=== PATIENT | male | born 1945 | race Caucasian/White ===

== ENCOUNTER 2019-08-10 14:10 | Outpatient (RCR) | payer MEDICARE, SELFPAY ==
[2019-06-09 12:40] LABS: INR 2.4; Prothrombin Time 25.9 Seconds (11.1-14.7)
[2019-07-08 13:50] LABS: INR 2.5; Prothrombin Time 26.4 Seconds (11.1-14.7)
[2019-08-10 15:02] LABS: INR 2.4; Prothrombin Time 25.7 Seconds (11.1-14.7)
== END 2019-09-07 23:59 | disposition home or self-care (01) ==
LOC: ANHLAB 14:10
PROVIDERS: PCP Internal Medicine; Visit Provider Internal Medicine Cardiovascular Disease
DX: Z51.81 Encounter for therapeutic drug level monitoring (principal); Z79.01 Long term (current) use of anticoagulants; Z95.2 Presence of prosthetic heart valve
CPT/HCPCS: 36415; 85610

== ENCOUNTER 2019-12-09 11:26 | Outpatient (RCR) | payer MEDICARE, SELFPAY ==
[2019-09-12 14:25] LABS: INR 2.1; Prothrombin Time 23.5 Seconds (11.1-14.7)
[2019-09-29 15:08] LABS: INR 2.5; Prothrombin Time 26.9 Seconds (11.1-14.7)
[2019-12-09 12:08] LABS: INR 2.3; Prothrombin Time 24.6 Seconds (11.1-14.7)
== END 2019-12-11 23:59 | disposition home or self-care (01) ==
LOC: ANHLAB 11:26
PROVIDERS: PCP Internal Medicine; Visit Provider Internal Medicine Cardiovascular Disease
DX: Z95.2 Presence of prosthetic heart valve (principal); Z79.01 Long term (current) use of anticoagulants
CPT/HCPCS: 36415; 85610

== ENCOUNTER 2020-01-16 14:31 | Outpatient (CLI) | payer MEDICARE, SELFPAY ==
[2020-01-16 15:00] LABS: Add Urine Microscopic? YES; Appearance Urine Clear (Clear); Bilirubin Urine Negative (Negative); Blood Urine 1+ (Negative); Color Urine Yellow (Yellow); Glucose Urine UA 3+ mg/dL (Negative); Ketones Urine Negative (Negative); Leukocyte Esterase Ur Negative LEU/UL (NEGATIVE); Mucus Urine Rare /lpf; Nitrate Urine Negative (Negative); Protein Urine Negative (Negative); RBC Urine 0-2 /hpf (0-2); Specific Grav Ur 1.021 (1.001-1.035); Squamous Epithelial Cell Urine Rare /hpf (Few); Urobilinogen Urine Negative mg/dL (<2.0); WBC Urine 0-3 /hpf (0-3)
[2020-01-16 15:14] LABS: Alanine Aminotransferase 17 U/L (4-50); Albumin Level 4.4 g/dL (3.5-5.1); Alkaline Phosphatase 63 U/L (38-126); Aspartate Amino Transferase 23 U/L (17-59); Bilirubin,Total 0.8 mg/dL (0.2-1.3); Blood Urea Nitrogen 18 mg/dL (9-20); Calcium 9.5 mg/dL (8.4-10.2); Carbon Dioxide 30 mmol/L (22-30); Chloride 104 mmol/L (98-107); Estimated Glomerular Filt Rate > 60; Glucose 150 mg/dL (75-110); Potassium 4.2 mmol/L (3.4-5.0); Sodium 140 mmol/L (137-145)
[2020-01-16 15:25] LABS: Hemoglobin A1C 7.6 % (<5.7)
[2020-01-16 16:16] LABS: Free T4 Free Thyroxine 1.16 ng/mL (0.78-2.19)
[2020-01-19 06:10] LABS: Homocysteine 15.5 umol/L (<11.4)
[2020-01-19 11:41] LABS: Vitamin D 1,25 (OH)2 Total 24 pg/mL (18-72); Vitamin D2 1,25 (OH)2 <8 pg/mL; Vitamin D3 1,25 (OH)2 24 pg/mL
== END 2020-01-16 14:32 | disposition home or self-care (01) ==
PROVIDERS: PCP Internal Medicine; Visit Provider Internal Medicine
DX: R79.89 Other specified abnormal findings of blood chemistry (principal); E11.9 Type 2 diabetes mellitus without complications; Z79.4 Long term (current) use of insulin; I10 Essential (primary) hypertension; Z79.899 Other long term (current) drug therapy; E55.9 Vitamin D deficiency, unspecified
CPT/HCPCS: 36415; 80053; 81001; 82652; 83036; 83090; 84439; 84443

== ENCOUNTER 2020-02-08 00:59 | Outpatient (CLI) | payer MEDICARE, SELFPAY ==
[2020-02-08 19:00] LABS: SARS-CoV-2 RNA PCR Negative
== END 2020-02-08 01:00 | disposition home or self-care (01) ==
LOC: ANHCOVIDDT 00:59
PROVIDERS: PCP Internal Medicine; Visit Provider Internal Medicine Gastroenterology
DX: Z01.812 Encounter for preprocedural laboratory examination (principal); Z11.59 Encounter for screening for other viral diseases
CPT/HCPCS: 87635; C9803; U0003

== ENCOUNTER 2020-02-10 01:16 | Day surgery (SDC) | payer MEDICARE, SELFPAY ==
[2020-01-26 11:55] VITALS: BMI 22.4
[2020-02-10 08:05] VITALS: BP 148/45; PULSE 54; RESP 16; TEMP 36.8; O2SAT 95
[2020-02-10 08:21] VITALS: BMI 22.3
--- NOTE | 2020-02-10 08:35 | WPDANESEPPF ---
Anes - Initial Pre Proc Eval Procedure: Operation Date: 02/10/20 10:00 Proposed Procedures p Colonoscopy - James Diane MD Date/Time: 02/10/20 08:35 Surgeon: James Diane MD Pre Op Diagnosis: Poss Cologuard Patient Data Age: 74 Gender: M Height: 5 ft 10 in Weight: 71 kg Allergies Allergy/AdvReac Type Severity Reaction Status Date / Time No Known Allergies Allergy Verified 02/10/20 08:20 Home Medications Medication Instructions Recorded Confirmed Type lisinopril 10 mg tablet 10 mg PO DAILY #90 tablet 08/31/19 02/02/20 Rx potassium chloride 10 mEq 10 meq PO DAILY #90 cap 08/31/19 02/02/20 Rx capsule,extended release aspirin 81 mg tablet,delayed 81 mg PO DAILY 09/07/19 02/02/20 History release cinnamon bark 500 mg capsule 500 mg PO DAILY 09/07/19 02/02/20 History empagliflozin 10 mg-metformin ER 1 tablet PO QAM 09/07/19 02/02/20 History 1,000 mg tablet,extended release 24hr folic acid 1 mg tablet 1 mg PO DAILY 09/07/19 02/02/20 History mecobalamin (vitamin B12) 1,000 1,000 mcg PO DAILY 09/07/19 02/02/20 History mcg chewable tablet niacin 500 mg tablet 500 mg PO DAILY 09/07/19 02/02/20 History warfarin 1 mg tablet 1 mg PO DAILY #90 tablet 09/07/19 02/02/20 Rx warfarin 2.5 mg tablet 2.5 mg PO DAILY 09/07/19 02/02/20 History metoprolol tartrate 25 mg tablet 25 mg PO BID #180 tablet 09/13/19 02/02/20 Rx digoxin 250 mcg (0.25 mg) tablet 250 mcg PO DAILY #90 tablet 11/07/19 02/02/20 Rx pen needle, diabetic 31 gauge x #100 each 11/15/19 02/02/20 Rx /16 blood sugar diagnostic #100 each 12/15/19 02/02/20 Rx nystatin 100,000 unit/gram topical 1 applic TOPICAL TID #15 gm 12/16/19 02/02/20 Rx cream cholecalciferol (vitamin D3) 50 50 mcg PO DAILY 01/16/20 02/02/20 History mcg (2,000 unit) capsule omega-3 fatty acids 1,000 mg 2,000 mg PO BID cap 01/16/20 02/02/20 History capsule atorvastatin 20 mg PO HS 01/26/20 02/02/20 History furosemide 10 mg PO QAM 01/26/20 02/02/20 History insulin detemir U-100 [Levemir 15 unit SUB-Q BID 01/26/20 02/02/20 History FlexTouch U-100 Insuln] triamcinolone acetonide 1 applic TOPICAL BID 01/26/20 02/02/20 History Laboratory Tests 02/10/20 08:17 PT Pending INR Pending Patient hx anesthesia problems: none Family hx anesthesia problems: none PMFSH Past Medical History Medical History A-fib ASHD (arteriosclerotic heart disease) Benign essential hypertension Bladder wall thickening Blood in stool BMI 23.0-23.9, adult Bruit Colon cancer screening COPD (chronic obstructive pulmonary disease) Decreased pedal pulses Diabetes mellitus type 2, insulin dependent Elevated homocysteine Encounter for Medicare annual wellness exam Encounter for routine adult health examination without abnormal findings Foreskin inflammation Hearing loss Heart valve disorder Hematuria Hyperlipidemia On senior living drug therapy Personal history of nicotine dependence Vitamin D deficiency Surgical History Surgical History (Updated 02/10/20 @ 08:39 by Dionisio Mcguire MD) H/O aortic valve replacement Family History Family History Father Family history of malignant neoplasm Other Family history of cardiovascular disease Family history of pancreatic cancer Social History Social History Smoking status: Heavy tobacco smoker Second hand tobacco smoke exposure: Yes Alcohol intake: never Anes - Eval Final PreProcedure Day of Procedure 02/10/20 08:35 Patient weight: normal Heart: irregular rhythm Lungs: clear to auscultation Airway: Mallampati scale class II Neurological: alert and oriented Last oral intake: >/= 8 hours ASA classification: IV Emergent: no Anesthetic plan: proceed Anesthesia type and monitoring: general GIVS and standard monitoring Informed Cons
[2020-02-10 08:37] LABS: INR 1.2; Prothrombin Time 15.2 Seconds (11.1-14.7)
--- NOTE | 2020-02-10 08:41 | WPDGICN ---
Assessment and Plan Assessment and plan (1) Positive colorectal cancer screening using Cologuard test: Code(s): R19.5 - Other fecal abnormalities Status: Acute Assessment and Plan: Plan is for screening colonoscopy. Warfarin anticoagulation will be held briefly prior to exam period with approval of cardiology service. Further recommendations will be given after endoscopy. 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 Patient in usual state of health. Had a colon guard test that was found to be positive. Patient denies any abdominal pain. His weight appetite bowel movements are normal. He denies any blood in his stools. Family history is noncontributory. Past medical history is significant for aortic valve replacement for which she is on Coumadin anticoagulation. This will be held for several days in anticipation of screening colonoscopy. Review of Systems Review of Systems: All systems reviewed & are unremarkable except as noted in HPI and below PMFSH Past Medical History Medical History A-fib ASHD (arteriosclerotic heart disease) Benign essential hypertension Bladder wall thickening Blood in stool BMI 23.0-23.9, adult Bruit Colon cancer screening COPD (chronic obstructive pulmonary disease) Decreased pedal pulses Diabetes mellitus type 2, insulin dependent Elevated homocysteine Encounter for Medicare annual wellness exam Encounter for routine adult health examination without abnormal findings Foreskin inflammation Hearing loss Heart valve disorder Hematuria Hyperlipidemia 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 drug therapy Personal history of nicotine dependence Vitamin D deficiency Surgical History Surgical History H/O aortic valve replacement Family History Family History Father Family history of malignant neoplasm Other Family history of cardiovascular disease Family history of pancreatic cancer Social History Social History Smoking status: Heavy tobacco smoker Second hand tobacco smoke exposure: Yes Alcohol intake: never Meds Home Medications and Allergies Home Medications Medication Instructions Recorded Confirmed Type lisinopril 10 mg tablet 10 mg PO DAILY #90 tablet 08/31/19 02/02/20 Rx potassium chloride 10 mEq 10 meq PO DAILY #90 cap 08/31/19 02/02/20 Rx capsule,extended release aspirin 81 mg tablet,delayed 81 mg PO DAILY 09/07/19 02/02/20 History release cinnamon bark 500 mg capsule 500 mg PO DAILY 09/07/19 02/02/20 History empagliflozin 10 mg-metformin ER 1 tablet PO QAM 09/07/19 02/02/20 History 1,000 mg tablet,extended release 24hr folic acid 1 mg tablet 1 mg PO DAILY 09/07/19 02/02/20 History mecobalamin (vitamin B12) 1,000 1,000 mcg PO DAILY 09/07/19 02/02/20 History mcg chewable tablet niacin 500 mg tablet 500 mg PO DAILY 09/07/19 02/02/20 History warfarin 1 mg tablet 1 mg PO DAILY #90 tablet 09/07/19 02/02/20 Rx warfa
[2020-02-10 08:45] LABS: Glucose Point of Care 66 (65-105)
[2020-02-10] MEDS: GENTAMICIN 80MG/SOD CHL 50 ML 80 MG/50 ML BAG 100 MG IVPB (08:45)
[2020-02-10] MEDS: LACTATED RINGERS 1,000 ML 150 ML IV CONT (08:53)
[2020-02-10] MEDS: DEXTROSE 50% 25 GM/50 ML SYRINGE IV PUSH (08:55)
[2020-02-10 09:02] LABS: Glucose Point of Care 148 (65-105)
[2020-02-10] MEDS: AMPICILLIN 2 GM/NS 100 ML 2 GM/100 ML BAG IVPB (09:06)
[2020-02-10 09:30] VITALS: BP 96/46; PULSE 52; RESP 16; O2SAT 96
[2020-02-10 09:40] VITALS: BP 92/44; PULSE 45; RESP 16; O2SAT 100
[2020-02-10 09:40] LABS: Glucose Point of Care 117 (65-105)
[2020-02-10 09:50] VITALS: BP 120/51; PULSE 41; RESP 16; O2SAT 99
--- NOTE | 2020-02-10 10:03 | SUR.PHASEII ---
[facility] IS EN ROUTE; 20 MINUTES AWAY. PT DRESSED, AWAITING RIDE.
== END 2020-02-10 10:21 | disposition home or self-care (01) ==
PROVIDERS: PCP Internal Medicine; Visit Provider Internal Medicine Gastroenterology
PROC: 0DJD8ZZ Inspection of Lower Intestinal Tract, Via Natural or Artificial Opening Endoscopic (ICD-10-PCS; CPT 45378; principal; 2020-02-10 10:00)
DX: K63.5 Polyp of colon (principal); K57.30 Diverticulosis of large intestine without perforation or abscess without bleeding; I48.91 Unspecified atrial fibrillation; E11.9 Type 2 diabetes mellitus without complications; Z79.4 Long term (current) use of insulin; J44.9 Chronic obstructive pulmonary disease, unspecified; E78.5 Hyperlipidemia, unspecified; I50.9 Heart failure, unspecified; I25.10 Atherosclerotic heart disease of native coronary artery without angina pectoris; E55.9 Vitamin D deficiency, unspecified; Z95.2 Presence of prosthetic heart valve; Z79.01 Long term (current) use of anticoagulants; Z79.82 Long term (current) use of aspirin; Z79.899 Other long term (current) drug therapy; F17.200 Nicotine dependence, unspecified, uncomplicated
CPT/HCPCS: 45385; 36415; 85610; 87635; 88305; C9803; J0290; J1580; J2001; J2704; J7120; U0003

== ENCOUNTER 2020-04-18 13:51 | Outpatient (CLI) | payer MEDICARE, SELFPAY ==
[2020-04-18 14:38] LABS: Basophils Absolute Auto 0.1 K/mm3 (0.0-0.1); Basophils Percent Auto 0.5 % (0.2-1.2); Eosinophils Absolute Auto 0.3 K/mm3 (0-0.3); Hematocrit 50.8 % (42.0-52.0); Immature Granulocyte Absolute 0.04 K/mm3 (0.00-0.031); Immature Granulocyte Percent A 0.4 % (0-0.5); Lymphocytes Absolute Auto 3.07 K/mm3 (0.9-3.2); Lymphocytes Percent Auto 30.6 % (18.3-44.2); Mean Corpuscular HGB Conc 33.5 g/dl (32-36); Mean Corpuscular Hemoglobin 33.5 pg (26-34); Mean Platelet Volume 11.1 fl (7.4-10.4); Monocytes Absolute Auto 0.8 K/mm3 (0.1-0.6); Monocytes Percent Auto 7.6 % (2.6-8.5); Neutrophils Absolute Auto 5.8 K/mm3 (1.3-6.7); Neutrophils Percent Auto 57.9 % (45.5-73.1); Platelet Count Result 144 k/mm3 (150-375); Red Blood Count 5.08 M/mm3 (4.6-6.20); Red Cell Distribution Width 12.5 % (11.5-14.5)
[2020-04-18 14:47] LABS: Hemoglobin A1C 6.8 % (<5.7)
[2020-04-18 14:51] LABS: Alanine Aminotransferase 16 U/L (4-50); Albumin Level 4.5 g/dL (3.5-5.1); Alkaline Phosphatase 57 U/L (38-126); Anion Gap 3 mmol/L (8-16); Aspartate Amino Transferase 22 U/L (17-59); Bilirubin,Total 0.9 mg/dL (0.2-1.3); Blood Urea Nitrogen 20 mg/dL (9-20); Calcium 10.3 mg/dL (8.4-10.2); Carbon Dioxide 35 mmol/L (22-30); Chloride 101 mmol/L (98-107); Estimated Glomerular Filt Rate > 60; Glucose 169 mg/dL (75-110); Potassium 4.6 mmol/L (3.4-5.0); Sodium 139 mmol/L (137-145)
[2020-04-18 15:16] LABS: Add Urine Microscopic? YES; Appearance Urine Clear (Clear); Bilirubin Urine Negative (Negative); Blood Urine 1+ (Negative); Color Urine Yellow (Yellow); Glucose Urine UA 3+ mg/dL (Negative); Ketones Urine Negative (Negative); Leukocyte Esterase Ur Trace LEU/UL (NEGATIVE); Mucus Urine Rare /lpf; Nitrate Urine Negative (Negative); Protein Urine Negative (Negative); Specific Grav Ur 1.023 (1.001-1.035); Squamous Epithelial Cell Urine Occasional /hpf (Few); Urobilinogen Urine Negative mg/dL (<2.0)
[2020-04-18 15:21] LABS: Prostate Specific Antigen 3.1 ng/mL (< OR = 4.0)
[2020-04-18 15:55] LABS: Creatinine Urine 58.6 mg/dL
[2020-04-18 15:59] LABS: Microalbumin Urine Random 21.7 mg/L (0-16.7)
[2020-04-21 15:44] LABS: Homocysteine 16.9 umol/L (<11.4)
[2020-04-21 23:21] LABS: Vitamin D 1,25 (OH)2 Total 25 pg/mL (18-72); Vitamin D2 1,25 (OH)2 <8 pg/mL; Vitamin D3 1,25 (OH)2 25 pg/mL
== END 2020-04-18 13:52 | disposition home or self-care (01) ==
PROVIDERS: PCP Internal Medicine; Visit Provider Internal Medicine
DX: E55.9 Vitamin D deficiency, unspecified (principal); Z79.899 Other long term (current) drug therapy; R79.89 Other specified abnormal findings of blood chemistry; I10 Essential (primary) hypertension; E11.9 Type 2 diabetes mellitus without complications; Z79.4 Long term (current) use of insulin; Z12.5 Encounter for screening for malignant neoplasm of prostate
CPT/HCPCS: 36415; 80053; 81001; 82043; 82652; 83036; 83090; 84153; 84439; 84443; 85025; 85610; G0103

== ENCOUNTER 2020-06-13 10:14 | Outpatient (RCR) | payer MEDICARE, SELFPAY ==
[2020-03-27 14:44] LABS: INR 3.2; Prothrombin Time 32.1 Seconds (11.1-14.7)
[2020-04-18 14:49] LABS: Prothrombin Time 30.6 Seconds (11.1-14.7)
[2020-06-13 11:08] LABS: INR 1.7; Prothrombin Time 20.1 Seconds (11.1-14.7)
== END 2020-06-25 23:59 | disposition home or self-care (01) ==
LOC: ANHLAB 10:14
PROVIDERS: PCP Internal Medicine; Visit Provider Internal Medicine Cardiovascular Disease
DX: I48.21 Permanent atrial fibrillation (principal); Z95.4 Presence of other heart-valve replacement
CPT/HCPCS: 36415; 85610

== ENCOUNTER 2020-06-13 10:17 | Outpatient (CLI) | payer MEDICARE, SELFPAY ==
[2020-06-13 11:35] LABS: Digoxin 1.2 ng/mL (0.8-2.0)
== END 2020-06-13 10:18 | disposition home or self-care (01) ==
PROVIDERS: PCP Internal Medicine; Visit Provider Internal Medicine
DX: I48.91 Unspecified atrial fibrillation (principal); Z51.81 Encounter for therapeutic drug level monitoring; Z79.899 Other long term (current) drug therapy
CPT/HCPCS: 36415; 80162; 85610

== ENCOUNTER 2020-08-16 14:26 | Outpatient (CLI) | payer MEDICARE, SELFPAY ==
[2020-08-16 15:09] LABS: Alanine Aminotransferase 16 U/L (4-50); Albumin Level 4.2 g/dL (3.5-5.1); Alkaline Phosphatase 60 U/L (38-126); Anion Gap 5 mmol/L (8-16); Aspartate Amino Transferase 24 U/L (17-59); Bilirubin,Total 0.6 mg/dL (0.2-1.3); Blood Urea Nitrogen 19 mg/dL (9-20); Calcium 9.1 mg/dL (8.4-10.2); Carbon Dioxide 33 mmol/L (22-30); Chloride 101 mmol/L (98-107); Cholesterol 124 mg/dL (0-200); Estimated Glomerular Filt Rate > 60; Glucose 135 mg/dL (75-110); HDL Direct 41 mg/dL; Hemoglobin A1C 7.1 % (<5.7); Potassium 4.4 mmol/L (3.4-5.0); Sodium 139 mmol/L (137-145); Triglycerides 204 mg/dL (<150)
[2020-08-16 15:20] LABS: LDL Cholesterol Direct 59 mg/dL
[2020-08-16 16:04] LABS: Vitamin D 25 Hydroxy 90.1 ng/mL
== END 2020-08-16 14:27 | disposition home or self-care (01) ==
PROVIDERS: Family Provider Internal Medicine; PCP Internal Medicine; Visit Provider Internal Medicine
DX: E55.9 Vitamin D deficiency, unspecified (principal); E11.9 Type 2 diabetes mellitus without complications; Z79.4 Long term (current) use of insulin; I10 Essential (primary) hypertension; E78.2 Mixed hyperlipidemia
CPT/HCPCS: 36415; 80053; 80061; 82306; 83036; 85610

== ENCOUNTER 2020-10-01 12:34 | Outpatient (CLI) | payer MEDICARE, SELFPAY ==
--- NOTE | ~2020-10-01 | CT_ITS ---
EXAMINATION: CT lung screening DATE: 10/01/2020 13:39 INDICATION: Personal history of tobacco dependence TECHNIQUE: Computed tomography (CT) of the chest was performed without intravenous contrast. The dose -length product (DLP) was 93.94 mGy-cm. Automated exposure control and iterative reconstruction techn ique were employed. COMPARISON: 03/04/2019 FINDINGS: Calcified right lung nodules and calcified right hilar and mediastinal lymph nodes are cons istent with old granulomatous disease. No new or suspicious pulmonary nodule is identified. The lungs are free of acute opacities. There is no pleural effusion or pneumothorax. No pathologically enlarge d thoracic lymph nodes are identified. The heart size is normal. There are changes of aortic valve rodriguez rgery. There is moderate thoracic spondylosis. IMPRESSION: 1. Lung-RADS category 1: Negative. Continue annual screening with noncontrast low-dose chest CT in 12 months. Reviewed, dictated and finalized at location A. CE SUPPORT CLERK IMPRESSION: 1. Lung-RADS category 1: Negative. Continue annual screening with noncontrast l ow-dose chest CT in 12 months.
--- NOTE | ~2020-10-01 | US_ITS ---
EXAMINATION: US carotid duplex BI DATE: 10/01/2020 13:41 INDICATION: Peripheral vascular disease TECHNIQUE: Grayscale, color Doppler, and pulsed Doppler images of the cervical carotid arteries were obtained. The degree of vessel stenosis is placed in one of the following categories: normal, <50%, 5 0-69%, >=70% but less than near-occlusion, near-occlusion, or total occlusion. Note that percent sten osis relative to normal distal artery lumen diameter is indirectly measured from velocity measurement s as described by J Carlos, et al. Radiology 2003; [id number]:[id number]. Notes: Normal: Peak systolic velocity <125 centimeters/sec and no plaque <50%. Peak systolic velocity <125 ( EDV <40; ICA/CCA PSV ratio <2.0; used these factors only a tandem lesions or low cardiac output or co ntralateral disease) 50-69 %: PSV 125-230 (EDV 40-100; ratio 2-4) >= 70% but less than near occlusion: PSV greater than 230 (EDV > 100; ratio> 4.0) Near Occlusion: PSV that is variable; markedly narrowed lumen Occlusion: Absent flow on color/spectral Doppler and no lumen on beal scale. COMPARISON: None. FINDINGS: RIGHT: The right common carotid artery (CCA) peak systolic velocity (PSV) is 83 cm/s. The right internal car otid artery (ICA) PSV is 94 cm/s. The right ICA end-diastolic velocity (EDV) is 19 cm/s. The right IC A/CCA PSV ratio is 1.1. The external carotid artery (ECA) PSV is 110 cm/s. There is antegrade flow in the right vertebral artery. LEFT: The left CCA PSV is 144 cm/s. The left ICA PSV is 81 cm/s. The left ICA EDV is 12 cm/s. The left ICA/ CCA PSV ratio is 0.6. The ECA PSV is 90 cm/s. There is antegrade flow in the left vertebral artery. IMPRESSION: 1. Less than 50% stenosis in the right internal carotid artery by sonographic criteria. 2. Less than 50% stenosis in the left internal carotid artery by sonographic criteria. Reviewed, dictated and finalized at location A. ENT AMBASSADOR IMPRESSION: 1. Less than 50% stenosis in the right internal carotid artery by sonographic issac gomez. 2. Less than 50% stenosis in the left internal carotid artery by sonographic kenton acosta.
== END 2020-10-01 12:35 | disposition home or self-care (01) ==
PROVIDERS: PCP Internal Medicine; Visit Provider Internal Medicine
DX: Z12.2 Encounter for screening for malignant neoplasm of respiratory organs (principal); Z87.891 Personal history of nicotine dependence; I65.23 Occlusion and stenosis of bilateral carotid arteries
CPT/HCPCS: 71271; 93880

== ENCOUNTER 2020-10-23 13:47 | Outpatient (RCR) | payer MEDICARE, SELFPAY ==
[2020-08-16 15:06] LABS: INR 1.9; Prothrombin Time 22.2 Seconds (11.1-14.7)
== END 2020-11-14 23:59 | disposition home or self-care (01) ==
LOC: ANHLAB 13:47
PROVIDERS: Family Provider Internal Medicine; PCP Internal Medicine; Visit Provider Internal Medicine Cardiovascular Disease
DX: Z51.81 Encounter for therapeutic drug level monitoring (principal); I48.21 Permanent atrial fibrillation; I48.0 Paroxysmal atrial fibrillation; Z95.4 Presence of other heart-valve replacement; Z79.01 Long term (current) use of anticoagulants
CPT/HCPCS: 36415; 85610

== ENCOUNTER 2021-02-26 12:37 | Outpatient (RCR) | payer MEDICARE, SELFPAY ==
[2020-11-29 13:38] LABS: INR 1.5; Prothrombin Time 18.8 Seconds (11.1-14.7)
[2020-12-14 12:00] LABS: INR 2.3; Prothrombin Time 25.9 Seconds (11.1-14.7)
[2021-01-10 13:13] LABS: INR 2.2; Prothrombin Time 24.7 Seconds (11.1-14.7)
[2021-02-11 13:07] LABS: INR 2.3; Prothrombin Time 24.3 Seconds (11.1-14.7)
[2021-02-26 13:05] LABS: INR 2.5; Prothrombin Time 26.2 Seconds (11.1-14.7)
== END 2021-02-27 23:59 | disposition home or self-care (01) ==
LOC: ANHLAB 12:37
PROVIDERS: PCP Internal Medicine; Visit Provider Internal Medicine Cardiovascular Disease
DX: Z51.81 Encounter for therapeutic drug level monitoring (principal); I48.0 Paroxysmal atrial fibrillation; Z79.01 Long term (current) use of anticoagulants
CPT/HCPCS: 36415; 85610

== ENCOUNTER 2021-03-13 14:38 | Outpatient (CLI) | payer MEDICARE, SELFPAY ==
[2021-03-13 15:12] LABS: Basophils Absolute Auto 0.1 K/mm3 (0.0-0.1); Basophils Percent Auto 0.6 % (0.2-1.2); Eosinophils Absolute Auto 0.4 K/mm3 (0-0.3); Eosinophils Percent Auto 3.8 % (0-4.4); Hematocrit 47.8 % (42.0-52.0); Hemoglobin 15.7 g/dL (14.0-18.0); Immature Granulocyte Absolute 0.02 K/mm3 (0.00-0.031); Immature Granulocyte Percent A 0.2 % (0-0.5); Lymphocytes Absolute Auto 2.67 K/mm3 (0.9-3.2); Lymphocytes Percent Auto 28.9 % (18.3-44.2); Mean Corpuscular HGB Conc 32.8 g/dl (32-36); Mean Corpuscular Hemoglobin 33.5 pg (26-34); Mean Corpuscular Volume 102.1 fl (80-100); Mean Platelet Volume 11.1 fl (7.4-10.4); Monocytes Absolute Auto 0.8 K/mm3 (0.1-0.6); Monocytes Percent Auto 8.5 % (2.6-8.5); Neutrophils Absolute Auto 5.4 K/mm3 (1.3-6.7); Platelet Count Result 141 k/mm3 (150-375); Red Blood Count 4.68 M/mm3 (4.6-6.20); Red Cell Distribution Width 13.2 % (11.5-14.5); White Blood Count 9.2 K/mm3 (4.5-10.0)
[2021-03-13 15:23] LABS: Alanine Aminotransferase 17 U/L (4-50); Albumin Level 4.3 g/dL (3.5-5.1); Alkaline Phosphatase 57 U/L (38-126); Anion Gap 3 mmol/L (8-16); Aspartate Amino Transferase 25 U/L (17-59); Bilirubin,Total 0.9 mg/dL (0.2-1.3); Blood Urea Nitrogen 20 mg/dL (9-20); Calcium 9.4 mg/dL (8.4-10.2); Carbon Dioxide 33 mmol/L (22-30); Chloride 104 mmol/L (98-107); Estimated Glomerular Filt Rate > 60; Glucose 85 mg/dL (65-110); Potassium 4.2 mmol/L (3.4-5.0); Sodium 140 mmol/L (137-145)
[2021-03-13 15:39] LABS: Digoxin 1.2 ng/mL (0.8-2.0)
[2021-03-13 15:47] LABS: Add Urine Microscopic? YES; Appearance Urine Clear (Clear); Bacteria Urine Trace /hpf; Bilirubin Urine Negative (Negative); Blood Urine Negative (Negative); Color Urine Yellow (Yellow); Creatinine Urine 69.6 mg/dL; Glucose Urine UA 3+ mg/dL (Negative); Ketones Urine Negative (Negative); Leukocyte Esterase Ur Negative LEU/UL (Negative); MALB Creatinine Ratio 12.9 mg/g (0-30); Mucus Urine Rare /lpf; Nitrate Urine Negative (Negative); Protein Urine Negative (Negative); RBC Urine 0-2 /hpf (0-2); Specific Grav Ur 1.017 (1.001-1.035); Squamous Epithelial Cell Urine Rare /hpf (Few); Urobilinogen Urine Negative mg/dL (<2.0); WBC Urine 0-3 /hpf
[2021-03-13 15:57] LABS: Free T4 Free Thyroxine 0.93 ng/mL (0.78-2.19)
[2021-03-13 16:35] LABS: Folic Acid > 20.0 ng/mL (2.76->20)
[2021-03-13 20:12] LABS: Hemoglobin A1C 7.4 % (<5.7)
== END 2021-03-13 14:39 | disposition home or self-care (01) ==
PROVIDERS: PCP Internal Medicine; Visit Provider Internal Medicine
DX: I10 Essential (primary) hypertension (principal); Z79.899 Other long term (current) drug therapy; R63.4 Abnormal weight loss; E11.9 Type 2 diabetes mellitus without complications; Z79.4 Long term (current) use of insulin; E53.8 Deficiency of other specified B group vitamins
CPT/HCPCS: 36415; 80053; 80162; 81001; 82043; 82607; 82746; 83036; 84134; 84439; 84443; 85025

== ENCOUNTER 2021-04-04 11:04 | Outpatient (CLI) | payer MEDICARE, SELFPAY ==
[2021-04-04 12:21] LABS: Cholesterol 99 mg/dL (0-200); HDL Direct 39 mg/dL; Triglycerides 122 mg/dL (<150)
[2021-04-04 12:31] LABS: LDL Cholesterol Direct 45 mg/dL
== END 2021-04-04 11:05 | disposition home or self-care (01) ==
LOC: ANHLAB 11:08
PROVIDERS: PCP Internal Medicine; Visit Provider Internal Medicine
DX: E78.2 Mixed hyperlipidemia (principal); Z79.899 Other long term (current) drug therapy
CPT/HCPCS: 36415; 80061; 85610

== ENCOUNTER 2021-07-01 11:21 | Outpatient (RCR) | payer MEDICARE, SELFPAY ==
[2021-04-04 12:20] LABS: INR 2.7; Prothrombin Time 27.9 Seconds (11.1-14.7)
[2021-05-02 14:30] LABS: INR 2.3; Prothrombin Time 24.4 Seconds (11.1-14.7)
[2021-05-29 14:33] LABS: INR 2.8; Prothrombin Time 28.4 Seconds (11.1-14.7)
[2021-07-01 11:54] LABS: INR 2.4; Prothrombin Time 25.6 Seconds (11.1-14.7)
== END 2021-07-03 23:59 | disposition home or self-care (01) ==
LOC: ANHLAB 11:21
PROVIDERS: PCP Internal Medicine; Visit Provider Internal Medicine Cardiovascular Disease
DX: Z51.81 Encounter for therapeutic drug level monitoring (principal); I48.0 Paroxysmal atrial fibrillation; Z79.01 Long term (current) use of anticoagulants
CPT/HCPCS: 36415; 85610

== ENCOUNTER 2021-08-02 10:49 | Outpatient (CLI) | payer MEDICARE, SELFPAY ==
[2021-08-02 11:41] LABS: Anion Gap 3 mmol/L (8-16); Blood Urea Nitrogen 16 mg/dL (9-20); Calcium 9.4 mg/dL (8.4-10.2); Carbon Dioxide 34 mmol/L (22-30); Chloride 103 mmol/L (98-107); Cholesterol 156 mg/dL (0-200); Estimated Glomerular Filt Rate > 60; Glucose 138 mg/dL (65-110); HDL Direct 41 mg/dL; Potassium 4.4 mmol/L (3.4-5.0); Sodium 140 mmol/L (137-145); Triglycerides 97 mg/dL (<150)
[2021-08-02 11:44] LABS: Hemoglobin A1C 7.1 % (<5.7)
[2021-08-02 11:52] LABS: LDL Cholesterol Direct 92 mg/dL
[2021-08-02 12:12] LABS: Prostate Specific Antigen 2.9 ng/mL (< OR = 4.0)
== END 2021-08-02 10:50 | disposition home or self-care (01) ==
PROVIDERS: PCP Internal Medicine; Visit Provider Internal Medicine
DX: E78.2 Mixed hyperlipidemia (principal); I10 Essential (primary) hypertension; E11.9 Type 2 diabetes mellitus without complications; Z12.5 Encounter for screening for malignant neoplasm of prostate; Z79.4 Long term (current) use of insulin; Z79.899 Other long term (current) drug therapy
CPT/HCPCS: 36415; 80048; 80061; 83036; 84153; G0103

== ENCOUNTER 2021-10-04 08:25 | Outpatient (CLI) | payer MEDICARE, SELFPAY ==
--- NOTE | ~2021-10-04 | CT_ITS ---
EXAMINATION: CT lung screening DATE: 10/04/2021 09:02 INDICATION: Personal history of nicotine dependence, current smoker with 60 pack year history TECHNIQUE: Computed tomography (CT) of the chest was performed without intravenous contrast. The dose -length product (DLP) was 85.45 mGy-cm. Automated exposure control and iterative reconstruction techn [employer] were employed. COMPARISON: 10/01/2020 FINDINGS: There is mild emphysema. Calcified pulmonary nodules and calcified right hilar and mediasti nal lymph nodes are consistent with old granulomatous disease. The lungs are free of acute opacities. No new or suspicious pulmonary nodule is identified. There is no pleural effusion or pneumothorax. C hanges of aortic valve surgery are noted. There are no pathologically enlarged thoracic lymph nodes. The heart size is normal. Punctate calcifications in otherwise normal appearing liver and spleen like ly represent healed granulomatous disease. There is moderate thoracic spondylosis. IMPRESSION: 1. Lung-RADS category 1: Negative. Continue annual screening with noncontrast low-dose chest CT in 12 months. Reviewed, dictated and finalized at location B. BUILDER IMPRESSION: 1. Lung-RADS category 1: Negative. Continue annual screening with noncontrast l ow-dose chest CT in 12 months.
== END 2021-10-04 08:26 | disposition home or self-care (01) ==
PROVIDERS: PCP Internal Medicine; Visit Provider Internal Medicine
DX: Z12.2 Encounter for screening for malignant neoplasm of respiratory organs (principal); Z87.891 Personal history of nicotine dependence
CPT/HCPCS: 71271

== ENCOUNTER 2021-10-22 14:27 | Outpatient (RCR) | payer MEDICARE, SELFPAY ==
[2021-09-10 15:03] LABS: INR 2.4
[2021-10-22 18:46] LABS: INR 2.3; Prothrombin Time 24.9 Seconds (11.1-14.7)
== END 2021-12-09 23:59 | disposition home or self-care (01) ==
LOC: ANHLAB 14:27
PROVIDERS: Internal Medicine Cardiovascular Disease; PCP Internal Medicine
DX: Z95.4 Presence of other heart-valve replacement (principal)
CPT/HCPCS: 36415; 85610

== ENCOUNTER 2022-04-02 13:25 | Outpatient (CLI) | payer MEDICARE, SELFPAY ==
[2022-04-02 14:30] LABS: Alanine Aminotransferase 16 U/L (6-50); Albumin Level 4.3 g/dL (3.5-5.1); Alkaline Phosphatase 57 U/L (38-126); Anion Gap 11 mmol/L (8-16); Aspartate Amino Transferase 26 U/L (17-59); Bilirubin,Total 0.8 mg/dL (0.2-1.3); Blood Urea Nitrogen 18 mg/dL (9-20); Carbon Dioxide 31 mmol/L (22-30); Chloride 99 mmol/L (98-107); Cholesterol 102 mg/dL (0-200); Estimated Glomerular Filt Rate > 60; Glucose 165 mg/dL (65-110); HDL Direct 44 mg/dL; Potassium 4.4 mmol/L (3.4-5.0); Sodium 141 mmol/L (137-145); Triglycerides 84 mg/dL (<150)
[2022-04-02 14:36] LABS: LDL Cholesterol Direct 35 mg/dL
[2022-04-02 14:38] LABS: Hemoglobin A1C 6.4 % (<5.7)
[2022-04-02 14:44] LABS: Free T4 Free Thyroxine 1.24 ng/mL (0.78-2.19); Vitamin D 25 Hydroxy 83.6 ng/mL
== END 2022-04-02 13:26 | disposition home or self-care (01) ==
LOC: ANHLAB 13:28
PROVIDERS: PCP Internal Medicine; Visit Provider Internal Medicine
DX: E78.2 Mixed hyperlipidemia (principal); Z13.29 Encounter for screening for other suspected endocrine disorder; Z79.899 Other long term (current) drug therapy; I10 Essential (primary) hypertension; E11.9 Type 2 diabetes mellitus without complications; Z79.4 Long term (current) use of insulin; E55.9 Vitamin D deficiency, unspecified
CPT/HCPCS: 36415; 80053; 80061; 82306; 83036; 84439; 84443; 85610

== ENCOUNTER 2022-06-10 13:53 | Outpatient (RCR) | payer MEDICARE, SELFPAY ==
[2022-04-02 14:19] LABS: INR 3.2; Prothrombin Time 31.7 Seconds (11.1-14.7)
[2022-04-10 14:59] LABS: INR 2.7; Prothrombin Time 27.9 Seconds (11.1-14.7)
[2022-05-12 14:28] LABS: INR 2.5; Prothrombin Time 25.9 Seconds (11.1-14.7)
[2022-06-10 14:33] LABS: INR 2.7; Prothrombin Time 28.1 Seconds (11.1-14.7)
== END 2022-07-01 23:59 | disposition home or self-care (01) ==
LOC: ANHLAB 13:53
PROVIDERS: PCP Internal Medicine; Visit Provider Specialist
DX: Z51.81 Encounter for therapeutic drug level monitoring (principal); I48.21 Permanent atrial fibrillation; Z95.4 Presence of other heart-valve replacement; Z79.01 Long term (current) use of anticoagulants
CPT/HCPCS: 36415; 85610

== ENCOUNTER 2022-10-07 14:07 | Outpatient (RCR) | payer MEDICARE, SELFPAY ==
[2022-07-09 12:01] LABS: INR 2.9; Prothrombin Time 29.3 Seconds (11.1-14.7)
[2022-08-06 15:24] LABS: INR 2.5; Prothrombin Time 26.1 Seconds (11.1-14.7)
[2022-09-09 11:36] LABS: INR 2.5; Prothrombin Time 25.7 Seconds (11.1-14.7)
[2022-10-07 15:04] LABS: INR 2.5; Prothrombin Time 26.5 Seconds (11.1-14.7)
== END 2022-10-07 23:59 | disposition home or self-care (01) ==
LOC: ANHLAB 14:07
PROVIDERS: PCP Internal Medicine; Visit Provider Specialist
DX: Z51.81 Encounter for therapeutic drug level monitoring (principal); I48.21 Permanent atrial fibrillation; Z95.4 Presence of other heart-valve replacement; Z79.01 Long term (current) use of anticoagulants
CPT/HCPCS: 36415; 85610

== ENCOUNTER 2022-11-10 12:27 | Outpatient (CLI) | payer MEDICARE, SELFPAY ==
[2022-11-10 13:04] LABS: Basophils Absolute Auto 0.1 K/mm3 (0.0-0.1); Basophils Percent Auto 0.7 % (0.2-1.2); Eosinophils Absolute Auto 0.3 K/mm3 (0-0.3); Eosinophils Percent Auto 2.7 % (0-4.4); Hematocrit 49.3 % (42.0-52.0); Hemoglobin 16.2 g/dL (14.0-18.0); Immature Granulocyte Absolute 0.04 K/mm3 (0.00-0.031); Immature Granulocyte Percent A 0.4 % (0-0.5); Lymphocytes Absolute Auto 3.59 K/mm3 (0.9-3.2); Lymphocytes Percent Auto 32.7 % (18.3-44.2); Mean Corpuscular HGB Conc 32.9 g/dl (32-36); Mean Corpuscular Hemoglobin 33.1 pg (26-34); Mean Corpuscular Volume 100.8 fl (80-100); Mean Platelet Volume 10.7 fl (7.4-10.4); Monocytes Absolute Auto 0.9 K/mm3 (0.1-0.6); Monocytes Percent Auto 7.7 % (2.6-8.5); Neutrophils Absolute Auto 6.1 K/mm3 (1.3-6.7); Neutrophils Percent Auto 55.8 % (45.5-73.1); Platelet Count Result 159 k/mm3 (150-375); Red Blood Count 4.89 M/mm3 (4.6-6.20); Red Cell Distribution Width 13.4 % (11.5-14.5)
[2022-11-10 13:16] LABS: Alanine Aminotransferase 18 U/L (6-50); Albumin Level 4.7 g/dL (3.5-5.1); Alkaline Phosphatase 80 U/L (38-126); Anion Gap 4 mmol/L (8-16); Aspartate Amino Transferase 23 U/L (17-59); Bilirubin,Total 0.9 mg/dL (0.2-1.3); Blood Urea Nitrogen 16 mg/dL (9-20); Calcium 9.4 mg/dL (8.4-10.2); Carbon Dioxide 38 mmol/L (22-30); Chloride 101 mmol/L (98-107); Cholesterol 142 mg/dL (0-200); Estimated Glomerular Filt Rate > 60; Glucose 132 mg/dL (65-110); HDL Direct 46 mg/dL; Potassium 4.2 mmol/L (3.4-5.0); Sodium 143 mmol/L (137-145); Triglycerides 170 mg/dL (<150)
[2022-11-10 13:27] LABS: LDL Cholesterol Direct 67 mg/dL
[2022-11-10 13:36] LABS: Creatinine Urine 31.5 mg/dL
[2022-11-10 13:42] LABS: MALB Creatinine Ratio 83.8 mg/g (0-30); Microalbumin Urine Random 26.4 mg/L (0-16.7)
[2022-11-10 13:47] LABS: Prostate Specific Antigen 2.8 ng/mL (< OR = 4.0)
[2022-11-10 14:00] LABS: Free T4 Free Thyroxine 1.11 ng/mL (0.78-2.19); Vitamin D 25 Hydroxy 95.6 ng/mL
== END 2022-11-10 12:28 | disposition home or self-care (01) ==
PROVIDERS: PCP Internal Medicine; Visit Provider Internal Medicine
DX: E11.9 Type 2 diabetes mellitus without complications (principal); E55.9 Vitamin D deficiency, unspecified; E78.2 Mixed hyperlipidemia; I10 Essential (primary) hypertension; Z12.5 Encounter for screening for malignant neoplasm of prostate; Z79.4 Long term (current) use of insulin; Z79.899 Other long term (current) drug therapy; Z13.29 Encounter for screening for other suspected endocrine disorder
CPT/HCPCS: 36415; 80053; 80061; 82043; 82306; 83036; 84153; 84439; 84443; 85025; G0103

== ENCOUNTER 2023-01-07 15:11 | Outpatient (RCR) | payer MEDICARE, SELFPAY ==
[2022-11-12 15:32] LABS: INR 2.6; Prothrombin Time 27.3 Seconds (11.1-14.7)
[2022-12-08 15:09] LABS: Prothrombin Time 23.9 Seconds (11.1-14.7)
[2023-01-08 11:03] LABS: INR 2.5; Prothrombin Time 28.8 Seconds (11.1-14.7)
== END 2023-02-10 23:59 | disposition home or self-care (01) ==
LOC: ANHLAB 15:11
PROVIDERS: PCP Internal Medicine; Visit Provider Specialist
DX: Z51.81 Encounter for therapeutic drug level monitoring (principal); I48.21 Permanent atrial fibrillation; Z95.4 Presence of other heart-valve replacement; Z79.01 Long term (current) use of anticoagulants
CPT/HCPCS: 36415; 85610

== ENCOUNTER 2023-04-09 13:58 | Outpatient (RCR) | payer MEDICARE, SELFPAY ==
[2023-02-11 13:31] LABS: INR 2.1; Prothrombin Time 24.5 Seconds (11.1-14.7)
[2023-03-10 14:29] LABS: INR 2.2; Prothrombin Time 25.9 Seconds (11.1-14.7)
[2023-04-09 15:57] LABS: INR 2.2; Prothrombin Time 25.5 Seconds (11.1-14.7)
== END 2023-04-21 11:06 | disposition home or self-care (01) ==
LOC: ANHLAB 13:58
PROVIDERS: PCP Internal Medicine; Visit Provider Specialist
DX: Z51.81 Encounter for therapeutic drug level monitoring (principal); I48.21 Permanent atrial fibrillation; Z95.4 Presence of other heart-valve replacement; Z79.01 Long term (current) use of anticoagulants
CPT/HCPCS: 36415; 85610

== ENCOUNTER 2023-05-18 10:52 | Outpatient (CLI) | payer MEDICARE, SELFPAY ==
[2023-05-18 11:13] LABS: Basophils Percent Auto 0.5 % (0.2-1.2); Eosinophils Absolute Auto 0.1 K/mm3 (0-0.3); Eosinophils Percent Auto 0.9 % (0-4.4); Hematocrit 44.5 % (42.0-52.0); Hemoglobin 14.5 g/dL (14.0-18.0); Immature Granulocyte Absolute 0.01 K/mm3 (0.00-0.031); Immature Granulocyte Percent A 0.1 % (0-0.5); Lymphocytes Absolute Auto 1.95 K/mm3 (0.9-3.2); Lymphocytes Percent Auto 25.6 % (18.3-44.2); Mean Corpuscular HGB Conc 32.6 g/dl (32-36); Mean Corpuscular Hemoglobin 33.4 pg (26-34); Mean Corpuscular Volume 102.5 fl (80-100); Mean Platelet Volume 10.6 fl (7.4-10.4); Monocytes Absolute Auto 0.6 K/mm3 (0.1-0.6); Monocytes Percent Auto 8.1 % (2.6-8.5); Neutrophils Absolute Auto 4.9 K/mm3 (1.3-6.7); Neutrophils Percent Auto 64.8 % (45.5-73.1); Platelet Count Result 128 k/mm3 (150-375); Red Blood Count 4.34 M/mm3 (4.6-6.20); Red Cell Distribution Width 13.1 % (11.5-14.5); White Blood Count 7.6 K/mm3 (4.5-10.0)
[2023-05-18 11:20] LABS: Hemoglobin A1C 5.9 % (<5.7)
[2023-05-18 11:25] LABS: Alanine Aminotransferase 17 U/L (6-50); Albumin Level 4.2 g/dL (3.5-5.1); Alkaline Phosphatase 63 U/L (38-126); Anion Gap 4 mmol/L (8-16); Aspartate Amino Transferase 26 U/L (17-59); Bilirubin,Total 1.2 mg/dL (0.2-1.3); Blood Urea Nitrogen 15 mg/dL (9-20); Calcium 9.4 mg/dL (8.4-10.2); Carbon Dioxide 32 mmol/L (22-30); Chloride 103 mmol/L (98-107); Cholesterol 124 mg/dL (0-200); Estimated Glomerular Filt Rate > 60; Glucose 70 mg/dL (65-110); HDL Direct 48 mg/dL; Sodium 139 mmol/L (137-145); Triglycerides 99 mg/dL (<150)
[2023-05-18 11:36] LABS: LDL Cholesterol Direct 63 mg/dL
[2023-05-18 11:52] LABS: Thyroid Stimulating Hormone 0.623 uIU/mL (0.465-4.680)
[2023-05-18 11:53] LABS: Free T4 Free Thyroxine 1.15 ng/mL (0.78-2.19)
[2023-05-18 12:31] LABS: Folic Acid > 20.0 ng/mL (2.76->20)
[2023-05-19 10:06] LABS: Prostate Specific Antigen 2.8 ng/mL (< OR = 4.0)
== END 2023-05-18 10:53 | disposition home or self-care (01) ==
PROVIDERS: PCP Internal Medicine; Visit Provider Internal Medicine
DX: Z13.1 Encounter for screening for diabetes mellitus (principal); Z79.899 Other long term (current) drug therapy; I10 Essential (primary) hypertension; Z13.29 Encounter for screening for other suspected endocrine disorder; E11.9 Type 2 diabetes mellitus without complications; Z79.4 Long term (current) use of insulin; E78.5 Hyperlipidemia, unspecified; E53.8 Deficiency of other specified B group vitamins; Z12.5 Encounter for screening for malignant neoplasm of prostate
CPT/HCPCS: 36415; 80053; 80061; 82607; 82746; 83036; 84153; 84439; 84443; 85025; G0103

== ENCOUNTER 2023-05-20 13:58 | Outpatient (CLI) | payer MEDICARE, SELFPAY ==
--- NOTE | ~2023-05-20 | CT_ITS ---
EXAMINATION:CT lung screening DATE: 05/20/2023 14:30 INDICATION: Tobacco use. Current smoker with 59 pack year history. TECHNIQUE: Computed tomography (CT) of the chest was performed without intravenous contrast. Automate d exposure control and iterative reconstruction technique were employed. The dose-length product (DLP ) was 79.62 mGy-cm. COMPARISON: Chest CT 10/04/2021 FINDINGS: There is mild emphysema. There is mild scarring at the lung apices. There is mild atelectas is bilaterally. There is a 2 mm nodule in left lower lobe. There is a 3 mm nodule in left upper lobe. Calcified right lung nodules and calcified right hilar and mediastinal lymph nodes are consistent wi th old granulomatous disease. No pleural effusion. The heart size is normal. There are coronary arter y calcifications. No pericardial effusion. There are changes of replacement of aortic valve and graft repair of the ascending aorta. Calcifications in the liver and spleen are consistent with old granul omatous disease. There is severe cervical spondylosis and moderate thoracic spondylosis. IMPRESSION: 1. Lung-RADS category 2: Benign appearance or behavior. Continue annual screening with noncontrast lo w-dose chest CT in 12 months. Reviewed, dictated and finalized at location E. IMPRESSION: 1. Lung-RADS category 2: Benign appearance or behavior. Continue annual screeni ng with noncontrast low-dose chest CT in 12 months.
[2023-05-20 15:14] LABS: Appearance Urine Clear (Clear); Bilirubin Urine Negative (Negative); Blood Urine Negative (Negative); Color Urine Yellow (Yellow); Glucose Urine UA 3+ mg/dL (Negative); Ketones Urine Negative (Negative); Leukocyte Esterase Ur Negative LEU/UL (Negative); Nitrate Urine Negative (Negative); Protein Urine Negative (Negative); Specific Grav Ur 1.021 (1.001-1.035)
[2023-05-20 15:29] LABS: Add Urine Microscopic? NO
== END 2023-05-20 13:59 | disposition home or self-care (01) ==
PROVIDERS: PCP Internal Medicine; Visit Provider Internal Medicine
DX: Z12.2 Encounter for screening for malignant neoplasm of respiratory organs (principal); Z87.891 Personal history of nicotine dependence; Z79.899 Other long term (current) drug therapy; E78.2 Mixed hyperlipidemia; E11.9 Type 2 diabetes mellitus without complications; Z79.4 Long term (current) use of insulin; I10 Essential (primary) hypertension
CPT/HCPCS: 71271; 81003

== ENCOUNTER 2023-07-14 13:30 | Outpatient (RCR) | payer MEDICARE, SELFPAY ==
[2023-04-21 12:06] LABS: INR 1.7; Prothrombin Time 20.7 Seconds (11.1-14.7)
[2023-05-07 15:08] LABS: INR 2.4; Prothrombin Time 28.2 Seconds (11.1-14.7)
[2023-06-09 15:38] LABS: INR 2.4; Prothrombin Time 27.9 Seconds (11.1-14.7)
[2023-06-25 14:27] LABS: INR 2.3; Prothrombin Time 26.7 Seconds (11.1-14.7)
[2023-07-14 14:34] LABS: INR 2.8; Prothrombin Time 31.8 Seconds (11.1-14.7)
== END 2023-07-20 23:59 | disposition home or self-care (01) ==
LOC: ANHLAB 13:30
PROVIDERS: PCP Internal Medicine; Visit Provider Specialist
DX: I48.21 Permanent atrial fibrillation (principal)
CPT/HCPCS: 36415; 85610

== ENCOUNTER 2023-10-06 13:42 | Outpatient (CLI) | payer MEDICARE, SELFPAY ==
[2023-10-06 14:21] LABS: Basophils Absolute Auto 0.1 K/mm3 (0.0-0.1); Basophils Percent Auto 0.7 % (0.2-1.2); Eosinophils Absolute Auto 0.4 K/mm3 (0-0.3); Eosinophils Percent Auto 3.5 % (0-4.4); Hematocrit 45.9 % (42.0-52.0); Hemoglobin 14.9 g/dL (14.0-18.0); Immature Granulocyte Absolute 0.03 K/mm3 (0.00-0.031); Immature Granulocyte Percent A 0.3 % (0-0.5); Lymphocytes Absolute Auto 3.43 K/mm3 (0.9-3.2); Lymphocytes Percent Auto 34.3 % (18.3-44.2); Mean Corpuscular HGB Conc 32.5 g/dl (32-36); Mean Corpuscular Hemoglobin 33.3 pg (26-34); Mean Corpuscular Volume 102.7 fl (80-100); Mean Platelet Volume 10.8 fl (7.4-10.4); Monocytes Absolute Auto 0.8 K/mm3 (0.1-0.6); Monocytes Percent Auto 7.8 % (2.6-8.5); Neutrophils Absolute Auto 5.3 K/mm3 (1.3-6.7); Neutrophils Percent Auto 53.4 % (45.5-73.1); Platelet Count Result 155 k/mm3 (150-375); Red Blood Count 4.47 M/mm3 (4.6-6.20); Red Cell Distribution Width 13.2 % (11.5-14.5)
[2023-10-06 14:23] LABS: Appearance Urine Clear (Clear); Bilirubin Urine Negative (Negative); Blood Urine Negative (Negative); Color Urine Yellow (Yellow); Glucose Urine UA 3+ mg/dL (Negative); Ketones Urine Negative (Negative); Leukocyte Esterase Ur Negative LEU/UL (Negative); Nitrate Urine Negative (Negative); Protein Urine Negative (Negative); Specific Grav Ur 1.018 (1.001-1.035)
[2023-10-06 14:27] LABS: Alanine Aminotransferase 13 U/L (6-50); Albumin Level 4.2 g/dL (3.5-5.1); Alkaline Phosphatase 69 U/L (38-126); Anion Gap 2 mmol/L (8-16); Aspartate Amino Transferase 24 U/L (17-59); Bilirubin,Total 0.9 mg/dL (0.2-1.3); Blood Urea Nitrogen 20 mg/dL (9-20); Calcium 9.5 mg/dL (8.4-10.2); Carbon Dioxide 34 mmol/L (22-30); Chloride 102 mmol/L (98-107); Cholesterol 117 mg/dL (0-200); Estimated Glomerular Filt Rate > 60; Glucose 104 mg/dL (65-110); HDL Direct 44 mg/dL; Potassium 4.4 mmol/L (3.4-5.0); Sodium 138 mmol/L (137-145); Triglycerides 70 mg/dL (<150)
[2023-10-06 14:34] LABS: Add Urine Microscopic? NO
[2023-10-06 14:38] LABS: LDL Cholesterol Direct 67 mg/dL
[2023-10-06 15:08] LABS: Hemoglobin A1C 7.1 % (<5.7)
== END 2023-10-06 13:43 | disposition home or self-care (01) ==
LOC: ANHLAB 13:44
PROVIDERS: PCP Internal Medicine; Visit Provider Internal Medicine
DX: E11.9 Type 2 diabetes mellitus without complications (principal); Z79.4 Long term (current) use of insulin; I10 Essential (primary) hypertension; E78.2 Mixed hyperlipidemia
CPT/HCPCS: 36415; 80053; 80061; 81003; 83036; 85025; 85610

== ENCOUNTER 2023-10-23 13:05 | Outpatient (RCR) | payer MEDICARE, SELFPAY ==
[2023-08-07 12:19] LABS: INR 1.8; Prothrombin Time 22.2 Seconds (11.1-14.7)
[2023-09-01 14:15] LABS: INR 2.5; Prothrombin Time 28.9 Seconds (11.1-14.7)
[2023-09-16 14:37] LABS: INR 2.1; Prothrombin Time 25.5 Seconds (11.1-14.7)
[2023-10-06 15:38] LABS: INR 2.5; Prothrombin Time 28.5 Seconds (11.1-14.7)
[2023-10-23 13:45] LABS: INR 2.2
== END 2023-11-05 23:59 | disposition home or self-care (01) ==
LOC: ANHLAB 13:05
PROVIDERS: PCP Internal Medicine; Visit Provider Specialist
DX: I48.21 Permanent atrial fibrillation (principal)
CPT/HCPCS: 36415; 85610

== ENCOUNTER 2023-10-29 13:27 | Outpatient (CLI) | payer MEDICARE, SELFPAY ==
--- NOTE | ~2023-10-29 | US_ITS ---
EXAMINATION: US carotid duplex BI DATE: 10/29/2023 15:11 INDICATION: subjective visual disturbance TECHNIQUE: Grayscale, color Doppler, and pulsed Doppler images of the cervical carotid arteries were obtained. The degree of vessel stenosis is placed in one of the following categories: normal, <50%, 5 0-69%, >=70% but less than near-occlusion, near-occlusion, or total occlusion. Note that percent sten osis relative to normal distal artery lumen diameter is indirectly measured from velocity measurement s as described by J Carlos, et al. Radiology 2003; [id number]. COMPARISON: None. FINDINGS: RIGHT: The right common carotid artery (CCA) peak systolic velocity (PSV) is 116 cm/s. The right internal ca rotid artery (ICA) PSV is 127 cm/s. The right ICA end-diastolic velocity (EDV) is 11 cm/s. The right ICA/CCA PSV ratio is 1.1. Grayscale and color Doppler images including secondary Doppler criteria yie ld an estimate of <50% diameter reduction from plaque in the ICA. The external carotid artery (ECA) P SV is 102 cm/s. There is antegrade flow in the right vertebral artery. LEFT: The left CCA PSV is 137 cm/s. The left ICA PSV is 109 cm/s. The left ICA EDV is 6 cm/s. The left ICA/ CCA PSV ratio is 0.8. Grayscale and color Doppler images yield an estimate of <50% diameter reduction from plaque in the ICA. The ECA PSV is 146 cm/s. There is antegrade flow in the left vertebral arter y. IMPRESSION: 1. <50% stenosis in the right internal carotid artery. 2. <50% stenosis in the left internal carotid artery. 3. Cardiac arrhythmia is present. Correlate with EKG. Reviewed, dictated and finalized at location A.
== END 2023-10-29 13:28 | disposition home or self-care (01) ==
PROVIDERS: PCP Internal Medicine; Visit Provider Internal Medicine
DX: R09.89 Other specified symptoms and signs involving the circulatory and respiratory systems (principal); I65.23 Occlusion and stenosis of bilateral carotid arteries
CPT/HCPCS: 93880

== ENCOUNTER 2024-01-26 11:21 | Outpatient (RCR) | payer MEDICARE, SELFPAY ==
[2023-11-09 11:42] LABS: INR 2.4; Prothrombin Time 28.2 Seconds (11.1-14.7)
[2023-11-27 13:37] LABS: INR 1.9; Prothrombin Time 22.7 Seconds (11.1-14.7)
[2023-12-22 14:53] LABS: INR 2.5
[2023-12-30 15:33] LABS: INR 2.4
[2024-01-26 12:41] LABS: INR 2.3; Prothrombin Time 25.7 Seconds (11.1-14.7)
== END 2024-02-07 23:59 | disposition home or self-care (01) ==
LOC: ANHLAB 11:21
PROVIDERS: PCP Internal Medicine; Visit Provider Specialist
DX: I48.21 Permanent atrial fibrillation (principal)
CPT/HCPCS: 36415; 85610

== ENCOUNTER 2024-03-22 11:26 | Outpatient (RCR) | payer MEDICARE, SELFPAY ==
[2024-02-24 16:36] LABS: INR 1.6; Prothrombin Time 19.2 Seconds (11.1-14.7)
[2024-03-22 12:29] LABS: INR 1.5; Prothrombin Time 18.8 Seconds (11.1-14.7)
== END 2024-05-24 23:59 | disposition home or self-care (01) ==
LOC: ANHLAB 11:26
PROVIDERS: PCP Internal Medicine; Visit Provider Specialist
DX: I48.21 Permanent atrial fibrillation (principal)
CPT/HCPCS: 36415; 85610

== ENCOUNTER 2024-04-26 12:29 | Outpatient (CLI) | payer MEDICARE, SELFPAY | END 2024-04-26 12:30 | disposition home or self-care (01) | PROVIDERS: Visit Provider Internal Medicine | DX: H90.3 Sensorineural hearing loss, bilateral (principal); H61.21 Impacted cerumen, right ear; Z86.73 Personal history of transient ischemic attack (TIA), and cerebral infarction without residual deficits | CPT/HCPCS: 92557; 92567 ==

== ENCOUNTER 2024-05-31 12:26 | Outpatient (CLI) | payer MEDICARE, SELFPAY ==
--- NOTE | ~2024-05-31 | MR_ITS ---
EXAMINATION: MR brain/brain stem wo/w con DATE: 05/31/2024 13:29 INDICATION: Cerebral infarction, unspecified. TECHNIQUE: Magnetic resonance imaging (MRI) of the brain and brainstem was performed without and with 14 mL MultiHance intravenous contrast. COMPARISON: None. FINDINGS: There are scattered areas of nonspecific increased T2-weighted signal intensity in the cere bral white matter. There are small old infarcts in the right cerebellum and left thalamus. There is a n old infarct involving the left basal ganglia and anterior limb left internal capsule. There are old blood products in left temporal lobe. There is no abnormal mass lesion. The ventricles are normal in size. The orbits are normal. There is mild mucosal thickening in the ethmoid sinuses. The mastoid ai r cells are normal. IMPRESSION: 1. 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 2. Moderate nonspecific cerebral white matter disease, which likely represents chronic small vessel i schemic disease. Reviewed, dictated and finalized at location A. ATTENDANT IMPRESSION: 1. 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 2. Moderate nonspecific cerebral white matter disease, which likely represents chronic small vessel ischemic disease.
--- NOTE | ~2024-05-31 | CT_ITS ---
CT Scan of the Chest without Contrast: Clinical Indication: Lung cancer screening, pulmonary nodule Technique: Contiguous sections were acquired throughout the chest without intravenous contrast. Dose reduction technique was used on this scan by utilizing automated exposure control and iterative recon struction technique. The dose-length product (DLP) was 82.78 mGy-cm. COMPARISON: 05/20/2023 Findings: There is no evidence of any significant mediastinal, hilar or axillary lymphadenopathy. Probable prio r ascending aortic repair/graft with coronary artery calcifications present. There is no evidence of pleural or pericardial effusion. Calcified right lower lobe granuloma present.. Mild emphysema. Images through the upper abdomen reveal no abnormalities. Impression: Lung RADS 2: Benign appearance. 12 month follow-up screening CT advised. Reviewed, dictated and finalized at [facility]. KLAYER SUPERVISOR Impression: Lung RADS 2: Benign appearance. 12 month follow-up screening CT advised.
== END 2024-05-31 12:27 | disposition home or self-care (01) ==
PROVIDERS: Visit Provider Internal Medicine
DX: Z12.2 Encounter for screening for malignant neoplasm of respiratory organs (principal); I63.9 Cerebral infarction, unspecified; R41.89 Other symptoms and signs involving cognitive functions and awareness; R91.1 Solitary pulmonary nodule; F17.210 Nicotine dependence, cigarettes, uncomplicated
CPT/HCPCS: 70553; 71271; A9577

== ENCOUNTER 2024-06-01 11:23 | Outpatient (CLI) | payer MEDICARE, SELFPAY ==
[2024-06-01 11:56] LABS: Basophils Absolute Auto 0.1 K/mm3 (0.0-0.1); Basophils Percent Auto 0.7 % (0.2-1.2); Eosinophils Absolute Auto 0.3 K/mm3 (0-0.3); Eosinophils Percent Auto 2.8 % (0-4.4); Hematocrit 45.2 % (42.0-52.0); Hemoglobin 14.5 g/dL (14.0-18.0); Immature Granulocyte Absolute 0.02 K/mm3 (0.00-0.031); Immature Granulocyte Percent A 0.2 % (0-0.5); Lymphocytes Absolute Auto 3.08 K/mm3 (0.9-3.2); Lymphocytes Percent Auto 30.7 % (18.3-44.2); Mean Corpuscular HGB Conc 32.1 g/dl (32-36); Mean Corpuscular Hemoglobin 33.3 pg (26-34); Mean Corpuscular Volume 103.9 fl (80-100); Mean Platelet Volume 10.6 fl (7.4-10.4); Monocytes Absolute Auto 0.7 K/mm3 (0.1-0.6); Monocytes Percent Auto 6.9 % (2.6-8.5); Neutrophils Absolute Auto 5.9 K/mm3 (1.3-6.7); Neutrophils Percent Auto 58.7 % (45.5-73.1); Platelet Count Result 141 k/mm3 (150-375); Red Blood Count 4.35 M/mm3 (4.6-6.20); Red Cell Distribution Width 12.6 % (11.5-14.5)
[2024-06-01 12:16] LABS: Alanine Aminotransferase 17 U/L (6-50); Albumin Level 4.1 g/dL (3.5-5.1); Alkaline Phosphatase 62 U/L (38-126); Anion Gap 5 mmol/L (4-12); Aspartate Amino Transferase 26 U/L (17-59); Bilirubin,Total 0.8 mg/dL (0.2-1.3); Blood Urea Nitrogen 20 mg/dL (9-20); Calcium 9.4 mg/dL (8.4-10.2); Carbon Dioxide 33 mmol/L (22-30); Chloride 103 mmol/L (98-107); Cholesterol 135 mg/dL (0-200); Estimated Glomerular Filt Rate > 60; Glucose 95 mg/dL (65-110); HDL Direct 78 mg/dL; Potassium 4.1 mmol/L (3.4-5.0); Sodium 141 mmol/L (137-145); Triglycerides 109 mg/dL (<150)
[2024-06-01 12:28] LABS: LDL Cholesterol Direct 35 mg/dL
[2024-06-01 12:33] LABS: Hemoglobin A1C 6.6 % (<5.7)
[2024-06-01 12:45] LABS: Prostate Specific Antigen 2.1 ng/mL (< OR = 4.0)
[2024-06-01 12:47] LABS: Free T4 Free Thyroxine 1.02 ng/mL (0.78-2.19); Vitamin D 25 Hydroxy 46.6 ng/mL
[2024-06-01 13:22] LABS: Folic Acid > 20.0 ng/mL (2.76->20)
== END 2024-06-01 11:24 | disposition home or self-care (01) ==
PROVIDERS: Visit Provider Internal Medicine
DX: E11.9 Type 2 diabetes mellitus without complications (principal); E55.9 Vitamin D deficiency, unspecified; E78.2 Mixed hyperlipidemia; I10 Essential (primary) hypertension; I25.10 Atherosclerotic heart disease of native coronary artery without angina pectoris; I48.91 Unspecified atrial fibrillation; Z00.00 Encounter for general adult medical examination without abnormal findings; Z79.4 Long term (current) use of insulin; Z79.899 Other long term (current) drug therapy; Z12.5 Encounter for screening for malignant neoplasm of prostate
CPT/HCPCS: 36415; 80053; 80061; 82306; 82607; 82746; 83036; 84153; 84439; 84443; 85025; G0103

== ENCOUNTER 2024-09-29 11:01 | Outpatient (CLI) | payer MEDICARE, SELFPAY ==
[2024-09-29 11:35] LABS: Basophils Absolute Auto 0.1 K/mm3 (0.0-0.1); Basophils Percent Auto 0.7 % (0.2-1.2); Eosinophils Absolute Auto 0.4 K/mm3 (0-0.3); Eosinophils Percent Auto 4.1 % (0-4.4); Hematocrit 44.6 % (42.0-52.0); Hemoglobin 14.5 g/dL (14.0-18.0); Immature Granulocyte Absolute 0.02 K/mm3 (0.00-0.031); Immature Granulocyte Percent A 0.2 % (0-0.5); Lymphocytes Absolute Auto 3.34 K/mm3 (0.9-3.2); Lymphocytes Percent Auto 35.8 % (18.3-44.2); Mean Corpuscular HGB Conc 32.5 g/dl (32-36); Mean Corpuscular Hemoglobin 33.4 pg (26-34); Mean Corpuscular Volume 102.8 fl (80-100); Mean Platelet Volume 10.4 fl (7.4-10.4); Monocytes Absolute Auto 0.6 K/mm3 (0.1-0.6); Monocytes Percent Auto 6.9 % (2.6-8.5); Neutrophils Absolute Auto 4.9 K/mm3 (1.3-6.7); Neutrophils Percent Auto 52.3 % (45.5-73.1); Platelet Count Result 135 k/mm3 (150-375); Red Blood Count 4.34 M/mm3 (4.6-6.20); Red Cell Distribution Width 13.1 % (11.5-14.5); White Blood Count 9.3 K/mm3 (4.5-10.0)
[2024-09-29 11:48] LABS: Alanine Aminotransferase 18 U/L (6-50); Alkaline Phosphatase 75 U/L (38-126); Anion Gap 6 mmol/L (4-12); Aspartate Amino Transferase 22 U/L (17-59); Bilirubin,Total 0.9 mg/dL (0.2-1.3); Blood Urea Nitrogen 9 mg/dL (9-20); Calcium 9.3 mg/dL (8.4-10.2); Carbon Dioxide 33 mmol/L (22-30); Chloride 101 mmol/L (98-107); Cholesterol 124 mg/dL (0-200); Estimated Glomerular Filt Rate > 60; Glucose 184 mg/dL (65-110); HDL Direct 75 mg/dL; Sodium 140 mmol/L (137-145); Triglycerides 81 mg/dL (<150)
[2024-09-29 12:19] LABS: LDL Cholesterol Direct < 30 mg/dL
--- OUTSIDE RECORDS SUMMARY | 2024-09-29 12:39 | XMS_ITS | Referral Summary ---
Author Organization [facility] Address [address] [place] [address] Care Team Providers Care Professor Of Biological Sciences Name Role Phone Dimitry Kamara MD Primary Care Provider [phone] Jesusita Han MD Unavailable [phone] Encounters Date Type Department Care Team Description 09/01/2024 1:45 PM PROFESSOR OF BIOLOGICAL SCIENCES Office Visit [facility] Medical [facility] Cardiology [address] [place] [phone] Chase iRvas MD H/O aortic valve replacement with tissue graft (Primary Dx); Permanent atrial fibrillation (HCC) 08/04/2024 Telephone [facility] Cardiology [address] [place] [phone] Chase Rivas MD 08/03/2024 Anticoagulation Telephone Call [facility] Cardiology [address] [facility] [address] [phone] Chase Rivas MD from Last 3 Months Allergies No known active allergies Medications insulin detemir (LEVEMIR) 100 unit/mL injection inject by subcutaneous route per prescriber's instructions. Insulin dosing requires individualizati on. 0 vial 0 10/31/19 15 Active Additional Information Patient taking differently: 15 Units subcutaneous 2 times daily, Reported on 09/01/2024 omega-3 fatty acids (FISH OIL CONCENTRATE) 1,000 mg capsule take 1 Capsule by Oral route 2 times every day 0 04/29/20 12 Active Additional Information Patient taking differently: 2,000 mg oral 2 times daily, Reported on 09/01/2024 dapagliflozin-m etformin 10-1,000 mg tablet, IR & ER, biphasic 24hr Take 1 tablet by mouth daily Active POTASSIUM CHLORIDE ER 10 mEq CR capsule Take 1 capsule by mouth daily. 01/17/20 18 Active metoprolol (LOPRESSOR) 25 mg tablet Take 1 tablet (25 mg total) by mouth daily Active aspirin 81 mg tablet Take 1 tablet (81 mg total) by mouth daily Active atorvastatin (LIPITOR) 20 mg tablet Take 1 tablet (20 mg total) by mouth daily Active cinnamon bark 500 mg capsule Take 1 capsule (500 mg total) by mouth daily Active folic acid (FOLVITE) 1 mg tablet Take 1 tablet (1 mg total) by mouth daily Active cyanocobalamin (Vitamin B-12) 100 mcg tabletIndicatio ns:Prevention of Vitamin B12 Deficiency Take 1 tablet (100 mcg total) by mouth daily Active cholecalciferol (VITAMIN D-3) 06063 unit capsule Take 1 capsule (10,000 Units total) by mouth daily Active OneTouch Ultra Blue Test Strip strip 12/06/19 21 Active nystatin cream 11/03/19 21 Active triamcinolone (KENALOG) 0.1 % cream 11/07/19 21 Active metFORMIN (GLUCOPHAGE) 1,000 mg tablet Take 1 tablet (1,000 mg total) by mouth daily 11/11/19 23 Active Farxiga 5 mg tablet 04/10/20 24 Active niacin ER (NIASPAN) 500 mg CR tabletIndicatio ns:Dyslipidemia Take 1 tablet (500 mg total) by mouth nightly 90 tablet 3 04/14/20 24 Active lisinopriL (PRINIVIL,ZESTR IL) 20 mg tabletIndicatio ns:Essential hypertension Take 1 tablet (20 mg total) by mouth daily 90 tablet 3 04/14/20 24 Active furosemide (LASIX) 20 mg tabletIndicatio ns:Essential hypertension Take 0.5 tablets (10 mg total) by mouth daily 90 tablet 3 04/14/20 24 Active apixaban (ELIQUIS) 5 mg tabletIndicatio ns:Permanent atrial fibrillation (HCC) Take 1 tablet (5 mg total) by mouth 2 (two) times a day 180 tablet 3 04/14/20 24 Active donepeziL (ARICEPT) 10 mg tablet Take 1 tablet (10 mg total) by mouth nightly Active digoxin (LANOXIN) 125 mcg (0.125 mg) tablet Take 1 tablet (125 mcg total) by mouth daily 04/10/20 24 2024 Discontinued Active Problems Problem Noted Date Diagnosed Date Non-rheumatic mitral regurgitation 02/10/2020 Assessment & Plan (02/07/2021 2:15 PM CDT): Moderate when last assessed. Not heard on exam today. Will reassess with echo in one year. Assessment & Plan (02/10/2020 5:49 PM CDT): Mitral insufficiency is moderate. Left ventricular contractility is normal. He does have mild pulmonary hypertension, but also has COPD. Mitral insufficiency does not appear to be causing a problem at this time. He would be a high-risk candidate for mitral valve surgery if mitral insufficiency worsens. H/O aortic valve replacement with tissue graft 0 02/19/2018 Assessment & Plan (02/07/2021 2:15 PM CDT): Mild /AI by echo last year. Exam has not changed and he has no symptoms referable to this. Will obtain echo Doppler in one year. Assessment & Plan (02/10/2020 5:46 PM CDT): Aortic valve continues to hold up well, with today's echo showing mild /AI. Assessment & Plan (02/03/2019 12:29 PM CDT): By exam, valve is functioning well. Will obtain an echo with his office visit next year. Assessment & Plan (02/19/2018 5:43 PM CDT): Aortic valve continues to function well for echocardiogram done One year ago and by exam. Permanent atrial fibrillation 02/19/2018 Assessment & Plan (02/07/2021 2:15 PM CDT): Rate controlled and anticoagulated. Assessment & Plan (02/10/2020 5:46 PM CDT): Rate controlled and anticoagulated. Assessment & Plan (02/03/2019 12:28 PM CDT): Rate controlled and anticoagulated. No change in management. Assessment & Plan (02/19/2018 5:44 PM CDT): Rate controlled and anticoagulated Essential hypertension 02/19/2018 Assessment & Plan (02/07/2021 2:15 PM CDT): Blood pressure is adequately controlled on current regimen. No change was made. Assessment & Plan (02/10/2020 5:46 PM CDT): Blood pressure is adequately controlled on current regimen. No change was made. Assessment & Plan (02/03/2019 12:29 PM CDT): Blood pressure is adequately controlled on current regimen. No change was made. Assessment & Plan (02/19/2018 5:44 PM CDT): Blood pressure is adequately controlled on current regimen. No change was made. Hyperlipidemia 02/19/2018 Assessment & Plan (02/07/2021 2:16 PM CDT): On chronic lipid lowering therapy with good control. No changes made. Assessment & Plan (02/10/2020 5:47 PM CDT): On lipid-lowering therapy. This is monitored through his PCP. Assessment & Plan (02/03/2019 12:29 PM CDT): On chronic lipid lowering therapy with good control. No changes made. Assessment & Plan (02/19/2018 5:44 PM CDT): On chronic lipid-lowering therapy with good control Social History Tobacco Use Types Packs/Day Years Used Date Smoking Tobacco: Every Day Smokeless Tobacco: Never Tobacco Cessation:Ready to Q uit: Not Asked; Counseling Given: Not Answered Comments:Smoking History Packs/day: 1 Packs Alcohol Use Standard Drinks/Week Comments No 0 (1 standard drink = 0.6 oz pur e alcohol) Sex and Gender Information Value Date Recorded Sex Assigned at Not on file Legal Sex Male 7:14 PM PROFESSOR OF BIOLOGICAL SCIENCES Gender Identity Not on file Sexual Orientation Not on file Last Filed Vital Signs Vital Sign Reading Time Taken Comments Blood Pressure 102/58 09/01/2024 2:37 PM PROFESSOR OF BIOLOGICAL SCIENCES Pulse 55 09/01/2024 2:37 PM PROFESSOR OF BIOLOGICAL SCIENCES Temperature - - Respiratory Rate - - Oxygen Saturation 91% 09/01/2024 2:37 PM PROFESSOR OF BIOLOGICAL SCIENCES Inhaled Oxygen Concentration - - Weight 67.1 kg (148 lb) 09/01/2024 2:37 PM PROFESSOR OF BIOLOGICAL SCIENCES Height 172.7 cm (5' 8 ) 09/01/2024 2:37 PM PROFESSOR OF BIOLOGICAL SCIENCES Body Mass Index 22.5 09/01/2024 2:37 PM PROFESSOR OF BIOLOGICAL SCIENCES Plan of Treatment Not on file Insurance [employer] Member Subscriber Plan / Payer (Ef fective 2022-Present) Name:Moisés Yip Relation to Subscriber:Self Name:Moisés Yip Payer ID:[id number] (NAIC) Type:[facility] MEDIC[facility] Address: [place] [phone] MED[employer] Care Teams Professor Of Biological Sciences Relationship Specialty Start Date End Date Dimitry Kamara MD [address] [facility] [address] [place] [address] PCP - General 10/24/16 Jesusita Hna MD [address] [facility] [address] [place] [address] Ash Handler Cardiology 10/16/20
--- OUTSIDE RECORDS SUMMARY | 2024-09-29 12:39 | XMS_ITS | Encounter Summary ---
Author Organization [facility] Healthcare Address [address] [place] [address] Care Team Providers Care Technical Consultant Name Role Phone Dimitry Kamara MD Primary Care Provider [phone] Jesusita Han MD Unavailable [phone] Encounter Details Date Type Department Care Team (Late st Contact Info) Description 10/23/2023 Orders Only [facility] Information Management [address] [place] [phone] Scanning, Provider Social History Tobacco Use Types Packs/Day Years Used Date Smoking Tobacco: Every Day Smokeless Tobacco: Never Comments:Smoking History Pac ks/day: 1 Packs Alcohol Use Standard Drinks/Week Comments No 0 (1 standard drink = 0.6 oz pur e alcohol) Sex and Gender Information Value Date Recorded Sex Assigned at Not on file Legal Sex Male 7:14 PM CHECKER IN Gender Identity Not on file Sexual Orientation Not on file documented as of this encounter Plan of Treatment Not on file documented as of this encounter Procedures Procedure Name Priority Date/Time Associated Diagnosis Comments SCAN - LABS 10/23/2023 documented in this encounter Results * SCAN - LABS (10/23/2023) us Provider Scanning Final Result documented in this encounter Visit Diagnoses Not on filedocumented in this encounter Care Teams Technical Consultant Relationship Specialty Start Date End Date Dimitry Kamara MD [address] [place] [address] PCP - General 10/24/16 Jesusita Han MD [address] [facility] [address] [place] [address] Blanchard Grinder Operator 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
--- OUTSIDE RECORDS SUMMARY | 2024-09-29 12:39 | XMS_ITS | Clinical Summary ---
Author Organization [facility] Address [address] [place] [address] Care Team Providers Care Powersaw Supervisor Name Role Phone Dimitry Kamara MD Primary Care Provider [phone] Jesusita Han MD Unavailable [phone] Allergies No known active allergies Medications insulin [...] by mouth daily Active cholecalciferol (VITAMIN D-3) 44891 unit capsule Take 1 capsule (10,000 Units total) by mouth daily Active OneTouch Ultra Blue Test Strip strip 12/06/19 Active nystatin cream 11/03/19 21 Active triamcinolone [...] On chronic lipid-lowering therapy with good control Encounters Date Type Department Care Team Description 09/01/2024 1:45 PM COOKER PROCESS CHEESE Office Visit [facility] Medical [facility] Cardiology [address] [facility] [address] [place] [phone] Chase Rivas MD H/O aortic valve replacement with tissue graft (Primary Dx); Permanent atrial fibrillation (HCC) 08/04/2024 Telephone [facility] Cardiology [address] [place] [address] Chase Rivas MD 08/03/2024 Anticoagulation Telephone Call [facility] Cardiology [address] [facility] [address] [place] [address] Chase Rivas MD from Last 3 Months Surgical History Surgery Date Site/Laterality Comments 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 x 2 Medical History Medical History Date Comments Hypertension Hypertension Diabetes mellitus (HCC) Diabetes mellitus Family History Medical History Relation Name Comments Other Brother 2 heart disease ; Coronary artery disease Mother William nary Artery Disease; Relation Name Status Comments Brother 1 Alive Brother 2 Mother Alive Social History Tobacco Use Types Packs/Day Years [...] on file Legal Sex Male 7:14 PM COOKER PROCESS CHEESE Gender Identity Not on file Sexual Orientation Not on file Obstetrics History Last Filed Vital Signs Vital Sign Reading Time Taken Comments Blood Pressure 102/58 09/01/2024 2:37 PM COOKER PROCESS CHEESE Pulse 55 09/01/2024 2:37 PM COOKER PROCESS CHEESE Temperature - - Respiratory Rate - - Oxygen Saturation 91% 09/01/2024 2:37 PM COOKER PROCESS CHEESE Inhaled Oxygen Concentration - - Weight 67.1 kg (148 lb) 09/01/2024 2:37 PM COOKER PROCESS CHEESE Height 172.7 cm (5' 8 ) 09/01/2024 2:37 PM COOKER PROCESS CHEESE Body Mass Index 22.5 09/01/2024 2:37 PM COOKER PROCESS CHEESE Plan of Treatment Health Maintenance Due Date Last Done Comments Depression Screening 1945 Fall Risk Assessment 1945 Hepatitis C Screening 1945 DTaP/Tdap/Td Vaccine (1 - Tdap) 1956 Hepatitis B Screening 10/12/1963 Zoster Vaccine (1 of 2) 10/12/1995 Abdominal Aortic Aneurysm (A AA) Screen 2010 Well Visit 65+ 2010 Pneumococcal vaccine 65+ (2 of 2 - PPSV23) 06/26/2017 05/01/2017 Influenza Vaccine (#1) 2024 9, 05/01/2017, 06/27/2015, Additional history exists Insurance [facility] Address: [facility] [address] [place] [address] [facility] [facility] Address: [place] [id number] [place] [address] Care Teams Powersaw Supervisor Relationship Specialty Start Date End Date Dimitry Kamara MD [address] [place] [address] PCP - General 10/24/16 Jesusita Han MD [address] [place] [address] Director Of Acquisition Marketing Cardiology 10/16/20
--- OUTSIDE RECORDS SUMMARY | 2024-09-29 12:39 | XMS_ITS | Referral Summary ---
Author Organization [facility] Address [address] [place] [address] Care Team Providers Care Cylinder Worker Name Role Phone Dimitry Kamara MD Primary Care Provider [phone] Source Comments [facility],non-owned Affiliates and Associated Physician Practices is amultiple site organization consisting of ambulatory clinics and hospital sitesin [place], [place], [place] and [place]. This disclosure is being madepursuant to the Care Everywhere program and may not contain all information available regarding this patient. Last updated 18.[facility] Allergies No known active allergies Medications * Be aware that medications may not be up to date on this document. Alwaysverify current medications with the patient. Medication Sig Dispensed Refills Start Date End Date Status warfarin (Coumadin) 1 MG tablet Take 3.5 (three and one-half) tablets by mouth SEE ADMIN INSTRUCTIONS Take warfarin 3.5 mg on Thursday, Thursday, Thursday, Thursday, and Thursday Active warfarin (Coumadin) 1 MG tablet Take 4.5 (four and one-half) tablets by mouth every Thursday & Take warfarin 4.5 mg on Thursday and Activ e digoxin (Lanoxin) 0.25 MG tablet Take 1 (one) tablet by mouth once daily Active furosemide (Lasix) 20 MG tablet Take 0.5 (one-half) tablet by mouth once daily Active lisinopril (Prinivil; Zestril) 10 MG tablet Take 1 (one) tablet by mouth once daily Active potassium chloride ER (Klor-Con M) 10 MEQ tablet Take 1 (one) tablet by mouth once daily Active atorvastatin (Lipitor) 20 MG tablet Take 1 (one) tablet by mouth at bedtime Active aspirin EC (Ecotrin) 81 MG tablet Take 1 (one) tablet by mouth once daily Active metoprolol tartrate IR (Lopressor) 25 MG tablet Take 1 (one) tablet by mouth 2 times daily Active niacin CR (Niaspan) 500 MG tablet Take 1 (one) tablet by mouth at bedtime Active Cinnamon 500 MG Take 1 (one) tablet by mouth at bedtime Active Clark-3 Fatty Acids (fish oil) 500 MG capsule Take 2,000 (two thousand) mg by mouth 2 times daily Active insulin detemir (Levemir) pen Inject 15 (fifteen) Units subcutaneously 2 times daily Active empaglifozin-metFO RMIN ER 24hr (Synjardy XR) 10-1000 MG tablet Take 1 (one) tablet by mouth at bedtime Active folic acid (Folvite) 1 MG tablet Take 1 (one) tablet by mouth at bedtime Active Active Problems Problem Noted Date Diagnosed Date Hypoglycemia 03/28/2024 Type 2 diabetes mellitus 03/28/2024 Cerebrovascular accident (CVA), unspecified mech anism 03/25/2024 Tobacco abuse 03/25/2024 Primary hypertension 03/25/2024 HLD (hyperlipidemia) 03/25/2024 Anorexia 03/25/2024 Valvular heart disease 03/25/2024 Social History Tobacco Use Types Packs/Day Years Used Date Smoking Tobacco: Every Day Cigarettes Smokeless Tobacco: Never Tobacco Cessation:Ready to Q uit: No; Counseling Given: Yes Alcohol Use Standard Drinks/Week Comments Never 0 (1 standard drink = 0.6 oz pur e alcohol) AUDIT-C Answer Date Recorded Q1: How often do you have a drink containing alcohol? Never 03/25/2024 Q2: How many drinks containi ng alcohol do you have on a typical day when you are drinking? Patient does not drink Q3: How often do you have si x or more drinks on one occasion? Never 03/25/2024 Overall Financial Resource Strain (CARDIA) Answe r Date Recorded How hard is it for you to pa y for the very basics like food, housing, medical care, and heating? Not hard at all 03/25/2024 PHQ-2 Answer Date Recorded Patient Health Questionnaire-2 Score 0 03/31/2024 [place] [facility] [employer] - Occupational Stress Questionnaire Answer Date Recorded Do you feel stress - tense, restless, nervous, or anxious, or unable to sleep at night because your mind is troubled all the time - these days? Not at all 03/25/2024 Hunger Vital Sign Answer Date Recorded Within the past 12 months, y ou worried that your food would run out before you got the money to buy more. Never true 03/25/20 24 Within the past 12 months, t he food you bought just didn't last and you didn't have money to get more. Never true 03/25/2024 PRAPARE - Transportation Answer Date Re corded In the past 12 months, has l ack of transportation kept you from medical appointments or from getting medications? No 02/26 In the past 12 months, has l ack of transportation kept you from meetings, work, or from getting things needed for daily living? No 03/25/2024 Housing Stability Vital Sign Answer Miles e Recorded In the last 12 months, was t here a time when you were not able to pay the mortgage or rent on time? No 03/25/2024 In the last 12 months, how many places have you lived? 1 03/25/2024 In the last 12 months, was t here a time when you did not have a steady place to sleep or slept in a long-term (including now)? No 03/25/2024 Sex and Gender Information Value Date Recorded Sex Assigned at Not on file Gender Identity Not on file Sexual Orientation Not on file Last Filed Vital Signs Vital Sign Reading Time Taken Comments Blood Pressure 141/42 04/01/2024 8:08 AM CDT Pulse 64 04/01/2024 8:08 AM CDT Temperature 36.5 C (97.7 F) 03/31/2024 8:23 PM CDT Respiratory Rate 18 03/31/2024 4:42 PM CDT Oxygen Saturation 98% 03/31/2024 8:23 PM CDT Inhaled Oxygen Concentration - - Weight 69.3 kg (152 lb 11.2 oz) 04/01/2024 4:00 AM CDT Height 182.9 cm (6') 03/30/2024 8:28 AM CDT Body Mass Index 20.71 03/30/2024 8:28 AM CDT Functional Status Functional Status Response Date of Assess ment Is person deaf or have serious hearing difficult y? No 03/29/2024 Is person blind or have serious difficulty seein g? No 03/29/2024 Does person have serious dif ficulty walking/climbing stairs? No 03/29/2024 Does person have difficulty dressing/bathing? No 03/29/2024 Does person have difficulty doing errands alone? Yes 03/29/2024 Cognitive Status Response Date of Assessm ent Does person have difficulty concentrating/remembering/making decisions? Yes 03/29/2024 Plan of Treatment Not on file Procedures Procedure Name Priority Date/Time Associated Diagnosis Comments COMPREHENSIVE METABOLIC PANEL Routine 04/01/2024 3:04 AM CDT HEMOGLOBIN A1C Routine 03/30/2024 7:56 AM CDT from Last 3 Months or Most Recently Relevant to Health Maintenance Results * (ABNORMAL) COMPREHENSIVE METABOLIC PANEL (04/01/2024 3:04 AM CDT) BUN 14 7 - 26 mg/dL 04/01/2024 4:07 AM [facility] Creatinine 0.69(L) 0.71 - 1.16 mg/dL 04/01/2024 4:07 AM [facility] Sodium 139 136 - 145 mmol/L 04/01/2024 4:07 AM [facility] Potassium 3.7 3.5 - 4.5 mmol/L 04/01/2024 4:07 AM [facility] Chloride 110(H) 98 - 107 mmol/L 04/01/2024 4:07 AM [facility] CO2 25 22 - 29 mmol/L 04/01/2024 4:07 AM [facility] Glucose 137(H) 70 - 115 mg/dL 04/01/2024 4:07 AM [facility] Calcium 8.6 8.4 - 10.2 mg/dL 04/01/2024 4:07 AM [facility] Protein Total 5.6(L) 6.0 - 8.3 g/dL 04/01/2024 4:07 AM [facility] Albumin 2.8(L) 3.4 - 5.0 g/dL 04/01/2024 4:07 AM [facility] Bilirubin Total 1.3(H) 0.2 - 1.2 mg/dL 04/01/2024 4:07 AM [facility] Alkaline Phosphatase 66 40 - 150 U/L 04/01/2024 4:07 AM [facility] ALT 28 5 - 55 U/L 04/01/2024 4:07 AM [facility] AST 23 5 - 34 U/L 04/01/2024 4:07 AM [facility] Anion Gap 4(L) 6 - 16 04/01/2024 4:07 AM [facility] BUN/Creatinine Ratio 20 7 - 23 04/01/2024 4:07 AM [facility] Osmolality Calculated 291 275 - 295 mOsm/kg 04/01/2024 4:07 AM [facility] Albumin/Globulin Ratio 1.0(L) 1.1 - 2.3 04/01/2024 4:07 AM [facility] eGFR by CKD-EPI >90 >=90 mL/min/1.7 3 m2 04/01/2024 4:07 AM [facility] Blood BLOOD SPECIMEN / Unknown Lab Venipuncture / Unknown 04/01/2024 3:04 AM CDT 04/01/2024 3:37 AM [facility] Malachi Wayne MD LAB - CHEMISTRY GOLDY GIBSON [facility] Organization Address [facility] Co de Phone Number [address] [phone] [phone] * HEMOGLOBIN A1C (03/30/2024 7:56 AM [facility]) Hemoglobin A1c 5.6 <=5.6 % 03/30/2024 9:41 AM [facility] Estimated Average Glucose 114 mg/dL 03/30/2024 9:41 AM [facility] Comment: HbA1c Interpretation: Normal : < 5.7% Pre-diabetes: 5.7-6.4% Diabetes: Equal to or greater than 6.5% Test results diagnostic of diabetes should be repeated for confirmation. Treatment target values recommended by ADA and other clinical organizations should be used to evaluate metabolic control in patients. Reference: [place] [employer], Standards of Care in Diabetes -2020 In patients 70 years and older consider HbA1c target range of 7.0-7.5% (Reference: Jamal Mo et al. JAMDA. 2012) The Sebia assay for the measurement of HbA1c is a National Glycohemoglobin Standardization Program (NGSP) certified method. Blood BLOOD SPECIMEN / Unknown Lab Venipuncture / Unknown 03/30/2024 7:56 AM CDT 03/30/2024 8:27 AM CDT Malachi Wayne MD LAB - CHEMISTRY GOLDY GISBON [facility] Organization Address City/State/[facility] Co de Phone Number [facility] [address] [place] [address], [facility] [phone] from Last 3 Months or Most Recently Relevant to Health Maintenance Advance Directives * Full Code (Latest Code Status on File) Date Activated Date Inactivated Comments 03/25/2024 8:09 PM 04/01/2024 1:28 PM Care Teams Cylinder Worker Relationship Specialty Start Date End Date Dimitry Kamara MD [address] [place] [phone] PCP - General Internal Medicine 04/13/24
--- OUTSIDE RECORDS SUMMARY | 2024-09-29 12:39 | XMS_ITS | Patient Health Summary ---
Author Organization [facility] Address [address] [place] [address] Care Team Providers Care Ophthalmic Surgical Assistant Name Role Phone Dimitry Kamara MD Primary Care Provider [phone] [facility] from [facility],non-owned Affiliates and Associated Physician Practices is amultiple site organization consisting of ambulatory clinics and hospital sitesin [place], [place], [place] and [place]. This disclosure is being madepursuant to the Care Everywhere program and may not contain all information available regarding this patient. Last updated 18.[facility] Allergies No known active allergies Medications * Be aware that medications may not be up to date on this document. Alwaysverify current medications with the patient. * warfarin (Coumadin) 1 MG tablet Take 3.5 (three and one-half) tablets by mouth SEE ADMIN INSTRUCTIONS Take warfarin 3.5 mg on Thursday, Thursday, Thursday, Thursday, and Thursday * warfarin (Coumadin) 1 MG tablet Take 4.5 (four and one-half) tablets by mouth every Thursday & Take warfarin 4.5 mg on Thursday and * digoxin (Lanoxin) 0.25 MG tablet Take 1 (one) tablet by mouth once daily * furosemide (Lasix) 20 MG tablet Take 0.5 (one-half) tablet by mouth once daily * lisinopril (Prinivil; Zestril) 10 MG tablet Take 1 (one) tablet by mouth once daily * potassium chloride ER (Klor-Con M) 10 MEQ tablet Take 1 (one) tablet by mouth once daily * atorvastatin (Lipitor) 20 MG tablet Take 1 (one) tablet by mouth at bedtime * aspirin EC (Ecotrin) 81 MG tablet Take 1 (one) tablet by mouth once daily * metoprolol tartrate IR (Lopressor) 25 MG tablet Take 1 (one) tablet by mouth 2 times daily * niacin CR (Niaspan) 500 MG tablet Take 1 (one) tablet by mouth at bedtime * Cinnamon 500 MG Take 1 (one) tablet by mouth at bedtime * [place]-3 Fatty Acids (fish oil) 500 MG capsule Take 2,000 (two thousand) mg by mouth 2 times daily * insulin detemir (Levemir) pen Inject 15 (fifteen) Units subcutaneously 2 times daily * empaglifozin-metFORMIN ER 24hr (Synjardy XR) 10-1000 MG tablet Take 1 (one) tablet by mouth at bedtime * folic acid (Folvite) 1 MG tablet Take 1 (one) tablet by mouth at bedtime Active Problems Problem Noted Date Diagnosed Date [...] Recorded Patient Health Questionnaire-2 Score 0 03/31/2024 [facility] - Occupational Stress [...] place to sleep or slept in a residential (including now)? No 03/25/2024 Sex and Gender [...] Mass Index 20.71 03/30/2024 8:28 AM CDT Procedures * CARDIAC EKG ORDER(Performed 04/04/2024) * GLUCOSE - POINT OF CARE(Performed 04/01/2024) * GLUCOSE - POINT OF CARE(Performed 04/01/2024) * GLUCOSE - POINT OF CARE(Performed 04/01/2024) * PT-INR [facility](Performed 04/01/2024) * CBC W AUTO DIFFERENTIAL(Performed 04/01/2024) * COMPREHENSIVE METABOLIC PANEL(Performed 04/01/2024) * MAGNESIUM BLOOD(Performed 04/01/2024) * PHOSPHORUS BLOOD(Performed 04/01/2024) * GLUCOSE - POINT OF CARE(Performed 03/31/2024) * GLUCOSE - POINT OF CARE(Performed 03/31/2024) * GLUCOSE - POINT OF CARE(Performed 03/31/2024) * GLUCOSE - POINT OF CARE(Performed 03/31/2024) * GLUCOSE - POINT OF CARE(Performed 03/31/2024) * PT-INR [facility](Performed 03/31/2024) * COMPREHENSIVE METABOLIC PANEL(Performed 03/31/2024) * MAGNESIUM BLOOD(Performed 03/31/2024) * PHOSPHORUS BLOOD(Performed 03/31/2024) * CBC W AUTO DIFFERENTIAL(Performed 03/31/2024) * GLUCOSE - POINT OF CARE(Performed 03/30/2024) * GLUCOSE - POINT OF CARE(Performed 03/30/2024) * GLUCOSE - POINT OF CARE(Performed 03/30/2024) * ECHO COMPLETE W CONTRAST W BUBBLE STUDY(Performed 03/30/2024) Performed for Cerebrovascular accident (CVA), unspecified mechanism (HCC) * GLUCOSE - POINT OF CARE(Performed 03/30/2024) * HEMOGLOBIN A1C(Performed 03/30/2024) * PT-INR [facility](Performed 03/30/2024) * CBC W AUTO DIFFERENTIAL(Performed 03/30/2024) * COMPREHENSIVE METABOLIC PANEL(Performed 03/30/2024) * MAGNESIUM BLOOD(Performed 03/30/2024) * PHOSPHORUS BLOOD(Performed 03/30/2024) * GLUCOSE - POINT OF CARE(Performed 03/30/2024) * GLUCOSE - POINT OF CARE(Performed 03/30/2024) * GLUCOSE - POINT OF CARE(Performed 03/29/2024) * GLUCOSE - POINT OF CARE(Performed 03/29/2024) * GLUCOSE - POINT OF CARE(Performed 03/29/2024) * GLUCOSE - POINT OF CARE(Performed 03/29/2024) * GLUCOSE - POINT OF CARE(Performed 03/29/2024) * PT-INR [facility](Performed 03/29/2024) * CBC W AUTO DIFFERENTIAL(Performed 03/29/2024) * COMPREHENSIVE METABOLIC PANEL(Performed 03/29/2024) * MAGNESIUM BLOOD(Performed 03/29/2024) * PHOSPHORUS BLOOD(Performed 03/29/2024) * GLUCOSE - POINT OF CARE(Performed 03/29/2024) * GLUCOSE - POINT OF CARE(Performed 03/29/2024) * GLUCOSE - POINT OF CARE(Performed 03/28/2024) * GLUCOSE - POINT OF CARE(Performed 03/28/2024) * GLUCOSE - POINT OF CARE(Performed 03/28/2024) * GLUCOSE(Performed 03/28/2024) * GLUCOSE - POINT OF CARE(Performed 03/28/2024) * GLUCOSE - POINT OF CARE(Performed 03/28/2024) * GLUCOSE - POINT OF CARE(Performed 03/28/2024) * PT-INR SL[facility](Performed 03/28/2024) * CBC W AUTO DIFFERENTIAL(Performed 03/28/2024) * COMPREHENSIVE METABOLIC PANEL(Performed 03/28/2024) * MAGNESIUM BLOOD(Performed 03/28/2024) * PHOSPHORUS BLOOD(Performed 03/28/2024) * GLUCOSE - POINT OF CARE(Performed 03/27/2024) * GLUCOSE - POINT OF CARE(Performed 03/27/2024) * DIGOXIN LEVEL(Performed 03/27/2024) * PT-INR [facility](Performed 03/27/2024) * GLUCOSE - POINT OF CARE(Performed 03/27/2024) * GLUCOSE - POINT OF CARE(Performed 03/27/2024) * CBC W AUTO DIFFERENTIAL(Performed 03/27/2024) * COMPREHENSIVE METABOLIC PANEL(Performed 03/27/2024) * MAGNESIUM BLOOD(Performed 03/27/2024) * PHOSPHORUS BLOOD(Performed 03/27/2024) * GLUCOSE - POINT OF CARE(Performed 03/27/2024) * CT HEAD WO CONTRAST(Performed 03/26/2024) Performed for Cerebrovascular accident (CVA), unspecified mechanism (HCC) * GLUCOSE - POINT OF CARE(Performed 03/26/2024) * MRI BRAIN WO CONTRAST(Performed 03/26/2024) Performed for Cerebrovascular accident (CVA), unspecified mechanism (HCC) * GLUCOSE - POINT OF CARE(Performed 03/26/2024) * XR CHEST 1VW PORTABLE(Performed 03/26/2024) Performed for Cerebrovascular accident (CVA), unspecified mechanism (HCC) * PT-INR [facility](Performed 03/26/2024) * TROPONIN-I HIGH SENSITIVE REFLEX 1HOUR(Performed 03/26/2024) * GLUCOSE - POINT OF CARE(Performed 03/26/2024) * GLUCOSE - POINT OF CARE(Performed 03/26/2024) * GLUCOSE - POINT OF CARE(Performed 03/26/2024) * GLUCOSE - POINT OF CARE(Performed 03/26/2024) * PHOSPHORUS BLOOD(Performed 03/26/2024) * MAGNESIUM BLOOD(Performed 03/26/2024) * LIPID PROFILE(Performed 03/26/2024) * TROPONIN-I HIGH SENSITIVE BASELINE + 1HR(Performed 03/26/2024) * GLUCOSE - POINT OF CARE(Performed 03/26/2024) * GLUCOSE - POINT OF CARE(Performed 03/26/2024) * GLUCOSE - POINT OF CARE(Performed 03/25/2024) * CBC W AUTO DIFFERENTIAL(Performed 03/25/2024) * COMPREHENSIVE METABOLIC PANEL(Performed 03/25/2024) * BLOOD TYPE VERIFICATION(Performed 03/25/2024) * COMPREHENSIVE METABOLIC PANEL(Performed 03/25/2024) * TROPONIN-I HIGH SENSITIVE REFLEX 1HOUR(Performed 03/25/2024) * EKG 12-LEAD(Performed 03/25/2024) Performed for Cerebrovascular accident (CVA), unspecified mechanism (HCC) * CT ANGIO BRAIN NECK STROKE(Performed 03/25/2024) Performed for Cerebrovascular accident (CVA), unspecified mechanism (HCC) * TYPE + SCREEN PANEL(Performed 03/25/2024) * TROPONIN-I HIGH SENSITIVE BASELINE + 1HR(Performed 03/25/2024) * PT-INR [facility](Performed 03/25/2024) * COMPREHENSIVE METABOLIC PANEL(Performed 03/25/2024) * CBC W AUTO DIFFERENTIAL(Performed 03/25/2024) * CT BRAIN STROKE(Performed 03/25/2024) Performed for Cerebrovascular accident (CVA), unspecified mechanism (HCC) * CREATININE - POCT INTERFACED(Performed 03/25/2024) * INR WHOLE BLOOD - POINT OF CARE (IP) STROKE(Performed 03/25/2024) Results * CARDIAC EKG ORDER (04/04/2024 1:56 PM CDT) Narrative 04/04/2024 1:56 PM CDT Ordered by an unspecified provider. Scanned Document CARDIAC SERVICES ORD ERABLES * (ABNORMAL) GLUCOSE - POINT OF CARE (04/01/2024 11:03 AM CDT) Only the most recent of41 resultswithin the time period is included. Glucose WB/POC 164(H) 70 - 115 mg/dL 04/01/2024 11:04 AM T [facility] Specimen Type Cap Fingerstick 2023 11:04 AM CDT [facility] Blood BLOOD SPECIMEN / Unknown 04/01/2024 11:03 AM CDT 04/01/2024 11:04 AM CDT Malachi Wayne MD LAB - POINT OF CARE ORDERABLES [address] [address], [facility] [phone] * (ABNORMAL) PT-INR [facility] (04/01/2024 3:04 AM CDT) Only the most recent of8 resultswithin the time period is included. PT 25.4(H) 12.1 - 14.8 Seconds 04/01/2024 4:04 AM T [facility] INR 2.4 See Comment 04/01/2024 4:04 AM T [facility] Comment:The suggested therap eutic range for standard coumadin (warfarin) therapy is an INR of 2.0-3.0. For high-risk patients (Mechanical Mitral Valve Prosthesis, etc.), the suggested prophylactic therapeutic range is an INR of 2.5-3.5. Blood BLOOD SPECIMEN / Unknown Lab Venipuncture / Unknown 04/01/2024 3:04 AM CDT 04/01/2024 3:37 AM CDT Malachi Wayne MD LAB - COAGULATION OR DERABLES [facility] [address] [place] [address], [facility] [phone] * (ABNORMAL) CBC W AUTO DIFFERENTIAL (04/01/2024 3:04 AM CDT) Only the most recent of8 resultswithin the time period is included. WBC 8.5 4.0 - 10.7 x10E9/L 04/01/2024 3:43 AM [facility] RBC Count 3.21(L) 4.30 - 5.80 x10E12/L 04/01/2024 3:43 AM [facility] Hemoglobin 10.8(L) 13.3 - 17.5 g/dL 04/01/2024 3:43 AM [facility] Hematocrit 32.6(L) 38.7 - 51.1 % 04/01/2024 3:43 AM [facility] MCV 101.6(H) 80.0 - 98.0 fL 04/01/2024 3:43 AM [facility] MCH 33.6 26.7 - 33.6 pg 04/01/2024 3:43 AM [facility] MCHC 33.1 31.7 - 36.3 g/dL 04/01/2024 3:43 AM [facility] RDW-CV 13.3 11.3 - 14.8 % 04/01/2024 3:43 AM [facility] Platelet Count 141(L) 150 - 420 x10E9/L 04/01/2024 3:43 AM [facility] MPV 10.8 7.8 - 11.4 fL 04/01/2024 3:43 AM [facility] Neutrophil % 62.8 41.0 - 74.0 % 04/01/2024 3:43 AM [facility] Lymphocyte % 20.9 17.0 - 47.0 % 04/01/2024 3:43 AM [facility] Monocyte % 11.0 3.0 - 11.0 % 04/01/2024 3:43 AM [facility] Eosinophil % 4.6 0.0 - 7.0 % 04/01/2024 3:43 AM [facility] Basophil % 0.5 0.0 - 1.6 % 04/01/2024 3:43 AM [facility] Immature Granulocytes % 0.2 0.0 - 1.0 % 04/01/2024 3:43 AM [facility] Neutrophil Absolute 5.32 1.60 - 7.50 x10E9/L 04/01/2024 3:43 AM [facility] Lymphocyte Absolute 1.77 1.00 - 4.40 x10E9/L 04/01/2024 3:43 AM [facility] Monocyte Absolute 0.93 0.15 - 1.00 x10E9/L 04/01/2024 3:43 AM [facility] Eosinophil Absolute 0.39 0.00 - 0.60 x10E9/L 04/01/2024 3:43 AM [facility] Basophil Absolute 0.04 0.00 - 0.13 x10E9/L 04/01/2024 3:43 AM [facility] Blood BLOOD SPECIMEN / Unknown Lab Venipuncture / Unknown 04/01/2024 3:04 AM CDT 04/01/2024 3:37 AM CDT Malachi Wayne MD LAB - HEMATOLOGY ORD ERABLES Performing Organization Address [facility]/State/[facility] Co de Phone Number [address] [phone] [phone] * (ABNORMAL) COMPREHENSIVE METABOLIC PANEL (04/01/2024 3:04 AM CDT) Only the most recent of9 resultswithin the time period is included. BUN 14 7 - 26 mg/dL 04/01/2024 4:07 AM [facility] Creatinine 0.69(L) 0.71 - 1.16 mg/dL 04/01/2024 4:07 AM [facility] Sodium 139 136 - 145 mmol/L 04/01/2024 4:07 AM [facility] Potassium 3.7 3.5 - 4.5 mmol/L 04/01/2024 4:07 AM [facility] Chloride 110(H) 98 - 107 mmol/L 04/01/2024 4:07 AM [facility] CO2 25 22 - 29 mmol/L 04/01/2024 4:07 AM [facility] Glucose 137(H) 70 - 115 mg/dL 04/01/2024 4:07 AM [facility] Calcium 8.6 8.4 - 10.2 mg/dL 04/01/2024 4:07 AM [facility] Protein Total 5.6(L) 6.0 - 8.3 g/dL 04/01/2024 4:07 AM [facility] Albumin 2.8(L) 3.4 - 5.0 g/dL 04/01/2024 4:07 AM [facility] Bilirubin Total 1.3(H) 0.2 - 1.2 mg/dL 04/01/2024 4:07 AM [facility] Alkaline Phosphatase 66 40 - 150 U/L 04/01/2024 4:07 AM [facility] ALT 28 5 - 55 U/L 04/01/2024 4:07 AM [facility] AST 23 5 - 34 U/L 04/01/2024 4:07 AM [facility] Anion Gap 4(L) 6 - 16 04/01/2024 4:07 AM [facility] BUN/Creatinine Ratio 20 7 - 23 04/01/2024 4:07 AM [facility] Osmolality Calculated 291 275 - 295 mOsm/kg 04/01/2024 4:07 AM [facility] Albumin/Globulin Ratio 1.0(L) 1.1 - 2.3 04/01/2024 4:07 AM [facility] eGFR by CKD-EPI >90 >=90 mL/min/1.7 3 m2 04/01/2024 4:07 AM [facility] Blood BLOOD SPECIMEN / Unknown Lab Venipuncture / Unknown 04/01/2024 3:04 AM CDT 04/01/2024 3:37 AM CDT Malachi Wayne MD LAB - CHEMISTRY GOLDY GIBSON Performing Organization Address City/[facility]/ZIP Co de Phone Number [address] [address], [facility] [phone] * (ABNORMAL) PHOSPHORUS BLOOD (04/01/2024 3:04 AM CDT) Only the most recent of7 resultswithin the time period is included. Phosphorus 2.7(L) 2.8 - 5.1 mg/dL 04/01/2024 4:07 AM CDT [facility] Blood BLOOD SPECIMEN / Unknown Lab Venipuncture / Unknown 04/01/2024 3:04 AM CDT 04/01/2024 3:37 AM CDT Malachi Wayne MD LAB - CHEMISTRY GOLDY GIBSON Performing Organization Address [facility] Co de Phone Number [address] [address], [facility] [phone] * MAGNESIUM BLOOD (04/01/2024 3:04 AM CDT) Only the most recent of7 resultswithin the time period is included. Magnesium 1.8 1.6 - 2.6 mg/dL 04/01/2024 4:07 AM CDT [facility] Blood BLOOD SPECIMEN / Unknown Lab Venipuncture / Unknown 04/01/2024 3:04 AM CDT 04/01/2024 3:37 AM CDT Malachi Wayne MD LAB - CHEMISTRY GOLDY GIBSON Performing Organization Address City/[facility]/ZIP Co de Phone Number [address] [address], [facility] [phone] * ECHO COMPLETE W CONTRAST W BUBBLE STUDY (03/30/2024 10:11 AM CDT) MV VTI 29.327 cm SSM CV FUJ I PACS Sinus of Valsalva 3.226 cm SSM CV FUJI PACS MV mn grad 1.746 mmHg [facility] CV FU PACS LA vol index 0.067 l/m SSM CV [facility] PACS Myocardial strain charge 2 unitless SSM CV [facility] PACS IVSd 2D 1.24 cm [facility] [address] [facility] I PACS LVIDd 5.46 cm [facility] [address] [facility] I PACS LVIDs 4.006 cm [facility] [address] [facility] I PACS LVOT diam 2.027 cm [facility] [address] [facility] I PACS LVPWd 0.743 cm [facility] [address] [facility] I PACS LV biplane EF 70.872 % SSM CV [facility] PACS LV A2C EF 70.074 % SSM CV [facility] PACS LV A4C EF 72.043 % SSM CV [facility] I PACS LV EDV A2C 119.625 ml SSM CV FU PACS LV EDV A4C 128.891 ml SSM CV FU PACS LV ESV A2C 35.8 ml SSM CV FU PACS LV ESV A4C 36.035 ml SSM CV FU PACS LVOT pk cory 72.547 cm/s SSM CV F [facility] PACS LVOT VTI 18.139 cm SSM CV [facility] PACS RVIDd 2.704 cm SSM CV [facility] PACS RVOT pk cory 67.421 cm/s SSM CV F [facility] PACS RVOT VTI 14.723 cm SSM CV [facility] PACS LA size 5.009 cm SSM CV [facility] PACS LA vol BP 123.745 ml SSM CV [facility] PACS RA area 24.883 cm SSM CV [facility] PACS AV mn grad 16.634 mmHg SSM CV FU PACS AV pk cory 306.718 cm/s SSM CV [facility] PACS AV VTI 78.559 cm SSM CV [facility] PACS MV A pk cory 32.246 cm/s SSM CV F U PACS MV E pk cory 134.778 cm/s SSM CV F U PACS MV E' lateral cory 9.764 cm/s SSM CV [facility] PACS MV pk cory regurg 575.578 cm/s SSM CV [facility] PACS MR VTI 203.663 cm [address] [address] [facility] I PACS PV pk cory 85.811 cm/s SSM CV FUJ I PACS PV VTI 20.784 cm SSM CV FUJ I PACS TAPSE 1.715 cm SSM CV FUJ I PACS TR pk cory 332.452 cm/s SSM CV FUJ I PACS Ascending aorta 2.583 cm SSM CV FUJI PACS IVC Diam Expiration 2.712 cm SSM CV FUJI PACS Anatomical Region Laterality Modality Ultrasound 03/30/2024 8:06 AM CDT Narrative 03/30/2024 12:02 PM CDT Summary * The left ventricle is normal in size, with normal systolic function and an EF of 71 %. Left ventricular wall motion is normal. * The left ventricular mass is mildly increased with eccentric hypertrophy. * Right ventricle is dilated with normal systolic function. * The left atrium is severely dilated with a left atrial volume index of 67 ml/m2 by BP MOD. * The right atrium is moderately dilated. * The pulmonary artery systolic pressure is severely elevated, 59 mmHg. * The aortic valve is severely calcified. Possibly trileaflet, thought there is cusp fusion. * There is moderate aortic valve regurgitation on visual assessment. * There is severe aortic valve stenosis with a peak velocity of 3 m/s, mean gradient of 17 mmHg, and aortic valve area of 0.75 cm2. * There is severe and eccentric tricuspid valve regurgitation. Vena contracta is 0.85 cm. * There is mild to moderate mitral valve regurgitation on visual assessment. Patient Info Name: Moisés Yip Age: 78 years : 1945 Gender: Male Ht: 72 in Wt: 148 lb BSA: 1.84 m2 HR: 59 bpm BP: 152 / 44 mmHg Heart Rhythm: Indeterminate Exam Date: 03/30/2024 8:06 AM Patient Status: I/P Study Site: [facility] Primary Location: [facility] EStudy Info Technical Quality: Adequate Exam Type: ECHO COMPLETE W CONTRAST W BUBBLE STUDY Indications I63.9 - Cerebrovascular accident (CVA), unspecified mechanism (HCC) Procedure(s) * A complete 2D, color Doppler, spectral Doppler, and M-Mode transthoracic echocardiogram was performed. * An Ultrasound Enhancing Agent (UEA) was utilized to enhance endocardial definition, opacity the left ventricle and further assess left ventricular function and wall motion. Contrast/Agitated Saline Contrast / Saline: Definity Amount: 0.50 ml Administered By: Lei Harris Reaction to Contrast: no Contrast / Saline: Agitated Saline Amount: 20.00 ml Administered By: Lei Harris Reaction to Contrast: no Reason for Technically Difficult Study: patient supine, body habitus Staff Referring Physician: Malachi Wayne Ordering Provider: Malachi Wayne Attending Physician: Malachi Wayne [employer] Inspector: Lei Harris Left Ventricle Left ventricular systolic function is normal with an ejection fraction by Biplane Method of Discs of 71 %. The left ventricle is normal in size. The left ventricular mass is mildly increased with eccentric hypertrophy. Left ventricular segmental wall motion is normal. The left ventricular diastolic function is indeterminate. Right Ventricle The right ventricle is dilated. Right ventricular systolic function is normal. Left Atrium The left atrium is severely dilated with a left atrial volume index of 67 ml/m2 by BP MOD. Right Atrium The right atrium is moderately dilated. Atrial Septum Intact interatrial septum visualized by 2D and color Doppler imaging. Agitated saline contrast study at rest and with Valsalva is negative for a shunt. Aortic Valve The aortic valve is severely calcified. Possibly trileaflet, thought there is cusp fusion. There is moderate aortic valve regurgitation on visual assessment. There is severe aortic valve stenosis with a peak velocity of 3 m/s, mean gradient of 17 mmHg, and aortic valve area of 0.75 cm2. Pulmonic Valve The pulmonic valve is normal. There is no pulmonic valve stenosis. There is no pulmonic regurgitation. Mitral Valve Mitral annular calcification is present. The mitral valve is calcified. There is no mitral valve stenosis. There is mild to moderate mitral valve regurgitation on visual assessment. Tricuspid Valve The tricuspid valve is normal. There is severe and eccentric tricuspid valve regurgitation. Vena contracta is 0.85 cm. The pulmonary artery systolic pressure is severely elevated, 59 mmHg. Inferior Vena Cava The inferior vena cava is dilated (> 2.1 cm). There is < 50% collapse of the IVC upon inspiration with an estimated right atrial pressure of 15 mmHg. Pericardium/Pleural There is no pericardial effusion. Aorta The aortic root at the sinus of Valsalva is normal in size measuring 3.2 cm with an index of 1.8 cm/m2. The ascending aorta is normal in size measuring 2.6 cm with an index of 1.4 cm/m2. Measurements Left Ventricular Outflow Tract Name Value Normal LVOT 2D LVOT Diameter 2.0 cm LVOT Area 3.2 cm2 LVOT Doppler LVOT Peak Velocity 0.7 m/s LVOT Peak Gradient 2 mmHg LVOT Mean Velocity 46.27 cm/s LVOT Mean Gradient 1 mmHg LVOT VTI 18.1 cm LVOT VTI/AV VTI Ratio 0.2 LVOT Stroke Volume 59 ml LVOT Stroke Volume Index 32 ml/m2 35-58 LVOT CO 3.4 l/min LVOT CI 1.9 l/min/m2 Pulmonic Valve Name Value Normal RVOT Doppler RVOT Peak Velocity 0.7 m/s RVOT Peak Gradient 2 mmHg RVOT Mean Gradient 1 mmHg PV Doppler PV Peak Velocity 0.9 m/s PV Peak Gradient 3 mmHg PV Mean Gradient 1 mmHg Mitral Valve Name Value Normal MV Doppler MV Peak Gradient 7 mmHg MV Mean Gradient 2 mmHg MV DI (VTI) 1.62 MV Area (Cont Eq VTI) 1.99 cm2 MV Diastolic Function MV E Peak Velocity 1.3 m/sec MV A Peak Velocity 0.3 m/sec MV E/A 4.2 MV Decel Time (PW) 153 ms MV Annular TDI MV Septal e' Velocity 4 cm/s >=8 MV E/e' (Septal) 30 <=8 MV Lateral e' Velocity 10 cm/s >=10 MV E/e' (Lateral) 14 <=8 MV e' Average 7 cm/s MV E/e' (Average) 22 Tricuspid Valve Name Value Normal TV Regurgitation Doppler TR Peak Velocity 3.3 m/s TR Peak Gradient 44 mmHg Estimated PAP/RSVP RA Pressure 15 mmHg <=5 PA Systolic Pressure 59 mmHg <35 RV Systolic Pressure 59 mmHg <36 TV Annular TDI TV Lateral Tresa s' Velocity 9 cm/s 10-19 Aorta Name Value Normal Ascending Aorta Sinus of Valsalva Diameter 3.2 cm 2.8-4.0 Sinus of Valsalva Index 1.8 cm/m2 1.3-2.1 Asc Ao Diameter 2.6 cm 2.2-3.8 Asc Ao Diameter Index 1.4 cm/m2 1.1-1.9 Venous Name Value Normal IVC/SVC IVC Diameter 2.7 cm <=2.1 Aortic Valve Name Value Normal AV Doppler AV Peak Velocity 3.07 m/s AV Peak Gradient 34 mmHg AV Mean Gradient 17 mmHg AV VTI 79 cm AV Area (Cont Eq VTI) 0.75 cm2 >=2.00 AV Area (Cont Eq Cory) 0.76 cm2 AV DI (VTI) 0.23 AV DI (Cory) 0.24 AV Regurgitation 2D LVOT Area 3.23 cm2 Ventricles Name Value Normal LV Dimensions 2D/MM IVS Diastolic Thickness (2D) 1.2 cm 0.6-1.0 LVID Diastole (2D) 5.5 cm 4.2-5.8 LVPW Diastolic Thickness (2D) 0.7 cm 0.6-1.0 IVS Systolic Thickness (2D) 1.7 cm LVID Systole (2D) 4.0 cm 2.5-4.0 LVPW Systolic Thickness (2D) 1.2 cm LV Mass (2D Cubed) 226 g 88-224 LV Mass Index (2D Cubed) 123 g/m2 49-115 Relative Wall Thickness (2D) 0.27 <=0.42 LV Fractional Shortening/Ejection Fraction 2D/MM LV Fractional Shortening (2D) 27 % 25-43 LV EF (2D Teicholz) 52 % 52-72 LV Diastolic Volume (4C MOD) 129 ml LV EF (4C MOD) 72 % LV Diastolic Volume (2C MOD) 120 ml LV EF (2C MOD) 70 % LV Diastolic Volume (BP MOD) 124 ml 62-150 LV Diastolic Volume Index (BP MOD) 67 ml/m2 34-74 LV Systolic Volume (BP MOD) 36 ml 21-61 LV Systolic Volume Index (BP MOD) 20 ml/m2 11-31 LV EF (BP MOD) 71 % 52-72 LV Diastolic Length (4C) 8.5 cm LV Systolic Length (4C) 7.1 cm LV Stroke Volume (4C MOD) 93 ml RV Dimensions 2D/MM RVID Diastole (2D) 2.7 cm 2.5-3.5 RVID Systole (2D) 2.5 cm TAPSE 1.7 cm >=1.7 Atria Name Value Normal LA Dimensions LA Dimension (2D) 5.0 cm 3.0-4.1 LA Dimen Index (2D) 2.7 cm/m2 LA Volume (BP MOD) 124 ml LA Volume Index (BP MOD) 67 ml/m2 16-34 RA Dimensions RA Area (4C) 25 cm2 <=18 RA Area (4C) Index 14 cm2/m2 RA ESV (4C MOD) 78 ml 18-32 RA ESV Index (4C MOD) 42 ml/m2 16-34 Report Signatures Finalized by Cynthia Latham on 03/30/2024 12:02 PM Procedure Note Cynthia Latham MD - 03/30/2024 Summary * The left ventricle is normal in size, with normal systolic functionand an EF of 71 %. Left ventricular wall motion is normal. 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 * Right ventricle is dilated with normal systolic function. * The left atrium is severely dilated with a left atrial volume index of67 ml/m2 by BP MOD. * The right atrium is moderately dilated. * The pulmonary artery systolic pressure is severely elevated, 59mmHg. * The aortic valve is severely calcified. Possibly trileaflet,thought there is cusp fusion. * There is moderate aortic valve regurgitation on visual assessment. * There is severe aortic valve stenosis with a peak velocity of 3 m/s,mean gradient of 17 mmHg, and aortic valve area of 0.75 cm2. * There is severe and eccentric tricuspid valve regurgitation. Vena contracta is 0.85 cm. * There is mild to moderate mitral valve regurgitation on visualassessment. Patient Info Name: Moisés Yip Age: 78 years : 1945 Gender: Male Ht: 72 in Wt: 148 lb BSA: 1.84 m2 HR: 59 bpm BP: 152 / 44 mmHg Heart Rhythm: Indeterminate Exam Date: 03/30/2024 8:06 AM Patient Status: I/P Study Site: [facility] Primary Location: [facility] Technical Quality: Adequate Exam Type: ECHO COMPLETE W CONTRAST W BUBBLE STUDY Indications I63.9 - Cerebrovascular accident (CVA), unspecified mechanism (HCC) Procedure(s) * A complete 2D, color Doppler, spectral Doppler, and M-Modetransthoracic echocardiogram was performed. * An Ultrasound Enhancing Agent (UEA) was utilized to enhanceendocardial definition, opacity the left ventricle and further assess leftventricular function and wall motion. Contrast/Agitated Saline Contrast / Saline: Definity Amount: 0.50 ml Administered By: Lei Harris Reaction to Contrast: no Contrast / Saline: Agitated Saline Amount: 20.00 ml Administered By: Lei Harris Reaction to Contrast: no Reason for Technically Difficult Study: patient supine, bodyhabitus Staff Referring Physician: Malachi Wayne Ordering Provider: Malachi Wayne Attending Physician: Malachi Wayne [employer]argo And Container Inspector: Lei Harris Left Ventricle Left ventricular systolic function is normal with an ejection fractionby Biplane Method of Discs of 71 %. The left ventricle is normal in size.The left ventricular mass is mildly increased with eccentric hypertrophy.Left ventricular segmental wall motion is normal. The left ventriculardiastolic function is indeterminate. Right Ventricle The right ventricle is dilated. Right ventricular systolic function is normal. Left Atrium The left atrium is severely dilated with a left atrial volume index of67 ml/m2 by BP MOD. Right Atrium The right atrium is moderately dilated. Atrial Septum Intact interatrial septum visualized by 2D and color Doppler imaging. Agitated saline contrast study at rest and with Valsalva is negative fora shunt. Aortic Valve The aortic valve is severely calcified. Possibly trileaflet, thoughtthere is cusp fusion. There is moderate aortic valve regurgitation on visual assessment. There is severe aortic valve stenosis with a peak velocity of3 m/s, mean gradient of 17 mmHg, and aortic valve area of 0.75 cm2. Pulmonic Valve The pulmonic valve is normal. There is no pulmonic valve stenosis. Thereis no pulmonic regurgitation. Mitral Valve Mitral annular calcification is present. The mitral valve iscalcified. There is no mitral valve stenosis. There is mild to moderate mitralvalve regurgitation on visual assessment. Tricuspid Valve The tricuspid valve is normal. There is severe and eccentric tricuspidvalve regurgitation. Vena contracta is 0.85 cm. The pulmonary artery systolic pressure is severely elevated, 59 mmHg. Inferior Vena Cava The inferior vena cava is dilated (> 2.1 cm). There is < 50% collapse ofthe IVC upon inspiration with an estimated right atrial pressure of 15 mmHg. Pericardium/Pleural There is no pericardial effusion. Aorta The aortic root at the sinus of Valsalva is normal in size measuring 3.2cm with an index of 1.8 cm/m2. The ascending aorta is normal in sizemeasuring 2.6 cm with an index of 1.4 cm/m2. Measurements Left Ventricular Outflow Tract Name Value Normal LVOT 2D LVOT Diameter 2.0 cm LVOT Area 3.2 cm2 LVOT Doppler LVOT Peak Velocity 0.7 m/s LVOT Peak Gradient 2 mmHg LVOT Mean Velocity 46.27 cm/s LVOT Mean Gradient 1 mmHg LVOT VTI 18.1 cm LVOT VTI/AV VTI Ratio 0.2 LVOT Stroke Volume 59 ml LVOT Stroke Volume Index 32 ml/m2 35-58 LVOT CO 3.4 l/min LVOT CI 1.9 l/min/m2 Pulmonic Valve Name Value Normal RVOT Doppler RVOT Peak Velocity 0.7 m/s RVOT Peak Gradient 2 mmHg RVOT Mean Gradient 1 mmHg PV Doppler PV Peak Velocity 0.9 m/s PV Peak Gradient 3 mmHg PV Mean Gradient 1 mmHg Mitral Valve Name Value Normal MV Doppler MV Peak Gradient 7 mmHg MV Mean Gradient 2 mmHg MV DI (VTI) 1.62 MV Area (Cont Eq VTI) 1.99 cm2 MV Diastolic Function MV E Peak Velocity 1.3 m/sec MV A Peak Velocity 0.3 m/sec MV E/A 4.2 MV Decel Time (PW) 153 ms MV Annular TDI MV Septal e' Velocity 4 cm/s >=8 MV E/e' (Septal) 30 <=8 MV Lateral e' Velocity 10 cm/s >=10 MV E/e' (Lateral) 14 <=8 MV e' Average 7 cm/s MV E/e' (Average) 22 Tricuspid Valve Name Value Normal TV Regurgitation Doppler TR Peak Velocity 3.3 m/s TR Peak Gradient 44 mmHg Estimated PAP/RSVP RA Pressure 15 mmHg <=5 PA Systolic Pressure 59 mmHg <35 RV Systolic Pressure 59 mmHg <36 TV Annular TDI TV Lateral Tresa s' Velocity 9 cm/s 10-19 Aorta Name Value Normal Ascending Aorta Sinus of Valsalva Diameter 3.2 cm 2.8-4.0 Sinus of Valsalva Index 1.8 cm/m2 1.3-2.1 Asc Ao Diameter 2.6 cm 2.2-3.8 Asc Ao Diameter Index 1.4 cm/m2 1.1-1.9 Venous Name Value Normal IVC/SVC IVC Diameter 2.7 cm <=2.1 Aortic Valve Name Value Normal AV Doppler AV Peak Velocity 3.07 m/s AV Peak Gradient 34 mmHg AV Mean Gradient 17 mmHg AV VTI 79 cm AV Area (Cont Eq VTI) 0.75 cm2 >=2.00 AV Area (Cont Eq Cory) 0.76 cm2 AV DI (VTI) 0.23 AV DI (Cory) 0.24 AV Regurgitation 2D LVOT Area 3.23 cm2 Ventricles Name Value Normal LV Dimensions 2D/MM IVS Diastolic Thickness (2D) 1.2 cm 0.6-1.0 LVID Diastole (2D) 5.5 cm 4.2-5.8 LVPW Diastolic Thickness (2D) 0.7 cm 0.6-1.0 IVS Systolic Thickness (2D) 1.7 cm LVID Systole (2D) 4.0 cm 2.5-4.0 LVPW Systolic Thickness (2D) 1.2 cm LV Mass (2D Cubed) 226 g 88-224 LV Mass Index (2D Cubed) 123 g/m2 49-115 Relative Wall Thickness (2D) 0.27 <=0.42 LV Fractional Shortening/Ejection Fraction 2D/MM LV Fractional Shortening (2D) 27 % 25-43 LV EF (2D Teicholz) 52 % 52-72 LV Diastolic Volume (4C MOD) 129 ml LV EF (4C MOD) 72 % LV Diastolic Volume (2C MOD) 120 ml LV EF (2C MOD) 70 % LV Diastolic Volume (BP MOD) 124 ml 62-150 LV Diastolic Volume Index (BP MOD) 67 ml/m2 34-74 LV Systolic Volume (BP MOD) 36 ml 21-61 LV Systolic Volume Index (BP MOD) 20 ml/m2 11-31 LV EF (BP MOD) 71 % 52-72 LV Diastolic Length (4C) 8.5 cm LV Systolic Length (4C) 7.1 cm LV Stroke Volume (4C MOD) 93 ml RV Dimensions 2D/MM RVID Diastole (2D) 2.7 cm 2.5-3.5 RVID Systole (2D) 2.5 cm TAPSE 1.7 cm >=1.7 Atria Name Value Normal LA Dimensions LA Dimension (2D) 5.0 cm 3.0-4.1 LA Dimen Index (2D) 2.7 cm/m2 LA Volume (BP MOD) 124 ml LA Volume Index (BP MOD) 67 ml/m2 16-34 RA Dimensions RA Area (4C) 25 cm2 <=18 RA Area (4C) Index 14 cm2/m2 RA ESV (4C MOD) 78 ml 18-32 RA ESV Index (4C MOD) 42 ml/m2 16-34 Report Signatures Finalized by Cynthia Latham on 03/30/2024 12:02 PM Malachi Wayne MD ECHO CUPID * HEMOGLOBIN A1C (03/30/2024 7:56 AM [facility]) Hemoglobin A1c 5.6 <=5.6 % 03/30/2024 9:41 AM [facility] Estimated Average Glucose 114 mg/dL 03/30/2024 9:41 AM [facility] Comment: HbA1c Interpretation: Normal : < 5.7% Pre-diabetes: 5.7-6.4% Diabetes: Equal to or greater than 6.5% Test results diagnostic of diabetes should be repeated for confirmation. Treatment target values recommended by ADA and other clinical organizations should be used to evaluate metabolic control in patients. Reference: [place] [employer], Standards of Care in Diabetes [...] Wayne MD LAB - CHEMISTRY [facility]Y [facility]ON Performing Organization Address City/[facility]/ZIP Co de Phone Number [address] [address], [facility] [phone] * (ABNORMAL) GLUCOSE (03/28/2024 10:04 AM CDT) Glucose 144(H) 70 - 115 mg/dL 03/28/2024 10:29 AM CDT [facility] Blood BLOOD SPECIMEN / Unknown Lab Venipuncture / Unknown 03/28/2024 10:04 AM CDT 03/28/2024 10:10 AM CDT Malachi Wayne MD LAB - CHEMISTRY [facility] Performing Organization Address [facility]/ZIP Co de Phone Number [address] [address], [place] [phone] * DIGOXIN LEVEL (03/27/2024 8:53 AM CDT) Digoxin 0.5 0.5 - 1.2 ng/mL 03/27/2024 10:20 AM CDT [facility] Blood BLOOD SPECIMEN / Unknown Venipuncture / Unknown 03/27/2024 8:53 AM CDT 03/27/2024 9:03 AM CDT Narrative [facility] - 03/27/2024 10:20 AM CDT Therapeutic reference range for heart failure is 0.5-0.9 ng/mL. For atrial fibrillation, it is 0.8-1.2 ng/mL. The bookkeeping machine operator of [employer] has stated that no immunoassay technique is suitable for quantitating digoxin in plasma/serum from patients on antibody fragment therapy. Malachi Wayne MD LAB - CHEMISTRY [facility]Y GIBS[facility] Organization Address City/State/ZIP Co de Phone Number [facility] [address] [place] [address], [facility] [phone] * CT Head Wo Contrast (03/26/2024 8:40 PM CDT) Anatomical Region Laterality Modality Head Computed Tomogra phy 03/26/2024 8:54 PM CDT Impressions 03/26/2024 10:21 PM CDT IMPRESSION: 1.Mild loss of beal-white differentiation in the left MCA territory. 2.No evidence of hemorrhagic transformation. The report is dictated by Talita Cornejo Dr, MD (cardiac cath lab radiology technologist) I, Bhupendra Shipley MD have personally reviewed and interpreted this examination/study. > Interpreting Provider: Bhupendra Shipley MD on 03/26/2024 10:21 PM Narrative 03/26/2024 10:21 PM CDT PROCEDURE: CT HEAD WO CONTRAST, DATE/TIME OF EXAM: 03/26/2024 8:41 PM, LOCATION [facility] INDICATION: I63.9: Cerebrovascular accident (CVA), unspecified mechanism (HCC) ADDITIONAL CLINICAL INFORMATION: Ordering Provider Reason For Exam: post tnk scan Technologist Note: None. Additional: None. EXAMINATION: Computed tomography (CT) of the head without contrast TECHNIQUE: CT of the head was performed without contrast according to standard protocol. CT dose reduction technique was used, including Automated Exposure Control. COMPARISON: CT brain stroke protocol dated 03/25/2024. FINDINGS: No acute intra- or extra-axial fluid collections are identified. There is mild cerebral volume loss with associated ex vacuo ventricular dilatation. The basilar cisterns are patent. No mass effect or midline shift is seen. Chronic lacunar infarcts in the bilateral basal ganglia. Mild loss of beal-white differentiation in the left basal ganglia consistent with MCA territory infarct. No evidence of hemorrhagic transformation. Periventricular white matter hypoattenuation is indicative of chronic small vessel ischemic disease. There is vascular calcification of the carotid siphons. The visualized portions of the orbits, paranasal sinuses, and mastoids appear normal. No acute fracture is identified. Procedure Note Bhupendra Shipley MD - 03/26/2024 PROCEDURE: CT HEAD WO CONTRAST, DATE/TIME OF EXAM: 03/26/2024 8:41 PM, LOCATION [facility] INDICATION: I63.9: Cerebrovascular accident (CVA), unspecified mechanism (HCC) ADDITIONAL CLINICAL INFORMATION: Ordering Provider Reason For Exam: post tnk scan Technologist Note: None. Additional: None. EXAMINATION: Computed tomography (CT) of the head without contrast TECHNIQUE: CT of the head was performed without contrast according to standard protocol. CT dose reduction technique was used, including Automated Exposure Control. COMPARISON: CT brain stroke protocol dated 03/25/2024. FINDINGS: No acute intra- or extra-axial fluid collections are identified. Thereis mild cerebral volume loss with associated ex vacuo ventriculardilatation. The basilar cisterns are patent. No mass effect or midline shift isseen. Chronic lacunar infarcts in the bilateral basal ganglia. Mild loss of beal-white differentiation in the left basal ganglia consistent with MCA territory infarct. No evidence of hemorrhagic transformation. Periventricular white matter hypoattenuation is indicative of chronicsmall vessel ischemic disease. There is vascular calcification of the carotid siphons. The visualized portions of the orbits, paranasal sinuses, and mastoids appear normal. No acute fracture is identified. IMPRESSION: 1.Mild loss of beal-white differentiation in the left MCA territory. 2.No evidence of hemorrhagic transformation. The report is dictated by Talita Cornejo Dr, MD (cardiac cath lab radiology technologist) Bhupendra Villanueva MD have personally reviewed and interpretedthis examination/study. > Interpreting Provider: Bhupendra Shipley MD on 03/26/2024 10:21 PM Malachi Wayne MD CT ORDERABLES * MRI Brain Wo Contrast (03/26/2024 1:17 PM CDT) Anatomical Region Laterality Modality Head Magnetic Resonan ce 03/26/2024 2:16 PM CDT Impressions 03/26/2024 2:23 PM CDT IMPRESSION: 1.Patchy foci of restricted diffusion in the left corpus striatum, involving the left basal ganglia and the adjacent left caudate, extending to the left subinsular region with additional patchy foci of restricted diffusion in the left frontoparietal region. Findings are compatible with evolving acute left MCA territory infarcts. No evidence of hemorrhagic transformation. 2.No evidence of midline shift. Communication: These findings are known to the stroke team and were reported on the prior CT. > Interpreting Provider: Bhupendra Shipley MD on 03/26/2024 2:23 PM Narrative 03/26/2024 2:23 PM CDT PROCEDURE: MRI BRAIN WO CONTRAST, DATE/TIME OF EXAM: 03/26/2024 1:17 PM, LOCATION [facility] INDICATION: I63.9: Cerebrovascular accident (CVA), unspecified mechanism (HCC) ADDITIONAL CLINICAL INFORMATION: Ordering Provider Reason For Exam: Stroke Technologist Note: None. Additional: None. EXAMINATION: Magnetic resonance imaging (MRI) of the brain without contrast TECHNIQUE: MRI of the brain was performed without contrast according to standard protocol. COMPARISON: CT of the head and CT angiogram of the neck from 03/25/2024. FINDINGS: No evidence of acute or chronic hemorrhage is identified. Subtle susceptibility artifacts in the basal ganglia compatible with mineralization.. There are patchy foci of restricted diffusion in the left corpus striatum, involving the left basal ganglia and the adjacent left caudate, extending to the left subinsular region, and additional patchy foci of restricted diffusion in the left frontal parietal region. Findings are compatible with evolving acute left MCA territory infarcts. No evidence of hemorrhagic transformation. There is mild cerebral volume loss with associated ex vacuo ventricular dilatation. No mass effect or midline shift is seen. Periventricular and subcortical white matter FLAIR hyperintensities likely represent sequelae of chronic small vessel ischemic disease. Old lacunar infarcts are present in the bilateral cerebellar hemispheres, the left thalamus, and the periventricular white matter. Thinning of the corpus callosum. The corpus callosum and sella appear otherwise grossly unremarkable. The posterior fossa, brainstem, and craniocervical junction appear grossly abnormal. Other than mild paranasal sinus disease, and possible trace opacification in the posterior mastoid air cells. The visualized portions of the orbits, paranasal sinuses, and mastoids appear normal. Normal flow voids are demonstrated in the carotid arteries and basilar artery. Suspected degenerative changes in the thoracic spine. The calvarium and visualized cervical spine appear otherwise grossly unremarkable. Procedure Note Bhupendra Shipley MD - 03/26/2024 PROCEDURE: MRI BRAIN WO CONTRAST, DATE/TIME OF EXAM: 03/26/2024 1:17PM, LOCATION [facility] INDICATION: I63.9: Cerebrovascular accident (CVA), unspecified mechanism (HCC) ADDITIONAL CLINICAL INFORMATION: Ordering Provider Reason For Exam: Stroke Technologist Note: None. Additional: None. EXAMINATION: Magnetic resonance imaging (MRI) of the brain withoutcontrast TECHNIQUE: MRI of the brain was performed without contrast according to standard protocol. COMPARISON: CT of the head and CT angiogram of the neck from 03/25/2024. FINDINGS: No evidence of acute or chronic hemorrhage is identified. Subtle susceptibility artifacts in the basal ganglia compatible with mineralization.. There are patchy foci of restricted diffusion in the left corpusstriatum, involving the left basal ganglia and the adjacent left caudate,extending to the left subinsular region, and additional patchy foci of restricted diffusion in the left frontal parietal region. Findings are compatiblewith evolving acute left MCA territory infarcts. No evidence of hemorrhagic transformation. There is mild cerebral volume loss with associated ex vacuo ventricular dilatation. No mass effect or midline shift is seen. Periventricular and subcortical white matter FLAIR hyperintensities likely representsequelae of chronic small vessel ischemic disease. Old lacunar infarcts arepresent in the bilateral cerebellar hemispheres, the left thalamus, and the periventricular white matter. Thinning of the corpus callosum. Thecorpus callosum and sella appear otherwise grossly unremarkable. The posterior fossa, brainstem, and craniocervical junction appear grossly abnormal. Other than mild paranasal sinus disease, and possible traceopacification in the posterior mastoid air cells. The visualized portions of theorbits, paranasal sinuses, and mastoids appear normal. Normal flow voids are demonstrated in the carotid arteries and basilar artery. Suspected degenerative changes in the thoracic spine. The calvarium and visualized cervical spine appear otherwise grossly unremarkable. IMPRESSION: 1.Patchy foci of restricted diffusion in the left corpus striatum, involving the left basal ganglia and the adjacent left caudate,extending to the left subinsular region with additional patchy foci of restricted diffusion in the left frontoparietal region. Findings are compatiblewith evolving acute left MCA territory infarcts. No evidence of hemorrhagic transformation. 2.No evidence of midline shift. Communication: These findings are known to the stroke team and were reported on the prior CT. > Interpreting Provider: Bhupendra Shipley MD on 03/26/2024 2:23 PM Malachi Wayne MD MR ORDERABLES * XR Chest 1Vw Portable (03/26/2024 9:51 AM CDT) Anatomical Region Laterality Modality Chest Radiographic Lorena ging 03/26/2024 2:03 PM CDT Narrative 03/26/2024 2:04 PM CDT EXAMINATION: XR CHEST 1VW PORTABLE HISTORY: I63.9: Cerebrovascular accident (CVA), unspecified mechanism (HCC) COMPARISON: No prior study is available for comparison. FINDINGS/IMPRESSION: Lines/Tubes/Devices: *Median sternotomy wires are present. Aortic valve prosthesis is present. No confluent consolidation is noted. No pleural effusion is seen. No pneumothorax is identified. The heart is enlarged for this AP view. Aortic atherosclerosis is noted. The superior mediastinal contours are within normal limits. No acute osseous abnormality is identified. No free air is seen under the diaphragm. > Interpreting Provider: Rai Boss MD on 03/26/2024 2:04 PM Procedure Note Rai Boss MD - 03/26/2024 EXAMINATION: XR CHEST 1VW PORTABLE HISTORY: I63.9: Cerebrovascular accident (CVA), unspecified mechanism(HCC) COMPARISON: No prior study is available for comparison. FINDINGS/IMPRESSION: Lines/Tubes/Devices: *Median sternotomy wires are present. Aortic valve prosthesis ispresent. No confluent consolidation is noted. No pleural effusion is seen. No pneumothorax is identified. The heart is enlarged for this AP view.Aortic atherosclerosis is noted. The superior mediastinal contours are within normal limits. No acute osseous abnormality is identified. No free airis seen under the diaphragm. > Interpreting Provider: Rai Boss MD on 03/26/2024 2:04 PM Malachi Wayne MD DIAGNOSTIC IMAGING O RDERABLES * TROPONIN-I HIGH SENSITIVE REFLEX 1HOUR (03/26/2024 7:37 AM CDT) Only the most recent of2 resultswithin the time period is included. Pathologist [facility] Troponin I High Sensitive 35 <=35 ng/L 03/26/2024 8:29 AM CDT [facility] Delta Troponin I HS 03/26/2024 8:29 AM CDT [facility] Comment:Delta value intentio ricardo not calculated. Baseline to 1 hour specimen collection interval exceeded. Blood BLOOD SPECIMEN / Unknown Venipuncture / Unknown 03/26/2024 7:37 AM CDT 03/26/2024 7:56 AM CDT Malachi Wayne MD LAB - CHEMISTRY GOLDY GIBSON [address] [address], [facility] [phone] * TROPONIN-I HIGH SENSITIVE BASELINE + 1HR (03/26/2024 3:49 AM CDT) Only the most recent of2 resultswithin the time period is included. [facility] Troponin I High Sensitive 23 <=35 ng/L 03/26/2024 4:38 AM CDT [facility] Blood BLOOD SPECIMEN / Unknown Venipuncture / Unknown 03/26/2024 3:49 AM CDT 03/26/2024 4:01 AM CDT Malachi Wayne MD LAB - CHEMISTRY GOLDY GIBSON [address] [address], [facility] [phone] * (ABNORMAL) LIPID PROFILE (03/26/2024 3:49 AM CDT) [facility] Cholesterol Total 97 <200 mg/dL 03/26/2024 4:34 AM CDT [facility] HDL 39(L) >40 mg/dL 03/26/2024 4:34 AM CDT [facility] Comment: ATP III Classification of HDL Cholesterol: <40 mg/dL: Considered a major risk factor. >60 mg/dL: Considered a negative risk factor. LDL Calculated 46 <100 mg/dL 03/26/2024 4:34 AM CDT [facility] Comment: ATP III Classification of LDL Cholesterol: <100 mg/dL: Optimal 100 - 129 mg/dL: Near Optimal/Above Optimal 130 - 159 mg/dL: Borderline High 160 - 189 mg/dL: High >190 mg/dL: Very High Triglycerides 61 <150 mg/dL 03/26/2024 4:34 AM CDT [facility] Comment: ATP III Classification of Triglycerides: <150 mg/dL: Normal 150 - 199 mg/dL: Borderline High 200 - 400 mg/dL: High >500 mg/dL: Very High Blood BLOOD SPECIMEN / Unknown Venipuncture / Unknown 03/26/2024 3:49 AM CDT 03/26/2024 4:01 AM CDT Malachi Wayne MD LAB - CHEMISTRY G[facility]Y GIBSON Performing Organization Address City/[facility]/ZIP Co de Phone Number [address] [address], [facility] [phone] * BLOOD TYPE VERIFICATION (03/25/2024 9:50 PM CDT) ABO Rh O NEG 03/25/2024 10:19 PM CDT [facility] BLOOD BANK LAB Blood Bank BLOOD SPECIMEN / Unknown Venipuncture / Unknown 03/25/2024 9:50 PM CDT 03/25/2024 9:56 PM CDT Gamal Carlos MD LAB - BLOOD BANK ORD JACQUES [facility] BLOOD BANK LAB [address] [place] [address], [place] [phone] * EKG 12-LEAD (03/25/2024 8:22 PM CDT) Ventricular Rate 62 BPM [facility] MUSE QRS Duration ms 108 ms [facility] MUSE Q-T Interval ms 412 ms [facility] MUSE QTC Calculation (Bezet) 418 ms [facility] MUSE Calculated R Ava -66 degrees [facility] MUSE Calculated T Ava 9 degrees [facility] MUSE Interpretation EKG ATRIAL FIBRILLATION INCOMPLETE RIGHT BUNDLE BRANCH BLOCK LEFT ANTERIOR FASCICULAR BLOCK POSSIBLE ANTEROSEPTAL INFARCT , AGE UNDETERMINED ABNORMAL ECG Confirmed by MONIQUE GUTIÉRREZ MD ([id number]) on 04/05/2024 4:58:52 PM [facility] MUSE 03/25/2024 8:22 PM CDT 04/05/2024 4:58 PM CDT Gamal Carlos MD ECG ORDERABLES [facility] MUSE * CT ANGIO BRAIN NECK STROKE (03/25/2024 8:21 PM CDT) Anatomical Region Laterality Modality Head Computed Tomogra phy 03/25/2024 8:02 PM CDT Impressions 03/25/2024 8:13 PM CDT IMPRESSION: 1.No acute intracranial hemorrhage. 2.Atherosclerotic disease of the extracranial and intracranial arterial vessels as outlined. 3.Complete occlusion of the M2 segment of the left MCA. 4.Otherwise, no large arterial occlusions or hemodynamically significant stenoses identified in the head or neck. 5.Cervical spondylosis.. Viz.AI was used for large vessel occlusion detection. > Interpreting Provider: Bhupendra Shipley MD on 03/25/2024 8:13 PM Narrative 03/25/2024 8:13 PM CDT PROCEDURE: CT ANGIO BRAIN NECK STROKE, DATE/TIME OF EXAM: 03/25/2024 7:44 PM, LOCATION [facility] INDICATION: Code Stroke ADDITIONAL CLINICAL INFORMATION: Ordering Provider Reason For Exam: Code stroke. Technologist Note: None. Additional: None. EXAMINATION: 1. Computed tomographic (CT) angiography of the head with contrast 2. CT angiography of the neck with contrast TECHNIQUE: CT angiography of the head and neck was obtained after the uneventful administration of 75 mL Isovue-370 intravenous contrast. Three dimensional postprocessing was performed by the technologist and sent to the workstation for review. Stenosis measurements are based on NASCET criteria. CT dose reduction technique was used, including Automated Exposure Control. COMPARISON: Same day noncontrast CT of the head from 03/25/2024. FINDINGS: Non-angiographic findings: Please refer to the separately dictated noncontrast head CT for the non-angiographic findings. There is periventricular disease. Mild degenerative disc and joint disease are noted. The patient is status post median sternotomy. There is cervical spondylosis. There is developmental cervical spinal canal stenosis and superimposed multilevel degenerative disc and joint disease resulting in at least moderate spinal canal stenosis at multiple levels. Advanced facet arthropathy and uncovertebral hypertrophy resulting in moderate to severe neural foraminal stenosis at multiple levels. Heterogenous bone marrow density is a nonspecific finding. Status post CABG. Background emphysema. Angiographic findings: Limited visualization of the aortic arch. The configuration of the brachiocephalic vessels is difficult to assess due to coverage. There is atherosclerotic calcification of the innominate and subclavian arteries. There is atherosclerotic disease of the right carotid bifurcation and origin of the right internal carotid artery with less than 50 percent focal stenosis by NASCET criteria. The right common and internal carotid arteries otherwise appear normal. There is atherosclerotic disease of the left carotid bifurcation and origin of the left internal carotid artery with less than 50 percent focal stenosis by NASCET criteria. The left common and internal carotid arteries otherwise appear normal. There is atherosclerotic disease involving the cervical vertebral arteries without significant focal stenosis. There is atherosclerotic disease involving the distal internal carotid arteries without significant focal stenosis. Complete occlusion of the distal superior division M2 branch of the left middle cerebral artery, (series 6, images 101-103, and series 8, image 34). There is a thrombus filling a segment measuring approximately 7.7 mm forward by a focus of opacification in 4 by additional segment of near complete occlusion. The anterior and middle cerebral arteries appear otherwise patent. There is atherosclerotic disease involving the distal vertebral arteries without significant focal stenosis. The basilar artery and posterior cerebral arteries appear normal with origin of the right posterior cerebral artery. Otherwise, no aneurysms, vascular occlusions, or hemodynamically significant intracranial stenoses are identified. Procedure Note Bhupendra Shipley MD - 03/25/2024 PROCEDURE: CT ANGIO BRAIN NECK STROKE, DATE/TIME OF EXAM: 47:44 PM, LOCATION [facility] INDICATION: Code Stroke ADDITIONAL CLINICAL INFORMATION: Ordering Provider Reason For Exam: Code stroke. Technologist Note: None. Additional: None. EXAMINATION: 1. Computed tomographic (CT) angiography of the head with contrast 2. CT angiography of the neck with contrast TECHNIQUE: CT angiography of the head and neck was obtained after the uneventful administration of 75 mL Isovue-370 intravenous contrast.Three dimensional postprocessing was performed by the technologist and sent to the workstation for review. Stenosis measurements are based on NASCET criteria. CT dose reduction technique was used, including Automated Exposure Control. COMPARISON: Same day noncontrast CT of the head from 03/25/2024. FINDINGS: Non-angiographic findings: Please refer to the separately dictated noncontrast head CT for the non-angiographic findings. There is periventricular disease. Mild degenerative disc and joint disease are noted. The patient isstatus post median sternotomy. There is cervical spondylosis. There is developmental cervical spinal canal stenosis and superimposed multilevel degenerative disc and joint disease resulting in at least moderatespinal canal stenosis at multiple levels. Advanced facet arthropathy and uncovertebral hypertrophy resulting in moderate to severe neuralforaminal stenosis at multiple levels. Heterogenous bone marrow density is a nonspecific finding. Status post CABG. Background emphysema. Angiographic findings: Limited visualization of the aortic arch. The configuration of the brachiocephalic vessels is difficult to assess due to coverage. There is atherosclerotic calcification of the innominate and subclavian arteries. There is atherosclerotic disease of the right carotid bifurcation and origin of the right internal carotid artery with less than 50 percentfocal stenosis by NASCET criteria. The right common and internal carotidarteries otherwise appear normal. There is atherosclerotic disease of the left carotid bifurcation and origin of the left internal carotid artery with less than 50 percent focal stenosis by NASCET criteria. The left commonand internal carotid arteries otherwise appear normal. There isatherosclerotic disease involving the cervical vertebral arteries without significantfocal stenosis. There is atherosclerotic disease involving the distal internal carotid arteries without significant focal stenosis. Complete occlusion of the distal superior division M2 branch of the left middle cerebral artery, (series 6, images 101-103, and series 8, image 34). There is a thrombus filling a segment measuring approximately 7.7 mm forward by a focus of opacification in 4 by additional segment of near complete occlusion. The anterior and middle cerebral arteries appear otherwise patent. There is atherosclerotic disease involving the distal vertebral arteries without significant focal stenosis. The basilar artery and posterior cerebral arteries appear normal with origin of the right posterior cerebral artery. Otherwise, no aneurysms, vascular occlusions, or hemodynamically significant intracranial stenoses are identified. IMPRESSION: 1.No acute intracranial hemorrhage. 2.Atherosclerotic disease of the extracranial and intracranial arterial vessels as outlined. 3.Complete occlusion of the M2 segment of the left MCA. 4.Otherwise, no large arterial occlusions or hemodynamically significant stenoses identified in the head or neck. 5.Cervical spondylosis.. Viz.AI was used for large vessel occlusion detection. > Interpreting Provider: Bhupendra Shipley MD on 03/25/2024 8:13 PM Gamal Carlos MD CT ORDERABLES * TYPE + SCREEN PANEL (03/25/2024 8:14 PM CDT) Antibody Screen NEG 9:01 PM CDT [facility] ABO Rh O NEG 03/25/2024 9:01 PM CDT [facility] Blood Bank BLOOD SPECIMEN / Unknown Venipuncture / Unknown 03/25/2024 8:14 PM CDT 03/25/2024 8:23 PM CDT Gamal Carlos MD LAB - BLOOD BANK ORD ERABLES [facility] [address] [place] [address], [facility] [phone] * CT BRAIN - Stroke (03/25/2024 8:07 PM CDT) Anatomical Region Laterality Modality Head Computed Tomogra phy 03/25/2024 7:48 PM CDT Impressions 03/25/2024 7:58 PM CDT IMPRESSION: 1.No acute intracranial hemorrhage. 2.Findings concerning for evolving acute left MCA territory infarction. There is subtle loss of beal-white matter differentiation along the left insula, concerning for insular ribbon sign and suspected scattered foci of hypoattenuation in the left frontoparietal region. No evidence of hemorrhagic transformation. 3.Hypodense focus along a branch of the left MCA M2 or M2-M3 segment, concerning for left MCA dense sign. 4.Please note that CT is insensitive to nonhemorrhagic strokes and MRI of the brain should be considered for further evaluation Results of this exam were communicated with closed loop confirmation to Dr. Subramanian by Dr. hSipley on 03/25/2024 at 7:48 PM with read back comprehension and verification. > Interpreting Provider: Bhupendra Shipley MD on 03/25/2024 7:58 PM Narrative 03/25/2024 7:58 PM CDT PROCEDURE: CT BRAIN STROKE, DATE/TIME OF EXAM: 03/25/2024 7:44 PM, LOCATION [facility] INDICATION: Code Stroke EXAMINATION: Computed tomography (CT) of the head without contrast ADDITIONAL CLINICAL INFORMATION: Ordering Provider Reason For Exam: Code stroke. Technologist Note: None. Additional: None. TECHNIQUE: CT of the head was performed without contrast according to standard protocol. CT dose reduction technique was used, including Automated Exposure Control. COMPARISON: No prior study is available for comparison at the time of this dictation. FINDINGS: No acute intra- or extra-axial fluid collections are identified. There is mild cerebral volume loss with associated ex vacuo ventricular dilatation. The basilar cisterns are patent. No mass effect or midline shift is seen. Findings concerning for evolving acute left MCA territory infarction. There is subtle loss of beal-white matter differentiation along the left insula, concerning for insular ribbon sign and suspected scattered foci of hypoattenuation in the left frontoparietal region. No evidence of hemorrhagic transformation. Hypodense focus along a branch of the right MCA M2 or M2-M3 segment, concerning for MCA dense sign, (series 3, image 16 for example). Periventricular white matter hypoattenuation is indicative of chronic small vessel ischemic disease. There is vascular calcification of the carotid siphons and the V4 segments of the vertebral arteries. No acute calvarial fracture is identified. The orbits appear normal. There is mild paranasal sinus disease. There are small petra bullosa of the middle turbinates. The nasal septum is deviated to the right. The mastoid air cells are grossly clear. Small amount of cerumen is present in the right external auditory canal No soft tissue abnormality is identified. Procedure Note Bhupendra Shipley MD - 03/25/2024 PROCEDURE: CT BRAIN STROKE, DATE/TIME OF EXAM: 03/25/2024 7:44 PM, LOCATION [facility] INDICATION: Code Stroke EXAMINATION: Computed tomography (CT) of the head without contrast ADDITIONAL CLINICAL INFORMATION: Ordering Provider Reason For Exam: Code stroke. Technologist Note: None. Additional: None. TECHNIQUE: CT of the head was performed without contrast according to standard protocol. CT dose reduction technique was used, including Automated Exposure Control. COMPARISON: No prior study is available for comparison at the time ofthis dictation. FINDINGS: No acute intra- or extra-axial fluid collections are identified. Thereis mild cerebral volume loss with associated ex vacuo ventriculardilatation. The basilar cisterns are patent. No mass effect or midline shift isseen. Findings concerning for evolving acute left MCA territory infarction.There is subtle loss of beal-white matter differentiation along the leftinsula, concerning for insular ribbon sign and suspected scattered foci of hypoattenuation in the left frontoparietal region. No evidence of hemorrhagic transformation. Hypodense focus along a branch of the rightMCA M2 or M2-M3 segment, concerning for MCA dense sign, (series 3, image 16for example). Periventricular white matter hypoattenuation is indicative of chronic small vessel ischemic disease. There is vascular calcificationof the carotid siphons and the V4 segments of the vertebral arteries. Noacute calvarial fracture is identified. The orbits appear normal. There ismild paranasal sinus disease. There are small petra bullosa of the middle turbinates. The nasal septum is deviated to the right. The mastoid air cells are grossly clear. Small amount of cerumen is present in the right external auditory canal No soft tissue abnormality is identified. IMPRESSION: 1.No acute intracranial hemorrhage. 2.Findings concerning for evolving acute left MCA territory infarction. There is subtle loss of beal-white matter differentiation along the left insula, concerning for insular ribbon sign and suspected scattered fociof hypoattenuation in the left frontoparietal region. No evidence of hemorrhagic transformation. 3.Hypodense focus along a branch of the left MCA M2 or M2-M3 segment, concerning for left MCA dense sign. 4.Please note that CT is insensitive to nonhemorrhagic strokes and MRIof the brain should be considered for further evaluation Results of this exam were communicated with closed loop confirmation toDr. Subramanian by Dr. Shipley on 03/25/2024 at 7:48 PM with read backcomprehension and verification. > Interpreting Provider: Bhupendra Shipley MD on 03/25/2024 7:58 PM Gamal Carlos MD CT ORDERABLES * (ABNORMAL) INR WHOLE BLOOD - POINT OF CARE (IP) STROKE (03/25/2024 7:54 PM CDT) INR 1.7(H) 0.9 - 1.2 03/25/2024 8:18 PM CDT [facility] Device [id number] 03/25/2024 8:18 PM CDT [facility] Top Lift Compresser ID [id number] 03/25/2024 8:18 PM CDT [facility] Blood BLOOD SPECIMEN / Unknown 03/25/2024 7:54 PM CDT 03/25/2024 8:18 PM CDT Gamal Carlos MD LAB - POINT OF CARE ORDERABLES [address] [address], [place] [phone] * CREATININE - POCT INTERFACED (03/25/2024 7:54 PM CDT) Creatinine POCT 0.57 0.30 - 1.30 mg/dL 03/25/2024 8:45 PM CDT [facility] Comment:CT range acceptable eGFR >90 >=90 mL/min/1.7 3 m2 03/25/2024 8:45 PM CDT [facility] Blood BLOOD SPECIMEN / Unknown 03/25/2024 7:54 PM CDT 03/25/2024 8:45 PM CDT Gamal Carlos MD LAB - POINT OF CARE ORDERABLES [address] [address], [place] [phone] Care Teams Ophthalmic Surgical Assistant Relationship Specialty Start Date End Date Dimitry Kamara MD [address] [place] [id number] PCP - General Internal Medicine 04/13/24
--- OUTSIDE RECORDS SUMMARY | 2024-09-29 12:39 | XMS_ITS | Clinical Summary ---
Author Organization [facility] Address [address] [place] [address] Care Team Providers Care Director Heart Name Role Phone Dimitry Kamara MD Primary Care Provider [phone] Source Comments [facility],non-owned Affiliates and Associated Physician Practices is amultiple site organization consisting of ambulatory clinics and hospital sitesin [place], [place], [place] and [place]. This disclosure is being madepursuant to the Care Everywhere program and may not contain all information available regarding this patient. Last updated 18.[facility] Allergies No known active allergies Medications * [...] (one) tablet by mouth at bedtime Active Hoagland-3 Fatty Acids (fish oil) 500 MG capsule [...] Recorded Patient Health Questionnaire-2 Score 0 03/31/2024 [place] [facility] - Occupational Stress [...] place to sleep or slept in a alf (including now)? No 03/25/2024 Sex and Gender [...] Mass Index 20.71 03/30/2024 8:28 AM CDT Plan of Treatment Health Maintenance Due Date Last Done Comments HEPATITIS C SCREENING 10/07/1963 DTAP/TDAP/TD VACCINES (1 - Tdap) 1964 PNEUMOCOCCAL VACCINE 50+ (1 of 2 - PCV) 1964 ZOSTER VACCINE (1 of 2) 10/12/1995 Respiratory Syncytial Virus (RSV) Vaccine Pt: or over 60 yrs (1 - 1-dose 75+ series) 2020 COVID-19 VACCINE (1 - 2023- season) 2024 INFLUENZA VACCINE (#1) 2024 DIABETES RETINOPATHY SCREENING 03/28/2024 DIABETES-FOOT EXAM WITH MONOFILAMENT 03/28/2024 DEPRESSION SCREENING 07/27/2024 03/25/2024 DIABETES - URINE PROTEIN SCREENING 07/27/2024 MEDICARE AWV CALENDAR YEAR 2024 DIABETES-HGB A1C 09/27/2024 03/30/2024 DIABETES-SERUM CREATININE 04/01/20252023, 03/31/2024, 03/30/2024, Additional history exists HEPATITIS B VACCINE Aged Out No longe r eligible based on patient's age to complete this topic HIB VACCINE Aged Out No longer eligi ble based on patient's age to complete this topic HPV VACCINE Aged Out No longer eligi ble based on patient's age to complete this topic MENINGOCOCCAL (Group B) VACCINE Aged Out No longer eligible based on patient's age to complete this topic MENINGOCOCCAL VACCINE Aged Out No jose kenrick eligible based on patient's age to complete this topic Procedures Procedure Name Priority Date/Time Associated Diagnosis Comments COMPREHENSIVE METABOLIC PANEL Routine 04/01/2024 3:04 AM CDT HEMOGLOBIN A1C Routine 03/30/2024 7:56 AM CDT from Last 3 Months or Most Recently Relevant to Health Maintenance Results * (ABNORMAL) COMPREHENSIVE METABOLIC PANEL (04/01/2024 3:04 AM CDT) BUN 14 7 - 26 mg/dL 04/01/2024 4:07 AM CDT [facility] Creatinine 0.69(L) 0.71 - 1.16 mg/dL 04/01/2024 4:07 AM CDT [facility] Sodium 139 136 - 145 mmol/L 04/01/2024 4:07 AM [facility] Potassium 3.7 3.5 - 4.5 mmol/L 04/01/2024 4:07 AM [facility] Chloride 110(H) 98 - 107 mmol/L 04/01/2024 4:07 AM [facility] CO2 25 22 - 29 mmol/L 04/01/2024 4:07 AM [facility] Glucose 137(H) 70 - 115 mg/dL 04/01/2024 4:07 AM [facility] Calcium 8.6 8.4 - 10.2 mg/dL 04/01/2024 4:07 AM [facility] Protein Total 5.6(L) 6.0 - 8.3 g/dL 04/01/2024 4:07 AM [facility] Albumin 2.8(L) 3.4 - 5.0 g/dL 04/01/2024 4:07 AM [facility] Bilirubin Total 1.3(H) 0.2 - 1.2 mg/dL 04/01/2024 4:07 AM [facility] Alkaline Phosphatase 66 40 - 150 U/L 04/01/2024 4:07 AM [facility] ALT 28 5 - 55 U/L 04/01/2024 4:07 AM [facility] AST 23 5 - 34 U/L 04/01/2024 4:07 AM [facility] Anion Gap 4(L) 6 - 16 04/01/2024 4:07 AM [facility] BUN/Creatinine Ratio 20 7 - 23 04/01/2024 4:07 AM [facility] Osmolality Calculated 291 275 - 295 mOsm/kg 04/01/2024 4:07 AM [facility] Albumin/Globulin Ratio 1.0(L) 1.1 - 2.3 04/01/2024 4:07 AM [facility] eGFR by CKD-EPI >90 >=90 mL/min/1.7 3 m2 04/01/2024 4:07 AM [facility] Blood BLOOD SPECIMEN / Unknown Lab Venipuncture / Unknown 04/01/2024 3:04 AM CDT 04/01/2024 3:37 AM CDT Malachi Wayne MD LAB - CHEMISTRY [facility] [address] [place] [address], [place] [phone] * HEMOGLOBIN A1C (03/30/2024 7:56 AM CDT) Hemoglobin A1c 5.6 <=5.6 % 03/30/2024 9:41 AM CDT [facility] Estimated Average Glucose 114 mg/dL 03/30/2024 9:41 AM CDT [facility] Comment: HbA1c Interpretation: Normal : < 5.7% Pre-diabetes: 5.7-6.4% Diabetes: Equal to or greater than 6.5% Test results diagnostic of diabetes should be repeated for confirmation. Treatment target values recommended by ADA and other clinical organizations should be used to evaluate metabolic control in patients. Reference: [place] Diabetes Association, Standards of Care in Diabetes -2020 In patients 70 years and older consider HbA1c target range of 7.0-7.5% (Reference: Jamal Mo, et al. JAMDA. 2012) The Sebia assay for the measurement of HbA1c is a National Glycohemoglobin Standardization Program (NGSP) certified method. Blood BLOOD SPECIMEN / Unknown Lab Venipuncture / Unknown 03/30/2024 7:56 AM CDT 03/30/2024 8:27 AM CDT Malachi Wayne MD LAB - CHEMISTRY [facility] [address] [place] [address], [place] [phone] from Last 3 Months or Most Recently Relevant to Health Maintenance Advance Directives * Full Code (Latest Code Status on File) Date Activated Date Inactivated Comments 03/25/2024 8:09 PM 04/01/2024 1:28 PM Care Teams Director Heart Relationship Specialty Start Date End Date Dimitry Kamara MD [address] [facility] [address] [place] [address] PCP - General Internal Medicine 04/13/24
--- OUTSIDE RECORDS SUMMARY | 2024-09-29 12:40 | XMS_ITS | Encounter Summary ---
Author Organization [facility] Address [address] [place] [address] Care Team Providers Care Nurse Outreach Case Manager Name Role Phone Dimitry Kamara MD Primary Care Provider [phone] Jesusita Han MD Unavailable Encounter Details Date Type Department Care Team (Late st Contact Info) Description 10/06/2023 Orders Only [facility] Health Information Management [address] [place] [id number] Scanning, Provider Social History Tobacco Use Types Packs/Day Years Used Date Smoking Tobacco: Every Day Smokeless Tobacco: Never Comments:Smoking History Pac ks/day: 1 Packs Alcohol Use Standard Drinks/Week Comments No 0 (1 standard drink = 0.6 oz pur e alcohol) Sex and Gender Information Value Date Recorded Sex Assigned at Not on file 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 Gender Identity Not on file Sexual Orientation Not on file documented as of this encounter Plan of Treatment Not on file documented as of this encounter Procedures Procedure Name Priority Date/Time Associated Diagnosis Comments SCAN - LABS 10/06/2023 documented in this encounter Results * SCAN - LABS (10/06/2023) us Provider Scanning Final Result documented in this encounter Visit Diagnoses Not on filedocumented in this encounter Care Teams Nurse Outreach Case Manager Relationship Specialty Start Date End Date Dimitry Kamara MD [address] [place] [address] PCP - General 10/24/16 Jesusita Han MD [address] [facility] [address] [place] [address] Supervisor [place] 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
--- OUTSIDE RECORDS SUMMARY | 2024-09-29 12:40 | XMS_ITS | Encounter Summary ---
Author Organization [facility] Healthcare Address [address] [place] [address] Care Team Providers Care Education Program Coordinator Name Role Phone Dimitry Kamara MD Primary Care Provider [phone] Jesusita Han MD Unavailable [phone] Encounter Details Date Type Department Care Team (Late st Contact Info) Description 11/09/2023 Orders Only [facility] [place] [facility] Information Management [address] [place] [id number] Scanning, Provider Social History Tobacco Use Types Packs/Day Years Used Date Smoking Tobacco: Every Day Smokeless Tobacco: Never Comments:Smoking History Pac ks/day: 1 Packs Alcohol Use Standard Drinks/Week Comments No 0 (1 standard drink = 0.6 oz pur e alcohol) Sex and Gender Information Value Date Recorded Sex Assigned at Not on file 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 Gender Identity Not on file Sexual Orientation Not on file documented as of this encounter Plan of Treatment Not on file documented as of this encounter Procedures Procedure Name Priority Date/Time Associated Diagnosis Comments SCAN - LABS 11/09/2023 documented in this encounter Results * SCAN - LABS (11/09/2023) us Provider Scanning Final Result documented in this encounter Visit Diagnoses Not on filedocumented in this encounter Care Teams Education Program Coordinator Relationship Specialty Start Date End Date Dimitry Kamara MD [address] [place] [address] PCP - General 10/24/16 Jesusita Han MD [address] [address] [place] [address] Organizational Effectiveness Director 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
--- OUTSIDE RECORDS SUMMARY | 2024-09-29 12:40 | XMS_ITS | Encounter Summary ---
Author Organization [facility] Address 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 Name Role Phone Meryl Friedman MD Primary Care Provider + Encounter Details Date Type Department Care Team (Latest Contact Info) Description 11/02/2007 Inpatient Historical HIS PATIENT IN A BED Jesusita Roland MD NO ADDRESS ON FILE Mary Arellano Jr., MD NO ADDRESS ON FILE Congestive Heart Failure, Unspecified (CMS/HCC) Social History Tobacco Use Types Packs/Day Years Used Date Smoking Tobacco: Never Assessed Sex and Gender Information Value Date Recorded Sex Assigned at Not on file Legal Sex Male 2:54 AM BAKER Gender Identity Not on file Sexual Orientation Not on file documented as of this encounter Plan of Treatment Not on file documented as of this encounter Procedures Procedure Name Priority Date/Time Associated Diagnosis Comments CL CORONARY ANGIOGRAM Routine 06/03/2008 4:22 PM BAKER POC GLUCOSE Routine 11/16/2007 7:22 AM CDT PROTIME-INR Routine 11/16/2007 5:00 AM CDT POC GLUCOSE Routine 11/15/2007 8:06 PM CDT POC GLUCOSE Routine 11/15/2007 4:47 PM CDT POC GLUCOSE Routine 11/15/2007 10:57 AM CDT CBC WITH DIFFERENTIAL Timed Study 11/15/2007 4:00 AM CDT PROTIME-INR Routine 11/15/2007 4:00 AM CDT MAGNESIUM LEVEL Timed Study 11/15/2007 4:00 AM CDT BASIC METABOLIC PANEL Timed Study 11/15/2007 4:00 AM CDT POC GLUCOSE Routine 11/14/2007 8:08 PM CDT POC GLUCOSE Routine 11/14/2007 4:11 PM CDT POC GLUCOSE Routine 11/14/2007 11:29 AM CDT POC GLUCOSE Routine 11/14/2007 7:44 AM CDT XR CHEST PA AND LATERAL 2 VW Timed Study 11/14/2007 5:55 AM CDT CBC WITH DIFFERENTIAL Routine 11/14/2007 4:25 AM CDT POC GLUCOSE Routine 11/13/2007 8:54 PM CDT POC GLUCOSE Routine 11/13/2007 4:21 PM CDT POC GLUCOSE Routine 11/13/2007 11:25 AM CDT POC GLUCOSE Routine 11/13/2007 7:23 AM CDT CBC WITH DIFFERENTIAL Routine 11/13/2007 5:00 AM CDT MAGNESIUM LEVEL Timed Study 11/13/2007 5:00 AM CDT BASIC METABOLIC PANEL Routine 11/13/2007 5:00 AM CDT POC GLUCOSE Routine 11/12/2007 8:47 PM CDT POC GLUCOSE Routine 11/12/2007 6:10 PM CDT POC GLUCOSE Routine 11/12/2007 12:15 PM CDT XR CHEST PA OR AP 1 VW Stat 11/12/2007 8:55 AM CDT POC GLUCOSE Routine 11/12/2007 7:40 AM CDT XR CHEST PA OR AP 1 VW Stat 11/12/2007 7:20 AM CDT POC GLUCOSE Routine 11/12/2007 6:18 AM CDT XR CHEST PA OR AP 1 VW Timed Study 11/12/2007 5:20 AM CDT POC GLUCOSE Routine 11/12/2007 5:06 AM CDT POC GLUCOSE Routine 11/12/2007 4:24 AM CDT CVR ONLY, CKMB/CK Timed Study 11/12/2007 4:1 5 AM CDT PT AND APTT Routine 11/12/2007 4:15 AM CDT CBC WITH DIFFERENTIAL Routine 11/12/2007 4:15 AM CDT COMPREHENSIVE METABOLIC PANEL Routine 11/12/2007 4:15 AM CDT POC GLUCOSE Routine 11/12/2007 3:11 AM CDT POC GLUCOSE Routine 11/12/2007 2:08 AM CDT POC GLUCOSE Routine 11/12/2007 1:00 AM CDT POC GLUCOSE Routine 11/12/2007 12:19 AM CDT POTASSIUM LEVEL Stat 11/12/2007 12:12 AM CDT POC GLUCOSE Routine 11/11/2007 11:07 PM CDT POC GLUCOSE Routine 11/11/2007 10:21 PM CDT POC, BLOOD GASES Routine 11/11/2007 10:0 1 PM CDT POC GLUCOSE Routine 11/11/2007 9:11 PM CDT POC GLUCOSE Routine 11/11/2007 8:02 PM CDT POTASSIUM LEVEL Stat 11/11/2007 7:55 PM CDT POC, BLOOD GASES Routine 11/11/2007 5:30 PM CDT POC GLUCOSE Routine 11/11/2007 5:23 PM CDT CVR ONLY, CKMB/CK Stat 11/11/2007 5:1 4 PM CDT PT AND APTT Stat 11/11/2007 5:14 PM CDT CBC WITH DIFFERENTIAL Stat 11/11/2007 5:14 PM CDT XR CHEST PA OR AP 1 VW Stat 11/11/2007 5:14 PM CDT MAGNESIUM LEVEL Stat 11/11/2007 5:14 PM CDT BASIC METABOLIC PANEL Stat 11/11/2007 5:14 PM CDT POC, BLOOD GASES Routine 11/11/2007 4:44 PM CDT POC, BLOOD GASES Routine 11/11/2007 4:17 PM CDT POC, BLOOD GASES Routine 11/11/2007 3:56 PM CDT POC, BLOOD GASES Routine 11/11/2007 3:46 PM CDT POC, BLOOD GASES Routine 11/11/2007 3:11 PM CDT POC, BLOOD GASES Routine 11/11/2007 2:45 PM CDT MISCELLANEOUS CULTURE Routine 11/11/2007 2:45 PM CDT PATHOLOGY Routine 11/11/2007 2:39 PM CDT POC, BLOOD GASES Routine 11/11/2007 2:14 PM CDT POC, BLOOD GASES Routine 11/11/2007 2:07 PM CDT POC, BLOOD GASES Routine 11/11/2007 1:50 PM CDT POC, BLOOD GASES Routine 11/11/2007 12:5 2 PM CDT POC GLUCOSE Routine 11/11/2007 7:03 AM CDT POC GLUCOSE Routine 11/10/2007 8:15 PM CDT POC GLUCOSE Routine 11/10/2007 5:28 PM CDT POC GLUCOSE Routine 11/10/2007 11:41 AM CDT POC GLUCOSE Routine 11/10/2007 7:36 AM CDT POC GLUCOSE Routine 11/09/2007 8:15 PM CDT POC GLUCOSE Routine 11/09/2007 5:51 PM CDT POC GLUCOSE Routine 11/09/2007 11:34 AM CDT POC GLUCOSE Routine 11/09/2007 8:35 AM CDT XR CHEST PA AND LATERAL 2 VW Timed Study 11/09/2007 7:32 AM CDT CBC WITH DIFFERENTIAL Routine 11/09/2007 5:45 AM CDT DIGOXIN LEVEL Routine 11/09/2007 5:45 AM CDT COMPREHENSIVE METABOLIC PANEL Routine 11/09/2007 5:45 AM CDT URINALYSIS WITH REFLEX CULTURE Routine 11/09/2007 4:10 AM CDT URINALYSIS W/REFLEX MICROSCOPIC Routine 11/09/2007 4:10 AM CDT POC GLUCOSE Routine 11/08/2007 8:21 PM CDT POC GLUCOSE Routine 11/08/2007 4:56 PM CDT POC GLUCOSE Routine 11/08/2007 11:39 AM CDT POC GLUCOSE Routine 11/08/2007 7:22 AM CDT POC GLUCOSE Routine 11/07/2007 8:42 PM CDT POC GLUCOSE Routine 11/07/2007 4:44 PM CDT POC GLUCOSE Routine 11/07/2007 11:38 AM CDT PROTIME-INR Timed Study 11/07/2007 9:18 AM CDT DIGOXIN LEVEL Timed Study 11/07/2007 9:18 AM CDT BASIC METABOLIC PANEL Timed Study 11/07/2007 9:18 AM CDT POC GLUCOSE Routine 11/07/2007 7:22 AM CDT POC GLUCOSE Routine 11/06/2007 8:53 PM CDT POC GLUCOSE Routine 11/06/2007 4:42 PM CDT POC GLUCOSE Routine 11/06/2007 11:32 AM CDT POC GLUCOSE Routine 11/06/2007 7:27 AM CDT POC GLUCOSE Routine 11/05/2007 8:02 PM CDT POC GLUCOSE Routine 11/05/2007 4:54 PM CDT HEMOGLOBIN A1C Timed Study 11/05/2007 3:37 PM CDT POC GLUCOSE Routine 11/05/2007 11:30 AM CDT POC GLUCOSE Routine 11/05/2007 7:41 AM CDT BASIC METABOLIC PANEL Routine 11/05/2007 4:30 AM CDT C. DIFFICILE DETECTION Timed Study 11/04/2007 11:20 PM CDT POC GLUCOSE Routine 11/04/2007 8:02 PM CDT POC GLUCOSE Routine 11/04/2007 4:07 PM CDT POC GLUCOSE Routine 11/04/2007 11:35 AM CDT POC GLUCOSE Routine 11/04/2007 7:15 AM CDT CBC WITH DIFFERENTIAL Routine 11/04/2007 4:35 AM CDT PROTIME-INR Routine 11/04/2007 4:35 AM CDT BASIC METABOLIC PANEL Routine 11/04/2007 4:35 AM CDT SPUTUM CULTURE WITH GRAM STAIN Timed Study 11/03/2007 10:27 PM CDT INFLUENZA VIRUS A AND B, ANTIGEN DETECTION Timed Study 11/03/2007 10:05 PM CDT POC GLUCOSE Routine 11/03/2007 8:18 PM CDT ECHO COMPLETE Routine 11/03/2007 4:41 PM CDT POC GLUCOSE Routine 11/03/2007 4:33 PM CDT US DUPLEX ARTERIAL LEGS BILATERAL Routine 11/03/2007 3:33 PM CDT SPUTUM CULTURE WITH GRAM STAIN Stat 11/03/2007 12:13 PM CDT POC GLUCOSE Routine 11/03/2007 11:36 AM CDT TROPONIN (W/REFLEX CKMB/CK) Timed Study 11/03/2007 11:32 AM CDT BLOOD CULTURE Timed Study 11/03/2007 9:52 AM CDT BLOOD CULTURE Timed Study 11/03/2007 9:46 AM CDT POC GLUCOSE Routine 11/03/2007 7:07 AM CDT TROPONIN (W/REFLEX CKMB/CK) Timed Study 11/03/2007 2:55 AM CDT BASIC METABOLIC PANEL Routine 11/03/2007 2:55 AM CDT POC GLUCOSE Routine 11/02/2007 8:25 PM CDT XR CHEST PA AND LATERAL 2 VW Routine 11/02/2007 7:43 PM CDT TROPONIN (W/REFLEX CKMB/CK) Timed Study 11/02/2007 7:05 PM CDT CBC WITH DIFFERENTIAL Timed Study 11/02/2007 7:05 PM CDT PROTIME-INR Timed Study 11/02/2007 7:05 PM CDT TSH Timed Study 11/02/2007 7:05 PM CDT HEPATIC FUNCTION PANEL Timed Study 11/02/2007 7:05 PM CDT LIPID PANEL Timed Study 11/02/2007 7:05 PM CDT BASIC METABOLIC PANEL Timed Study 11/02/2007 7:05 PM CDT documented in this encounter Results * CL CORONARY ANGIOGRAM (06/03/2008 4:22 PM BAKER) Narrative INTERFACE SYSTEM - 06/03/2008 4:22 PM BAKER [address] [place] [address] [email or web address] Comprehensive Report Patient: Patricia Dunham Study ID: [id number] Gender: M : 1945 Age: 62 years Race: 1 Room: Bed: Height: 70 in ( 177.8 cm ) Study Date: November 08, 2007 Patient status: Inpatient Weight: 218 lb ( 99.1 kg ) Access. #: [id number] POC: Attending MD: Lien Performing MD: Lien Indications and History: INDICATIONS: Aortic valve disease, Mitral valve disease, and Tricuspid valve disease. CLINICAL PRESENTATION: NYHA class III congestive heart failure was recently diagnosed. HISTORY: The patient had family history of coronary artery disease, hypertension, recent cigarette use (within one month of this admission), and oral hypoglycemic-treated diabetes. PRIOR DIAGNOSTIC TEST RESULTS: Previous echocardiogram (transthoracic)during same admission: 35 % estimated ejection fraction, severe aortic valve stenosis, and moderate to severe mitral valvular regurgitation. Procedure(s) Performed: DIAGNOSTIC PROCEDURES: Right heart catheterization. Selective coronary angiography. Angiography of the arch and ascending aorta. Study Conclusions: SUMMARY - There was critical aortic stenosis. There was moderate to severe aortic insufficiency (3+/4+). - Coronary angiography demonstrated minor luminal irregularities. Left main: There was a 30 % stenosis in the distal third of the vessel segment : RECOMMENDATIONS Based on the conclusions of this study, a cardiac surgery consult be obtained for aortic valve replacement. COMPLICATIONS: There were no complications. Description of Procedure: BACKGROUND INFORMATION: The procedures, together with their attendant risks and alternatives, and conscious sedation were explained to the patient and informed consent was obtained. Contrast ( Optiray, 130 ml ) was administered during the procedure. The patient was given 25.000 mcg FENTANYL (IVP). The patient was given 50.000 mL (IV) IV Solutions. The patient was given 5.000 mg VERSED (IVP). NARRATIVE: - Right femoral vein access. The procedure was done with local anesthesia the modified Seldinger technique. A 7 Fr short sheath was advanced into the vein. - Right heart catheterization. A 7 Fr [place] catheter was advanced to the pulmonary artery wedge position. Measurements of pressures, arterial and venous oxygen saturation, and cardiac output [thermodilution] were obtained. - Right femoral artery access. A 6 F sheath 11cm sheath was advanced into the artery. - Left heart catheterization. A 5F JR 4.0 (diagnostic) catheter was advanced to the ascending aorta over a straight guidewire after previous attempts to cross the valve with a pigtail catheter were not successful. Attempts to exchange the JR4.0 catheter for a pigtail catheter were unsuccessful as the pigtail catheter would not cross the aortic valve, even over a guidewire. Therefore, no ventriculogram was done. - Left and right coronary angiography. A 6 Fr FL4 , 6 Fr FR4 catheter was advanced to the ascending aorta , and positioned in the vessel ostia, , under fluoroscopic guidance. Digital angiography was performed in multiple projections using hand-injection of contrast. - Ascending aortography.. A 5F Pigtail - 155 (diagnostic) catheter was placed and contrast was injected. 60 degree L[place] projection - Arterial hemostasis was obtained by manual compression. Venous hemostasis was obtained by manual compression. Cardiac structures: VALVES: Aortic valve: There was critical aortic stenosis. There was moderate to severe aortic insufficiency (3+/4+). AORTOGRAPHY: The aortic root was normal in size. Coronary and graft angiography: The coronary circulation is right dominant. LEFT MAIN CORONARY ARTERY: Left main: The vessel was large. Angiography showed mild diffuse atherosclerosis. There was a 30 % stenosis in the distal third of the vessel segment : LEFT ANTERIOR DESCENDING AND BRANCHES: LAD: The vessel was large. Angiography showed mild diffuse atherosclerosis. There were three major diagonal branches. LEFT CIRCUMFLEX AND BRANCHES: Circumflex: The vessel was large. Angiography showed mild diffuse atherosclerosis. There were two major obtuse marginals. RIGHT CORONARY AND BRANCHES: RCA: The vessel was medium-large. Angiography showed mild diffuse atherosclerosis. IMPRESSIONS: Coronary angiography demonstrated minor luminal irregularities. Condition1: --- Pressure mmHg Rate dPdt RA 9-A, 10-V, 8-M 105 BPM RV 48-S/ 4-BD, 7-ED 116 BPM 980 PA 39-S/ 15-D, 27-M 110 BPM PCW 25-A, 25-V, 19-M 110 BPM AO 107-S/ 64-D, 84-M 105 BPM LV 187-S/ 5-BD, 14-ED 88 BPM 2800 AOp 103-S/ 60-D, 79-M 89 BPM UD1 112-S/ 65-D, 84-M 91 BPM UD2 120-S/ 62-D, 84-M 91 BPM Valves Condition1: Calculations done with : Juan Miguel Valve Flow Area Index Peak Mean --- ml/sec cm2 cm2/m2 mmHg mmHg TRICUSPID 533.46 17.03 7.88 1 0.5 MITRAL 288.60 3.88 1.79 5 3.9 AORTIC 239.80 0.71 0.33 80 58.8 PULMONIC 249.03 2.19 1.01 9 6.6 OTHER 5.3 Calculations done with : Thermo Valve Flow Area Index Peak Mean --- ml/sec cm2 cm2/m2 mmHg mmHg TRICUSPID 409.62 13.08 6.05 1 0.5 MITRAL 221.60 2.98 1.38 5 3.9 AORTIC 184.13 0.54 0.25 80 58.8 PULMONIC 191.22 1.68 0.78 9 6.6 OTHER 5.3 Oxygen Values Condition1: Consumption: 275 ml/min Capacity: 204 ml/L Cardiac Output Condition1: --- HR : BPM CO : L/min CI : L/min/M^2 PVR : dyne x sec/cm^5 SVR : TSR : SWI : gm x M/M^2 SV : ml SVI : ml/M^2 Juan Miguel HR : 97 CO : 5.6 CI : 2.59 PVR : 114.29 SVR : 1085.71 TSR : 1200.00 SWI : 23.63 SV : 57.73 SVI : 26.73 Thermo HR : 97 CO : 4.3 CI : 1.99 PVR : 148.84 SVR : 1413.95 TSR : 1562.79 SWI : 18.14 SV : 44.33 SVI : 20.52 Saturations and Hemoglobin Condition1: --- Average Sample 1 Sample 2 Sample 3 Site %Sat HGB Cont %Sat HGB %Sat HGB %Sat HGB HIGH_RA 65 0.0 132.6 65 RPA 67 0.0 136.7 67 MID_AO 91 0.0 185.6 91 Condition2:lv/ao --- Pressure mmHg Rate dPdt AO 116-S/ 58-D, 80-M 84 BPM LV 193-S/ 2-BD, 14-ED 84 BPM 3420 Valves Condition2:lv/ao Calculations done with : Juan Miguel Valve Flow Area Index Peak Mean --- ml/sec cm2 cm2/m2 mmHg mmHg AORTIC 256.41 0.71 0.33 77 66.4 Calculations done with : Thermo Valve Flow Area Index Peak Mean --- ml/sec cm2 cm2/m2 mmHg mmHg AORTIC 196.89 0.55 0.25 77 66.4 Oxygen Values Condition2:lv/ao Consumption: 275 ml/min Capacity: 204 ml/L Cardiac Output Condition2:lv/ao --- HR CO CI PVR SVR TSR SWI SV SVI --- BPM L/min L/min/M^2 dyne x sec/cm^5 ml ml/M^2 Juan Miguel 97 5.6 2.59 1142.86 57.73 26.73 Thermo 97 4.3 1.99 1488.37 44.33 20.52 Saturations and Hemoglobin Condition2:lv/ao --- Average Sample 1 Sample 2 Sample 3 Site %Sat HGB Cont %Sat HGB %Sat HGB %Sat HGB LPA 67 0.0 136.7 67 LOW_AO 91 0.0 185.6 91 Condition3:lv/wedge --- Pressure mmHg Rate dPdt PCW 24-A, 24-V, 18-M 94 BPM LV 187-S/ 5-BD, 12-ED 94 BPM 2960 Prepared and Electronically Authenticated Jesusita Roland MD Confirmed June 03, 2008 16:02:33 Procedure Note Provider, Historical - 06/03/2008 [address] [place] [address] [email or web address] Comprehensive Report Patient: Patricia Dunham Study ID: [id number] Gender: M : 1945 Age: 62 years Race: 1 Room: Bed: Height: 70 in ( 177.8 cm ) Study Date: November 08, 2007 Patient status: Inpatient Weight: 218 lb ( 99.1 kg ) Access. #: [id number] POC: Attending MD: Lien Blair MD: Lien Indications and History: INDICATIONS: Aortic valve disease, Mitral valve disease, and Tricuspid valve disease. CLINICAL PRESENTATION: NYHA class III congestive heart failure was recently diagnosed. HISTORY: The patient had family history of coronary artery disease, hypertension, recent cigarette use (within one month of this admission), and oral hypoglycemic-treated diabetes. PRIOR DIAGNOSTIC TEST RESULTS: Previous echocardiogram (transthoracic)during same admission: 35 % estimated ejection fraction, severe aortic valve stenosis, and moderateto severe mitral valvular regurgitation. Procedure(s) Performed: DIAGNOSTIC PROCEDURES: Right heart catheterization. Selective coronary angiography. Angiographyof the arch and ascending aorta. Study Conclusions: SUMMARY - There was critical aortic stenosis. There was moderate to severeaortic insufficiency (3+/4+). - Coronary angiography demonstrated minor luminal irregularities. Left main: There was a 30 % stenosis in the distal third of the vessel segment : RECOMMENDATIONS Based on the conclusions of this study, a cardiac surgery consult be obtained for aortic valve replacement. COMPLICATIONS: There were no complications. Description of Procedure: BACKGROUND INFORMATION: The procedures, together with their attendant risks and alternatives,and conscious sedation were explained to the patient and informed consentwas obtained. Contrast ( Optiray, 130 ml ) was administered during the procedure. The patient was given 25.000 mcg FENTANYL (IVP). The patientwas given 50.000 mL (IV) IV Solutions. The patient was given 5.000 mg VERSED (IVP). NARRATIVE: - Right femoral vein access. The procedure was done with localanesthesia the modified Seldinger technique. A 7 Fr short sheath was advanced into the vein. - Right heart catheterization. A 7 Fr [place] catheter was advancedto the pulmonary artery wedge position. Measurements of pressures, arterial and venous oxygen saturation, and cardiac output [thermodilution] were obtained. - Right femoral artery access. A 6 F sheath 11cm sheath was advancedinto the artery. - Left heart catheterization. A 5F JR 4.0 (diagnostic) catheter was advanced to the ascending aorta over a straight guidewire after previous attempts to cross the valve with a pigtail catheter were not successful. Attempts to exchange the JR4.0 catheter for a pigtail catheter were unsuccessful as the pigtail catheter would not cross the aortic valve, even over a guidewire. Therefore, no ventriculogram was done. - Left and right coronary angiography. A 6 Fr FL4 , 6 Fr FR4 catheterwas advanced to the ascending aorta , and positioned in the vessel ostia, , under fluoroscopic guidance. Digital angiography was performed in multiple projections using hand-injection of contrast. - Ascending aortography.. A 5F Pigtail - 155 (diagnostic) catheter was placed and contrast was injected. 60 degree [place] projection - Arterial hemostasis was obtained by manual compression. Venous hemostasis was obtained by manual compression. Cardiac structures: VALVES: Aortic valve: There was critical aortic stenosis. There was moderate to severe aortic insufficiency (3+/4+). AORTOGRAPHY: The aortic root was normal in size. Coronary and graft angiography: The coronary circulation is right dominant. LEFT MAIN CORONARY ARTERY: Left main: The vessel was large. Angiography showed mild diffuse atherosclerosis. There was a 30 % stenosis in the distal third of the vessel segment : LEFT ANTERIOR DESCENDING AND BRANCHES: LAD: The vessel was large. Angiography showed mild diffuseatherosclerosis. There were three major diagonal branches. LEFT CIRCUMFLEX AND BRANCHES: Circumflex: The vessel was large. Angiography showed mild diffuse atherosclerosis. There were two major obtuse marginals. RIGHT CORONARY AND BRANCHES: RCA: The vessel was medium-large. Angiography showed mild diffuse atherosclerosis. IMPRESSIONS: Coronary angiography demonstrated minor luminal irregularities. Condition1: --- Pressure mmHg Rate dPdt RA 9-A, 10-V, 8-M 105 BPM RV 48-S/ 4-BD, 7-ED 116 BPM 980 PA 39-S/ 15-D, 27-M 110 BPM PCW 25-A, 25-V, 19-M 110 BPM AO 107-S/ 64-D, 84-M 105 BPM LV 187-S/ 5-BD, 14-ED 88 BPM 2800 AOp 103-S/ 60-D, 79-M 89 BPM UD1 112-S/ 65-D, 84-M 91 BPM UD2 120-S/ 62-D, 84-M 91 BPM Valves Condition1: Calculations done with : Juan Miguel Valve Flow Area Index Peak Mean --- ml/sec cm2 cm2/m2 mmHg mmHg TRICUSPID 533.46 17.03 7.88 1 0.5 MITRAL 288.60 3.88 1.79 5 3.9 AORTIC 239.80 0.71 0.33 80 58.8 PULMONIC 249.03 2.19 1.01 9 6.6 OTHER 5.3 Calculations done with : Thermo Valve Flow Area Index Peak Mean --- ml/sec cm2 cm2/m2 mmHg mmHg TRICUSPID 409.62 13.08 6.05 1 0.5 MITRAL 221.60 2.98 1.38 5 3.9 AORTIC 184.13 0.54 0.25 80 58.8 PULMONIC 191.22 1.68 0.78 9 6.6 OTHER 5.3 Oxygen Values Condition1: Consumption: 275 ml/min Capacity: 204 ml/L Cardiac Output Condition1: --- HR : BPM CO : L/min CI : L/min/M^2 PVR : dyne x sec/cm^5 SVR : TSR : SWI : gm x M/M^2 SV : ml SVI : ml/M^2 Juan Miguel HR : 97 CO : 5.6 CI : 2.59 PVR : 114.29 SVR : 1085.71 TSR : 1200.00 SWI : 23.63 SV : 57.73 SVI : 26.73 Thermo HR : 97 CO : 4.3 CI : 1.99 PVR : 148.84 SVR : 1413.95 TSR : 1562.79 SWI : 18.14 SV : 44.33 SVI : 20.52 Saturations and Hemoglobin Condition1: --- Average Sample 1 Sample 2 Sample 3 Site %Sat HGB Cont %Sat HGB %Sat HGB %Sat HGB HIGH_RA 65 0.0 132.6 65 RPA 67 0.0 136.7 67 MID_AO 91 0.0 185.6 91 Condition2:lv/ao --- Pressure mmHg Rate dPdt AO 116-S/ 58-D, 80-M 84 BPM LV 193-S/ 2-BD, 14-ED 84 BPM 3420 Valves Condition2:lv/ao Calculations done with : Juan Miguel Valve Flow Area Index Peak Mean --- ml/sec cm2 cm2/m2 mmHg mmHg AORTIC 256.41 0.71 0.33 77 66.4 Calculations done with : Thermo Valve Flow Area Index Peak Mean --- ml/sec cm2 cm2/m2 mmHg mmHg AORTIC 196.89 0.55 0.25 77 66.4 Oxygen Values Condition2:lv/ao Consumption: 275 ml/min Capacity: 204 ml/L Cardiac Output Condition2:lv/ao --- HR CO CI PVR SVR TSR SWI SV SVI --- BPM L/min L/min/M^2 dyne x sec/cm^5 ml ml/M^2 Juan Miguel 97 5.6 2.59 1142.86 57.73 26.73 Thermo 97 4.3 1.99 1488.37 44.33 20.52 Saturations and Hemoglobin Condition2:lv/ao --- Average Sample 1 Sample 2 Sample 3 Site %Sat HGB Cont %Sat HGB %Sat HGB %Sat HGB LPA 67 0.0 136.7 67 LOW_AO 91 0.0 185.6 91 Condition3:lv/wedge --- Pressure mmHg Rate dPdt PCW 24-A, 24-V, 18-M 94 BPM LV 187-S/ 5-BD, 12-ED 94 BPM 2960 Prepared and Electronically Authenticated Jesusita Roland MD Confirmed June 03, 2008 16:02:33 Mary Arellano Jr., MD FLUOROSCOPY ORDERABLES Final Result Performing Organization Address City/[facility] Co de Phone Number INTERFACE SYSTEM Refer to clinic/hospital department * POC GLUCOSE (11/16/2007 7:22 AM CDT) GLUCOSE POC 97 65 - 99 mg/dL [facility] Venous blood specimen (specimen) 11/16/2007 7:22 AM CDT 11/16/2007 7:22 AM CDT Jesusita Roland MD POINT OF CARE TESTING Final Result Performing Organization Address [facility] de Phone Number [facility] [address] [place] [address] * (ABNORMAL) PROTIME-INR (11/16/2007 5:00 AM CDT) PROTIME 20.4(H) 12.7 - 15.1 Seconds [facility] INR 1.7(H) 0.9 - 1.1 [facility] Comment: INR Therapeutic Range: Adult: 2.0 - 3.0 for pulmonary embolism or prophylaxis against venous thrombosis or systemic embolization. 2.0 - 3.0 for patients with tissue heart valves. 2.5 - 3.5 for patients with mechanical heart valves or post NH. Pediatric (12 years and under): 1.5 - 3.0 Although the target range in children is not well established, INR values of 1.5 - 3.0 are recommended for most patients. Higher values have been used in children with prosthetic cardiac valves and hereditary clotting disorders. (<3 days) therapeutic ranges have not been established. Blood specimen (specimen) 11/16/2007 5:00 AM CDT 11/16/2007 7:13 AM CDT Charleen HAMM HEMATOLOGY ORDERABLES Edited Performing Organization Address City/[facility]/ZIP Co de Phone Number [facility] [address] [place] [place] [address] * (ABNORMAL) POC GLUCOSE (11/15/2007 8:06 PM CDT) GLUCOSE POC 123(H) 65 - 99 mg/dL [facility] Venous blood specimen (specimen) 11/15/2007 8:06 PM CDT 11/15/2007 8:06 PM CDT Jesusita Roland MD POINT OF CARE TESTING Final Result Performing Organization Address [facility] Co de Phone Number [facility] [address] [place] [address] * (ABNORMAL) POC GLUCOSE (11/15/2007 4:47 PM CDT) GLUCOSE POC 62(L) 65 - 99 mg/dL [facility] Venous blood specimen (specimen) 11/15/2007 4:47 PM CDT 11/15/2007 4:47 PM CDT Jesusita Roland MD POINT OF CARE TESTING Final Result Performing Organization Address City/[facility]/ZIP Co de Phone Number [facility] [address] [place] [address] * (ABNORMAL) POC GLUCOSE (11/15/2007 10:57 AM CDT) GLUCOSE POC 162(H) 65 - 99 mg/dL [facility] Venous blood specimen (specimen) 11/15/2007 10:57 AM CDT 11/15/2007 10:57 AM CDT Jesusita Roland MD POINT OF CARE TESTING Final Result Performing Organization Address [facility] de Phone Number [facility] [address] [place] [address] * (ABNORMAL) PROTIME-INR (11/15/2007 4:00 AM CDT) PROTIME 16.8(H) 12.7 - 15.1 Seconds [facility] INR 1.4(H) 0.9 - 1.1 [facility] Comment: INR Therapeutic Range: Adult: 2.0 - 3.0 for pulmonary embolism or prophylaxis against venous thrombosis or systemic embolization. 2.0 - 3.0 for patients with tissue heart valves. 2.5 - 3.5 for patients with mechanical heart valves or post NH. Pediatric (12 years and under): 1.5 - 3.0 Although the target range in children is not well established, INR values of 1.5 - 3.0 are recommended for most patients. Higher values have been used in children with prosthetic cardiac valves and hereditary clotting disorders. (<3 days) therapeutic ranges have not been established. Blood specimen (specimen) 11/15/2007 4:00 AM CDT 11/15/2007 4:24 AM CDT Mary Arellano Jr., MD HEMATOLOGY ORDERABLES F inal Result Performing Organization Address [facility] Co de Phone Number [facility] [address] [place] [address] * MAGNESIUM LEVEL (11/15/2007 4:00 AM CDT) MAGNESIUM 2.4 1.5 - 2.5 mg/dL [facility] Blood specimen (specimen) 11/15/2007 4:00 AM CDT 11/15/2007 4:24 AM CDT Mary Arellano Jr., MD CHEMISTRY ORDERABLES Fi nal Result Performing Organization Address [facility]/ZIP Co de Phone Number [facility] [address] [place] [address] * (ABNORMAL) BASIC METABOLIC PANEL (11/15/2007 4:00 AM CDT) CHLORIDE 99 96 - 108 mmol/L [facility] GLUCOSE 91 65 - 99 mg/dL [facility] SODIUM 134(L) 135 - 145 mmol/L [facility] CALCIUM 8.4 8.4 - 10.2 mg/dL [facility] CO2 26 22 - 30 mmol/L [facility] CREATININE 0.83 0.67 - 1.17 mg/dL [facility] POTASSIUM 4.3 3.5 - 4.9 mmol/L [facility] BUN 26(H) 6 - 20 mg/dL [facility] GFR, >60 >=60 mL/min/1. 7 sq meter [facility] GFR >60 >=60 mL/min/1. 7 sq meter [facility] Comment: Estimated GFR rate interpretative information for both Americans and non- Americans is available on the [facility] Intranet at: [email or web address] Select: Lab Policies and Procedures Select: Reference Ranges - GFR Blood specimen (specimen) 11/15/2007 4:00 AM CDT 11/15/2007 4:24 AM CDT Mary Arellano Jr., MD CHEMISTRY ORDERABLES Ed ited Performing Organization Address City/[facility]/ZIP Co de Phone Number [facility] [address] [place] [address] * (ABNORMAL) CBC WITH DIFFERENTIAL (11/15/2007 4:00 AM CDT) RBC 4.03(L) 4.50 - 5.40 M/uL [facility] MCHC 33.1 31.5 - 35.5 % [facility] MCV 98.3 82.0 - 99.0 fL [facility] PLATELETS 106(L) 140 - 350 K/uL [facility] HEMOGLOBIN 13.1(L) 13.6 - 16.5 g/dL [facility] RDW 13.3 11.5 - 14.5 % [facility] WBC 13.6(H) 4.0 - 9.8 K/uL [facility] MCH 32.5 27.2 - 32.6 pg [facility] MPV 12.2 9.3 - 12.4 fL [facility] HEMATOCRIT 39.6(L) 40.0 - 48.0 % [facility] RDW-STDEV 47.5 37.1 - 48.7 fL [facility] NEUTROPHILS 77(H) 45 - 70 % [facility] NEUTROPHIL ABSOLUTE 10.45(H) 1.90 - 7.00 K/uL [facility] EOSINOPHILS 1 0 - 7 % [facility] EOSINOPHIL ABSOLUTE 0.08 0.00 - 0.70 K/uL [facility] LYMPHOCYTES 11(L) 16 - 45 % [facility] LYMPHOCYTE ABSOLUTE 1.50 0.70 - 4.50 K/uL [facility] BASOPHILS 0 0 - 2 % [facility] BASOPHILS ABSOLUTE 0.01 0.00 - 0.20 K/uL [facility] MONOCYTES 11 3 - 13 % [facility] MONOCYTE ABSOLUTE 1.51(H) 0.10 - 1.30 K/uL [facility] Blood specimen (specimen) 11/15/2007 4:00 AM CDT 11/15/2007 4:24 AM CDT Mary Arellano Jr., MD HEMATOLOGY ORDERABLES E dited Performing Organization Address City/[facility] Co de Phone Number INTERFACE SYSTEM Refer to clinic/hospital department [facility] [address] [place] [address] * POC GLUCOSE (11/14/2007 8:08 PM CDT) GLUCOSE POC 93 65 - 99 mg/dL [facility] Venous blood specimen (specimen) 11/14/2007 8:08 PM CDT 11/14/2007 8:08 PM CDT Jesusita Roland MD POINT OF CARE TESTING Final Result Performing Organization Address [facility] Co de Phone Number [facility] [address] [address] * (ABNORMAL) POC GLUCOSE (11/14/2007 4:11 PM CDT) GLUCOSE POC 112(H) 65 - 99 mg/dL [facility] Venous blood specimen (specimen) 11/14/2007 4:11 PM CDT 11/14/2007 4:11 PM CDT Jesusita Roland MD POINT OF CARE TESTING Final Result Performing Organization Address City/[facility]/ZIP Co de Phone Number [facility] [address] [place] [address] * (ABNORMAL) POC GLUCOSE (11/14/2007 11:29 AM CDT) GLUCOSE POC 108(H) 65 - 99 mg/dL [facility] Venous blood specimen (specimen) 11/14/2007 11:29 AM CDT 11/14/2007 11:29 AM CDT Jesusita Roland MD POINT OF CARE TESTING Final Result [facility] [address] [place] [address] * POC GLUCOSE (11/14/2007 7:44 AM CDT) GLUCOSE POC 84 65 - 99 mg/dL [facility] Venous blood specimen (specimen) 11/14/2007 7:44 AM CDT 11/14/2007 7:44 AM CDT Jesusita Roladn MD POINT OF CARE TESTING Final Result Performing Organization Address [facility] Co de Phone Number [facility] [address] [place] [address] * XR CHEST PA AND LATERAL (11/14/2007 5:55 AM CDT) Anatomical Region Laterality Modality Chest Other 11/14/2007 5:55 AM CDT Narrative 11/14/2007 8:46 AM CDT [facility] [address] [place], [place] [address] Admit Date: 11/02/2007 PATRICIA DUNHAM Sex: M Admit Prov: JESUSITA ROLAND Date: 1945 Primary Care Prov: MERYL FRIEDMAN CMRN: [id number] Room: [address] [place] [address] SSN: [id number] IMAGING SERVICES Ordering Prov: N/A Accession Number: [id number] Interpretation Chest 2 views, 11/14/07 Comparison: 11/12/2007 History: Congestive failure Two views demonstrate mild cardiomegaly unchanged status post median sternotomy and valve replacement. A small amount of bilateral pleural effusion is seen, with bilateral lower lobe atelectasis, left greater than right. There is no pneumothorax. . Dictated by: ASIA ALARCON 11/14/2007 08:44 Electronically signed by: ASIA ALARCON 11/14/2007 08:46 Procedure Note Asia Alarcon - 11/14/2007 [facility] [address] [place], [place] [address] Admit Date: 11/02/2007 PATRICIA DUNHAM Sex: M Admit Prov: JESUSITA ROLAND Date: 1945 Primary Care Prov: MERYL FRIEDMAN CMRN: [id number] Room: [address] [place] [address] SSN: [id number] IMAGING SERVICES Ordering Prov: N/A Interpretation Chest 2 views, 11/14/07 Comparison: 11/12/2007 History: Congestive failure Two views demonstrate mild cardiomegaly unchanged status postmedian sternotomy and valve replacement. A small amount of bilateralpleural effusion is seen, with bilateral lower lobe atelectasis, left greaterthan right. There is no pneumothorax. . Dictated by: ASIA ALARCON 11/14/2007 08:44 Electronically signed by: ASIA ALARCON 11/14/2007 08:46 Mary Arellano Jr., MD DIAGNOSTIC IMAGING ORDChavo [facility] Final Result * (ABNORMAL) CBC WITH DIFFERENTIAL (11/14/2007 4:25 AM CDT) MCH 32.1 27.2 - 32.6 pg [facility] MPV 12.5(H) 9.3 - 12.4 fL [facility] HEMATOCRIT 40.3 40.0 - 48.0 % [facility] RDW-STDEV 48.3 37.1 - 48.7 fL [facility] RBC 4.05(L) 4.50 - 5.40 M/uL [facility] MCHC 32.3 31.5 - 35.5 % [facility] MCV 99.5(H) 82.0 - 99.0 fL [facility] PLATELETS 81(L) 140 - 350 K/uL [facility] Comment: Persistent abnormal result HEMOGLOBIN 13.0(L) 13.6 - 16.5 g/dL [facility] RDW 13.3 11.5 - 14.5 % [facility] WBC 15.4(H) 4.0 - 9.8 K/uL [facility] MONOCYTE ABSOLUTE 1.92(H) 0.10 - 1.30 K/uL [facility] NEUTROPHILS 79(H) 45 - 70 % [facility] NEUTROPHIL ABSOLUTE 12.20(H) 1.90 - 7.00 K/uL [facility] EOSINOPHILS 0 0 - 7 % [facility] EOSINOPHIL ABSOLUTE 0.03 0.00 - 0.70 K/uL [facility] LYMPHOCYTES 8(L) 16 - 45 % [facility] LYMPHOCYTE ABSOLUTE 1.20 0.70 - 4.50 K/uL [facility] BASOPHILS 0 0 - 2 % [facility] BASOPHILS ABSOLUTE 0.02 0.00 - 0.20 K/uL [facility] MONOCYTES 13 3 - 13 % [facility] Blood specimen (specimen) 11/14/2007 4:25 AM CDT 11/14/2007 5:48 AM CDT us Charleen HAMM HEMATOLOGY ORDERABLES Edited INTERFACE SYSTEM Refer to clinic/hospital department [facility] [address] [place] [address] * (ABNORMAL) POC GLUCOSE (11/13/2007 8:54 PM CDT) GLUCOSE POC 114(H) 65 - 99 mg/dL [facility] Venous blood specimen (specimen) 11/13/2007 8:54 PM CDT 11/13/2007 8:54 PM CDT us Jesusita Roland MD POINT OF CARE TESTING Final Result Performing Organization Address [facility]/ZIP Co de Phone Number [facility] [address] [address] * (ABNORMAL) POC GLUCOSE (11/13/2007 4:21 PM CDT) GLUCOSE POC 64(L) 65 - 99 mg/dL [facility] Venous blood specimen (specimen) 11/13/2007 4:21 PM CDT 11/13/2007 4:21 PM CDT us Jesusita Roland MD POINT OF CARE TESTING Final Result Performing Organization Address [facility] Co de Phone Number [facility] [address] [place] [address] * (ABNORMAL) POC GLUCOSE (11/13/2007 11:25 AM CDT) GLUCOSE POC 161(H) 65 - 99 mg/dL [facility] Venous blood specimen (specimen) 11/13/2007 11:25 AM CDT 11/13/2007 11:25 AM CDT us Jesusita Roland MD POINT OF CARE TESTING Final Result Performing Organization Address City/[facility] Co de Phone Number [facility] [address] [place] [address] * (ABNORMAL) POC GLUCOSE (11/13/2007 7:23 AM CDT) GLUCOSE POC 101(H) 65 - 99 mg/dL [facility] Venous blood specimen (specimen) 11/13/2007 7:23 AM CDT 11/13/2007 7:23 AM CDT Jesusita Roland MD POINT OF CARE TESTING Final Result Performing Organization Address City/[facility]/ZIP Co de Phone Number [facility] [address] [place] [address] * MAGNESIUM LEVEL (11/13/2007 5:00 AM CDT) MAGNESIUM 2.3 1.5 - 2.5 mg/dL [facility] Blood specimen (specimen) 11/13/2007 5:00 AM CDT 11/13/2007 5:46 AM CDT Mary Arellano Jr., MD CHEMISTRY ORDERABLES Fi nal Result Performing Organization Address [facility] Co de Phone Number [facility] [address] [place] [address] * (ABNORMAL) BASIC METABOLIC PANEL (11/13/2007 5:00 AM CDT) BUN 17 6 - 20 mg/dL [facility] CHLORIDE 100 96 - 108 mmol/L [facility] GLUCOSE 106(H) 65 - 99 mg/dL [facility] SODIUM 135 135 - 145 mmol/L [facility] CALCIUM 8.7 8.4 - 10.2 mg/dL [facility] CO2 28 22 - 30 mmol/L [facility] CREATININE 0.93 0.67 - 1.17 mg/dL [facility] POTASSIUM 4.6 3.5 - 4.9 mmol/L [facility] GFR, >60 >=60 mL/min/1. 7 sq meter [facility] GFR >60 >=60 mL/min/1. 7 sq meter [facility] Comment: Estimated GFR rate interpretative information for both Americans and non- Americans is available on the [facility] Intranet at: [email or web address] Select: Lab Policies and Procedures Select: Reference Ranges - GFR Blood specimen (specimen) 11/13/2007 5:00 AM CDT 11/13/2007 5:46 AM CDT Mary Arellano Jr., MD CHEMISTRY ORDERABLES Ed ited [facility] [address] [place] [address] * (ABNORMAL) CBC WITH DIFFERENTIAL (11/13/2007 5:00 AM CDT) HEMATOCRIT 44.2 40.0 - 48.0 % [facility] RDW-STDEV 47.5 37.1 - 48.7 fL [facility] RBC 4.43(L) 4.50 - 5.40 M/uL [facility] MCHC 32.6 31.5 - 35.5 % [facility] MCV 99.8(H) 82.0 - 99.0 fL [facility] PLATELETS 82(L) 140 - 350 K/uL [facility] HEMOGLOBIN 14.4 13.6 - 16.5 g/dL [facility] RDW 13.2 11.5 - 14.5 % [facility] WBC 19.9(H) 4.0 - 9.8 K/uL [facility] MCH 32.5 27.2 - 32.6 pg [facility] MPV 12.7(H) 9.3 - 12.4 fL [facility] EOSINOPHILS 0 0 - 7 % [facility] EOSINOPHIL ABSOLUTE 0.04 0.00 - 0.70 K/uL [facility] LYMPHOCYTES 7(L) 16 - 45 % [facility] LYMPHOCYTE ABSOLUTE 1.37 0.70 - 4.50 K/uL [facility] BASOPHILS 0 0 - 2 % [facility] BASOPHILS ABSOLUTE 0.02 0.00 - 0.20 K/uL [facility] MONOCYTES 12 3 - 13 % [facility] MONOCYTE ABSOLUTE 2.40(H) 0.10 - 1.30 K/uL [facility] NEUTROPHILS 81(H) 45 - 70 % [facility] NEUTROPHIL ABSOLUTE 16.10(H) 1.90 - 7.00 K/uL [facility] Blood specimen (specimen) 11/13/2007 5:00 AM CDT 11/13/2007 5:46 AM CDT us Mary Arellano Jr., MD HEMATOLOGY ORDERABLES E dited INTERFACE SYSTEM Refer to clinic/hospital department [facility] [address] [place] [address] * (ABNORMAL) POC GLUCOSE (11/12/2007 8:47 PM CDT) GLUCOSE POC 174(H) 65 - 99 mg/dL [facility] Venous blood specimen (specimen) 11/12/2007 8:47 PM CDT 11/12/2007 8:47 PM CDT us Jesusita Roland MD POINT OF CARE TESTING Final Result Performing Organization Address City/[facility] Co de Phone Number [facility] [address] [address] * (ABNORMAL) POC GLUCOSE (11/12/2007 6:10 PM CDT) GLUCOSE POC 165(H) 65 - 99 mg/dL [facility] Venous blood specimen (specimen) 11/12/2007 6:10 PM CDT 11/12/2007 6:10 PM CDT Jesusita Roland MD POINT OF CARE TESTING Final Result [facility] [address] [place] [address] * (ABNORMAL) POC GLUCOSE (11/12/2007 12:15 PM CDT) COMMENT, GLU POC Notified RN [facility] GLUCOSE POC 177(H) 65 - 99 mg/dL [facility] Venous blood specimen (specimen) 11/12/2007 12:15 PM CDT 11/12/2007 12:15 PM CDT Jesusita Roland MD POINT OF CARE TESTING Final Result Performing Organization Address [facility] Co de Phone Number [facility] [address] [place] [address] * XR CHEST PA OR AP (11/12/2007 8:55 AM CDT) Anatomical Region Laterality Modality Chest Other 11/12/2007 8:55 AM CDT Narrative 11/12/2007 9:23 AM CDT [facility] [address] [place], [place] [address] Admit Date: 11/02/2007 PATRICIA DUNHAM Sex: M Admit Prov: JESUSITA ROLAND Date: 1945 Primary Care Prov: MERYL FRIEDMAN CMRN: [id number] Room: [address] [place] [address] SSN: [id number] IMAGING SERVICES Ordering Prov: N/A Accession Number: [id number] Interpretation Chest single view 11/12/2007 History: Chest tube removal Findings: Comparison study is from the same day. The left chest tube is unchanged in position. No pneumothorax is seen . There is again small left pleural effusion and mild left lower lobe atelectasis. The cardiac silhouette is prominent. The right intravenous catheter has been removed. . Dictated by: JESSICA PEPE 11/12/2007 09:20 Electronically signed by: JESSICA PEPE 11/12/2007 09:23 Procedure Note Jessica Pepe - 11/12/2007 [facility] [address] [place], [place] [address] Admit Date: 11/02/2007 PATRICIA DUNHAM Sex: M Admit Prov: JESUSITA ROLAND Date: 1945 Primary Care Prov: CARMINEBee MERYL Luh CMRN: [id number] Room: [address] [place] [address] SSN: [id number] IMAGING SERVICES Ordering Prov: N/A Interpretation Chest single view 11/12/2007 History: Chest tube removal Findings: Comparison study is from the same day. The left chest tubeis unchanged in position. No pneumothorax is seen . There is again smallleft pleural effusion and mild left lower lobe atelectasis. The cardiac silhouette is prominent. The right intravenous catheter has beenremoved. . Dictated by: JESSICA PEPE 11/12/2007 09:20 Electronically signed by: JESSICA PEPE 11/12/2007 09:23 us Mary Arellano Jr., MD DIAGNOSTIC IMAGING ORDChavo GIBSON Final Result * (ABNORMAL) POC GLUCOSE (11/12/2007 7:40 AM CDT) GLUCOSE POC 176(H) 65 - 99 mg/dL [facility] Venous blood specimen (specimen) 11/12/2007 7:40 AM CDT 11/12/2007 7:40 AM CDT us Jesusita Roland MD POINT OF CARE TESTING Final Result [facility] [address] [place] [address] * XR CHEST PA OR AP (11/12/2007 7:20 AM CDT) Anatomical Region Laterality Modality Chest Other 11/12/2007 7:20 AM CDT Narrative 11/12/2007 9:12 AM CDT [facility] [address] [place], [place] [address] Admit Date: 11/02/2007 PATRICIA DUNHAM Sex: M Admit Prov: JESUSITA ROLAND Date: 1945 Primary Care Prov: MERYL FRIEDMAN CMRN: [id number] Room: [address] [place] [address] SSN: [id number] IMAGING SERVICES Ordering Prov: N/A Accession Number: [id number] Interpretation Chest single view 11/12/2007 History: Postop Findings: Comparison study is from the same day. The right [place] catheter has been removed. There is right intravenous catheter with its tip in SVC. One of the left chest tubes has been removed. No pneumothorax is seen. Small left pleural effusion and mild left lower lobe atelectasis are noted. . Dictated by: JESSICA PEPE 11/12/2007 09:11 Electronically signed by: JESSICA PEPE 11/12/2007 09:12 Procedure Note Jessica Pepe - 11/12/2007 [place] [id number] [place], [place] [address] Admit Date: 11/02/2007 ANIKETPATRICIA MERRITT Sex: M Admit Prov: JESUSITA ROLAND Date: 1945 Primary Care Prov: MERYL FRIEDMAN CMRN: [id number] Room: [address] [place] [address] SSN: [id number] IMAGING SERVICES Ordering Prov: N/A Interpretation Chest single view 11/12/2007 History: Postop Findings: Comparison study is from the same day. The right[place] catheter has been removed. There is right intravenous catheter withits tip in SVC. One of the left chest tubes has been removed. No pneumothoraxis seen. Small left pleural effusion and mild left lower lobeatelectasis are noted. . Dictated by: JESSICA PEPE 11/12/2007 09:11 Electronically signed by: JESSICA PEPE 11/12/2007 09:12 us Mary Arellano Jr., MD DIAGNOSTIC IMAGING ORDE ARTHUR Final Result * (ABNORMAL) POC GLUCOSE (11/12/2007 6:18 AM CDT) GLUCOSE POC 151(H) 65 - 99 mg/dL [facility] Venous blood specimen (specimen) 11/12/2007 6:18 AM CDT 11/12/2007 6:18 AM CDT us Jesusita Roland MD POINT OF CARE TESTING Final Result Performing Organization Address City/State[facility] Co de Phone Number [facility] [address] [place] [address] * XR CHEST PA OR AP (11/12/2007 5:20 AM CDT) Anatomical Region Laterality Modality Chest Other 11/12/2007 5:20 AM CDT Narrative 11/12/2007 9:04 AM CDT [facility] [address] [place], [place] [address] Admit Date: 11/02/2007 PATRICIA DUNHAM Sex: M Admit Prov: JESUSITA ROLAND Date: 1945 Primary Care Prov: MERYL FRIEDMAN CMRN: [id number] Room: 42[facility] SSN: [id number] IMAGING SERVICES Ordering Prov: N/A Accession Number: [id number] Interpretation Chest, 11/12/2007 Clinical History: Respiratory abnormality and previous cardiac surgery. AP portable semiupright view of the chest on 11/12/2007 at 0515 hours is compared to 11/11/2007. The patient has been extubated. The patient is status post median sternotomy and prosthetic aortic valve. The mediastinal drainage tubes and left basilar chest tube are unchanged. A [place] catheter is noted with the tip projected over the right main pulmonary artery. The heart is enlarged but stable in size. Pulmonary vasculature is not congested. Mild retrocardiac atelectasis is noted. Lungs are otherwise clear. No effusions or pneumothoraces are evident. Impression: Interval extubation with mild left basilar atelectasis. Stable cardiomegaly. . Dictated by: JENNA MALDONADO 11/12/2007 07:52 Electronically signed by: JENNA MALDONADO11/12/2007 09:04 Transcribed: 11/12/2007 08:52 SMM Procedure Note Jenna Maldonado MD - 11/12/2007 [facility] [address] [place], [place] [address] Admit Date: 11/02/2007 PATRICIA DUNHAM Sex: M Admit Prov: JESUSITA ROLAND Date: 1945 Primary Care Prov: AISHALopezMERYL GIORDANO Luh CMRN: [id number] Room: [address] [place] [address] SSN: [id number] IMAGING SERVICES Ordering Prov: N/A Interpretation Chest, 11/12/2007 Clinical History: Respiratory abnormality and previous cardiacsurgery. AP portable semiupright view of the chest on 11/12/2007 at 0515 hoursis compared to 11/11/2007. The patient has been extubated. The patientis status post median sternotomy and prosthetic aortic valve. Themediastinal drainage tubes and left basilar chest tube are unchanged. ASwan-Rica catheter is noted with the tip projected over the right mainpulmonary artery. The heart is enlarged but stable in size. Pulmonaryvasculature is not congested. Mild retrocardiac atelectasis is noted. Lungs areotherwise clear. No effusions or pneumothoraces are evident. Impression: Interval extubation with mild left basilar atelectasis. Stable cardiomegaly. . Dictated by: JENNA MALDONADO 11/12/2007 07:52 Electronically signed by: JENNA MALDONADO11/12/2007 09:04 Transcribed: 11/12/2007 08:52 SMM Mary Arellano Jr., MD DIAGNOSTIC IMAGING GOLDY GIBSON Final Result * (ABNORMAL) POC GLUCOSE (11/12/2007 5:06 AM CDT) GLUCOSE POC 141(H) 65 - 99 mg/dL [facility] Venous blood specimen (specimen) 11/12/2007 5:06 AM CDT 11/12/2007 5:06 AM CDT Jesusita Roland MD POINT OF CARE TESTING Final Result Performing Organization Address City/[facility]/ZIP Co de Phone Number [facility] [address] [place] [place] [address] * (ABNORMAL) POC GLUCOSE (11/12/2007 4:24 AM CDT) GLUCOSE POC 110(H) 65 - 99 mg/dL [facility] Venous blood specimen (specimen) 11/12/2007 4:24 AM CDT 11/12/2007 4:24 AM CDT Jesusita Roland MD POINT OF CARE TESTING Final Result Performing Organization Address City/[facility]/ZIP Co de Phone Number [facility] [address] [place] [address] * (ABNORMAL) PT AND APTT (11/12/2007 4:15 AM CDT) INR 1.3(H) 0.9 - 1.1 [facility] Comment: INR Therapeutic Range: Adult: 2.0 - 3.0 for pulmonary embolism or prophylaxis against venous thrombosis or systemic embolization. 2.0 - 3.0 for patients with tissue heart valves. 2.5 - 3.5 for patients with mechanical heart valves or post NH. Pediatric (12 years and under): 1.5 - 3.0 Although the target range in children is not well established, INR values of 1.5 - 3.0 are recommended for most patients. Higher values have been used in children with prosthetic cardiac valves and hereditary clotting disorders. (<3 days) therapeutic ranges have not been established. PROTIME 16.3(H) 12.7 - 15.1 Seconds [facility] PTT 26.9 24.4 - 36.4 Seconds [facility] Comment: PTT Therapeutic Range: Heparin Level PTT (seconds) <0.10 units/mL <53 0.10 - 0.30 units/mL 53 - 67 0.30 - 0.70 units/mL* 67 - 95* 0.70 - 1.00 units/mL 95 - 116 *corresponds to therapeutic range for unfractionated heparin Blood specimen (specimen) 11/12/2007 4:15 AM CDT 11/12/2007 4:35 AM CDT Mary Arellano Jr., MD HEMATOLOGY ORDERABLES E dited [facility] [address] [facility] [place] [address] * (ABNORMAL) COMPREHENSIVE METABOLIC PANEL (11/12/2007 4:15 AM CDT) ALKALINE PHOSPHATASE 35(L) 40 - 129 U/L [facility] BILIRUBIN TOTAL 0.5 0.2 - 1.0 mg/dL [facility] CO2 22 22 - 30 mmol/L [facility] TOTAL PROTEIN 5.5(L) 6.3 - 8.6 g/dL [facility] POTASSIUM 4.8 3.5 - 4.9 mmol/L [facility] Comment: Slight hemolysis present. Result may be falsely elevated. GLUCOSE 144(H) 65 - 99 mg/dL [facility] AST 44(H) 12 - 38 U/L [facility] Comment: Hemolyzed: Result may be falsely elevated. BUN 14 6 - 20 mg/dL [facility] CALCIUM 7.8(L) 8.4 - 10.2 mg/dL [facility] CHLORIDE 108 96 - 108 mmol/L [facility] ALBUMIN 3.2(L) 3.4 - 4.8 g/dL [facility] CREATININE 0.89 0.67 - 1.17 mg/dL [facility] SODIUM 139 135 - 145 mmol/L [facility] ALT 25 0 - 41 U/L [facility] GFR, >60 >=60 mL/min/1. 7 sq meter [facility] GFR >60 >=60 mL/min/1. 7 sq meter [facility] Comment: Estimated GFR rate interpretative information for both Americans and non- Americans is available on the [facility] Intranet at: [email or web address] Select: Lab Policies and Procedures Select: Reference Ranges - GFR Blood specimen (specimen) 11/12/2007 4:15 AM CDT 11/12/2007 4:35 AM CDT Mary Arellano Jr., MD CHEMISTRY ORDERABLES Ed ited [facility] [address] [facility] [place] [address] * (ABNORMAL) CVR ONLY, CKMB/CK (11/12/2007 4:15 AM CDT) CKMB 18.2(AA) <=6.7 ng/mL [facility] Comment: Persistent abnormal result CKMB INTERP See Below [facility] Comment: Elevated CKMB,Consistent with Myocardial Injury CK 326(H) 10 - 170 U/L [facility] Comment: Hemolyzed: Result may be falsely elevated. CARDIAC RELATIVE INDEX 5.6(H) <=4.0 [facility] Blood specimen (specimen) 11/12/2007 4:15 AM CDT 11/12/2007 4:35 AM CDT Mary Arellano Jr., MD CHEMISTRY ORDERABLES Ed ited [facility] [address] [place] [address] * (ABNORMAL) CBC WITH DIFFERENTIAL (11/12/2007 4:15 AM CDT) MCV 98.6 82.0 - 99.0 fL [facility] HEMOGLOBIN 15.9 13.6 - 16.5 g/dL [facility] RDW 13.1 11.5 - 14.5 % [facility] WBC 18.2(H) 4.0 - 9.8 K/uL [facility] MCH 32.9(H) 27.2 - 32.6 pg [facility] HEMATOCRIT 47.7 40.0 - 48.0 % [facility] RDW-STDEV 47.1 37.1 - 48.7 fL [facility] RBC 4.84 4.50 - 5.40 M/uL [facility] MCHC 33.3 31.5 - 35.5 % [facility] EOSINOPHILS 0 0 - 7 % [facility] EOSINOPHIL ABSOLUTE 0.00 0.00 - 0.70 K/uL [facility] LYMPHOCYTES 3(L) 16 - 45 % [facility] LYMPHOCYTE ABSOLUTE 0.52(L) 0.70 - 4.50 K/uL [facility] BASOPHILS 0 0 - 2 % [facility] BASOPHILS ABSOLUTE 0.02 0.00 - 0.20 K/uL [facility] MONOCYTES 9 3 - 13 % [facility] MONOCYTE ABSOLUTE 1.70(H) 0.10 - 1.30 K/uL [facility] NEUTROPHILS 88(H) 45 - 70 % [facility] NEUTROPHIL ABSOLUTE 15.98(H) 1.90 - 7.00 K/uL [facility] PLATELETS 81(L) 140 - 350 K/uL [facility] Comment: Platelets verified by smear review. MPV 12.7(H) 9.3 - 12.4 fL [facility] Blood specimen (specimen) 11/12/2007 4:15 AM CDT 11/12/2007 4:35 AM CDT Mary Arellano Jr., MD HEMATOLOGY ORDERABLES E dited Performing Organization Address City/[facility]/ZIP Co de Phone Number [facility] [address] [place] [address] * (ABNORMAL) POC GLUCOSE (11/12/2007 3:11 AM CDT) GLUCOSE POC 140(H) 65 - 99 mg/dL [facility] Venous blood specimen (specimen) 11/12/2007 3:11 AM CDT 11/12/2007 3:11 AM CDT Jesusita Roland MD POINT OF CARE TESTING Final Result Performing Organization Address [facility]/ZIP Co de Phone Number [facility] [address] [place] [address] * (ABNORMAL) POC GLUCOSE (11/12/2007 2:08 AM CDT) GLUCOSE POC 137(H) 65 - 99 mg/dL [facility] Venous blood specimen (specimen) 11/12/2007 2:08 AM CDT 11/12/2007 2:08 AM CDT us Jesusita Roland MD POINT OF CARE TESTING Final Result Performing Organization Address [facility] de Phone Number [facility] [address] [place], [place] [address] * (ABNORMAL) POC GLUCOSE (11/12/2007 1:00 AM CDT) GLUCOSE POC 186(H) 65 - 99 mg/dL [facility] Venous blood specimen (specimen) 11/12/2007 1:00 AM CDT 11/12/2007 1:00 AM CDT us Jesusita Roland MD POINT OF CARE TESTING Final Result Performing Organization Address [facility] de Phone Number [facility] [address] [place], [place] [address] * (ABNORMAL) POC GLUCOSE (11/12/2007 12:19 AM CDT) GLUCOSE POC 218(H) 65 - 99 mg/dL [facility] Venous blood specimen (specimen) 11/12/2007 12:19 AM CDT 11/12/2007 12:19 AM CDT us Jesusita Roland MD POINT OF CARE TESTING Final Result Performing Organization Address [facility] de Phone Number [facility] [address] [place] [address] * POTASSIUM LEVEL (11/12/2007 12:12 AM CDT) POTASSIUM 4.8 3.5 - 4.9 mmol/L [facility] Blood specimen (specimen) 11/12/2007 12:12 AM CDT 11/12/2007 12:17 AM CDT Mary Arellano Jr., MD CHEMISTRY ORDERABLES Fi nal Result Performing Organization Address [facility]/ZIP Co de Phone Number [facility] [address] [place] [address] * (ABNORMAL) POC GLUCOSE (11/11/2007 11:07 PM CDT) GLUCOSE POC 169(H) 65 - 99 mg/dL [facility] Venous blood specimen (specimen) 11/11/2007 11:07 PM CDT 11/11/2007 11:07 PM CDT Jesusita Roland MD POINT OF CARE TESTING Final Result Performing Organization Address [facility] Co de Phone Number [facility] [address] [place] [address] * (ABNORMAL) POC GLUCOSE (11/11/2007 10:21 PM CDT) GLUCOSE POC 137(H) 65 - 99 mg/dL [facility] Venous blood specimen (specimen) 11/11/2007 10:21 PM CDT 11/11/2007 10:21 PM CDT Jesusita Roland MD POINT OF CARE TESTING Final Result Performing Organization Address [facility] Co de Phone Number [facility] [address] [place] [address] * (ABNORMAL) POC RT, BLOOD GASES (11/11/2007 10:01 PM CDT) PH ARTERIAL 7.37 7.35 - 7.45 [facility] BASE EXCESS ABG -1.6 -2.0 - 3.0 mmol/L [facility] COMMENT, GASES POC RN NOTIFIED [facility] HEMATOCRIT POC 46.0 40.0 - 48.0 % [facility] O2 SAT EST ABG POC 99 95 - 99 % [facility] POTASSIUM POC 5.3(H) 3.5 - 4.9 mmol/L [facility] PCO2 ARTERIAL 41 35 - 48 mm Hg [facility] FIO2 40 [facility] HCO3 ARTERIAL 24 22 - 26 mmol/L [facility] PATIENT'S TEMPERATURE 37.0 Degree C [facility] CALICUM IONIZED, WHOLE BLOOD 4.33(L) 4.76 - 5.16 mg/dL [facility] PEEP POC 5 [facility] PO2 ARTERIAL 137(H) 83 - 108 mm Hg [facility] SODIUM POC 131(L) 135 - 145 mmol/L [facility] OXYGEN MODE SIMV [facility] Blood specimen (specimen) 11/11/2007 10:01 PM CDT 11/11/2007 10:01 PM CDT Jesusita Roland MD CHEMISTRY ORDERABLES Final R esult Performing Organization Address City/[facility]/ZIP Co de Phone Number [facility] [address] [facility] [place] [address] * (ABNORMAL) POC GLUCOSE (11/11/2007 9:11 PM CDT) GLUCOSE POC 166(H) 65 - 99 mg/dL [facility] Venous blood specimen (specimen) 11/11/2007 9:11 PM CDT 11/11/2007 9:11 PM CDT Jesusita Roland MD POINT OF CARE TESTING Final Result [facility] [address] [place] [place] [address] * (ABNORMAL) POC GLUCOSE (11/11/2007 8:02 PM CDT) GLUCOSE POC 127(H) 65 - 99 mg/dL [facility] Venous blood specimen (specimen) 11/11/2007 8:02 PM CDT 11/11/2007 8:02 PM CDT Jesusita Roland MD POINT OF CARE TESTING Final Result Performing Organization Address [facility] Co de Phone Number [facility] [address] [place] [address] * (ABNORMAL) POTASSIUM LEVEL (11/11/2007 7:55 PM CDT) POTASSIUM 5.2(H) 3.5 - 4.9 mmol/L [facility] Comment: No significant hemolysis Blood specimen (specimen) 11/11/2007 7:55 PM CDT 11/11/2007 8:04 PM CDT Mary Arellano Jr., MD CHEMISTRY ORDERABLES Fi nal Result Performing Organization Address [facility] Co de Phone Number [facility] [address] [place] [address] * (ABNORMAL) POC RT, BLOOD GASES (11/11/2007 5:30 PM CDT) POTASSIUM POC 4.4 3.5 - 4.9 mmol/L [facility] PCO2 ARTERIAL 45 35 - 48 mm Hg [facility] FIO2 60 [facility] HCO3 ARTERIAL 25 22 - 26 mmol/L [facility] PATIENT'S TEMPERATURE 37.0 Degree C [facility] CALICUM IONIZED, WHOLE BLOOD 4.77 4.76 - 5.16 mg/dL [facility] PEEP POC 5 [facility] PO2 ARTERIAL 128(H) 83 - 108 mm Hg [facility] SODIUM POC 133(L) 135 - 145 mmol/L [facility] OXYGEN MODE SIMV/PSV [facility] PH ARTERIAL 7.36 7.35 - 7.45 [facility] BASE EXCESS ABG -0.4 -2.0 - 3.0 mmol/L [facility] COMMENT, GASES POC NOTIFIED [facility] HEMATOCRIT POC 43.0 40.0 - 48.0 % [facility] O2 SAT EST ABG POC 99 95 - 99 % [facility] Blood specimen (specimen) 11/11/2007 5:30 PM CDT 11/11/2007 5:30 PM CDT Result [facility] Jesusita Roland MD CHEMISTRY ORDERABLES Final R esult Performing Organization Address [facility]/ZIP Co de Phone Number [facility] [address] [place] [address] * (ABNORMAL) POC GLUCOSE (11/11/2007 5:23 PM CDT) GLUCOSE POC 140(H) 65 - 99 mg/dL [facility] Venous blood specimen (specimen) 11/11/2007 5:23 PM CDT 11/11/2007 5:23 PM CDT Jesusita Roland MD POINT OF CARE TESTING Final Result Performing Organization Address [facility] Co de Phone Number [facility] [address] [place] [address] * (ABNORMAL) PT AND APTT (11/11/2007 5:14 PM CDT) PROTIME 19.0(H) 12.7 - 15.1 Seconds [facility] INR 1.6(H) 0.9 - 1.1 [facility] Comment: INR Therapeutic Range: Adult: 2.0 - 3.0 for pulmonary embolism or prophylaxis against venous thrombosis or systemic embolization. 2.0 - 3.0 for patients with tissue heart valves. 2.5 - 3.5 for patients with mechanical heart valves or post NH. Pediatric (12 years and under): 1.5 - 3.0 Although the target range in children is not well established, INR values of 1.5 - 3.0 are recommended for most patients. Higher values have been used in children with prosthetic cardiac valves and hereditary clotting disorders. (<3 days) therapeutic ranges have not been established. PTT 31.1 24.4 - 36.4 Seconds [facility] Comment: PTT Therapeutic Range: Heparin Level PTT (seconds) <0.10 units/mL <53 0.10 - 0.30 units/mL 53 - 67 0.30 - 0.70 units/mL* 67 - 95* 0.70 - 1.00 units/mL 95 - 116 *corresponds to therapeutic range for unfractionated heparin PROTIME COMMENT Slightly Hemolyzed [facility] PTT COMMENT Slightly Hemolyzed [facility] Blood specimen (specimen) 11/11/2007 5:14 PM CDT 11/11/2007 5:30 PM CDT Mary Arellano Jr., MD HEMATOLOGY ORDERABLES E dited Performing Organization Address City/[facility]/ZIP Co de Phone Number [facility] [address] [place] [address] * (ABNORMAL) MAGNESIUM LEVEL (11/11/2007 5:14 PM CDT) MAGNESIUM 2.9(H) 1.5 - 2.5 mg/dL [facility] Blood specimen (specimen) 11/11/2007 5:14 PM CDT 11/11/2007 5:30 PM CDT Mary Arellano Jr., MD CHEMISTRY ORDERABLES Fi nal Result Performing Organization Address City/[facility]/ZIP Co de Phone Number [facility] [address] [place] [address] * (ABNORMAL) CVR ONLY, CKMB/CK (11/11/2007 5:14 PM CDT) Pathologist [facility] CKMB 15.8(AA) <=6.7 ng/mL [facility] Comment: Results called to Mona at 11/11/07 5:58 PM and read back verified. CKMB INTERP See Below [facility] Comment: Elevated CKMB,Consistent with Myocardial Injury. CK 156 10 - 170 U/L [facility] CARDIAC RELATIVE INDEX N/A <=4.0 [facility] Blood specimen (specimen) 11/11/2007 5:14 PM CDT 11/11/2007 5:30 PM CDT Mary Arellano Jr., MD CHEMISTRY ORDERABLES Ed ited [facility] [address] [facility] [place] [address] * (ABNORMAL) BASIC METABOLIC PANEL (11/11/2007 5:14 PM CDT) Pathologist [facility] BUN 15 6 - 20 mg/dL [facility] CHLORIDE 106 96 - 108 mmol/L [facility] GLUCOSE 142(H) 65 - 99 mg/dL [facility] SODIUM 135 135 - 145 mmol/L [facility] CALCIUM 8.2(L) 8.4 - 10.2 mg/dL [facility] CO2 22 22 - 30 mmol/L [facility] CREATININE 0.87 0.67 - 1.17 mg/dL [facility] POTASSIUM 4.5 3.5 - 4.9 mmol/L [facility] Comment: Moderate hemolysis present. Can cause significant falsely elevated result. Clinical judgement necessary. Redraw if indicated. GFR, >60 >=60 mL/min/1. 7 sq meter [facility] GFR >60 >=60 mL/min/1. 7 sq meter [facility] Comment: Estimated GFR rate interpretative information for both Americans and non- Americans is available on the [facility] Intranet at: [email or web address] Select: Lab Policies and Procedures Select: Reference Ranges - GFR Blood specimen (specimen) 11/11/2007 5:14 PM CDT 11/11/2007 5:30 PM CDT Mary Arellano Jr., MD CHEMISTRY ORDERABLES Ed ited [facility] [address] [place] [address] * (ABNORMAL) CBC WITH DIFFERENTIAL (11/11/2007 5:14 PM CDT) HEMATOCRIT 45.6 40.0 - 48.0 % [facility] RDW-STDEV 46.7 37.1 - 48.7 fL [facility] RBC 4.64 4.50 - 5.40 M/uL [facility] MCHC 33.8 31.5 - 35.5 % [facility] MCV 98.3 82.0 - 99.0 fL [facility] HEMOGLOBIN 15.4 13.6 - 16.5 g/dL [facility] RDW 13.0 11.5 - 14.5 % [facility] WBC 21.8(H) 4.0 - 9.8 K/uL [facility] MCH 33.2(H) 27.2 - 32.6 pg [facility] MPV 11.7 9.3 - 12.4 fL [facility] PLATELETS 91(L) 140 - 350 K/uL [facility] PLATELET EST. Consistent w/ count Normal [facility] BASOPHILS ABSOLUTE 0.00 0.00 - 0.20 K/uL [facility] EOSINOPHILS 0 0 - 7 % [facility] MONOCYTE ABSOLUTE 1.31(H) 0.10 - 1.30 K/uL [facility] RBC MORPHOLOGY Normal Normal [facility] LYMPHOCYTES 1(L) 16 - 45 % [facility] NEUTROPHIL ABSOLUTE 20.27(H) 1.90 - 7.00 K/uL [facility] NEUTROPHILS, SEG 88(H) 45 - 70 % [facility] BASOPHILS 0 0 - 2 % [facility] EOSINOPHIL ABSOLUTE 0.00 0.00 - 0.70 K/uL [facility] MONOCYTES 6 3 - 13 % [facility] REVIEWED ON SMEAR Plt OK by Smear Rev. [facility] LYMPHOCYTE ABSOLUTE 0.22(L) 0.70 - 4.50 K/uL [facility] BANDS 5 0 - 5 % [facility] Blood specimen (specimen) 11/11/2007 5:14 PM CDT 11/11/2007 5:30 PM CDT us Mary Arellano Jr., MD HEMATOLOGY ORDERABLES E dited [facility] [address] [place] [id number] * XR CHEST PA OR AP (11/11/2007 5:14 PM CDT) Anatomical Region Laterality Modality Chest Other 11/11/2007 5:14 PM CDT Narrative 11/11/2007 11:27 PM CDT [facility] [place] [address] [place], [place] [address] Admit Date: 11/02/2007 PATRICIA DUNHAM Sex: M Admit Prov: JESUSITA ROLAND Date: 1945 Primary Care Prov: MERYL FRIEDMAN CMRN: [id number] Room: [address] [place] [address] SSN: [id number] IMAGING SERVICES Ordering Prov: N/A Accession Number: [id number] Interpretation CHEST, AP PORTABLE, 11/11/2007, 1725 HOURS History: Cardiac surgery. Findings: Sternal wires and mediastinal drains indicate recent cardiac surgery. Prosthetic heart valve is present. Endotracheal tube ends at the clavicles. Right internal jugular [place] catheter ends in the right pulmonary artery. Right lung is clear. Left basilar atelectasis and/or small left effusion are present. There is no pneumothorax. . Dictated by: CONRADO SCHROEDER 11/11/2007 17:39 Electronically signed by: CONRADO SCHROEDER 11/11/2007 23:27 Transcribed: 11/11/2007 17:41 SMM Procedure Note Conrado Schroeder MD - 11/11/2007 [facility] [place] [address] [place], [place] [address] Admit Date: 11/02/2007 PATRICIA DUNHAM Sex: M Admit Prov: JESUSITA ROLAND Date: 1945 Primary Care Prov: MERYL FRIEDMAN CMRN: [id number] Room: [address] [place] [address] SSN: [id number] IMAGING SERVICES Ordering Prov: N/A Interpretation CHEST, AP PORTABLE, 11/11/2007, 1725 HOURS History: Cardiac surgery. Findings: Sternal wires and mediastinal drains indicate recentcardiac surgery. Prosthetic heart valve is present. Endotracheal tube ends atthe clavicles. Right internal jugular [place] catheter ends in theright pulmonary artery. Right lung is clear. Left basilar atelectasisand/or small left effusion are present. There is no pneumothorax. . Dictated by: CONRADO SCHROEDER 11/11/2007 17:39 Electronically signed by: CONRADO SCHROEDER 11/11/2007 23:27 Transcribed: 11/11/2007 17:41 S[facility] Mary Arellano Jr., MD DIAGNOSTIC IMAGING [place] Final Result * (ABNORMAL) POC RT, BLOOD GASES (11/11/2007 4:44 PM CDT) PO2 ARTERIAL 427(H) 83 - 108 mm Hg [facility] SODIUM POC 133(L) 135 - 145 mmol/L [facility] TCO2, ABG POC 26(H) 19 - 24 mmol/L [facility] PH ARTERIAL 7.36 7.35 - 7.45 [facility] BASE EXCESS ABG -1.2 -2.0 - 3.0 mmol/L [facility] HEMATOCRIT POC 35.0(L) 40.0 - 48.0 % [facility] O2 SAT EST ABG POC 100(H) 95 - 99 % [facility] LACTIC ACID 2.1 0.5 - 2.2 mmol/L [facility] POTASSIUM POC 4.3 3.5 - 4.9 mmol/L [facility] PCO2 ARTERIAL 43 35 - 48 mm Hg [facility] HCO3 ARTERIAL 24 22 - 26 mmol/L [facility] PATIENT'S TEMPERATURE 37.0 Degree C [facility] CALICUM IONIZED, WHOLE BLOOD 5.05 4.76 - 5.16 mg/dL [facility] GLUCOSE POC 176(H) 65 - 99 mg/dL [facility] Blood specimen (specimen) 11/11/2007 4:44 PM CDT 11/11/2007 4:44 PM CDT Jesusita Roland MD CHEMISTRY ORDERABLES Final R esult [facility] [address] [place] [address] * (ABNORMAL) POC RT, BLOOD GASES (11/11/2007 4:17 PM CDT) GLUCOSE POC 200(H) 65 - 99 mg/dL [facility] O2 SAT EST ABG POC 100(H) 95 - 99 % [facility] SODIUM POC 132(L) 135 - 145 mmol/L [facility] PH ARTERIAL 7.34(L) 7.35 - 7.45 [facility] TCO2, ABG POC 25(H) 19 - 24 mmol/L [facility] COMMENT, GASES POC POST BYPASS [facility] PATIENT'S TEMPERATURE 37.0 Degree C [facility] POTASSIUM POC 4.6 3.5 - 4.9 mmol/L [facility] PCO2 ARTERIAL 44 35 - 48 mm Hg [facility] LACTIC ACID 2.2 0.5 - 2.2 mmol/L [facility] CALICUM IONIZED, WHOLE BLOOD 5.21(H) 4.76 - 5.16 mg/dL [facility] BASE EXCESS ABG -2.1(L) -2.0 - 3.0 mmol/L [facility] PO2 ARTERIAL 332(H) 83 - 108 mm Hg [facility] HCO3 ARTERIAL 24 22 - 26 mmol/L [facility] HEMATOCRIT POC 34.0(L) 40.0 - 48.0 % [facility] Blood specimen (specimen) 11/11/2007 4:17 PM CDT 11/11/2007 4:17 PM CDT us Jesusita Roland MD CHEMISTRY ORDERABLES Final R esult [facility] [address] [place] [address] * (ABNORMAL) POC RT, BLOOD GASES (11/11/2007 3:56 PM CDT) PATIENT'S TEMPERATURE 37.0 Degree C [facility] LACTIC ACID 2.5(H) 0.5 - 2.2 mmol/L [facility] CALICUM IONIZED, WHOLE BLOOD 4.49(L) 4.76 - 5.16 mg/dL [facility] PO2 ARTERIAL 178(H) 83 - 108 mm Hg [facility] SODIUM POC 132(L) 135 - 145 mmol/L [facility] PH ARTERIAL 7.37 7.35 - 7.45 [facility] BASE EXCESS ABG 0.5 -2.0 - 3.0 mmol/L [facility] HEMATOCRIT POC 29.0(L) 40.0 - 48.0 % [facility] GLUCOSE POC 188(H) 65 - 99 mg/dL [facility] O2 SAT EST ABG POC 100(H) 95 - 99 % [facility] POTASSIUM POC 5.4(H) 3.5 - 4.9 mmol/L [facility] TCO2, ABG POC 27(H) 19 - 24 mmol/L [facility] PCO2 ARTERIAL 45 35 - 48 mm Hg [facility] HCO3 ARTERIAL 26 22 - 26 mmol/L [facility] COMMENT, GASES POC ON BYPASS [facility] Blood specimen (specimen) 11/11/2007 3:56 PM CDT 11/11/2007 3:56 PM CDT us Jesusita Roland MD CHEMISTRY ORDERABLES Final R esult [facility] [address] [place] [address] * (ABNORMAL) POC RT, BLOOD GASES (11/11/2007 3:46 PM CDT) PATIENT'S TEMPERATURE 37.0 Degree C [facility] LACTIC ACID 2.4(H) 0.5 - 2.2 mmol/L [facility] CALICUM IONIZED, WHOLE BLOOD 4.57(L) 4.76 - 5.16 mg/dL [facility] PO2 ARTERIAL 315(H) 83 - 108 mm Hg [facility] SODIUM POC 129(L) 135 - 145 mmol/L [facility] PH ARTERIAL 7.30(L) 7.35 - 7.45 [facility] BASE EXCESS ABG -4.6(L) -2.0 - 3.0 mmol/L [facility] HEMATOCRIT POC 29.0(L) 40.0 - 48.0 % [facility] GLUCOSE POC 196(H) 65 - 99 mg/dL [facility] O2 SAT EST ABG POC 100(H) 95 - 99 % [facility] POTASSIUM POC 5.3(H) 3.5 - 4.9 mmol/L [facility] TCO2, ABG POC 23 19 - 24 mmol/L [facility] PCO2 ARTERIAL 44 35 - 48 mm Hg [facility] HCO3 ARTERIAL 22 22 - 26 mmol/L [facility] COMMENT, GASES POC ON BYPASS [facility] Blood specimen (specimen) 11/11/2007 3:46 PM CDT 11/11/2007 3:46 PM CDT us Jesusita Roland MD CHEMISTRY ORDERABLES Final R esult [facility] [address] [place] [address] * (ABNORMAL) POC RT, BLOOD GASES (11/11/2007 3:11 PM CDT) GLUCOSE POC 204(H) 65 - 99 mg/dL [facility] PCO2 ARTERIAL 39 35 - 48 mm Hg [facility] POTASSIUM POC 5.6(H) 3.5 - 4.9 mmol/L [facility] PCO2 TEMP CORRECT 35 mm Hg [facility] TCO2, ABG POC 24 19 - 24 mmol/L [facility] PATIENT'S TEMPERATURE 34.5 Degree C [facility] HCO3 ARTERIAL 23 22 - 26 mmol/L [facility] COMMENT, GASES POC ON BYPASS [facility] PO2 ARTERIAL 239(H) 83 - 108 mm Hg [facility] PO2 TEMP CORRECT 227 mm Hg [facility] LACTIC ACID 1.5 0.5 - 2.2 mmol/L [facility] CALICUM IONIZED, WHOLE BLOOD 4.45(L) 4.76 - 5.16 mg/dL [facility] PH ARTERIAL 7.38 7.35 - 7.45 [facility] PH TEMP CORRECT 7.42 [facility] SODIUM POC 129(L) 135 - 145 mmol/L [facility] O2 SAT EST ABG POC 100(H) 95 - 99 % [facility] HEMATOCRIT POC 32.0(L) 40.0 - 48.0 % [facility] BASE EXCESS ABG -1.8 -2.0 - 3.0 mmol/L [facility] Blood specimen (specimen) 11/11/2007 3:11 PM CDT 11/11/2007 3:11 PM CDT us Jesusita Roland MD CHEMISTRY ORDERABLES Final R esult [facility] [address] [place] [address] * (ABNORMAL) POC RT, BLOOD GASES (11/11/2007 2:45 PM CDT) O2 SAT EST ABG POC 100(H) 95 - 99 % [facility] BASE EXCESS ABG -0.6 -2.0 - 3.0 mmol/L [facility] GLUCOSE POC 169(H) 65 - 99 mg/dL [facility] HEMATOCRIT POC 30.0(L) 40.0 - 48.0 % [facility] PCO2 ARTERIAL 55(H) 35 - 48 mm Hg [facility] PCO2 TEMP CORRECT 49 mm Hg [facility] TCO2, ABG POC 28(H) 19 - 24 mmol/L [facility] POTASSIUM POC 5.5(H) 3.5 - 4.9 mmol/L [facility] PATIENT'S TEMPERATURE 34.5 Degree C [facility] COMMENT, GASES POC ON BYPASS [facility] HCO3 ARTERIAL 26 22 - 26 mmol/L [facility] PO2 ARTERIAL 261(H) 83 - 108 mm Hg [facility] CALICUM IONIZED, WHOLE BLOOD 4.53(L) 4.76 - 5.16 mg/dL [facility] PO2 TEMP CORRECT 249 mm Hg [facility] LACTIC ACID 1.2 0.5 - 2.2 mmol/L [facility] PH ARTERIAL 7.29(L) 7.35 - 7.45 [facility] PH TEMP CORRECT 7.32 [facility] SODIUM POC 128(L) 135 - 145 mmol/L [facility] Blood specimen (specimen) 11/11/2007 2:45 PM CDT 11/11/2007 2:45 PM CDT Jesusita Roland MD CHEMISTRY ORDERABLES Final R esult Performing Organization Address City/[facility]/ZIP Co de Phone Number [facility] [address] [place] [address] * MISCELLANEOUS CULTURE (11/11/2007 2:45 PM CDT) PRELIMINARY REPORT No growth 48 hours [facility] FINAL REPORT No growth 3 days [facility] 11/11/2007 2:45 PM CDT 11/11/2007 5:51 PM CDT Mary Arellano Jr., MD MICROBIOLOGY - GENERAL ORDERABLES Final Result Performing Organization Address [facility] Co de Phone Number [facility] [address] [facility] [place] [address] * PATHOLOGY (11/11/2007 2:39 PM CDT) FINAL REPORT [facility] [address] [place], [place] [address] Patient: PATRICIA DUNHAM : 1945 Procedure Date: 11/11/2007 Accession Date: 11/12/2007 Case No: [id number] Ordering Dr: MARY ARELLANO Case types AW, BW, FW, NW and SH are performed by [facility], [place], [place] SURGICAL PATHOLOGY & NON-GYNECOLOGIC CYTOPATHOLOGY REPORT DIAGNOSIS AORTIC VALVE, REPLACEMENT: - FIBROSIS AND CALCIFICATIONS. AORTA, ASCENDING, EXCISION: - NONSPECIFIC ALTERATIONS. Specimen Description: (1) Aortic valve tissue; (2) ascending aorta. Operative Procedure: Aortic valve replacement. Patient Information/Histor y/Diagnosis: Aortic valve stenosis. Gross: Two containers are received labeled Patricia Dunham. Received in the first container additionally labeled aortic valve tissue, are three pieces of yellow-tatum fibromembranous tissue, 1.8, 2.7, and 3.5 cm in greatest dimension. The tissue is consistent with valve cusps. The tissue is severely calcified. Inspector Repairer sections are submitted in cassettes A1-2 for decalcification. Received in the second container, additionally labeled ascending aorta, is a 5.5-cm long by 4-cm diameter tubular piece of yellow-tatum fibromembranous tissue consistent with aorta. A dissecting aneurysm is not identified. The intimal surface is remarkable for a fatty streak. There is no evidence of calcification. Inspector Repairer sections are submitted in cassette B1. KLA/DRC 11.12.2007 12:50 pm Microscopic: The slides are labeled Patricia Aniketpineda and [id number]. The aortic valve tissue shows areas of dense fibrosis and nodular areas of coarse calcification including focal ossification. No vegetations are identified. No significant acute inflammation is identified. Sections from the ascending aorta show focal areas of mild thickening of the intima. There is fragmentation of the elastic lamella and focal areas of degenerative changes in the elastic media, but no confluent areas of necrosis, significant chronic inflammation, or significant adventitial fibrosis is identified. These features are nonspecific. JCL/DRC 11.15.2007 02:13 pm Staging Form: No. ELECTRONIC SIGNATURE FOR MARY HOWARD M.D.- 11/16/07 05:25 pm INTERFACE SYSTEM 11/11/2007 2:39 PM CDT Mary Arellano Jr., MD PATHOLOGY/CYTOLOGY GOLDY GIBSON Final Result INTERFACE SYSTEM Refer to clinic/hospital department * (ABNORMAL) POC RT, BLOOD GASES (11/11/2007 2:14 PM CDT) PCO2 TEMP CORRECT 34 mm Hg [facility] PATIENT'S TEMPERATURE 34.5 Degree C [facility] PO2 ARTERIAL 346(H) 83 - 108 mm Hg [facility] SODIUM POC 133(L) 135 - 145 mmol/L [facility] GLUCOSE POC 117(H) 65 - 99 mg/dL [facility] PH ARTERIAL 7.42 7.35 - 7.45 [facility] PO2 TEMP CORRECT 333 mm Hg [facility] TCO2, ABG POC 26(H) 19 - 24 mmol/L [facility] POTASSIUM POC 5.0(H) 3.5 - 4.9 mmol/L [facility] HEMATOCRIT POC 31.0(L) 40.0 - 48.0 % [facility] CALICUM IONIZED, WHOLE BLOOD 4.57(L) 4.76 - 5.16 mg/dL [facility] O2 SAT EST ABG POC 100(H) 95 - 99 % [facility] HCO3 ARTERIAL 25 22 - 26 mmol/L [facility] COMMENT, GASES POC ON BYPASS [facility] PCO2 ARTERIAL 38 35 - 48 mm Hg [facility] BASE EXCESS ABG 0.2 -2.0 - 3.0 mmol/L [facility] LACTIC ACID 1.5 0.5 - 2.2 mmol/L [facility] PH TEMP CORRECT 7.46 [facility] Blood specimen (specimen) 11/11/2007 2:14 PM CDT 11/11/2007 2:14 PM CDT us Jesusita Roland MD CHEMISTRY ORDERABLES Final R esult [facility] [address] [facility] [place] [address] * (ABNORMAL) POC RT, BLOOD GASES (11/11/2007 2:07 PM CDT) PCO2 VENOUS 46 38 - 50 mm Hg [facility] PCO2 TEMP CORRECT 40 mm Hg [facility] TCO2, MVBG POC 27(H) 22 - 26 mmol/L [facility] POTASSIUM POC 5.4(H) 3.5 - 4.9 mmol/L [facility] PATIENT'S TEMPERATURE 34.0 Degree C [facility] COMMENT, GASES POC ON BYPASS [facility] HCO3 MIXED VENOUS 26 22 - 29 mmol/L [facility] PO2 MVBG 58(H) 25 - 40 mm Hg [facility] CALICUM IONIZED, WHOLE BLOOD 4.57(L) 4.76 - 5.16 mg/dL [facility] PO2 TEMP CORRECT 47 mm Hg [facility] LACTIC ACID 1.6 0.5 - 2.2 mmol/L [facility] PH MVBG 7.36 7.32 - 7.43 [facility] PH TEMP CORRECT 7.40 [facility] SODIUM POC 134(L) 135 - 145 mmol/L [facility] O2 SAT EST MVBG POC 89(H) 40 - 70 % [facility] BASE EXCESS VENOUS 0.3 -2.0 - 3.0 mmol/L [facility] GLUCOSE POC 110(H) 65 - 99 mg/dL [facility] HEMATOCRIT POC 30.0(L) 40.0 - 48.0 % [facility] Blood specimen (specimen) 11/11/2007 2:07 PM CDT 11/11/2007 2:07 PM CDT us Jesusita Roland MD CHEMISTRY ORDERABLES Final R esult [facility] [address] [place] [address] * (ABNORMAL) POC RT, BLOOD GASES (11/11/2007 1:50 PM CDT) PATIENT'S TEMPERATURE 37.0 Degree C [facility] GLUCOSE POC 116(H) 65 - 99 mg/dL [facility] CALICUM IONIZED, WHOLE BLOOD 4.53(L) 4.76 - 5.16 mg/dL [facility] PO2 ARTERIAL 476(H) 83 - 108 mm Hg [facility] TCO2, ABG POC 27(H) 19 - 24 mmol/L [facility] SODIUM POC 134(L) 135 - 145 mmol/L [facility] PH ARTERIAL 7.39 7.35 - 7.45 [facility] BASE EXCESS ABG 0.8 -2.0 - 3.0 mmol/L [facility] HEMATOCRIT POC 40.0 40.0 - 48.0 % [facility] O2 SAT EST ABG POC 100(H) 95 - 99 % [facility] POTASSIUM POC 4.2 3.5 - 4.9 mmol/L [facility] LACTIC ACID 1.3 0.5 - 2.2 mmol/L [facility] PCO2 ARTERIAL 43 35 - 48 mm Hg [facility] HCO3 ARTERIAL 26 22 - 26 mmol/L [facility] Blood specimen (specimen) 11/11/2007 1:50 PM CDT 11/11/2007 1:50 PM CDT us Jesusita Roland MD CHEMISTRY ORDERABLES Final R esult [facility] [address] [facility] [place] [address] * (ABNORMAL) POC RT, BLOOD GASES (11/11/2007 12:52 PM CDT) COMMENT, GASES POC POST INDUCTION [facility] HCO3 ARTERIAL 27(H) 22 - 26 mmol/L [facility] PATIENT'S TEMPERATURE 37.0 Degree C [facility] CALICUM IONIZED, WHOLE BLOOD 4.57(L) 4.76 - 5.16 mg/dL [facility] LACTIC ACID 0.9 0.5 - 2.2 mmol/L [facility] PO2 ARTERIAL 487(H) 83 - 108 mm Hg [facility] SODIUM POC 134(L) 135 - 145 mmol/L [facility] PH ARTERIAL 7.40 7.35 - 7.45 [facility] BASE EXCESS ABG 1.4 -2.0 - 3.0 mmol/L [facility] GLUCOSE POC 119(H) 65 - 99 mg/dL [facility] HEMATOCRIT POC 47.0 40.0 - 48.0 % [facility] O2 SAT EST ABG POC 100(H) 95 - 99 % [facility] TCO2, ABG POC 28(H) 19 - 24 mmol/L [facility] POTASSIUM POC 4.0 3.5 - 4.9 mmol/L [facility] PCO2 ARTERIAL 43 35 - 48 mm Hg [facility] Blood specimen (specimen) 11/11/2007 12:52 PM CDT 11/11/2007 12:52 PM CDT Jesusita Roland MD CHEMISTRY ORDERABLES Final R esult Performing Organization Address City/[facility]/ZIP Co de Phone Number [facility] [address] [place] [address] * (ABNORMAL) POC GLUCOSE (11/11/2007 7:03 AM CDT) GLUCOSE POC 116(H) 65 - 99 mg/dL [facility] Venous blood specimen (specimen) 11/11/2007 7:03 AM CDT 11/11/2007 7:03 AM CDT us Jesusita Roland MD POINT OF CARE TESTING Final Result [facility] [address] [place] [address] * (ABNORMAL) POC GLUCOSE (11/10/2007 8:15 PM CDT) GLUCOSE POC 131(H) 65 - 99 mg/dL [facility] Venous blood specimen (specimen) 11/10/2007 8:15 PM CDT 11/10/2007 8:15 PM CDT Jesusita Roland MD POINT OF CARE TESTING Final Result [facility] [address] [place] [address] * (ABNORMAL) POC GLUCOSE (11/10/2007 5:28 PM CDT) GLUCOSE POC 100(H) 65 - 99 mg/dL [facility] Venous blood specimen (specimen) 11/10/2007 5:28 PM CDT 11/10/2007 5:28 PM CDT Jesusita Roland MD POINT OF CARE TESTING Final Result Performing Organization Address City/[facility]/ZIP Co de Phone Number [facility] [address] [address] * (ABNORMAL) POC GLUCOSE (11/10/2007 11:41 AM CDT) GLUCOSE POC 184(H) 65 - 99 mg/dL [facility] Venous blood specimen (specimen) 11/10/2007 11:41 AM CDT 11/10/2007 11:41 AM CDT us Jesusita Roland MD POINT OF CARE TESTING Final Result Performing Organization Address City/[facility]/ZIP Co de Phone Number [facility] [address] [place] [address] * (ABNORMAL) POC GLUCOSE (11/10/2007 7:36 AM CDT) GLUCOSE POC 108(H) 65 - 99 mg/dL [facility] Venous blood specimen (specimen) 11/10/2007 7:36 AM CDT 11/10/2007 7:36 AM CDT us Jesusita Roland MD POINT OF CARE TESTING Final Result Performing Organization Address City/[facility]/ZIP Co de Phone Number [facility] [address] [place] [phone] * (ABNORMAL) POC GLUCOSE (11/09/2007 8:15 PM CDT) GLUCOSE POC 170(H) 65 - 99 mg/dL [facility] Venous blood specimen (specimen) 11/09/2007 8:15 PM CDT 11/09/2007 8:15 PM CDT Jesusita Roland MD POINT OF CARE TESTING Final Result Performing Organization Address [facility] Co de Phone Number [facility] [address] [place] [address] * (ABNORMAL) POC GLUCOSE (11/09/2007 5:51 PM CDT) GLUCOSE POC 151(H) 65 - 99 mg/dL [facility] Venous blood specimen (specimen) 11/09/2007 5:51 PM CDT 11/09/2007 5:51 PM CDT us Jesusita Roland MD POINT OF CARE TESTING Final Result Performing Organization Address City/[facility]/ZIP Co de Phone Number [facility] [address] [place] [id number] * (ABNORMAL) POC GLUCOSE (11/09/2007 11:34 AM CDT) GLUCOSE POC 146(H) 65 - 99 mg/dL [facility] Venous blood specimen (specimen) 11/09/2007 11:34 AM CDT 11/09/2007 11:34 AM CDT Jesusita Roland MD POINT OF CARE TESTING Final Result Performing Organization Address City/[facility]/ZIP Co de Phone Number [facility] [address] [place] [address] * (ABNORMAL) POC GLUCOSE (11/09/2007 8:35 AM CDT) GLUCOSE POC 111(H) 65 - 99 mg/dL [facility] Venous blood specimen (specimen) 11/09/2007 8:35 AM CDT 11/09/2007 8:35 AM CDT Jesusita Roland MD POINT OF CARE TESTING Final Result Performing Organization Address [facility] Co de Phone Number [facility] [address] [place] [address] * XR CHEST PA AND LATERAL (11/09/2007 7:32 AM CDT) Anatomical Region Laterality Modality Chest Other 11/09/2007 7:32 AM CDT Narrative 11/09/2007 10:56 AM CDT Ordered by SOFYA PRINCE [facility] [address] [place], [place] [address] Admit Date: 11/02/2007 PATRICIA DUNHAM Sex: M Admit Prov: JESUSITA ROLAND Date: 1945 Primary Care Prov: MERYL FRIEDMAN CMRN: [id number] Room: [address] [place] [address] SSN: [id number] IM[facility] SERVICES Ordering Prov: N/A Accession Number: [id number] Interpretation Exam: Chest x-ray PA and lateral. 11/09/2007 History: Respiratory symptoms. CHF. Exam is compared to prior exam dated 11/02/07. Heart is decreased in size. Mediastinum is unremarkable and is not different. Bilateral infiltrates particularly on the left are improved. Pleural effusions are also improved. No new infiltrate or other changes are seen. Impression: Heart is decreased in size. Bilateral infiltrates and pleural effusions are improved. . Dictated by: NANCY RIOS 11/09/2007 07:45 Electronically signed by: NANCY RIOS 11/09/2007 10:56 Transcribed: 11/09/2007 09:44 AMK Procedure Note Nancy Rios - 11/09/2007 Ordered by SOFYA PRINCE [facility] [place] [address] [place], [place] [address] Admit Date: 11/02/2007 PATRICIA DUNHAM Sex: M Admit Prov: JESUSITA ROLADN Date: 1945 Primary Care Prov: MERYL FRIEDMAN CMRN: [id number] Room: [address] [place] [address] SSN: [id number] IMAGING SERVICES Ordering Prov: N/A Interpretation Exam: Chest x-ray PA and lateral. 11/09/2007 History: Respiratory symptoms. CHF. Exam is compared to prior exam dated 11/02/07. Heart is decreased in size. Mediastinum is unremarkable and is not different. Bilateral infiltrates particularly on the left areimproved. Pleural effusions are also improved. No new infiltrate or otherchanges are seen. Impression: Heart is decreased in size. Bilateral infiltrates andpleural effusions are improved. . Dictated by: NANCY RIOS 11/09/2007 07:45 Electronically signed by: NANCY RIOS 11/09/2007 10:56 Transcribed: 11/09/2007 09:44 AMK us Historical Provider DIAGNOSTIC IMAGING ORDERABLE S Final Result * (ABNORMAL) DIGOXIN LEVEL (11/09/2007 5:45 AM CDT) DIGOXIN LEVEL 0.7(L) 0.8 - 2.0 ng/mL [facility] Comment:Digoxin Toxic Level = >2.0 ng/mL Blood specimen (specimen) 11/09/2007 5:45 AM CDT 11/09/2007 6:23 AM CDT us Sofya HAMM CHEMISTRY ORDERABLES Final Res ult [facility] [address] [place] [address] * (ABNORMAL) COMPREHENSIVE METABOLIC PANEL (11/09/2007 5:45 AM CDT) CO2 25 22 - 30 mmol/L [facility] TOTAL PROTEIN 6.5 6.3 - 8.6 g/dL [facility] SODIUM 136 135 - 145 mmol/L [facility] POTASSIUM 3.9 3.5 - 4.9 mmol/L [facility] GLUCOSE 115(H) 65 - 99 mg/dL [facility] AST 28 12 - 38 U/L [facility] BUN 18 6 - 20 mg/dL [facility] CALCIUM 8.4 8.4 - 10.2 mg/dL [facility] ALBUMIN 3.6 3.4 - 4.8 g/dL [facility] CHLORIDE 102 96 - 108 mmol/L [facility] CREATININE 0.98 0.67 - 1.17 mg/dL [facility] ALT 35 0 - 41 U/L [facility] ALKALINE PHOSPHATASE 44 40 - 129 U/L [facility] BILIRUBIN TOTAL 0.6 0.2 - 1.0 mg/dL [facility] GFR, >60 >=60 mL/min/1. 7 sq meter [facility] GFR >60 >=60 mL/min/1. 7 sq meter [facility] Comment: Estimated GFR rate interpretative information for both Americans and non- Americans is available on the [facility] Intranet at: [email or web address] Select: Lab Policies and Procedures Select: Reference Ranges - GFR Blood specimen (specimen) 11/09/2007 5:45 AM CDT 11/09/2007 6:23 AM CDT Sofya HAMM CHEMISTRY ORDERABLES Edited [facility] [address] [facility] [address] [place] [address] * (ABNORMAL) CBC WITH DIFFERENTIAL (11/09/2007 5:45 AM CDT) WBC 9.8 4.0 - 9.8 K/uL [facility] MCH 32.9(H) 27.2 - 32.6 pg [facility] MPV 11.3 9.3 - 12.4 fL [facility] HEMATOCRIT 49.5(H) 40.0 - 48.0 % [facility] RDW-STDEV 47.2 37.1 - 48.7 fL [facility] RBC 5.02 4.50 - 5.40 M/uL [facility] MCHC 33.3 31.5 - 35.5 % [facility] MCV 98.6 82.0 - 99.0 fL [facility] PLATELETS 172 140 - 350 K/uL [facility] HEMOGLOBIN 16.5 13.6 - 16.5 g/dL [facility] RDW 13.1 11.5 - 14.5 % [facility] LYMPHOCYTE ABSOLUTE 1.84 0.70 - 4.50 K/uL [facility] BASOPHILS 0 0 - 2 % [facility] BASOPHILS ABSOLUTE 0.03 0.00 - 0.20 K/uL [facility] MONOCYTES 12 3 - 13 % [facility] MONOCYTE ABSOLUTE 1.17 0.10 - 1.30 K/uL [facility] NEUTROPHILS 67 45 - 70 % [facility] NEUTROPHIL ABSOLUTE 6.50 1.90 - 7.00 K/uL [facility] EOSINOPHILS 2 0 - 7 % [facility] EOSINOPHIL ABSOLUTE 0.21 0.00 - 0.70 K/uL [facility] LYMPHOCYTES 19 16 - 45 % [facility] Blood specimen (specimen) 11/09/2007 5:45 AM CDT 11/09/2007 6:23 AM CDT Sofya HAMM HEMATOLOGY ORDERABLES Edited INTERFACE SYSTEM Refer to clinic/hospital department [facility] [address] [place] [address] * (ABNORMAL) URINALYSIS (11/09/2007 4:10 AM CDT) LEUKOCYTE ESTERASE UA Negative Negative [facility] RBC UA 1 0 - 3 /HPF [facility] SPECIFIC GRAVITY UA 1.044(H) 1.001 - 1.035 [facility] Comment: Results confirmed by 2nd methodology. BLOOD UA Negative Negative [facility] GLUCOSE UA 3+(A) Negative [facility] Comment: Verified by repeat analysis. COLOR UA Yellow [facility] NITRITE UA Negative Negative [facility] UROBILINOGEN UA 4(H) <=1 mg/dL [facility] Comment: Verified by repeat analysis. EPITHELIAL CELLS, URINE 0-2 /HPF [facility] PH UA 6.0 5.0 - 8.0 [facility] KETONES UA 1+(A) Negative [facility] WBC UA 1 0 - 3 /HPF [facility] CLARITY UA Clear Clear [facility] PROTEIN UA Trace(A) Negative [facility] BILIRUBIN UA Negative Negative [facility] 11/09/2007 4:10 AM CDT 11/09/2007 4:36 AM CDT us James Hopkins MD URINE ORDERABLES Final Result Performing Organization Address [facility] Co de Phone Number [facility] [address] [place] [address] * URINALYSIS WITH REFLEX CULTURE (11/09/2007 4:10 AM CDT) URINE CULTURE ORDER Not indicated [facility] Comment: Criteria for a reflex culture include one or more of the following: Abnormal nitrite, leukocyte esterase, WBCs or RBCs. Lack of qualifying criteria does not exclude the possiblity of a urinary tract infection. Dilute urine, drug interference, etc. may decrease the sensitivity of the criteria analytes. Urine, clean catch 11/09/2007 4:10 AM CDT 11/09/2007 4:36 AM CDT us James Hopkins MD URINE ORDERABLES Final Result Performing Organization Address [facility] Co de Phone Number [facility] [address] [place] [address] * (ABNORMAL) POC GLUCOSE (11/08/2007 8:21 PM CDT) GLUCOSE POC 142(H) 65 - 99 mg/dL [facility] Venous blood specimen (specimen) 11/08/2007 8:21 PM CDT 11/08/2007 8:21 PM CDT Jesusita Roland MD POINT OF CARE TESTING Final Result Performing Organization Address [facility] Co de Phone Number [facility] [address] [place] [address] * (ABNORMAL) POC GLUCOSE (11/08/2007 4:56 PM CDT) GLUCOSE POC 100(H) 65 - 99 mg/dL [facility] Venous blood specimen (specimen) 11/08/2007 4:56 PM CDT 11/08/2007 4:56 PM CDT us Jesusita Roland MD POINT OF CARE TESTING Final Result Performing Organization Address City/[facility]/ZIP Co de Phone Number [facility] [address] [place] [address] * (ABNORMAL) POC GLUCOSE (11/08/2007 11:39 AM CDT) GLUCOSE POC 112(H) 65 - 99 mg/dL [facility] Venous blood specimen (specimen) 11/08/2007 11:39 AM CDT 11/08/2007 11:39 AM CDT us Jesusita Roland MD POINT OF CARE TESTING Final Result Performing Organization Address [facility]/ZIP Co de Phone Number [facility] [address] [place] [address] * POC GLUCOSE (11/08/2007 7:22 AM CDT) GLUCOSE POC 93 65 - 99 mg/dL [facility] Venous blood specimen (specimen) 11/08/2007 7:22 AM CDT 11/08/2007 7:22 AM CDT us Jesusita Roland MD POINT OF CARE TESTING Final Result Performing Organization Address City/[facility]/ZIP Co de Phone Number [facility] [address] [address] * (ABNORMAL) POC GLUCOSE (11/07/2007 8:42 PM CDT) COMMENT, GLU POC Notified RN [facility] GLUCOSE POC 149(H) 65 - 99 mg/dL [facility] Venous blood specimen (specimen) 11/07/2007 8:42 PM CDT 11/07/2007 8:42 PM CDT us Jesusita Roland MD POINT OF CARE TESTING Final Result Performing Organization Address City/[facility]/ZIP Co de Phone Number [facility] [address] [place] [address] * (ABNORMAL) POC GLUCOSE (11/07/2007 4:44 PM CDT) GLUCOSE POC 137(H) 65 - 99 mg/dL [facility] Venous blood specimen (specimen) 11/07/2007 4:44 PM CDT 11/07/2007 4:44 PM CDT us Jesusita Roland MD POINT OF CARE TESTING Final Result Performing Organization Address [facility] Co de Phone Number [facility] [address] [place] [address] * POC GLUCOSE (11/07/2007 11:38 AM CDT) GLUCOSE POC 84 65 - 99 mg/dL [facility] Venous blood specimen (specimen) 11/07/2007 11:38 AM CDT 11/07/2007 11:38 AM CDT us Jesusita Roland MD POINT OF CARE TESTING Final Result Performing Organization Address City/[facility] Co de Phone Number [facility] [address] [place] [address] * DIGOXIN LEVEL (11/07/2007 9:18 AM CDT) DIGOXIN LEVEL 1.4 0.8 - 2.0 ng/mL [facility] Comment:Digoxin Toxic Level = >2.0 ng/mL Blood specimen (specimen) 11/07/2007 9:18 AM CDT 11/07/2007 9:36 AM CDT Domingo Teran MD CHEMISTRY ORDERABLES Final R esult Performing Organization Address City/[facility] Co de Phone Number [facility] [address] [place] [address] * (ABNORMAL) PROTIME-INR (11/07/2007 9:18 AM CDT) PROTIME 15.4(H) 12.7 - 15.1 Seconds [facility] INR 1.2(H) 0.9 - 1.1 [facility] Comment: INR Therapeutic Range: Adult: 2.0 - 3.0 for pulmonary embolism or prophylaxis against venous thrombosis or systemic embolization. 2.0 - 3.0 for patients with tissue heart valves. 2.5 - 3.5 for patients with mechanical heart valves or post NH. Pediatric (12 years and under): 1.5 - 3.0 Although the target range in children is not well established, INR values of 1.5 - 3.0 are recommended for most patients. Higher values have been used in children with prosthetic cardiac valves and hereditary clotting disorders. (<3 days) therapeutic ranges have not been established. Blood specimen (specimen) 11/07/2007 9:18 AM CDT 11/07/2007 9:36 AM CDT us Domingo Teran MD HEMATOLOGY ORDERABLES Final Result Performing Organization Address City/[facility]/ZIP Co de Phone Number [facility] [address] [place] [address] * (ABNORMAL) BASIC METABOLIC PANEL (11/07/2007 9:18 AM CDT) CREATININE 1.00 0.67 - 1.17 mg/dL [facility] POTASSIUM 4.1 3.5 - 4.9 mmol/L [facility] BUN 15 6 - 20 mg/dL [facility] CHLORIDE 102 96 - 108 mmol/L [facility] GLUCOSE 186(H) 65 - 99 mg/dL [facility] SODIUM 139 135 - 145 mmol/L [facility] CALCIUM 9.1 8.4 - 10.2 mg/dL [facility] CO2 27 22 - 30 mmol/L [facility] GFR, >60 >=60 mL/min/1. 7 sq meter [facility] GFR >60 >=60 mL/min/1. 7 sq meter [facility] Comment: Estimated GFR rate interpretative information for both Americans and non- Americans is available on the [facility] Intranet at: [email or web address] Select: Lab Policies and Procedures Select: Reference Ranges - GFR Blood specimen (specimen) 11/07/2007 9:18 AM CDT 11/07/2007 9:36 AM CDT Domingo Teran MD CHEMISTRY ORDERABLES Edited [facility] [address] [place] [address] * POC GLUCOSE (11/07/2007 7:22 AM CDT) GLUCOSE POC 87 65 - 99 mg/dL [facility] Venous blood specimen (specimen) 11/07/2007 7:22 AM CDT 11/07/2007 7:22 AM CDT Jesusita Roland MD POINT OF CARE TESTING Final Result Performing Organization Address City/[facility]/ZIP Co de Phone Number [facility] [address] [place] [address] * POC GLUCOSE (11/06/2007 8:53 PM CDT) GLUCOSE POC 93 65 - 99 mg/dL [facility] Venous blood specimen (specimen) 11/06/2007 8:53 PM CDT 11/06/2007 8:53 PM CDT Jesusita Roland MD POINT OF CARE TESTING Final Result [facility] [address] [place] [address] * POC GLUCOSE (11/06/2007 4:42 PM CDT) GLUCOSE POC 95 65 - 99 mg/dL [facility] Venous blood specimen (specimen) 11/06/2007 4:42 PM CDT 11/06/2007 4:42 PM CDT Jesusita Roland MD POINT OF CARE TESTING Final Result Performing Organization Address City/[facility]/ZIP Co de Phone Number [facility] [address] [place] [address] * POC GLUCOSE (11/06/2007 11:32 AM CDT) GLUCOSE POC 96 65 - 99 mg/dL [facility] Venous blood specimen (specimen) 11/06/2007 11:32 AM CDT 11/06/2007 11:32 AM CDT us Jesusita Roland MD POINT OF CARE TESTING Final Result Performing Organization Address City/[facility]/ZIP Co de Phone Number [facility] [address] [place] [address] * (ABNORMAL) POC GLUCOSE (11/06/2007 7:27 AM CDT) GLUCOSE POC 108(H) 65 - 99 mg/dL [facility] Venous blood specimen (specimen) 11/06/2007 7:27 AM CDT 11/06/2007 7:27 AM CDT Jesusita Roland MD POINT OF CARE TESTING Final Result Performing Organization Address City/[facility]/ZIP Co de Phone Number [facility] [address] [place] [address] * (ABNORMAL) POC GLUCOSE (11/05/2007 8:02 PM CDT) GLUCOSE POC 160(H) 65 - 99 mg/dL [facility] Venous blood specimen (specimen) 11/05/2007 8:02 PM CDT 11/05/2007 8:02 PM CDT Jesusita Roland MD POINT OF CARE TESTING Final Result Performing Organization Address City/[facility]/ZIP Co de Phone Number [facility] [address] [place] [address] * POC GLUCOSE (11/05/2007 4:54 PM CDT) [facility] Signature GLUCOSE POC 91 65 - 99 mg/dL [facility] Venous blood specimen (specimen) 11/05/2007 4:54 PM CDT 11/05/2007 4:54 PM CDT Jesusita Roland MD POINT OF CARE TESTING Final Result Performing Organization Address City/[facility]/ZIP Co de Phone Number [facility] [address] [place] [address] * (ABNORMAL) HEMOGLOBIN A1C (11/05/2007 3:37 PM CDT) GLUCOSE, MEAN BLOOD 161 mg/dL [facility] HEMOGLOBIN A1C 6.7(H) 4.1 - 6.1 % of Hgb [facility] Blood specimen (specimen) 11/05/2007 3:37 PM CDT 11/05/2007 3:49 PM CDT Kandis Vásquez MD CHEMISTRY ORDERABLES Final Result Performing Organization Address [facility] Co de Phone Number [facility] [address] [place] [address] * (ABNORMAL) POC GLUCOSE (11/05/2007 11:30 AM CDT) GLUCOSE POC 62(L) 65 - 99 mg/dL [facility] Venous blood specimen (specimen) 11/05/2007 11:30 AM CDT 11/05/2007 11:30 AM CDT Jesusita Roland MD POINT OF CARE TESTING Final Result Performing Organization Address [facility] Co de Phone Number [facility] [address] [place] [address] * POC GLUCOSE (11/05/2007 7:41 AM CDT) GLUCOSE POC 88 65 - 99 mg/dL [facility] Venous blood specimen (specimen) 11/05/2007 7:41 AM CDT 11/05/2007 7:41 AM CDT Jesusita Roland MD POINT OF CARE TESTING Final Result Performing Organization Address City/[facility] Co de Phone Number [facility] [address] [place] [address] * (ABNORMAL) BASIC METABOLIC PANEL (11/05/2007 4:30 AM CDT) BUN 19 6 - 20 mg/dL [facility] CHLORIDE 101 96 - 108 mmol/L [facility] GLUCOSE 104(H) 65 - 99 mg/dL [facility] SODIUM 138 135 - 145 mmol/L [facility] CALCIUM 8.4 8.4 - 10.2 mg/dL [facility] CO2 26 22 - 30 mmol/L [facility] CREATININE 1.04 0.67 - 1.17 mg/dL [facility] POTASSIUM 4.0 3.5 - 4.9 mmol/L [facility] GFR, >60 >=60 mL/min/1. 7 sq meter [facility] GFR >60 >=60 mL/min/1. 7 sq meter [facility] Comment: Estimated GFR rate interpretative information for both Americans and non- Americans is available on the [facility] Intranet at: [email or web address] Select: Lab Policies and Procedures Select: Reference Ranges - GFR Blood specimen (specimen) 11/05/2007 4:30 AM CDT 11/05/2007 5:22 AM CDT us Jesusita Roland MD CHEMISTRY ORDERABLES Edited [facility] [address] [place] [address] * CLOSTRIDIUM DIFFICILE TOXIN (11/04/2007 11:20 PM CDT) FINAL REPORT NO Clostridium difficile Toxin A or B detected by EIA. A negative result does not rule out C. difficile associated diarrhea or colitis. INTERFACE SYSTEM Stool specimen (specimen) 11/04/2007 11:20 PM CDT 11/05/2007 7:19 AM CDT us Kandis Vásquez MD MICROBIOLOGY - GENERAL ORD ERABLES Final Result INTERFACE SYSTEM Refer to clinic/hospital department * (ABNORMAL) POC GLUCOSE (11/04/2007 8:02 PM CDT) GLUCOSE POC 111(H) 65 - 99 mg/dL [facility] Venous blood specimen (specimen) 11/04/2007 8:02 PM CDT 11/04/2007 8:02 PM CDT Jesusita Roland MD POINT OF CARE TESTING Final Result Performing Organization Address City/[facility]/ZIP Co de Phone Number [facility] [address] [place] [address] * (ABNORMAL) POC GLUCOSE (11/04/2007 4:07 PM CDT) GLUCOSE POC 138(H) 65 - 99 mg/dL [facility] Venous blood specimen (specimen) 11/04/2007 4:07 PM CDT 11/04/2007 4:07 PM CDT Jesusita Roland MD POINT OF CARE TESTING Final Result Performing Organization Address [facility]/ZIP Co de Phone Number [facility] [address] [place] [address] * POC GLUCOSE (11/04/2007 11:35 AM CDT) GLUCOSE POC 92 65 - 99 mg/dL [facility] Venous blood specimen (specimen) 11/04/2007 11:35 AM CDT 11/04/2007 11:35 AM CDT Jesusita Roland MD POINT OF CARE TESTING Final Result Performing Organization Address City/[facility]/ZIP Co de Phone Number [facility] [address] [place] [address] * (ABNORMAL) POC GLUCOSE (11/04/2007 7:15 AM CDT) GLUCOSE POC 146(H) 65 - 99 mg/dL [facility] Venous blood specimen (specimen) 11/04/2007 7:15 AM CDT 11/04/2007 7:15 AM CDT us Jesusita Roland MD POINT OF CARE TESTING Final Result Performing Organization Address City/[facility]/ZIP Co de Phone Number [facility] [address] [place] [address] * (ABNORMAL) BASIC METABOLIC PANEL (11/04/2007 4:35 AM CDT) CO2 25 22 - 30 mmol/L [facility] CREATININE 1.04 0.67 - 1.17 mg/dL [facility] POTASSIUM 3.9 3.5 - 4.9 mmol/L [facility] BUN 20 6 - 20 mg/dL [facility] CHLORIDE 102 96 - 108 mmol/L [facility] GLUCOSE 90 65 - 99 mg/dL [facility] SODIUM 136 135 - 145 mmol/L [facility] CALCIUM 8.3(L) 8.4 - 10.2 mg/dL [facility] GFR, >60 >=60 mL/min/1. 7 sq meter [facility] GFR >60 >=60 mL/min/1. 7 sq meter [facility] Comment: Estimated GFR rate interpretative information for both Americans and non- Americans is available on the [facility] Intranet at: [email or web address] Select: Lab Policies and Procedures Select: Reference Ranges - GFR Blood specimen (specimen) 11/04/2007 4:35 AM CDT 11/04/2007 5:37 AM CDT us Jesusita Roland MD CHEMISTRY ORDERABLES Edited [facility] [address] [place] [address] * (ABNORMAL) PROTIME-INR (11/04/2007 4:35 AM CDT) Pathologist [facility] INR 1.5(H) 0.9 - 1.1 [facility] Comment: INR Therapeutic Range: Adult: 2.0 - 3.0 for pulmonary embolism or prophylaxis against venous thrombosis or systemic embolization. 2.0 - 3.0 for patients with tissue heart valves. 2.5 - 3.5 for patients with mechanical heart valves or post NH. Pediatric (12 years and under): 1.5 - 3.0 Although the target range in children is not well established, INR values of 1.5 - 3.0 are recommended for most patients. Higher values have been used in children with prosthetic cardiac valves and hereditary clotting disorders. (<3 days) therapeutic ranges have not been established. PROTIME 18.1(H) 12.7 - 15.1 Seconds [facility] Blood specimen (specimen) 11/04/2007 4:35 AM CDT 11/04/2007 5:37 AM CDT us Jesusita Roland MD HEMATOLOGY ORDERABLES Final Result Performing Organization Address [facility]/State[facility] Co de Phone Number [facility] [address] [place] [address] * (ABNORMAL) CBC WITH DIFFERENTIAL (11/04/2007 4:35 AM CDT) [facility] HEMATOCRIT 45.9 40.0 - 48.0 % [facility] RDW-STDEV 51.2(H) 37.1 - 48.7 fL [facility] RBC 4.57 4.50 - 5.40 M/uL [facility] MCHC 32.7 31.5 - 35.5 % [facility] MCV 100.4(H) 82.0 - 99.0 fL [facility] PLATELETS 162 140 - 350 K/uL [facility] HEMOGLOBIN 15.0 13.6 - 16.5 g/dL [facility] RDW 14.1 11.5 - 14.5 % [facility] WBC 7.2 4.0 - 9.8 K/uL [facility] MCH 32.8(H) 27.2 - 32.6 pg [facility] MPV 11.4 9.3 - 12.4 fL [facility] BASOPHILS ABSOLUTE 0.07 0.00 - 0.20 K/uL [facility] MONOCYTES 16(H) 3 - 13 % [facility] MONOCYTE ABSOLUTE 1.15 0.10 - 1.30 K/uL [facility] NEUTROPHILS 64 45 - 70 % [facility] NEUTROPHIL ABSOLUTE 4.55 1.90 - 7.00 K/uL [facility] EOSINOPHILS 1 0 - 7 % [facility] EOSINOPHIL ABSOLUTE 0.07 0.00 - 0.70 K/uL [facility] LYMPHOCYTES 18 16 - 45 % [facility] LYMPHOCYTE ABSOLUTE 1.31 0.70 - 4.50 K/uL [facility] BASOPHILS 1 0 - 2 % [facility] Blood specimen (specimen) 11/04/2007 4:35 AM CDT 11/04/2007 5:37 AM CDT us Jesusita Roland MD HEMATOLOGY ORDERABLES Edited INTERFACE SYSTEM Refer to clinic/hospital department [facility] Georgina5 Mendy [address] [place] [address] * SPUTUM CULTURE WITH GRAM STAIN (11/03/2007 10:27 PM CDT) GRAM STAIN Non diagnostic pattern Many WBC's seen INTERFACE SYSTEM FINAL REPORT Heavy growth normal upper respiratory leticia INTERFACE SYSTEM 11/03/2007 10:2 7 PM CDT 11/03/2007 11:00 PM CDT Kandis Vásquez MD MICROBIOLOGY - GENERAL ORD ERABLES Final Result Performing Organization Address City/[facility] Co de Phone Number INTERFACE SYSTEM Refer to clinic/hospital department * INFLUENZA VIRUS A AND B ANTIGEN (11/03/2007 10:05 PM CDT) FINAL REPORT Influenza A Antigen: Negative by ICT assay. Influenza B Antigen: Negative by ICT assay. -- Note: A negative does not rule out infection. INTERFACE SYSTEM 11/03/2007 10:0 5 PM CDT 11/03/2007 10:38 PM CDT Narrative INTERFACE SYSTEM - 11/03/2007 10:38 PM CDT Nasal wash specimens are optimal for test performance. Specimen collection of a nasopharyngeal swab is less sensitive for viral detection. Result [facility] Kandis Vásquez MD MICROBIOLOGY - GENERAL ORD ERABLES Final Result Performing Organization Address [facility] Co de Phone Number INTERFACE SYSTEM Refer to clinic/hospital department * POC GLUCOSE (11/03/2007 8:18 PM CDT) Pathologist [facility] GLUCOSE POC 98 65 - 99 mg/dL [facility] Venous blood specimen (specimen) 11/03/2007 8:18 PM CDT 11/03/2007 8:18 PM CDT Jesusita Roland MD POINT OF CARE TESTING Final Result Performing Organization Address City/[facility] Co de Phone Number [facility] [address] [place] [address] * ECHOCARDIOGRAM COMPLETE (11/03/2007 4:41 PM CDT) Narrative INTERFACE SYSTEM - 11/03/2007 4:41 PM CDT [place] [address] [place] [address] [email or web address] Echocardiogram Patient: Patricia Dunham Study ID: Adult Echo Gender: M : 1945 Age: 62 years Race: 1 Room: Bed: Height: 70 in ( 178 cm ) Study Date: November 03, 2007 Patient status: Inpatient Weight: 217.58 lb ( 98.9 kg ) Access. #: [id number] POC: Ordering: Milton Consulting: Grant Attending MD: Milton Admitting MD: Milton Indications and History: HISTORY: Atrial fibrillation. Procedure data: PROCEDURE INFORMATION: A transthoracic complete 2D study was performed. Additional evaluation included M-mode, complete spectral Doppler, and color Doppler. Study Conclusions: SUMMARY: - The left ventricle was dilated. Overall left ventricular systolic function was moderate to severely decreased. Left ventricular ejection fraction was estimated in the range of 30 % to 35 %. There was severe hypokinesis of the entire inferoseptal wall. - The aortic valve was severely calcified. There was severely reduced aortic valve leaflet excursion. Findings were consistent with severe aortic valve stenosis. There was moderate aortic valvular regurgitation. - There was mild mitral annular calcification. There was mildly reduced mitral valve leaflet excursion. There was moderate to severe mitral valvular regurgitation. - The left atrium was severely dilated. - Right ventricular size was normal. Right ventricular systolic function was normal. - The estimated peak pulmonary artery systolic pressure was moderate to severely increased. Estimated peak pulmonary artery systolic pressure 55 mmHg. - There was severe tricuspid valvular regurgitation. - The right atrium was severely dilated. Cardiac anatomy: LEFT VENTRICLE: The left ventricle was dilated. Overall left ventricular systolic function was moderate to severely decreased. Left ventricular ejection fraction was estimated in the range of 30 % to 35 %. There was severe hypokinesis of the entire inferoseptal wall. AORTIC VALVE: The aortic valve was severely calcified. There was severely reduced aortic valve leaflet excursion. Doppler interpretation(s): Transaortic velocity was increased due to valvular stenosis. Findings were consistent with severe aortic valve stenosis. There was moderate aortic valvular regurgitation. MITRAL VALVE: There was mild mitral annular calcification. There was mildly reduced mitral valve leaflet excursion. Doppler interpretation(s): There was moderate to severe mitral valvular regurgitation. LEFT ATRIUM: The left atrium was severely dilated. RIGHT VENTRICLE: Right ventricular size was normal. Right ventricular systolic function was normal. Right ventricular wall thickness was normal. TRICUSPID VALVE: Doppler interpretation(s): There was severe tricuspid valvular regurgitation. PULMONARY ARTERY: Doppler interpretation(s): The estimated peak pulmonary artery systolic pressure was moderate to severely increased. Estimated peak pulmonary artery systolic pressure 55 mmHg. RIGHT ATRIUM: The right atrium was severely dilated. PERICARDIUM: There was no pericardial effusion. Measurement tables: 2D measurements LEFT VENTRICLE NORMAL LVOT area 4.12 cm^2 -- Apical 4-Chamber LVID long axis ed 92.2 mm -- LVID long axis es 80.8 mm -- M-mode measurements LEFT VENTRICLE NORMAL LVID ed 65 mm -- LVID es 52 mm -- IVS ed 9 mm -- LVPWT ed 12 mm -- AORTA NORMAL AoD (root) 38 mm -- LEFT ATRIUM NORMAL LAD 38 mm -- Doppler measurements LVOT, AV, AORTA NORMAL LVOT diameter 2.29 cm -- LVOT max velocity 72 cm/sec -- LVOT VTI 14 cm -- Stroke volume (LVOT) 58 ml -- Mean AV velocity 50.2 cm/sec -- Peak AV velocity 360 cm/sec -- AV VTI 80.3 cm -- Mean AV gradient 31.4 mmHg -- Peak AV gradient 52 mmHg -- AV area (VTI) 0.71 cm^2 -- AV area index (VTI) 0.33 cm^2/m^2 -- AV area (Vmax) 0.82 cm^2 -- MITRAL VALVE NORMAL Mitral regurgitation by PISA technique MR PISA aliasing velocity 70 cm/sec -- MR PISA radius 0.72 cm -- Max MR velocity 574 cm/sec -- MR VTI 151 cm -- Max MR flow rate (PISA) 228 cc/sec -- Regurgitant orifice (PISA) 0.4 cm^2 -- Regurgitant volume (PISA) 60 cc -- RIGHT VENTRICLE NORMAL Tricuspid regurgitant velocity 333 cm/sec -- Estimated RV systolic pressure 54 mmHg -- RVOT, PV, PA NORMAL PV peak velocity 53 cm/sec -- PV peak gradient 1 mmHg -- PV mean gradient 1 mmHg -- Prepared and Electronically Authenticated Mary Gutierrez MD Confirmed November 03, 2007 16:24:28 Procedure Note Provider, Historical - 11/03/2007 [place] [address] [place] [id number]: [email or web address] [email or web address] Echocardiogram Patient: Patricia Dunham Study ID: Adult Echo Gender: M : 1945 Age: 62 years Race: 1 Room: Bed: Height: 70 in ( 178 cm ) Study Date: November 03, 2007 Patient status: Inpatient Weight: 217.58 lb ( 98.9 kg ) Access. #: [id number] POC: Ordering: Milton Consulting: Grant Attending MD: Milton Admitting MD: Milton Indications and History: HISTORY: Atrial fibrillation. Procedure data: PROCEDURE INFORMATION: A transthoracic complete 2D study was performed. Additional evaluation included M-mode, complete spectral Doppler, and color Doppler. Study Conclusions: SUMMARY: - The left ventricle was dilated. Overall left ventricular systolic function was moderate to severely decreased. Left ventricular ejection fraction was estimated in the range of 30 % to 35 %. There was severe hypokinesis of the entire inferoseptal wall. - The aortic valve was severely calcified. There was severely reduced aortic valve leaflet excursion. Findings were consistent with severe aortic valve stenosis. There was moderate aortic valvular regurgitation. - There was mild mitral annular calcification. There was mildly reduced mitral valve leaflet excursion. There was moderate to severe mitral valvular regurgitation. - The left atrium was severely dilated. - Right ventricular size was normal. Right ventricular systolicfunction was normal. - The estimated peak pulmonary artery systolic pressure was moderate to severely increased. Estimated peak pulmonary artery systolic pressure 55 mmHg. - There was severe tricuspid valvular regurgitation. - The right atrium was severely dilated. Cardiac anatomy: LEFT VENTRICLE: The left ventricle was dilated. Overall left ventricular systolicfunction was moderate to severely decreased. Left ventricular ejection fractionwas estimated in the range of 30 % to 35 %. There was severe hypokinesis ofthe entire inferoseptal wall. AORTIC VALVE: The aortic valve was severely calcified. There was severely reducedaortic valve leaflet excursion. Doppler interpretation(s): Transaortic velocity was increased due to valvular stenosis. Findings were consistent with severe aortic valve stenosis. There was moderate aortic valvular regurgitation. MITRAL VALVE: There was mild mitral annular calcification. There was mildly reduced mitral valve leaflet excursion. Doppler interpretation(s): There was moderate to severe mitral valvular regurgitation. LEFT ATRIUM: The left atrium was severely dilated. RIGHT VENTRICLE: Right ventricular size was normal. Right ventricular systolic functionwas normal. Right ventricular wall thickness was normal. TRICUSPID VALVE: Doppler interpretation(s): There was severe tricuspid valvular regurgitation. PULMONARY ARTERY: Doppler interpretation(s): The estimated peak pulmonary artery systolic pressure was moderate to severely increased. Estimated peak pulmonary artery systolic pressure 55 mmHg. RIGHT ATRIUM: The right atrium was severely dilated. PERICARDIUM: There was no pericardial effusion. Measurement tables: 2D measurements LEFT VENTRICLE NORMAL LVOT area 4.12 cm^2 -- Apical 4-Chamber LVID long axis ed 92.2 mm -- LVID long axis es 80.8 mm -- M-mode measurements LEFT VENTRICLE NORMAL LVID ed 65 mm -- LVID es 52 mm -- IVS ed 9 mm -- LVPWT ed 12 mm -- AORTA NORMAL AoD (root) 38 mm -- LEFT ATRIUM NORMAL LAD 38 mm -- Doppler measurements LVOT, AV, AORTA NORMAL LVOT diameter 2.29 cm -- LVOT max velocity 72 cm/sec -- LVOT VTI 14 cm -- Stroke volume (LVOT) 58 ml -- Mean AV velocity 50.2 cm/sec -- Peak AV velocity 360 cm/sec -- AV VTI 80.3 cm -- Mean AV gradient 31.4 mmHg -- Peak AV gradient 52 mmHg -- AV area (VTI) 0.71 cm^2 -- AV area index (VTI) 0.33 cm^2/m^2 -- AV area (Vmax) 0.82 cm^2 -- MITRAL VALVE NORMAL Mitral regurgitation by PISA technique MR PISA aliasing velocity 70 cm/sec -- MR PISA radius 0.72 cm -- Max MR velocity 574 cm/sec -- MR VTI 151 cm -- Max MR flow rate (PISA) 228 cc/sec -- Regurgitant orifice (PISA) 0.4 cm^2 -- Regurgitant volume (PISA) 60 cc -- RIGHT VENTRICLE NORMAL Tricuspid regurgitant velocity 333 cm/sec -- Estimated RV systolic pressure 54 mmHg -- RVOT, PV, PA NORMAL PV peak velocity 53 cm/sec -- PV peak gradient 1 mmHg -- PV mean gradient 1 mmHg -- Prepared and Electronically Authenticated Mary Gutierrez MD Confirmed November 03, 2007 16:24:28 us Jesusita Roland MD US ORDERABLES Final Result Performing Organization Address City/[facility] Co de Phone Number INTERFACE SYSTEM Refer to clinic/hospital department * (ABNORMAL) POC GLUCOSE (11/03/2007 4:33 PM CDT) GLUCOSE POC 149(H) 65 - 99 mg/dL [facility] Venous blood specimen (specimen) 11/03/2007 4:33 PM CDT 11/03/2007 4:33 PM CDT Jesusita Roland MD POINT OF CARE TESTING Final Result Performing Organization Address [facility] de Phone Number [facility] [address] [place] [address] * US DOPPLER ARTERIAL LEGS BILATERAL (11/03/2007 3:33 PM CDT) Anatomical Region Laterality Modality Lower Extremity Other Narrative 11/03/2007 3:33 PM CDT Please type in written order in Special [place] [address] [email or web address] Peripheral Venous Study Patient: Patricia Dunham Study ID: BLOOD FLOW STUDY Gender: M : 1945 Age: 62 years Race: 1 Room: Bed: Height: Study Date: November 03, 2007 Patient status: Inpatient Weight: Access. #: [id number] POC: Drilling Foreman: Sandy Ordering: Milton Consulting: Grant Attending MD: Milton Admitting MD: Milton SUMMARY: There was no evidence of deep vein thrombosis of the bilateral lower extremity veins. COMPARISONS No previous study is available for comparison. HISTORY AND INDICATIONS: INDICATIONS: Bilateral lower extremity swelling. HISTORY: Vascular symptoms/signs: Swelling. PROCEDURE INFORMATION: PROCEDURE PERFORMED: A complete duplex and high resolution Doppler study with imaging and spectral analysis was performed on both lower extremity venous systems. PROCEDURE DETAIL: This was an inpatient procedure. RIGHT DUPLEX DATA Common femoral Patency/occlusion: Patent Flow pattern: Phasic Competence test: Competent B-mode compressibility: Normal Augmentation: Present Comments: no evidence of echogenic material Superficial femoral Patency/occlusion: Patent Flow pattern: Phasic Competence test: Competent B-mode compressibility: Normal Augmentation: Present Comments: no evidence of echogenic material Popliteal Patency/occlusion: Patent Flow pattern: Phasic Competence test: Competent B-mode compressibility: Normal Augmentation: Present Comments: no evidence of echogenic material Peroneal Patency/occlusion: Patent Flow pattern: -- Competence test: -- B-mode compressibility: Normal Augmentation: -- Comments: no evidence of echogenic material Posterior tibial Patency/occlusion: Patent Flow pattern: -- Competence test: -- B-mode compressibility: Normal Augmentation: -- Comments: no evidence of echogenic material LEFT DUPLEX DATA Common femoral Patency/occlusion: Patent Flow pattern: Phasic Competence test: Competent B-mode compressibility: Normal Augmentation: Present Comments: No evidence of echogenic material Superficial femoral Patency/occlusion: Patent Flow pattern: Phasic Competence test: Competent B-mode compressibility: Normal Augmentation: Present Comments: no evidence of echogenic material Popliteal Patency/occlusion: Patent Flow pattern: Phasic Competence test: Competent B-mode compressibility: Normal Augmentation: Present Comments: no evidence of echogenic material Peroneal Patency/occlusion: Patent Flow pattern: -- Competence test: -- B-mode compressibility: Normal Augmentation: -- Comments: no evidence of echogenic material Posterior tibial Patency/occlusion: Patent Flow pattern: -- Competence test: -- B-mode compressibility: Normal Augmentation: -- Comments: no evidence of echogenic material There was no evidence of deep vein thrombosis of the bilateral lower extremity veins. Prepared and Electronically Authenticated Kai Thakkar Confirmed November 03, 2007 15:30:04 Procedure Note Provider, Historical - 11/03/2007 Please type in written order in Special Instructions field. [place] [address] [place] [address] [email or web address] Peripheral Venous Study Patient: Patricia Dunham Study ID: BLOOD FLOW STUDY Gender: M : 1945 Age: 62 years Race: 1 Room: Bed: Height: Study Date: November 03, 2007 Patient status: Inpatient Weight: Access. #: [id number] POC: Drilling Foreman: Sandy Ordering: Milton Consulting: Grant Attending MD: Milton Admitting MD: Milton SUMMARY: There was no evidence of deep vein thrombosis of the bilateral lowerextremity veins. COMPARISONS No previous study is available for comparison. HISTORY AND INDICATIONS: INDICATIONS: Bilateral lower extremity swelling. HISTORY: Vascular symptoms/signs: Swelling. PROCEDURE INFORMATION: PROCEDURE PERFORMED: A complete duplex and high resolution Doppler study with imaging andspectral analysis was performed on both lower extremity venous systems. PROCEDURE DETAIL: This was an inpatient procedure. RIGHT DUPLEX DATA Common femoral Patency/occlusion: Patent Flow pattern: Phasic Competence test: Competent B-mode compressibility: Normal Augmentation: Present Comments: no evidence of echogenic material Superficial femoral Patency/occlusion: Patent Flow pattern: Phasic Competence test: Competent B-mode compressibility: Normal Augmentation: Present Comments: no evidence of echogenic material Popliteal Patency/occlusion: Patent Flow pattern: Phasic Competence test: Competent B-mode compressibility: Normal Augmentation: Present Comments: no evidence of echogenic material Peroneal Patency/occlusion: Patent Flow pattern: -- Competence test: -- B-mode compressibility: Normal Augmentation: -- Comments: no evidence of echogenic material Posterior tibial Patency/occlusion: Patent Flow pattern: -- Competence test: -- B-mode compressibility: Normal Augmentation: -- Comments: no evidence of echogenic material LEFT DUPLEX DATA Common femoral Patency/occlusion: Patent Flow pattern: Phasic Competence test: Competent B-mode compressibility: Normal Augmentation: Present Comments: No evidence of echogenic material Superficial femoral Patency/occlusion: Patent Flow pattern: Phasic Competence test: Competent B-mode compressibility: Normal Augmentation: Present Comments: no evidence of echogenic material Popliteal Patency/occlusion: Patent Flow pattern: Phasic Competence test: Competent B-mode compressibility: Normal Augmentation: Present Comments: no evidence of echogenic material Peroneal Patency/occlusion: Patent Flow pattern: -- Competence test: -- B-mode compressibility: Normal Augmentation: -- Comments: no evidence of echogenic material Posterior tibial Patency/occlusion: Patent Flow pattern: -- Competence test: -- B-mode compressibility: Normal Augmentation: -- Comments: no evidence of echogenic material There was no evidence of deep vein thrombosis of the bilateral lowerextremity veins. Prepared and Electronically Authenticated Kai Thakkar Confirmed November 03, 2007 15:30:04 us Jesusita Roland MD ORDERABLES Final Result * SPUTUM CULTURE WITH GRAM STAIN (11/03/2007 12:13 PM CDT) GRAM STAIN Non diagnostic pattern Rare WBC's seen INTERFACE SYSTEM FINAL REPORT Heavy growth normal upper respiratory leticia INTERFACE SYSTEM 11/03/2007 12:1 3 PM CDT 11/03/2007 1:06 PM CDT us Jesusita Roland MD MICROBIOLOGY - GENERAL ORDER JOSEPH Final Result INTERFACE SYSTEM Refer to clinic/hospital department * (ABNORMAL) POC GLUCOSE (11/03/2007 11:36 AM CDT) [facility] GLUCOSE POC 136(H) 65 - 99 mg/dL [facility] Venous blood specimen (specimen) 11/03/2007 11:36 AM CDT 11/03/2007 11:36 AM CDT us Jesusita Roland MD POINT OF CARE TESTING Final Result Performing Organization Address City/[facility]/ZIP Co de Phone Number [facility] [address] [place] [address] * TROPONIN (W/REFLEX CKMB/CK) (11/03/2007 11:32 AM CDT) [facility] TROPONIN T <0.01 <=0.03 ng/mL [facility] TROPONIN T INTERP Negative [facility] Blood specimen (specimen) 11/03/2007 11:32 AM CDT 11/03/2007 11:35 AM CDT us Jesusita Roland MD CHEMISTRY ORDERABLES Edited Performing Organization Address City/[facility]/ZIP Co de Phone Number [facility] [address] [place] [address] * BLOOD CULTURE (11/03/2007 9:52 AM CDT) [facility] PRELIMINARY REPORT No growth to date. Culture in progress INTERFACE SYSTEM FINAL REPORT No growth 5 days INTERFACE SYSTEM Blood specimen (specimen) 11/03/2007 9:52 AM CDT 11/03/2007 12:07 PM CDT us Jesusita Roland MD MICROBIOLOGY - GENERAL ORDER JOSEPH Final Result Performing Organization Address City/[facility] de Phone Number INTERFACE SYSTEM Refer to clinic/hospital department * BLOOD CULTURE (11/03/2007 9:46 AM CDT) REPORT/SPECIMEN COMMENT Specimen processed with suboptimal blood volume collected. Recommended adult blood volume is 8-10mL per bottle. INTERFACE SYSTEM PRELIMINARY REPORT No growth to date. Culture in progress INTERFACE SYSTEM FINAL REPORT No growth 5 days INTERFACE SYSTEM Blood specimen (specimen) 11/03/2007 9:46 AM CDT 11/03/2007 12:07 PM CDT us Jesusita Roland MD MICROBIOLOGY - GENERAL ORDER JOSEPH Final Result Performing Organization Address [facility] de Phone Number INTERFACE SYSTEM Refer to clinic/hospital department * (ABNORMAL) POC GLUCOSE (11/03/2007 7:07 AM CDT) GLUCOSE POC 129(H) 65 - 99 mg/dL [facility] Venous blood specimen (specimen) 11/03/2007 7:07 AM CDT 11/03/2007 7:07 AM CDT us Jesusita Roland MD POINT OF CARE TESTING Final Result Performing Organization Address [facility] de Phone Number [facility] [address] [place] [address] * (ABNORMAL) BASIC METABOLIC PANEL (11/03/2007 2:55 AM CDT) GLUCOSE 116(H) 65 - 99 mg/dL [facility] SODIUM 137 135 - 145 mmol/L [facility] CALCIUM 8.8 8.4 - 10.2 mg/dL [facility] CO2 27 22 - 30 mmol/L [facility] CREATININE 1.23(H) 0.67 - 1.17 mg/dL [facility] POTASSIUM 4.3 3.5 - 4.9 mmol/L [facility] BUN 17 6 - 20 mg/dL [facility] CHLORIDE 100 96 - 108 mmol/L [facility] GFR, >60 >=60 mL/min/1. 7 sq meter [facility] GFR 60 >=60 mL/min/1. 7 sq meter [facility] Comment: Estimated GFR rate interpretative information for both Americans and non- Americans is available on the [facility] Intranet at: [email or web address] Select: Lab Policies and Procedures Select: Reference Ranges - GFR Blood specimen (specimen) 11/03/2007 2:55 AM CDT 11/03/2007 2:56 AM CDT Jesusita Roland MD CHEMISTRY ORDERABLES Edited [facility] [address] [place] [address] * TROPONIN (W/REFLEX CKMB/CK) (11/03/2007 2:55 AM CDT) TROPONIN T <0.01 <=0.03 ng/mL [facility] TROPONIN T INTERP Negative [facility] Blood specimen (specimen) 11/03/2007 2:55 AM CDT 11/03/2007 2:56 AM CDT Jesusita Roland MD CHEMISTRY ORDERABLES Edited [facility] [address] [place] [place] [address] * (ABNORMAL) POC GLUCOSE (11/02/2007 8:25 PM CDT) GLUCOSE POC 103(H) 65 - 99 mg/dL [facility] Venous blood specimen (specimen) 11/02/2007 8:25 PM CDT 11/02/2007 8:25 PM CDT us Jesusita Roland MD POINT OF CARE TESTING Final Result [facility] [facility] [address] [place] [address] * XR CHEST PA AND LATERAL (11/02/2007 7:43 PM CDT) Anatomical Region Laterality Modality Chest Other 11/02/2007 7:43 PM CDT Narrative 11/03/2007 9:04 AM CDT [facility] [place] [address] [place], [place] [address] Admit Date: 11/02/2007 PATRICIA DUNHAM Sex: M Admit Prov: BERTHAJESUSITA LOPEZ Date: 1945 Primary Care Prov: CARMINEBeeMERYL CMRN: [id number] Room: [address] [place] [address] SSN: [id number] IMAGING SERVICES Ordering Prov: N/A Accession Number: [id number] Interpretation CHEST 2 VIEWS 11/02/2007 History: Congestive failure Examination of the chest reveals small bilateral effusions. There is some left lower lobe infiltrate. There is no congestion or pneumothorax. The heart and mediastinal silhouette are normal. Bony structures appear intact. Impression: Left lower lobe infiltrate and small bilateral effusions . Dictated by: DARRYL REYES 11/03/2007 07:40 Electronically signed by: DARRYL REYES 11/03/2007 09:04 Transcribed: 11/03/2007 08:06 AMK Procedure Note Provider, Historical - 11/03/2007 [facility] [place] [address] [place], [place] [address] Admit Date: 11/02/2007 PATRICIA DUNHAM Sex: M Admit Prov: JESUSITA ROLAND Date: 1945 Primary Care Prov: MERYL FRIEDMAN CMRN: [id number] Room: [address] [place] [address] SSN: [id number] IMAGING SERVICES Ordering Prov: N/A Interpretation CHEST 2 VIEWS 11/02/2007 History: Congestive failure Examination of the chest reveals small bilateral effusions. There issome left lower lobe infiltrate. There is no congestion or pneumothorax.The heart and mediastinal silhouette are normal. Bony structures appearintact. Impression: Left lower lobe infiltrate and small bilateraleffusions . Dictated by: DARRYL REYES 11/03/2007 07:40 Electronically signed by: DARRYL REYES 11/03/2007 09:04 Transcribed: 11/03/2007 08:06 AMK us Jesusita Roland MD DIAGNOSTIC IMAGING ORDERABLE S Final Result * TROPONIN (W/REFLEX CKMB/CK) (11/02/2007 7:05 PM CDT) TROPONIN T <0.01 <=0.03 ng/mL [facility] TROPONIN T INTERP Negative [facility] Blood specimen (specimen) 11/02/2007 7:05 PM CDT 11/02/2007 7:13 PM CDT us Jesusita Roland MD CHEMISTRY ORDERABLES Edited [facility] [address] [facility] [place] [address] * TSH (11/02/2007 7:05 PM CDT) TSH 1.59 0.27 - 4.20 uU/mL [facility] Blood specimen (specimen) 11/02/2007 7:05 PM CDT 11/02/2007 7:13 PM CDT Jesusita Roland MD CHEMISTRY ORDERABLES Final R esult Performing Organization Address [facility] Co de Phone Number [facility] [address] [place] [address] * (ABNORMAL) HEPATIC FUNCTION PANEL (11/02/2007 7:05 PM CDT) BILIRUBIN TOTAL 1.0 0.2 - 1.0 mg/dL [facility] ALT 72(H) 0 - 41 U/L [facility] ALKALINE PHOSPHATASE 58 40 - 129 U/L [facility] TOTAL PROTEIN 7.0 6.3 - 8.6 g/dL [facility] BILIRUBIN DIRECT 0.4(H) 0.0 - 0.3 mg/dL [facility] AST 38 12 - 38 U/L [facility] ALBUMIN 4.2 3.4 - 4.8 g/dL [facility] Blood specimen (specimen) 11/02/2007 7:05 PM CDT 11/02/2007 7:13 PM CDT Jesusita Roland MD CHEMISTRY ORDERABLES Final R esult Performing Organization Address [facility] Co de Phone Number [facility] [address] [place] [address] * (ABNORMAL) PROTIME-INR (11/02/2007 7:05 PM CDT) INR 1.3(H) 0.9 - 1.1 [facility] Comment: INR Therapeutic Range: Adult: 2.0 - 3.0 for pulmonary embolism or prophylaxis against venous thrombosis or systemic embolization. 2.0 - 3.0 for patients with tissue heart valves. 2.5 - 3.5 for patients with mechanical heart valves or post [place]. Pediatric (12 years and under): 1.5 - 3.0 Although the target range in children is not well established, INR values of 1.5 - 3.0 are recommended for most patients. Higher values have been used in children with prosthetic cardiac valves and hereditary clotting disorders. (<3 days) therapeutic ranges have not been established. PROTIME 16.2(H) 12.7 - 15.1 Seconds [facility] Blood specimen (specimen) 11/02/2007 7:05 PM CDT 11/02/2007 7:13 PM CDT us Jesusita Roland MD HEMATOLOGY ORDERABLES Final Result [facility] [address] [place] [address] * (ABNORMAL) CBC WITH DIFFERENTIAL (11/02/2007 7:05 PM CDT) MCV 101.4(H) 82.0 - 99.0 fL [facility] PLATELETS 169 140 - 350 K/uL [facility] HEMOGLOBIN 16.6(H) 13.6 - 16.5 g/dL [facility] RDW 14.1 11.5 - 14.5 % [facility] WBC 9.3 4.0 - 9.8 K/uL [facility] MCH 33.3(H) 27.2 - 32.6 pg [facility] MPV 11.7 9.3 - 12.4 fL [facility] HEMATOCRIT 50.6(H) 40.0 - 48.0 % [facility] RDW-STDEV 52.0(H) 37.1 - 48.7 fL [facility] RBC 4.99 4.50 - 5.40 M/uL [facility] MCHC 32.8 31.5 - 35.5 % [facility] EOSINOPHILS 0 0 - 7 % [facility] EOSINOPHIL ABSOLUTE 0.02 0.00 - 0.70 K/uL [facility] LYMPHOCYTES 13(L) 16 - 45 % [facility] LYMPHOCYTE ABSOLUTE 1.18 0.70 - 4.50 K/uL [facility] BASOPHILS 1 0 - 2 % [facility] BASOPHILS ABSOLUTE 0.05 0.00 - 0.20 K/uL [facility] MONOCYTES 15(H) 3 - 13 % [facility] MONOCYTE ABSOLUTE 1.43(H) 0.10 - 1.30 K/uL [facility] NEUTROPHILS 71(H) 45 - 70 % [facility] NEUTROPHIL ABSOLUTE 6.66 1.90 - 7.00 K/uL [facility] Blood specimen (specimen) 11/02/2007 7:05 PM CDT 11/02/2007 7:13 PM CDT us Jesusita Roland MD HEMATOLOGY ORDERABLES Edited INTERFACE SYSTEM Refer to clinic/hospital department [facility] [address] [place] [address] * BASIC METABOLIC PANEL (11/02/2007 7:05 PM CDT) BUN 15 6 - 20 mg/dL [facility] CHLORIDE 102 96 - 108 mmol/L [facility] GLUCOSE 92 65 - 99 mg/dL [facility] SODIUM 138 135 - 145 mmol/L [facility] CALCIUM 9.2 8.4 - 10.2 mg/dL [facility] CO2 25 22 - 30 mmol/L [facility] CREATININE 1.10 0.67 - 1.17 mg/dL [facility] POTASSIUM 4.5 3.5 - 4.9 mmol/L [facility] GFR, >60 >=60 mL/min/1.7 sq meter [facility] GFR >60 >=60 mL/min/1.7 sq meter [facility] Comment: Estimated GFR rate interpretative information for both Americans and non- Americans is available on the [facility] Intranet at: [email or web address] Select: Lab Policies and Procedures Select: Reference Ranges - GFR Blood specimen (specimen) 11/02/2007 7:05 PM CDT 11/02/2007 7:13 PM CDT Jesusita Roland MD CHEMISTRY ORDERABLES Edited Performing Organization Address City/[facility]/ZIP Co de Phone Number [facility] [address] [place] [address] * LIPID PANEL (11/02/2007 7:05 PM CDT) CHOL/HDL RATIO 2.8 2.0 - 5.0 [facility] TRIGLYCERIDE 59 10 - 149 mg/dL [facility] HDL 40 40 - 59 mg/dL [facility] CHOLESTEROL 110 100 - 199 mg/dL [facility] LDL CALCULATED 58 <=99 mg/dL [facility] LIPID PANEL COMMENT See Below [facility] Comment: The adult ATP and pediatric NCEP classifications for lipids are available on the [facility] Intranet at: [email or web address] Select: Lab Policies and Procedures,Current Select: Lipid Panel Interpretation Blood specimen (specimen) 11/02/2007 7:05 PM CDT 11/02/2007 7:13 PM CDT us Jesusita Roland MD CHEMISTRY ORDERABLES Edited [facility] [address] [place] [address] documented in this encounter Visit Diagnoses Diagnosis Congestive heart failure, unspecified (CMS/HCC) Congestive heart failure, unspecified documented in this encounter Care Teams Grails Web Application Developer Relationship Specialty Start Date End Date Meryl Friedman MD PCP - General 12/10/07 documented as of this encounter
--- OUTSIDE RECORDS SUMMARY | 2024-09-29 12:40 | XMS_ITS | Clinical Summary ---
Author Organization [facility] Address [address] 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 BLUE ACCESS/TRUE BLUE PPO Care Teams Seal Mixing Operator Relationship Specialty Start Date End Date Dimitry Kamara MD PCP - General 12/10/07
--- OUTSIDE RECORDS SUMMARY | 2024-09-29 12:40 | XMS_ITS | Encounter Summary ---
Author Organization [facility] Address 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 Gender Identity Not on file Sexual Orientation Not on file documented as of this encounter Plan of Treatment Not on file documented as of this encounter Procedures Procedure Name Priority Date/Time Associated Diagnosis Comments PROTIME-INR Routine 12/15/2007 10:33 AM CDT documented in this encounter Results * (ABNORMAL) PROTIME-INR (12/15/2007 10:33 AM CDT) PROTIME 23.3(H) 12.7 - 15.1 Seconds [facility] INR 2.1(H) 0.9 - 1.1 [facility] Comment: INR Therapeutic Range: Adult: 2.0 - 3.0 for pulmonary embolism or prophylaxis against venous thrombosis or systemic embolization. 2.0 - 3.0 for patients with tissue heart valves. 2.5 - 3.5 for patients with mechanical heart valves or post [place]. Pediatric (12 years and under): 1.5 - 3.0 Although the target range in children is not well established, INR values of 1.5 - 3.0 are recommended for most patients. Higher values have been used in children with prosthetic cardiac valves and hereditary clotting disorders. (<3 days) therapeutic ranges have not been established. Blood specimen (specimen) 12/15/2007 10:33 AM CDT 12/15/2007 10:36 AM CDT us Steven Pimentel Jr., MD HEMATOLOGY ORDERABLES F inal Result [facility] CLIA# [id number] [address] [place] [address] documented in this encounter Visit Diagnoses Diagnosis Atrial fibrillation (CMS/HCC) Atrial fibrillation documented in this encounter Care Teams Reed Repairer Relationship Specialty Start Date End Date Dimitry Kamara MD PCP - General 12/10/07 documented as of this encounter
[2024-09-29 14:43] LABS: Hemoglobin A1C 7.3 % (<5.7)
== END 2024-09-29 11:02 | disposition home or self-care (01) ==
LOC: ANHLAB 11:04
PROVIDERS: PCP Internal Medicine; Visit Provider Internal Medicine
DX: E78.2 Mixed hyperlipidemia (principal); E11.9 Type 2 diabetes mellitus without complications; I10 Essential (primary) hypertension; Z79.4 Long term (current) use of insulin
CPT/HCPCS: 36415; 80053; 80061; 83036; 85025

== ENCOUNTER 2025-01-17 16:13 | Inpatient (IN) | payer MEDICARE, SELFPAY ==
[2025-01-17] VITALS (8 sets, daily range): BP systolic 75–125; BP diastolic 34–64; PULSE 85–105; RESP 14–22; TEMP 36.7; O2SAT 94–98; BMI 20.1
--- NOTE | ~2025-01-17 | XR_ITS ---
Left Hand Technique: PA, oblique, and lateral views were obtained. Clinical History: Cat bite Findings: No acute fracture or dislocation is seen. 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 There is mild degenerative change of the second and third MCP joints, as well as the first MCP joint.. Soft tissues are unremarkable. Impression: No acute abnormality. 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 Mild degenerative changes of the first through third MCP joints. Reviewed, dictated and finalized at location M. Impression: No acute abnormality. 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 Mild degenerative changes of the first through third MCP joints.
--- NOTE | ~2025-01-17 | XR_ITS ---
CHEST RADIOGRAPH CLINICAL HISTORY: hypoxia . COMPARISON: 01/19/2025 TECHNIQUE: Single portable view of the chest. FINDINGS Sternal wires and mediastinal clips are identified, the wires are midline and intact. 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 The remainder of the cardiomediastinal silhouette is otherwise unremarkable. Increased interstitial markings are identified bilaterally, findings suggesting mild pulmonary vascul ar congestion. The lungs are otherwise clear. IMPRESSION: Mild pulmonary vascular congestion, without focal infiltrate or effusion. Reviewed, dictated and finalized at location A.
--- NOTE | ~2025-01-17 | XR_ITS ---
CHEST RADIOGRAPH CLINICAL HISTORY: chf . COMPARISON: 05/31/2024 TECHNIQUE: Single portable view of the chest. FINDINGS Sternal wires and mediastinal clips are identified, the wires are midline and intact. 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 Calcified lymph nodes within the mediastinum. The remainder of the cardiomediastinal silhouette is otherwise unremarkable. Calcified nodules within the right mid to lower lung field. The lungs are otherwise clear. IMPRESSION: No focal infiltrate or effusion. Reviewed, dictated and finalized at location A.
--- NOTE | ~2025-01-17 | CT_ITS ---
History: Cerebral infarction PROCEDURE: CT head without contrast. COMPARISON: None reference is made to MRI examination of the brain dated 05/31/2024 TECHNIQUE: Axial imaging of the head performed from the skull base to the vertex without IV contrast. Sagittal a nd coronal reformations obtained. DLP: 681 mGy-cm FINDINGS: The ventricles are enlarged. The dilatation of the ventricles is proportional to the degree of sulcal prominence, not uncommon in the senescent brain. Decreased attenuation is identified within the periventricular white matter, likely secondary to micr ovascular ischemic disease, in a patient of this age. Decreased attenuation is also identified within the right cerebellum, the left thalamus, bilateral [place] ganglia and the anterior limb of the left internal capsule, consistent with patient's prior cereb ral infarction. There is no mass, mass effect or midline shift. There is no abnormal extra-axial fluid collection or intracranial hemorrhage. Visualized paranasal sinuses are clear. The mastoid air cells are well aerated. No acute displaced fractures within the overlying cranium. Impression: No acute intracranial hemorrhage or suspicious mass effect. Reviewed, dictated and finalized at location A. Impression: No acute intracranial hemorrhage or suspicious mass effect.
--- NOTE | ~2025-01-17 | US_ITS ---
EXAMINATION: US venous doppler [facility] DATE: 01/22/2025 18:32 INDICATION: edema . TECHNIQUE: Grayscale images without and with compression and Doppler images of the bilateral lower ex tremity veins were obtained. COMPARISON: None FINDINGS: The right common femoral vein, profunda (deep) femoral vein, femoral vein, popliteal vein, peroneal v ein, posterior tibial veins, gastrocnemius vein, and greater saphenous vein are patent. The left common femoral vein, profunda (deep) femoral vein, femoral vein, popliteal vein, peroneal v ein, posterior tibial veins, gastrocnemius vein, and greater saphenous vein are patent. IMPRESSION: Patent bilateral lower extremity veins. No evidence of deep venous thrombosis. Reviewed, dictated and finalized at location K.
--- NOTE | ~2025-01-17 | XR_ITS ---
XR chest 1V portable Ordering provider: Karine Cruz APRN History: 79 years Male with . coarse lungs, leukocytosis . Comparison: January 17, 2025 FINDINGS: MEDIASTINUM: The cardiac silhouette is not enlarged. Postoperative changes in the mediastinum. LUNGS: No effusions or pneumothorax. Prominent bronchovascular markings in the lower lobes more on the left side. Early pneumonia cannot b e excluded. OTHER: No free air under the diaphragm. IMPRESSION: Prominent markings in the lower lobes. Early pneumonia in the left lung base is not excluded. Reviewed, dictated and finalized at location A.
--- NOTE | ~2025-01-17 | CT_ITS ---
CLINICAL INDICATION: Fall. COMPARISON: 05/31/2024 (CT examination of the chest) and 06/26/2015 (CT of the abdomen and pelvis). TECHNIQUE: Multiple contiguous axial images of the chest, abdomen and pelvis were performed without t he administration of intravenous contrast The dose-length product (DLP) was 357.00 mGy-cm. Automated exposure control and iterative reconstruction technique were employed. FINDINGS/OBSERVATIONS: LUNG: The lungs are clear. No evidence of contusion, pneumothorax or hemothorax. MEDIASTINUM: Limited evaluation without intravenous contrast. Calcified lymph nodes suggesting prior granulomatous disease. HEART: The heart is of normal size, without pericardial effusion. Prosthetic valve in the aortic posi tion. SOFT TISSUES OF THE CHEST: Unremarkable. BONES OF THE CHEST: Acute nondisplaced fractures of the left lateral fourth, fifth and sixth ribs. No additional rib fractures are appreciated. The sternum is intact. The thoracic spine is without acute compression fracture. Redemonstration of a hemangioma (rather cris n a lytic lesion) within the T7 vertebral body, unchanged from prior CT examinations of the chest. Liver: Punctate calcifications identified within the hepatic parenchyma, suggesting prior granulomato us disease. The remainder of the liver otherwise demonstrates homogeneous attenuation and is not enlarged. No perihepatic fluid to suggest acute traumatic injury. Gallbladder and biliary system: The gallbladder is only minimally distended, and otherwise unremarkable. Pancreas: Limited evaluation of the pancreas secondary to the lack of intravenous contrast. No peripancreatic fluid is identified to suggest acute traumatic injury. Spleen: Punctate calcifications identified within the splenic parenchyma, suggesting prior granulomat ous disease. The remainder of the spleen demonstrates otherwise homogeneous attenuation and is not enlarged. No pe risplenic fluid is identified to suggest acute traumatic injury. Kidneys: The bilateral kidneys are unremarkable, without hydronephrosis or renal calculi. No perirenal fluid is identified to suggest acute traumatic injury. Adrenal glands: Unremarkable. Gastrointestinal tract: Fecal stasis within the colon. No free fluid within the abdomen or pelvis. Vasculature: Densely calcified atherosclerotic disease. Lymph nodes: Limited evaluation without intravenous contrast. Pelvic structures: The bladder is only minimally distended, limiting its evaluation The prostate gland is prominent without mary jo enlargement. Body wall and musculoskeletal: Small bowel containing right and large bowel containing left inguinal hernias without obstruction. Severe degenerative disease within both the thoracic and lumbosacral spines with osteophyte formation , disc space narrowing, endplate and vacuum phenomena. Ankylosis of L5/S1 is present. IMPRESSION: No hollow or solid visceral organ injury. Acute nondisplaced fractures of the lateral margin of the left fourth fifth and sixth ribs. 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 Reviewed, dictated and finalized at location A. IMPRESSION: No hollow or solid visceral organ injury. Acute nondisplaced fractures of the lateral margin of the left fourth fifth and sixth ribs. 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
--- NOTE | 2025-01-17 17:23 | ECG_ITS ---
Test Date: 2025-01-17 17:17:48 Measurements Intervals Call Rate: 79 P: 0 DE: 0 QRS: -40 QRSD: 109 T: 86 QT: 371 QTc: 427 Interpretive Statements ATRIAL FIBRILLATION LEFT AXIS DEVIATION INCOMPLETE RIGHT BUNDLE BRANCH BLOCK BORDERLINE T WAVE ABNORMALITY- HIGH LATERAL LEADS BASELINE ARTIFACT- I, II, AVR, AVL, AVF, V3 ABNORMAL ECG No previous ECG available for comparison Electronically Signed On 01-18-2025 08:05:45 CDT by John Tracey D.O.
[2025-01-17 17:45] LABS: Hematocrit 41.8 % (42.0-52.0); Hemoglobin 13.9 g/dL (14.0-18.0); Immature Granulocyte Percent A 1.5 % (0-0.5); Lymphocytes Absolute Auto 0.61 K/mm3 (0.9-3.2); Mean Corpuscular HGB Conc 33.3 g/dl (32-36); Mean Corpuscular Hemoglobin 32.4 pg (26-34); Mean Corpuscular Volume 97.4 fl (80-100); Nucleated Red Blood Cells Absolute Auto 0.000 K/mm3 (0.0-0.012); Nucleated Red Blood Cells Perc 0.0 % (0.0-0.2); Platelet Count Result 154 k/mm3 (150-375); Red Blood Count 4.29 M/mm3 (4.6-6.20); White Blood Count 26.8 K/mm3 (4.5-10.0)
[2025-01-17 17:57] LABS: Alanine Aminotransferase 26 U/L (6-50); Albumin Level 3.3 g/dL (3.5-5.1); Alkaline Phosphatase 138 U/L (38-126); Anion Gap 7 mmol/L (4-12); Aspartate Amino Transferase 29 U/L (17-59); Bilirubin,Total 0.6 mg/dL (0.2-1.3); Blood Urea Nitrogen 51 mg/dL (9-20); Calcium 9.0 mg/dL (8.4-10.2); Carbon Dioxide 27 mmol/L (22-30); Chloride 97 mmol/L (98-107); Estimated CRCL calculation 30 ml/min; Estimated Glomerular Filt Rate 44; Glucose 200 mg/dL (65-110); Potassium 4.8 mmol/L (3.4-5.0); Sodium 131 mmol/L (137-145); Total Protein 7.0 g/dL (6.3-8.2)
[2025-01-17 18:27] LABS: Thyroid Stimulating Hormone 0.936 uIU/mL (0.465-4.680)
--- NOTE | 2025-01-17 18:41 | PC.NURSE ---
patient is attempting to provide a urine sample at this time.
--- NOTE | 2025-01-17 18:57 | ED.AMS ---
HPI - Altered Mental Status General Chief Complaint: Altered Mental Status <Tank Anthony MD - Last Filed: 02/09/25 11:40> Stated Complaint: physical and cognitive problems <Tank Anthony MD - Last Filed: 02/09/25 11:40> Time Seen by Provider: 01/17/25 17:19 <Tank Anthony MD - Last Filed: 02/09/25 11:40> Source: patient and family <Tank Anthony MD - Last Filed: 02/09/25 11:40> Mode of arrival: ambulatory <Tank Anthony MD - Last Filed: 02/09/25 11:40> Limitations: no limitations <Tank Anthony MD - Last Filed: 02/09/25 11:40> History of Present Illness HPI narrative: 79-year-old with a history of hypertension, diabetes, AFib on apixaban was brought in by family with the complaints of confusion, not feeling well, forgetful for past few days. Son who is at bedside states that he has not been taking his medication as prescribed he usually misses will 1 a 2 days a week of his regular medication. He has not been taking it for the last 4 days. No history of fever chills. Has a recent fall at home. <Tank Anthony MD - Last Filed: 02/09/25 11:40> MD complaint: altered mental status <Tank Anthony MD - Last Filed: 02/09/25 11:40> Onset (ago): day(s) (5) <Tank Anthony MD - Last Filed: 02/09/25 11:40> Timing confirmed by: spouse and family member <Tank Anthony MD - Last Filed: 02/09/25 11:40> Severity: moderate <Tank Anthony MD - Last Filed: 02/09/25 11:40> Associated symptoms: denies other symptoms <Tank Anthony MD - Last Filed: 02/09/25 11:40> Related Data Home Medications: Home Medications ?Medication ?Instructions ?Recorded ?Confirmed ?Last Taken ?Type cinnamon bark 500 mg capsule 500 mg PO HS 09/07/19 01/18/25 02/09/20 History (Cinnamon) mecobalamin (vitamin B12) 1,000 1,000 mcg PO DAILY 04/22/24 01/18/25 Unknown History mcg chewable tablet <Tank Anthony MD - Last Filed: 02/09/25 11:40> Allergies/Adverse Reactions: Allergies Allergy/AdvReac Type Severity Reaction Status Date / Time No Known Allergies Allergy Verified 10/13/24 14:03 <Tank Anthony MD - Last Filed: 02/09/25 11:40> Review of Systems Review of Systems: All systems reviewed & are unremarkable except as noted in HPI and below <Tank Anthoyn MD - Last Filed: 02/09/25 11:40> Constitutional: Constitutional: Reports no additional constitutional complaints <Tank Anthony MD - Last Filed: 02/09/25 11:40> Eyes: Eyes: Reports no additional eye complaints <Tank Anthony MD - Last Filed: 02/09/25 11:40> ENT: Reports system reviewed and no additional complaints, except as documented <Tank Anthony MD - Last Filed: 02/09/25 11:40> Cardiovascular: Cardiovascular: Reports no additional cardiovascular complaints <Tank Anthony MD - Last Filed: 02/09/25 11:40> Respiratory: Respiratory: Reports no additional respiratory complaints <Tank Anthony MD - Last Filed: 02/09/25 11:40> Gastrointestinal: Gastrointestinal: Reports no additional gastrointestinal complaints <Tank Anthony MD - Last Filed: 02/09/25 11:40> Musculoskeletal: Musculoskeletal: Reports no additional musculoskeletal complaints <Tank Anthony MD - Last Filed: 02/09/25 11:40> Neurologic: Reports system reviewed and no additional complaints, except as documented <Tank Anthony MD - Last Filed: 02/09/25 11:40> FOR[facility]LY [facility], [facility] Past Medical History Medical History: Medical History (Updated 01/25/25 @ 18:37 by Dewayne Garcia MD) CVA (cerebral vascular accident) (~03/2024) 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 Right kidney stone Hx of colonic polyps Tobacco abuse Elevated homocysteine COPD (chronic obstructive pulmonary disease) Vitamin D deficiency Hearing loss ASHD (arteriosclerotic heart disease) A-fib Hyperlipidemia Benign essential hypertension Diabetes mellitus type 2, insulin dependent <Tank Anthony MD - Last Filed: 02/09/25 11:40> Surgical History Surgical History: Surgical History H/O aortic valve replacement <Tank Anthony MD - Last Filed: 02/09/25 11:40> Family History Family History: Family History Father Family history of malignant neoplasm Other Family history of cardiovascular disease Family history of pancreatic cancer <Tank Anthony MD - Last Filed: 02/09/25 11:40> Social History Social History: Social History (Updated 01/18/25 @ 05:19 by Zoe Gregg DO) Social History: Code status: Full code (per EMR) Surrogate decision maker: Russell (son) Smoking packs per day: 1 Smoking cigarettes per day: 20.0 Years smoked: 60 Smoking pack-years: 60.00 Smoking status: Current every day smoker Tobacco type: cigarettes Second hand tobacco smoke exposure: Yes Alcohol intake: never Substance use: never Substance use type: does not use Do You Feel Safe in your Home?: Yes Lack of Transportation: No Lack of Food: Never True Current Housing: I Have Housing Concerned About Future Housing: No Difficulty Paying Gas/Electric Bills: No Difficulty Paying for Meds: No Currently Unemployed: No Education: High School Diploma/GED Difficulty w/ Childcare or Family Care: No Living arrangements: with family Additional living arrangements comments: The patient's grandson lives with him. Patient raised 2 sons. 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 HEAD: Normocephalic, atraumatic. EYES: PERRLA and EOMI. ENT: Nares clear, no rhinorrhea or epistaxis. Mucous membranes moist. NECK: Supple. CHEST: Clear to auscultation. No respiratory distress. HEART: Regular rate and rhythm. No murmur heard. Normal peripheral pulses. ABDOMEN: Soft, nontender, nondistended, normal active bowel sounds. EXTREMITIES: Normal range of motion. No edema. SKIN: Warm, dry, no rash. NEURO: No focal deficits. Alert and oriented x3. PSYCH: Normal mood and affect. <Tank Anthony MD - Last Filed: 02/09/25 11:40> Course Course Emergency Course: Patient presently has no complaints his white count is elevated she will be admitted waiting on a UA. <Tank Anthony MD - Last Filed: 02/09/25 11:40> Vital Signs Vital signs: Vital Signs Temperature 36.7 C 01/17/25 16:20 Pulse Rate 97 01/17/25 16:20 Respiratory Rate 18 01/17/25 16:20 Blood Pressure 75/45 L 01/17/25 16:20 Pulse Oximetry 97 01/17/25 16:20 Oxygen Delivery Room Air 01/17/25 16:20 Temperature 36.6 C 01/26/25 08:00 Pulse Rate 73 01/26/25 09:25 Respiratory Rate 20 01/26/25 08:00 Blood Pressure 122/52 L 01/26/25 08:00 Pulse Oximetry 99 01/26/25 08:00 Oxygen Delivery Room Air 01/26/25 08:00 Oxygen Flow Rate 1 01/21/25 21:48 Fraction of Inspired Oxygen 01/22/25 21:00 <Tank Anthony MD - Last Filed: 02/09/25 11:40> Vital Signs Temperature 36.7 C 01/17/25 16:20 Pulse Rate 97 01/17/25 16:20 Respiratory Rate 18 01/17/25 16:20 Blood Pressure 75/45 L 01/17/25 16:20 Pulse Oximetry 97 01/17/25 16:20 Oxygen Delivery Room Air 01/17/25 16:20 Temperature 36.6 C 01/26/25 08:00 Pulse Rate 73 01/26/25 09:25 Respiratory Rate 20 01/26/25 08:00 Blood Pressure 122/52 L 01/26/25 08:00 Pulse Oximetry 99 01/26/25 08:00 Oxygen Delivery Room Air 01/26/25 08:00 Oxygen Flow Rate 1 01/21/25 21:48 Fraction of Inspired Oxygen 01/22/25 21:00 <Srinivas Chan MD - Last Filed: 01/18/25 00:48> MDM - Altered Mental Status MDM Narrative Medical decision making narrative: Patient care was signed out to me by the daytime physician. Anticipated disposition at time of sign-out was admission for altered mental status, hypotension and leukocytosis. UA was pending at time of sign-out. Patient is currently afebrile but does have a white blood cell count of 26.8 and hemoglobin of 13.9. Patient does have acute kidney injury with a creatinine of 1.53 with a typical baseline of 0.8. UA was negative for infection. Chest x-ray shows no evidence of acute cardiopulmonary abnormality and head CT was negative. Patient was treated with a L of IV fluids and his blood pressure did significantly improve. <Srinivas Chan MD - Last Filed: 01/18/25 00:48> Differential Diagnosis Differential diagnosis: Likely altered mental status, delirium, hypoglycemia, hyponatremia, subarachnoid hemorrhage and sepsis <Srinivas Chan MD - Last Filed: 01/18/25 00:48> Lab Data Attestation: I reviewed the patient's lab results. <Srinivas Chan MD - Last Filed: 01/18/25 00:48> Result diagrams: 01/26/25 06:24 01/26/25 06:24 <Tank Anthony MD - Last Filed: 02/09/25 11:40> Labs: Lab Results 01/17/25 01/17/25 01/18/25 Range/Units 17:36 18:50 05:02 WBC 26.8 H 21.3 H (4.5-10.0) K/mm3 RBC 4.29 L 3.81 L (4.6-6.20) M/mm3 Hgb 13.9 L 12.4 L (14.0-18.0) g/dL Hct 41.8 L 37.6 L (42.0-52.0) % MCV 97.4 98.7 (80-100) fl MCH 32.4 32.5 (26-34) pg MCHC 33.3 33.0 (32-36) g/dl RDW 12.6 12.7 (11.5-14.5) % Plt Count 154 122 L (150-375) k/mm3 MPV 10.4 10.9 H (7.4-10.4) fl Immature Gran % (Auto) 1.5 H 2.5 H (0-0.5) % Neut % (Auto) 94.2 H 89.5 H (45.5-73.1) % Lymph % (Auto) 2.3 L 4.6 L (18.3-44.2) % Mayes % (Auto) 1.6 L 3.0 (2.6-8.5) % Eos % (Auto) 0.1 0.2 (0-4.4) % Baso % (Auto) 0.3 0.2 (0.2-1.2) % Lymph # (Auto) 0.61 L 0.99 (0.9-3.2) K/mm3 [place] # (Auto) 0.4 0.6 (0.1-0.6) K/mm3 Eos # (Auto) 0.0 0.1 (0-0.3) K/mm3 Baso # (Auto) 0.1 0.1 (0.0-0.1) K/mm3 Abs Immat Gran (auto) 0.41 H 0.54 H (0.00-0.031) K/mm3 Absolute Neuts (auto) 25.2 H 19.0 H (1.3-6.7) K/mm3 Absolute Nucleated RBC 0.000 0.000 (0.0-0.012) K/mm3 Band Neutrophils % Not Reportable Nucleated RBC % 0.0 0.0 (0.0-0.2) % Platelet Estimate Decreased (Adequate) % Immature Plt Fraction 4.4 (0.9-11.2) % Anisocytosis 1+ Ovalocytes 1+ [place] Cells 1+ Schistocytes Rare Sodium 131 L 132 L (137-145) mmol/L Potassium 4.8 4.3 (3.4-5.0) mmol/L Chloride 97 L 100 (98-107) mmol/L Carbon Dioxide 27 27 (22-30) mmol/L Anion Gap 7 5 (4-12) mmol/L BUN 51 H D 35 H D (9-20) mg/dL Creatinine 1.53 H 0.92 (0.7-1.3) mg/dL Estim Creat Clear Calc 30 49 ml/min Estimated GFR 44 L > 60 (59 - ) Glucose 200 H 197 H (65-110) mg/dL POC Capillary Glucose (65-105) mg/dl Hemoglobin A1c 7.4 H (<5.7) % Lactic Acid 2.0 (0.7-2.0) mmol/L Calcium 9.0 8.6 (8.4-10.2) mg/dL Phosphorus 2.9 (2.5-4.5) mg/dL Magnesium 2.5 H (1.6-2.3) mg/dL Total Bilirubin 0.6 (0.2-1.3) mg/dL AST 29 (17-59) U/L ALT 26 (6-50) U/L Alkaline Phosphatase 138 H (38-126) U/L Total Protein 7.0 (6.3-8.2) g/dL Albumin 3.3 L (3.5-5.1) g/dL TSH 0.936 (0.465-4.680) uIU/mL Urine Color Yellow (Yellow) Urine Appearance Clear (Clear) Urine pH 5.0 (5.0-9.0) Ur Specific [place] 1.022 (1.001-1.035) Urine Protein Negative (Negative) mg/dL Urine Glucose (UA) 3+ H (Negative) mg/dL Urine Ketones Negative (Negative) mg/dL Ur Blood (Man) Negative (Negative) Urine Nitrate Negative (Negative) Urine Bilirubin Negative (Negative) Urine Urobilinogen 1.0 (<2.0) mg/dL Leukocyte Esterase Rfl Negative (Negative) VIDA/UL Influenza A (RT-PCR) (Negative) Influenza B (RT-PCR) (Negative) RSV (RT-PCR) (Negative) SARS-CoV-2 RNA (RT-PCR) (Negative) 01/18/25 01/18/25 01/18/25 Range/Units 08:13 12:16 17:05 WBC (4.5-10.0) K/mm3 RBC (4.6-6.20) M/mm3 Hgb (14.0-18.0) g/dL Hct (42.0-52.0) % MCV (80-100) fl MCH (26-34) pg MCHC (32-36) g/dl RDW (11.5-14.5) % Plt Count (150-375) k/mm3 MPV (7.4-10.4) fl Immature Gran % (Auto) (0-0.5) % Neut % (Auto) (45.5-73.1) % Lymph % (Auto) (18.3-44.2) % Mayes % (Auto) (2.6-8.5) % Eos % (Auto) (0-4.4) % Baso % (Auto) (0.2-1.2) % Lymph # (Auto) (0.9-3.2) K/mm3 Mayes # (Auto) (0.1-0.6) K/mm3 Eos # (Auto) (0-0.3) K/mm3 Baso # (Auto) (0.0-0.1) K/mm3 Abs Immat Gran (auto) (0.00-0.031) K/mm3 Absolute Neuts (auto) (1.3-6.7) K/mm3 Absolute Nucleated RBC (0.0-0.012) K/mm3 Band Neutrophils % Nucleated RBC % (0.0-0.2) % Platelet Estimate (Adequate) % Immature Plt Fraction (0.9-11.2) % Anisocytosis Ovalocytes Price Cells Schistocytes Sodium (137-145) mmol/L Potassium (3.4-5.0) mmol/L Chloride (98-107) mmol/L Carbon Dioxide (22-30) mmol/L Anion Gap (4-12) mmol/L BUN (9-20) mg/dL Creatinine (0.7-1.3) mg/dL Estim Creat Clear Calc ml/min Estimated GFR (59 - ) Glucose (65-110) mg/dL POC Capillary Glucose 183 H 183 H 280 H (65-105) mg/dl Hemoglobin A1c (<5.7) % Lactic Acid (0.7-2.0) mmol/L Calcium (8.4-10.2) mg/dL Phosphorus (2.5-4.5) mg/dL Magnesium (1.6-2.3) mg/dL Total Bilirubin (0.2-1.3) mg/dL AST (17-59) U/L ALT (6-50) U/L Alkaline Phosphatase (38-126) U/L Total Protein (6.3-8.2) g/dL Albumin (3.5-5.1) g/dL TSH (0.465-4.680) uIU/mL Urine Color (Yellow) Urine Appearance (Clear) Urine pH (5.0-9.0) Ur Specific [place] (1.001-1.035) Urine Protein (Negative) mg/dL Urine Glucose (UA) (Negative) mg/dL Urine Ketones (Negative) mg/dL Ur Blood (Man) (Negative) Urine Nitrate (Negative) Urine Bilirubin (Negative) Urine Urobilinogen (<2.0) mg/dL Leukocyte Esterase Rfl (Negative) VIDA/UL Influenza A (RT-PCR) (Negative) Influenza B (RT-PCR) (Negative) RSV (RT-PCR) (Negative) SARS-CoV-2 RNA (RT-PCR) (Negative) 01/18/25 01/19/25 01/19/25 Range/Units 21:32 05:39 07:46 WBC 18.2 H (4.5-10.0) K/mm3 RBC 4.07 L (4.6-6.20) M/mm3 Hgb 13.3 L (14.0-18.0) g/dL Hct 40.9 L (42.0-52.0) % MCV 100.5 H (80-100) fl MCH 32.7 (26-34) pg MCHC 32.5 (32-36) g/dl RDW 12.7 (11.5-14.5) % Plt Count 107 L (150-375) k/mm3 MPV 10.4 (7.4-10.4) fl Immature Gran % (Auto) 0.5 (0-0.5) % Neut % (Auto) 89.0 H (45.5-73.1) % Lymph % (Auto) 5.8 L (18.3-44.2) % Mayes % (Auto) 4.2 (2.6-8.5) % Eos % (Auto) 0.2 (0-4.4) % Baso % (Auto) 0.3 (0.2-1.2) % Lymph # (Auto) 1.05 (0.9-3.2) K/mm3 [place]es # (Auto) 0.8 H (0.1-0.6) K/mm3 Eos # (Auto) 0.0 (0-0.3) K/mm3 Baso # (Auto) 0.1 (0.0-0.1) K/mm3 Abs Immat Gran (auto) 0.09 H (0.00-0.031) K/mm3 Absolute Neuts (auto) 16.2 H (1.3-6.7) K/mm3 Absolute Nucleated RBC 0.000 (0.0-0.012) K/mm3 Band Neutrophils % Nucleated RBC % 0.0 (0.0-0.2) % Platelet Estimate (Adequate) % Immature Plt Fraction (0.9-11.2) % Anisocytosis Ovalocytes Price Cells Schistocytes Sodium 135 L (137-145) mmol/L Potassium 4.2 (3.4-5.0) mmol/L Chloride 101 (98-107) mmol/L Carbon Dioxide 26 (22-30) mmol/L Anion Gap 8 (4-12) mmol/L BUN 24 H D (9-20) mg/dL Creatinine 0.86 (0.7-1.3) mg/dL Estim Creat Clear Calc 52 ml/min Estimated GFR > 60 (59 - ) Glucose 161 H (65-110) mg/dL POC Capillary Glucose 159 H 149 H (65-105) mg/dl Hemoglobin A1c (<5.7) % Lactic Acid (0.7-2.0) mmol/L Calcium 8.8 (8.4-10.2) mg/dL Phosphorus (2.5-4.5) mg/dL Magnesium (1.6-2.3) mg/dL Total Bilirubin (0.2-1.3) mg/dL AST (17-59) U/L ALT (6-50) U/L Alkaline Phosphatase (38-126) U/L Total Protein (6.3-8.2) g/dL Albumin (3.5-5.1) g/dL TSH (0.465-4.680) uIU/mL Urine Color (Yellow) Urine Appearance (Clear) Urine pH (5.0-9.0) Ur Specific [place] (1.001-1.035) Urine Protein (Negative) mg/dL Urine Glucose (UA) (Negative) mg/dL Urine Ketones (Negative) mg/dL Ur Blood (Man) (Negative) Urine Nitrate (Negative) Urine Bilirubin (Negative) Urine Urobilinogen (<2.0) mg/dL Leukocyte Esterase Rfl (Negative) VIDA/UL Influenza A (RT-PCR) (Negative) Influenza B (RT-PCR) (Negative) RSV (RT-PCR) (Negative) SARS-CoV-2 RNA (RT-PCR) (Negative) 01/19/25 01/19/25 Range/Units 11:44 12:41 WBC (4.5-10.0) K/mm3 RBC (4.6-6.20) M/mm3 Hgb (14.0-18.0) g/dL Hct (42.0-52.0) % MCV (80-100) fl MCH (26-34) pg MCHC (32-36) g/dl RDW (11.5-14.5) % Plt Count (150-375) k/mm3 MPV (7.4-10.4) fl Immature Gran % (Auto) (0-0.5) % Neut % (Auto) (45.5-73.1) % Lymph % (Auto) (18.3-44.2) % Mayes % (Auto) (2.6-8.5) % Eos % (Auto) (0-4.4) % Baso % (Auto) (0.2-1.2) % Lymph # (Auto) (0.9-3.2) K/mm3 [place]es # (Auto) (0.1-0.6) K/mm3 Eos # (Auto) (0-0.3) K/mm3 Baso # (Auto) (0.0-0.1) K/mm3 Abs Immat Gran (auto) (0.00-0.031) K/mm3 Absolute Neuts (auto) (1.3-6.7) K/mm3 Absolute Nucleated RBC (0.0-0.012) K/mm3 Band Neutrophils % Nucleated RBC % (0.0-0.2) % Platelet Estimate (Adequate) % Immature Plt Fraction (0.9-11.2) % Anisocytosis Ovalocytes [place] Cells Schistocytes Sodium (137-145) mmol/L Potassium (3.4-5.0) mmol/L Chloride (98-107) mmol/L Carbon Dioxide (22-30) mmol/L Anion Gap (4-12) mmol/L BUN (9-20) mg/dL Creatinine (0.7-1.3) mg/dL Estim Creat Clear Calc ml/min Estimated GFR (59 - ) Glucose (65-110) mg/dL POC Capillary Glucose 211 H (65-105) mg/dl Hemoglobin A1c (<5.7) % Lactic Acid (0.7-2.0) mmol/L Calcium (8.4-10.2) mg/dL Phosphorus (2.5-4.5) mg/dL Magnesium (1.6-2.3) mg/dL Total Bilirubin (0.2-1.3) mg/dL AST (17-59) U/L ALT (6-50) U/L Alkaline Phosphatase (38-126) U/L Total Protein (6.3-8.2) g/dL Albumin (3.5-5.1) g/dL TSH (0.465-4.680) uIU/mL Urine Color (Yellow) Urine Appearance (Clear) Urine pH (5.0-9.0) Ur Specific [place] (1.001-1.035) Urine Protein (Negative) mg/dL Urine Glucose (UA) (Negative) mg/dL Urine Ketones (Negative) mg/dL Ur Blood (Man) (Negative) Urine Nitrate (Negative) Urine Bilirubin (Negative) Urine Urobilinogen (<2.0) mg/dL Leukocyte Esterase Rfl (Negative) VIDA/UL Influenza A (RT-PCR) Negative (Negative) Influenza B (RT-PCR) Negative (Negative) RSV (RT-PCR) Negative (Negative) SARS-CoV-2 RNA (RT-PCR) Negative (Negative) <Tank Anthony MD - Last Filed: 02/09/25 11:40> Lab Results 01/17/25 01/17/25 01/18/25 Range/Units 17:36 18:50 05:02 WBC 26.8 H 21.3 H (4.5-10.0) K/mm3 RBC 4.29 L 3.81 L (4.6-6.20) M/mm3 Hgb 13.9 L 12.4 L (14.0-18.0) g/dL Hct 41.8 L 37.6 L (42.0-52.0) % MCV 97.4 98.7 (80-100) fl MCH 32.4 32.5 (26-34) pg MCHC 33.3 33.0 (32-36) g/dl RDW 12.6 12.7 (11.5-14.5) % Plt Count 154 122 L (150-375) k/mm3 MPV 10.4 10.9 H (7.4-10.4) fl Immature Gran % (Auto) 1.5 H 2.5 H (0-0.5) % Neut % (Auto) 94.2 H 89.5 H (45.5-73.1) % Lymph % (Auto) 2.3 L 4.6 L (18.3-44.2) % Mayes % (Auto) 1.6 L 3.0 (2.6-8.5) % Eos % (Auto) 0.1 0.2 (0-4.4) % Baso % (Auto) 0.3 0.2 (0.2-1.2) % Lymph # (Auto) 0.61 L 0.99 (0.9-3.2) K/mm3 [place] # (Auto) 0.4 0.6 (0.1-0.6) K/mm3 Eos # (Auto) 0.0 0.1 (0-0.3) K/mm3 Baso # (Auto) 0.1 0.1 (0.0-0.1) K/mm3 Abs Immat Gran (auto) 0.41 H 0.54 H (0.00-0.031) K/mm3 Absolute Neuts (auto) 25.2 H 19.0 H (1.3-6.7) K/mm3 Absolute Nucleated RBC 0.000 0.000 (0.0-0.012) K/mm3 Band Neutrophils % Not Reportable Nucleated RBC % 0.0 0.0 (0.0-0.2) % Platelet Estimate Decreased (Adequate) % Immature Plt Fraction 4.4 (0.9-11.2) % Anisocytosis 1+ Ovalocytes 1+ [place] Cells 1+ Schistocytes Rare Sodium 131 L 132 L (137-145) mmol/L Potassium 4.8 4.3 (3.4-5.0) mmol/L Chloride 97 L 100 (98-107) mmol/L Carbon Dioxide 27 27 (22-30) mmol/L Anion Gap 7 5 (4-12) mmol/L BUN 51 H D 35 H D (9-20) mg/dL Creatinine 1.53 H 0.92 (0.7-1.3) mg/dL Estim Creat Clear Calc 30 49 ml/min Estimated GFR 44 L > 60 (59 - ) Glucose 200 H 197 H (65-110) mg/dL POC Capillary Glucose (65-105) mg/dl Hemoglobin A1c 7.4 H (<5.7) % Lactic Acid 2.0 (0.7-2.0) mmol/L Calcium 9.0 8.6 (8.4-10.2) mg/dL Phosphorus 2.9 (2.5-4.5) mg/dL Magnesium 2.5 H (1.6-2.3) mg/dL Total Bilirubin 0.6 (0.2-1.3) mg/dL AST 29 (17-59) U/L ALT 26 (6-50) U/L Alkaline Phosphatase 138 H (38-126) U/L Total Protein 7.0 (6.3-8.2) g/dL Albumin 3.3 L (3.5-5.1) g/dL TSH 0.936 (0.465-4.680) uIU/mL Urine Color Yellow (Yellow) Urine Appearance Clear (Clear) Urine pH 5.0 (5.0-9.0) Ur Specific [place] 1.022 (1.001-1.035) Urine Protein Negative (Negative) mg/dL Urine Glucose (UA) 3+ H (Negative) mg/dL Urine Ketones Negative (Negative) mg/dL Ur Blood (Man) Negative (Negative) Urine Nitrate Negative (Negative) Urine Bilirubin Negative (Negative) Urine Urobilinogen 1.0 (<2.0) mg/dL Leukocyte Esterase Rfl Negative (Negative) VIDA/UL Influenza A (RT-PCR) (Negative) Influenza B (RT-PCR) (Negative) RSV (RT-PCR) (Negative) SARS-CoV-2 RNA (RT-PCR) (Negative) 01/18/25 01/18/25 01/18/25 Range/Units 08:13 12:16 17:05 WBC (4.5-10.0) K/mm3 RBC (4.6-6.20) M/mm3 Hgb (14.0-18.0) g/dL Hct (42.0-52.0) % MCV (80-100) fl MCH (26-34) pg MCHC (32-36) g/dl RDW (11.5-14.5) % Plt Count (150-375) k/mm3 MPV (7.4-10.4) fl Immature Gran % (Auto) (0-0.5) % Neut % (Auto) (45.5-73.1) % Lymph % (Auto) (18.3-44.2) % [place] % (Auto) (2.6-8.5) % Eos % (Auto) (0-4.4) % Baso % (Auto) (0.2-1.2) % Lymph # (Auto) (0.9-3.2) K/mm3 [place] # (Auto) (0.1-0.6) K/mm3 Eos # (Auto) (0-0.3) K/mm3 Baso # (Auto) (0.0-0.1) K/mm3 Abs Immat Gran (auto) (0.00-0.031) K/mm3 Absolute Neuts (auto) (1.3-6.7) K/mm3 Absolute Nucleated RBC (0.0-0.012) K/mm3 Band Neutrophils % Nucleated RBC % (0.0-0.2) % Platelet Estimate (Adequate) % Immature Plt Fraction (0.9-11.2) % Anisocytosis Ovalocytes Price Cells Schistocytes Sodium (137-145) mmol/L Potassium (3.4-5.0) mmol/L Chloride (98-107) mmol/L Carbon Dioxide (22-30) mmol/L Anion Gap (4-12) mmol/L BUN (9-20) mg/dL Creatinine (0.7-1.3) mg/dL Estim Creat Clear Calc ml/min Estimated GFR (59 - ) Glucose (65-110) mg/dL POC Capillary Glucose 183 H 183 H 280 H (65-105) mg/dl Hemoglobin A1c (<5.7) % Lactic Acid (0.7-2.0) mmol/L Calcium (8.4-10.2) mg/dL Phosphorus (2.5-4.5) mg/dL Magnesium (1.6-2.3) mg/dL Total Bilirubin (0.2-1.3) mg/dL AST (17-59) U/L ALT (6-50) U/L Alkaline Phosphatase (38-126) U/L Total Protein (6.3-8.2) g/dL Albumin (3.5-5.1) g/dL TSH (0.465-4.680) uIU/mL Urine Color (Yellow) Urine Appearance (Clear) Urine pH (5.0-9.0) Ur Specific [employer] (1.001-1.035) Urine Protein (Negative) mg/dL Urine Glucose (UA) (Negative) mg/dL Urine Ketones (Negative) mg/dL Ur Blood (Man) (Negative) Urine Nitrate (Negative) Urine Bilirubin (Negative) Urine Urobilinogen (<2.0) mg/dL Leukocyte Esterase Rfl (Negative) VIDA/UL Influenza A (RT-PCR) (Negative) Influenza B (RT-PCR) (Negative) RSV (RT-PCR) (Negative) SARS-CoV-2 RNA (RT-PCR) (Negative) 01/18/25 01/19/25 01/19/25 Range/Units 21:32 05:39 07:46 WBC 18.2 H (4.5-10.0) K/mm3 RBC 4.07 L (4.6-6.20) M/mm3 Hgb 13.3 L (14.0-18.0) g/dL Hct 40.9 L (42.0-52.0) % MCV 100.5 H (80-100) fl MCH 32.7 (26-34) pg MCHC 32.5 (32-36) g/dl RDW 12.7 (11.5-14.5) % Plt Count 107 L (150-375) k/mm3 MPV 10.4 (7.4-10.4) fl Immature Gran % (Auto) 0.5 (0-0.5) % Neut % (Auto) 89.0 H (45.5-73.1) % Lymph % (Auto) 5.8 L (18.3-44.2) % [place] % (Auto) 4.2 (2.6-8.5) % Eos % (Auto) 0.2 (0-4.4) % Baso % (Auto) 0.3 (0.2-1.2) % Lymph # (Auto) 1.05 (0.9-3.2) K/mm3 [place] # (Auto) 0.8 H (0.1-0.6) K/mm3 Eos # (Auto) 0.0 (0-0.3) K/mm3 Baso # (Auto) 0.1 (0.0-0.1) K/mm3 Abs Immat Gran (auto) 0.09 H (0.00-0.031) K/mm3 Absolute Neuts (auto) 16.2 H (1.3-6.7) K/mm3 Absolute Nucleated RBC 0.000 (0.0-0.012) K/mm3 Band Neutrophils % Nucleated RBC % 0.0 (0.0-0.2) % Platelet Estimate (Adequate) % Immature Plt Fraction (0.9-11.2) % Anisocytosis Ovalocytes [place] Cells Schistocytes Sodium 135 L (137-145) mmol/L Potassium 4.2 (3.4-5.0) mmol/L Chloride 101 (98-107) mmol/L Carbon Dioxide 26 (22-30) mmol/L Anion Gap 8 (4-12) mmol/L BUN 24 H D (9-20) mg/dL Creatinine 0.86 (0.7-1.3) mg/dL Estim Creat Clear Calc 52 ml/min Estimated GFR > 60 (59 - ) Glucose 161 H (65-110) mg/dL POC Capillary Glucose 159 H 149 H (65-105) mg/dl Hemoglobin A1c (<5.7) % Lactic Acid (0.7-2.0) mmol/L Calcium 8.8 (8.4-10.2) mg/dL Phosphorus (2.5-4.5) mg/dL Magnesium (1.6-2.3) mg/dL Total Bilirubin (0.2-1.3) mg/dL AST (17-59) U/L ALT (6-50) U/L Alkaline Phosphatase (38-126) U/L Total Protein (6.3-8.2) g/dL Albumin (3.5-5.1) g/dL TSH (0.465-4.680) uIU/mL Urine Color (Yellow) Urine Appearance (Clear) Urine pH (5.0-9.0) Ur Specific [employer] (1.001-1.035) Urine Protein (Negative) mg/dL Urine Glucose (UA) (Negative) mg/dL Urine Ketones (Negative) mg/dL Ur Blood (Man) (Negative) Urine Nitrate (Negative) Urine Bilirubin (Negative) Urine Urobilinogen (<2.0) mg/dL Leukocyte Esterase Rfl (Negative) VIDA/UL Influenza A (RT-PCR) (Negative) Influenza B (RT-PCR) (Negative) RSV (RT-PCR) (Negative) SARS-CoV-2 RNA (RT-PCR) (Negative) 01/19/25 01/19/25 Range/Units 11:44 12:41 WBC (4.5-10.0) K/mm3 RBC (4.6-6.20) M/mm3 Hgb (14.0-18.0) g/dL Hct (42.0-52.0) % MCV (80-100) fl MCH (26-34) pg MCHC (32-36) g/dl RDW (11.5-14.5) % Plt Count (150-375) k/mm3 MPV (7.4-10.4) fl Immature Gran % (Auto) (0-0.5) % Neut % (Auto) (45.5-73.1) % Lymph % (Auto) (18.3-44.2) % [place] % (Auto) (2.6-8.5) % Eos % (Auto) (0-4.4) % Baso % (Auto) (0.2-1.2) % Lymph # (Auto) (0.9-3.2) K/mm3 [place] # (Auto) (0.1-0.6) K/mm3 Eos # (Auto) (0-0.3) K/mm3 Baso # (Auto) (0.0-0.1) K/mm3 Abs Immat Gran (auto) (0.00-0.031) K/mm3 Absolute Neuts (auto) (1.3-6.7) K/mm3 Absolute Nucleated RBC (0.0-0.012) K/mm3 Band Neutrophils % Nucleated RBC % (0.0-0.2) % Platelet Estimate (Adequate) % Immature Plt Fraction (0.9-11.2) % Anisocytosis Ovalocytes [place] Cells [place] Sodium (137-145) mmol/L Potassium (3.4-5.0) mmol/L Chloride (98-107) mmol/L Carbon Dioxide (22-30) mmol/L Anion Gap (4-12) mmol/L BUN (9-20) mg/dL Creatinine (0.7-1.3) mg/dL Estim Creat Clear Calc ml/min Estimated GFR (59 - ) Glucose (65-110) mg/dL POC Capillary Glucose 211 H (65-105) mg/dl Hemoglobin A1c (<5.7) % Lactic Acid (0.7-2.0) mmol/L Calcium (8.4-10.2) mg/dL Phosphorus (2.5-4.5) mg/dL Magnesium (1.6-2.3) mg/dL Total Bilirubin (0.2-1.3) mg/dL AST (17-59) U/L ALT (6-50) U/L Alkaline Phosphatase (38-126) U/L Total Protein (6.3-8.2) g/dL Albumin (3.5-5.1) g/dL TSH (0.465-4.680) uIU/mL Urine Color (Yellow) Urine Appearance (Clear) Urine pH (5.0-9.0) Ur Specific [place] (1.001-1.035) Urine Protein (Negative) mg/dL Urine Glucose (UA) (Negative) mg/dL Urine Ketones (Negative) mg/dL Ur Blood (Man) (Negative) Urine Nitrate (Negative) Urine Bilirubin (Negative) Urine Urobilinogen (<2.0) mg/dL Leukocyte Esterase Rfl (Negative) VIDA/UL Influenza A (RT-PCR) Negative (Negative) Influenza B (RT-PCR) Negative (Negative) RSV (RT-PCR) Negative (Negative) SARS-CoV-2 RNA (RT-PCR) Negative (Negative) <Srinivas Chan MD - Last Filed: 01/18/25 00:48> Imaging Data Radiologist's impression: Impressions Chest X-Ray 01/17/25 17:58 IMPRESSION: No focal infiltrate or effusion. Head CT 01/17/25 18:05 Impression: No acute intracranial hemorrhage or suspicious mass effect. Chest/Abdomen/Pelvis CT 01/17/25 21:12 IMPRESSION: No hollow or solid visceral organ injury. Acute nondisplaced fractures of the lateral margin of the left fourth fifth and sixth ribs. 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 <Srinivas Chan MD - Last Filed: 01/18/25 00:48> Discharge Plan Discharge Clinical Impression: AIDE (acute kidney injury) AMS (altered mental status) Qualifiers: Altered mental status type: unspecified Qualified Code(s): R41.82 - Altered mental status, unspecified Leukocytosis Qualifiers: Leukocytosis type: unspecified Qualified Code(s): D72.829 - Elevated white blood cell count, unspecified <Tank Anthony MD - Last Filed: 02/09/25 11:40> Patient Disposition: Still a Patient <Tank Anthony MD - Last Filed: 02/09/25 11:40> Condition: Stable <Tank Anthony MD - Last Filed: 02/09/25 11:40>
[2025-01-17 19:24] LABS: Add Urine Microscopic? NO; Appearance Urine Clear (Clear); Glucose Urine UA 3+ mg/dL (Negative); Leukocyte Esterase Ur Negative LEU/UL (Negative); Nitrate Urine Negative (Negative); Specific Grav Ur 1.022 (1.001-1.035)
[2025-01-17] MEDS: LACTATED RINGERS 1,000 ML 100 ML IV CONT (20:14)
--- NOTE | 2025-01-17 23:53 | ADMGEN ---
This patient, Moisés Yip, was admitted to Medical Room 254-01. Patient/family oriented to hospital policies and general routines including ID bracelet, bed and alarms, visiting hours, pain management, procedures, bathroom and other care routines, personal items, smoking policy, room service/diet, and visiting hours. Information on how to activate the Rapid Response Team has been discussed. Patient/Family are encouraged to report perceived risks to care and to ask questions if they do not understand what they are told or what they should do.
[2025-01-18] VITALS (12 sets, daily range): BP systolic 115–127; BP diastolic 48–56; PULSE 71–97; RESP 14–18; TEMP 36.5–37.2; O2SAT 90–97; BMI 20.1
--- NOTE | 2025-01-18 04:37 | PM.IMHP ---
H&P: HPI History of Present Illness Date/Time: 01/18/25 04:37 Chief Complaint: Not eating, refusing to take meds Narrative: 79-year-old male with a past medical history of dementia, insulin-dependent diabetes mellitus, essential hypertension, hyperlipidemia, CVA, paroxysmal atrial fibrillation on Eliquis, aortic valve replacement and chronic hearing loss who presented to the ER in the presence of family due to not taking his meds. Patient's family had left prior to the patient admission to the hospital and patient is poor historian due to his dementia. Subsequently patient has HPI and past medical history were obtained from review of past medical records. The patient reports that he got brought in because his memory was worse. Patient himself states that he does has no appetite. He has been losing weight but he does not know how much. He denies difficulty swallowing. He denies any nausea or vomiting. He denies any complaints of pain at the time my evaluation except for his left shoulder which he says is painful all the time. Family also reported the patient was having incontinence of urine. The His family reported to the ER staff that the patient has not been taking his medications as directed. He misses at least 1 or 2 doses a week of his routine meds and has refused to take his meds for the last 4 days. He had a recent fall at home. The patient denies any pain from the fall. He had a CT of his head that was negative for acute process. Chest x-ray demonstrated no acute cardiopulmonary process. But the patient has significant leukocytosis. CT and abdomen pelvis demonstrated acute appearing left 4th 5th and 6th rib fractures. Patient denies any pain on palpation of his chest. The patient is currently alert oriented person, month, year and name of the current president is he also was aware that was in the hospital but did not know which hospital. Nursing staff reports that the patient was not oriented to month when they evaluated him. The patient admits that his memory has been getting worse. Review of Systems Review of Systems: 12 systems were reviewed with pertinent positives and negatives per HPI. Except as documented in the HPI, all other systems were reviewed and are negative. Review of systems provided by the patient is not all that reliable given patient's history of dementia. [facility] Past Medical History Medical History (Updated 01/18/25 @ 05:27 by Zoe Gregg DO) CVA (cerebral vascular accident) (~03/2024) 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 Right kidney stone Hx of colonic polyps Tobacco abuse Elevated homocysteine COPD (chronic obstructive pulmonary disease) Vitamin D deficiency Hearing loss ASHD (arteriosclerotic heart disease) A-fib Hyperlipidemia Benign essential hypertension Diabetes mellitus type 2, insulin dependent Surgical History Surgical History H/O aortic valve replacement Family History Family History Father Family history of malignant neoplasm Other Family history of cardiovascular disease Family history of pancreatic cancer Social History Social History (Updated 01/18/25 @ 05:19 by Zoe Gregg DO) Social History: Code status: Full code (per EMR) Surrogate decision maker: Russell (son) Smoking packs per day: 1 Smoking cigarettes per day: 20.0 Years smoked: 60 Smoking pack-years: 60.00 Smoking status: Current every day smoker Tobacco type: cigarettes Second hand tobacco smoke exposure: Yes Alcohol intake: never Substance use: never Substance use type: does not use Do You Feel Safe in your Home?: Yes Lack of Transportation: No Lack of Food: Never True Current Housing: I Have Housing Concerned About Future Housing: No Difficulty Paying Gas/Electric Bills: No Difficulty Paying for Meds: No Currently Unemployed: No Education: High School Diploma/GED Difficulty w/ Childcare or Family Care: No Living arrangements: with family Additional living arrangements comments: The patient's grandson lives with him. Patient raised 2 sons. 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 Gender identity (if verbalized by the patient): Male Spiritual care concerns: No Meds Home Medications and Allergies Home Medications ?Medication ?Instructions ?Recorded ?Confirmed ?Type cinnamon bark 500 mg capsule 500 mg PO HS 09/07/19 01/18/25 History (Cinnamon) furosemide 20 mg tablet 10 mg (1/2 x 20 mg) PO DAILY #30 04/10/24 01/18/25 Rx tabs omega 1-oob-wha-fish oil 300 1 cap PO BID #60 caps 04/10/24 01/18/25 Rx mg-1,000 mg capsule Adult Incontinence Pads #60 ea 04/18/24 01/17/25 Rx blood-glucose meter (Blood Glucose #1 ea 04/18/24 01/17/25 Rx Monitoring kit) mecobalamin (vitamin B12) 1,000 1,000 mcg PO DAILY 04/22/24 01/18/25 History mcg chewable tablet metformin 1,000 mg tablet See Rx Instructions .Route 08/04/24 01/18/25 Rx .COMPLEX #100 tabs lisinopril 20 mg tablet See Rx Instructions .Route 08/08/24 01/18/25 Rx .COMPLEX #100 tabs potassium chloride 10 mEq See Rx Instructions .Route 08/08/24 01/18/25 Rx capsule,extended release .COMPLEX #100 caps apixaban 5 mg tablet (Eliquis) See Rx Instructions .Route 10/17/24 01/18/25 Rx .COMPLEX #120 tabs pen needle, diabetic 31 gauge x #200 ea 11/07/24 01/17/25 Rx 12/09 blood sugar diagnostic (OneTouch #200 strips 11/21/24 01/17/25 Rx Ultra Test strips) folic acid 1 mg tablet 1 mg PO HS #90 tabs 11/24/24 01/18/25 Rx donepezil 10 mg tablet 10 mg PO QHS #90 tabs 11/28/24 01/18/25 Rx insulin glargine 100 unit/mL (3 15 unit (0.15 mL) subcut BID #100 11/28/24 01/18/25 Rx mL) subcutaneous pen (Lantus mL Solostar U-100 Insulin) memantine 14 mg capsule 14 mg PO DAILY #90 ea 11/28/24 01/18/25 Rx sprinkle,extended release 24hr dapagliflozin propanediol 5 mg See Rx Instructions .Route 12/16/24 01/18/25 Rx tablet (Farxiga) .COMPLEX #100 tabs niacin 500 mg tablet,extended See Rx Instructions .Route 12/18/24 01/18/25 Rx release 24 hr .COMPLEX #100 tabs metoprolol tartrate 25 mg tablet See Rx Instructions .Route 12/31/24 01/18/25 Rx .COMPLEX #200 tabs atorvastatin 20 mg tablet 20 mg PO HS #90 tabs 01/10/25 01/18/25 Rx Allergies Allergy/AdvReac Type Severity Reaction Status Date / Time No Known Allergies Allergy Verified 10/13/24 14:03 Vital Signs Vital Signs - 24 hr 01/17/25 16:20 01/17/25 16:26 01/17/25 17:21 Temperature 98.0 F Pulse Rate 97 Respiratory Rate 18 Blood Pressure 75/45 L 89/34 L Pulse Oximetry 97 94 Oxygen Delivery Room Air Room Air 01/17/25 17:21 01/17/25 17:28 01/17/25 20:41 Temperature Pulse Rate 85 85 105 H Respiratory Rate 19 18 17 Blood Pressure 103/50 L 103/62 105/64 Pulse Oximetry 94 98 95 Oxygen Delivery Room Air 01/17/25 23:00 01/17/25 23:20 01/17/25 23:50 Temperature 98.0 F Pulse Rate 88 89 98 Respiratory Rate 22 H 14 16 Blood Pressure 108/62 125/61 121/60 Pulse Oximetry 95 96 98 Oxygen Delivery Exam Narrative: Weight 60.5 kg BMI 20.3 Const: Other: No acute distress, elderly, thin body habitus HENMT: Other: Mucous membranes are dry, no oral pharyngeal erythema, head is normocephalic atraumatic Eyes: Other: No conjunctival pallor, no scleral icterus, pupils are equal and reactive Neck: Other: No JVD, no lymphadenopathy Resp: Other: Clear to auscultation bilaterally, no increased work of breathing Cardio: Other: Regular rate, regular rhythm, no murmurs GI: Other: Soft, nontender, nondistended, positive bowel sounds Skin: Other: No jaundice, no pallor Neuro: Other: Alert oriented to person, month, year, and the fact that he is in the hospital. He does not know what hospital he is in. He has no localizing neurologic deficits noted during the course of conversation, he is mildly hard of hearing. Extrem: Other: No clubbing, cyanosis or edema, 5/5 requirements manager strength bilaterally Psych: Other: Pleasantly confused, cooperative, poor judgment and insight H&P: Results Labs Labs: Laboratory Tests 01/17/25 17:36 01/17/25 17:36 01/17/25 01/17/25 17:36 18:50 WBC 26.8 H RBC 4.29 L Hgb 13.9 L Hct 41.8 L MCV 97.4 MCH 32.4 MCHC 33.3 RDW 12.6 Plt Count 154 MPV 10.4 Immature Gran % (Auto) 1.5 H Neut % (Auto) 94.2 H Lymph % (Auto) 2.3 L [place] % (Auto) 1.6 L Eos % (Auto) 0.1 Baso % (Auto) 0.3 Lymph # (Auto) 0.61 L [place] # (Auto) 0.4 Eos # (Auto) 0.0 Baso # (Auto) 0.1 Abs Immat Gran (auto) 0.41 H Absolute Neuts (auto) 25.2 H Absolute Nucleated RBC 0.000 Nucleated RBC % 0.0 Sodium 131 L Potassium 4.8 Chloride 97 L Carbon Dioxide 27 Anion Gap 7 BUN 51 H D Creatinine 1.53 H Estim Creat Clear Calc 30 Estimated GFR 44 L Glucose 200 H Lactic Acid 2.0 Calcium 9.0 Total Bilirubin 0.6 AST 29 ALT 26 Alkaline Phosphatase 138 H Total Protein 7.0 Albumin 3.3 L TSH 0.936 Urine Color Yellow Urine Appearance Clear Urine pH 5.0 Ur Specific [place] 1.022 Urine Protein Negative Urine Glucose (UA) 3+ H Urine Ketones Negative Ur Blood (Man) Negative Urine Nitrate Negative Urine Bilirubin Negative Urine Urobilinogen 1.0 Leukocyte Esterase Rfl Negative Impressions Chest X-Ray 01/17/25 17:58 IMPRESSION: No focal infiltrate or effusion. Head CT 01/17/25 18:05 Impression: No acute intracranial hemorrhage or suspicious mass effect. Chest/Abdomen/Pelvis CT 01/17/25 21:12 IMPRESSION: No hollow or solid visceral organ injury. Acute nondisplaced fractures of the lateral margin of the left fourth fifth and sixth ribs. 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 Assessment and Plan Assessment and plan (1) AIDE (acute kidney injury): Code(s): N17.9 - Acute kidney failure, unspecified Status: Acute (2) Leukocytosis: Qualifiers: Leukocytosis type: unspecified Qualified Code(s): D72.829 - Elevated white blood cell count, unspecified Code(s): D72.829 - Elevated white blood cell count, unspecified Status: Acute (3) Urinary incontinence: Qualifiers: Urinary Incontinence type: unspecified incontinence Qualified Code(s): R32 - Unspecified urinary incontinence Code(s): R32 - Unspecified urinary incontinence Status: Acute (4) Delirium: Code(s): R41.0 - Disorientation, unspecified Status: Acute (5) Type 2 diabetes mellitus with hyperglycemia, with long-term current use of insulin: Code(s): E11.65 - Type 2 diabetes mellitus with hyperglycemia; Z79.4 - termite helper (current) use of insulin Status: Acute (6) Left rib fracture: Qualifiers: Encounter type: initial encounter Rib fracture type: multiple ribs Fracture type: closed Qualified Code(s): S22.42XA - Multiple fractures of ribs, left side, initial encounter for closed fracture Code(s): S22.32XA - Fracture of one rib, left side, initial encounter for closed fracture Status: Acute Plan Patient presented with generalized weakness, falls and worsening confusion. Patient is refusing medications and has decreased appetite. He reports that he has lost a lot a weight but on review of patient's chart the patient's weight is down about 8 kg compared to last year at this time. Criteria it fits with severe protein calorie malnutrition. Patient appears to be failure to thrive. I suspect patient's dementia is worsening but there may be some component of delirium due to acute kidney injury. Will hold the patient's home lisinopril, forming and Farxiga. Will provide IV fluid hydration and repeat CBC and BMP in a.m.. Will continue monitor strict I&O's. The patient's family does report urinary incontinence but of review of the patient's outpatient problem list it appears the patient may have some component of chronic intermittent urinary incontinence. There is no evidence of UTI. However patient is hyperglycemic and a component of his urinary incontinence could be due to hyperglycemia he with subsequent polyuria. Will place patient on long-acting insulin Lantus 10 units q.12 hours. Eyes will decrease the dose from his home Lantus because the only reason think the patient's glucoses are so elevated is because he has been noncompliant with his insulin therapy at home. Will place patient on moderate sliding scale insulin with Accu-Cheks a.c. HS. Will place on a consistent carbohydrate diet. The patient has evidence of rib fractures but denies pain on palpation of his ribcage. Even though radiology suggested rib fractures are acute patient's exam makes this seem less likely. The patient is on Eliquis at home due to his history of AFib band history of stroke. But given the patient's generalized weakness and multiple falls the risks versus benefits of continuing chronic anticoagulation need to be discussed with the patient's family when they are available. Patient has been admitted as observation status. MEDICAL DECISION MAKING NARRATIVE -Spoke with the ED provider in detail regarding patient's evaluation, workup and management -Patient seen and examined at bedside -Collaborated with patient's nurse at the bedside in detail and addressed all concerns -Labs, electrolytes, radiology, investigations and test results reviewed -ED/Consult/Nursing/Ancilliary notes on the chart reviewed and appreciated Quality VTE Prophylaxis VTE prophylaxis: pharmacologic ordered (Continue home Eliquis)
[2025-01-18 05:19] LABS: Hemoglobin A1C 7.4 % (<5.7)
[2025-01-18 05:21] LABS: Hematocrit 37.6 % (42.0-52.0); Hemoglobin 12.4 g/dL (14.0-18.0); Immature Granulocyte Percent A 2.5 % (0-0.5); Immature Platelet Fraction Pct 4.4 % (0.9-11.2); Lymphocytes Absolute Auto 0.99 K/mm3 (0.9-3.2); Mean Corpuscular HGB Conc 33.0 g/dl (32-36); Mean Corpuscular Hemoglobin 32.5 pg (26-34); Mean Corpuscular Volume 98.7 fl (80-100); Nucleated Red Blood Cells Absolute Auto 0.000 K/mm3 (0.0-0.012); Nucleated Red Blood Cells Perc 0.0 % (0.0-0.2); Platelet Count Result 122 k/mm3 (150-375); Red Blood Count 3.81 M/mm3 (4.6-6.20); White Blood Count 21.3 K/mm3 (4.5-10.0)
[2025-01-18 05:29] LABS: Anion Gap 5 mmol/L (4-12); Blood Urea Nitrogen 35 mg/dL (9-20); Calcium 8.6 mg/dL (8.4-10.2); Carbon Dioxide 27 mmol/L (22-30); Chloride 100 mmol/L (98-107); Estimated CRCL calculation 49 ml/min; Estimated Glomerular Filt Rate > 60; Glucose 197 mg/dL (65-110); Magnesium 2.5 mg/dL (1.6-2.3); Potassium 4.3 mmol/L (3.4-5.0); Sodium 132 mmol/L (137-145)
[2025-01-18 06:04] LABS: Anisocytosis 1+; Burr Cells 1+; Ovalocytes 1+; Schistocytes Rare
--- NOTE | 2025-01-18 09:09 | P.PNIM_ITS ---
Progress Note: A&P Assessment and Plan (1) AIDE (acute kidney injury): Code(s): N17.9 - Acute kidney failure, unspecified Status: Acute (2) Leukocytosis: Qualifiers: Leukocytosis type: unspecified Qualified Code(s): D72.829 - Elevated white blood cell count, unspecified Code(s): D72.829 - Elevated white blood cell count, unspecified Status: Acute (3) Urinary incontinence: Qualifiers: Urinary Incontinence type: unspecified incontinence Qualified Code(s): R32 - Unspecified urinary incontinence Code(s): R32 - Unspecified urinary incontinence Status: Acute (4) Delirium: Code(s): R41.0 - Disorientation, unspecified Status: Acute (5) Type 2 diabetes mellitus with hyperglycemia, with long-term current use of insulin: Code(s): E11.65 - Type 2 diabetes mellitus with hyperglycemia; Z79.4 - medical surgery nurse (current) use of insulin Status: Acute (6) Left rib fracture: Qualifiers: Encounter type: initial encounter Fracture type: closed Rib fracture type: multiple ribs Qualified Code(s): S22.42XA - Multiple fractures of ribs, left side, initial encounter for closed fracture Code(s): S22.32XA - Fracture of one rib, left side, initial encounter for closed fracture Status: Acute Plan Left rib fractures Not having pain to the left. Reports pain to right ribs but overall mild. Questionable fractures since unable to correlate clinically. 01/17/25 CT Chest/Abd/Pelvis No hollow or solid visceral organ injury. Acute nondisplaced fractures of the lateral margin of the left fourth fifth and sixth ribs. 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 Altered mental status Likely acute change and progression of dementia --Family interested in research assoc care placement. Grandson has been staying with him but moving out soon --A&Ox2 Elevated white count Unclear etiology. May be reactive after fall. Lungs coarse but no pneumonia on x-ray. No report of dysphagia or coughing during meals --CBC in AM --IS --UA negative Diabetes Not taking insulin at home regularly recently Blood sugars above goal Failure to thrive Follow weight, intake Time Spent With Patient Time: 57 minutes Subjective Date/time seen: 01/18/25 09:09 Interval history: Acute nondisplaced fractures of the left 4th, 5th, and 6th ribs. Patient denied pain on the left. Reported pain on the right today. Spoke with son and patient has had gradual memory loss. Not taking insulin recently. When I asked him about how much insulin he takes with his meals he answered with numbers that didnt' make sense in context and sounded like a phone number. Patient does not have capacity to make decisions. Son is decision maker Would like research assoc care Review of Systems Review of Systems: 12 systems were reviewed with pertinent positives and negatives per HPI. Except as documented in the HPI, all other systems were reviewed and are negative. Review of systems provided by the patient is not all that reliable given patient's history of dementia. Exam Narrative: General - Awake and alert. No acute distress Eyes - PERRLA, EOM intact ENT - No thrush, No erythema Neck - No noticeable or palpable swelling Lymph Nodes - No lymphadenopathy Cardiovascular - RRR no m/r/g, no JVD Lungs: Clear to auscultation, No wheezing, use of accessory muscles, no crackles Skin - Skin warm and dry, no wounds or rashes Abdomen - Normal bowel sounds, abdomen soft and nontender Extremities - No edema, cyanosis or clubbing Musculoskeletal - 5/5 strength, normal range of motion, no swollen or erythematous joints. Neurological ? Alert and oriented x 3, CN 2-12 grossly intact. Psych: Normal mood and affect Objective Data Vital Signs Vital Signs: Vital Signs - 24 hr 01/17/25 16:20 01/17/25 16:26 01/17/25 17:21 Temperature 98.0 F Pulse Rate 97 Respiratory Rate 18 Blood Pressure 75/45 L 89/34 L Pulse Oximetry 97 94 Oxygen Delivery Room Air Room Air 01/17/25 17:21 01/17/25 17:28 01/17/25 20:41 Temperature Pulse Rate 85 85 105 H Respiratory Rate 19 18 17 Blood Pressure 103/50 L 103/62 105/64 Pulse Oximetry 94 98 95 Oxygen Delivery Room Air 01/17/25 23:00 01/17/25 23:20 01/17/25 23:50 Temperature 98.0 F Pulse Rate 88 89 98 Respiratory Rate 22 H 14 16 Blood Pressure 108/62 125/61 121/60 Pulse Oximetry 95 96 98 Oxygen Delivery 01/18/25 00:00 01/18/25 04:00 01/18/25 07:11 Temperature 98.0 F Pulse Rate 76 79 80 Respiratory Rate 16 Blood Pressure 118/56 L Pulse Oximetry 95 Oxygen Delivery 01/18/25 07:40 Temperature Pulse Rate Respiratory Rate Blood Pressure Pulse Oximetry 95 Oxygen Delivery Room Air Intake/Output Intake/Output: Intake & Output 01/15/25 01/16/25 01/17/25 01/18/25 23:59 23:59 23:59 23:59 Intake Total 150 Output Total 700 Balance -550 Meds/Results Medications: Active Medications Generic Name Dose Route Start Last Admin Trade Name Freq PRN Reason Stop Dose Admin Apixaban 5 mg 01/18/25 09:00 Apixaban 5 Mg Tablet PO Q12HR [facility] Cyanocobalamin 1,000 mcg 01/18/25 09:00 Cyanocobalamin 1,000 Mcg Tablet PO QAM [facility] Dextrose 12.5 gm 01/18/25 04:46 Dextrose 50% 25 Gm/50 Ml Syringe IV PUSH PRN PRN Hypoglycemia Protocol Donepezil HCl 10 mg 01/18/25 21:00 Donepezil Hcl 10 Mg Tablet PO QHS JADYN Folic Acid 1 mg 01/18/25 21:00 Folic Acid 1 Mg Tablet PO HS [facility] Glucagon 1 mg 01/18/25 04:46 Glucagon For Inj 1 Mg Vial IM PRN PRN Hypoglycemia Protocol Glucose 15 gm 01/18/25 04:46 Glucose Oral Gel 15 Gm Of Glucse In 37.5 Gm Tube PO PRN PRN Hypoglycemia Protocol Dextrose 1,000 mls @ 100 mls/hr 01/18/25 04:46 Dextrose 5% 1,000 Ml IVPB PRN PRN Hypoglycemia Protocol Insulin Aspart 3 - 6 units 01/18/25 08:00 01/18/25 08:46 Insulin Aspart (*Bkc) 100 Units/Ml SUB-Q Not Given TIDWM [facility] Protocol Insulin Glargine 10 units 01/18/25 09:00 Insulin Glargine (*Bkc) 100 Units/Ml SUB-Q BID [facility] Metoprolol Tartrate 25 mg 01/18/25 09:00 Metoprolol Tartrate 25 Mg Tablet PO Q12HR [facility] Radiology Results: ITS Impressions Chest X-Ray 01/17/25 17:58 IMPRESSION: No focal infiltrate or effusion. Head CT 01/17/25 18:05 Impression: No acute intracranial hemorrhage or suspicious mass effect. Chest/Abdomen/Pelvis CT 01/17/25 21:12 IMPRESSION: No hollow or solid visceral organ injury. Acute nondisplaced fractures of the lateral margin of the left fourth fifth and sixth ribs. 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 Labs Labs: Laboratory Results - last 24 hr 01/17/25 01/17/25 01/18/25 17:36 18:50 05:02 WBC 26.8 H 21.3 H RBC 4.29 L 3.81 L Hgb 13.9 L 12.4 L Hct 41.8 L 37.6 L MCV 97.4 98.7 MCH 32.4 32.5 MCHC 33.3 33.0 RDW 12.6 12.7 Plt Count 154 122 L MPV 10.4 10.9 H Immature Gran % (Auto) 1.5 H 2.5 H Neut % (Auto) 94.2 H 89.5 H Lymph % (Auto) 2.3 L 4.6 L [place] % (Auto) 1.6 L 3.0 Eos % (Auto) 0.1 0.2 Baso % (Auto) 0.3 0.2 Lymph # (Auto) 0.61 L 0.99 [place] # (Auto) 0.4 0.6 Eos # (Auto) 0.0 0.1 Baso # (Auto) 0.1 0.1 Abs Immat Gran (auto) 0.41 H 0.54 H Absolute Neuts (auto) 25.2 H 19.0 H Absolute Nucleated RBC 0.000 0.000 Band Neutrophils % Not Reportable Nucleated RBC % 0.0 0.0 Platelet Estimate Decreased % Immature Plt Fraction 4.4 Anisocytosis 1+ Ovalocytes 1+ [place] Cells 1+ Schistocytes Rare Sodium 131 L 132 L Potassium 4.8 4.3 Chloride 97 L 100 Carbon Dioxide 27 27 Anion Gap 7 5 BUN 51 H D 35 H D Creatinine 1.53 H 0.92 Estim Creat Clear Calc 30 49 Estimated GFR 44 L > 60 Glucose 200 H 197 H POC Capillary Glucose Hemoglobin A1c 7.4 H Lactic Acid 2.0 Calcium 9.0 8.6 Phosphorus 2.9 Magnesium 2.5 H Total Bilirubin 0.6 AST 29 ALT 26 Alkaline Phosphatase 138 H Total Protein 7.0 Albumin 3.3 L TSH 0.936 Urine Color Yellow Urine Appearance Clear Urine pH 5.0 Ur Specific [place] 1.022 Urine Protein Negative Urine Glucose (UA) 3+ H Urine Ketones Negative Ur Blood (Man) Negative Urine Nitrate Negative Urine Bilirubin Negative Urine Urobilinogen 1.0 Leukocyte Esterase Rfl Negative 01/18/25 08:13 WBC RBC Hgb Hct MCV MCH MCHC RDW Plt Count MPV Immature Gran % (Auto) Neut % (Auto) Lymph % (Auto) [place] % (Auto) Eos % (Auto) Baso % (Auto) Lymph # (Auto) [place] # (Auto) Eos # (Auto) Baso # (Auto) Abs Immat Gran (auto) Absolute Neuts (auto) Absolute Nucleated RBC Band Neutrophils % Nucleated RBC % Platelet Estimate % Immature Plt Fraction Anisocytosis Ovalocytes [place] Cells Schistocytes Sodium Potassium Chloride Carbon Dioxide Anion Gap BUN Creatinine Estim Creat Clear Calc Estimated GFR Glucose POC Capillary Glucose 183 H Hemoglobin A1c Lactic Acid Calcium Phosphorus Magnesium Total Bilirubin AST ALT Alkaline Phosphatase Total Protein Albumin TSH Urine Color Urine Appearance Urine pH Ur Specific [place] Urine Protein Urine Glucose (UA) Urine Ketones Ur Blood (Man) Urine Nitrate Urine Bilirubin Urine Urobilinogen Leukocyte Esterase Rfl Quality VTE Prophylaxis VTE prophylaxis: pharmacologic ordered (Continue home Eliquis) Hospitalist MIPS Advance Care Plan I have confirmed that the patient's Advanced Care Plan is present, code status is documented, or surrogate decision maker is listed in patient medical record.: Yes Medication Reconciliation I have utilized all available resources to obtain, update and review the patients current medications (includes all prescriptions, OTC, herbals, cannabis, and nutritional supplements).: Yes
[2025-01-18] MEDS: APIXABAN 5 MG TABLET PO ×2 (09:35→20:59)
[2025-01-18] MEDS: CYANOCOBALAMIN 1,000 MCG TABLET 1000 MCG PO (09:35)
[2025-01-18] MEDS: INSULIN GLARGINE (*BKC) 100 UNITS/ML 10 UNITS SUB-Q ×2 (09:36→17:10)
[2025-01-18] MEDS: METOPROLOL TARTRATE 25 MG TABLET PO ×2 (09:36→20:59)
[2025-01-18] MEDS: INSULIN ASPART (*BKC) 100 UNITS/ML SUB-Q (17:10)
[2025-01-18] MEDS: DONEPEZIL HCL 10 MG TABLET PO (21:00)
[2025-01-18] MEDS: FOLIC ACID 1 MG TABLET PO (21:00)
[2025-01-19] VITALS (11 sets, daily range): BP systolic 103–127; BP diastolic 43–59; PULSE 66–111; RESP 14–24; TEMP 36.6; O2SAT 93–96
[2025-01-19 05:53] LABS: Hematocrit 40.9 % (42.0-52.0); Hemoglobin 13.3 g/dL (14.0-18.0); Immature Granulocyte Percent A 0.5 % (0-0.5); Lymphocytes Absolute Auto 1.05 K/mm3 (0.9-3.2); Mean Corpuscular HGB Conc 32.5 g/dl (32-36); Mean Corpuscular Hemoglobin 32.7 pg (26-34); Mean Corpuscular Volume 100.5 fl (80-100); Nucleated Red Blood Cells Absolute Auto 0.000 K/mm3 (0.0-0.012); Nucleated Red Blood Cells Perc 0.0 % (0.0-0.2); Platelet Count Result 107 k/mm3 (150-375); Red Blood Count 4.07 M/mm3 (4.6-6.20); White Blood Count 18.2 K/mm3 (4.5-10.0)
[2025-01-19 06:25] LABS: Anion Gap 8 mmol/L (4-12); Blood Urea Nitrogen 24 mg/dL (9-20); Calcium 8.8 mg/dL (8.4-10.2); Carbon Dioxide 26 mmol/L (22-30); Chloride 101 mmol/L (98-107); Estimated CRCL calculation 52 ml/min; Estimated Glomerular Filt Rate > 60; Glucose 161 mg/dL (65-110); Potassium 4.2 mmol/L (3.4-5.0); Sodium 135 mmol/L (137-145)
--- NOTE | 2025-01-19 08:08 | P.CDI_ITS ---
CDI Query Clarification Request BMI: 20.1 Nutritional Diagnostic Statement: Please refer to the comprehensive nutrition assessment for further information. If you agree with diagnosis of Severe protein calorie malnutrition related to chronic loss of appetite, dementia as evidenced by intakes <75% needs >1 month; weight loss 8%/3 months; severe muscle wasting and fat loss. Please specify severity if known: * Mild * Moderate * Severe * Other/Unknown <Una Medina RN - Last Filed: 01/19/25 08:09> Clarified Diagnosis Clarified Diagnosis: Severe protein Calorie Malnutrition Following weight <Karine Cruz APRN - Last Filed: 01/22/25 12:24>
[2025-01-19] MEDS: CYANOCOBALAMIN 1,000 MCG TABLET 1000 MCG PO (08:20)
[2025-01-19] MEDS: METOPROLOL TARTRATE 25 MG TABLET PO ×2 (08:20→20:25)
[2025-01-19] MEDS: APIXABAN 5 MG TABLET PO ×2 (08:20→20:25)
[2025-01-19] MEDS: INSULIN GLARGINE (*BKC) 100 UNITS/ML 10 UNITS SUB-Q ×2 (08:21→16:51)
--- NOTE | 2025-01-19 10:56 | PM.IMPN ---
Progress Note: A&P Assessment and Plan (1) AIDE (acute kidney injury): Code(s): N17.9 - Acute kidney failure, unspecified Status: Acute (2) Leukocytosis: Qualifiers: Leukocytosis type: unspecified Qualified Code(s): D72.829 - Elevated white blood cell count, unspecified Code(s): D72.829 - Elevated white blood cell count, unspecified Status: Acute (3) Urinary incontinence: Qualifiers: Urinary Incontinence type: unspecified incontinence Qualified Code(s): R32 - Unspecified urinary incontinence Code(s): R32 - Unspecified urinary incontinence Status: Acute (4) Delirium: Code(s): R41.0 - Disorientation, unspecified Status: Acute (5) Type 2 diabetes mellitus with hyperglycemia, with long-term current use of insulin: Code(s): E11.65 - Type 2 diabetes mellitus with hyperglycemia; Z79.4 - intermediate frame tender (current) use of insulin Status: Acute (6) Left rib fracture: Qualifiers: Encounter type: initial encounter Rib fracture type: multiple ribs Fracture type: closed Qualified Code(s): S22.42XA - Multiple fractures of ribs, left side, initial encounter for closed fracture Code(s): S22.32XA - Fracture of one rib, left side, initial encounter for closed fracture Status: Acute (7) Sepsis: Code(s): A41.9 - Sepsis, unspecified organism Status: Acute (8) Pneumonia: Code(s): J18.9 - Pneumonia, unspecified organism Status: Acute Plan Sepsis Pneumonia Possible Community-acquired pneumonia, atypical, viral, or less likely aspiration given altered mental status/dementia. Blood cultures x2 sent today prior to antibiotics. UA was negative Tachycardic with WBC 18. Soft blood pressure, 103/43 Coarse lungs Chest x-ray possible early pneumonia. Personally reviewed image and no large consolidation --Start empiric Unasyn, azithro --follow CBC, lactate, procalcitonin Left rib fractures Not having pain to the left. Reports pain to right ribs but overall mild. Questionable fractures since unable to correlate clinically. 01/17/25 CT Chest/Abd/Pelvis No hollow or solid visceral organ injury. Acute nondisplaced fractures of the lateral margin of the left fourth fifth and sixth ribs. 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 Altered mental status Likely acute change and progression of dementia --Family interested in [facility] care placement. Grandson has been staying with him but moving out soon --A&Ox2 Elevated white count Unclear etiology. May be reactive after fall. Lungs coarse but no pneumonia on x-ray. No report of dysphagia or coughing during meals --CBC in AM --IS --UA negative Diabetes Not taking insulin at home regularly recently Blood sugars above goal Failure to thrive Follow weight, intake Eval of dementia/weight loss. Outpatient GI Time Spent With Patient Time: 48 minutes Subjective Date/time seen: 01/19/25 10:56 Interval history: WBC improving without treatment but unclear etiology Lungs coarse. No obvious aspiration. Checking COVID/Flu/RSV, blood cultures x2, repeat chest x-ray possible early pneumonia but no evidence of aspiration on bedside swallow Review of Systems Review of Systems: 12 systems were reviewed with pertinent positives and negatives per HPI. Except as documented in the HPI, all other systems were reviewed and are negative. Review of systems provided by the patient is not all that reliable given patient's history of dementia. Exam Narrative: General - Awake and alert. No acute distress Eyes - PERRLA, EOM intact ENT - No thrush, No erythema Neck - No noticeable or palpable swelling Lymph Nodes - No lymphadenopathy Cardiovascular - RRR no m/r/g, no JVD Lungs: Coarse upper airway, No wheezing, use of accessory muscles, no crackles Skin - Skin warm and dry, no wounds or rashes Abdomen - Normal bowel sounds, abdomen soft and nontender Extremities - No edema, cyanosis or clubbing Musculoskeletal - 5/5 strength, normal range of motion, no swollen or erythematous joints. Neurological ? Alert and oriented x 2, CN 2-12 grossly intact. Psych: Normal mood and affect Objective Data Vital Signs Vital Signs: Vital Signs - 24 hr 01/18/25 12:00 01/18/25 13:59 01/18/25 16:00 Temperature 97.7 F Pulse Rate 71 94 87 Respiratory Rate 18 Blood Pressure 115/48 L Pulse Oximetry 97 Oxygen Delivery Fraction of Inspired Oxygen 01/18/25 20:00 01/18/25 20:00 01/18/25 21:26 Temperature Pulse Rate 88 97 Respiratory Rate Blood Pressure Pulse Oximetry 90 Oxygen Delivery Room Air Room Air Fraction of Inspired Oxygen 01/18/25 21:28 01/19/25 00:00 01/19/25 04:00 Temperature 98.9 F Pulse Rate 86 107 H 98 Respiratory Rate 14 Blood Pressure 127/55 L Pulse Oximetry 95 Oxygen Delivery Fraction of Inspired Oxygen 01/19/25 06:48 01/19/25 08:00 01/19/25 08:00 Temperature 97.9 F Pulse Rate 100 89 Respiratory Rate 14 Blood Pressure 125/59 L Pulse Oximetry 93 Oxygen Delivery Room Air Fraction of Inspired Oxygen 01/19/25 08:20 Temperature Pulse Rate 111 H Respiratory Rate Blood Pressure Pulse Oximetry Oxygen Delivery Fraction of Inspired Oxygen Intake/Output Intake/Output: Intake & Output 01/16/25 01/17/25 01/18/25 01/19/25 23:59 23:59 23:59 23:59 Intake Total 690 680 Output Total 1675 400 Balance -985 280 Meds/Results Medications: Active Medications Generic Name Dose Route Start Last Admin Trade Name Freq PRN Reason Stop Dose Admin Apixaban 5 mg 01/18/25 09:00 01/19/25 08:20 Apixaban 5 Mg Tablet PO 5 mg Q12HR JADYN Administration Cyanocobalamin 1,000 mcg 01/18/25 09:00 01/19/25 08:20 Cyanocobalamin 1,000 Mcg Tablet PO 1,000 mcg QAM JADYN Administration Dextrose 12.5 gm 01/18/25 04:46 Dextrose 50% 25 Gm/50 Ml Syringe IV PUSH PRN PRN Hypoglycemia Protocol Donepezil HCl 10 mg 01/18/25 21:00 01/18/25 21:00 Donepezil Hcl 10 Mg Tablet PO 10 mg QHS JADYN Administration Folic Acid 1 mg 01/18/25 21:00 01/18/25 21:00 Folic Acid 1 Mg Tablet PO 1 mg HS JADYN Administration Glucagon 1 mg 01/18/25 04:46 Glucagon For Inj 1 Mg Vial IM PRN PRN Hypoglycemia Protocol Glucose 15 gm 01/18/25 04:46 Glucose Oral Gel 15 Gm Of Glucse In 37.5 Gm Tube PO PRN PRN Hypoglycemia Protocol Dextrose 1,000 mls @ 100 mls/hr 01/18/25 04:46 Dextrose 5% 1,000 Ml IVPB PRN PRN Hypoglycemia Protocol Insulin Aspart 3 - 6 units 01/18/25 08:00 01/19/25 07:51 Insulin Aspart (*Bkc) 100 Units/Ml SUB-Q Not Given TIDWM [facility] Protocol Insulin Glargine 10 units 01/18/25 09:00 01/19/25 08:21 Insulin Glargine (*Bkc) 100 Units/Ml SUB-Q 10 units BID JADYN Administration Metoprolol Tartrate 25 mg 01/18/25 09:00 01/19/25 08:20 Metoprolol Tartrate 25 Mg Tablet PO 25 mg Q12HR JADYN Administration Radiology Results: ITS Impressions Chest X-Ray 01/17/25 17:58 IMPRESSION: No focal infiltrate or effusion. Head CT 01/17/25 18:05 Impression: No acute intracranial hemorrhage or suspicious mass effect. Chest/Abdomen/Pelvis CT 01/17/25 21:12 IMPRESSION: No hollow or solid visceral organ injury. Acute nondisplaced fractures of the lateral margin of the left fourth fifth and sixth ribs. 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 Labs Labs: Laboratory Results - last 24 hr 01/18/25 01/18/25 01/18/25 12:16 17:05 21:32 WBC RBC Hgb Hct MCV MCH MCHC RDW Plt Count MPV Immature Gran % (Auto) Neut % (Auto) Lymph % (Auto) [place] % (Auto) Eos % (Auto) Baso % (Auto) Lymph # (Auto) [place] # (Auto) Eos # (Auto) Baso # (Auto) Abs Immat Gran (auto) Absolute Neuts (auto) Absolute Nucleated RBC Nucleated RBC % Sodium Potassium Chloride Carbon Dioxide Anion Gap BUN Creatinine Estim Creat Clear Calc Estimated GFR Glucose POC Capillary Glucose 183 H 280 H 159 H Calcium 01/19/25 01/19/25 05:39 07:46 WBC 18.2 H RBC 4.07 L Hgb 13.3 L Hct 40.9 L MCV 100.5 H MCH 32.7 MCHC 32.5 RDW 12.7 Plt Count 107 L MPV 10.4 Immature Gran % (Auto) 0.5 Neut % (Auto) 89.0 H Lymph % (Auto) 5.8 L [place] % (Auto) 4.2 Eos % (Auto) 0.2 Baso % (Auto) 0.3 Lymph # (Auto) 1.05 [place] # (Auto) 0.8 H Eos # (Auto) 0.0 Baso # (Auto) 0.1 Abs Immat Gran (auto) 0.09 H Absolute Neuts (auto) 16.2 H Absolute Nucleated RBC 0.000 Nucleated RBC % 0.0 Sodium 135 L Potassium 4.2 Chloride 101 Carbon Dioxide 26 Anion Gap 8 BUN 24 H D Creatinine 0.86 Estim Creat Clear Calc 52 Estimated GFR > 60 Glucose 161 H POC Capillary Glucose 149 H Calcium 8.8 Quality VTE Prophylaxis VTE prophylaxis: pharmacologic ordered (Continue home Eliquis) Hospitalist MIPS Advance Care Plan I have confirmed that the patient's Advanced Care Plan is present, code status is documented, or surrogate decision maker is listed in patient medical record.: Yes Medication Reconciliation I have utilized all available resources to obtain, update and review the patients current medications (includes all prescriptions, OTC, herbals, cannabis, and nutritional supplements).: Yes
[2025-01-19] MEDS: INSULIN ASPART (*BKC) 100 UNITS/ML SUB-Q ×2 (12:34→16:50)
--- NOTE | 2025-01-19 12:47 | PCSTNOTE ---
Please refer to the Bedside Swallow Evaluation in the EMR. Please note, silent aspiration cannot be ruled out at bedside.
[2025-01-19 13:25] LABS: Influenza A QL RT-PCR Negative (Negative); Influenza B QL RT-PCR Negative (Negative); RSV RNA, RT-PCR Negative (Negative); SARS-CoV-2 RNA PCR Negative (Negative)
[2025-01-19] MEDS: AMPICILLIN SULB 3 GM/NS 100 ML 3 GM/100 ML VIAL IVPB ×2 (18:49→23:57)
[2025-01-19] MEDS: DONEPEZIL HCL 10 MG TABLET PO (20:25)
[2025-01-19] MEDS: FOLIC ACID 1 MG TABLET PO (20:25)
[2025-01-20] VITALS (12 sets, daily range): BP systolic 90–137; BP diastolic 43–60; PULSE 69–121; RESP 18–20; TEMP 36.4–36.8; O2SAT 89–99
[2025-01-20] MEDS: AMPICILLIN SULB 3 GM/NS 100 ML 3 GM/100 ML VIAL IVPB ×3 (05:25→17:33)
[2025-01-20 06:24] LABS: Hematocrit 39.3 % (42.0-52.0); Hemoglobin 12.9 g/dL (14.0-18.0); Immature Granulocyte Percent A 0.8 % (0-0.5); Immature Platelet Fraction Pct 5.7 % (0.9-11.2); Lymphocytes Absolute Auto 0.84 K/mm3 (0.9-3.2); Mean Corpuscular HGB Conc 32.8 g/dl (32-36); Mean Corpuscular Hemoglobin 32.1 pg (26-34); Mean Corpuscular Volume 97.8 fl (80-100); Nucleated Red Blood Cells Absolute Auto 0.000 K/mm3 (0.0-0.012); Nucleated Red Blood Cells Perc 0.0 % (0.0-0.2); Platelet Count Result 92 k/mm3 (150-375); Red Blood Count 4.02 M/mm3 (4.6-6.20); White Blood Count 14.2 K/mm3 (4.5-10.0)
[2025-01-20 06:49] LABS: Procalcitonin 3.4 ng/mL
[2025-01-20 07:39] LABS: HIV 1/2 Ab P24 Ag Result Reactive (Negative); Syphilis IgG/IgM Antibody Non-Reactive (Nonreactive)
--- NOTE | 2025-01-20 07:44 | PM.IMPN ---
Progress Note: A&P Assessment and Plan (1) AIDE (acute kidney injury): Code(s): N17.9 - Acute kidney failure, unspecified Status: Acute (2) Leukocytosis: Qualifiers: Leukocytosis type: unspecified Qualified Code(s): D72.829 - Elevated white blood cell count, unspecified Code(s): D72.829 - Elevated white blood cell count, unspecified Status: Acute (3) Urinary incontinence: Qualifiers: Urinary Incontinence type: unspecified incontinence Qualified Code(s): R32 - Unspecified urinary incontinence Code(s): R32 - Unspecified urinary incontinence Status: Acute (4) Delirium: Code(s): R41.0 - Disorientation, unspecified Status: Acute (5) Type 2 diabetes mellitus with hyperglycemia, with long-term current use of insulin: Code(s): E11.65 - Type 2 diabetes mellitus with hyperglycemia; Z79.4 - continuous churn buttermaker (current) use of insulin Status: Acute (6) Left rib fracture: Qualifiers: Encounter type: initial encounter Rib fracture type: multiple ribs Fracture type: closed Qualified Code(s): S22.42XA - Multiple fractures of ribs, left side, initial encounter for closed fracture Code(s): S22.32XA - Fracture of one rib, left side, initial encounter for closed fracture Status: Acute (7) Sepsis: Code(s): A41.9 - Sepsis, unspecified organism Status: Acute (8) Pneumonia: Code(s): J18.9 - Pneumonia, unspecified organism Status: Acute (9) HIV antibody detected: Code(s): Z21 - Asymptomatic human immunodeficiency virus [HIV] infection status Status: Acute Plan Sepsis Pneumonia Possible Community-acquired pneumonia, atypical, viral, or less likely aspiration given altered mental status/dementia. Blood cultures x2 sent 01/19 prior to antibiotics, Growing GNB. UA was negative. Unclear source of bacteremia since growing GNB's. Differential includes klebsiella pneumonia vs GI source. Differential will change if CD4 count is low Tachycardic with WBC 18. Soft blood pressure, 103/43 Coarse lungs Chest x-ray possible early pneumonia. Personally reviewed image and no large consolidation --Started empiric Unasyn, azithro, change to empiric Cefepime and Flagyl pending cultures --follow CBC, lactate, procalcitonin, improving. --Consider repeat CT CAP with IV contrast after identification of organism in blood cultures --LFT's were normal on admission with exception of slightly elevated alk phos, 138. --Check urine culture, negative UA but CD4 count pending --Repeat labs in AM Left rib fractures Not having pain to the left. Reports pain to right ribs but overall mild. Questionable fractures since unable to correlate clinically. 01/17/25 CT Chest/Abd/Pelvis No hollow or solid visceral organ injury. Acute nondisplaced fractures of the lateral margin of the left fourth fifth and sixth ribs. 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 Altered mental status Likely acute change and progression of dementia --Family interested in manager long term care care placement. Grandson has been staying with him but moving out soon --A&Ox2 --HIV ab positive, RPR negative. Elevated white count Unclear etiology. May be reactive after fall. Lungs coarse but no pneumonia on x-ray. No report of dysphagia or coughing during meals --CBC in AM --IS --UA negative Diabetes Not taking insulin at home regularly recently Blood sugars above goal Constipation Schedule miralax and senna Failure to thrive Follow weight, intake Eval of dementia/weight loss. Outpatient GI HIV antibody positive lab confirmed with a second test. Viral load pending so possiblity of a false positive Patient and family not yet aware. Waiting for viral load. Will have to talk to patient and son since patient does not have capacity Screen for G/C/trich CD4 count, G6PD, HIV genotype pending, quantiferon gold TB test Time Spent With Patient Time: 63 minutes Subjective Date/time seen: 01/20/25 07:44 Interval history: Blood cultures + GNB x2. White count improving. He denies diarrhea. HIV ab positive, viral load pending. Patient not yet aware. Will wait for viral load to discuss since not yet confirmed positive and will need to speak to patient and son about it. Patient does not have a full understanding Review of Systems Review of Systems: 12 systems were reviewed with pertinent positives and negatives per HPI. Except as documented in the HPI, all other systems were reviewed and are negative. Review of systems provided by the patient is not all that reliable given patient's history of dementia. Exam Narrative: General - Awake and alert. No acute distress Eyes - PERRLA, EOM intact ENT - No thrush, No erythema Neck - No noticeable or palpable swelling Lymph Nodes - No lymphadenopathy Cardiovascular - RRR no m/r/g, no JVD Lungs: Coarse upper airway, No wheezing, use of accessory muscles, no crackles Skin - Skin warm and dry, no wounds or rashes Abdomen - Normal bowel sounds, abdomen soft and nontender Extremities - No edema, cyanosis or clubbing Musculoskeletal - 5/5 strength, normal range of motion, no swollen or erythematous joints. Neurological ? Alert and oriented x 2, CN 2-12 grossly intact. Psych: Normal mood and affect Objective Data Vital Signs Vital Signs: Vital Signs - 24 hr 01/19/25 08:00 01/19/25 08:00 01/19/25 08:20 Temperature Pulse Rate 89 111 H Respiratory Rate Blood Pressure Pulse Oximetry Oxygen Delivery Room Air 01/19/25 11:08 01/19/25 12:00 01/19/25 12:10 Temperature Pulse Rate 87 Respiratory Rate Blood Pressure Pulse Oximetry Oxygen Delivery Room Air Room Air 01/19/25 14:00 01/19/25 16:00 01/19/25 19:59 Temperature 97.9 F 97.8 F Pulse Rate 66 104 H 105 H Respiratory Rate 14 24 H Blood Pressure 103/43 L 127/59 L Pulse Oximetry 93 96 Oxygen Delivery 01/19/25 20:00 01/19/25 20:25 01/20/25 00:00 Temperature Pulse Rate 103 H 70 77 Respiratory Rate Blood Pressure Pulse Oximetry Oxygen Delivery 01/20/25 04:00 01/20/25 06:00 Temperature 97.9 F Pulse Rate 87 80 Respiratory Rate 20 Blood Pressure 137/46 L Pulse Oximetry 97 Oxygen Delivery Intake/Output Intake/Output: Intake & Output 01/17/25 01/18/25 01/19/25 01/20/25 23:59 23:59 23:59 23:59 Intake Total 690 1140 300 Output Total 4433 176 5915 Balance -985 440 -700 Meds/Results Medications: Active Medications Generic Name Dose Route Start Last Admin Trade Name Freq PRN Reason Stop Dose Admin Apixaban 5 mg 01/18/25 09:00 01/19/25 20:25 Apixaban 5 Mg Tablet PO 5 mg Q12HR JADYN Administration Azithromycin 500 mg 01/20/25 09:00 Azithromycin 250 Mg Tablet PO 06/29/25 09:01 DAILY JADYN Cyanocobalamin 1,000 mcg 01/18/25 09:00 01/19/25 08:20 Cyanocobalamin 1,000 Mcg Tablet PO 1,000 mcg QAM JADYN Administration Dextrose 12.5 gm 01/18/25 04:46 Dextrose 50% 25 Gm/50 Ml Syringe IV PUSH PRN PRN Hypoglycemia Protocol Donepezil HCl 10 mg 01/18/25 21:00 01/19/25 20:25 Donepezil Hcl 10 Mg Tablet PO 10 mg QHS JADYN Administration Folic Acid 1 mg 01/18/25 21:00 01/19/25 20:25 Folic Acid 1 Mg Tablet PO 1 mg HS JADYN Administration Glucagon 1 mg 01/18/25 04:46 Glucagon For Inj 1 Mg Vial IM PRN PRN Hypoglycemia Protocol Glucose 15 gm 01/18/25 04:46 Glucose Oral Gel 15 Gm Of Glucse In 37.5 Gm Tube PO PRN PRN Hypoglycemia Protocol Dextrose 1,000 mls @ 100 mls/hr 01/18/25 04:46 Dextrose 5% 1,000 Ml IVPB PRN PRN Hypoglycemia Protocol Ampicillin Sodium/Sulbactam Sodium 3 gm in 100 mls @ 200 mls/hr 01/19/25 18:00 01/20/25 05:25 Unasyn 3 Gm/Ns 100 Ml IVPB 200 mls/hr Q6HR JADYN Administration Insulin Aspart 3 - 6 units 01/18/25 08:00 01/19/25 16:50 Insulin Aspart (*Bkc) 100 Units/Ml SUB-Q 3 units TIDWM JADYN Administration Protocol Insulin Glargine 10 units 01/18/25 09:00 01/19/25 16:51 Insulin Glargine (*Bkc) 100 Units/Ml SUB-Q 10 units BID JADYN Administration Metoprolol Tartrate 25 mg 01/18/25 09:00 01/19/25 20:25 Metoprolol Tartrate 25 Mg Tablet PO 25 mg Q12HR JADYN Administration Radiology Results: ITS Impressions Head CT 01/17/25 18:05 Impression: No acute intracranial hemorrhage or suspicious mass effect. Chest/Abdomen/Pelvis CT 01/17/25 21:12 IMPRESSION: No hollow or solid visceral organ injury. Acute nondisplaced fractures of the lateral margin of the left fourth fifth and sixth ribs. 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 Chest X-Ray 01/19/25 13:13 IMPRESSION: Prominent markings in the lower lobes. Early pneumonia in the left lung base is not excluded. Labs Labs: Laboratory Results - last 24 hr 01/19/25 01/19/25 01/19/25 07:46 11:44 12:41 POC Capillary Glucose 149 H 211 H Procalcitonin Syphilis IgG/IgM Ab HIV 1&2 Ab/P24 Ag 4thGn Influenza A (RT-PCR) Negative Influenza B (RT-PCR) Negative RSV (RT-PCR) Negative SARS-CoV-2 RNA (RT-PCR) Negative 01/19/25 01/19/25 01/20/25 16:43 19:57 06:00 POC Capillary Glucose 208 H 294 H Procalcitonin 3.4 Syphilis IgG/IgM Ab Non-reactive HIV 1&2 Ab/P24 Ag 4thGn Reactive Influenza A (RT-PCR) Influenza B (RT-PCR) RSV (RT-PCR) SARS-CoV-2 RNA (RT-PCR) Quality VTE Prophylaxis VTE prophylaxis: pharmacologic ordered (Continue home Eliquis) Hospitalist MIPS Advance Care Plan I have confirmed that the patient's Advanced Care Plan is present, code status is documented, or surrogate decision maker is listed in patient medical record.: Yes Medication Reconciliation I have utilized all available resources to obtain, update and review the patients current medications (includes all prescriptions, OTC, herbals, cannabis, and nutritional supplements).: Yes
[2025-01-20] MEDS: METOPROLOL TARTRATE 25 MG TABLET PO (08:57)
[2025-01-20] MEDS: APIXABAN 5 MG TABLET PO ×2 (08:57→20:16)
[2025-01-20] MEDS: AZITHROMYCIN 250 MG TABLET 500 MG PO (08:57)
[2025-01-20] MEDS: CYANOCOBALAMIN 1,000 MCG TABLET 1000 MCG PO (08:57)
[2025-01-20] MEDS: INSULIN GLARGINE (*BKC) 100 UNITS/ML 10 UNITS SUB-Q ×2 (08:58→17:33)
[2025-01-20 12:24] LABS: Vitamin B12 > 1000.0 pg/mL (239-931)
[2025-01-20] MEDS: ACETAMINOPHEN 500 MG TABLET 1000 MG PO ×2 (12:35→21:26)
[2025-01-20] MEDS: INSULIN ASPART (*BKC) 100 UNITS/ML SUB-Q (17:33)
--- NOTE | 2025-01-20 19:59 | PCRCNOTE ---
1940: Patient seen for initial instruction on IS. Patient presents with shaking and a little slow but appropriate cognitively. Spot check SpO2: 89%, placed on nasal cannula 2 L/min; IS instruct completed; shaking ceased
[2025-01-20] MEDS: CEFEPIME 2 GM/NS 50 ML 2 GM/50 ML BAG IVPB (20:13)
[2025-01-20] MEDS: SODIUM CHLORIDE 0.9% IV 500 ML IV CONT (20:14)
[2025-01-20] MEDS: DONEPEZIL HCL 10 MG TABLET PO (20:16)
[2025-01-20] MEDS: FOLIC ACID 1 MG TABLET PO (20:16)
[2025-01-20 22:13] LABS: Hematocrit 36.5 % (42.0-52.0); Hemoglobin 12.2 g/dL (14.0-18.0); Immature Granulocyte Percent A 1.5 % (0-0.5); Immature Platelet Fraction Pct 7.2 % (0.9-11.2); Lymphocytes Absolute Auto 0.40 K/mm3 (0.9-3.2); Mean Corpuscular HGB Conc 33.4 g/dl (32-36); Mean Corpuscular Hemoglobin 32.6 pg (26-34); Mean Corpuscular Volume 97.6 fl (80-100); Nucleated Red Blood Cells Absolute Auto 0.000 K/mm3 (0.0-0.012); Nucleated Red Blood Cells Perc 0.0 % (0.0-0.2); Platelet Count Result 74 k/mm3 (150-375); Red Blood Count 3.74 M/mm3 (4.6-6.20); White Blood Count 16.3 K/mm3 (4.5-10.0)
[2025-01-20 22:23] LABS: Alanine Aminotransferase 23 U/L (6-50); Albumin Level 2.6 g/dL (3.5-5.1); Alkaline Phosphatase 140 U/L (38-126); Anion Gap 8 mmol/L (4-12); Aspartate Amino Transferase 25 U/L (17-59); Bilirubin,Total 0.8 mg/dL (0.2-1.3); Blood Urea Nitrogen 40 mg/dL (9-20); Calcium 8.1 mg/dL (8.4-10.2); Carbon Dioxide 25 mmol/L (22-30); Chloride 98 mmol/L (98-107); Estimated CRCL calculation 51 ml/min; Estimated Glomerular Filt Rate > 60; Glucose 161 mg/dL (65-110); Magnesium 2.2 mg/dL (1.6-2.3); Potassium 3.9 mmol/L (3.4-5.0); Sodium 131 mmol/L (137-145); Total Protein 5.9 g/dL (6.3-8.2)
[2025-01-21] VITALS (13 sets, daily range): BP systolic 108–129; BP diastolic 40–56; PULSE 68–89; RESP 12–18; TEMP 36.4–36.8; O2SAT 99–100
--- NOTE | 2025-01-21 01:00 | PC.NURSE ---
RN noticed 11 beat run of VTACH on monitor worker, Pt converted back to Afib rhythm. Provider Notified. Will continue to monitor
[2025-01-21] MEDS: CEFEPIME 2 GM/NS 50 ML 2 GM/50 ML BAG IVPB ×2 (06:14→18:26)
--- NOTE | 2025-01-21 07:14 | P.PNIM_ITS ---
Progress Note: A&P Assessment and Plan (1) AIDE (acute kidney injury): Code(s): N17.9 - Acute kidney failure, unspecified Status: Acute (2) Leukocytosis: Qualifiers: Leukocytosis type: unspecified Qualified Code(s): D72.829 - Elevated white blood cell count, unspecified Code(s): D72.829 - Elevated white blood cell count, unspecified Status: Acute (3) Urinary incontinence: Qualifiers: Urinary Incontinence type: unspecified incontinence Qualified Code(s): R32 - Unspecified urinary incontinence Code(s): R32 - Unspecified urinary incontinence Status: Acute (4) Delirium: Code(s): R41.0 - Disorientation, unspecified Status: Acute (5) Type 2 diabetes mellitus with hyperglycemia, with long-term current use of insulin: Code(s): E11.65 - Type 2 diabetes mellitus with hyperglycemia; Z79.4 - salvage determiner (current) use of insulin Status: Acute (6) Left rib fracture: Qualifiers: Encounter type: initial encounter Fracture type: closed Rib fracture type: multiple ribs Qualified Code(s): S22.42XA - Multiple fractures of ribs, left side, initial encounter for closed fracture Code(s): S22.32XA - Fracture of one rib, left side, initial encounter for closed fracture Status: Acute (7) Sepsis: Code(s): A41.9 - Sepsis, unspecified organism Status: Acute (8) Pneumonia: Code(s): J18.9 - Pneumonia, unspecified organism Status: Acute (9) HIV antibody detected: Code(s): Z21 - Asymptomatic human immunodeficiency virus [HIV] infection status Status: Acute Plan Sepsis Pneumonia Possible Community-acquired pneumonia, atypical, viral, or less likely aspiration given altered mental status/dementia. Blood cultures x2 sent 01/19 prior to antibiotics, Blood cultures growing Pasturella multocida which is more likely from a scratch or bite but could be 2/2 pneumonia. Did report a fall. UA was negative. Lactate & procalcitonin normal. Tachycardic with WBC 26, has been improving. Blood pressure as low as 75/45 on 01/17. Vital signs have been stable. Has had coarse lungs. COVID/Flu/RSV negative 01/19 Chest x-ray possible early pneumonia. Personally reviewed image and no large consolidation --Started empiric Unasyn, azithro, changed to empiric Cefepime and Flagyl pending cultures since blood cultures growing GNB's and to cover possible aspiriation with altered mental status. --No evidence of aspiration on swallow evaluation by speech. --Repeat CBC today --Repeat blood cultures sent today --Considering CT CAP with IV contrast --LFT's were normal on admission with exception of slightly elevated alk phos, 138. --Check urine culture. UA was negative but unclear level of immune suppression CD4 count pending Acute Respiratory failure New oxygen requirement, 2L Also with trace LE edema, R>L 01/17 CT Chest Abdomen Pelvis No hollow or solid visceral organ injury. Acute nondisplaced fractures of the lateral margin of the left fourth fifth and sixth ribs. 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 01/19 Chest x-ray Prominent markings in the lower lobes. Early pneumonia in the left lung base is not excluded. 01/20 Chest x-ray Mild pulmonary vascular congestion, without focal infiltrate or effusion. --D-dimer, BNP, Repeat CBC --CT chest with contrast if d-dimer elevated, though overall seems less likely PE --Wean O2 for sats >92% Left rib fractures Not having pain to the left. Reports pain to right ribs but overall mild. Questionable fractures since unable to correlate clinically. 01/17/25 CT Chest/Abd/Pelvis No hollow or solid visceral organ injury. Acute nondisplaced fractures of the lateral margin of the left fourth fifth and sixth ribs. 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 Altered mental status Likely acute change and progression of dementia --Family interested in nursing home care placement. Grandson has been staying with him but moving out soon --A&Ox2 --HIV ab positive, RPR negative. Elevated white count Unclear etiology. May be reactive after fall. Lungs coarse but no pneumonia on x-ray. No report of dysphagia or coughing during meals --CBC in AM --IS --UA negative Diabetes Not taking insulin at home regularly recently Blood sugars above goal Constipation Schedule miralax and senna Failure to thrive Follow weight, intake Eval of dementia/weight loss. Outpatient GI HIV antibody positive lab confirmed with a second test. Viral load pending so possiblity of a false positive Patient and family not yet aware. Waiting for viral load. Will have to talk to patient and son since patient does not have capacity Screen for G/C/trich CD4 count, G6PD, HIV genotype pending, quantiferon gold TB test Time Spent With Patient Time: 62 minutes Personally reviewed imaging, chart Subjective Date/time seen: 01/21/25 10:15 Interval history: VSS but on 2L o2 for sats 89-99 overnight. Blood cultures + GNB x2, growing pasturella multocida. Sensitivities pending. HIV ab positive, viral load pending. Patient not yet aware. Waiting for viral load Review of Systems Review of Systems: 12 systems were reviewed with pertinent positives and negatives per HPI. Except as documented in the HPI, all other systems were reviewed and are negative. Review of systems provided by the patient is not all that reliable given goyo salamanca's history of dementia. Exam Narrative: General - Awake and alert. No acute distress Eyes - PERRLA, EOM intact ENT - No thrush, No erythema Neck - No noticeable or palpable swelling Lymph Nodes - No lymphadenopathy Cardiovascular - RRR no m/r/g, no JVD Lungs: Coarse upper airway, No wheezing, use of accessory muscles, no crackles Skin - Skin warm and dry, no wounds or rashes Abdomen - Normal bowel sounds, abdomen soft and nontender Extremities - No edema, cyanosis or clubbing Musculoskeletal - 5/5 strength, normal range of motion, no swollen or erythematous joints. Neurological ? Alert and oriented x 2, CN 2-12 grossly intact. Psych: Normal mood and affect Objective Data Vital Signs Vital Signs: Vital Signs - 24 hr 01/20/25 08:00 01/20/25 08:55 01/20/25 08:57 Temperature Pulse Rate 97 121 H Respiratory Rate Blood Pressure Pulse Oximetry Oxygen Delivery Room Air Oxygen Flow Rate 01/20/25 12:00 01/20/25 14:00 01/20/25 16:00 Temperature 97.6 F Pulse Rate 91 69 81 Respiratory Rate 18 Blood Pressure 98/43 L Pulse Oximetry 93 Oxygen Delivery Oxygen Flow Rate 01/20/25 19:40 01/20/25 19:45 01/20/25 20:00 Temperature Pulse Rate 96 Respiratory Rate 18 Blood Pressure 90/60 L Pulse Oximetry 89 L 93 Oxygen Delivery Room Air Nasal Cannula Oxygen Flow Rate 2 06/27/25 20:00 01/20/25 22:38 01/21/25 00:00 Temperature 98.2 F Pulse Rate 91 83 80 Respiratory Rate 18 Blood Pressure 123/47 L Pulse Oximetry 99 Oxygen Delivery Oxygen Flow Rate 01/21/25 00:00 01/21/25 04:00 01/21/25 04:00 Temperature 97.6 F 97.6 F Pulse Rate 76 72 68 Respiratory Rate 18 18 Blood Pressure 117/52 L 125/55 L Pulse Oximetry 99 100 Oxygen Delivery Oxygen Flow Rate Intake/Output Intake/Output: Intake & Output 01/18/25 01/19/25 01/20/25 01/21/25 23:59 23:59 23:59 23:59 Intake Total 690 1140 1200 Output Total 3015 412 1083 Balance -985 440 -300 Meds/Results Medications: Active Medications Generic Name Dose Route Start Last Admin Trade Name Freq PRN Reason Stop Dose Admin Acetaminophen 1,000 mg 01/20/25 11:45 01/20/25 21:26 Acetaminophen 500 Mg Tablet PO 1,000 mg Q6H PRN Administration Mild Pain (1-3) or Fever Apixaban 5 mg 01/18/25 09:00 01/20/25 20:16 Apixaban 5 Mg Tablet PO 5 mg Q12HR JADYN Administration Azithromycin 500 mg 01/20/25 09:00 01/20/25 08:57 Azithromycin 250 Mg Tablet PO 01/22/25 09:01 500 mg DAILY JADYN Administration Cyanocobalamin 1,000 mcg 01/18/25 09:00 01/20/25 08:57 Cyanocobalamin 1,000 Mcg Tablet PO 1,000 mcg QAM JADYN Administration Dextrose 12.5 gm 01/18/25 04:46 Dextrose 50% 25 Gm/50 Ml Syringe IV PUSH PRN PRN Hypoglycemia Protocol Donepezil HCl 10 mg 01/18/25 21:00 01/20/25 20:16 Donepezil Hcl 10 Mg Tablet PO 10 mg QHS JADYN Administration Folic Acid 1 mg 01/18/25 21:00 01/20/25 20:16 Folic Acid 1 Mg Tablet PO 1 mg HS JADYN Administration Glucagon 1 mg 01/18/25 04:46 Glucagon For Inj 1 Mg Vial IM PRN PRN Hypoglycemia Protocol Glucose 15 gm 01/18/25 04:46 Glucose Oral Gel 15 Gm Of Glucse In 37.5 Gm Tube PO PRN PRN Hypoglycemia Protocol Dextrose 1,000 mls @ 100 mls/hr 01/18/25 04:46 Dextrose 5% 1,000 Ml IVPB PRN PRN Hypoglycemia Protocol Cefepime HCl 2 gm in 50 mls @ 100 mls/hr 01/20/25 19:00 01/21/25 06:14 Maxipime 2 Gm/Ns 50 Ml IVPB 100 mls/hr Q12H JADYN Administration Insulin Aspart 3 - 6 units 01/18/25 08:00 01/20/25 17:33 Insulin Aspart (*Bkc) 100 Units/Ml SUB-Q 3 units TIDWM JADYN Administration Protocol Insulin Glargine 10 units 01/18/25 09:00 01/20/25 17:33 Insulin Glargine (*Bkc) 100 Units/Ml SUB-Q 10 units BID JADYN Administration Metoprolol Tartrate 25 mg 01/18/25 09:00 01/20/25 20:17 Metoprolol Tartrate 25 Mg Tablet PO Not Given Q12HR JADYN Metronidazole 500 mg 01/20/25 22:00 01/21/25 06:14 Metronidazole 500 Mg Tablet PO 500 mg Q8HR JADYN Administration Polyethylene Glycol 17 gm 01/21/25 09:00 Polyethylene Glycol 3350 17 Gm Powd.Pack PO BID [facility] Senna 8.6 mg 01/21/25 09:00 Sennosides 8.6 Mg Tablet PO BID [facility] Radiology Results: ITS Impressions Head CT 01/17/25 18:05 Impression: No acute intracranial hemorrhage or suspicious mass effect. Chest/Abdomen/Pelvis CT 01/17/25 21:12 IMPRESSION: No hollow or solid visceral organ injury. Acute nondisplaced fractures of the lateral margin of the left fourth fifth and sixth ribs. 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 Chest X-Ray 01/20/25 20:46 IMPRESSION: Mild pulmonary vascular congestion, without focal infiltrate or effusion. Labs Labs: Laboratory Results - last 24 hr 01/20/25 01/20/25 01/20/25 06:00 07:51 11:36 WBC 14.2 H RBC 4.02 L Hgb 12.9 L Hct 39.3 L MCV 97.8 MCH 32.1 MCHC 32.8 RDW 12.5 Plt Count 92 L MPV 11.3 H Immature Gran % (Auto) 0.8 H Neut % (Auto) 88.4 H Lymph % (Auto) 5.9 L [place] % (Auto) 4.4 Eos % (Auto) 0.4 Baso % (Auto) 0.1 L Lymph # (Auto) 0.84 L [place] # (Auto) 0.6 Eos # (Auto) 0.1 Baso # (Auto) 0.0 Abs Immat Gran (auto) 0.12 H Absolute Neuts (auto) 12.5 H Absolute Nucleated RBC 0.000 Nucleated RBC % 0.0 % Immature Plt Fraction 5.7 Sodium Potassium Chloride Carbon Dioxide Anion Gap BUN Creatinine Estim Creat Clear Calc Estimated GFR Glucose POC Capillary Glucose 131 H 181 H Lactic Acid Calcium Magnesium Total Bilirubin AST ALT Alkaline Phosphatase Total Protein Albumin Vitamin B12 > 1000.0 H Vitamin D 25-Hydroxy Folate > 20.0 H Syphilis IgG/IgM Ab Non-reactive HIV 1&2 Ab/P24 Ag 4thGn Reactive 01/20/25 01/20/25 01/20/25 17:05 19:37 21:49 WBC 16.3 H RBC 3.74 L Hgb 12.2 L Hct 36.5 L MCV 97.6 MCH 32.6 MCHC 33.4 RDW 12.7 Plt Count 74 L MPV 11.7 H Immature Gran % (Auto) 1.5 H Neut % (Auto) 92.4 H Lymph % (Auto) 2.5 L [place] % (Auto) 3.1 Eos % (Auto) 0.1 Baso % (Auto) 0.4 Lymph # (Auto) 0.40 L [place] # (Auto) 0.5 Eos # (Auto) 0.0 Baso # (Auto) 0.1 Abs Immat Gran (auto) 0.24 H Absolute Neuts (auto) 15.1 H Absolute Nucleated RBC 0.000 Nucleated RBC % 0.0 % Immature Plt Fraction 7.2 Sodium 131 L Potassium 3.9 Chloride 98 Carbon Dioxide 25 Anion Gap 8 BUN 40 H D Creatinine 0.87 Estim Creat Clear Calc 51 Estimated GFR > 60 Glucose 161 H POC Capillary Glucose 202 H 224 H Lactic Acid 1.8 Calcium 8.1 L Magnesium 2.2 Total Bilirubin 0.8 AST 25 ALT 23 Alkaline Phosphatase 140 H Total Protein 5.9 L Albumin 2.6 L Vitamin B12 Vitamin D 25-Hydroxy Folate Syphilis IgG/IgM Ab HIV 1&2 Ab/P24 Ag 4thGn 01/21/25 01/21/25 05:32 06:16 WBC RBC Hgb Hct MCV MCH MCHC RDW Plt Count MPV Immature Gran % (Auto) Neut % (Auto) Lymph % (Auto) [place] % (Auto) Eos % (Auto) Baso % (Auto) Lymph # (Auto) [place] # (Auto) Eos # (Auto) Baso # (Auto) Abs Immat Gran (auto) Absolute Neuts (auto) Absolute Nucleated RBC Nucleated RBC % % Immature Plt Fraction Sodium Potassium Chloride Carbon Dioxide Anion Gap BUN Creatinine Estim Creat Clear Calc Estimated GFR Glucose POC Capillary Glucose 153 H Lactic Acid Calcium Magnesium Total Bilirubin AST ALT Alkaline Phosphatase Total Protein Albumin Vitamin B12 Vitamin D 25-Hydroxy 42.4 Folate Syphilis IgG/IgM Ab HIV 1&2 Ab/P24 Ag 4thGn Quality VTE Prophylaxis VTE prophylaxis: pharmacologic ordered (Continue home Eliquis) Hospitalist MIPS Advance Care Plan I have confirmed that the patient's Advanced Care Plan is present, code status is documented, or surrogate decision maker is listed in patient medical record.: Yes Medication Reconciliation I have utilized all available resources to obtain, update and review the patients current medications (includes all prescriptions, OTC, herbals, cannabis, and nutritional supplements).: Yes
[2025-01-21 07:49] LABS: Trichomonas Vag PCR NOT DETECTED (NOT DETECTE)
[2025-01-21] MEDS: METOPROLOL TARTRATE 25 MG TABLET PO ×2 (08:34→20:40)
[2025-01-21] MEDS: CYANOCOBALAMIN 1,000 MCG TABLET 1000 MCG PO (08:34)
[2025-01-21] MEDS: SENNOSIDES 8.6 MG TABLET PO ×2 (08:34→17:40)
[2025-01-21] MEDS: APIXABAN 5 MG TABLET PO ×2 (08:34→20:41)
[2025-01-21] MEDS: AZITHROMYCIN 250 MG TABLET 500 MG PO (08:34)
[2025-01-21] MEDS: INSULIN GLARGINE (*BKC) 100 UNITS/ML 10 UNITS SUB-Q ×2 (08:35→17:40)
[2025-01-21] MEDS: INSULIN ASPART (*BKC) 100 UNITS/ML SUB-Q (12:54)
[2025-01-21 13:37] LABS: Hematocrit 38.8 % (42.0-52.0); Hemoglobin 12.6 g/dL (14.0-18.0); Immature Granulocyte Percent A 0.6 % (0-0.5); Immature Platelet Fraction Pct 8.0 % (0.9-11.2); Lymphocytes Absolute Auto 0.68 K/mm3 (0.9-3.2); Mean Corpuscular HGB Conc 32.5 g/dl (32-36); Mean Corpuscular Hemoglobin 32.5 pg (26-34); Mean Corpuscular Volume 100.0 fl (80-100); Nucleated Red Blood Cells Absolute Auto 0.000 K/mm3 (0.0-0.012); Nucleated Red Blood Cells Perc 0.0 % (0.0-0.2); Platelet Count Result 62 k/mm3 (150-375); Red Blood Count 3.88 M/mm3 (4.6-6.20); White Blood Count 12.3 K/mm3 (4.5-10.0)
[2025-01-21 13:52] LABS: Alanine Aminotransferase 24 U/L (6-50); Albumin Level 2.5 g/dL (3.5-5.1); Alkaline Phosphatase 118 U/L (38-126); Anion Gap 5 mmol/L (4-12); Aspartate Amino Transferase 28 U/L (17-59); Bilirubin,Total 0.7 mg/dL (0.2-1.3); Blood Urea Nitrogen 38 mg/dL (9-20); Calcium 8.3 mg/dL (8.4-10.2); Carbon Dioxide 29 mmol/L (22-30); Chloride 101 mmol/L (98-107); Estimated CRCL calculation 47 ml/min; Estimated Glomerular Filt Rate > 60; Glucose 225 mg/dL (65-110); Potassium 4.2 mmol/L (3.4-5.0); Sodium 135 mmol/L (137-145); Total Protein 5.9 g/dL (6.3-8.2)
[2025-01-21 13:54] LABS: INR 2.1; Prothrombin Time 22.9 Seconds (11.1-14.7)
[2025-01-21 14:00] LABS: NT Pro B Type Natriuretic Pept 2050 pg/mL (19.9-100)
[2025-01-21 16:18] LABS: HIV 1 RNA PCR NOT DETECTED (NOT DETECTED); HIV 1 RNA PCR NOT DETECTED copies/mL (NOT DETECTED)
[2025-01-21] MEDS: DONEPEZIL HCL 10 MG TABLET PO (20:40)
[2025-01-21] MEDS: FOLIC ACID 1 MG TABLET PO (20:40)
[2025-01-22] VITALS (16 sets, daily range): BP systolic 88–125; BP diastolic 40–56; PULSE 61–130; RESP 12–24; TEMP 36.5–36.9; O2SAT 95–100
[2025-01-22] MEDS: ACETAMINOPHEN 500 MG TABLET 1000 MG PO (05:25)
[2025-01-22] MEDS: CEFEPIME 2 GM/NS 50 ML 2 GM/50 ML BAG IVPB (05:25)
[2025-01-22 05:44] LABS: Hematocrit 45.0 % (42.0-52.0); Hemoglobin 14.3 g/dL (14.0-18.0); Immature Granulocyte Percent A 0.3 % (0-0.5); Immature Platelet Fraction Pct 8.1 % (0.9-11.2); Lymphocytes Absolute Auto 1.84 K/mm3 (0.9-3.2); Mean Corpuscular HGB Conc 31.8 g/dl (32-36); Mean Corpuscular Hemoglobin 32.4 pg (26-34); Mean Corpuscular Volume 102.0 fl (80-100); Nucleated Red Blood Cells Absolute Auto 0.000 K/mm3 (0.0-0.012); Nucleated Red Blood Cells Perc 0.0 % (0.0-0.2); Platelet Count Result 72 k/mm3 (150-375); Red Blood Count 4.41 M/mm3 (4.6-6.20); White Blood Count 6.0 K/mm3 (4.5-10.0)
[2025-01-22 05:59] LABS: Alanine Aminotransferase 29 U/L (6-50); Albumin Level 3.0 g/dL (3.5-5.1); Alkaline Phosphatase 134 U/L (38-126); Anion Gap 9 mmol/L (4-12); Aspartate Amino Transferase 29 U/L (17-59); Bilirubin,Total 1.0 mg/dL (0.2-1.3); Blood Urea Nitrogen 28 mg/dL (9-20); Calcium 8.9 mg/dL (8.4-10.2); Carbon Dioxide 29 mmol/L (22-30); Chloride 101 mmol/L (98-107); Estimated CRCL calculation 52 ml/min; Estimated Glomerular Filt Rate > 60; Glucose 85 mg/dL (65-110); Potassium 4.8 mmol/L (3.4-5.0); Sodium 139 mmol/L (137-145); Total Protein 7.0 g/dL (6.3-8.2)
[2025-01-22 06:04] LABS: NT Pro B Type Natriuretic Pept 1720 pg/mL (19.9-100)
[2025-01-22 07:02] LABS: Anisocytosis 1+; Schistocytes None Seen
--- NOTE | 2025-01-22 07:13 | P.PNIM_ITS ---
Progress Note: A&P Assessment and Plan (1) AIDE (acute kidney injury): Code(s): N17.9 - Acute kidney failure, unspecified Status: Acute (2) Urinary incontinence: Qualifiers: Urinary Incontinence type: unspecified incontinence Qualified Code(s): R32 - Unspecified urinary incontinence Code(s): R32 - Unspecified urinary incontinence Status: Acute (3) Delirium: Code(s): R41.0 - Disorientation, unspecified Status: Acute (4) Type 2 diabetes mellitus with hyperglycemia, with long-term current use of insulin: Code(s): E11.65 - Type 2 diabetes mellitus with hyperglycemia; Z79.4 - correction (current) use of insulin Status: Acute (5) Left rib fracture: Qualifiers: Encounter type: initial encounter Fracture type: closed Rib fracture type: multiple ribs Qualified Code(s): S22.42XA - Multiple fractures of ribs, left side, initial encounter for closed fracture Code(s): S22.32XA - Fracture of one rib, left side, initial encounter for closed fracture Status: Acute (6) Sepsis: Code(s): A41.9 - Sepsis, unspecified organism Status: Acute (7) Pneumonia: Code(s): J18.9 - Pneumonia, unspecified organism Status: Acute (8) HIV antibody detected: Code(s): Z21 - Asymptomatic human immunodeficiency virus [HIV] infection status Status: Acute (9) CHF exacerbation: Code(s): I50.9 - Heart failure, unspecified Status: Acute (10) Hypotension: Code(s): I95.9 - Hypotension, unspecified Status: Acute (11) Atrial fibrillation with RVR: Code(s): I48.91 - Unspecified atrial fibrillation Status: Acute Plan Hypotensive ACUTE, ACTIVE BP low this morning, 80's, dizzy and lightheaded --NS 500ml x1 --Likely related to afib with RVR but med options may be limited by hypotension --Changed metoprolol ER 25mg BID to 12.5mg q6 --Transfer to IMU for monitoring Afib with RVR CHF exacerbation ACUTE, ACTIVE Home dose Metoprolol 25 BID continued but rates up to 150-160's today. Gave additional 2.5mg IV metoprolol and rate controlled this morning but now tachy and BP 80's, lightheaded and nauseated --D-dimer elevated, BNP elevated --On apixaban 5mg BID, continuing --Cardiology consult --12 lead EKG Sepsis Bacteremia Cat Bite Blood cultures growing Pasturella multocida ACTIVE, IMPROVING Blood cultures x2 sent 01/19 prior to antibiotics, . Patient confused and did not initially report a cat bite. Has a small scab to his left hand. UA was negative. Lactate & procalcitonin normal. Initially tachycardic with WBC 26, has been improving. Blood pressure as low as 75/45 on 01/17. Vital signs have been stable for days. Has had coarse lungs. COVID/Flu/RSV negative 01/19 Chest x-ray possible early pneumonia. Personally reviewed image and no large consolidation. Also treating for pneumonia as below CT CAP was without contrast. Antibiotics: Started empiric Unasyn, azithro for possible pneumonia with coarse lungs and AMS. Changed to empiric Cefepime and Flagyl pending cultures since blood cultures growing GNB's and to cover possible aspiration. No evidence of aspiration per evaluation by speech. Cultures growing pasturella multocida and patient reported his cat bit his left hand. Unasyn 01/19-01/20, Restart 01/22-present Azithro 500 x3 doses 01/19-01/22 Cefepime 01/20-01/22 Flagyl 01/20-01/22 --Following CBC, white count improving --Blood cultures positive 01/19. Repeat blood cultures 01/21 NGTD. Follow final blood cultures. Also requested susceptibilities since read on blood cultures reported that the isolate was beta lactamase negative but A Negative result does not rule out resistance to beta-lactam antibiotics due to other mechanisms White count has been improving with Unasyn and Cefepime. Called quest to add on susceptibilities --Change Cefepime to Unasyn --Checking TTE, overall low probability of endocarditis with this organism --No evidence of abscess to left hand, x-ray left hand given report of cat bite and positive blood cultures --LFT's were normal on admission with exception of slightly elevated alk phos, 138. Acute Respiratory failure Pneumonia ACTIVE Possible Community-acquired pneumonia, atypical, viral, or less likely aspiration given altered mental status/dementia. New oxygen requirement, 2L. --No evidence of aspiration on swallow evaluation by speech. Also with trace LE edema, R>L 01/17 CT Chest Abdomen Pelvis No hollow or solid visceral organ injury. Acute nondisplaced fractures of the lateral margin of the left fourth fifth and sixth ribs. 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 01/19 Chest x-ray Prominent markings in the lower lobes. Early pneumonia in the left lung base is not excluded. 01/20 Chest x-ray Mild pulmonary vascular congestion, without focal infiltrate or effusion. --Check dopplers --Was taking apixaban inconsistently prior to admission due to confusion, but has been on since admission --No shortness of breath or chest pain. BNP 1720 TTE pending --Currently off O2. Weaning O2 for sats >92% --CT was without contrast. Consider further imaging if new symptoms CHF exacerbation ACTIVE --No shortness of breath or chest pain. 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 Grandson has been staying with him but moving out soon --A&Ox2 --HIV negative (ab positive but no viremia) RPR negative. TSH normal. B12 normal Elevated white count RESOLVED 2/2 bacteremia Diabetes Hypoglycemia MONITORING & Adjusting meds Not taking insulin at home regularly recently Blood sugars above goal, now low blood sugars Blood sugar 48 this morning --Decreased Lantus 10units BID to 10 units daily tomorrow Constipation MONITORING Scheduled miralax and senna BM documented 01/21 Failure to thrive MONITORING Weight 60kg Follow weight, intake Eval of dementia/weight loss. Outpatient GI HIV Negative HIV antibody positive RESOLVED lab confirmed ab positive with a second test. Viral load undetected Discussed with patient and son that he does not have HIV and an antibody test could be positive again in the future Screen for G/C/trich negative CD4 count, G6PD, quantiferon gold TB test were sent in case needed to start treatment Left rib fractures STABLE Not having pain to the left. Reports pain to right ribs but overall mild. Questionable fractures since unable to correlate clinically. 01/17/25 CT Chest/Abd/Pelvis No hollow or solid visceral organ injury. Acute nondisplaced fractures of the lateral margin of the left fourth fifth and sixth ribs. 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 Time Spent With Patient Time: 68 minutes Subjective Date/time seen: 01/22/25 07:13 Interval history: Afib with RVR, gave 2.5mg IV metoprolol. On RA today but hypotensive Blood sugars low. Dropped from 289 to 40 this morning. changed BID lantus to daily starting tomorrow Venous Dopplers, echo pending Blood cultures + GNB x2, growing pasturella multocida. Beta lactamase negative. Called to add on susceptibilities HIV ab positive, viral load pending. Patient not yet aware. Waiting for viral load Follow up constipation Review of Systems Review of Systems: 12 systems were reviewed with pertinent positives and negatives per HPI. Except as documented in the HPI, all other systems were reviewed and are negative. Review of systems provided by the patient is not all that reliable given patient's history of dementia. Exam Narrative: General - Awake and alert. No acute distress Eyes - PERRLA, EOM intact ENT - No thrush, No erythema Neck - No noticeable or palpable swelling Lymph Nodes - No lymphadenopathy Cardiovascular - RRR no m/r/g, no JVD Lungs: Coarse upper airway, No wheezing, use of accessory muscles, no crackles Skin - Skin warm and dry, no wounds or rashes Abdomen - Normal bowel sounds, abdomen soft and nontender Extremities - No edema, cyanosis or clubbing Musculoskeletal - 5/5 strength, normal range of motion, no swollen or erythematous joints. Neurological ? Alert and oriented x 2, CN 2-12 grossly intact. Psych: Normal mood and affect Objective Data Vital Signs Vital Signs: Vital Signs - 24 hr 01/21/25 08:00 01/21/25 08:00 01/21/25 08:34 Temperature Pulse Rate 71 73 Respiratory Rate Blood Pressure Pulse Oximetry 100 Oxygen Delivery Nasal Cannula Oxygen Flow Rate 2 01/21/25 12:00 01/21/25 12:05 01/21/25 15:03 Temperature 97.8 F 97.8 F Pulse Rate 79 71 76 Respiratory Rate 18 18 Blood Pressure 108/53 L 129/56 L Pulse Oximetry 99 100 Oxygen Delivery Oxygen Flow Rate 01/21/25 16:00 01/21/25 18:55 01/21/25 19:32 Temperature 97.7 F 98.3 F Pulse Rate 72 87 89 Respiratory Rate 18 12 Blood Pressure 110/55 L 111/40 L Pulse Oximetry 100 100 Oxygen Delivery Oxygen Flow Rate 01/21/25 20:00 01/21/25 20:00 01/21/25 20:40 Temperature Pulse Rate 72 87 Respiratory Rate Blood Pressure Pulse Oximetry 100 Oxygen Delivery Nasal Cannula Oxygen Flow Rate 1 01/21/25 21:48 01/22/25 00:00 01/22/25 00:00 Temperature 97.9 F Pulse Rate 74 67 Respiratory Rate 12 Blood Pressure 122/40 L Pulse Oximetry 99 100 Oxygen Delivery Nasal Cannula Oxygen Flow Rate 1 01/22/25 04:00 01/22/25 04:00 Temperature 98.2 F Pulse Rate 75 76 Respiratory Rate 12 Blood Pressure 125/53 L Pulse Oximetry 98 Oxygen Delivery Oxygen Flow Rate Intake/Output Intake/Output: Intake & Output 01/19/25 01/20/25 01/21/25 01/22/25 23:59 23:59 23:59 23:59 Intake Total 1140 1200 920 300 Output Total 700 1500 300 650 Balance 440 -300 620 -350 Meds/Results Medications: Active Medications Generic Name Dose Route Start Last Admin Trade Name Freq PRN Reason Stop Dose Admin Acetaminophen 1,000 mg 01/20/25 11:45 01/22/25 05:25 Acetaminophen 500 Mg Tablet PO 1,000 mg Q6H PRN Administration Mild Pain (1-3) or Fever Apixaban 5 mg 01/18/25 09:00 01/21/25 20:41 Apixaban 5 Mg Tablet PO 5 mg Q12HR JADYN Administration Azithromycin 500 mg 01/20/25 09:00 01/21/25 08:34 Azithromycin 250 Mg Tablet PO 01/22/25 09:01 500 mg DAILY JADYN Administration Cyanocobalamin 1,000 mcg 01/18/25 09:00 01/21/25 08:34 Cyanocobalamin 1,000 Mcg Tablet PO 1,000 mcg QAM JADYN Administration Dextrose 12.5 gm 01/18/25 04:46 Dextrose 50% 25 Gm/50 Ml Syringe IV PUSH PRN PRN Hypoglycemia Protocol Donepezil HCl 10 mg 01/18/25 21:00 01/21/25 20:40 Donepezil Hcl 10 Mg Tablet PO 10 mg QHS JADYN Administration Folic Acid 1 mg 01/18/25 21:00 01/21/25 20:40 Folic Acid 1 Mg Tablet PO 1 mg HS JADYN Administration Glucagon 1 mg 01/18/25 04:46 Glucagon For Inj 1 Mg Vial IM PRN PRN Hypoglycemia Protocol Glucose 15 gm 01/18/25 04:46 Glucose Oral Gel 15 Gm Of Glucse In 37.5 Gm Tube PO PRN PRN Hypoglycemia Protocol Dextrose 1,000 mls @ 100 mls/hr 01/18/25 04:46 Dextrose 5% 1,000 Ml IVPB PRN PRN Hypoglycemia Protocol Cefepime HCl 2 gm in 50 mls @ 100 mls/hr 01/20/25 19:00 01/22/25 05:25 Maxipime 2 Gm/Ns 50 Ml IVPB 100 mls/hr Q12H JADYN Administration Insulin Aspart 3 - 6 units 01/18/25 08:00 01/21/25 17:05 Insulin Aspart (*Bkc) 100 Units/Ml SUB-Q Not Given TIDWM JADYN Protocol Insulin Glargine 10 units 01/18/25 09:00 01/21/25 17:40 Insulin Glargine (*Bkc) 100 Units/Ml SUB-Q 10 units BID JADYN Administration Metoprolol Tartrate 25 mg 01/18/25 09:00 01/21/25 20:40 Metoprolol Tartrate 25 Mg Tablet PO 25 mg Q12HR JADYN Administration Metronidazole 500 mg 01/20/25 22:00 01/22/25 05:25 Metronidazole 500 Mg Tablet PO 500 mg Q8HR JADYN Administration Polyethylene Glycol 17 gm 01/21/25 09:00 01/21/25 17:40 Polyethylene Glycol 3350 17 Gm Powd.Pack PO 17 gm BID JADYN Administration Senna 8.6 mg 01/21/25 09:00 01/21/25 17:40 Sennosides 8.6 Mg Tablet PO 8.6 mg BID JADYN Administration Radiology Results: ITS Impressions Head CT 01/17/25 18:05 Impression: No acute intracranial hemorrhage or suspicious mass effect. Chest/Abdomen/Pelvis CT 01/17/25 21:12 IMPRESSION: No hollow or solid visceral organ injury. Acute nondisplaced fractures of the lateral margin of the left fourth fifth and sixth ribs. 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 Chest X-Ray 01/20/25 20:46 IMPRESSION: Mild pulmonary vascular congestion, without focal infiltrate or effusion. Labs Labs: Laboratory Results - last 24 hr 01/20/25 01/21/25 01/21/25 09:19 00:29 08:05 WBC RBC Hgb Hct MCV MCH MCHC RDW Plt Count MPV Immature Gran % (Auto) Neut % (Auto) Lymph % (Auto) [place] % (Auto) Eos % (Auto) Baso % (Auto) Lymph # (Auto) [place] # (Auto) Eos # (Auto) Baso # (Auto) Abs Immat Gran (auto) Absolute Neuts (auto) Absolute Nucleated RBC Band Neutrophils % Nucleated RBC % Atypical Lymphocytes Platelet Estimate % Immature Plt Fraction Anisocytosis Schistocytes PT INR D-Dimer Sodium Potassium Chloride Carbon Dioxide Anion Gap BUN Creatinine Estim Creat Clear Calc Estimated GFR Glucose POC Capillary Glucose 124 H Calcium Total Bilirubin Direct Bilirubin AST ALT Alkaline Phosphatase NT-Pro-B Natriuret Pep Total Protein Albumin HIV-1 RNA logcopies/mL Not detected HIV-1 RNA PCR copies/ml Not detected T. vaginalis (PCR) Not detected 01/21/25 01/21/25 01/21/25 12:27 13:19 16:49 WBC 12.3 H RBC 3.88 L Hgb 12.6 L Hct 38.8 L MCV 100.0 MCH 32.5 MCHC 32.5 RDW 12.8 Plt Count 62 L MPV 12.1 H Immature Gran % (Auto) 0.6 H Neut % (Auto) 90.4 H Lymph % (Auto) 5.5 L [place] % (Auto) 2.8 Eos % (Auto) 0.5 Baso % (Auto) 0.2 Lymph # (Auto) 0.68 L [place] # (Auto) 0.3 Eos # (Auto) 0.1 Baso # (Auto) 0.0 Abs Immat Gran (auto) 0.07 H Absolute Neuts (auto) 11.2 H Absolute Nucleated RBC 0.000 Band Neutrophils % Nucleated RBC % 0.0 Atypical Lymphocytes Platelet Estimate % Immature Plt Fraction 8.0 Anisocytosis Schistocytes PT 22.9 H INR 2.1 D-Dimer 1.72 H Sodium 135 L Potassium 4.2 Chloride 101 Carbon Dioxide 29 Anion Gap 5 BUN 38 H Creatinine 0.95 Estim Creat Clear Calc 47 Estimated GFR > 60 Glucose 225 H POC Capillary Glucose 248 H 168 H Calcium 8.3 L Total Bilirubin 0.7 Direct Bilirubin AST 28 ALT 24 Alkaline Phosphatase 118 NT-Pro-B Natriuret Pep 2050 H Total Protein 5.9 L Albumin 2.5 L HIV-1 RNA logcopies/mL HIV-1 RNA PCR copies/ml T. vaginalis (PCR) 01/21/25 01/22/25 19:44 05:08 WBC 6.0 RBC 4.41 L Hgb 14.3 Hct 45.0 MCV 102.0 H MCH 32.4 MCHC 31.8 L RDW 12.8 Plt Count 72 L MPV 12.6 H Immature Gran % (Auto) 0.3 Neut % (Auto) 64.1 Lymph % (Auto) 30.6 [place] % (Auto) 2.8 Eos % (Auto) 2.0 Baso % (Auto) 0.2 Lymph # (Auto) 1.84 [place] # (Auto) 0.2 Eos # (Auto) 0.1 Baso # (Auto) 0.0 Abs Immat Gran (auto) 0.02 Absolute Neuts (auto) 3.9 Absolute Nucleated RBC 0.000 Band Neutrophils % Not Reportable Nucleated RBC % 0.0 Atypical Lymphocytes Present Platelet Estimate Decreased % Immature Plt Fraction 8.1 Anisocytosis 1+ Schistocytes None seen PT INR D-Dimer Sodium 139 Potassium 4.8 Chloride 101 Carbon Dioxide 29 Anion Gap 9 BUN 28 H D Creatinine 0.85 Estim Creat Clear Calc 52 Estimated GFR > 60 Glucose 85 POC Capillary Glucose 289 H Calcium 8.9 Total Bilirubin 1.0 Direct Bilirubin 0.0 AST 29 ALT 29 Alkaline Phosphatase 134 H NT-Pro-B Natriuret Pep 1720 H Total Protein 7.0 Albumin 3.0 L HIV-1 RNA logcopies/mL HIV-1 RNA PCR copies/ml T. vaginalis (PCR) Quality VTE Prophylaxis VTE prophylaxis: pharmacologic ordered (Continue home Eliquis) Hospitalist MIPS Advance Care Plan I have confirmed that the patient's Advanced Care Plan is present, code status is documented, or surrogate decision maker is listed in patient medical record.: Yes Medication Reconciliation I have utilized all available resources to obtain, update and review the patients current medications (includes all prescriptions, OTC, herbals, cannabis, and nutritional supplements).: Yes
[2025-01-22] MEDS: METOPROLOL TARTRATE 25 MG TABLET PO (08:56)
[2025-01-22] MEDS: APIXABAN 5 MG TABLET PO ×2 (08:57→20:28)
[2025-01-22] MEDS: CYANOCOBALAMIN 1,000 MCG TABLET 1000 MCG PO (08:57)
[2025-01-22] MEDS: AZITHROMYCIN 250 MG TABLET 500 MG PO (08:57)
[2025-01-22] MEDS: SENNOSIDES 8.6 MG TABLET PO (08:57)
[2025-01-22] MEDS: AMPICILLIN SULB 3 GM/NS 100 ML 3 GM/100 ML VIAL IVPB ×3 (08:57→20:29)
--- NOTE | 2025-01-22 09:03 | ECG_ITS ---
Test Date: 2025-01-22 09:46:30 Measurements Intervals [place] Rate: 85 P: 0 OK: 0 QRS: -10 QRSD: 109 T: 31 QT: 361 QTc: 430 Interpretive Statements ATRIAL FIBRILLATION LOW QRS VOLTAGE IN LIMB LEADS INCOMPLETE RIGHT BUNDLE BRANCH BLOCK DELAYED PRECORDIAL R/S TRANSITION CONSIDER INFERIOR INFARCT, AGE INDETERMINATE BASELINE ARTIFACT- II, III, AVF ABNORMAL ECG Compared to ECG 01/17/2025 17:17:48 NO SIGNIFICANT CHANGE Electronically Signed On 01-22-2025 13:51:13 CDT by John Tracey D.O.
[2025-01-22] MEDS: METOPROLOL TARTRATE INJ 5 MG/5 ML VIAL 2.5 MG IV PUSH (09:14)
[2025-01-22] MEDS: SODIUM CHLORIDE 0.9% IV 500 ML IV CONT (11:58)
--- NOTE | 2025-01-22 13:37 | PC.NURSE ---
This patient, Moisés Yip, was transferred to IMU on 01/22/25 at 1337. Personal belongings sent with patient. Report given to TRINI Rogel. Appropriate documentation sent with patient.
[2025-01-22] MEDS: METOPROLOL TARTRATE 12.5 MG TABLET PO (18:00)
[2025-01-22] MEDS: DONEPEZIL HCL 10 MG TABLET PO (20:28)
[2025-01-22] MEDS: FOLIC ACID 1 MG TABLET PO (20:28)
[2025-01-23] VITALS (12 sets, daily range): BP systolic 101–141; BP diastolic 51–67; PULSE 64–99; RESP 18–20; TEMP 36.4–36.8; O2SAT 96–100
--- NOTE | 2025-01-23 | ECHO_ITS ---
Patient Info Name: Moisés Yip Age: 79 years : 1945 Gender: Male Ht: 68 in Wt: 132 lbs BSA: 1.69 m2 HR: 79 bpm BP: 101 / 51 mmHg Technical Quality: Good Exam Date: 01/23/2025 12:04 PM Patient Status: I Admit Date: 01/19/2025 Exam Type: CA echo doppler color flow Complete two-dimensional, color flow and Doppler transthoracic echocardiogram is performed. Staff Referring Physician: Karine Cruz Sand Technician: Charleen Villatoro Attending Provider: Karine Cruz Summary 1. Complete two-dimensional, color flow and Doppler transthoracic echocardiogram is performed. 2. Left ventricular systolic function is normal, estimated at 55-60. 3. There is mildly increased left ventricular wall thickness. 4. The left ventricular diastolic function is abnormal. 5. Left atrial chamber dimension is mildly enlarged. 6. There is severe aortic valve calcification. 7. There is mild aortic valve regurgitation. 8. There is moderate to severe aortic valve stenosis. SYLVIE 0.9cm2. mean gradient 26 mmhg. 9. There is moderate to severe mitral valve regurgitation. 10. There is mild mitral valve calcification. 11. There is moderate tricuspid valve regurgitation. 12. Severe pulmonary hypertension, estimated pulmonary arterial systolic pressure is 66 mmHg. Left Ventricle Left ventricular chamber dimension is normal. Left ventricular systolic function is normal, estimated at 55-60. There is mildly increased left ventricular wall thickness. The left ventricular diastolic function is abnormal. Right Ventricle Right ventricular chamber dimension is normal. Right ventricular systolic function is normal. Left Atria Left atrial chamber dimension is mildly enlarged. Right Atria Right atrial chamber dimension is normal. Aortic Valve The aortic valve is probable trileaflet. There is no aortic valve sclerosis. There is moderate to severe aortic valve stenosis. SYLVIE 0.9cm2. mean gradient 26 mmhg. There is mild aortic valve regurgitation. There is severe aortic valve calcification. Pulmonic Valve The pulmonic valve is normal. There is no pulmonic valve stenosis. There is no pulmonic regurgitation. Mitral Valve The mitral valve has normal leaflets. There is no mitral valve stenosis. There is moderate to severe mitral valve regurgitation. There is mild mitral valve calcification. Tricuspid Valve The tricuspid valve leaflets are normal. There is no significant tricuspid valve stenosis. There is moderate tricuspid valve regurgitation. Severe pulmonary hypertension, estimated pulmonary arterial systolic pressure is 66 mmHg. Pericardium/Pleural The pericardium appears normal. There is no pericardial effusion. Inferior Vena Cava Normal inferior vena cava with <50% collapse upon inspiration consistent with elevated right atrial pressure, 10 mmHg. Aorta The aortic root size at the sinus of Valsalva is normal. The prox ascending aorta size is normal. Left Ventricular Outflow Tract Name Value Normal LVOT 2D LVOT Diameter 2.1 cm LVOT Doppler LVOT Peak Velocity 76 cm/s LVOT Peak Gradient 2 mmHg LVOT Mean Gradient 1 mmHg LVOT VTI 17 cm LVOT VTI/AV VTI Ratio 0.2 LVOT Stroke Volume 60 ml LVOT CO 5.0 l/min LVOT CI 3.0 l/min/m2 Pulmonic Valve Name Value Normal PV Doppler PV Peak Velocity 113 cm/s PV Peak Gradient 5 mmHg Mitral Valve Name Value Normal MV Doppler MV Peak Gradient 7 mmHg MV Mean Gradient 2 mmHg MV Area (Cont Eq VTI) 2.3 cm2 MV Regurgitation Doppler MR Peak Gradient 161 mmHg MV Diastolic Function MV E Peak Velocity 118 cm/s MV A Peak Velocity 25 cm/s MV E/A 4.7 MV Decel Time (PW) 183 ms MV Annular TDI MV E/e' (Septal) 15.2 MV E/e' (Lateral) 11.0 MV E/e' (Average) 13.1 Tricuspid Valve Name Value Normal TV Regurgitation Doppler TR Peak Velocity 373 cm/s TR Peak Gradient 49 mmHg Estimated PAP/RSVP RA Pressure 10 mmHg <=5 PA Systolic Pressure 66 mmHg <36 RV Systolic Pressure 66 mmHg <36 TV Annular TDI TV Lateral Tresa s' Velocity 8.3 cm/s >=9.5 Aortic Valve Name Value Normal AV Doppler AV Peak Velocity 330 cm/s AV Peak Gradient 44 mmHg AV Mean Gradient 26 mmHg AV VTI 67 cm AV Area (Cont Eq VTI) 0.9 cm2 >=3.0 AV Area (Cont Eq Cory) 0.8 cm2 AV DI (Cory) 0.23 AV Regurgitation 2D LVOT Area 3.6 cm2 Ventricles Name Value Normal LV Dimensions 2D/MM IVS Diastolic Thickness (2D) 1.1 cm 0.6-1.0 LVID Diastole (2D) 4.3 cm 4.2-5.8 LVIW Diastolic Thickness (2D) 1.3 cm 0.6-1.0 LVID Systole (2D) 3.6 cm 2.5-4.0 LVOT Diameter 2.1 cm LV Mass (2D Cubed) 181.54 g 88.00-224.00 LV Mass Index (2D Cubed) 107 g/m2 49-115 Relative Wall Thickness (2D) 0.60 <=0.42 LV Fractional Shortening/Ejection Fraction 2D/MM LV Fractional Shortening (2D) 17 % 25-43 LV EF (2D Teichholz) 35 % LV Diastolic Volume (4C MOD) 93 ml LV EF (4C MOD) 60 % LV Diastolic Volume (2C MOD) 94 ml LV EF (2C MOD) 51 % LV Diastolic Volume (BP MOD) 95 ml 62-150 LV Diastolic Volume Index (BP MOD) 57 ml/m2 34-74 LV Systolic Volume (BP MOD) 43 ml 21-61 LV Systolic Volume Index (BP MOD) 25 ml/m2 11-31 LV EF (BP MOD) 55 % 52-72 LV Diastolic Length (4C) 7.4 cm LV Systolic Length (4C) 6.7 cm LV Stroke Volume (4C MOD) 56 ml Atria Name Value Normal LA Dimensions LA Volume (4C A-L) 108 ml LA Volume (BP A-L) 121 ml RA Dimensions RA Systolic [place] Length (4C) 6.2 cm 2.1-2.7 RA Area (4C) 20.0 cm2 <=18.0 Report Signatures
[2025-01-23] MEDS: AMPICILLIN SULB 3 GM/NS 100 ML 3 GM/100 ML VIAL IVPB ×2 (01:00→08:39)
[2025-01-23] MEDS: METOPROLOL TARTRATE 12.5 MG TABLET PO ×2 (01:01→06:14)
[2025-01-23 04:14] LABS: Hematocrit 38.4 % (42.0-52.0); Hemoglobin 12.2 g/dL (14.0-18.0); Immature Granulocyte Percent A 0.5 % (0-0.5); Immature Platelet Fraction Pct 9.0 % (0.9-11.2); Lymphocytes Absolute Auto 1.58 K/mm3 (0.9-3.2); Mean Corpuscular HGB Conc 31.8 g/dl (32-36); Mean Corpuscular Hemoglobin 31.9 pg (26-34); Mean Corpuscular Volume 100.3 fl (80-100); Nucleated Red Blood Cells Absolute Auto 0.000 K/mm3 (0.0-0.012); Nucleated Red Blood Cells Perc 0.0 % (0.0-0.2); Platelet Count Result 65 k/mm3 (150-375); Red Blood Count 3.83 M/mm3 (4.6-6.20); White Blood Count 17.6 K/mm3 (4.5-10.0)
[2025-01-23 04:32] LABS: Anion Gap 3 mmol/L (4-12); Blood Urea Nitrogen 27 mg/dL (9-20); Calcium 8.1 mg/dL (8.4-10.2); Carbon Dioxide 31 mmol/L (22-30); Chloride 101 mmol/L (98-107); Estimated CRCL calculation 57 ml/min; Estimated Glomerular Filt Rate > 60; Glucose 191 mg/dL (65-110); Potassium 4.2 mmol/L (3.4-5.0); Sodium 135 mmol/L (137-145)
[2025-01-23 04:36] LABS: Anisocytosis 1+
[2025-01-23 04:39] LABS: Burr Cells 1+; Schistocytes None Seen
--- NOTE | 2025-01-23 08:08 | P.CDI_ITS ---
CDI Query Clarification Request Please specify type of heart failure if known. * Systolic * Diastolic * Combined Systolic and Diastolic * Unknown The medical chart reflects the following: Acute Respiratory failure Pneumonia ACTIVE Possible Community-acquired pneumonia, atypical, viral, or less likely aspiration given altered mental status/dementia. New oxygen requirement, 2L. --No evidence of aspiration on swallow evaluation by speech. Also with trace LE edema, R>L 01/17 CT Chest Abdomen Pelvis No hollow or solid visceral organ injury. Acute nondisplaced fractures of the lateral margin of the left fourth fifth and sixth ribs. 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 01/19 Chest x-ray Prominent markings in the lower lobes. Early pneumonia in the left lung base is not excluded. 01/20 Chest x-ray Mild pulmonary vascular congestion, without focal infiltrate or effusion. --Check dopplers --Was taking apixaban inconsistently prior to admission due to confusion, but has been on since admission --No shortness of breath or chest pain. BNP 1720 TTE pending --Currently off O2. Weaning O2 for sats >92% --CT was without contrast. Consider further imaging if new symptoms CHF exacerbation ACTIVE --No shortness of breath or chest pain. --TTE pending since BNP 1720 and new oxygen requirement, currently on RA Altered mental status Likely acute change and progression of dementia MONITORING, stable --Family interested in snf care placement. Grandson has been staying with him but moving out soon --A&Ox2 --HIV negative (ab positive but no viremia) RPR negative. TSH normal. B12 jann <Una Medina RN - Last Filed: 01/23/25 08:24> Clarified Diagnosis Clarified Diagnosis: Unknown so far waiting for echo <Lisa Ly MD - Last Filed: 01/23/25 09:00>
[2025-01-23] MEDS: INSULIN GLARGINE (*BKC) 100 UNITS/ML 10 UNITS SUB-Q (08:38)
[2025-01-23] MEDS: APIXABAN 5 MG TABLET PO ×2 (08:40→21:05)
[2025-01-23] MEDS: CYANOCOBALAMIN 1,000 MCG TABLET 1000 MCG PO (08:40)
--- NOTE | 2025-01-23 08:41 | PM.IMPN ---
Progress Note: A&P Assessment and Plan (1) AIDE (acute kidney injury): Code(s): N17.9 - Acute kidney failure, unspecified Status: Acute (2) Urinary incontinence: Qualifiers: Urinary Incontinence type: unspecified incontinence Qualified Code(s): R32 - Unspecified urinary incontinence Code(s): R32 - Unspecified urinary incontinence Status: Acute (3) Delirium: Code(s): R41.0 - Disorientation, unspecified Status: Acute (4) Type 2 diabetes mellitus with hyperglycemia, with long-term current use of insulin: Code(s): E11.65 - Type 2 diabetes mellitus with hyperglycemia; Z79.4 - senior care (current) use of insulin Status: Acute (5) Left rib fracture: Qualifiers: Encounter type: initial encounter Fracture type: closed Rib fracture type: multiple ribs Qualified Code(s): S22.42XA - Multiple fractures of ribs, left side, initial encounter for closed fracture Code(s): S22.32XA - Fracture of one rib, left side, initial encounter for closed fracture Status: Acute (6) Sepsis: Code(s): A41.9 - Sepsis, unspecified organism Status: Acute (7) Pneumonia: Code(s): J18.9 - Pneumonia, unspecified organism Status: Acute (8) HIV antibody detected: Code(s): Z21 - Asymptomatic human immunodeficiency virus [HIV] infection status Status: Acute (9) CHF exacerbation: Code(s): I50.9 - Heart failure, unspecified Status: Acute (10) Hypotension: Code(s): I95.9 - Hypotension, unspecified Status: Acute (11) Atrial fibrillation with RVR: Code(s): I48.91 - Unspecified atrial fibrillation Status: Acute Plan Hypotensive ACUTE, ACTIVE BP low this morning, 80's, dizzy and lightheaded --NS 500ml x1 --Likely related to afib with RVR but med options may be limited by hypotension --Changed metoprolol ER 25mg BID to 12.5mg q6 --Transfer to IMU for monitoring Afib with RVR CHF exacerbation ACUTE, ACTIVE Home dose Metoprolol 25 BID continued but rates up to 150-160's today. Gave additional 2.5mg IV metoprolol and rate controlled this morning but now tachy and BP 80's, lightheaded and nauseated --D-dimer elevated, BNP elevated --On apixaban 5mg BID, continuing --Cardiology consult --12 lead EKG Sepsis Bacteremia Cat Bite Blood cultures growing Pasturella multocida ACTIVE, IMPROVING Blood cultures x2 sent 01/19 prior to antibiotics, . Patient confused and did not initially report a cat bite. Has a small scab to his left hand. UA was negative. Lactate & procalcitonin normal. Initially tachycardic with WBC 26, has been improving. Blood pressure as low as 75/45 on 01/17. Vital signs have been stable for days. Has had coarse lungs. COVID/Flu/RSV negative 01/19 Chest x-ray possible early pneumonia. Personally reviewed image and no large consolidation. Also treating for pneumonia as below CT CAP was without contrast. Antibiotics: Started empiric Unasyn, azithro for possible pneumonia with coarse lungs and AMS. Changed to empiric Cefepime and Flagyl pending cultures since blood cultures growing GNB's and to cover possible aspiration. No evidence of aspiration per evaluation by speech. Cultures growing pasturella multocida and patient reported his cat bit his left hand. Unasyn 01/19-01/20, Restart 01/22-present Azithro 500 x3 doses 01/19-01/22 Cefepime 01/20-01/22 Flagyl 01/20-01/22 --Following CBC, white count improving --Blood cultures positive 01/19. Repeat blood cultures 01/21 NGTD. Follow final blood cultures. Also requested susceptibilities since read on blood cultures reported that the isolate was beta lactamase negative but A Negative result does not rule out resistance to beta-lactam antibiotics due to other mechanisms White count has been improving with Unasyn and Cefepime. Called quest to add on susceptibilities --Change Cefepime to Unasyn --Checking TTE, overall low probability of endocarditis with this organism --No evidence of abscess to left hand, x-ray left hand given report of cat bite and positive blood cultures --LFT's were normal on admission with exception of slightly elevated alk phos, 138. Acute Respiratory failure Pneumonia ACTIVE Possible Community-acquired pneumonia, atypical, viral, or less likely aspiration given altered mental status/dementia. New oxygen requirement, 2L. --No evidence of aspiration on swallow evaluation by speech. Also with trace LE edema, R>L 01/17 CT Chest Abdomen Pelvis No hollow or solid visceral organ injury. Acute nondisplaced fractures of the lateral margin of the left fourth fifth and sixth ribs. 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 01/19 Chest x-ray Prominent markings in the lower lobes. Early pneumonia in the left lung base is not excluded. 01/20 Chest x-ray Mild pulmonary vascular congestion, without focal infiltrate or effusion. --Check dopplers --Was taking apixaban inconsistently prior to admission due to confusion, but has been on since admission --No shortness of breath or chest pain. BNP 1720 TTE pending --Currently off O2. Weaning O2 for sats >92% --CT was without contrast. Consider further imaging if new symptoms Chronic patient is on room air CHF exacerbation ACTIVE --No shortness of breath or chest pain. --TTE pending since BNP 1720 and new oxygen requirement, currently on RA Altered mental status Likely acute change and progression of dementia MONITORING, stable --Family interested in senior living care placement. Grandson has been staying with him but moving out soon --A&Ox2 --HIV negative (ab positive but no viremia) RPR negative. TSH normal. B12 normal Elevated white count 2/2 bacteremia changed to ceftriaxone and clindamycin today discontinue Unasyn today. Discussed with ID pharmacist Diabetes Hypoglycemia MONITORING & Adjusting meds Not taking insulin at home regularly recently Blood sugars above goal, now low blood sugars Blood sugar 48 this morning --Decreased Lantus 10units BID to 10 units daily tomorrow Constipation MONITORING Scheduled miralax and senna BM documented 01/21 Failure to thrive MONITORING Weight 60kg Follow weight, intake Eval of dementia/weight loss. Outpatient GI HIV Negative HIV antibody positive RESOLVED lab confirmed ab positive with a second test. Viral load undetected Discussed with patient and son that he does not have HIV and an antibody test could be positive again in the future Screen for G/C/trich negative CD4 count, G6PD, quantiferon gold TB test were sent in case needed to start treatment Left rib fractures STABLE Not having pain to the left. Reports pain to right ribs but overall mild. Questionable fractures since unable to correlate clinically. 01/17/25 CT Chest/Abd/Pelvis No hollow or solid visceral organ injury. Acute nondisplaced fractures of the lateral margin of the left fourth fifth and sixth ribs. 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 01/23 Patient was afebrile overnight, blood pressure stable on the lower side Heart rate is controlled Pulse ox 100% room White count is trending up, 17,600 Elevated BUN creatinine ratio 27/0.8 Blood culture grows Pasteurella multocida on January 19, repeat blood culture drawn no growth so far White blood cell is trending up, indicating infection not well control, discussed with ID pharmacist, postop Unasyn, start clindamycin and ceftriaxone IV to cover the bacteremia, animal bite, pneumonia De-escalated based on susceptibility of the blood culture. The 2nd blood culture on January 21 are negative Acute respiratory failure resolved Patient on room air Subjective Date/time seen: 01/23/25 08:41 Interval history: Patient was afebrile overnight, blood pressure stable on the lower side Heart rate is controlled Pulse ox 100% room White count is trending up, 17,600 Elevated BUN creatinine ratio 27/0.8 Blood culture grows Pasteurella multocida on January 19, repeat blood culture drawn no growth so far Exam Narrative: General - Awake and alert. No acute distress Eyes - PERRLA, EOM intact ENT - No thrush, No erythema Neck - No noticeable or palpable swelling Lymph Nodes - No lymphadenopathy Cardiovascular - RRR no m/r/g, no JVD Lungs: Coarse upper airway, No wheezing, use of accessory muscles, no crackles Skin - Skin warm and dry, no wounds or rashes Abdomen - Normal bowel sounds, abdomen soft and nontender Extremities - No edema, cyanosis or clubbing Musculoskeletal - 5/5 strength, normal range of motion, no swollen or erythematous joints. Neurological ? Alert and oriented x 2, CN 2-12 grossly intact. Psych: Normal mood and affect Objective Data Vital Signs Vital Signs: Vital Signs - 24 hr 01/22/25 08:56 01/22/25 09:05 01/22/25 09:14 Temperature Pulse Rate 130 H 130 H Respiratory Rate Blood Pressure 108/48 L Pulse Oximetry Oxygen Delivery Fraction of Inspired Oxygen 01/22/25 11:42 01/22/25 12:00 01/22/25 13:07 Temperature 97.9 F Pulse Rate 83 80 Respiratory Rate 16 Blood Pressure 88/40 L 101/47 L Pulse Oximetry 95 Oxygen Delivery Fraction of Inspired Oxygen 01/22/25 13:41 01/22/25 16:00 01/22/25 16:00 Temperature 98.4 F Pulse Rate 69 79 66 Respiratory Rate 18 24 H Blood Pressure 99/56 L 111/53 L Pulse Oximetry 98 100 Oxygen Delivery Fraction of Inspired Oxygen 01/22/25 18:00 01/22/25 18:00 01/22/25 20:00 Temperature 97.7 F Pulse Rate 82 82 64 Respiratory Rate 18 Blood Pressure 119/50 L Pulse Oximetry 98 Oxygen Delivery Fraction of Inspired Oxygen 01/22/25 20:00 01/22/25 20:00 01/22/25 21:00 Temperature Pulse Rate 64 Respiratory Rate Blood Pressure Pulse Oximetry 95 Oxygen Delivery Room Air Room Air Fraction of Inspired Oxygen 21 01/22/25 22:00 01/22/25 23:22 01/22/25 23:53 Temperature 98.3 F Pulse Rate 64 61 Respiratory Rate 18 Blood Pressure 103/46 L Pulse Oximetry 95 Oxygen Delivery Room Air Fraction of Inspired Oxygen 01/23/25 00:00 01/23/25 01:01 01/23/25 02:00 Temperature Pulse Rate 64 70 68 Respiratory Rate Blood Pressure Pulse Oximetry Oxygen Delivery Fraction of Inspired Oxygen 01/23/25 04:00 01/23/25 04:00 01/23/25 04:00 Temperature 97.9 F Pulse Rate 68 66 Respiratory Rate 18 Blood Pressure 101/51 L Pulse Oximetry 100 Oxygen Delivery Room Air Fraction of Inspired Oxygen 01/23/25 05:59 01/23/25 06:14 Temperature Pulse Rate 71 79 Respiratory Rate Blood Pressure Pulse Oximetry Oxygen Delivery Fraction of Inspired Oxygen Intake/Output Intake/Output: Intake & Output 01/20/25 01/21/25 01/22/25 01/23/25 23:59 23:59 23:59 23:59 Intake Total 3457 171 5414 350 Output Total 6244 014 7424 700 Balance -300 620 130 -350 Meds/Results Medications: Active Medications Generic Name Dose Route Start Last Admin Trade Name Freq PRN Reason Stop Dose Admin Acetaminophen 1,000 mg 01/20/25 11:45 01/22/25 05:25 Acetaminophen 500 Mg Tablet PO 1,000 mg Q6H PRN Administration Mild Pain (1-3) or Fever Apixaban 5 mg 01/18/25 09:00 01/22/25 20:28 Apixaban 5 Mg Tablet PO 5 mg Q12HR JADYN Administration Cyanocobalamin 1,000 mcg 01/18/25 09:00 01/22/25 08:57 Cyanocobalamin 1,000 Mcg Tablet PO 1,000 mcg QAM JADYN Administration Dextrose 12.5 gm 01/18/25 04:46 Dextrose 50% 25 Gm/50 Ml Syringe IV PUSH PRN PRN Hypoglycemia Protocol Donepezil HCl 10 mg 01/18/25 21:00 01/22/25 20:28 Donepezil Hcl 10 Mg Tablet PO 10 mg QHS JADYN Administration Folic Acid 1 mg 01/18/25 21:00 01/22/25 20:28 Folic Acid 1 Mg Tablet PO 1 mg HS JADYN Administration Glucagon 1 mg 01/18/25 04:46 Glucagon For Inj 1 Mg Vial IM PRN PRN Hypoglycemia Protocol Glucose 15 gm 01/18/25 04:46 Glucose Oral Gel 15 Gm Of Glucse In 37.5 Gm Tube PO PRN PRN Hypoglycemia Protocol Dextrose 1,000 mls @ 100 mls/hr 01/18/25 04:46 Dextrose 5% 1,000 Ml IVPB PRN PRN Hypoglycemia Protocol Ampicillin Sodium/Sulbactam Sodium 3 gm in 100 mls @ 200 mls/hr 01/22/25 08:00 01/23/25 01:30 Unasyn 3 Gm/Ns 100 Ml IVPB Infused Q6H JADYN Infusion Insulin Aspart 3 - 6 units 01/18/25 08:00 01/22/25 16:50 Insulin Aspart (*Bkc) 100 Units/Ml SUB-Q Not Given TIDWM [facility] Protocol Insulin Glargine 10 units 01/23/25 09:00 Insulin Glargine (*Bkc) 100 Units/Ml SUB-Q DAILY JADYN Metoprolol Tartrate 12.5 mg 01/22/25 13:00 01/23/25 06:14 Metoprolol Tartrate 12.5 Mg Tablet PO 12.5 mg Q6H JADYN Administration Perflutren Lipid Microsphere 0 ml 01/22/25 07:21 Perflutren Lipid Microspheres 1.5 Ml Vial Diluted To 10 Ml Total Volume IV PUSH 01/25/25 07:21 ONCE PRN adequate visualization Protocol Polyethylene Glycol 17 gm 01/21/25 09:00 01/22/25 15:00 Polyethylene Glycol 3350 17 Gm Powd.Pack PO Not Given BID [facility] Senna 8.6 mg 01/21/25 09:00 01/22/25 16:52 Sennosides 8.6 Mg Tablet PO Not Given BID [facility] Radiology Results: ITS Impressions Head CT 01/17/25 18:05 Impression: No acute intracranial hemorrhage or suspicious mass effect. Chest/Abdomen/Pelvis CT 01/17/25 21:12 IMPRESSION: No hollow or solid visceral organ injury. Acute nondisplaced fractures of the lateral margin of the left fourth fifth and sixth ribs. 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 Chest X-Ray 01/20/25 20:46 IMPRESSION: Mild pulmonary vascular congestion, without focal infiltrate or effusion. Hand X-Ray 01/22/25 12:47 Impression: No acute abnormality. 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 Mild degenerative changes of the first through third MCP joints. Venous Doppler Study 01/22/25 18:40 IMPRESSION: Patent bilateral lower extremity veins. No evidence of deep venous thrombosis. Labs Labs: Laboratory Results - last 24 hr 01/22/25 01/22/25 01/22/25 09:33 12:27 15:22 WBC RBC Hgb Hct MCV MCH MCHC RDW Plt Count MPV Immature Gran % (Auto) Neut % (Auto) Lymph % (Auto) Potter % (Auto) Eos % (Auto) Baso % (Auto) Lymph # (Auto) Potter # (Auto) Eos # (Auto) Baso # (Auto) Abs Immat Gran (auto) Absolute Neuts (auto) Absolute Nucleated RBC Band Neutrophils % Nucleated RBC % Platelet Estimate % Immature Plt Fraction Anisocytosis Frederick Cells Schistocytes Sodium Potassium Chloride Carbon Dioxide Anion Gap BUN Creatinine Estim Creat Clear Calc Estimated GFR Glucose POC Capillary Glucose 134 H 184 H 188 H Calcium 01/22/25 01/23/25 20:17 03:37 WBC 17.6 H RBC 3.83 L Hgb 12.2 L Hct 38.4 L MCV 100.3 H MCH 31.9 MCHC 31.8 L RDW 13.0 Plt Count 65 L MPV 12.8 H Immature Gran % (Auto) 0.5 Neut % (Auto) 84.8 H Lymph % (Auto) 9.0 L Potter % (Auto) 5.0 Eos % (Auto) 0.5 Baso % (Auto) 0.2 Lymph # (Auto) 1.58 Potter # (Auto) 0.9 H Eos # (Auto) 0.1 Baso # (Auto) 0.0 Abs Immat Gran (auto) 0.09 H Absolute Neuts (auto) 15.0 H Absolute Nucleated RBC 0.000 Band Neutrophils % Not Reportable Nucleated RBC % 0.0 Platelet Estimate Decreased % Immature Plt Fraction 9.0 Anisocytosis 1+ Price Cells 1+ Schistocytes None seen Sodium 135 L Potassium 4.2 Chloride 101 Carbon Dioxide 31 H Anion Gap 3 L BUN 27 H Creatinine 0.78 Estim Creat Clear Calc 57 Estimated GFR > 60 Glucose 191 H POC Capillary Glucose 298 H Calcium 8.1 L
--- NOTE | 2025-01-23 08:48 | PCNFU ---
Nutrition Follow-Up Complete: Severe protein calorie malnutrition related to chronic loss of appetite, dementia as evidenced by intakes <75% needs >1 month; weight loss 8%/3 months; severe muscle wasting and fat loss Intakes >75% meals and supplements - Slow progress to goal with sporadic intakes. Continue with same goal Goal: Pt current nutrition is Diabetic consistent carb diet. Glucerna BID (220 kcal, 10 g protein) Nutrition recommendation: No new recommendations. Continue same nutrition care plan and orders. Agree with orders Last recorded weight is 61.9 kg. Bowel Motility:+2 BM 01/22/25 Labs Reviewed: Hgb 12.2, Hct 38.4, Alb 3.0, Na 135, BUN 27, Glu 191 Meds Noted: Miralax, senna, folic acid, Novolog, Lantus Skin:WNL Additional Notes: Intakes 10-75%. Some supplement intakes recorded. Continue to monitor. AGree with orders Monitor intakes, weights, labs, supplement tolerance, plan of care Follow up in 5 days
[2025-01-23] MEDS: CLINDAMYCIN HCL 150 MG CAP 450 MG PO ×3 (09:56→21:05)
[2025-01-23] MEDS: cefTRIAXone 2 GM/NS 100 ML 2 GM/100 ML BAG IVPB (09:56)
--- NOTE | 2025-01-23 12:06 | P.CONCA_ITS ---
Assessment and Plan Assessment and plan (1) CHF exacerbation: Code(s): I50.9 - Heart failure, unspecified Status: Acute (2) Valvular heart disease: Code(s): I38 - Endocarditis, valve unspecified Status: Acute (3) H/O aortic valve replacement: Code(s): Z95.2 - Presence of prosthetic heart valve Status: Acute (4) A-fib: Qualifiers: Atrial fibrillation type: unspecified Qualified Code(s): I48.91 - Unspecified atrial fibrillation Code(s): I48.91 - Unspecified atrial fibrillation Status: Acute Plan 1, Permanent Afib 2. S/p bioprosthetic aortic valve 3. HTN 4. Dementia - Continue metoprolol w ill transition to 50 mg PO BID - Continue apixaban - Echo to assess LV function, aortic and mitral valves - Low dose Lasix from tomorrow History of Present Illness History of Present Illness Consult date/time: 01/23/25 12:06 Reason For Visit: Altered mental status, leukocytosis, rib frac Narrative: 79-year-old male with a past medical history of dementia, insulin-dependent diabetes mellitus, essential hypertension, hyperlipidemia, CVA, paroxysmal atrial fibrillation on Eliquis, aortic valve replacement and chronic hearing loss who is admitted with UTi, sepsis, metabolic delirium. Cardiology consulted for atrial fibrillation he had an episode of RVR at presentation, currently rate controlled Currently on Metoprolol and Apixaban Received one dose of diuretic TTE (2019) EF 65%, mod MR, mild /AI in bioprosthetic aortic valve Review of Systems 2 Review of Systems: 12 systems were reviewed with pertinent positives and negatives per HPI. Except as documented in the HPI, all other systems were reviewed and are negative. Review of systems provided by the patient is not all that reliable given patient's history of dementia. All systems reviewed & are unremarkable except as noted in HPI and below Constitutional: Constitutional: Reports no additional constitutional complaints Eyes: Eyes: Reports no additional eye complaints ENT: Reports system reviewed and no additional complaints, except as documented Cardiovascular: Cardiovascular: Reports no additional cardiovascular complaints Respiratory: Respiratory: Reports no additional respiratory complaints Gastrointestinal: Gastrointestinal: Reports no additional gastrointestinal complaints Musculoskeletal: Musculoskeletal: Reports no additional musculoskeletal complaints Neurologic: Reports system reviewed and no additional complaints, except as documented [facility] Past Medical History Medical History (Updated 01/22/25 @ 12:16 by Karine Cruz APRN) CVA (cerebral vascular accident) (~03/2024) 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 Right kidney stone Hx of colonic polyps Tobacco abuse Elevated homocysteine COPD (chronic obstructive pulmonary disease) Vitamin D deficiency Hearing loss ASHD (arteriosclerotic heart disease) A-fib Hyperlipidemia Benign essential hypertension Diabetes mellitus type 2, insulin dependent Surgical History Surgical History H/O aortic valve replacement Family History Family History Father Family history of malignant neoplasm Other Family history of cardiovascular disease Family history of pancreatic cancer Social History Social History (Updated 01/18/25 @ 05:19 by Zoe Gregg DO) Social History: Code status: Full code (per EMR) Surrogate decision maker: Russell (son) Smoking packs per day: 1 Smoking cigarettes per day: 20.0 Years smoked: 60 Smoking pack-years: 60.00 Smoking status: Current every day smoker Tobacco type: cigarettes Second hand tobacco smoke exposure: Yes Alcohol intake: never Substance use: never Substance use type: does not use Do You Feel Safe in your Home?: Yes Lack of Transportation: No Lack of Food: Never True Current Housing: I Have Housing Concerned About Future Housing: No Difficulty Paying Gas/Electric Bills: No Difficulty Paying for Meds: No Currently Unemployed: No Education: High School Diploma/GED Difficulty w/ Childcare or Family Care: No Living arrangements: with family Additional living arrangements comments: The patient's grandson lives with him. Patient raised 2 sons. 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 Gender identity (if verbalized by the patient): Male Spiritual care concerns: No Meds Home Medications and Allergies Home Medications ?Medication ?Instructions ?Recorded ?Confirmed ?Type cinnamon bark 500 mg capsule 500 mg PO HS 09/07/19 01/18/25 History (Cinnamon) furosemide 20 mg tablet 10 mg (1/2 x 20 mg) PO DAILY #30 04/10/24 01/18/25 Rx tabs omega 8-lyr-bpi-fish oil 300 1 cap PO BID #60 caps 04/10/24 01/18/25 Rx mg-1,000 mg capsule Adult Incontinence Pads #60 ea 04/18/24 01/22/25 Rx blood-glucose meter (Blood Glucose #1 ea 04/18/24 01/22/25 Rx Monitoring kit) mecobalamin (vitamin B12) 1,000 1,000 mcg PO DAILY 04/22/24 01/18/25 History mcg chewable tablet metformin 1,000 mg tablet See Rx Instructions .Route 08/04/24 01/18/25 Rx .COMPLEX #100 tabs lisinopril 20 mg tablet See Rx Instructions .Route 08/08/24 01/18/25 Rx .COMPLEX #100 tabs potassium chloride 10 mEq See Rx Instructions .Route 08/08/24 01/18/25 Rx capsule,extended release .COMPLEX #100 caps apixaban 5 mg tablet (Eliquis) See Rx Instructions .Route 10/17/24 01/18/25 Rx .COMPLEX #120 tabs pen needle, diabetic 31 gauge x #200 ea 11/07/24 01/22/25 Rx 5/16 blood sugar diagnostic (OneTouch #200 strips 11/21/24 01/22/25 Rx Ultra Test strips) folic acid 1 mg tablet 1 mg PO HS #90 tabs 11/24/24 01/18/25 Rx donepezil 10 mg tablet 10 mg PO QHS #90 tabs 11/28/24 01/18/25 Rx insulin glargine 100 unit/mL (3 15 unit (0.15 mL) subcut BID #100 11/28/24 01/18/25 Rx mL) subcutaneous pen (Lantus mL Solostar U-100 Insulin) memantine 14 mg capsule 14 mg PO DAILY #90 ea 11/28/24 01/18/25 Rx sprinkle,extended release 24hr dapagliflozin propanediol 5 mg See Rx Instructions .Route 12/16/24 01/18/25 Rx tablet (Farxiga) .COMPLEX #100 tabs niacin 500 mg tablet,extended See Rx Instructions .Route 12/18/24 01/18/25 Rx release 24 hr .COMPLEX #100 tabs metoprolol tartrate 25 mg tablet See Rx Instructions .Route 12/31/24 01/18/25 Rx .COMPLEX #200 tabs atorvastatin 20 mg tablet 20 mg PO HS #90 tabs 01/10/25 01/18/25 Rx Allergies Allergy/AdvReac Type Severity Reaction Status Date / Time No Known Allergies Allergy Verified 10/13/24 14:03 Vital Signs Vital Signs - 24 hr 01/22/25 13:07 01/22/25 13:41 01/22/25 16:00 Temperature Pulse Rate 69 79 Respiratory Rate 18 Blood Pressure 101/47 L 99/56 L Pulse Oximetry 98 Oxygen Delivery Fraction of Inspired Oxygen 01/22/25 16:00 01/22/25 18:00 01/22/25 18:00 Temperature 36.9 C Pulse Rate 66 82 82 Respiratory Rate 24 H Blood Pressure 111/53 L Pulse Oximetry 100 Oxygen Delivery Fraction of Inspired Oxygen 01/22/25 20:00 01/22/25 20:00 01/22/25 20:00 Temperature 36.5 C Pulse Rate 64 64 Respiratory Rate 18 Blood Pressure 119/50 L Pulse Oximetry 98 Oxygen Delivery Room Air Fraction of Inspired Oxygen 01/22/25 21:00 01/22/25 22:00 01/22/25 23:22 Temperature Pulse Rate 64 Respiratory Rate Blood Pressure Pulse Oximetry 95 Oxygen Delivery Room Air Room Air Fraction of Inspired Oxygen 21 01/22/25 23:53 01/23/25 00:00 01/23/25 01:01 Temperature 36.8 C Pulse Rate 61 64 70 Respiratory Rate 18 Blood Pressure 103/46 L Pulse Oximetry 95 Oxygen Delivery Fraction of Inspired Oxygen 01/23/25 02:00 01/23/25 04:00 01/23/25 04:00 Temperature Pulse Rate 68 68 Respiratory Rate Blood Pressure Pulse Oximetry Oxygen Delivery Room Air Fraction of Inspired Oxygen 01/23/25 04:00 01/23/25 05:59 01/23/25 06:14 Temperature 36.6 C Pulse Rate 66 71 79 Respiratory Rate 18 Blood Pressure 101/51 L Pulse Oximetry 100 Oxygen Delivery Fraction of Inspired Oxygen 01/23/25 08:00 01/23/25 08:00 01/23/25 08:00 Temperature 36.4 C Pulse Rate 67 82 Respiratory Rate 18 Blood Pressure 112/52 L Pulse Oximetry 98 98 Oxygen Delivery Room Air Fraction of Inspired Oxygen 01/23/25 10:00 Temperature Pulse Rate 76 Respiratory Rate Blood Pressure Pulse Oximetry Oxygen Delivery Fraction of Inspired Oxygen Exam 2 Narrative: General - Awake and alert. No acute distress Eyes - PERRLA, EOM intact ENT - No thrush, No erythema Neck - No noticeable or palpable swelling Lymph Nodes - No lymphadenopathy Cardiovascular - RRR no m/r/g, no JVD Lungs: Coarse upper airway, No wheezing, use of accessory muscles, no crackles Skin - Skin warm and dry, no wounds or rashes Abdomen - Normal bowel sounds, abdomen soft and nontender Extremities - No edema, cyanosis or clubbing Musculoskeletal - 5/5 strength, normal range of motion, no swollen or erythematous joints. Neurological ? Alert and oriented x 2, CN 2-12 grossly intact. Psych: Normal mood and affect Const: Other: No acute distress, elderly, thin body habitus HENMT: Other: Mucous membranes are dry, no oral pharyngeal erythema, head is normocephalic atraumatic Eyes: Other: No conjunctival pallor, no scleral icterus, pupils are equal and reactive Neck: Other: No JVD, no lymphadenopathy Resp: Other: Clear to auscultation bilaterally, no increased work of breathing Cardio: Other: Regular rate, regular rhythm, no murmurs GI: Other: Soft, nontender, nondistended, positive bowel sounds Skin: Other: No jaundice, no pallor Neuro: Other: Alert oriented to person, month, year, and the fact that he is in the hospital. He does not know what hospital he is in. He has no localizing neurologic deficits noted during the course of conversation, he is mildly hard of hearing. 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 Psych: Other: Pleasantly confused, cooperative, poor judgment and insight Results Labs and Meds 01/24/25 03:44 01/24/25 03:44 Lab results: CBC 01/23/25 Range/Units 03:37 WBC 17.6 H (4.5-10.0) K/mm3 RBC 3.83 L (4.6-6.20) M/mm3 Hgb 12.2 L (14.0-18.0) g/dL Hct 38.4 L (42.0-52.0) % Plt Count 65 L (150-375) k/mm3 Lymph # (Auto) 1.58 (0.9-3.2) K/mm3 [place] # (Auto) 0.9 H (0.1-0.6) K/mm3 Eos # (Auto) 0.1 (0-0.3) K/mm3 Baso # (Auto) 0.0 (0.0-0.1) K/mm3 Comprehensive Metabolic Panel 01/23/25 Range/Units 03:37 Sodium 135 L (137-145) mmol/L Potassium 4.2 (3.4-5.0) mmol/L Chloride 101 (98-107) mmol/L Carbon Dioxide 31 H (22-30) mmol/L BUN 27 H (9-20) mg/dL Creatinine 0.78 (0.7-1.3) mg/dL Glucose 191 H (65-110) mg/dL Calcium 8.1 L (8.4-10.2) mg/dL Intake and Output 01/22/25 01/23/25 01/23/25 23:59 07:59 15:59 Intake Total 640 350 320 Output Total 450 700 Balance 190 -350 320 Intake: IV 100 100 Ampicillin Sulb 3 gm/Ns 100 ml 100 100 3 gm In 100 ml @ 200 mls/hr IVPB Q6H [facility] Rx#:[id number] Oral 540 250 320 Output: Urine 450 700 Patient Weight 01/23/25 23:59 Weight 61.9 kg
[2025-01-23] MEDS: INSULIN ASPART (*BKC) 100 UNITS/ML SUB-Q ×2 (12:11→16:21)
[2025-01-23 16:39] LABS: Lymphocytes, Absolute 308 cells/uL (850-3900)
[2025-01-23] MEDS: DONEPEZIL HCL 10 MG TABLET PO (21:04)
[2025-01-23] MEDS: METOPROLOL TARTRATE 25 MG TABLET PO (21:05)
[2025-01-23] MEDS: FOLIC ACID 1 MG TABLET PO (21:05)
[2025-01-23 22:14] LABS: G-6-PD, RBC. 20.3 U/g Hgb (7.0-20.5)
[2025-01-24] VITALS (7 sets, daily range): BP systolic 120–159; BP diastolic 54–88; PULSE 63–92; RESP 16–24; TEMP 36–37; O2SAT 97–100
[2025-01-24 04:57] LABS: Hematocrit 39.1 % (42.0-52.0); Hemoglobin 12.4 g/dL (14.0-18.0); Immature Granulocyte Percent A 0.7 % (0-0.5); Immature Platelet Fraction Pct 9.2 % (0.9-11.2); Lymphocytes Absolute Auto 1.62 K/mm3 (0.9-3.2); Mean Corpuscular HGB Conc 31.7 g/dl (32-36); Mean Corpuscular Hemoglobin 32.0 pg (26-34); Mean Corpuscular Volume 100.8 fl (80-100); Nucleated Red Blood Cells Absolute Auto 0.000 K/mm3 (0.0-0.012); Nucleated Red Blood Cells Perc 0.0 % (0.0-0.2); Platelet Count Result 80 k/mm3 (150-375); Red Blood Count 3.88 M/mm3 (4.6-6.20); White Blood Count 15.2 K/mm3 (4.5-10.0)
[2025-01-24 05:15] LABS: Anion Gap 3 mmol/L (4-12); Blood Urea Nitrogen 24 mg/dL (9-20); Calcium 8.1 mg/dL (8.4-10.2); Carbon Dioxide 31 mmol/L (22-30); Chloride 102 mmol/L (98-107); Estimated CRCL calculation 61 ml/min; Estimated Glomerular Filt Rate > 60; Glucose 117 mg/dL (65-110); Potassium 4.2 mmol/L (3.4-5.0); Sodium 136 mmol/L (137-145)
[2025-01-24] MEDS: CLINDAMYCIN HCL 150 MG CAP 450 MG PO ×3 (05:34→21:30)
[2025-01-24] MEDS: cefTRIAXone 2 GM/NS 100 ML 2 GM/100 ML BAG IVPB (09:42)
[2025-01-24] MEDS: CYANOCOBALAMIN 1,000 MCG TABLET 1000 MCG PO (09:45)
[2025-01-24] MEDS: APIXABAN 5 MG TABLET PO ×2 (09:45→21:29)
[2025-01-24] MEDS: METOPROLOL TARTRATE 25 MG TABLET PO ×2 (09:45→21:29)
[2025-01-24] MEDS: INSULIN GLARGINE (*BKC) 100 UNITS/ML 10 UNITS SUB-Q (09:46)
--- NOTE | 2025-01-24 10:10 | PM.PNCARD ---
Progress Note: A&P Assessment and Plan (1) CHF exacerbation: Code(s): I50.9 - Heart failure, unspecified Status: Acute (2) Valvular heart disease: Code(s): I38 - Endocarditis, valve unspecified Status: Acute (3) H/O aortic valve replacement: Code(s): Z95.2 - Presence of prosthetic heart valve Status: Acute (4) A-fib: Qualifiers: Atrial fibrillation type: unspecified Qualified Code(s): I48.91 - Unspecified atrial fibrillation Code(s): I48.91 - Unspecified atrial fibrillation Status: Acute Plan 1, Permanent Afib 2. S/p bioprosthetic aortic valve 3. HTN 4. Dementia - Continue metoprolol 50mg p.o. b.i.d. - Continue apixaban - Echo showed normal LVEF, severe with SYLVIE 0.9cm2, moderate -severe MR, moderate TR, and severe pHTN - Lasix p.r.n. -Outpatient referral to valve clinic for his valvular heart disease Subjective Date/time seen: 01/24/25 10:10 Interval history: Cardiology follow up for atrial fibrillation. Date of service 01/24/2025: Feeling better today. Denies palpitations, chest pain. Has shortness of breath with exertion. Exam Const: General: comfortable Other: No acute distress, elderly, thin body habitus HENMT: Head: normal to inspection and normocephalic Eyes: General: appearance normal, both eyes and all related structures Pupils: Equal, round and reactive pupils present Neck: Other: No JVD, no lymphadenopathy Resp: Effort & Inspection: normal respiratory effort Auscultation: clear to auscultation bilaterally Cardio: Other: Regular rate, regular rhythm, no murmurs GI: Inspection: normal to inspection GI Palp: Yes Soft to palpation Skin: Other: No jaundice, no pallor Neuro: General: oriented to person and oriented to time Extrem: Other: No clubbing, cyanosis or edema, 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 Psych: Other: Pleasantly confused, cooperative, poor judgment and insight Objective Data Vital Signs Vital Signs: Vital Signs - 24 hr 01/23/25 16:00 01/23/25 19:56 01/23/25 21:05 Temperature 36.8 C Pulse Rate 90 99 Respiratory Rate 18 Blood Pressure 121/63 Pulse Oximetry 98 98 Oxygen Delivery Room Air 06/30/25 23:53 01/24/25 08:00 01/24/25 09:45 Temperature 36.7 C 36.6 C Pulse Rate 65 66 92 Respiratory Rate 20 20 Blood Pressure 141/67 H 123/64 Pulse Oximetry 96 97 Oxygen Delivery Intake/Output Intake/Output: Intake & Output 01/21/25 01/22/25 01/23/25 01/24/25 23:59 23:59 23:59 23:59 Intake Total 920 1380 1530 340 Output Total 300 1250 1300 650 Balance 620 130 230 -310 Meds/Results Medications: Active Medications Generic Name Dose Route Start Last Admin Trade Name Freq PRN Reason Stop Dose Admin Acetaminophen 1,000 mg 01/20/25 11:45 01/22/25 05:25 Acetaminophen 500 Mg Tablet PO 1,000 mg Q6H PRN Administration Mild Pain (1-3) or Fever Apixaban 5 mg 01/18/25 09:00 01/24/25 09:45 Apixaban 5 Mg Tablet PO 5 mg Q12HR JADYN Administration Clindamycin HCl 450 mg 01/23/25 09:00 01/24/25 05:34 Clindamycin Hcl 150 Mg Cap PO 450 mg Q8HR JADYN Administration Cyanocobalamin 1,000 mcg 01/18/25 09:00 01/24/25 09:45 Cyanocobalamin 1,000 Mcg Tablet PO 1,000 mcg QAM JADYN Administration Dextrose 12.5 gm 01/18/25 04:46 Dextrose 50% 25 Gm/50 Ml Syringe IV PUSH PRN PRN Hypoglycemia Protocol Donepezil HCl 10 mg 01/18/25 21:00 01/23/25 21:04 Donepezil Hcl 10 Mg Tablet PO 10 mg QHS JADYN Administration Folic Acid 1 mg 01/18/25 21:00 01/23/25 21:05 Folic Acid 1 Mg Tablet PO 1 mg HS JADYN Administration Glucagon 1 mg 01/18/25 04:46 Glucagon For Inj 1 Mg Vial IM PRN PRN Hypoglycemia Protocol Glucose 15 gm 01/18/25 04:46 Glucose Oral Gel 15 Gm Of Glucse In 37.5 Gm Tube PO PRN PRN Hypoglycemia Protocol Dextrose 1,000 mls @ 100 mls/hr 01/18/25 04:46 Dextrose 5% 1,000 Ml IVPB PRN PRN Hypoglycemia Protocol Ceftriaxone Sodium 2 gm in 100 mls @ 200 mls/hr 01/23/25 09:00 01/24/25 09:42 Rocephin 2 Gm/Ns 100 Ml IVPB 100 mls/hr Q24H JADYN Administration Insulin Aspart 3 - 6 units 01/18/25 08:00 01/24/25 09:42 Insulin Aspart (*Bkc) 100 Units/Ml SUB-Q Not Given TIDWM JADYN Protocol Insulin Glargine 10 units 01/23/25 09:00 01/24/25 09:46 Insulin Glargine (*Bkc) 100 Units/Ml SUB-Q 10 units DAILY JADYN Administration Metoprolol Tartrate 25 mg 01/23/25 21:00 01/24/25 09:45 Metoprolol Tartrate 25 Mg Tablet PO 25 mg Q12HR JADYN Administration Perflutren Lipid Microsphere 0 ml 01/22/25 07:21 Perflutren Lipid Microspheres 1.5 Ml Vial Diluted To 10 Ml Total Volume IV PUSH 01/25/25 07:21 ONCE PRN adequate visualization Protocol Polyethylene Glycol 17 gm 01/21/25 09:00 01/24/25 09:47 Polyethylene Glycol 3350 17 Gm Powd.Pack PO Not Given BID JADYN Senna 8.6 mg 01/21/25 09:00 01/24/25 09:46 Sennosides 8.6 Mg Tablet PO Not Given BID JADYN Radiology Results: ITS Impressions Head CT 01/17/25 18:05 Impression: No acute intracranial hemorrhage or suspicious mass effect. Chest/Abdomen/Pelvis CT 01/17/25 21:12 IMPRESSION: No hollow or solid visceral organ injury. Acute nondisplaced fractures of the lateral margin of the left fourth fifth and sixth ribs. 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 Chest X-Ray 01/20/25 20:46 IMPRESSION: Mild pulmonary vascular congestion, without focal infiltrate or effusion. Hand X-Ray 01/22/25 12:47 Impression: No acute abnormality. 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 Mild degenerative changes of the first through third MCP joints. Venous Doppler Study 01/22/25 18:40 IMPRESSION: Patent bilateral lower extremity veins. No evidence of deep venous thrombosis. Labs Labs: Laboratory Results - last 24 hr 01/20/25 01/21/25 01/23/25 09:19 05:30 11:16 WBC RBC Hgb Hct MCV MCH MCHC RDW Plt Count MPV Immature Gran % (Auto) Neut % (Auto) Lymph % (Auto) [place] % (Auto) Eos % (Auto) Baso % (Auto) Lymph # (Auto) [place] # (Auto) Eos # (Auto) Baso # (Auto) Abs Immat Gran (auto) Absolute Neuts (auto) Absolute Nucleated RBC Nucleated RBC % % Immature Plt Fraction G6PD RBC Count 20.3 Sodium Potassium Chloride Carbon Dioxide Anion Gap BUN Creatinine Estim Creat Clear Calc Estimated GFR Glucose POC Capillary Glucose 270 H Calcium Absolute Lymphocytes 308 L % CD4 Cells 43 Absolute CD4 Count 132 L 01/23/25 01/23/25 01/24/25 16:10 19:50 03:44 WBC 15.2 H RBC 3.88 L Hgb 12.4 L Hct 39.1 L MCV 100.8 H MCH 32.0 MCHC 31.7 L RDW 13.0 Plt Count 80 L MPV 12.1 H Immature Gran % (Auto) 0.7 H Neut % (Auto) 81.8 H Lymph % (Auto) 10.7 L [place] % (Auto) 5.3 Eos % (Auto) 1.2 Baso % (Auto) 0.3 Lymph # (Auto) 1.62 [place] # (Auto) 0.8 H Eos # (Auto) 0.2 Baso # (Auto) 0.0 Abs Immat Gran (auto) 0.11 H Absolute Neuts (auto) 12.4 H Absolute Nucleated RBC 0.000 Nucleated RBC % 0.0 % Immature Plt Fraction 9.2 G6PD RBC Count Sodium 136 L Potassium 4.2 Chloride 102 Carbon Dioxide 31 H Anion Gap 3 L BUN 24 H Creatinine 0.74 Estim Creat Clear Calc 61 Estimated GFR > 60 Glucose 117 H POC Capillary Glucose 319 H 175 H Calcium 8.1 L Absolute Lymphocytes % CD4 Cells Absolute CD4 Count 01/24/25 07:50 WBC RBC Hgb Hct MCV MCH MCHC RDW Plt Count MPV Immature Gran % (Auto) Neut % (Auto) Lymph % (Auto) [place] % (Auto) Eos % (Auto) Baso % (Auto) Lymph # (Auto) [place] # (Auto) Eos # (Auto) Baso # (Auto) Abs Immat Gran (auto) Absolute Neuts (auto) Absolute Nucleated RBC Nucleated RBC % % Immature Plt Fraction G6PD RBC Count Sodium Potassium Chloride Carbon Dioxide Anion Gap BUN Creatinine Estim Creat Clear Calc Estimated GFR Glucose POC Capillary Glucose 116 H Calcium Absolute Lymphocytes % CD4 Cells Absolute CD4 Count Quality VTE Prophylaxis VTE prophylaxis: pharmacologic ordered (Continue home Eliquis)
[2025-01-24] MEDS: INSULIN ASPART (*BKC) 100 UNITS/ML SUB-Q ×2 (12:00→17:25)
[2025-01-24 15:59] LABS: NIL 0.01 IU/mL; Quantiferon TB Plus, 1T NEGATIVE (NEGATIVE); TB1-NIL 0.00 IU/mL; TB2-NIL 0.00 IU/mL
--- NOTE | 2025-01-24 16:26 | P.PNIM_ITS ---
Progress Note: A&P Assessment and Plan (1) AIDE (acute kidney injury): Code(s): N17.9 - Acute kidney failure, unspecified Status: Acute (2) Urinary incontinence: Qualifiers: Urinary Incontinence type: unspecified incontinence Qualified Code(s): R32 - Unspecified urinary incontinence Code(s): R32 - Unspecified urinary incontinence Status: Acute (3) Delirium: Code(s): R41.0 - Disorientation, unspecified Status: Acute (4) Type 2 diabetes mellitus with hyperglycemia, with long-term current use of insulin: Code(s): E11.65 - Type 2 diabetes mellitus with hyperglycemia; Z79.4 - shelter (current) use of insulin Status: Acute (5) Left rib fracture: Qualifiers: Encounter type: initial encounter Rib fracture type: multiple ribs Fracture type: closed Qualified Code(s): S22.42XA - Multiple fractures of ribs, left side, initial encounter for closed fracture Code(s): S22.32XA - Fracture of one rib, left side, initial encounter for closed fracture Status: Acute (6) Sepsis: Code(s): A41.9 - Sepsis, unspecified organism Status: Acute (7) Pneumonia: Code(s): J18.9 - Pneumonia, unspecified organism Status: Acute (8) HIV antibody detected: Code(s): Z21 - Asymptomatic human immunodeficiency virus [HIV] infection status Status: Acute (9) CHF exacerbation: Code(s): I50.9 - Heart failure, unspecified Status: Acute (10) Hypotension: Code(s): I95.9 - Hypotension, unspecified Status: Acute (11) Atrial fibrillation with RVR: Code(s): I48.91 - Unspecified atrial fibrillation Status: Acute Plan # Hypotension 01/22/2025: --Likely related to afib with RVR but med options may be limited by hypotension --Changed metoprolol ER 25mg BID to 12.5mg q6 bp better now # Afib with RVR # CHF exacerbation Home dose Metoprolol 25 BID continued but rates up to 150-160's on admission. --D-dimer elevated, BNP elevated --On apixaban 5mg BID, continuing --Cardiology consulted --12 lead EKG # Sepsis # Bacteremia # Cat Bite # Blood cultures growing Pasturella multocida Blood cultures x2 sent 01/19 prior to antibiotics, . Patient confused and did not initially report a cat bite. Has a small scab to his left hand. UA was negative. Lactate & procalcitonin normal. Initially tachycardic with WBC 26, has been improving. Blood pressure as low as 75/45 on 01/17. Vital signs have been stable for days. Has had coarse lungs. COVID/Flu/RSV negative 01/19 Chest x-ray possible early pneumonia. Personally reviewed image and no large consolidation. Also treating for pneumonia as below CT CAP was without contrast. Antibiotics: Started empiric Unasyn, azithro for possible pneumonia with coarse lungs and AMS. Changed to empiric Cefepime and Flagyl pending cultures since blood cultures growing GNB's and to cover possible aspiration. No evidence of aspiration per evaluation by speech. Cultures growing pasturella multocida and patient reported his cat bit his left hand. Unasyn 01/19-01/20, Restart 01/22-present Azithro 500 x3 doses 01/19-01/22 Cefepime 01/20-01/22 Flagyl 01/20-01/22 --Following CBC, white count improving however worsened again 01/23 antibiotics switched to clindamycin and ceftriaxone 01/23/2025 --Blood cultures positive 01/19. Repeat blood cultures 01/21 NGTD. Follow final blood cultures. Also requested susceptibilities since read on blood cultures reported that the isolate was beta lactamase negative but A Negative result does not rule out resistance to beta-lactam antibiotics due to other mechanisms White count has been improving with Unasyn and Cefepime. Called quest to add on susceptibilities --Change Cefepime to Unasyn --Checking TTE, overall low probability of endocarditis with this organism Echo 01/23/2025: EF 55-60% abnormal diastolic function moderate to severe aortic valve stenosis moderate to severe mitral valve regurgitation moderate tricuspid regurgitation severe pulmonary hypertension --No evidence of abscess to left hand, x-ray left hand given report of cat bite and positive blood cultures --LFT's were normal on admission with exception of slightly elevated alk phos, 138. # Acute Respiratory failure # Pneumonia Possible Community-acquired pneumonia, atypical, viral, or less likely aspiration given altered mental status/dementia. New oxygen requirement, 2L. --No evidence of aspiration on swallow evaluation by speech. Also with trace LE edema, R>L 01/17 CT Chest Abdomen Pelvis No hollow or solid visceral organ injury. Acute nondisplaced fractures of the lateral margin of the left fourth fifth and sixth ribs. 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 01/19 Chest x-ray Prominent markings in the lower lobes. Early pneumonia in the left lung base is not excluded. 01/20 Chest x-ray Mild pulmonary vascular congestion, without focal infiltrate or effusion. --venous duplex negative for DVT --Was taking apixaban inconsistently prior to admission due to confusion, but h as been on since admission --No shortness of breath or chest pain. BNP 1720 TTE reviewed see above --Currently off O2. Weaning O2 for sats >92% --CT was without contrast. Consider further imaging if new symptoms Chronic patient is on room air # CHF exacerbation Delete --No shortness of breath or chest pain. --TTE with EF 55-60% abnormal diastolic function moderate to severe aortic valve stenosis moderate to severe mitral valve regurgitation moderate tricuspid regurgitation severe pulmonary hypertension. BNP 1720 # Altered mental status Likely acute change and progression of dementia MONITORING, stable --Family interested in [facility] care placement. Grandson has been staying with him but moving out soon --A&Ox2 --HIV negative (ab positive but no viremia) RPR negative. TSH normal. B12 normal On donepezil # Elevated white count 2/2 bacteremia See above # Diabetes Not taking insulin at home regularly recently Adjust insulin as needed # Constipation MONITORING Scheduled miralax and senna BM documented 01/21 # Failure to thrive Follow weight, intake Eval of dementia/weight loss. Outpatient GI # HIV Negative HIV antibody positive RESOLVED lab confirmed ab positive with a second test. Viral load undetected Discussed with patient and son that he does not have HIV and an antibody test could be positive again in the future Screen for G/C/trich negative CD4 count, G6PD, quantiferon gold TB test were sent in case needed to start treatment # Left rib fractures Not having pain to the left. Reports pain to right ribs but overall mild. Questionable fractures since unable to correlate clinically. 01/17/25 CT Chest/Abd/Pelvis No hollow or solid visceral organ injury. Acute nondisplaced fractures of the lateral margin of the left fourth fifth and sixth ribs. 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 # DVT prophylaxis on apixaban Subjective Date/time seen: 01/24/25 16:26 Interval history: No overnight events. no abdominal pain. some confusion. Review of Systems Review of Systems: All systems reviewed & are unremarkable except as noted in HPI and below Exam Narrative: General - Awake and alert. No acute distress Eyes - PERRLA, EOM intact ENT - No thrush, No erythema Neck - No noticeable or palpable swelling Lymph Nodes - No lymphadenopathy Cardiovascular - RRR no m/r/g, no JVD Lungs: Coarse upper airway, No wheezing, use of accessory muscles, no crackles Skin - Skin warm and dry, no wounds or rashes Abdomen - Normal bowel sounds, abdomen soft and nontender Extremities - No edema, cyanosis or clubbing Musculoskeletal - 5/5 strength, normal range of motion, no swollen or erythematous joints. Neurological ? Alert and oriented x 2, CN 2-12 grossly intact. Psych: Normal mood and affect Objective Data Vital Signs Vital Signs: Vital Signs - 24 hr 01/23/25 19:56 01/23/25 21:05 01/23/25 23:53 Temperature 98.1 F Pulse Rate 99 65 Respiratory Rate 20 Blood Pressure 141/67 H Pulse Oximetry 98 96 Oxygen Delivery Room Air 01/24/25 08:00 01/24/25 08:00 01/24/25 09:45 Temperature 97.9 F Pulse Rate 66 92 Respiratory Rate 20 Blood Pressure 123/64 Pulse Oximetry 97 97 Oxygen Delivery Room Air 01/24/25 12:13 01/24/25 15:58 Temperature 98.5 F 98.0 F Pulse Rate 63 66 Respiratory Rate 20 24 H Blood Pressure 128/54 L 120/57 L Pulse Oximetry 99 99 Oxygen Delivery Intake/Output Intake/Output: Intake & Output 01/21/25 01/22/25 01/23/25 01/24/25 23:59 23:59 23:59 23:59 Intake Total 920 1380 1530 340 Output Total 300 1250 1300 650 Balance 620 130 230 -310 Meds/Results Medications: Active Medications Generic Name Dose Route Start Last Admin Trade Name Freq PRN Reason Stop Dose Admin Acetaminophen 1,000 mg 01/20/25 11:45 01/22/25 05:25 Acetaminophen 500 Mg Tablet PO 1,000 mg Q6H PRN Administration Mild Pain (1-3) or Fever Apixaban 5 mg 01/18/25 09:00 01/24/25 09:45 Apixaban 5 Mg Tablet PO 5 mg Q12HR JADYN Administration Clindamycin HCl 450 mg 01/23/25 09:00 01/24/25 14:36 Clindamycin Hcl 150 Mg Cap PO 450 mg Q8HR JADYN Administration Cyanocobalamin 1,000 mcg 01/18/25 09:00 01/24/25 09:45 Cyanocobalamin 1,000 Mcg Tablet PO 1,000 mcg QAM JADYN Administration Dextrose 12.5 gm 01/18/25 04:46 Dextrose 50% 25 Gm/50 Ml Syringe IV PUSH PRN PRN Hypoglycemia Protocol Donepezil HCl 10 mg 01/18/25 21:00 01/23/25 21:04 Donepezil Hcl 10 Mg Tablet PO 10 mg QHS JADYN Administration Folic Acid 1 mg 01/18/25 21:00 01/23/25 21:05 Folic Acid 1 Mg Tablet PO 1 mg HS JADYN Administration Glucagon 1 mg 01/18/25 04:46 Glucagon For Inj 1 Mg Vial IM PRN PRN Hypoglycemia Protocol Glucose 15 gm 01/18/25 04:46 Glucose Oral Gel 15 Gm Of Glucse In 37.5 Gm Tube PO PRN PRN Hypoglycemia Protocol Dextrose 1,000 mls @ 100 mls/hr 01/18/25 04:46 Dextrose 5% 1,000 Ml IVPB PRN PRN Hypoglycemia Protocol Ceftriaxone Sodium 2 gm in 100 mls @ 200 mls/hr 01/23/25 09:00 01/24/25 09:42 Rocephin 2 Gm/Ns 100 Ml IVPB 100 mls/hr Q24H JADYN Administration Insulin Aspart 3 - 6 units 01/18/25 08:00 01/24/25 12:00 Insulin Aspart (*Bkc) 100 Units/Ml SUB-Q 4 units TIDWM JADYN Administration Protocol Insulin Glargine 10 units 01/23/25 09:00 01/24/25 09:46 Insulin Glargine (*Bkc) 100 Units/Ml SUB-Q 10 units DAILY JADYN Administration Metoprolol Tartrate 25 mg 01/23/25 21:00 01/24/25 09:45 Metoprolol Tartrate 25 Mg Tablet PO 25 mg Q12HR JADYN Administration Perflutren Lipid Microsphere 0 ml 01/22/25 07:21 Perflutren Lipid Microspheres 1.5 Ml Vial Diluted To 10 Ml Total Volume IV PUSH 01/25/25 07:21 ONCE PRN adequate visualization Protocol Polyethylene Glycol 17 gm 01/21/25 09:00 01/24/25 09:47 Polyethylene Glycol 3350 17 Gm Powd.Pack PO Not Given BID JADYN Senna 8.6 mg 01/21/25 09:00 01/24/25 09:46 Sennosides 8.6 Mg Tablet PO Not Given BID JADYN Radiology Results: ITS Impressions Head CT 01/17/25 18:05 Impression: No acute intracranial hemorrhage or suspicious mass effect. Chest/Abdomen/Pelvis CT 01/17/25 21:12 IMPRESSION: No hollow or solid visceral organ injury. Acute nondisplaced fractures of the lateral margin of the left fourth fifth and sixth ribs. 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 Chest X-Ray 01/20/25 20:46 IMPRESSION: Mild pulmonary vascular congestion, without focal infiltrate or effusion. Hand X-Ray 01/22/25 12:47 Impression: No acute abnormality. 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 Mild degenerative changes of the first through third MCP joints. Venous Doppler Study 01/22/25 18:40 IMPRESSION: Patent bilateral lower extremity veins. No evidence of deep venous thrombosis. Labs Labs: Laboratory Results - last 24 hr 01/20/25 01/21/25 01/21/25 09:19 05:30 05:31 WBC RBC Hgb Hct MCV MCH MCHC RDW Plt Count MPV Immature Gran % (Auto) Neut % (Auto) Lymph % (Auto) [place] % (Auto) Eos % (Auto) Baso % (Auto) Lymph # (Auto) [place] # (Auto) Eos # (Auto) Baso # (Auto) Abs Immat Gran (auto) Absolute Neuts (auto) Absolute Nucleated RBC Nucleated RBC % % Immature Plt Fraction G6PD RBC Count 20.3 Sodium Potassium Chloride Carbon Dioxide Anion Gap BUN Creatinine Estim Creat Clear Calc Estimated GFR Glucose POC Capillary Glucose Calcium Absolute Lymphocytes 308 L % CD4 Cells 43 Absolute CD4 Count 132 L TB Test (QFT) Gold Plus Negative TB Test (QFT) Nil 0.01 TB Test Mitogen - Nil 9.27 TB Test Ag - Nil 1 0.00 TB Test Ag - Nil 2 0.00 01/23/25 01/23/25 01/24/25 16:10 19:50 03:44 WBC 15.2 H RBC 3.88 L Hgb 12.4 L Hct 39.1 L MCV 100.8 H MCH 32.0 MCHC 31.7 L RDW 13.0 Plt Count 80 L MPV 12.1 H Immature Gran % (Auto) 0.7 H Neut % (Auto) 81.8 H Lymph % (Auto) 10.7 L [place] % (Auto) 5.3 Eos % (Auto) 1.2 Baso % (Auto) 0.3 Lymph # (Auto) 1.62 [place] # (Auto) 0.8 H Eos # (Auto) 0.2 Baso # (Auto) 0.0 Abs Immat Gran (auto) 0.11 H Absolute Neuts (auto) 12.4 H Absolute Nucleated RBC 0.000 Nucleated RBC % 0.0 % Immature Plt Fraction 9.2 G6PD RBC Count Sodium 136 L Potassium 4.2 Chloride 102 Carbon Dioxide 31 H Anion Gap 3 L BUN 24 H Creatinine 0.74 Estim Creat Clear Calc 61 Estimated GFR > 60 Glucose 117 H POC Capillary Glucose 319 H 175 H Calcium 8.1 L Absolute Lymphocytes % CD4 Cells Absolute CD4 Count TB Test (QFT) Gold Plus TB Test (QFT) Nil TB Test Mitogen - Nil TB Test Ag - Nil 1 TB Test Ag - Nil 2 01/24/25 01/24/25 01/24/25 07:50 11:42 15:34 WBC RBC Hgb Hct MCV MCH MCHC RDW Plt Count MPV Immature Gran % (Auto) Neut % (Auto) Lymph % (Auto) [place] % (Auto) Eos % (Auto) Baso % (Auto) Lymph # (Auto) [place] # (Auto) Eos # (Auto) Baso # (Auto) Abs Immat Gran (auto) Absolute Neuts (auto) Absolute Nucleated RBC Nucleated RBC % % Immature Plt Fraction G6PD RBC Count Sodium Potassium Chloride Carbon Dioxide Anion Gap BUN Creatinine Estim Creat Clear Calc Estimated GFR Glucose POC Capillary Glucose 116 H 262 H 256 H Calcium Absolute Lymphocytes % CD4 Cells Absolute CD4 Count TB Test (QFT) Gold Plus TB Test (QFT) Nil TB Test Mitogen - Nil TB Test Ag - Nil 1 TB Test Ag - Nil 2
--- NOTE | 2025-01-24 18:34 | PC.NURSE ---
Patient received from IMU room 200 at 18:30 via wheelchair. Patient oriented to unit's policies and procedures.
--- NOTE | 2025-01-24 18:34 | PC.NURSE ---
This patient, Moisés Yip, was transferred to [facility] () on 01/24/25 at 1824. Personal belongings sent with patient. Report given to TRINI Montes. Appropriate documentation sent with patient. Son, Russell, at bedside.
[2025-01-24] MEDS: ACETAMINOPHEN 500 MG TABLET 1000 MG PO (18:41)
[2025-01-24] MEDS: DONEPEZIL HCL 10 MG TABLET PO (21:29)
[2025-01-24] MEDS: FOLIC ACID 1 MG TABLET PO (21:30)
[2025-01-25] MEDS: CLINDAMYCIN HCL 150 MG CAP 450 MG PO (05:56)
[2025-01-25 06:43] LABS: Hematocrit 40.8 % (42.0-52.0); Hemoglobin 13.0 g/dL (14.0-18.0); Immature Granulocyte Percent A 0.8 % (0-0.5); Immature Platelet Fraction Pct 6.9 % (0.9-11.2); Lymphocytes Absolute Auto 2.20 K/mm3 (0.9-3.2); Mean Corpuscular HGB Conc 31.9 g/dl (32-36); Mean Corpuscular Hemoglobin 31.9 pg (26-34); Mean Corpuscular Volume 100.2 fl (80-100); Nucleated Red Blood Cells Absolute Auto 0.000 K/mm3 (0.0-0.012); Nucleated Red Blood Cells Perc 0.0 % (0.0-0.2); Platelet Count Result 101 k/mm3 (150-375); Red Blood Count 4.07 M/mm3 (4.6-6.20); White Blood Count 15.3 K/mm3 (4.5-10.0)
[2025-01-25 07:03] LABS: Anion Gap 4 mmol/L (4-12); Blood Urea Nitrogen 20 mg/dL (9-20); Calcium 8.4 mg/dL (8.4-10.2); Carbon Dioxide 31 mmol/L (22-30); Chloride 99 mmol/L (98-107); Estimated CRCL calculation 57 ml/min; Estimated Glomerular Filt Rate > 60; Glucose 93 mg/dL (65-110); Potassium 4.3 mmol/L (3.4-5.0); Sodium 134 mmol/L (137-145)
[2025-01-25 08:34] VITALS: PULSE 90
[2025-01-25] MEDS: METOPROLOL TARTRATE 25 MG TABLET PO ×2 (08:34→21:01)
[2025-01-25] MEDS: cefTRIAXone 2 GM/NS 100 ML 2 GM/100 ML BAG IVPB (08:37)
[2025-01-25] MEDS: SENNOSIDES 8.6 MG TABLET PO (08:37)
[2025-01-25] MEDS: CYANOCOBALAMIN 1,000 MCG TABLET 1000 MCG PO (08:37)
[2025-01-25] MEDS: APIXABAN 5 MG TABLET PO ×2 (08:37→21:01)
[2025-01-25] MEDS: INSULIN GLARGINE (*BKC) 100 UNITS/ML 10 UNITS SUB-Q (08:39)
[2025-01-25 11:12] VITALS: BP 111/55; PULSE 66; RESP 16; TEMP 36.6; O2SAT 100
[2025-01-25 14:40] VITALS: BP 122/83; PULSE 80; RESP 16; TEMP 36.6; O2SAT 96
--- NOTE | 2025-01-25 18:28 | PM.IMPN ---
Progress Note: A&P Assessment and Plan (1) Hypotension: Code(s): I95.9 - Hypotension, unspecified Status: Acute (2) Atrial fibrillation with RVR: Code(s): I48.91 - Unspecified atrial fibrillation Status: Acute (3) CHF exacerbation: Code(s): I50.9 - Heart failure, unspecified Status: Acute (4) Sepsis: Code(s): A41.9 - Sepsis, unspecified organism Status: Acute (5) Bacteremia: Code(s): R78.81 - Bacteremia Status: Acute (6) Cat bite: Code(s): W55.01XA - Bitten by cat, initial encounter Status: Acute (7) Acute respiratory failure: Code(s): J96.00 - Acute respiratory failure, unspecified whether with hypoxia or hypercapnia Status: Acute (8) Pneumonia: Code(s): J18.9 - Pneumonia, unspecified organism Status: Acute (9) Delirium: Code(s): R41.0 - Disorientation, unspecified Status: Acute (10) AIDE (acute kidney injury): Code(s): N17.9 - Acute kidney failure, unspecified Status: Acute (11) Type 2 diabetes mellitus with hyperglycemia, with long-term current use of insulin: Code(s): E11.65 - Type 2 diabetes mellitus with hyperglycemia; 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 Status: Acute (12) Left rib fracture: Qualifiers: Encounter type: initial encounter Rib fracture type: multiple ribs Fracture type: closed Qualified Code(s): S22.42XA - Multiple fractures of ribs, left side, initial encounter for closed fracture Code(s): S22.32XA - Fracture of one rib, left side, initial encounter for closed fracture Status: Acute (13) HIV antibody detected: Code(s): Z21 - Asymptomatic human immunodeficiency virus [HIV] infection status Status: Acute Plan # Hypotension 01/22/2025: Likely related to afib with RVR but med options may be limited by hypotension Changed metoprolol ER 25mg BID to 12.5mg q6 bp better now # Afib with RVR Patient with pAFib although exam more regular. Rate controlled with metoprolol Continue Eliquis # CHF exacerbation Home dose Metoprolol 25 BID continued but rates up to 150-160's on admission. D-dimer elevated at 1.7. No CTA performed but doppler LE negative for DVT. He is on Eliquis BNP elevated to 2050. On apixaban 5mg BID which is continued Echo showing EF 55-60%. mod-severe at 0.9, mod-severe MR and mod TR with severe pulm HTN. Cardiology consulted and appreciate their input # Sepsis - Related to bacteremia - Blood cultures growing Pasturella multocida Blood cultures x2 sent 01/19 prior to antibiotics. Patient confused and did not initially report a cat bite with small scab to left hand. UA was negative. Lactate & procalcitonin normal. Initially tachycardic and WBC 26. Blood pressure was low as 75/45 on 01/17. COVID/Flu/RSV negative 01/19 CXR possible early pneumonia but CT chest showing clear lungs. Started empiric Unasyn, azithro for possible pneumonia with coarse lungs and AMS. Changed to empiric Cefepime and Flagyl. No evidence of aspiration per evaluation by speech. BCx growing pasturella multocida and patient reported his cat bit his left hand. Unasyn 01/19-01/20, Restart 01/22-01/23 Azithro 500 x3 doses 01/19-01/22 Cefepime 01/20-01/22; Flagyl 01/20-01/22 WBC normalized 01/22 but up to 17.6K on 01/23; Abx changed to Rocephin and Clinda started 01/23 WBC better but stable at 15K No fevers and clinically better. Change to Augmentin and monitor. # Cat Bite As above # Acute Respiratory failure Patient with brief O2 requirement for mild CHF CXR at that time did show mild pulm vascular congestion. Weaned to room air. # Pneumonia Possible Community-acquired pneumonia, atypical, viral, or less likely aspiration given altered mental status/dementia. New oxygen requirement, 2L but easily weaned to room air No evidence of aspiration on swallow evaluation by speech. 01/17 CT Chest Abdomen Pelvis No hollow or solid visceral organ injury. Acute nondisplaced fractures of the lateral margin of the left fourth fifth and sixth ribs. 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 01/19 Chest x-ray Prominent markings in the lower lobes. Early pneumonia in the left lung base is not excluded. 01/20 Chest x-ray Mild pulmonary vascular congestion, without focal infiltrate or effusion. Venous duplex negative for DVT Was taking apixaban inconsistently prior to admission due to confusion, but has been on since admission He remains off O2. Follow # Altered mental status/Delirium Likely acute change from sepsis and progression of dementia Family interested in nursing home care placement. Grandson has been staying with him but moving out soon HIV negative (Ab positive but no viremia) RPR negative. TSH normal. B12 normal On donepezil #AIDE Cr elevated on admission felt related to the sepsis Cr better and back to normal. Follow # Diabetes The patient's blood glucose was reviewed on 01/25 Glucose remains well controlled. Continue AccuCheks covering with sliding scale. Hypoglycemia protocol available as needed. Continue to monitor # Left rib fractures 01/17 CT showing acute nondisplaced fractures of the lateral margin of the left fourth fifth and sixth ribs. Not having pain to the left. Reports pain to right ribs but overall mild. Questionable fractures since unable to correlate clinically. Treat symptomatically # HIV antibody positive/Negative viral load RESOLVED lab confirmed HIV Ab positive with a second test. Viral load undetected CD4 count low but related to lymphopenia. Discussed with patient and son that he does not have HIV and an antibody test could be positive again in the future Screen for G/C/trich negative. TB negative. # Constipation MONITORING Scheduled miralax and senna BM documented 01/23 # Failure to thrive Follow weight, intake Eval of dementia/weight loss DVT prophylaxis on apixaban Code status - full Disp - If WBC stable or better, okay for discharge to SNF. Subjective Date/time seen: 01/25/25 18:28 Interval history: 79yo male with dementia, insulin-dependent DM, HTN, HLD, CVA, pAFib on Eliquis, aortic valve replacement and chronic hearing loss who presented to the ER in the presence of family due to not taking his meds. Assuming care. Chart reviewed. Patient is alert but confused. He denies CP or SOB. Voiding well. No urine incontinence. No n/v/d. No complaints. No problems overnight. Review of Systems Review of Systems: ROS unobtainable: Yes unobtainable due to mental status Exam Narrative: AF 97.8 122/83 80 16 96% ra Gen - NARD HEENT - dried eschars right upper lip Chest - CTA bilaterally, nml RR CV - RRR S1/S2 Abd - Soft, NT/ND, Positive BS. bilateral hernias noted Ext - 1+ pedal edema Neuro - Alert and oriented x3 but confused when trying to give hx at times Psych - Nml mood and affect Skin - Warm and dry Objective Data Vital Signs Vital Signs: Vital Signs - 24 hr 01/24/25 18:40 01/24/25 21:29 01/24/25 21:57 Temperature 96.8 F L 98.6 F Pulse Rate 76 88 90 Respiratory Rate 16 18 Blood Pressure 159/68 H 132/88 Pulse Oximetry 100 100 Oxygen Delivery 01/25/25 08:00 01/25/25 08:34 01/25/25 11:12 Temperature 97.8 F Pulse Rate 90 66 Respiratory Rate 16 Blood Pressure 111/55 L Pulse Oximetry 100 Oxygen Delivery Room Air 01/25/25 14:40 Temperature 97.8 F Pulse Rate 80 Respiratory Rate 16 Blood Pressure 122/83 Pulse Oximetry 96 Oxygen Delivery Intake/Output Intake/Output: Intake & Output 01/22/25 01/23/25 01/24/25 01/25/25 23:59 23:59 23:59 23:59 Intake Total 1380 1530 1270 1150 Output Total 1250 1300 1150 800 Balance 130 230 120 350 Meds/Results Medications: Active Medications Generic Name Dose Route Start Last Admin Trade Name Freq PRN Reason Stop Dose Admin Acetaminophen 1,000 mg 01/20/25 11:45 01/24/25 18:41 Acetaminophen 500 Mg Tablet PO 1,000 mg Q6H PRN Administration Mild Pain (1-3) or Fever Amoxicillin/Clavulanate Potassium 1 tablet 01/25/25 22:00 Amoxicillin/Clavulanate K 875-125 Mg Tab PO Q8HR JADYN Apixaban 5 mg 01/18/25 09:00 01/25/25 08:37 Apixaban 5 Mg Tablet PO 5 mg Q12HR JADYN Administration Cyanocobalamin 1,000 mcg 01/18/25 09:00 01/25/25 08:37 Cyanocobalamin 1,000 Mcg Tablet PO 1,000 mcg QAM JADYN Administration Dextrose 12.5 gm 01/18/25 04:46 Dextrose 50% 25 Gm/50 Ml Syringe IV PUSH PRN PRN Hypoglycemia Protocol Donepezil HCl 10 mg 01/18/25 21:00 01/24/25 21:29 Donepezil Hcl 10 Mg Tablet PO 10 mg QHS JADYN Administration Folic Acid 1 mg 01/18/25 21:00 01/24/25 21:30 Folic Acid 1 Mg Tablet PO 1 mg HS JADYN Administration Glucagon 1 mg 01/18/25 04:46 Glucagon For Inj 1 Mg Vial IM PRN PRN Hypoglycemia Protocol Glucose 15 gm 01/18/25 04:46 Glucose Oral Gel 15 Gm Of Glucse In 37.5 Gm Tube PO PRN PRN Hypoglycemia Protocol Dextrose 1,000 mls @ 100 mls/hr 01/18/25 04:46 Dextrose 5% 1,000 Ml IVPB PRN PRN Hypoglycemia Protocol Insulin Aspart 3 - 6 units 01/18/25 08:00 01/25/25 17:36 Insulin Aspart (*Bkc) 100 Units/Ml SUB-Q Not Given TIDWM [facility] Protocol Insulin Glargine 10 units 01/23/25 09:00 01/25/25 08:39 Insulin Glargine (*Bkc) 100 Units/Ml SUB-Q 10 units DAILY JADYN Administration Metoprolol Tartrate 25 mg 01/23/25 21:00 01/25/25 08:34 Metoprolol Tartrate 25 Mg Tablet PO 25 mg Q12HR JADYN Administration Polyethylene Glycol 17 gm 01/21/25 09:00 01/25/25 17:36 Polyethylene Glycol 3350 17 Gm Powd.Pack PO Not Given BID JADYN Senna 8.6 mg 01/21/25 09:00 01/25/25 17:36 Sennosides 8.6 Mg Tablet PO Not Given BID [facility] Radiology Results: ITS Impressions Head CT 01/17/25 18:05 Impression: No acute intracranial hemorrhage or suspicious mass effect. Chest/Abdomen/Pelvis CT 01/17/25 21:12 IMPRESSION: No hollow or solid visceral organ injury. Acute nondisplaced fractures of the lateral margin of the left fourth fifth and sixth ribs. 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 Chest X-Ray 01/20/25 20:46 IMPRESSION: Mild pulmonary vascular congestion, without focal infiltrate or effusion. Hand X-Ray 01/22/25 12:47 Impression: No acute abnormality. 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 Mild degenerative changes of the first through third MCP joints. Venous Doppler Study 01/22/25 18:40 IMPRESSION: Patent bilateral lower extremity veins. No evidence of deep venous thrombosis. Labs Labs: Laboratory Results - last 24 hr 01/21/25 01/24/25 01/25/25 00:29 20:34 00:22 WBC RBC Hgb Hct MCV MCH MCHC RDW Plt Count MPV Immature Gran % (Auto) Neut % (Auto) Lymph % (Auto) [place] % (Auto) Eos % (Auto) Baso % (Auto) Lymph # (Auto) [place] # (Auto) Eos # (Auto) Baso # (Auto) Abs Immat Gran (auto) Absolute Neuts (auto) Absolute Nucleated RBC Nucleated RBC % % Immature Plt Fraction Sodium Potassium Chloride Carbon Dioxide Anion Gap BUN Creatinine Estim Creat Clear Calc Estimated GFR Glucose POC Capillary Glucose 79 80 Calcium Chlamydia Culture TNP 01/25/25 01/25/25 01/25/25 02:46 06:33 07:55 WBC 15.3 H RBC 4.07 L Hgb 13.0 L Hct 40.8 L MCV 100.2 H MCH 31.9 MCHC 31.9 L RDW 13.0 Plt Count 101 L MPV 11.9 H Immature Gran % (Auto) 0.8 H Neut % (Auto) 77.7 H Lymph % (Auto) 14.3 L [place] % (Auto) 5.3 Eos % (Auto) 1.6 Baso % (Auto) 0.3 Lymph # (Auto) 2.20 [place] # (Auto) 0.8 H Eos # (Auto) 0.2 Baso # (Auto) 0.0 Abs Immat Gran (auto) 0.13 H Absolute Neuts (auto) 11.9 H Absolute Nucleated RBC 0.000 Nucleated RBC % 0.0 % Immature Plt Fraction 6.9 Sodium 134 L Potassium 4.3 Chloride 99 Carbon Dioxide 31 H Anion Gap 4 BUN 20 Creatinine 0.80 Estim Creat Clear Calc 57 Estimated GFR > 60 Glucose 93 POC Capillary Glucose 101 135 H Calcium 8.4 Chlamydia Culture 01/25/25 01/25/25 12:06 17:01 WBC RBC Hgb Hct MCV MCH MCHC RDW Plt Count MPV Immature Gran % (Auto) Neut % (Auto) Lymph % (Auto) [place] % (Auto) Eos % (Auto) Baso % (Auto) Lymph # (Auto) [place] # (Auto) Eos # (Auto) Baso # (Auto) Abs Immat Gran (auto) Absolute Neuts (auto) Absolute Nucleated RBC Nucleated RBC % % Immature Plt Fraction Sodium Potassium Chloride Carbon Dioxide Anion Gap BUN Creatinine Estim Creat Clear Calc Estimated GFR Glucose POC Capillary Glucose 123 H 168 H Calcium Chlamydia Culture
[2025-01-25 21:01] VITALS: PULSE 70
[2025-01-25] MEDS: FOLIC ACID 1 MG TABLET PO (21:01)
[2025-01-25] MEDS: DONEPEZIL HCL 10 MG TABLET PO (21:01)
[2025-01-25 21:25] VITALS: O2SAT 98
[2025-01-25 21:50] VITALS: BP 154/70; PULSE 73; RESP 20; TEMP 36.8; O2SAT 98
[2025-01-26 06:53] LABS: Hematocrit 38.9 % (42.0-52.0); Hemoglobin 12.7 g/dL (14.0-18.0); Immature Granulocyte Percent A 0.7 % (0-0.5); Lymphocytes Absolute Auto 1.02 K/mm3 (0.9-3.2); Mean Corpuscular HGB Conc 32.6 g/dl (32-36); Mean Corpuscular Hemoglobin 32.3 pg (26-34); Mean Corpuscular Volume 99.0 fl (80-100); Nucleated Red Blood Cells Absolute Auto 0.000 K/mm3 (0.0-0.012); Nucleated Red Blood Cells Perc 0.0 % (0.0-0.2); Platelet Count Result 144 k/mm3 (150-375); Red Blood Count 3.93 M/mm3 (4.6-6.20); White Blood Count 12.6 K/mm3 (4.5-10.0)
[2025-01-26 07:09] LABS: Anion Gap 3 mmol/L (4-12); Blood Urea Nitrogen 16 mg/dL (9-20); Calcium 8.5 mg/dL (8.4-10.2); Carbon Dioxide 30 mmol/L (22-30); Chloride 101 mmol/L (98-107); Estimated CRCL calculation 68 ml/min; Estimated Glomerular Filt Rate > 60; Glucose 101 mg/dL (65-110); Potassium 4.5 mmol/L (3.4-5.0); Sodium 134 mmol/L (137-145)
[2025-01-26 08:00] VITALS: BP 122/52; PULSE 87; RESP 20; TEMP 36.6; O2SAT 99
[2025-01-26 09:25] VITALS: PULSE 73
[2025-01-26] MEDS: INSULIN GLARGINE (*BKC) 100 UNITS/ML 10 UNITS SUB-Q (09:25)
[2025-01-26] MEDS: CYANOCOBALAMIN 1,000 MCG TABLET 1000 MCG PO (09:25)
[2025-01-26] MEDS: APIXABAN 5 MG TABLET PO (09:25)
[2025-01-26] MEDS: SENNOSIDES 8.6 MG TABLET PO (09:25)
[2025-01-26] MEDS: METOPROLOL TARTRATE 25 MG TABLET PO (09:25)
--- NOTE | 2025-01-26 10:16 | PCNFU ---
Nutrition Follow-Up Complete: Severe protein calorie malnutrition related to chronic loss of appetite, dementia as evidenced by intakes <75% needs >1 month; weight loss 8%/3 months; severe muscle wasting and fat loss Goal:Intakes >75% meals and supplements Pt meeting goal. Pt current nutrition is Diabetic consistent carb, Glucerna shakes BID. Nutrition recommendation: continue with plan of care Last recorded weight is 63.1 kg. Bowel Motility: +BM 01/23 Labs Reviewed: Hgb:12.7, HCt:38.9, NA:134, Cr:0.67 Meds Noted:miralox, senna Skin: WNL Additional Notes: Pt continues on a diabetic diet, intake 50-100% all meals, pt reports good appetite and intake, drinking Glucerna shakes. Agree with orders, Encouraged good intake to continue. Monitor intakes, weights, labs, supplement tolerance, plan of care Follow up in 7 days
[2025-01-26] MEDS: INSULIN ASPART (*BKC) 100 UNITS/ML SUB-Q (11:58)
--- NOTE | 2025-01-26 14:58 | PM.DS ---
DS: Admitting Diagnosis Discharge Date 01/26/25 Admitting Diagnosis Not eating, refusing to take meds DS: Discharge Diagnosis Discharge Diagnosis (1) Hypotension: Code(s): I95.9 - Hypotension, unspecified Status: Acute (2) Atrial fibrillation with RVR: Code(s): I48.91 - Unspecified atrial fibrillation Status: Acute (3) CHF exacerbation: Code(s): I50.9 - Heart failure, unspecified Status: Acute (4) Sepsis: Code(s): A41.9 - Sepsis, unspecified organism Status: Acute (5) Bacteremia: Code(s): R78.81 - Bacteremia Status: Acute (6) Cat bite: Code(s): W55.01XA - Bitten by cat, initial encounter Status: Acute (7) Acute respiratory failure: Code(s): J96.00 - Acute respiratory failure, unspecified whether with hypoxia or hypercapnia Status: Acute (8) Pneumonia: Code(s): J18.9 - Pneumonia, unspecified organism Status: Acute (9) Delirium: Code(s): R41.0 - Disorientation, unspecified Status: Acute (10) AIDE (acute kidney injury): Code(s): N17.9 - Acute kidney failure, unspecified Status: Acute (11) Type 2 diabetes mellitus with hyperglycemia, with long-term current use of insulin: Code(s): E11.65 - Type 2 diabetes mellitus with hyperglycemia; Z79.4 - nursing home (current) use of insulin Status: Acute (12) Left rib fracture: Qualifiers: Encounter type: initial encounter Fracture type: closed Rib fracture type: multiple ribs Qualified Code(s): S22.42XA - Multiple fractures of ribs, left side, initial encounter for closed fracture Code(s): S22.32XA - Fracture of one rib, left side, initial encounter for closed fracture Status: Acute (13) HIV antibody detected: Code(s): Z21 - Asymptomatic human immunodeficiency virus [HIV] infection status Status: Acute DS: Summary Hospital Course Reason for hospitalization: 79yo male with dementia, insulin-dependent DM, HTN, HLD, CVA, pAFib on Eliquis, aortic valve replacement and chronic hearing loss who presented to the ER in the presence of family due to not taking his meds. Please see H&P for details. Hospital Course: # Hypotension 01/22/2025: Likely related to afib with RVR but med options may be limited by hypotension Changed metoprolol ER 25mg BID to 12.5mg q6 bp better now and stable. # Afib with RVR Patient with pAFib. Rate controlled with metoprolol. Continue Eliquis # CHF exacerbation Home dose Metoprolol 25 BID continued but rates up to 150-160's on admission. D-dimer elevated at 1.7. No CTA performed but doppler LE negative for DVT. He is on Eliquis but takes intermittently BNP elevated to 2049. CXR 01/17 was clear. Echo showing EF 55-60%. mod-severe at 0.9, mod-severe MR and mod TR with severe pulm HTN. Cardiology consulted and appreciate their input Pedal edema noted but felt related to his pulmonary HTN. Compression hose ordered. # Valve Disease Plan for patient to follow up with valve clinic as outpatient # Sepsis - Related to bacteremia - Blood cultures growing Pasturella multocida Blood cultures x2 sent 01/19 prior to antibiotics. Patient confused and did not initially report a cat bite with small scab to left hand. UA was negative. Lactate & procalcitonin normal. Initially tachycardic and WBC 26. Blood pressure was low as 75/45 on 01/17. COVID/Flu/RSV negative 01/19 CXR 01/[address] early pneumonia but CT chest showing clear lungs. Started empiric Unasyn, azithro for possible pneumonia with coarse lungs and AMS. Changed to empiric Cefepime and Flagyl. No evidence of aspiration per evaluation by speech. BCx growing pasturella multocida and patient reported his cat bit his left hand. WBC normalized 01/22 but up to 17.6K on 01/23; Abx changed to Rocephin and Clinda started 01/23 WBC better. No fevers and clinically better. Changed to Augmentin to complete a course # Cat Bite As above # Acute Respiratory failure Patient with brief O2 requirement for mild CHF CXR at that time did show mild pulm vascular congestion. Weaned to room air. # Pneumonia Possible Community-acquired pneumonia, atypical, viral, or less likely aspiration given altered mental status/dementia. New oxygen requirement, 2L but easily weaned to room air No evidence of aspiration on swallow evaluation by speech therapy. 01/17 CT Chest Abdomen Pelvis: No hollow or solid visceral organ injury. Acute nondisplaced fractures of the lateral margin of the left fourth fifth and sixth ribs. 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 01/19 Chest x-ray Prominent markings in the lower lobes. Early pneumonia in the left lung base is not excluded. 01/20 Chest x-ray Mild pulmonary vascular congestion, without focal infiltrate or effusion. Venous duplex negative for DVT Was taking apixaban inconsistently prior to admission due to confusion, but has been on since admission He remains off O2. Follow # Altered mental status/Delirium Likely acute change from sepsis and progression of dementia Family interested in half-way care placement. Grandson has been staying with him but moving out soon HIV negative (Ab positive but no viremia) RPR negative. TSH normal. B12 normal On donepezil which was continued #AIDE Cr elevated on admission felt related to the sepsis Cr better and back to normal. # Diabetes A1c 7.4%. The patient's blood glucose was monitored with AccuCheks covering with sliding scale. Hypoglycemia protocol available as needed. # Left rib fractures 01/17 CT showing acute nondisplaced fractures of the lateral margin of the left fourth fifth and sixth ribs. Not having pain to the left. Reports pain to right ribs but overall mild. Questionable fractures since unable to correlate clinically. Treat symptomatically # HIV antibody positive/Negative viral load RESOLVED lab confirmed HIV Ab positive with a second test Viral load undetected CD4 count low but related to lymphopenia. Discussed with patient and son that he does not have HIV and an antibody test could be positive again in the future Screen for G/C/trich negative. TB negative. # Constipation Scheduled miralax and senna BM documented 01/23 # Failure to thrive Followed weight, intake Eval of dementia/weight loss He overall did well and was able to be discharged to SNF on 01/26/25. Status at Discharge Cognitive/behavioral status at discharge: stable Time Spent with Patient Time attestation: Total time spent providing and/or coordinating discharge services: 35 minutes Time spent: Greater than 30 minutes Exam Narrative: AF 98.0 122/52 73 20 99% ra Gen - NARD HEENT - dried eschars right upper lip Chest - clear distant BS CV - RRR S1/S2 Abd - Soft, NT/ND, Positive BS Ext - 1+ pedal edema Neuro - Alert and appropriate Psych - Nml mood and affect Skin - Warm and dry DS: Data Data Completed and Pending Labs on day of discharge: Labs from last 24 hours 01/26/25 01/26/25 01/26/25 11:39 07:37 06:24 WBC 12.6 H RBC 3.93 L Hgb 12.7 L Hct 38.9 L MCV 99.0 MCH 32.3 MCHC 32.6 RDW 12.7 Plt Count 144 L MPV 11.6 H Immature Gran % (Auto) 0.7 H Neut % (Auto) 86.3 H Lymph % (Auto) 8.1 L [place] % (Auto) 4.0 Eos % (Auto) 0.7 Baso % (Auto) 0.2 Lymph # (Auto) 1.02 [place] # (Auto) 0.5 Eos # (Auto) 0.1 Baso # (Auto) 0.0 Abs Immat Gran (auto) 0.09 H Absolute Neuts (auto) 10.9 H Absolute Nucleated RBC 0.000 Nucleated RBC % 0.0 Sodium 134 L Potassium 4.5 Chloride 101 Carbon Dioxide 30 Anion Gap 3 L BUN 16 Creatinine 0.67 L Estim Creat Clear Calc 68 Estimated GFR > 60 Glucose 101 POC Capillary Glucose 231 H 101 Calcium 8.5 Chlamydia Culture 01/25/25 01/25/25 01/21/25 20:34 17:01 00:29 WBC RBC Hgb Hct MCV MCH MCHC RDW Plt Count MPV Immature Gran % (Auto) Neut % (Auto) Lymph % (Auto) [place] % (Auto) Eos % (Auto) Baso % (Auto) Lymph # (Auto) [place] # (Auto) Eos # (Auto) Baso # (Auto) Abs Immat Gran (auto) Absolute Neuts (auto) Absolute Nucleated RBC Nucleated RBC % Sodium Potassium Chloride Carbon Dioxide Anion Gap BUN Creatinine Estim Creat Clear Calc Estimated GFR Glucose POC Capillary Glucose 151 H 168 H Calcium Chlamydia Culture TNP Preliminary micro results at discharge 01/21/25 07:51 Blood Culture - Preliminary Blood 01/21/25 07:51 Blood Culture - Preliminary Blood Discharge Plan Discharge Attending physician on discharge: Dewayne Garcia Consulting providers: Frederick Calabrese Discharging Clinician: Dewayne Garcia Anticipated Discharge Date/Time: 07/03/25 15:41 Patient Disposition: SNF Activity: as tolerated Diet: diabetic Discharge Instructions: Please check glucose before meals and before bed. Record for the doctor's review. Check blood pressure 1 to 2 times a day. Record for the doctor's review. Take precautions to avoid falls. Rise slowly from a lying or sitting position. Pause before standing or walking. Check daily morning weights after voiding. Call the doctor if the patient gains more than 3 lb in 2 days or 5 lb in 1 week. Contact the doctor if the patient has any type of trauma, lightheadedness with standing or other worrisome symptoms. Compression hose on in the morning and off at night. Avoid NSAIDs (ibuprofen, naproxen, Aleve). Tylenol is safe to take. Follow-up with the provider at the facility. Follow-up with [employer] in 2-4 weeks to arrange for a follow-up at the valve clinic. Please call for an appointment. Thank you for using [facility] for your health care needs. Patient Instructions: Apixaban (By mouth), Heart Failure (GEN) Patient Language: Malay Stand Alone Forms: General Discharge Information Follow-up/Referrals: Mishel Leal APN-C [Advanced Practice Nurse] - Call for Appointment Dimitry Kamara MD [Primary Care Provider] - Call for Appointment Discharge Medications: New sennosides [Senokot] 8.6 mg Tablet 8.6 mg PO BID Qty: 30 0RF polyethylene glycol 3350 [Miralax] 17 gram Powder In Packet 17 g PO BID Qty: 30 0RF amoxicillin-pot clavulanate 875-125 mg tablet 1 tablet PO Q8H Qty: 19 0RF Continued (DME) blood-glucose meter [Blood Glucose Monitoring] Kit See Rx Instructions .Route Qty: 1 0RF Rx Instructions: As directed (DME) Adult Incontinence Pads Ht 5'9 wt 145 See Rx Instructions .Route .MEDSUPPLY Qty: 60 6RF Rx Instructions: As directed cinnamon bark [Cinnamon] 500 mg capsule 500 mg PO HS mecobalamin (vitamin B12) 1,000 mcg tablet,chewable 1,000 mcg PO DAILY metformin 1,000 mg tablet See Rx Instructions .ROUTE .COMPLEX Qty: 100 2RF Dose Instruction: TAKE 1 TABLET BY MOUTH DAILY Rx Instructions: TAKE 1 TABLET BY MOUTH DAILY Eliquis 5 mg tablet See Rx Instructions .ROUTE .COMPLEX Qty: 120 5RF Dose Instruction: TAKE 1 TABLET BY MOUTH TWICE DAILY Rx Instructions: TAKE 1 TABLET BY MOUTH TWICE DAILY (DME) pen needle, diabetic 31 gauge x 5/16 needle See Rx Instructions .ROUTE .COMPLEX Qty: 200 0RF Dose Instruction: USE 2 PEN NEEDLES DAILY WITH LEVEMIR PEN Rx Instructions: USE 2 PEN NEEDLES DAILY WITH LEVEMIR PEN (DME) OneTouch Ultra Test Strip See Rx Instructions .ROUTE .COMPLEX Qty: 200 2RF Dose Instruction: USE TO TEST BLOOD SUGARS TWICE DAILY Rx Instructions: USE TO TEST BLOOD SUGARS TWICE DAILY folic acid 1 mg tablet 1 mg PO HS Qty: 90 1RF memantine 14 mg capsule,sprinkle,ER 24hr 14 mg PO DAILY Qty: 90 0RF donepezil 10 mg tablet 10 mg PO QHS Qty: 90 0RF niacin 500 mg tablet extended release 24 hr See Rx Instructions .ROUTE .COMPLEX Qty: 100 2RF Dose Instruction: TAKE 1 TABLET BY MOUTH AT BEDTIME Rx Instructions: TAKE 1 TABLET BY MOUTH AT BEDTIME metoprolol tartrate 25 mg tablet See Rx Instructions .ROUTE .COMPLEX Qty: 200 2RF Dose Instruction: TAKE 1 TABLET BY MOUTH TWICE DAILY Rx Instructions: TAKE 1 TABLET BY MOUTH TWICE DAILY atorvastatin 20 mg tablet 20 mg PO HS Qty: 90 1RF omega 3-dqu-hej-fish oil 300-1,000 mg Capsule 1 cap PO BID Qty: 60 0RF Changed insulin glargine [Lantus Solostar U-100 Insulin] 100 unit/mL (3 mL) insulin pen 10 unit subcut DAILY Qty: 100 0RF furosemide 20 mg Tablet 10 mg PO DAILY PRN (Reason: Edema) Qty: 30 0RF Held lisinopril 20 mg tablet See Rx Instructions .ROUTE .COMPLEX Qty: 100 2RF Hold Instructions: Hold and resume when okay with the provider Dose Instruction: TAKE 1 TABLET BY MOUTH DAILY Rx Instructions: TAKE 1 TABLET BY MOUTH DAILY potassium chloride 10 mEq capsule, extended release See Rx Instructions .ROUTE .COMPLEX Qty: 100 2RF Hold Instructions: hold and resume when okay with provider Dose Instruction: TAKE 1 CAPSULE BY MOUTH DAILY Rx Instructions: TAKE 1 CAPSULE BY MOUTH DAILY dapagliflozin propanediol [Farxiga] 5 mg tablet See Rx Instructions .ROUTE .COMPLEX Qty: 100 1RF Hold Instructions: Hold and resume when okay with the provider Dose Instruction: TAKE 1 TABLET BY MOUTH AT BEDTIME Rx Instructions: TAKE 1 TABLET BY MOUTH AT BEDTIME Date of admission: 01/19/25 15:25 Primary Care Provider: Dimitry Kamara Admitting Provider: Zoe Gregg Attending physician on admission: Karine Cruz Condition: Stable Hospitalist MIPS Heart Failure (Exclusion) Patient has history of Heart Transplant or Left Ventricular Assistive Device?: No IF YES, STOP HERE Heart Failure (Qualifier) Patient has current or prior documentation of LVEF less than or equal to 40%, or mod/servere depressed LVSF?: No IF NO, STOP HERE
[2025-01-30 08:35] LABS: HIV 1 2 Ag Ab 4th Gen w Rflxs Repeatedly Reactive; HIV 1 Ab Chg Test Yes; HIV 1 Antibody Negative; HIV 2 Ab Chg Test Yes; HIV 2 Antibody Negative
[2025-01-30 08:36] LABS: HIV-1 RNA, Qual Chg Test Yes; HIV-1 RNA, Qual TMA Not Detected
[2025-01-30 22:54] LABS: HIV Genotype. NOT DETECTED
== END 2025-01-26 18:53 | DRG 871 ==
LOC: ANHED 19:01 → ANH2MED 23:05 → ANHIMU 01-22 13:34 → ANH3MEDSUR 01-24 18:24
PROVIDERS: Nurse Practitioner Acute Care; Physician Assistant; Admitting Provider Internal Medicine; Emergency Provider Family Medicine; PCP Internal Medicine; Visit Provider Internal Medicine
DX: A41.9 Sepsis, unspecified organism (principal); E43 Unspecified severe protein-calorie malnutrition; J18.9 Pneumonia, unspecified organism; J96.00 Acute respiratory failure, unspecified whether with hypoxia or hypercapnia; N17.9 Acute kidney failure, unspecified; S22.42XA Multiple fractures of ribs, left side, initial encounter for closed fracture; K62.6 Ulcer of anus and rectum; J44.0 Chronic obstructive pulmonary disease with (acute) lower respiratory infection; F03.92 Unspecified dementia, unspecified severity, with psychotic disturbance; F05 Delirium due to known physiological condition; I48.21 Permanent atrial fibrillation; I25.10 Atherosclerotic heart disease of native coronary artery without angina pectoris; I48.0 Paroxysmal atrial fibrillation; E78.5 Hyperlipidemia, unspecified; D72.829 Elevated white blood cell count, unspecified; E11.65 Type 2 diabetes mellitus with hyperglycemia; B96.89 Other specified bacterial agents as the cause of diseases classified elsewhere; R62.7 Adult failure to thrive; R23.4 Changes in skin texture; W55.01XA Bitten by cat, initial encounter; X58.XXXA Exposure to other specified factors, initial encounter; K59.00 Constipation, unspecified; M06.9 Rheumatoid arthritis, unspecified; R32 Unspecified urinary incontinence; Z91.148 Patient's other noncompliance with medication regimen for other reason; F17.210 Nicotine dependence, cigarettes, uncomplicated; Z95.2 Presence of prosthetic heart valve; Z68.21 Body mass index [BMI] 21.0-21.9, adult; Z79.4 Long term (current) use of insulin; Z79.01 Long term (current) use of anticoagulants; Z86.73 Personal history of transient ischemic attack (TIA), and cerebral infarction without residual deficits; Z20.822 Contact with and (suspected) exposure to COVID-19
CPT/HCPCS: 36415; 70450; 71045; 71250; 73120; 74176; 80048; 80053; 80076; 81003; 82306; 82607; 82746; 82948; 82955; 83036; 83605; 83735; 83880; 84100; 84145; 84443; 85025; 85055; 85380; 85610; 86361; 86480; 86593; 86701; 86703; 87040; 87086; 87110; 87140; 87186; 87389; 87536; 87637; 87661; 87900; 87901; 92526; 92610; 93005; 93306; 93970; 96360; 96361; 97110; 97116; 97162; 97166; 97530; 97535; 99285; A9270; G0378; G0432; J0295; J0692; J0696; J1815; J7040; J7120

== ENCOUNTER 2025-02-12 16:33 | Inpatient (IN) | payer MEDICARE, SELFPAY ==
[2025-02-12] VITALS (7 sets, daily range): BP systolic 112–137; BP diastolic 46–69; PULSE 80–108; RESP 17–20; TEMP 36.6–37; O2SAT 91–100; BMI 22.5
--- NOTE | ~2025-02-12 | XR_ITS ---
EXAMINATION: XR chest 1V portable Exam Date/Time: 02/12/2025 17:00 CDT HISTORY: chest wall pain Comparison: 01/20/2025. RESULT: Lines, tubes, and devices: Cardiac valve replacement. Intact sternotomy wires.. Lungs and pleura: Clear. Cardiomediastinal silhouette: Stable. Other: No acute osseous or upper abdominal finding. IMPRESSION: No acute cardiopulmonary process. Reviewed, dictated and finalized at location K.
--- NOTE | ~2025-02-12 | CT_ITS ---
EXAMINATION: CT cervical spine wo con DATE: 02/12/2025 17:24 INDICATION: trauma TECHNIQUE: Computed tomography (CT) of the cervical spine was performed without intravenous contrast. Automated exposure control and iterative reconstruction technique were employed. The dose-length pro duct was 172.35 mGy-cm. COMPARISON: None. FINDINGS: Vertebral Body Alignment: Mild listheses, presumably on a degenerative basis. Craniocervical and atlantoaxial alignment: Mild degenerative change. Alignment intact. Osseous structures/fracture: No evidence of a lytic or blastic process in the visualized spine. No e vidence of acute fracture. C2-3 and C3-4 vertebral body. Cervical soft tissues: The paraspinal soft tissues planes are maintained. Biapical pleural scarring. Degenerative changes: Multilevel severe degenerative disc disease. Multilevel severe facet arthropath y. Severe bilateral neural foraminal narrowing secondary to degenerative changes. Severe central marian l narrowing at C3-4 secondary to degenerative changes. IMPRESSION: No acute fracture or traumatic malalignment in the cervical spine. Severe degenerative changes in the cervical spine, with severe multilevel bilateral neural foraminal narrowing and severe central canal narrowing at C3-4. Reviewed, dictated and finalized at location K. IMPRESSION: No acute fracture or traumatic malalignment in the cervical spine. Severe degen erative changes in the cervical spine, with severe multilevel bilateral neural foraminal narrowing and severe central canal narrowing at C3-4.
--- NOTE | ~2025-02-12 | CT_ITS ---
EXAMINATION: CT brain wo con DATE: 02/12/2025 17:24 INDICATION: trauma . TECHNIQUE: Computed tomography (CT) of the head was performed without intravenous contrast. The mA wa s adjusted according to patient size. Iterative reconstruction technique was employed. The dose-lengt h product was 605.33 mGy-cm. COMPARISON: 01/17/2025; MR brain 05/31/2024. FINDINGS: No acute intracranial hemorrhage or extra-axial fluid collection. No hydrocephalus, mass, or herniation. No acute ischemic infarct. Unremarkable dural venous sinus attenuation. No acute osseous abnormality. The aerated spaces are clear. Moderate atrophy and chronic white matter change. Atherosclerotic intracranial calcification. Focal o ld right cerebellar, left thalamus, and left basal ganglia infarcts. IMPRESSION: No acute intracranial process. Reviewed, dictated and finalized at location K.
--- NOTE | ~2025-02-12 | CT_ITS ---
EXAMINATION: CT thoracic lumbar wo con DATE: 02/12/2025 17:24 INDICATION: trauma . TECHNIQUE: Computed tomography (CT) of the thoracic and lumbar spine was performed without intravenou s contrast. Automated exposure control and iterative reconstruction technique were employed. The dose -length product was 936.34 mGy-cm. COMPARISON: CT cap 01/17/2025 FINDINGS: THORACIC SPINE: Vertebral body alignment intact. Vertebral body heights preserved. Stable T7 hemangioma. Moderate mul tilevel degenerative disc disease. No traumatic malalignment or fracture. Mild emphysematous change. Aortic valve repair. Possible proximal aortic repair. Coronary artery consultation. Atherosclerotic o ssification. Low-density blood pool as can be seen with anemia. Calcified right lower lobe granuloma. Dilated central pulmonary arteries as can be seen with hypertension. LUMBAR SPINE: Scoliosis 5 nonrib-bearing lumbar-type vertebral bodies. Pedicles intact. Stable grade 1 anterolisthe sis at L4-5. L5-S1 fusion. Multilevel severe degenerative disc disease and facet arthropathy. Multile [place] severe bilateral neural foraminal narrowing secondary to degenerative changes. Moderate-severe na rrowing of the central canal at L3-4 and L4-5 secondary to degenerative changes. IMPRESSION: No acute fracture or traumatic malalignment detected in the thoracic or lumbar spine Reviewed, dictated and finalized at location K.
--- OUTSIDE RECORDS SUMMARY | 2025-02-12 16:52 | XMS_ITS | Referral Summary ---
Author Organization [facility] Address [address] [place] [address] Care Team Providers Care Oracle Security Consultant Name Role Phone Dimitry Kamara MD Primary Care Provider [phone] Jesusita Han MD Unavailable [phone] Encounters Date Type Department Care Team Description 01/30/2025 Orders Only [facility] Medical Group Cardiology [address] [place] [address] Mishel Leal NP 12/26/2024 Telephone [facility] Medical [facility] Cardiology [address] [place] [address] Chase Rivas MD from Last 3 Months Allergies No known active allergies Medications insulin detemir (LEVEMIR) 100 unit/mL injection inject by subcutaneous route per prescriber's instructions. Insulin dosing requires individualizatio n. 0 vial 0 5 Active Additional Information Patient taking differently: 15 Units subcutaneous 2 times daily, Reported on 09/01/2024 omega-3 fatty acids (FISH OIL CONCENTRATE) 1,000 mg capsule take 1 Capsule by Oral route 2 times every day 0 2 Active Additional Information Patient taking differently: 2,000 mg oral 2 times daily, Reported on 09/01/2024 dapagliflozin-me tformin 10-1,000 mg tablet, IR & ER, biphasic 24hr Take 1 tablet by mouth daily Active POTASSIUM CHLORIDE ER 10 mEq CR capsule Take 1 capsule by mouth daily. 8 Active metoprolol (LOPRESSOR) 25 mg tablet Take [...] daily Active cyanocobalamin (Vitamin B-12) 100 mcg tabletIndication s:Prevention of Vitamin B12 Deficiency Take 1 tablet (100 mcg total) by mouth daily Active cholecalciferol (VITAMIN D-3) 38581 unit capsule Take 1 capsule (10,000 Units total) by mouth daily Active OneTouch Ultra Blue Test Strip strip 1 Active nystatin cream 1 Active triamcinolone (KENALOG) 0.1 % cream 1 Active metFORMIN (GLUCOPHAGE) 1,000 mg tablet Take 1 tablet (1,000 mg total) by mouth daily 3 Active Farxiga 5 mg tablet 4 Active niacin ER (NIASPAN) 500 mg CR tabletIndication s:Dyslipidemia Take 1 tablet (500 mg total) by mouth nightly 90 tablet 3 4 Active lisinopriL (PRINIVIL,ZESTRI L) 20 mg tabletIndication s:Essential hypertension Take 1 tablet (20 mg total) by mouth daily 90 tablet 3 4 Active apixaban (ELIQUIS) 5 mg tabletIndication s:Permanent atrial fibrillation (HCC) Take 1 tablet (5 mg total) by mouth 2 (two) times a day 180 tablet 3 4 Active donepeziL (ARICEPT) 10 mg tablet Take 1 tablet (10 mg total) by mouth nightly Active furosemide (LASIX) 20 mg tabletIndication s:Essential hypertension Take 0.5 tablets (10 mg total) by mouth daily 90 tablet 1 5 Active Active Problems Problem Noted Date Diagnosed [...] on file Legal Sex Male 7:14 PM INVESTIGATIVE AGENT Gender Identity Not on file Sexual Orientation Not on file Last Filed Vital Signs Vital Sign Reading Time Taken Comments Blood Pressure 102/58 09/01/2024 2:37 PM INVESTIGATIVE AGENT Pulse 55 09/01/2024 2:37 PM INVESTIGATIVE AGENT Temperature - - Respiratory Rate - - Oxygen Saturation 91% 09/01/2024 2:37 PM INVESTIGATIVE AGENT Inhaled Oxygen Concentration - - Weight 67.1 kg (148 lb) 09/01/2024 2:37 PM INVESTIGATIVE AGENT Height 172.7 cm (5' 8) 09/01/2024 2:37 PM INVESTIGATIVE AGENT Body Mass Index 22.5 09/01/2024 2:37 PM INVESTIGATIVE AGENT Plan of Treatment Not on file Procedures Procedure Name Priority Date/Time Associated Diagnosis Comments CARDIOLOGY DOCUMENT SCAN Routine 01/24/2025 4:22 PM CDT from Last 3 Months Results * Cardiology Document Scan (01/24/2025 4:22 PM CDT) Anatomical Region Laterality Modality Other Mishel Leal NP CV CARDIAC SERVICES PROCEDUR ES Final Result from Last 3 Months Insurance MEDICARE ADVANTAGE Member Subscriber Plan / Payer (Ef fective 2022-Present) Name:Moisés Yip Relation to Subscriber:Self Name:Moisés Yip Payer ID:[id number] (NAIC) Type:[facility] MEDICARE Address: [place] [id number] UHC MEDICARE ADVANTAGE Care Teams Oracle Security Consultant Relationship Specialty Start Date End Date Dimitry Kamara MD [address] [place] [address] PCP - General 10/24/16 Jesusita Han MD [address] [facility] [address] [place] [address] Distribution Sales Manager Cardiology 10/16/20
--- OUTSIDE RECORDS SUMMARY | 2025-02-12 16:52 | XMS_ITS | Clinical Summary ---
Author Organization [facility] Address [address] [place] [address] Care Team Providers Care Software Validation Technician Name Role Phone Dimitry Kamara MD Primary Care Provider [phone] Jesusita Han MD Unavailable [phone] Allergies No known active allergies Medications insulin [...] by mouth daily Active cholecalciferol (VITAMIN D-3) 64790 unit capsule Take 1 capsule (10,000 Units [...] Department Care Team Description 01/30/2025 Orders Only [facility] Medical [facility] Cardiology [address] [place] [address] Mishel Leal NP 12/26/2024 Telephone [facility] Cardiology [address] [place] [address] Chase Rivas MD from Last 3 Months [...] on file Legal Sex Male 7:14 PM SYNOPTIC METEOROLOGIST Gender Identity Not on file Sexual Orientation Not on file Obstetrics History Last Filed Vital Signs Vital Sign Reading Time Taken Comments Blood Pressure 102/58 09/01/2024 2:37 PM SYNOPTIC METEOROLOGIST Pulse 55 09/01/2024 2:37 PM SYNOPTIC METEOROLOGIST Temperature - - Respiratory Rate - - Oxygen Saturation 91% 09/01/2024 2:37 PM SYNOPTIC METEOROLOGIST Inhaled Oxygen Concentration - - Weight 67.1 kg (148 lb) 09/01/2024 2:37 PM SYNOPTIC METEOROLOGIST Height 172.7 cm (5' 8) 09/01/2024 2:37 PM SYNOPTIC METEOROLOGIST Body Mass Index 22.5 09/01/2024 2:37 PM SYNOPTIC METEOROLOGIST Plan of Treatment Health Maintenance Due Date Last Done Comments Depression Screening 1945 Fall Risk Assessment 1945 Hepatitis C Screening 1945 DTaP/Tdap/Td Vaccine (1 - Tdap) 1956 Hepatitis B Screening 10/12/1963 Zoster Vaccine (1 of 2) 10/12/1995 Abdominal Aortic Aneurysm (A AA) Screen 2010 Well Visit 65+ 2010 Pneumococcal vaccine 65+ (2 of 2 - PPSV23) 06/26/2017 05/01/2017 Influenza Vaccine (#1) 2025 9, 05/01/2017, 06/27/2015, Additional history exists Procedures Procedure Name Priority Date/Time Associated Diagnosis Comments CARDIOLOGY DOCUMENT SCAN Routine 01/24/2025 4:22 PM CDT from Last 3 Months Results * Cardiology Document Scan (01/24/2025 4:22 PM CDT) Anatomical Region Laterality Modality Other Mishel Leal NP CV CARDIAC SERVICES PROCEDUR ES Final Result from Last 3 Months Insurance [facility] MEDICARE ADVANTAGE [facility]ICARE ADVANT[facility] Address[address] [address] [place] [address] Care Teams Software Validation Technician Relationship Specialty Start Date End Date Dimitry Kamara MD [address] [facility] [address] [place] [address] PCP - General 10/24/16 Jesusita Han MD [address] [facility] [address] [place] [address] Director Home Cardiology 10/16/20
--- OUTSIDE RECORDS SUMMARY | 2025-02-12 16:52 | XMS_ITS | Clinical Summary ---
Author Organization [facility] Address [address] [place] [address] Care Team Providers Care Scada Operator Name Role Phone Dimitry Kamara MD Primary Care Provider [phone] Source Comments [facility],non-owned Affiliates and Associated Physician Practices is amultiple site organization consisting of ambulatory clinics and hospital sitesin [place], [place], [place] and [place]. This disclosure is being madepursuant to the Care Everywhere program and may not contain all information available regarding this patient. Last updated 18.[facility] Allergies No known active allergies Medications * Be aware that medications may not be up to date on this document. Alwaysverify current medications with the patient. warfarin (Coumadin) 1 MG tablet Take 3.5 (three and one-half) tablets by mouth SEE ADMIN INSTRUCTIONS Take warfarin 3.5 mg on Thursday, Thursday, Thursday, Thursday, and Thursday Active warfarin (Coumadin) 1 MG tablet Take 4.5 (four and one-half) tablets by mouth every Thursday & Take warfarin 4.5 mg on Thursday and Active digoxin (Lanoxin) 0.25 MG tablet Take 1 [...] (one) tablet by mouth at bedtime Active [place]-3 Fatty Acids (fish oil) 500 MG capsule Take 2,000 (two thousand) mg by mouth 2 times daily Active insulin detemir (Levemir) pen Inject 15 (fifteen) Units subcutaneously 2 times daily Active empaglifozin-m etFORMIN ER 24hr (Synjardy XR) 10-1000 MG tablet [...] Recorded Patient Health Questionnaire-2 Score 0 03/31/2024 [place] [employer] - Occupational Stress [...] place to sleep or slept in a long term (including now)? No 03/25/2024 Sex and Gender Information Value Date Recorded Sex Assigned at Not on file Legal Sex Male 7:39 PM CDT Gender Identity Not on file Sexual Orientation [...] 75+ series) 2020 COVID-19 VACCINE (1 - 2023-25 season) 2024 DIABETES RETINOPATHY SCREENING 03/28/2024 DIABETES-FOOT EXAM WITH MONOFILAMENT 03/28/2024 DEPRESSION SCREENING 07/27/2024 03/25/2024 DIABETES - URINE PROTEIN SCREENING 07/27/2024 MEDICARE AWV CALENDAR YEAR 2024 DIABETES-HGB A1C 09/27/2024 03/30/2024 INFLUENZA VACCINE (#1) 2025 DIABETES-SERUM CREATININE 04/01/20252023, 03/31/2024, 03/30/2024, Additional history exists HEPATITIS B VACCINE Aged Out No longe r eligible based on patient's age to complete this topic HIB VACCINE Aged Out No longer eligi ble based on patient's age to complete this topic HPV VACCINE Aged Out No longer eligi ble based on patient's age to complete this topic MENINGOCOCCAL (Group B) VACCINE SHARED DECISION-MAKING Aged Out No longer eligible based on patient's age to complete this topic MENINGOCOCCAL GROUPS A/C/Y/W VACCINE Aged Out No longer eligible based [...] - 26 mg/dL 04/01/2024 4:07 AM CDT [facility] Creatinine 0.69(L) 0.71 - 1.16 mg/dL 04/01/2024 4:07 AM [facility] Sodium 139 136 - 145 mmol/L [...] 3:04 AM CDT 04/01/2024 3:37 AM CDT Malacih Wayne MD LAB - CHEMISTRY ORDERABLES F inal Result Performing Organization Address [facility] Co de Phone Number [address] [address], [facility] [phone] * HEMOGLOBIN A1C (03/30/2024 7:56 AM CDT) Hemoglobin A1c 5.6 <=5.6 % 03/30/2024 9:41 AM [facility] Estimated Average Glucose 114 mg/dL 03/30/2024 9:41 AM [facility] Comment: HbA1c Interpretation: Normal : < 5.7% Pre-diabetes: 5.7-6.4% Diabetes: Equal to or greater than 6.5% Test results diagnostic of diabetes should be repeated for confirmation. Treatment target values recommended by ADA and other clinical organizations should be used to evaluate metabolic control in patients. Reference: [place] Diabetes Association, Standards of Care in Diabetes [...] CDT Malachi Wayne MD LAB - CHEMISTRY ORDERABLES F inal Result Performing Organization Address City/[facility]/ZIP Co de Phone Number [address] [address], [facility] [phone] from Last 3 Months or Most Recently Relevant to Health Maintenance Insurance [facility] MANAGED MEDICARE ADV Advance Directives * Full Code (Latest Code Status on File) Date Activated Date Inactivated Comments 03/25/2024 8:09 PM 04/01/2024 1:28 PM Care Teams Scada Operator Relationship Specialty Start Date End Date Dimitry Kamara MD [address] [facility] [address] [facility] [address] [place] [address] PCP - General Internal Medicine 04/13/24
--- OUTSIDE RECORDS SUMMARY | 2025-02-12 16:53 | XMS_ITS | Clinical Summary ---
Author Organization [facility] Address [address] 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
--- OUTSIDE RECORDS SUMMARY | 2025-02-12 16:53 | XMS_ITS | Encounter Summary ---
Author Organization [facility] Address 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 Gender Identity Not on file Sexual Orientation Not on file documented as of this encounter Plan of Treatment Not on file documented as of this encounter Procedures Procedure Name Priority Date/Time Associated Diagnosis Comments PROTIME-INR Routine 12/15/2007 10:33 AM CDT documented in this encounter Results * (ABNORMAL) PROTIME-INR (12/15/2007 10:33 AM CDT) PROTIME 23.3(H) 12.7 - 15.1 Seconds [facility] INR 2.1(H) 0.9 - 1.1 [facility] Comment: INR Therapeutic Range: Adult: 2.0 - 3.0 for pulmonary embolism or prophylaxis against venous thrombosis or systemic embolization. 2.0 - 3.0 for patients with tissue heart valves. 2.5 - 3.5 for patients with mechanical heart valves or post [place]. Pediatric (12 years and under): 1.5 - [...] Jr., MD HEMATOLOGY ORDERABLES F inal Result [facility] CLIA# [id number] [address] [place] [address] documented in this encounter Visit Diagnoses Diagnosis Atrial fibrillation (CMS/HCC) Atrial fibrillation documented in this encounter Care Teams Bale Stacker Relationship Specialty Start Date End Date Dimitry Kamara MD PCP - General 12/10/07 documented as of this encounter
--- OUTSIDE RECORDS SUMMARY | 2025-02-12 16:53 | XMS_ITS | Encounter Summary ---
Author Organization [facility] Address 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 [address] [email or web address] Cardiac Catheterization Comprehensive Report Patient: Patricia Dunham Study ID: [id number] Gender: M : 1945 Age: 62 years Race: 1 Room: Bed: Height: 70 in ( 177.8 cm ) Study Date: November 08, 2007 Patient status: Inpatient Weight: 218 lb ( 99.1 kg ) Access. #: [id number] POC: Attending MD: Lien Performing MD: Lien [...] - Right heart catheterization. A 7 Fr [place] catheter was advanced to the pulmonary [...] placed and contrast was injected. 60 degree CHINESE projection - Arterial hemostasis was obtained by [...] 16:02:33 Procedure Note Provider, Historical - 06/03/2008 [address] [place] [address] [email or web address] Cardiac Catheterization Comprehensive Report Patient: Patricia Dunham Study ID: [id number] Gender: M : 1945 Age: 62 years Race: 1 Room: Bed: Height: 70 in ( 177.8 cm ) Study Date: November 08, 2007 Patient status: Inpatient Weight: 218 lb ( 99.1 kg ) Access. #: [id number] POC: Attending MD: Lien Blair MD: Lien [...] - Right heart catheterization. A 7 Fr [place] catheter was advancedto the pulmonary artery [...] placed and contrast was injected. 60 degree CHINESE projection - Arterial hemostasis was obtained by [...] FLUOROSCOPY ORDERABLES Final Result Performing Organization Address City/[facility] Co de Phone Number INTERFACE SYSTEM Refer to clinic/hospital department * POC GLUCOSE (11/16/2007 7:22 AM CDT) GLUCOSE POC 97 65 - 99 mg/dL [facility] Venous blood specimen (specimen) 11/16/2007 7:22 AM CDT 11/16/2007 7:22 AM CDT Jesusita Roland MD POINT OF CARE TESTING Final Result Performing Organization Address [facility] de Phone Number [facility] [address] [place] [address] * (ABNORMAL) PROTIME-INR (11/16/2007 5:00 AM CDT) PROTIME 20.4(H) 12.7 - 15.1 Seconds [facility] INR 1.7(H) 0.9 - 1.1 [facility] Comment: INR Therapeutic Range: Adult: 2.0 - 3.0 for pulmonary embolism or prophylaxis against venous thrombosis or systemic embolization. 2.0 - 3.0 for patients with tissue heart valves. 2.5 - 3.5 for patients with mechanical heart valves or post NE. Pediatric (12 years and under): 1.5 - [...] HAMM HEMATOLOGY ORDERABLES Edited Performing Organization Address City/[facility]/ZIP Co de Phone Number [facility] [address] [address] * (ABNORMAL) POC GLUCOSE (11/15/2007 8:06 PM CDT) GLUCOSE POC 123(H) 65 - 99 mg/dL [facility] Venous blood specimen (specimen) 11/15/2007 8:06 PM CDT 11/15/2007 8:06 PM CDT Jesusita Roland MD POINT OF CARE TESTING Final Result Performing Organization Address [facility] Co de Phone Number [facility] [address] [place] [address] * (ABNORMAL) POC GLUCOSE (11/15/2007 4:47 PM CDT) GLUCOSE POC 62(L) 65 - 99 mg/dL [facility] Venous blood specimen (specimen) 11/15/2007 4:47 PM CDT 11/15/2007 4:47 PM CDT Jesusita Roland MD POINT OF CARE TESTING Final Result Performing Organization Address City/[facility]/ZIP Co de Phone Number [facility] [address] [place] [address] * (ABNORMAL) POC GLUCOSE (11/15/2007 10:57 AM CDT) GLUCOSE POC 162(H) 65 - 99 mg/dL [facility] Venous blood specimen (specimen) 11/15/2007 10:57 AM CDT 11/15/2007 10:57 AM CDT Jesusita Roland MD POINT OF CARE TESTING Final Result Performing Organization Address [facility] de Phone Number [facility] [address] [place] [address] * (ABNORMAL) PROTIME-INR (11/15/2007 4:00 AM CDT) PROTIME 16.8(H) 12.7 - 15.1 Seconds [facility] INR 1.4(H) 0.9 - 1.1 [facility] Comment: INR Therapeutic Range: Adult: 2.0 - 3.0 for pulmonary embolism or prophylaxis against venous thrombosis or systemic embolization. 2.0 - 3.0 for patients with tissue heart valves. 2.5 - 3.5 for patients with mechanical heart valves or post NE. Pediatric (12 years and under): 1.5 - [...] ORDERABLES F inal Result Performing Organization Address [facility] Co de Phone Number [facility] [address] [place] [address] * MAGNESIUM LEVEL (11/15/2007 4:00 AM CDT) MAGNESIUM 2.4 1.5 - 2.5 mg/dL [facility] Blood specimen (specimen) 11/15/2007 4:00 AM CDT 11/15/2007 4:24 AM CDT Mary Arellano Jr., MD CHEMISTRY ORDERABLES Fi nal Result Performing Organization Address [facility]/ZIP Co de Phone Number [facility] [address] [place] [address] * (ABNORMAL) BASIC METABOLIC PANEL (11/15/2007 4:00 AM CDT) CHLORIDE 99 96 - 108 mmol/L [facility] GLUCOSE 91 65 - 99 mg/dL [facility] SODIUM 134(L) 135 - 145 mmol/L [facility] CALCIUM 8.4 8.4 - 10.2 mg/dL [facility] CO2 26 22 - 30 mmol/L [facility] CREATININE 0.83 0.67 - 1.17 mg/dL [facility] POTASSIUM 4.3 3.5 - 4.9 mmol/L [facility] BUN 26(H) 6 - 20 mg/dL [facility] GFR, >60 >=60 mL/min/1. 7 sq meter [facility] GFR >60 >=60 mL/min/1. 7 sq meter [facility] Comment: Estimated GFR rate interpretative information for both Americans and non- Americans is available on the [facility] Intranet at: [email or web address] Select: Lab Policies and Procedures Select: Reference Ranges - GFR Blood specimen (specimen) 11/15/2007 4:00 AM CDT 11/15/2007 4:24 AM CDT Mary Arellano Jr., MD CHEMISTRY ORDERABLES Ed ited Performing Organization Address City/[facility]/ZIP Co de Phone Number [facility] [address] [place] [address] * (ABNORMAL) CBC WITH DIFFERENTIAL (11/15/2007 4:00 AM CDT) RBC 4.03(L) 4.50 - 5.40 M/uL [facility] MCHC 33.1 31.5 - 35.5 % [facility] MCV 98.3 82.0 - 99.0 fL [facility] PLATELETS 106(L) 140 - 350 K/uL [facility] HEMOGLOBIN 13.1(L) 13.6 - 16.5 g/dL [facility] RDW 13.3 11.5 - 14.5 % [facility] WBC 13.6(H) 4.0 - 9.8 K/uL [facility] MCH 32.5 27.2 - 32.6 pg [facility] MPV 12.2 9.3 - 12.4 fL [facility] HEMATOCRIT 39.6(L) 40.0 - 48.0 % [facility] RDW-STDEV 47.5 37.1 - 48.7 fL [facility] NEUTROPHILS 77(H) 45 - 70 % [facility] NEUTROPHIL ABSOLUTE 10.45(H) 1.90 - 7.00 K/uL [facility] EOSINOPHILS 1 0 - 7 % [facility] EOSINOPHIL ABSOLUTE 0.08 0.00 - 0.70 K/uL [facility] LYMPHOCYTES 11(L) 16 - 45 % [facility] LYMPHOCYTE ABSOLUTE 1.50 0.70 - 4.50 K/uL [facility] BASOPHILS 0 0 - 2 % [facility] BASOPHILS ABSOLUTE 0.01 0.00 - 0.20 K/uL [facility] MONOCYTES 11 3 - 13 % [facility] MONOCYTE ABSOLUTE 1.51(H) 0.10 - 1.30 K/uL [facility] Blood specimen (specimen) 11/15/2007 4:00 AM CDT 11/15/2007 4:24 AM CDT Mary Arellano Jr., MD HEMATOLOGY ORDERABLES E dited Performing Organization Address City/[facility] Co de Phone Number INTERFACE SYSTEM Refer to clinic/hospital department [facility] [address] [place] [address] * POC GLUCOSE (11/14/2007 8:08 PM CDT) GLUCOSE POC 93 65 - 99 mg/dL [facility] Venous blood specimen (specimen) 11/14/2007 8:08 PM CDT 11/14/2007 8:08 PM CDT Jesusita Roland MD POINT OF CARE TESTING Final Result Performing Organization Address [facility] Co de Phone Number [facility] [address] [address] * (ABNORMAL) POC GLUCOSE (11/14/2007 4:11 PM CDT) GLUCOSE POC 112(H) 65 - 99 mg/dL [facility] Venous blood specimen (specimen) 11/14/2007 4:11 PM CDT 11/14/2007 4:11 PM CDT Jesusita Roland MD POINT OF CARE TESTING Final Result Performing Organization Address City/[facility]/ZIP Co de Phone Number [facility] [address] [place] [address] * (ABNORMAL) POC GLUCOSE (11/14/2007 11:29 AM CDT) GLUCOSE POC 108(H) 65 - 99 mg/dL [facility] Venous blood specimen (specimen) 11/14/2007 11:29 AM CDT 11/14/2007 11:29 AM CDT Jesusita Roland MD POINT OF CARE TESTING Final Result [facility] [address] [place] [address] * POC GLUCOSE (11/14/2007 7:44 AM CDT) GLUCOSE POC 84 65 - 99 mg/dL [facility] Venous blood specimen (specimen) 11/14/2007 7:44 AM CDT 11/14/2007 7:44 AM CDT Jesusita Roland MD POINT OF CARE TESTING Final Result Performing Organization Address [facility] Co de Phone Number [facility] [address] [place] [address] * XR CHEST PA AND LATERAL (11/14/2007 5:55 AM CDT) Anatomical Region Laterality Modality Chest Other 11/14/2007 5:55 AM CDT Narrative 11/14/2007 8:46 AM CDT [facility] [address] [place], [place] [address] Admit Date: 11/02/2007 PATRICIA DUNHAM Sex: M Admit Prov: JESUSITA ROLAND Date: 1945 Primary Care Prov: MERYL FRIEDMAN CMRN: [id number] Room: [address] [place] [address] SSN: [id number] IMAGING SERVICES Ordering Prov: N/A Accession Number: [id number] Interpretation Chest 2 views, 11/14/07 Comparison: 11/12/2007 History: Congestive failure Two views demonstrate mild cardiomegaly unchanged status post median sternotomy and valve replacement. A small amount of bilateral pleural effusion is seen, with bilateral lower lobe atelectasis, left greater than right. There is no pneumothorax. . Dictated by: ASAI ALARCON 11/14/2007 08:44 Electronically signed by: ASIA ALARCON 11/14/2007 08:46 Procedure Note Asia Alarcon - 11/14/2007 [facility] [address] [place], [place] [address] Admit Date: 11/02/2007 PATRICIA DUNHAM Sex: M Admit Prov: JESUSITA ROLAND Date: 1945 Primary Care Prov: MERYL FRIEDMAN CMRN: [id number] Room: [address] [place] [address] SSN: [id number] IMAGING SERVICES Ordering Prov: N/A Interpretation Chest [...] Mary Arellano Jr., MD DIAGNOSTIC IMAGING ORDChavo [facility] Final Result * (ABNORMAL) CBC WITH DIFFERENTIAL (11/14/2007 4:25 AM CDT) MCH 32.1 27.2 - 32.6 pg [facility] MPV 12.5(H) 9.3 - 12.4 fL [facility] HEMATOCRIT 40.3 40.0 - 48.0 % [facility] RDW-STDEV 48.3 37.1 - 48.7 fL [facility] RBC 4.05(L) 4.50 - 5.40 M/uL [facility] MCHC 32.3 31.5 - 35.5 % [facility] MCV 99.5(H) 82.0 - 99.0 fL [facility] PLATELETS 81(L) 140 - 350 K/uL [facility] Comment: Persistent abnormal result HEMOGLOBIN 13.0(L) 13.6 - 16.5 g/dL [facility] RDW 13.3 11.5 - 14.5 % [facility] WBC 15.4(H) 4.0 - 9.8 K/uL [facility] MONOCYTE ABSOLUTE 1.92(H) 0.10 - 1.30 K/uL [facility] NEUTROPHILS 79(H) 45 - 70 % [facility] NEUTROPHIL ABSOLUTE 12.20(H) 1.90 - 7.00 K/uL [facility] EOSINOPHILS 0 0 - 7 % [facility] EOSINOPHIL ABSOLUTE 0.03 0.00 - 0.70 K/uL [facility] LYMPHOCYTES 8(L) 16 - 45 % [facility] LYMPHOCYTE ABSOLUTE 1.20 0.70 - 4.50 K/uL [facility] BASOPHILS 0 0 - 2 % [facility] BASOPHILS ABSOLUTE 0.02 0.00 - 0.20 K/uL [facility] MONOCYTES 13 3 - 13 % [facility] Blood specimen (specimen) 11/14/2007 4:25 AM CDT 11/14/2007 5:48 AM CDT us Charleen HAMM HEMATOLOGY ORDERABLES Edited INTERFACE SYSTEM Refer to clinic/hospital department [facility] [address] [place] [address] * (ABNORMAL) POC GLUCOSE (11/13/2007 8:54 PM CDT) GLUCOSE POC 114(H) 65 - 99 mg/dL [facility] Venous blood specimen (specimen) 11/13/2007 8:54 PM CDT 11/13/2007 8:54 PM CDT us Jesusita Roland MD POINT OF CARE TESTING Final Result Performing Organization Address [facility]/ZIP Co de Phone Number [facility] [address] [address] * (ABNORMAL) POC GLUCOSE (11/13/2007 4:21 PM CDT) GLUCOSE POC 64(L) 65 - 99 mg/dL [facility] Venous blood specimen (specimen) 11/13/2007 4:21 PM CDT 11/13/2007 4:21 PM CDT us Jesusita Roland MD POINT OF CARE TESTING Final Result Performing Organization Address [facility] Co de Phone Number [facility] [address] [address] * (ABNORMAL) POC GLUCOSE (11/13/2007 11:25 AM CDT) GLUCOSE POC 161(H) 65 - 99 mg/dL [facility] Venous blood specimen (specimen) 11/13/2007 11:25 AM CDT 11/13/2007 11:25 AM CDT us Jesusita Roland MD POINT OF CARE TESTING Final Result Performing Organization Address City/[facility] Co de Phone Number [facility] [address] [place] [address] * (ABNORMAL) POC GLUCOSE (11/13/2007 7:23 AM CDT) GLUCOSE POC 101(H) 65 - 99 mg/dL [facility] Venous blood specimen (specimen) 11/13/2007 7:23 AM CDT 11/13/2007 7:23 AM CDT Jesusita Roland MD POINT OF CARE TESTING Final Result Performing Organization Address City/[facility]/ZIP Co de Phone Number [facility] [address] [place] [address] * MAGNESIUM LEVEL (11/13/2007 5:00 AM CDT) MAGNESIUM 2.3 1.5 - 2.5 mg/dL [facility] Blood specimen (specimen) 11/13/2007 5:00 AM CDT 11/13/2007 5:46 AM CDT Mary Arellano Jr., MD CHEMISTRY ORDERABLES Fi nal Result Performing Organization Address [facility] Co de Phone Number [facility] [address] [place] [address] * (ABNORMAL) BASIC METABOLIC PANEL (11/13/2007 5:00 AM CDT) BUN 17 6 - 20 mg/dL [facility] CHLORIDE 100 96 - 108 mmol/L [facility] GLUCOSE 106(H) 65 - 99 mg/dL [facility] SODIUM 135 135 - 145 mmol/L [facility] CALCIUM 8.7 8.4 - 10.2 mg/dL [facility] CO2 28 22 - 30 mmol/L [facility] CREATININE 0.93 0.67 - 1.17 mg/dL [facility] POTASSIUM 4.6 3.5 - 4.9 mmol/L [facility] GFR, >60 >=60 mL/min/1. 7 sq meter [facility] GFR >60 >=60 mL/min/1. 7 sq meter [facility] Comment: Estimated GFR rate interpretative information for both Americans and non- Americans is available on the [facility] Intranet at: [email or web address] Select: Lab Policies and Procedures Select: Reference Ranges - GFR Blood specimen (specimen) 11/13/2007 5:00 AM CDT 11/13/2007 5:46 AM CDT Mary Arellano Jr., MD CHEMISTRY ORDERABLES Ed ited [facility] [address] [place] [address] * (ABNORMAL) CBC WITH DIFFERENTIAL (11/13/2007 5:00 AM CDT) HEMATOCRIT 44.2 40.0 - 48.0 % [facility] RDW-STDEV 47.5 37.1 - 48.7 fL [facility] RBC 4.43(L) 4.50 - 5.40 M/uL [facility] MCHC 32.6 31.5 - 35.5 % [facility] MCV 99.8(H) 82.0 - 99.0 fL [facility] PLATELETS 82(L) 140 - 350 K/uL [facility] HEMOGLOBIN 14.4 13.6 - 16.5 g/dL [facility] RDW 13.2 11.5 - 14.5 % [facility] WBC 19.9(H) 4.0 - 9.8 K/uL [facility] MCH 32.5 27.2 - 32.6 pg [facility] MPV 12.7(H) 9.3 - 12.4 fL [facility] EOSINOPHILS 0 0 - 7 % [facility] EOSINOPHIL ABSOLUTE 0.04 0.00 - 0.70 K/uL [facility] LYMPHOCYTES 7(L) 16 - 45 % [facility] LYMPHOCYTE ABSOLUTE 1.37 0.70 - 4.50 K/uL [facility] BASOPHILS 0 0 - 2 % [facility] BASOPHILS ABSOLUTE 0.02 0.00 - 0.20 K/uL [facility] MONOCYTES 12 3 - 13 % [facility] MONOCYTE ABSOLUTE 2.40(H) 0.10 - 1.30 K/uL [facility] NEUTROPHILS 81(H) 45 - 70 % [facility] NEUTROPHIL ABSOLUTE 16.10(H) 1.90 - 7.00 K/uL [facility] Blood specimen (specimen) 11/13/2007 5:00 AM CDT 11/13/2007 5:46 AM CDT us Mary Arellano Jr., MD HEMATOLOGY ORDERABLES E dited INTERFACE SYSTEM Refer to clinic/hospital department [facility] [address] [place] [address] * (ABNORMAL) POC GLUCOSE (11/12/2007 8:47 PM CDT) GLUCOSE POC 174(H) 65 - 99 mg/dL [facility] Venous blood specimen (specimen) 11/12/2007 8:47 PM CDT 11/12/2007 8:47 PM CDT us Jesusita Roland MD POINT OF CARE TESTING Final Result Performing Organization Address City/[facility] Co de Phone Number [facility] [address] [address] * (ABNORMAL) POC GLUCOSE (11/12/2007 6:10 PM CDT) GLUCOSE POC 165(H) 65 - 99 mg/dL [facility] Venous blood specimen (specimen) 11/12/2007 6:10 PM CDT 11/12/2007 6:10 PM CDT Jesusita Roland MD POINT OF CARE TESTING Final Result [facility] [address] [place] [address] * (ABNORMAL) POC GLUCOSE (11/12/2007 12:15 PM CDT) COMMENT, GLU POC Notified RN [facility] GLUCOSE POC 177(H) 65 - 99 mg/dL [facility] Venous blood specimen (specimen) 11/12/2007 12:15 PM CDT 11/12/2007 12:15 PM CDT Jesusita Roland MD POINT OF CARE TESTING Final Result Performing Organization Address [facility] Co de Phone Number [facility] [address] [place] [address] * XR CHEST PA OR AP (11/12/2007 8:55 AM CDT) Anatomical Region Laterality Modality Chest Other 11/12/2007 8:55 AM CDT Narrative 11/12/2007 9:23 AM CDT [facility] [address] [place], [place] [address] Admit Date: 11/02/2007 PATRICIA DUNHAM Sex: M Admit Prov: JESUSITA ROLAND Date: 1945 Primary Care Prov: MERYL FRIEDMAN CMRN: [id number] Room: [address] [place] [address] SSN: [id number] IMAGING SERVICES Ordering Prov: N/A Accession Number: [id number] Interpretation Chest single view 11/12/2007 History: Chest [...] 09:23 Procedure Note Jessica Pepe - 11/12/2007 [facility] [address] [place], [place] [address] Admit Date: 11/02/2007 PATRICIA DUNHAM Sex: M Admit Prov: JESUSITA ROLAND Date: 1945 Primary Care Prov: CARMINEBee MERYL Luh CMRN: [id number] Room: [address] [place] [address] SSN: [id number] IMAGING SERVICES Ordering Prov: N/A Interpretation Chest [...] GLUCOSE POC 176(H) 65 - 99 mg/dL [facility] Venous blood specimen (specimen) 11/12/2007 7:40 AM CDT 11/12/2007 7:40 AM CDT us Jesusita Roland MD POINT OF CARE TESTING Final Result [facility] [address] [place] [address] * XR CHEST PA OR AP (11/12/2007 7:20 AM CDT) Anatomical Region Laterality Modality Chest Other 11/12/2007 7:20 AM CDT Narrative 11/12/2007 9:12 AM CDT [facility] [address] [place], [place] [address] Admit Date: 11/02/2007 PATRICIA DUNHAM Sex: M Admit Prov: JESUSITA ROLAND Date: 1945 Primary Care Prov: MERYL FRIEDMAN CMRN: [id number] Room: [address] [place] [address] SSN: [id number] IMAGING SERVICES Ordering Prov: N/A Accession Number: [id number] Interpretation Chest single view 11/12/2007 History: Postop Findings: Comparison study is from the same day. The right [place] catheter has been removed. There is right intravenous catheter with its tip in SVC. One of the left chest tubes has been removed. No pneumothorax is seen. Small left pleural effusion and mild left lower lobe atelectasis are noted. . Dictated by: JESSICA PEPE 11/12/2007 09:11 Electronically signed by: JESSICA PEPE 11/12/2007 09:12 Procedure Note Jessica Pepe - 11/12/2007 [id number] [place], [place] [address] Admit Date: 11/02/2007 ANIKETPATRICIA MERRITT Sex: M Admit Prov: JESUSITA ROLAND Date: 1945 Primary Care Prov: MERYL FRIEDMAN CMRN: [id number] Room: [address] [place] [address] SSN: [id number] IMAGING SERVICES Ordering Prov: N/A Interpretation Chest [...] GLUCOSE POC 151(H) 65 - 99 mg/dL [facility] Venous blood specimen (specimen) 11/12/2007 6:18 AM CDT 11/12/2007 6:18 AM CDT us Jesusita Roland MD POINT OF CARE TESTING Final Result Performing Organization Address City/State/[facility] Co de Phone Number [facility] [address] [place] [address] * XR CHEST PA OR AP (11/12/2007 5:20 AM CDT) Anatomical Region Laterality Modality Chest Other 11/12/2007 5:20 AM CDT Narrative 11/12/2007 9:04 AM CDT [facility] [address] [place], [place] [address] Admit Date: 11/02/2007 PATRICIA DUNHAM Sex: M Admit Prov: JESUSITA ROLAND Date: 1945 Primary Care Prov: MERYL FRIEDMAN CMRN: [id number] Room: [facility] SSN: [id number] IMAGING SERVICES Ordering Prov: N/A Accession Number: [id number] Interpretation Chest, 11/12/2007 Clinical History: Respiratory abnormality and previous cardiac surgery. AP portable semiupright view of the chest on 11/12/2007 at 0515 hours is compared to 11/11/2007. The patient has been extubated. The patient is status post median sternotomy and prosthetic aortic valve. The mediastinal drainage tubes and left basilar chest tube are unchanged. A [place] catheter is noted with the tip projected [...] Procedure Note Jenna Maldonado MD - 11/12/2007 [facility] [address] [place], [place] [address] Admit Date: 11/02/2007 PATRICIA DUNHAM Sex: M Admit Prov: JESUSITA ROLAND Date: 1945 Primary Care Prov: AISHALopezMERYL GIORDANO Luh CMRN: [id number] Room: [address] [place] [address] SSN: [id number] IMAGING SERVICES Ordering Prov: N/A Interpretation Chest, [...] GLUCOSE POC 141(H) 65 - 99 mg/dL [facility] Venous blood specimen (specimen) 11/12/2007 5:06 AM CDT 11/12/2007 5:06 AM CDT Jesusita Roland MD POINT OF CARE TESTING Final Result Performing Organization Address City/[facility]/ZIP Co de Phone Number [facility] [address] [place] [address] * (ABNORMAL) POC GLUCOSE (11/12/2007 4:24 AM CDT) GLUCOSE POC 110(H) 65 - 99 mg/dL [facility] Venous blood specimen (specimen) 11/12/2007 4:24 AM CDT 11/12/2007 4:24 AM CDT Jesusita Roland MD POINT OF CARE TESTING Final Result Performing Organization Address City/[facility]/ZIP Co de Phone Number [facility] [address] [place] [address] * (ABNORMAL) PT AND APTT (11/12/2007 4:15 AM CDT) INR 1.3(H) 0.9 - 1.1 [facility] Comment: INR Therapeutic Range: Adult: 2.0 - 3.0 for pulmonary embolism or prophylaxis against venous thrombosis or systemic embolization. 2.0 - 3.0 for patients with tissue heart valves. 2.5 - 3.5 for patients with mechanical heart valves or post NE. Pediatric (12 years and under): 1.5 - 3.0 Although the target range in children is not well established, INR values of 1.5 - 3.0 are recommended for most patients. Higher values have been used in children with prosthetic cardiac valves and hereditary clotting disorders. (<3 days) therapeutic ranges have not been established. PROTIME 16.3(H) 12.7 - 15.1 Seconds [facility] PTT 26.9 24.4 - 36.4 Seconds [facility] Comment: PTT Therapeutic Range: Heparin Level PTT (seconds) <0.10 units/mL <53 0.10 - 0.30 units/mL 53 - 67 0.30 - 0.70 units/mL* 67 - 95* 0.70 - 1.00 units/mL 95 - 116 *corresponds to therapeutic range for unfractionated heparin Blood specimen (specimen) 11/12/2007 4:15 AM CDT 11/12/2007 4:35 AM CDT Mary Arellano Jr., MD HEMATOLOGY ORDERABLES E dited [facility] [address] [facility] [place] [place] [address] * (ABNORMAL) COMPREHENSIVE METABOLIC PANEL (11/12/2007 4:15 AM CDT) ALKALINE PHOSPHATASE 35(L) 40 - 129 U/L [facility] BILIRUBIN TOTAL 0.5 0.2 - 1.0 mg/dL [facility] CO2 22 22 - 30 mmol/L [facility] TOTAL PROTEIN 5.5(L) 6.3 - 8.6 g/dL [facility] POTASSIUM 4.8 3.5 - 4.9 mmol/L [facility] Comment: Slight hemolysis present. Result may be falsely elevated. GLUCOSE 144(H) 65 - 99 mg/dL [facility] AST 44(H) 12 - 38 U/L [facility] Comment: Hemolyzed: Result may be falsely elevated. BUN 14 6 - 20 mg/dL [facility] CALCIUM 7.8(L) 8.4 - 10.2 mg/dL [facility] CHLORIDE 108 96 - 108 mmol/L [facility] ALBUMIN 3.2(L) 3.4 - 4.8 g/dL [facility] CREATININE 0.89 0.67 - 1.17 mg/dL [facility] SODIUM 139 135 - 145 mmol/L [facility] ALT 25 0 - 41 U/L [facility] GFR, >60 >=60 mL/min/1. 7 sq meter [facility] GFR >60 >=60 mL/min/1. 7 sq meter [facility] Comment: Estimated GFR rate interpretative information for both Americans and non- Americans is available on the [facility] Intranet at: [email or web address] Select: Lab Policies and Procedures Select: Reference Ranges - GFR Blood specimen (specimen) 11/12/2007 4:15 AM CDT 11/12/2007 4:35 AM CDT Mary Arellano Jr., MD CHEMISTRY ORDERABLES Ed ited [facility] [address] [facility] [place] [address] * (ABNORMAL) CVR ONLY, CKMB/CK (11/12/2007 4:15 AM CDT) CKMB 18.2(AA) <=6.7 ng/mL [facility] Comment: Persistent abnormal result CKMB INTERP See Below [facility] Comment: Elevated CKMB,Consistent with Myocardial Injury CK 326(H) 10 - 170 U/L [facility] Comment: Hemolyzed: Result may be falsely elevated. CARDIAC RELATIVE INDEX 5.6(H) <=4.0 [facility] Blood specimen (specimen) 11/12/2007 4:15 AM CDT 11/12/2007 4:35 AM CDT Mary Arellano Jr., MD CHEMISTRY ORDERABLES Ed ited [facility] [address] [place], [place] [address] * (ABNORMAL) CBC WITH DIFFERENTIAL (11/12/2007 4:15 AM CDT) MCV 98.6 82.0 - 99.0 fL [facility] HEMOGLOBIN 15.9 13.6 - 16.5 g/dL [facility] RDW 13.1 11.5 - 14.5 % [facility] WBC 18.2(H) 4.0 - 9.8 K/uL [facility] MCH 32.9(H) 27.2 - 32.6 pg [facility] HEMATOCRIT 47.7 40.0 - 48.0 % [facility] RDW-STDEV 47.1 37.1 - 48.7 fL [facility] RBC 4.84 4.50 - 5.40 M/uL [facility] MCHC 33.3 31.5 - 35.5 % [facility] EOSINOPHILS 0 0 - 7 % [facility] EOSINOPHIL ABSOLUTE 0.00 0.00 - 0.70 K/uL [facility] LYMPHOCYTES 3(L) 16 - 45 % [facility] LYMPHOCYTE ABSOLUTE 0.52(L) 0.70 - 4.50 K/uL [facility] BASOPHILS 0 0 - 2 % [facility] BASOPHILS ABSOLUTE 0.02 0.00 - 0.20 K/uL [facility] MONOCYTES 9 3 - 13 % [facility] MONOCYTE ABSOLUTE 1.70(H) 0.10 - 1.30 K/uL [facility] NEUTROPHILS 88(H) 45 - 70 % [facility] NEUTROPHIL ABSOLUTE 15.98(H) 1.90 - 7.00 K/uL [facility] PLATELETS 81(L) 140 - 350 K/uL [facility] Comment: Platelets verified by smear review. MPV 12.7(H) 9.3 - 12.4 fL [facility] Blood specimen (specimen) 11/12/2007 4:15 AM CDT 11/12/2007 4:35 AM CDT Mary Arellano Jr., MD HEMATOLOGY ORDERABLES E dited Performing Organization Address City/[facility]/ZIP Co de Phone Number [facility] [address] [place] [address] * (ABNORMAL) POC GLUCOSE (11/12/2007 3:11 AM CDT) GLUCOSE POC 140(H) 65 - 99 mg/dL [facility] Venous blood specimen (specimen) 11/12/2007 3:11 AM CDT 11/12/2007 3:11 AM CDT Jesusita Roland MD POINT OF CARE TESTING Final Result Performing Organization Address [facility]/ZIP Co de Phone Number [facility] [address] [place] [address] * (ABNORMAL) POC GLUCOSE (11/12/2007 2:08 AM CDT) GLUCOSE POC 137(H) 65 - 99 mg/dL [facility] Venous blood specimen (specimen) 11/12/2007 2:08 AM CDT 11/12/2007 2:08 AM CDT us Jesusita Roland MD POINT OF CARE TESTING Final Result Performing Organization Address [facility] de Phone Number [facility] [address] [place], [place] [address] * (ABNORMAL) POC GLUCOSE (11/12/2007 1:00 AM CDT) GLUCOSE POC 186(H) 65 - 99 mg/dL [facility] Venous blood specimen (specimen) 11/12/2007 1:00 AM CDT 11/12/2007 1:00 AM CDT us Jesusita Roland MD POINT OF CARE TESTING Final Result Performing Organization Address [facility] de Phone Number [facility] [address] [place], [place] [address] * (ABNORMAL) POC GLUCOSE (11/12/2007 12:19 AM CDT) GLUCOSE POC 218(H) 65 - 99 mg/dL [facility] Venous blood specimen (specimen) 11/12/2007 12:19 AM CDT 11/12/2007 12:19 AM CDT us Jesusita Roland MD POINT OF CARE TESTING Final Result Performing Organization Address [facility] de Phone Number [facility] [address] [place] [address] * POTASSIUM LEVEL (11/12/2007 12:12 AM CDT) POTASSIUM 4.8 3.5 - 4.9 mmol/L [facility] Blood specimen (specimen) 11/12/2007 12:12 AM CDT 11/12/2007 12:17 AM CDT Mary Arellano Jr., MD CHEMISTRY ORDERABLES Fi nal Result Performing Organization Address [facility]/ZIP Co de Phone Number [facility] [address] [place] [address] * (ABNORMAL) POC GLUCOSE (11/11/2007 11:07 PM CDT) GLUCOSE POC 169(H) 65 - 99 mg/dL [facility] Venous blood specimen (specimen) 11/11/2007 11:07 PM CDT 11/11/2007 11:07 PM CDT Jesusita Roland MD POINT OF CARE TESTING Final Result Performing Organization Address [facility] Co de Phone Number [facility] [address] [place] [address] * (ABNORMAL) POC GLUCOSE (11/11/2007 10:21 PM CDT) GLUCOSE POC 137(H) 65 - 99 mg/dL [facility] Venous blood specimen (specimen) 11/11/2007 10:21 PM CDT 11/11/2007 10:21 PM CDT Jesusita Roland MD POINT OF CARE TESTING Final Result Performing Organization Address [facility] Co de Phone Number [facility] [address] [place] [address] * (ABNORMAL) POC RT, BLOOD GASES (11/11/2007 10:01 PM CDT) PH ARTERIAL 7.37 7.35 - 7.45 [facility] BASE EXCESS ABG -1.6 -2.0 - 3.0 mmol/L [facility] COMMENT, GASES POC RN NOTIFIED [facility] HEMATOCRIT POC 46.0 40.0 - 48.0 % [facility] O2 SAT EST ABG POC 99 95 - 99 % [facility] POTASSIUM POC 5.3(H) 3.5 - 4.9 mmol/L [facility] PCO2 ARTERIAL 41 35 - 48 mm Hg [facility] FIO2 40 [facility] HCO3 ARTERIAL 24 22 - 26 mmol/L [facility] PATIENT'S TEMPERATURE 37.0 Degree C [facility] CALICUM IONIZED, WHOLE BLOOD 4.33(L) 4.76 - 5.16 mg/dL [facility] PEEP POC 5 [facility] PO2 ARTERIAL 137(H) 83 - 108 mm Hg [facility] SODIUM POC 131(L) 135 - 145 mmol/L [facility] OXYGEN MODE SIMV [facility] Blood specimen (specimen) 11/11/2007 10:01 PM CDT 11/11/2007 10:01 PM CDT Jesusita Roland MD CHEMISTRY ORDERABLES Final R esult Performing Organization Address City/[facility]/ZIP Co de Phone Number [facility] [address] [facility] [place] [address] * (ABNORMAL) POC GLUCOSE (11/11/2007 9:11 PM CDT) GLUCOSE POC 166(H) 65 - 99 mg/dL [facility] Venous blood specimen (specimen) 11/11/2007 9:11 PM CDT 11/11/2007 9:11 PM CDT Jesusita Roland MD POINT OF CARE TESTING Final Result [facility] [address] [place] [address] * (ABNORMAL) POC GLUCOSE (11/11/2007 8:02 PM CDT) GLUCOSE POC 127(H) 65 - 99 mg/dL [facility] Venous blood specimen (specimen) 11/11/2007 8:02 PM CDT 11/11/2007 8:02 PM CDT Jesusita Roland MD POINT OF CARE TESTING Final Result Performing Organization Address [facility] Co de Phone Number [facility] [address] [place] [address] * (ABNORMAL) POTASSIUM LEVEL (11/11/2007 7:55 PM CDT) POTASSIUM 5.2(H) 3.5 - 4.9 mmol/L [facility] Comment: No significant hemolysis Blood specimen (specimen) 11/11/2007 7:55 PM CDT 11/11/2007 8:04 PM CDT Mary Arellano Jr., MD CHEMISTRY ORDERABLES Fi nal Result Performing Organization Address [facility] Co de Phone Number [facility] [address] [place] [address] * (ABNORMAL) POC RT, BLOOD GASES (11/11/2007 5:30 PM CDT) POTASSIUM POC 4.4 3.5 - 4.9 mmol/L [facility] PCO2 ARTERIAL 45 35 - 48 mm Hg [facility] FIO2 60 [facility] HCO3 ARTERIAL 25 22 - 26 mmol/L [facility] PATIENT'S TEMPERATURE 37.0 Degree C [facility] CALICUM IONIZED, WHOLE BLOOD 4.77 4.76 - 5.16 mg/dL [facility] PEEP POC 5 [facility] PO2 ARTERIAL 128(H) 83 - 108 mm Hg [facility] SODIUM POC 133(L) 135 - 145 mmol/L [facility] OXYGEN MODE SIMV/PSV [facility] PH ARTERIAL 7.36 7.35 - 7.45 [facility] BASE EXCESS ABG -0.4 -2.0 - 3.0 mmol/L [facility] COMMENT, GASES POC NOTIFIED [facility] HEMATOCRIT POC 43.0 40.0 - 48.0 % [facility] O2 SAT EST ABG POC 99 95 - 99 % [facility] Blood specimen (specimen) 11/11/2007 5:30 PM CDT 11/11/2007 5:30 PM CDT Result [facility] Jesusita Roland MD CHEMISTRY ORDERABLES Final R esult Performing Organization Address [facility]/ZIP Co de Phone Number [facility] [address] [place] [address] * (ABNORMAL) POC GLUCOSE (11/11/2007 5:23 PM CDT) GLUCOSE POC 140(H) 65 - 99 mg/dL [facility] Venous blood specimen (specimen) 11/11/2007 5:23 PM CDT 11/11/2007 5:23 PM CDT Jesusita Roland MD POINT OF CARE TESTING Final Result Performing Organization Address [facility] Co de Phone Number [facility] [address] [place] [address] * (ABNORMAL) PT AND APTT (11/11/2007 5:14 PM CDT) PROTIME 19.0(H) 12.7 - 15.1 Seconds [facility] INR 1.6(H) 0.9 - 1.1 [facility] Comment: INR Therapeutic Range: Adult: 2.0 - 3.0 for pulmonary embolism or prophylaxis against venous thrombosis or systemic embolization. 2.0 - 3.0 for patients with tissue heart valves. 2.5 - 3.5 for patients with mechanical heart valves or post NE. Pediatric (12 years and under): 1.5 - 3.0 Although the target range in children is not well established, INR values of 1.5 - 3.0 are recommended for most patients. Higher values have been used in children with prosthetic cardiac valves and hereditary clotting disorders. (<3 days) therapeutic ranges have not been established. PTT 31.1 24.4 - 36.4 Seconds [facility] Comment: PTT Therapeutic Range: Heparin Level PTT (seconds) <0.10 units/mL <53 0.10 - 0.30 units/mL 53 - 67 0.30 - 0.70 units/mL* 67 - 95* 0.70 - 1.00 units/mL 95 - 116 *corresponds to therapeutic range for unfractionated heparin PROTIME COMMENT Slightly Hemolyzed [facility] PTT COMMENT Slightly Hemolyzed [facility] Blood specimen (specimen) 11/11/2007 5:14 PM CDT 11/11/2007 5:30 PM CDT Mary Arellano Jr., MD HEMATOLOGY ORDERABLES E dited Performing Organization Address City/[facility]/ZIP Co de Phone Number [facility] [address] [place] [address] * (ABNORMAL) MAGNESIUM LEVEL (11/11/2007 5:14 PM CDT) MAGNESIUM 2.9(H) 1.5 - 2.5 mg/dL [facility] Blood specimen (specimen) 11/11/2007 5:14 PM CDT 11/11/2007 5:30 PM CDT Mary Arellano Jr., MD CHEMISTRY ORDERABLES Fi nal Result Performing Organization Address City/[facility]/ZIP Co de Phone Number [facility] [address] [place] [address] * (ABNORMAL) CVR ONLY, CKMB/CK (11/11/2007 5:14 PM CDT) Pathologist [facility] CKMB 15.8(AA) <=6.7 ng/mL [facility] Comment: Results called to Mona at 11/11/07 5:58 PM and read back verified. CKMB INTERP See Below [facility] Comment: Elevated CKMB,Consistent with Myocardial Injury. CK 156 10 - 170 U/L [facility] CARDIAC RELATIVE INDEX N/A <=4.0 [facility] Blood specimen (specimen) 11/11/2007 5:14 PM CDT 11/11/2007 5:30 PM CDT Mary Arellano Jr., MD CHEMISTRY ORDERABLES Ed ited [facility] [address] [facility] [place] [address] * (ABNORMAL) BASIC METABOLIC PANEL (11/11/2007 5:14 PM CDT) Pathologist [facility] BUN 15 6 - 20 mg/dL [facility] CHLORIDE 106 96 - 108 mmol/L [facility] GLUCOSE 142(H) 65 - 99 mg/dL [facility] SODIUM 135 135 - 145 mmol/L [facility] CALCIUM 8.2(L) 8.4 - 10.2 mg/dL [facility] CO2 22 22 - 30 mmol/L [facility] CREATININE 0.87 0.67 - 1.17 mg/dL [facility] POTASSIUM 4.5 3.5 - 4.9 mmol/L [facility] Comment: Moderate hemolysis present. Can cause significant falsely elevated result. Clinical judgement necessary. Redraw if indicated. GFR, >60 >=60 mL/min/1. 7 sq meter [facility] GFR >60 >=60 mL/min/1. 7 sq meter [facility] Comment: Estimated GFR rate interpretative information for both Americans and non- Americans is available on the [facility] Intranet at: [email or web address] Select: Lab Policies and Procedures Select: Reference Ranges - GFR Blood specimen (specimen) 11/11/2007 5:14 PM CDT 11/11/2007 5:30 PM CDT Mary Arellano Jr., MD CHEMISTRY ORDERABLES Ed ited [facility] [address] [place], [place] [address] * (ABNORMAL) CBC WITH DIFFERENTIAL (11/11/2007 5:14 PM CDT) HEMATOCRIT 45.6 40.0 - 48.0 % [facility] RDW-STDEV 46.7 37.1 - 48.7 fL [facility] RBC 4.64 4.50 - 5.40 M/uL [facility] MCHC 33.8 31.5 - 35.5 % [facility] MCV 98.3 82.0 - 99.0 fL [facility] HEMOGLOBIN 15.4 13.6 - 16.5 g/dL [facility] RDW 13.0 11.5 - 14.5 % [facility] WBC 21.8(H) 4.0 - 9.8 K/uL [facility] MCH 33.2(H) 27.2 - 32.6 pg [facility] MPV 11.7 9.3 - 12.4 fL [facility] PLATELETS 91(L) 140 - 350 K/uL [facility] PLATELET EST. Consistent w/ count Normal [facility] BASOPHILS ABSOLUTE 0.00 0.00 - 0.20 K/uL [facility] EOSINOPHILS 0 0 - 7 % [facility] MONOCYTE ABSOLUTE 1.31(H) 0.10 - 1.30 K/uL [facility] RBC MORPHOLOGY Normal Normal [facility] LYMPHOCYTES 1(L) 16 - 45 % [facility] NEUTROPHIL ABSOLUTE 20.27(H) 1.90 - 7.00 K/uL [facility] [facility] NEUTROPHILS, SEG 88(H) 45 - 70 % [facility] BASOPHILS 0 0 - 2 % [facility] EOSINOPHIL ABSOLUTE 0.00 0.00 - 0.70 K/uL [facility] MONOCYTES 6 3 - 13 % [facility] REVIEWED ON SMEAR Plt OK by Smear Rev. [facility] LYMPHOCYTE ABSOLUTE 0.22(L) 0.70 - 4.50 K/uL [facility] BANDS 5 0 - 5 % [facility] Blood specimen (specimen) 11/11/2007 5:14 PM CDT 11/11/2007 5:30 PM CDT us Mary Arellano Jr., MD HEMATOLOGY ORDERABLES E dited [facility] [address] [place] [address] * XR CHEST PA OR AP (11/11/2007 5:14 PM CDT) Anatomical Region Laterality Modality Chest Other 11/11/2007 5:14 PM CDT Narrative 11/11/2007 11:27 PM CDT [facility] [address] [place], [place] [address] Admit Date: 11/02/2007 PATRICIA DUNHAM Sex: M Admit Prov: JESUSITA ROLAND Date: 1945 Primary Care Prov: MERYL FRIEDMAN CMRN: [id number] Room: [address] [place] [address] SSN: [id number] IMAGING SERVICES Ordering Prov: N/A Accession Number: [id number] Interpretation CHEST, AP PORTABLE, 11/11/2007, 1725 HOURS History: Cardiac surgery. Findings: Sternal wires and mediastinal drains indicate recent cardiac surgery. Prosthetic heart valve is present. Endotracheal tube ends at the clavicles. Right internal jugular [place] catheter ends in the right pulmonary artery. Right lung is clear. Left basilar atelectasis and/or small left effusion are present. There is no pneumothorax. . Dictated by: CONRADO SCHROEDER 11/11/2007 17:39 Electronically signed by: CONRADO SCHROEDER 11/11/2007 23:27 Transcribed: 11/11/2007 17:41 SMM Procedure Note Conrado Schroeder MD - 11/11/2007 [facility] [address] [place], [place] [address] Admit Date: 11/02/2007 PATRICIA DUNHAM Sex: M Admit Prov: JESUSITA ROLAND Date: 1945 Primary Care Prov: MERYL FRIEDMAN CMRN: [id number] Room: [address] [place] [address] SSN: [id number] IMAGING SERVICES Ordering Prov: N/A Interpretation CHEST, AP PORTABLE, 11/11/2007, 1725 HOURS History: Cardiac surgery. Findings: Sternal wires and mediastinal drains indicate recentcardiac surgery. Prosthetic heart valve is present. Endotracheal tube ends atthe clavicles. Right internal jugular [place] catheter ends in theright pulmonary artery. Right [...] ARTERIAL 427(H) 83 - 108 mm Hg [facility] SODIUM POC 133(L) 135 - 145 mmol/L [facility] TCO2, ABG POC 26(H) 19 - 24 mmol/L [facility] PH ARTERIAL 7.36 7.35 - 7.45 [facility] BASE EXCESS ABG -1.2 -2.0 - 3.0 mmol/L [facility] HEMATOCRIT POC 35.0(L) 40.0 - 48.0 % [facility] O2 SAT EST ABG POC 100(H) 95 - 99 % [facility] LACTIC ACID 2.1 0.5 - 2.2 mmol/L [facility] POTASSIUM POC 4.3 3.5 - 4.9 mmol/L [facility] PCO2 ARTERIAL 43 35 - 48 mm Hg [facility] HCO3 ARTERIAL 24 22 - 26 mmol/L [facility] PATIENT'S TEMPERATURE 37.0 Degree C [facility] CALICUM IONIZED, WHOLE BLOOD 5.05 4.76 - 5.16 mg/dL [facility] GLUCOSE POC 176(H) 65 - 99 mg/dL [facility] Blood specimen (specimen) 11/11/2007 4:44 PM CDT 11/11/2007 4:44 PM CDT Jesusita Roland MD CHEMISTRY ORDERABLES Final R esult [facility] [address] [place] [address] * (ABNORMAL) POC RT, BLOOD GASES (11/11/2007 4:17 PM CDT) GLUCOSE POC 200(H) 65 - 99 mg/dL [facility] O2 SAT EST ABG POC 100(H) 95 - 99 % [facility] SODIUM POC 132(L) 135 - 145 mmol/L [facility] PH ARTERIAL 7.34(L) 7.35 - 7.45 [facility] TCO2, ABG POC 25(H) 19 - 24 mmol/L [facility] COMMENT, GASES POC POST BYPASS [facility] PATIENT'S TEMPERATURE 37.0 Degree C [facility] POTASSIUM POC 4.6 3.5 - 4.9 mmol/L [facility] PCO2 ARTERIAL 44 35 - 48 mm Hg [facility] LACTIC ACID 2.2 0.5 - 2.2 mmol/L [facility] CALICUM IONIZED, WHOLE BLOOD 5.21(H) 4.76 - 5.16 mg/dL [facility] BASE EXCESS ABG -2.1(L) -2.0 - 3.0 mmol/L [facility] PO2 ARTERIAL 332(H) 83 - 108 mm Hg [facility] HCO3 ARTERIAL 24 22 - 26 mmol/L [facility] HEMATOCRIT POC 34.0(L) 40.0 - 48.0 % [facility] Blood specimen (specimen) 11/11/2007 4:17 PM CDT 11/11/2007 4:17 PM CDT us Jesusita Roland MD CHEMISTRY ORDERABLES Final R esult [facility] [address] [place] [address] * (ABNORMAL) POC RT, BLOOD GASES (11/11/2007 3:56 PM CDT) PATIENT'S TEMPERATURE 37.0 Degree C [facility] LACTIC ACID 2.5(H) 0.5 - 2.2 mmol/L [facility] CALICUM IONIZED, WHOLE BLOOD 4.49(L) 4.76 - 5.16 mg/dL [facility] PO2 ARTERIAL 178(H) 83 - 108 mm Hg [facility] SODIUM POC 132(L) 135 - 145 mmol/L [facility] PH ARTERIAL 7.37 7.35 - 7.45 [facility] BASE EXCESS ABG 0.5 -2.0 - 3.0 mmol/L [facility] HEMATOCRIT POC 29.0(L) 40.0 - 48.0 % [facility] GLUCOSE POC 188(H) 65 - 99 mg/dL [facility] O2 SAT EST ABG POC 100(H) 95 - 99 % [facility] POTASSIUM POC 5.4(H) 3.5 - 4.9 mmol/L [facility] TCO2, ABG POC 27(H) 19 - 24 mmol/L [facility] PCO2 ARTERIAL 45 35 - 48 mm Hg [facility] HCO3 ARTERIAL 26 22 - 26 mmol/L [facility] COMMENT, GASES POC ON BYPASS [facility] Blood specimen (specimen) 11/11/2007 3:56 PM CDT 11/11/2007 3:56 PM CDT us Jesusita Roland MD CHEMISTRY ORDERABLES Final R esult [facility] [address] [place] [address] * (ABNORMAL) POC RT, BLOOD GASES (11/11/2007 3:46 PM CDT) PATIENT'S TEMPERATURE 37.0 Degree C [facility] LACTIC ACID 2.4(H) 0.5 - 2.2 mmol/L [facility] CALICUM IONIZED, WHOLE BLOOD 4.57(L) 4.76 - 5.16 mg/dL [facility] PO2 ARTERIAL 315(H) 83 - 108 mm Hg [facility] SODIUM POC 129(L) 135 - 145 mmol/L [facility] PH ARTERIAL 7.30(L) 7.35 - 7.45 [facility] BASE EXCESS ABG -4.6(L) -2.0 - 3.0 mmol/L [facility] HEMATOCRIT POC 29.0(L) 40.0 - 48.0 % [facility] GLUCOSE POC 196(H) 65 - 99 mg/dL [facility] O2 SAT EST ABG POC 100(H) 95 - 99 % [facility] POTASSIUM POC 5.3(H) 3.5 - 4.9 mmol/L [facility] TCO2, ABG POC 23 19 - 24 mmol/L [facility] PCO2 ARTERIAL 44 35 - 48 mm Hg [facility] HCO3 ARTERIAL 22 22 - 26 mmol/L [facility] COMMENT, GASES POC ON BYPASS [facility] Blood specimen (specimen) 11/11/2007 3:46 PM CDT 11/11/2007 3:46 PM CDT us Jesusita Roland MD CHEMISTRY ORDERABLES Final R esult [facility] [address] [place] [address] * (ABNORMAL) POC RT, BLOOD GASES (11/11/2007 3:11 PM CDT) GLUCOSE POC 204(H) 65 - 99 mg/dL [facility] PCO2 ARTERIAL 39 35 - 48 mm Hg [facility] POTASSIUM POC 5.6(H) 3.5 - 4.9 mmol/L [facility] PCO2 TEMP CORRECT 35 mm Hg [facility] TCO2, ABG POC 24 19 - 24 mmol/L [facility] PATIENT'S TEMPERATURE 34.5 Degree C [facility] HCO3 ARTERIAL 23 22 - 26 mmol/L [facility] COMMENT, GASES POC ON BYPASS [facility] PO2 ARTERIAL 239(H) 83 - 108 mm Hg [facility] PO2 TEMP CORRECT 227 mm Hg [facility] LACTIC ACID 1.5 0.5 - 2.2 mmol/L [facility] CALICUM IONIZED, WHOLE BLOOD 4.45(L) 4.76 - 5.16 mg/dL [facility] PH ARTERIAL 7.38 7.35 - 7.45 [facility] PH TEMP CORRECT 7.42 [facility] SODIUM POC 129(L) 135 - 145 mmol/L [facility] O2 SAT EST ABG POC 100(H) 95 - 99 % [facility] HEMATOCRIT POC 32.0(L) 40.0 - 48.0 % [facility] BASE EXCESS ABG -1.8 -2.0 - 3.0 mmol/L [facility] Blood specimen (specimen) 11/11/2007 3:11 PM CDT 11/11/2007 3:11 PM CDT us Jesusita Roland MD CHEMISTRY ORDERABLES Final R esult [facility] [address] [place] [address] * (ABNORMAL) POC RT, BLOOD GASES (11/11/2007 2:45 PM CDT) O2 SAT EST ABG POC 100(H) 95 - 99 % [facility] BASE EXCESS ABG -0.6 -2.0 - 3.0 mmol/L [facility] GLUCOSE POC 169(H) 65 - 99 mg/dL [facility] HEMATOCRIT POC 30.0(L) 40.0 - 48.0 % [facility] PCO2 ARTERIAL 55(H) 35 - 48 mm Hg [facility] PCO2 TEMP CORRECT 49 mm Hg [facility] TCO2, ABG POC 28(H) 19 - 24 mmol/L [facility] POTASSIUM POC 5.5(H) 3.5 - 4.9 mmol/L [facility] PATIENT'S TEMPERATURE 34.5 Degree C [facility] COMMENT, GASES POC ON BYPASS [facility] HCO3 ARTERIAL 26 22 - 26 mmol/L [facility] PO2 ARTERIAL 261(H) 83 - 108 mm Hg [facility] CALICUM IONIZED, WHOLE BLOOD 4.53(L) 4.76 - 5.16 mg/dL [facility] PO2 TEMP CORRECT 249 mm Hg [facility] LACTIC ACID 1.2 0.5 - 2.2 mmol/L [facility] PH ARTERIAL 7.29(L) 7.35 - 7.45 [facility] PH TEMP CORRECT 7.32 [facility] SODIUM POC 128(L) 135 - 145 mmol/L [facility] Blood specimen (specimen) 11/11/2007 2:45 PM CDT 11/11/2007 2:45 PM CDT Jesusita Roland MD CHEMISTRY ORDERABLES Final R esult Performing Organization Address City/[facility]/ZIP Co de Phone Number [facility] [address] [place] [address] * MISCELLANEOUS CULTURE (11/11/2007 2:45 PM CDT) PRELIMINARY REPORT No growth 48 hours [facility] FINAL REPORT No growth 3 days [facility] 11/11/2007 2:45 PM CDT 11/11/2007 5:51 PM CDT Mary Arellano Jr., MD MICROBIOLOGY - GENERAL ORDERABLES Final Result Performing Organization Address [facility] Co de Phone Number [facility] [address] [facility] [place] [address] * PATHOLOGY (11/11/2007 2:39 PM CDT) FINAL REPORT [facility] [address] [place], [place] [address] Patient: PATRICIA DUNHAM : 1945 Procedure Date: 11/11/2007 Accession Date: 11/12/2007 Case No: [id number] Ordering Dr: MARY ARELLANO Case types AW, BW, FW, NW and SH are performed by [facility], [place], [place] SURGICAL PATHOLOGY & NON-GYNECOLOGIC CYTOPATHOLOGY REPORT [...] valve cusps. The tissue is severely calcified. Intern sections are submitted in cassettes A1-2 for decalcification. Received in the second container, additionally labeled ascending aorta, is a 5.5-cm long by 4-cm diameter tubular piece of yellow-tatum fibromembranous tissue consistent with aorta. A dissecting aneurysm is not identified. The intimal surface is remarkable for a fatty streak. There is no evidence of calcification. Intern sections are submitted in cassette B1. KLA/DRC 11.12.2007 12:50 pm Microscopic: The slides are labeled Patricia Aniketpineda and [id number]. The aortic valve tissue shows areas of [...] CDT) PCO2 TEMP CORRECT 34 mm Hg [facility] PATIENT'S TEMPERATURE 34.5 Degree C [facility] PO2 ARTERIAL 346(H) 83 - 108 mm Hg [facility] SODIUM POC 133(L) 135 - 145 mmol/L [facility] GLUCOSE POC 117(H) 65 - 99 mg/dL [facility] PH ARTERIAL 7.42 7.35 - 7.45 [facility] PO2 TEMP CORRECT 333 mm Hg [facility] TCO2, ABG POC 26(H) 19 - 24 mmol/L [facility] POTASSIUM POC 5.0(H) 3.5 - 4.9 mmol/L [facility] HEMATOCRIT POC 31.0(L) 40.0 - 48.0 % [facility] CALICUM IONIZED, WHOLE BLOOD 4.57(L) 4.76 - 5.16 mg/dL [facility] O2 SAT EST ABG POC 100(H) 95 - 99 % [facility] HCO3 ARTERIAL 25 22 - 26 mmol/L [facility] COMMENT, GASES POC ON BYPASS [facility] PCO2 ARTERIAL 38 35 - 48 mm Hg [facility] BASE EXCESS ABG 0.2 -2.0 - 3.0 mmol/L [facility] LACTIC ACID 1.5 0.5 - 2.2 mmol/L [facility] PH TEMP CORRECT 7.46 [facility] Blood specimen (specimen) 11/11/2007 2:14 PM CDT 11/11/2007 2:14 PM CDT us Jesusita Roland MD CHEMISTRY ORDERABLES Final R esult [facility] [address] [facility] [place] [address] * (ABNORMAL) POC RT, BLOOD GASES (11/11/2007 2:07 PM CDT) PCO2 VENOUS 46 38 - 50 mm Hg [facility] PCO2 TEMP CORRECT 40 mm Hg [facility] TCO2, MVBG POC 27(H) 22 - 26 mmol/L [facility] POTASSIUM POC 5.4(H) 3.5 - 4.9 mmol/L [facility] PATIENT'S TEMPERATURE 34.0 Degree C [facility] COMMENT, GASES POC ON BYPASS [facility] HCO3 MIXED VENOUS 26 22 - 29 mmol/L [facility] PO2 MVBG 58(H) 25 - 40 mm Hg [facility] CALICUM IONIZED, WHOLE BLOOD 4.57(L) 4.76 - 5.16 mg/dL [facility] PO2 TEMP CORRECT 47 mm Hg [facility] LACTIC ACID 1.6 0.5 - 2.2 mmol/L [facility] PH MVBG 7.36 7.32 - 7.43 [facility] PH TEMP CORRECT 7.40 [facility] SODIUM POC 134(L) 135 - 145 mmol/L [facility] O2 SAT EST MVBG POC 89(H) 40 - 70 % [facility] BASE EXCESS VENOUS 0.3 -2.0 - 3.0 mmol/L [facility] GLUCOSE POC 110(H) 65 - 99 mg/dL [facility] HEMATOCRIT POC 30.0(L) 40.0 - 48.0 % [facility] Blood specimen (specimen) 11/11/2007 2:07 PM CDT 11/11/2007 2:07 PM CDT us Jesusita Roland MD CHEMISTRY ORDERABLES Final R esult [facility] [address] [place] [address] * (ABNORMAL) POC RT, BLOOD GASES (11/11/2007 1:50 PM CDT) PATIENT'S TEMPERATURE 37.0 Degree C [facility] GLUCOSE POC 116(H) 65 - 99 mg/dL [facility] CALICUM IONIZED, WHOLE BLOOD 4.53(L) 4.76 - 5.16 mg/dL [facility] PO2 ARTERIAL 476(H) 83 - 108 mm Hg [facility] TCO2, ABG POC 27(H) 19 - 24 mmol/L [facility] SODIUM POC 134(L) 135 - 145 mmol/L [facility] PH ARTERIAL 7.39 7.35 - 7.45 [facility] BASE EXCESS ABG 0.8 -2.0 - 3.0 mmol/L [facility] HEMATOCRIT POC 40.0 40.0 - 48.0 % [facility] O2 SAT EST ABG POC 100(H) 95 - 99 % [facility] POTASSIUM POC 4.2 3.5 - 4.9 mmol/L [facility] LACTIC ACID 1.3 0.5 - 2.2 mmol/L [facility] PCO2 ARTERIAL 43 35 - 48 mm Hg [facility] HCO3 ARTERIAL 26 22 - 26 mmol/L [facility] Blood specimen (specimen) 11/11/2007 1:50 PM CDT 11/11/2007 1:50 PM CDT us Jesusita Roland MD CHEMISTRY ORDERABLES Final R esult [facility] [address] [facility] [place] [address] * (ABNORMAL) POC RT, BLOOD GASES (11/11/2007 12:52 PM CDT) COMMENT, GASES POC POST INDUCTION [facility] HCO3 ARTERIAL 27(H) 22 - 26 mmol/L [facility] PATIENT'S TEMPERATURE 37.0 Degree C [facility] CALICUM IONIZED, WHOLE BLOOD 4.57(L) 4.76 - 5.16 mg/dL [facility] LACTIC ACID 0.9 0.5 - 2.2 mmol/L [facility] PO2 ARTERIAL 487(H) 83 - 108 mm Hg [facility] SODIUM POC 134(L) 135 - 145 mmol/L [facility] PH ARTERIAL 7.40 7.35 - 7.45 [facility] BASE EXCESS ABG 1.4 -2.0 - 3.0 mmol/L [facility] GLUCOSE POC 119(H) 65 - 99 mg/dL [facility] HEMATOCRIT POC 47.0 40.0 - 48.0 % [facility] O2 SAT EST ABG POC 100(H) 95 - 99 % [facility] TCO2, ABG POC 28(H) 19 - 24 mmol/L [facility] POTASSIUM POC 4.0 3.5 - 4.9 mmol/L [facility] PCO2 ARTERIAL 43 35 - 48 mm Hg [facility] Blood specimen (specimen) 11/11/2007 12:52 PM CDT 11/11/2007 12:52 PM CDT Jesusita Roland MD CHEMISTRY ORDERABLES Final R esult Performing Organization Address City/[facility]/ZIP Co de Phone Number [facility] [address] [place] [address] * (ABNORMAL) POC GLUCOSE (11/11/2007 7:03 AM CDT) GLUCOSE POC 116(H) 65 - 99 mg/dL [facility] Venous blood specimen (specimen) 11/11/2007 7:03 AM CDT 11/11/2007 7:03 AM CDT us Jesusita Roland MD POINT OF CARE TESTING Final Result [facility] [address] [place] [address] * (ABNORMAL) POC GLUCOSE (11/10/2007 8:15 PM CDT) GLUCOSE POC 131(H) 65 - 99 mg/dL [facility] Venous blood specimen (specimen) 11/10/2007 8:15 PM CDT 11/10/2007 8:15 PM CDT Jesusita Roland MD POINT OF CARE TESTING Final Result [facility] [address] [address] * (ABNORMAL) POC GLUCOSE (11/10/2007 5:28 PM CDT) GLUCOSE POC 100(H) 65 - 99 mg/dL [facility] Venous blood specimen (specimen) 11/10/2007 5:28 PM CDT 11/10/2007 5:28 PM CDT Jesusita Roland MD POINT OF CARE TESTING Final Result Performing Organization Address City/[facility]/ZIP Co de Phone Number [facility] [address] [address] * (ABNORMAL) POC GLUCOSE (11/10/2007 11:41 AM CDT) GLUCOSE POC 184(H) 65 - 99 mg/dL [facility] Venous blood specimen (specimen) 11/10/2007 11:41 AM CDT 11/10/2007 11:41 AM CDT us Jesusita Roland MD POINT OF CARE TESTING Final Result Performing Organization Address City/[facility]/ZIP Co de Phone Number [facility] [address] [address] * (ABNORMAL) POC GLUCOSE (11/10/2007 7:36 AM CDT) GLUCOSE POC 108(H) 65 - 99 mg/dL [facility] Venous blood specimen (specimen) 11/10/2007 7:36 AM CDT 11/10/2007 7:36 AM CDT us Jesusita Roland MD POINT OF CARE TESTING Final Result Performing Organization Address City/[facility]/ZIP Co de Phone Number [facility] [address] [place] [id number] * (ABNORMAL) POC GLUCOSE (11/09/2007 8:15 PM CDT) GLUCOSE POC 170(H) 65 - 99 mg/dL [facility] Venous blood specimen (specimen) 11/09/2007 8:15 PM CDT 11/09/2007 8:15 PM CDT Jesusita Roland MD POINT OF CARE TESTING Final Result Performing Organization Address [facility] Co de Phone Number [facility] [address] [place] [address] * (ABNORMAL) POC GLUCOSE (11/09/2007 5:51 PM CDT) GLUCOSE POC 151(H) 65 - 99 mg/dL [facility] Venous blood specimen (specimen) 11/09/2007 5:51 PM CDT 11/09/2007 5:51 PM CDT us Jesusita Roland MD POINT OF CARE TESTING Final Result Performing Organization Address City/[facility]/ZIP Co de Phone Number [facility] [address] [place] [address] * (ABNORMAL) POC GLUCOSE (11/09/2007 11:34 AM CDT) GLUCOSE POC 146(H) 65 - 99 mg/dL [facility] Venous blood specimen (specimen) 11/09/2007 11:34 AM CDT 11/09/2007 11:34 AM CDT Jesusita Roland MD POINT OF CARE TESTING Final Result Performing Organization Address City/[facility]/ZIP Co de Phone Number [facility] [address] [place] [address] * (ABNORMAL) POC GLUCOSE (11/09/2007 8:35 AM CDT) GLUCOSE POC 111(H) 65 - 99 mg/dL [facility] Venous blood specimen (specimen) 11/09/2007 8:35 AM CDT 11/09/2007 8:35 AM CDT Jesusita Roland MD POINT OF CARE TESTING Final Result Performing Organization Address [facility] Co de Phone Number [facility] [address] [place] [address] * XR CHEST PA AND LATERAL (11/09/2007 7:32 AM CDT) Anatomical Region Laterality Modality Chest Other 11/09/2007 7:32 AM CDT Narrative 11/09/2007 10:56 AM CDT Ordered by SOFYA PRINCE [facility] [address] [place], [place] [address] Admit Date: 11/02/2007 PATRICIA DUNHAM Sex: M Admit Prov: JESUSITA ROLAND Date: 1945 Primary Care Prov: MERYL FRIEDMAN CMRN: [id number] Room: [address] [place] [address] SSN: [id number] IMAGING SERVICES Ordering Prov: N/A Accession Number: [id number] Interpretation Exam: Chest x-ray PA and lateral. [...] Rios - 11/09/2007 Ordered by SOFYA PRINCE [facility] [address] [place], [place] [address] Admit Date: 11/02/2007 PATRICIA DUNHAM Sex: M Admit Prov: JESUSITA ROLAND Date: 1945 Primary Care Prov: MERYL FRIEDMAN CMRN: [id number] Room: [address] [place] [address] SSN: [id number] IMAGING SERVICES Ordering Prov: N/A Interpretation Exam: [...] DIGOXIN LEVEL 0.7(L) 0.8 - 2.0 ng/mL [facility] Comment:Digoxin Toxic Level = >2.0 ng/mL Blood specimen (specimen) 11/09/2007 5:45 AM CDT 11/09/2007 6:23 AM CDT us Sofya HAMM CHEMISTRY ORDERABLES Final Res ult [facility] [address] [place] [address] * (ABNORMAL) COMPREHENSIVE METABOLIC PANEL (11/09/2007 5:45 AM CDT) CO2 25 22 - 30 mmol/L [facility] TOTAL PROTEIN 6.5 6.3 - 8.6 g/dL [facility] SODIUM 136 135 - 145 mmol/L [facility] POTASSIUM 3.9 3.5 - 4.9 mmol/L [facility] GLUCOSE 115(H) 65 - 99 mg/dL [facility] AST 28 12 - 38 U/L [facility] BUN 18 6 - 20 mg/dL [facility] CALCIUM 8.4 8.4 - 10.2 mg/dL [facility] ALBUMIN 3.6 3.4 - 4.8 g/dL [facility] CHLORIDE 102 96 - 108 mmol/L [facility] CREATININE 0.98 0.67 - 1.17 mg/dL [facility] ALT 35 0 - 41 U/L [facility] ALKALINE PHOSPHATASE 44 40 - 129 U/L [facility] BILIRUBIN TOTAL 0.6 0.2 - 1.0 mg/dL [facility] GFR, >60 >=60 mL/min/1. 7 sq meter [facility] GFR >60 >=60 mL/min/1. 7 sq meter [facility] Comment: Estimated GFR rate interpretative information for both Americans and non- Americans is available on the [facility] Intranet at: [email or web address] Select: Lab Policies and Procedures Select: Reference Ranges - GFR Blood specimen (specimen) 11/09/2007 5:45 AM CDT 11/09/2007 6:23 AM CDT Sofya HAMM CHEMISTRY ORDERABLES Edited [facility] [address] [facility] [address] [place] [address] * (ABNORMAL) CBC WITH DIFFERENTIAL (11/09/2007 5:45 AM CDT) WBC 9.8 4.0 - 9.8 K/uL [facility] MCH 32.9(H) 27.2 - 32.6 pg [facility] MPV 11.3 9.3 - 12.4 fL [facility] HEMATOCRIT 49.5(H) 40.0 - 48.0 % [facility] RDW-STDEV 47.2 37.1 - 48.7 fL [facility] RBC 5.02 4.50 - 5.40 M/uL [facility] MCHC 33.3 31.5 - 35.5 % [facility] MCV 98.6 82.0 - 99.0 fL [facility] PLATELETS 172 140 - 350 K/uL [facility] HEMOGLOBIN 16.5 13.6 - 16.5 g/dL [facility] RDW 13.1 11.5 - 14.5 % [facility] LYMPHOCYTE ABSOLUTE 1.84 0.70 - 4.50 K/uL [facility] BASOPHILS 0 0 - 2 % [facility] BASOPHILS ABSOLUTE 0.03 0.00 - 0.20 K/uL [facility] MONOCYTES 12 3 - 13 % [facility] MONOCYTE ABSOLUTE 1.17 0.10 - 1.30 K/uL [facility] NEUTROPHILS 67 45 - 70 % [facility] NEUTROPHIL ABSOLUTE 6.50 1.90 - 7.00 K/uL [facility] EOSINOPHILS 2 0 - 7 % [facility] EOSINOPHIL ABSOLUTE 0.21 0.00 - 0.70 K/uL [facility] LYMPHOCYTES 19 16 - 45 % [facility] Blood specimen (specimen) 11/09/2007 5:45 AM CDT 11/09/2007 6:23 AM CDT Sofya HAMM HEMATOLOGY ORDERABLES Edited INTERFACE SYSTEM Refer to clinic/hospital department [facility] [address] [place] [address] * (ABNORMAL) URINALYSIS (11/09/2007 4:10 AM CDT) LEUKOCYTE ESTERASE UA Negative Negative [facility] RBC UA 1 0 - 3 /HPF [facility] SPECIFIC GRAVITY UA 1.044(H) 1.001 - 1.035 [facility] Comment: Results confirmed by 2nd methodology. BLOOD UA Negative Negative [facility] GLUCOSE UA 3+(A) Negative [facility] Comment: Verified by repeat analysis. COLOR UA Yellow [facility] NITRITE UA Negative Negative [facility] UROBILINOGEN UA 4(H) <=1 mg/dL [facility] Comment: Verified by repeat analysis. EPITHELIAL CELLS, URINE 0-2 /HPF [facility] PH UA 6.0 5.0 - 8.0 [facility] KETONES UA 1+(A) Negative [facility] WBC UA 1 0 - 3 /HPF [facility] CLARITY UA Clear Clear [facility] PROTEIN UA Trace(A) Negative [facility] BILIRUBIN UA Negative Negative [facility] 11/09/2007 4:10 AM CDT 11/09/2007 4:36 AM CDT us James Hopkins MD URINE ORDERABLES Final Result Performing Organization Address [facility] Co de Phone Number [facility] [address] [place] [address] * URINALYSIS WITH REFLEX CULTURE (11/09/2007 4:10 AM CDT) URINE CULTURE ORDER Not indicated [facility] Comment: Criteria for a reflex culture [...] URINE ORDERABLES Final Result Performing Organization Address [facility] Co de Phone Number [facility] [address] [place] [address] * (ABNORMAL) POC GLUCOSE (11/08/2007 8:21 PM CDT) GLUCOSE POC 142(H) 65 - 99 mg/dL [facility] Venous blood specimen (specimen) 11/08/2007 8:21 PM CDT 11/08/2007 8:21 PM CDT Jesusita Roland MD POINT OF CARE TESTING Final Result Performing Organization Address [facility] Co de Phone Number [facility] [address] [place] [address] * (ABNORMAL) POC GLUCOSE (11/08/2007 4:56 PM CDT) GLUCOSE POC 100(H) 65 - 99 mg/dL [facility] Venous blood specimen (specimen) 11/08/2007 4:56 PM CDT 11/08/2007 4:56 PM CDT us Jesusita Roland MD POINT OF CARE TESTING Final Result Performing Organization Address City/[facility]/ZIP Co de Phone Number [facility] [address] [place] [address] * (ABNORMAL) POC GLUCOSE (11/08/2007 11:39 AM CDT) GLUCOSE POC 112(H) 65 - 99 mg/dL [facility] Venous blood specimen (specimen) 11/08/2007 11:39 AM CDT 11/08/2007 11:39 AM CDT us Jesusita Roland MD POINT OF CARE TESTING Final Result Performing Organization Address [facility]/ZIP Co de Phone Number [facility] [address] [place] [address] * POC GLUCOSE (11/08/2007 7:22 AM CDT) GLUCOSE POC 93 65 - 99 mg/dL [facility] Venous blood specimen (specimen) 11/08/2007 7:22 AM CDT 11/08/2007 7:22 AM CDT us Jesusita Roland MD POINT OF CARE TESTING Final Result Performing Organization Address City/[facility]/ZIP Co de Phone Number [facility] [address] [address] * (ABNORMAL) POC GLUCOSE (11/07/2007 8:42 PM CDT) COMMENT, GLU POC Notified RN [facility] GLUCOSE POC 149(H) 65 - 99 mg/dL [facility] Venous blood specimen (specimen) 11/07/2007 8:42 PM CDT 11/07/2007 8:42 PM CDT us Jesusita Roland MD POINT OF CARE TESTING Final Result Performing Organization Address City/[facility]/ZIP Co de Phone Number [facility] [address] [place] [address] * (ABNORMAL) POC GLUCOSE (11/07/2007 4:44 PM CDT) GLUCOSE POC 137(H) 65 - 99 mg/dL [facility] Venous blood specimen (specimen) 11/07/2007 4:44 PM CDT 11/07/2007 4:44 PM CDT us Jesusita Roland MD POINT OF CARE TESTING Final Result Performing Organization Address [facility] Co de Phone Number [facility] [address] [place] [address] * POC GLUCOSE (11/07/2007 11:38 AM CDT) GLUCOSE POC 84 65 - 99 mg/dL [facility] Venous blood specimen (specimen) 11/07/2007 11:38 AM CDT 11/07/2007 11:38 AM CDT us Jesusita Roland MD POINT OF CARE TESTING Final Result Performing Organization Address City/[facility] Co de Phone Number [facility] [address] [place] [address] * DIGOXIN LEVEL (11/07/2007 9:18 AM CDT) DIGOXIN LEVEL 1.4 0.8 - 2.0 ng/mL [facility] Comment:Digoxin Toxic Level = >2.0 ng/mL Blood specimen (specimen) 11/07/2007 9:18 AM CDT 11/07/2007 9:36 AM CDT Domingo Teran MD CHEMISTRY ORDERABLES Final R esult Performing Organization Address City/[facility] Co de Phone Number [facility] [address] [place] [place] [address] * (ABNORMAL) PROTIME-INR (11/07/2007 9:18 AM CDT) PROTIME 15.4(H) 12.7 - 15.1 Seconds [facility] INR 1.2(H) 0.9 - 1.1 [facility] Comment: INR Therapeutic Range: Adult: 2.0 - 3.0 for pulmonary embolism or prophylaxis against venous thrombosis or systemic embolization. 2.0 - 3.0 for patients with tissue heart valves. 2.5 - 3.5 for patients with mechanical heart valves or post NE. Pediatric (12 years and under): 1.5 - [...] HEMATOLOGY ORDERABLES Final Result Performing Organization Address City/[facility]/ZIP Co de Phone Number [facility] [address] [place] [address] * (ABNORMAL) BASIC METABOLIC PANEL (11/07/2007 9:18 AM CDT) CREATININE 1.00 0.67 - 1.17 mg/dL [facility] POTASSIUM 4.1 3.5 - 4.9 mmol/L [facility] BUN 15 6 - 20 mg/dL [facility] CHLORIDE 102 96 - 108 mmol/L [facility] GLUCOSE 186(H) 65 - 99 mg/dL [facility] SODIUM 139 135 - 145 mmol/L [facility] CALCIUM 9.1 8.4 - 10.2 mg/dL [facility] CO2 27 22 - 30 mmol/L [facility] GFR, >60 >=60 mL/min/1. 7 sq meter [facility] GFR >60 >=60 mL/min/1. 7 sq meter [facility] Comment: Estimated GFR rate interpretative information for both Americans and non- Americans is available on the [facility] Intran[facility] at: [email or web address] Select: Lab Policies and Procedures Select: Reference Ranges - GFR Blood specimen (specimen) 11/07/2007 9:18 AM CDT 11/07/2007 9:36 AM CDT Domingo Teran MD CHEMISTRY ORDERABLES Edited [facility] [address] [place] [address] * POC GLUCOSE (11/07/2007 7:22 AM CDT) GLUCOSE POC 87 65 - 99 mg/dL [facility] Venous blood specimen (specimen) 11/07/2007 7:22 AM CDT 11/07/2007 7:22 AM CDT Jesusita Roland MD POINT OF CARE TESTING Final Result Performing Organization Address City/[facility]/ZIP Co de Phone Number [facility] [address] [place] [address] * POC GLUCOSE (11/06/2007 8:53 PM CDT) GLUCOSE POC 93 65 - 99 mg/dL [facility] Venous blood specimen (specimen) 11/06/2007 8:53 PM CDT 11/06/2007 8:53 PM CDT Jesusita Roland MD POINT OF CARE TESTING Final Result [facility] [address] [place] [address] * POC GLUCOSE (11/06/2007 4:42 PM CDT) GLUCOSE POC 95 65 - 99 mg/dL [facility] Venous blood specimen (specimen) 11/06/2007 4:42 PM CDT 11/06/2007 4:42 PM CDT Jesusita Roland MD POINT OF CARE TESTING Final Result Performing Organization Address City/[facility]/ZIP Co de Phone Number [facility] [address] [place] [address] * POC GLUCOSE (11/06/2007 11:32 AM CDT) GLUCOSE POC 96 65 - 99 mg/dL [facility] Venous blood specimen (specimen) 11/06/2007 11:32 AM CDT 11/06/2007 11:32 AM CDT us Jesusita Roland MD POINT OF CARE TESTING Final Result Performing Organization Address City/[facility]/ZIP Co de Phone Number [facility] [address] [place] [address] * (ABNORMAL) POC GLUCOSE (11/06/2007 7:27 AM CDT) GLUCOSE POC 108(H) 65 - 99 mg/dL [facility] Venous blood specimen (specimen) 11/06/2007 7:27 AM CDT 11/06/2007 7:27 AM CDT Jesusita Roland MD POINT OF CARE TESTING Final Result Performing Organization Address City/[facility]/ZIP Co de Phone Number [facility] [address] [place] [address] * (ABNORMAL) POC GLUCOSE (11/05/2007 8:02 PM CDT) GLUCOSE POC 160(H) 65 - 99 mg/dL [facility] Venous blood specimen (specimen) 11/05/2007 8:02 PM CDT 11/05/2007 8:02 PM CDT Jesusita Roland MD POINT OF CARE TESTING Final Result Performing Organization Address City/[facility]/ZIP Co de Phone Number [facility] [address] [place] [address] * POC GLUCOSE (11/05/2007 4:54 PM CDT) [facility] Signature GLUCOSE POC 91 65 - 99 mg/dL [facility] Venous blood specimen (specimen) 11/05/2007 4:54 PM CDT 11/05/2007 4:54 PM CDT Jesusita Roland MD POINT OF CARE TESTING Final Result Performing Organization Address City/[facility]/ZIP Co de Phone Number [facility] [address] [place] [address] * (ABNORMAL) HEMOGLOBIN A1C (11/05/2007 3:37 PM CDT) GLUCOSE, MEAN BLOOD 161 mg/dL [facility] HEMOGLOBIN A1C 6.7(H) 4.1 - 6.1 % of Hgb [facility] Blood specimen (specimen) 11/05/2007 3:37 PM CDT 11/05/2007 3:49 PM CDT Kandis Vásquez MD CHEMISTRY ORDERABLES Final Result Performing Organization Address [facility] Co de Phone Number [facility] [address] [place] [address] * (ABNORMAL) POC GLUCOSE (11/05/2007 11:30 AM CDT) GLUCOSE POC 62(L) 65 - 99 mg/dL [facility] Venous blood specimen (specimen) 11/05/2007 11:30 AM CDT 11/05/2007 11:30 AM CDT Jesusita Roland MD POINT OF CARE TESTING Final Result Performing Organization Address [facility] Co de Phone Number [facility] [address] [place] [address] * POC GLUCOSE (11/05/2007 7:41 AM CDT) GLUCOSE POC 88 65 - 99 mg/dL [facility] Venous blood specimen (specimen) 11/05/2007 7:41 AM CDT 11/05/2007 7:41 AM CDT Jesusita Roland MD POINT OF CARE TESTING Final Result Performing Organization Address City/[facility] Co de Phone Number [facility] [address] [place] [address] * (ABNORMAL) BASIC METABOLIC PANEL (11/05/2007 4:30 AM CDT) BUN 19 6 - 20 mg/dL [facility] CHLORIDE 101 96 - 108 mmol/L [facility] GLUCOSE 104(H) 65 - 99 mg/dL [facility] SODIUM 138 135 - 145 mmol/L [facility] CALCIUM 8.4 8.4 - 10.2 mg/dL [facility] CO2 26 22 - 30 mmol/L [facility] CREATININE 1.04 0.67 - 1.17 mg/dL [facility] POTASSIUM 4.0 3.5 - 4.9 mmol/L [facility] GFR, >60 >=60 mL/min/1. 7 sq meter [facility] GFR >60 >=60 mL/min/1. 7 sq meter [facility] Comment: Estimated GFR rate interpretative information for both Americans and non- Americans is available on the [facility] Intranet at: [email or web address] Select: Lab Policies and Procedures Select: Reference Ranges - GFR Blood specimen (specimen) 11/05/2007 4:30 AM CDT 11/05/2007 5:22 AM CDT us Jesusita Roland MD CHEMISTRY ORDERABLES Edited [facility] [address] [place] [address] * CLOSTRIDIUM DIFFICILE TOXIN (11/04/2007 11:20 PM [...] GLUCOSE POC 111(H) 65 - 99 mg/dL [facility] Venous blood specimen (specimen) 11/04/2007 8:02 PM CDT 11/04/2007 8:02 PM CDT Jesusita Roland MD POINT OF CARE TESTING Final Result Performing Organization Address City/[facility]/ZIP Co de Phone Number [facility] [address] [place] [address] * (ABNORMAL) POC GLUCOSE (11/04/2007 4:07 PM CDT) GLUCOSE POC 138(H) 65 - 99 mg/dL [facility] Venous blood specimen (specimen) 11/04/2007 4:07 PM CDT 11/04/2007 4:07 PM CDT Jesusita Roland MD POINT OF CARE TESTING Final Result Performing Organization Address [facility]/ZIP Co de Phone Number [facility] [address] [place] [address] * POC GLUCOSE (11/04/2007 11:35 AM CDT) GLUCOSE POC 92 65 - 99 mg/dL [facility] Venous blood specimen (specimen) 11/04/2007 11:35 AM CDT 11/04/2007 11:35 AM CDT Jesusita Roland MD POINT OF CARE TESTING Final Result Performing Organization Address City/[facility]/ZIP Co de Phone Number [facility] [address] [place] [address] * (ABNORMAL) POC GLUCOSE (11/04/2007 7:15 AM CDT) GLUCOSE POC 146(H) 65 - 99 mg/dL [facility] Venous blood specimen (specimen) 11/04/2007 7:15 AM CDT 11/04/2007 7:15 AM CDT us Jesusita Roland MD POINT OF CARE TESTING Final Result Performing Organization Address City/[facility]/ZIP Co de Phone Number [facility] [address] [place] [address] * (ABNORMAL) BASIC METABOLIC PANEL (11/04/2007 4:35 AM CDT) CO2 25 22 - 30 mmol/L [facility] CREATININE 1.04 0.67 - 1.17 mg/dL [facility] POTASSIUM 3.9 3.5 - 4.9 mmol/L [facility] BUN 20 6 - 20 mg/dL [facility] CHLORIDE 102 96 - 108 mmol/L [facility] GLUCOSE 90 65 - 99 mg/dL [facility] SODIUM 136 135 - 145 mmol/L [facility] CALCIUM 8.3(L) 8.4 - 10.2 mg/dL [facility] GFR, >60 >=60 mL/min/1. 7 sq meter [facility] GFR >60 >=60 mL/min/1. 7 sq meter [facility] Comment: Estimated GFR rate interpretative information for both Americans and non- Americans is available on the [facility] at: [email or web address] Select: Lab Policies and Procedures Select: Reference Ranges - GFR Blood specimen (specimen) 11/04/2007 4:35 AM CDT 11/04/2007 5:37 AM CDT us Jesusita Roland MD CHEMISTRY ORDERABLES Edited [facility] [address] [place] [address] * (ABNORMAL) PROTIME-INR (11/04/2007 4:35 AM CDT) Pathologist [facility] [place] INR 1.5(H) 0.9 - 1.1 [facility] Comment: INR Therapeutic Range: Adult: 2.0 - 3.0 for pulmonary embolism or prophylaxis against venous thrombosis or systemic embolization. 2.0 - 3.0 for patients with tissue heart valves. 2.5 - 3.5 for patients with mechanical heart valves or post NE. Pediatric (12 years and under): 1.5 - 3.0 Although the target range in children is not well established, INR values of 1.5 - 3.0 are recommended for most patients. Higher values have been used in children with prosthetic cardiac valves and hereditary clotting disorders. (<3 days) therapeutic ranges have not been established. PROTIME 18.1(H) 12.7 - 15.1 Seconds [facility] Blood specimen (specimen) 11/04/2007 4:35 AM CDT 11/04/2007 5:37 AM CDT us Jesusita Roland MD HEMATOLOGY ORDERABLES Final Result Performing Organization Address City/State/[facility] Co de Phone Number [facility] [address] [place] [address] * (ABNORMAL) CBC WITH DIFFERENTIAL (11/04/2007 4:35 AM CDT) [facility] HEMATOCRIT 45.9 40.0 - 48.0 % [facility] RDW-STDEV 51.2(H) 37.1 - 48.7 fL [facility] RBC 4.57 4.50 - 5.40 M/uL [facility] MCHC 32.7 31.5 - 35.5 % [facility] MCV 100.4(H) 82.0 - 99.0 fL [facility] PLATELETS 162 140 - 350 K/uL [facility] HEMOGLOBIN 15.0 13.6 - 16.5 g/dL [facility] RDW 14.1 11.5 - 14.5 % [facility] WBC 7.2 4.0 - 9.8 K/uL [facility] MCH 32.8(H) 27.2 - 32.6 pg [facility] MPV 11.4 9.3 - 12.4 fL [facility] BASOPHILS ABSOLUTE 0.07 0.00 - 0.20 K/uL [facility] MONOCYTES 16(H) 3 - 13 % [facility] MONOCYTE ABSOLUTE 1.15 0.10 - 1.30 K/uL [facility] NEUTROPHILS 64 45 - 70 % [facility] NEUTROPHIL ABSOLUTE 4.55 1.90 - 7.00 K/uL [facility] EOSINOPHILS 1 0 - 7 % [facility] EOSINOPHIL ABSOLUTE 0.07 0.00 - 0.70 K/uL [facility] LYMPHOCYTES 18 16 - 45 % [facility] LYMPHOCYTE ABSOLUTE 1.31 0.70 - 4.50 K/uL [facility] BASOPHILS 1 0 - 2 % [facility] Blood specimen (specimen) 11/04/2007 4:35 AM CDT 11/04/2007 5:37 AM CDT us Jesusita Roland MD HEMATOLOGY ORDERABLES Edited INTERFACE SYSTEM Refer to clinic/hospital department [facility] [address] [address] * SPUTUM CULTURE WITH GRAM STAIN (11/03/2007 10:27 PM CDT) GRAM STAIN Non diagnostic pattern Many WBC's seen INTERFACE SYSTEM FINAL REPORT Heavy growth normal upper respiratory leticia INTERFACE SYSTEM 11/03/2007 10:2 7 PM CDT 11/03/2007 11:00 PM CDT Kandis Vásquez MD MICROBIOLOGY - GENERAL ORD ERABLES Final Result Performing Organization Address City/[facility] Co de Phone Number INTERFACE SYSTEM Refer [...] is less sensitive for viral detection. Result [facility] Kandis Vásquez MD MICROBIOLOGY - GENERAL ORD ERABLES Final Result Performing Organization Address [facility] Co de Phone Number INTERFACE SYSTEM Refer to clinic/hospital department * POC GLUCOSE (11/03/2007 8:18 PM CDT) Pathologist [facility] GLUCOSE POC 98 65 - 99 mg/dL [facility] Venous blood specimen (specimen) 11/03/2007 8:18 PM CDT 11/03/2007 8:18 PM CDT Jesusita Roland MD POINT OF CARE TESTING Final Result Performing Organization Address City/[facility] Co de Phone Number [facility] [address] [place] [address] * ECHOCARDIOGRAM COMPLETE (11/03/2007 4:41 PM CDT) Narrative INTERFACE SYSTEM - 11/03/2007 4:41 PM CDT [address] [address] [place] [address] [email or web address] Transthoracic Echocardiogram Patient: Patricia Dunham Study ID: Adult Echo Gender: M : 1945 Age: 62 years Race: 1 Room: Bed: Height: 70 in ( 178 cm ) Study Date: November 03, 2007 Patient status: Inpatient Weight: 217.58 lb ( 98.9 kg ) Access. #: [id number] POC: Ordering: Milton Consulting: Grant Attending MD: [...] 16:24:28 Procedure Note Provider, Historical - 11/03/2007 [address] [address] [place] [id number]: [email or web address] Transthoracic Echocardiogram Patient: Patricia Dunham Study ID: Adult Echo Gender: M : 1945 Age: 62 years Race: 1 Room: Bed: Height: 70 in ( 178 cm ) Study Date: November 03, 2007 Patient status: Inpatient Weight: 217.58 lb ( 98.9 kg ) Access. #: [id number] POC: Ordering: Milton Consulting: Grant Attending MD: [...] US ORDERABLES Final Result Performing Organization Address City/[facility] Co de Phone Number INTERFACE SYSTEM Refer to clinic/hospital department * (ABNORMAL) POC GLUCOSE (11/03/2007 4:33 PM CDT) GLUCOSE POC 149(H) 65 - 99 mg/dL [facility] Venous blood specimen (specimen) 11/03/2007 4:33 PM CDT 11/03/2007 4:33 PM CDT Jesusita Roland MD POINT OF CARE TESTING Final Result Performing Organization Address [facility] de Phone Number [facility] [address] [place] [address] * US DOPPLER ARTERIAL LEGS BILATERAL (11/03/2007 3:33 PM CDT) Anatomical Region Laterality Modality Lower Extremity Other Narrative 11/03/2007 3:33 PM CDT Please type in written order in [place] [address] [email or web address] [facility] Peripheral Venous Study Patient: Patricia Dunham Study ID: BLOOD FLOW STUDY Gender: M : 1945 Age: 62 years Race: 1 Room: Bed: Height: Study Date: November 03, 2007 Patient status: Inpatient Weight: Access. #: [id number] POC: Booth Manager: Sandy Ordering: Milton Consulting: Grant Attending MD: [...] in written order in Special Instructions field. [address] [address] [place] [address] [email or web address] [facility] Peripheral Venous Study Patient: Patricia Dunham Study ID: BLOOD FLOW STUDY Gender: M : 1945 Age: 62 years Race: 1 Room: Bed: Height: Study Date: November 03, 2007 Patient status: Inpatient Weight: Access. #: [id number] POC: Booth Manager: Sandy Ordering: Milton Consulting: Grant Attending MD: [...] (ABNORMAL) POC GLUCOSE (11/03/2007 11:36 AM CDT) [facility] GLUCOSE POC 136(H) 65 - 99 mg/dL [facility] Venous blood specimen (specimen) 11/03/2007 11:36 AM CDT 11/03/2007 11:36 AM CDT us Jesusita Roland MD POINT OF CARE TESTING Final Result Performing Organization Address City/[facility]/ZIP Co de Phone Number [facility] [address] [place] [address] * TROPONIN (W/REFLEX CKMB/CK) (11/03/2007 11:32 AM CDT) [facility] TROPONIN T <0.01 <=0.03 ng/mL [facility] TROPONIN T INTERP Negative [facility] Blood specimen (specimen) 11/03/2007 11:32 AM CDT 11/03/2007 11:35 AM CDT us Jesusita Roland MD CHEMISTRY ORDERABLES Edited Performing Organization Address City/[facility]/ZIP Co de Phone Number [facility] [address] [place] [address] * BLOOD CULTURE (11/03/2007 9:52 AM CDT) [facility] PRELIMINARY REPORT No growth to date. Culture in progress INTERFACE SYSTEM FINAL REPORT No growth 5 days INTERFACE SYSTEM Blood specimen (specimen) 11/03/2007 9:52 AM CDT 11/03/2007 12:07 PM CDT us Jesusita Roland MD MICROBIOLOGY - GENERAL ORDER JOSEPH Final Result Performing Organization Address City/[facility] de Phone Number INTERFACE [...] ORDER JOSEPH Final Result Performing Organization Address [facility] de Phone Number INTERFACE SYSTEM Refer to clinic/hospital department * (ABNORMAL) POC GLUCOSE (11/03/2007 7:07 AM CDT) GLUCOSE POC 129(H) 65 - 99 mg/dL [facility] Venous blood specimen (specimen) 11/03/2007 7:07 AM CDT 11/03/2007 7:07 AM CDT us Jesusita Roland MD POINT OF CARE TESTING Final Result Performing Organization Address [facility] de Phone Number [facility] [address] [place] [address] * (ABNORMAL) BASIC METABOLIC PANEL (11/03/2007 2:55 AM CDT) GLUCOSE 116(H) 65 - 99 mg/dL [facility] SODIUM 137 135 - 145 mmol/L [facility] CALCIUM 8.8 8.4 - 10.2 mg/dL [facility] CO2 27 22 - 30 mmol/L [facility] CREATININE 1.23(H) 0.67 - 1.17 mg/dL [facility] POTASSIUM 4.3 3.5 - 4.9 mmol/L [facility] BUN 17 6 - 20 mg/dL [facility] CHLORIDE 100 96 - 108 mmol/L [facility] GFR, >60 >=60 mL/min/1. 7 sq meter [facility] GFR 60 >=60 mL/min/1. 7 sq meter [facility] Comment: Estimated GFR rate interpretative information for both Americans and non- Americans is available on the [facility] Intranet at: [email or web address] Select: Lab Policies and Procedures Select: Reference Ranges - GFR Blood specimen (specimen) 11/03/2007 2:55 AM CDT 11/03/2007 2:56 AM CDT Jesusita Roland MD CHEMISTRY ORDERABLES Edited [facility] [address] [place] [address] * TROPONIN (W/REFLEX CKMB/CK) (11/03/2007 2:55 AM CDT) TROPONIN T <0.01 <=0.03 ng/mL [facility] TROPONIN T INTERP Negative [facility] Blood specimen (specimen) 11/03/2007 2:55 AM CDT 11/03/2007 2:56 AM CDT Jesusita Roland MD CHEMISTRY ORDERABLES Edited [facility] [address] [address] * (ABNORMAL) POC GLUCOSE (11/02/2007 8:25 PM CDT) GLUCOSE POC 103(H) 65 - 99 mg/dL [facility] Venous blood specimen (specimen) 11/02/2007 8:25 PM CDT 11/02/2007 8:25 PM CDT us Jesusita Roland MD POINT OF CARE TESTING Final Result [facility] [address] [place] [address] * XR CHEST PA AND LATERAL (11/02/2007 7:43 PM CDT) Anatomical Region Laterality Modality Chest Other 11/02/2007 7:43 PM CDT Narrative 11/03/2007 9:04 AM CDT [facility] [address] [place], [place] [address] Admit Date: 11/02/2007 PATRICIA DUNHAM Sex: M Admit Prov: BERTHAJESUSITA LOPEZ Date: 1945 Primary Care Prov: CARMINEBeeMERYL CMRN: [id number] Room: [address] [place] [address] SSN: [id number] IMAGING SERVICES Ordering Prov: N/A Accession Number: [id number] Interpretation CHEST 2 VIEWS 11/02/2007 History: Congestive [...] AMK Procedure Note Provider, Historical - 11/03/2007 [facility] [address] [place], [place] [address] Admit Date: 11/02/2007 PATRICIA DUNHAM Sex: M Admit Prov: JESUSITA ROLAND Date: 1945 Primary Care Prov: MERYL FRIEDMAN CMRN: [id number] Room: [address] [place] [address] SSN: [id number] IMAGING SERVICES Ordering Prov: N/A Interpretation CHEST [...] PM CDT) TROPONIN T <0.01 <=0.03 ng/mL [facility] TROPONIN T INTERP Negative [facility] Blood specimen (specimen) 11/02/2007 7:05 PM CDT 11/02/2007 7:13 PM CDT us Jesusita Roland MD CHEMISTRY ORDERABLES Edited [facility] [address] [facility] [place] [address] * TSH (11/02/2007 7:05 PM CDT) TSH 1.59 0.27 - 4.20 uU/mL [facility] Blood specimen (specimen) 11/02/2007 7:05 PM CDT 11/02/2007 7:13 PM CDT Jesusita Roland MD CHEMISTRY ORDERABLES Final R esult Performing Organization Address [facility] Co de Phone Number [facility] [address] [place] [address] * (ABNORMAL) HEPATIC FUNCTION PANEL (11/02/2007 7:05 PM CDT) BILIRUBIN TOTAL 1.0 0.2 - 1.0 mg/dL [facility] ALT 72(H) 0 - 41 U/L [facility] ALKALINE PHOSPHATASE 58 40 - 129 U/L [facility] TOTAL PROTEIN 7.0 6.3 - 8.6 g/dL [facility] BILIRUBIN DIRECT 0.4(H) 0.0 - 0.3 mg/dL [facility] AST 38 12 - 38 U/L [facility] ALBUMIN 4.2 3.4 - 4.8 g/dL [facility] Blood specimen (specimen) 11/02/2007 7:05 PM CDT 11/02/2007 7:13 PM CDT Jesusita Roland MD CHEMISTRY ORDERABLES Final R esult Performing Organization Address [facility] Co de Phone Number [facility] [address] [place] [address] * (ABNORMAL) PROTIME-INR (11/02/2007 7:05 PM CDT) INR 1.3(H) 0.9 - 1.1 [facility] Comment: INR Therapeutic Range: Adult: 2.0 - 3.0 for pulmonary embolism or prophylaxis against venous thrombosis or systemic embolization. 2.0 - 3.0 for patients with tissue heart valves. 2.5 - 3.5 for patients with mechanical heart valves or post NE. Pediatric (12 years and under): 1.5 - 3.0 Although the target range in children is not well established, INR values of 1.5 - 3.0 are recommended for most patients. Higher values have been used in children with prosthetic cardiac valves and hereditary clotting disorders. (<3 days) therapeutic ranges have not been established. PROTIME 16.2(H) 12.7 - 15.1 Seconds [facility] Blood specimen (specimen) 11/02/2007 7:05 PM CDT 11/02/2007 7:13 PM CDT us Jesusita Roland MD HEMATOLOGY ORDERABLES Final Result [facility] [address] [address] * (ABNORMAL) CBC WITH DIFFERENTIAL (11/02/2007 7:05 PM CDT) MCV 101.4(H) 82.0 - 99.0 fL [facility] PLATELETS 169 140 - 350 K/uL [facility] HEMOGLOBIN 16.6(H) 13.6 - 16.5 g/dL [facility] RDW 14.1 11.5 - 14.5 % [facility] WBC 9.3 4.0 - 9.8 K/uL [facility] MCH 33.3(H) 27.2 - 32.6 pg [facility] MPV 11.7 9.3 - 12.4 fL [facility] HEMATOCRIT 50.6(H) 40.0 - 48.0 % [facility] RDW-STDEV 52.0(H) 37.1 - 48.7 fL [facility] RBC 4.99 4.50 - 5.40 M/uL [facility] MCHC 32.8 31.5 - 35.5 % [facility] EOSINOPHILS 0 0 - 7 % [facility] EOSINOPHIL ABSOLUTE 0.02 0.00 - 0.70 K/uL [facility] LYMPHOCYTES 13(L) 16 - 45 % [facility] LYMPHOCYTE ABSOLUTE 1.18 0.70 - 4.50 K/uL [facility] BASOPHILS 1 0 - 2 % [facility] BASOPHILS ABSOLUTE 0.05 0.00 - 0.20 K/uL [facility] MONOCYTES 15(H) 3 - 13 % [facility] MONOCYTE ABSOLUTE 1.43(H) 0.10 - 1.30 K/uL [facility] NEUTROPHILS 71(H) 45 - 70 % [facility] NEUTROPHIL ABSOLUTE 6.66 1.90 - 7.00 K/uL [facility] Blood specimen (specimen) 11/02/2007 7:05 PM CDT 11/02/2007 7:13 PM CDT us Jesusita Roland MD HEMATOLOGY ORDERABLES Edited INTERFACE SYSTEM Refer to clinic/hospital department [facility] [address] [place] [address] * BASIC METABOLIC PANEL (11/02/2007 7:05 PM CDT) BUN 15 6 - 20 mg/dL [facility] CHLORIDE 102 96 - 108 mmol/L [facility] GLUCOSE 92 65 - 99 mg/dL [facility] SODIUM 138 135 - 145 mmol/L [facility] CALCIUM 9.2 8.4 - 10.2 mg/dL [facility] CO2 25 22 - 30 mmol/L [facility] CREATININE 1.10 0.67 - 1.17 mg/dL [facility] POTASSIUM 4.5 3.5 - 4.9 mmol/L [facility] GFR, >60 >=60 mL/min/1.7 sq meter [facility] GFR >60 >=60 mL/min/1.7 sq meter [facility] Comment: Estimated GFR rate interpretative information for both Americans and non- Americans is available on the [facility] Intranet at: [email or web address] Select: Lab Policies and Procedures Select: Reference Ranges - GFR Blood specimen (specimen) 11/02/2007 7:05 PM CDT 11/02/2007 7:13 PM CDT Jesusita Roland MD CHEMISTRY ORDERABLES Edited Performing Organization Address City/[facility]/ZIP Co de Phone Number [facility] [address] [place] [address] * LIPID PANEL (11/02/2007 7:05 PM CDT) CHOL/HDL RATIO 2.8 2.0 - 5.0 [facility] TRIGLYCERIDE 59 10 - 149 mg/dL [facility] HDL 40 40 - 59 mg/dL [facility] CHOLESTEROL 110 100 - 199 mg/dL [facility] LDL CALCULATED 58 <=99 mg/dL [facility] LIPID PANEL COMMENT See Below [facility] Comment: The adult ATP and pediatric NCEP classifications for lipids are available on the [facility] Intranet at: [email or web address] Select: Lab Policies and Procedures,Current Select: Lipid Panel Interpretation Blood specimen (specimen) 11/02/2007 7:05 PM CDT 11/02/2007 7:13 PM CDT us Jesusita Roland MD CHEMISTRY ORDERABLES Edited [facility] [address] [place] [place] [address] documented in this encounter Visit Diagnoses Diagnosis Congestive heart failure, unspecified (CMS/HCC) Congestive heart failure, unspecified documented in this encounter Care Teams Grain Trimmer Relationship Specialty Start Date End Date Meryl Friedman MD PCP - General 12/10/07 documented as of this encounter
--- NOTE | 2025-02-12 16:55 | ED_ITS ---
HPI - General Adult General Chief complaint: Fall Stated complaint: fall History of Present Illness HPI narrative: 79-year-old male presents to the emergency department for evaluation after having a ground level fall. Patient states he tripped in his home and injured his chest wall. Patient states he did strike his head but denies any loss consciousness. Patient states he has been having more frequent falls. Patient reports he was too weak to get off of the floor today. Patient has had recent admission related to sepsis secondary to a cat bite. Patient is no longer taking antibiotics. Patient does live at home on his own. Related Data Home Medications ?Medication ?Instructions ?Recorded ?Confirmed ?Last Taken ?Type cinnamon bark 500 mg capsule 500 mg PO HS 09/07/19 02/09/25 02/09/20 History (Cinnamon) mecobalamin (vitamin B12) 1,000 1,000 mcg PO DAILY 04/22/24 02/09/25 Unknown History mcg chewable tablet Allergies Allergy/AdvReac Type Severity Reaction Status Date / Time No Known Allergies Allergy Verified 10/13/24 14:03 Review of Systems 2 Review of Systems: All systems reviewed & are unremarkable except as noted in HPI and below [facility] Past Medical History Medical History A-fib ASHD (arteriosclerotic heart disease) Benign essential hypertension COPD (chronic obstructive pulmonary disease) CVA (cerebral vascular accident) (~03/2024) 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, insulin dependent Elevated homocysteine Hearing loss Hx of colonic polyps Hyperlipidemia Right kidney stone Tobacco abuse Vitamin D deficiency Surgical History Surgical History H/O aortic valve replacement Family History Family History Father Family history of malignant neoplasm Other Family history of cardiovascular disease Family history of pancreatic cancer Social History Social History Social History: Code status: Full code (per EMR) Surrogate decision maker: Russell (son) Smoking packs per day: 1 Smoking cigarettes per day: 20.0 Years smoked: 60 Smoking pack-years: 60.00 Smoking status: Current every day smoker Tobacco type: cigarettes Second hand tobacco smoke exposure: Yes Alcohol intake: never Substance use: never Substance use type: does not use Do You Feel Safe in your Home?: Yes Lack of Transportation: No Lack of Food: Never True Current Housing: I Have Housing Concerned About Future Housing: No Difficulty Paying Gas/Electric Bills: No Difficulty Paying for Meds: No Currently Unemployed: No Education: High School Diploma/GED Difficulty w/ Childcare or Family Care: No Living arrangements: with family Additional living arrangements comments: The patient's grandson lives with him. Patient raised 2 sons. 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 EYES: PERRLA/EOMI, conjunctivae clear. NOSE: Normal no drainage EARS:TMS clear with good light reflex. THROAT: Pharynx clear, no exudate. NECK: Supple. No adenopathy, no masses. RESPIRATORY: Airway patent, respirations nonlabored. Clear to auscultation bilaterally, no rales, rhonchi, wheezing. CARDIOVASCULAR: Regular rate and rhythm without murmurs rubs or gallops. ABDOMINAL: Soft, nontender, nondistended, normal bowel sounds MUSCULOSKELETAL: Moves all extremities. Strength/ROM intact, No edema, No calf tenderness. NEURO: Alert. Cranial nerves II through XII intact. Good gait. Good coordination SKIN: Bruising a very stages on arms and head. Erythema on bilateral thighs it does have appearance of sunburn but family states that the patient has had no exposure to sun. Course Vital Signs Vital signs: Vital Signs Temperature 97.8 F 02/12/25 16:34 Pulse Rate 84 02/12/25 16:34 Respiratory Rate 20 02/12/25 16:34 Blood Pressure 134/69 02/12/25 16:34 Pulse Oximetry 100 02/12/25 16:34 Oxygen Delivery Room Air 02/12/25 16:34 Temperature 98.6 F 02/12/25 18:47 Pulse Rate 108 H 02/12/25 19:02 Respiratory Rate 17 02/12/25 18:47 Blood Pressure 112/62 02/12/25 19:02 Pulse Oximetry 91 02/12/25 18:47 Oxygen Delivery Room Air 02/12/25 16:34 Medical Decision Making MDM Narrative Medical decision making narrative: 79-year-old male presents emergency department for evaluation for head injury and increased generalized weakness. Patient had a ground level fall was unable to go the ground. Patient was complaining of head neck and back pain. No acute abnormalities on the CT cervical spine CT thoracic and CT lumbar spine. Patient had no acute abnormalities on his CT brain. Chest x-ray showed no acute cardiopulmonary mallet. Patient is afebrile but does have a elevated leukocytosis of 11.3 and hemoglobin of 11.4. Patient has an INR 1.3, no acute abnormalities on the patient's CMP. UA is pending. Patient stated he did feel too weak to be discharged to home. Erythema on the bilateral thighs does appear to be sunburn versus cellulitis. Son states that this is not possibly some burning. When asked if the patient was outside and only has diaper the patient stated he was and then stated that he was joking and had not been in the sun and only his diaper. Patient was started on Rocephin for potential cellulitis. UA is pending. Case was discussed with hospitalist patient was accepted for admission. Vital Signs Vital Signs: Vital Signs Temperature 97.8 F 02/12/25 16:34 Pulse Rate 84 02/12/25 16:34 Respiratory Rate 20 02/12/25 16:34 Blood Pressure 134/69 02/12/25 16:34 Pulse Oximetry 100 02/12/25 16:34 Oxygen Delivery Room Air 02/12/25 16:34 Temperature 98.6 F 02/12/25 18:47 Pulse Rate 108 H 02/12/25 19:02 Respiratory Rate 17 02/12/25 18:47 Blood Pressure 112/62 02/12/25 19:02 Pulse Oximetry 91 02/12/25 18:47 Oxygen Delivery Room Air 02/12/25 16:34 Lab Data 02/12/25 16:53 02/12/25 16:53 Labs: Lab Results 02/12/25 02/12/25 02/12/25 Range/Units 16:53 16:54 19:33 WBC 11.3 H (4.5-10.0) K/mm3 RBC 3.54 L (4.6-6.20) M/mm3 Hgb 11.4 L (14.0-18.0) g/dL Hct 35.3 L (42.0-52.0) % MCV 99.7 (80-100) fl MCH 32.2 (26-34) pg MCHC 32.3 (32-36) g/dl RDW 13.4 (11.5-14.5) % Plt Count 198 (150-375) k/mm3 MPV 10.3 (7.4-10.4) fl Immature Gran % (Auto) 0.4 (0-0.5) % Neut % (Auto) 81.3 H (45.5-73.1) % Lymph % (Auto) 12.3 L (18.3-44.2) % [place] % (Auto) 5.2 (2.6-8.5) % Eos % (Auto) 0.7 (0-4.4) % Baso % (Auto) 0.1 L (0.2-1.2) % Lymph # (Auto) 1.39 (0.9-3.2) K/mm3 [place] # (Auto) 0.6 (0.1-0.6) K/mm3 Eos # (Auto) 0.1 (0-0.3) K/mm3 Baso # (Auto) 0.0 (0.0-0.1) K/mm3 Abs Immat Gran (auto) 0.05 H (0.00-0.031) K/mm3 Absolute Neuts (auto) 9.2 H (1.3-6.7) K/mm3 Absolute Nucleated RBC 0.000 (0.0-0.012) K/mm3 Nucleated RBC % 0.0 (0.0-0.2) % PT 16.4 H (11.1-14.7) Seconds INR 1.3 APTT 31.2 (22.3-36.8) Seconds Sodium 138 (137-145) mmol/L Potassium 3.8 (3.4-5.0) mmol/L Chloride 103 (98-107) mmol/L Carbon Dioxide 33 H (22-30) mmol/L Anion Gap 2 L (4-12) mmol/L BUN 10 D (9-20) mg/dL Creatinine 0.74 (0.7-1.3) mg/dL Estim Creat Clear Calc 60 ml/min Estimated GFR > 60 (59 - ) Glucose 128 H (65-110) mg/dL Calcium 8.6 (8.4-10.2) mg/dL Total Bilirubin 0.8 (0.2-1.3) mg/dL AST 24 (17-59) U/L ALT 17 (6-50) U/L Alkaline Phosphatase 103 (38-126) U/L Total Creatine Kinase Pending Total Protein 6.6 (6.3-8.2) g/dL Albumin 2.8 L (3.5-5.1) g/dL Discharge Plan Discharge Clinical Impression: Generalized weakness, Adult failure to thrive, Falls frequently, Cellulitis, Head injury, Orthostatic hypotension Patient Disposition: Still a Patient Condition: Stable Patient Language: Maori Prescriptions: No Action (DME) blood-glucose meter [Blood Glucose Monitoring] Kit See Rx Instructions .Route Qty: 1 0RF Rx Instructions: As directed (DME) Adult Incontinence Pads Ht 5'9 wt 145 See Rx Instructions .Route .MEDSUPPLY Qty: 60 6RF Rx Instructions: As directed insulin glargine [Lantus Solostar U-100 Insulin] 100 unit/mL (3 mL) insulin pen 20 unit subcut BID Qty: 100 0RF furosemide 20 mg tablet 10 mg PO DAILY Qty: 30 0RF sennosides [Senokot] 8.6 mg Tablet 8.6 mg PO BID Qty: 30 0RF polyethylene glycol 3350 [Miralax] 17 gram Powder In Packet 17 g PO BID Qty: 30 0RF amoxicillin-pot clavulanate 875-125 mg tablet 1 tablet PO Q8H Qty: 19 0RF cinnamon bark [Cinnamon] 500 mg capsule 500 mg PO HS mecobalamin (vitamin B12) 1,000 mcg tablet,chewable 1,000 mcg PO DAILY metformin 1,000 mg tablet See Rx Instructions .ROUTE .COMPLEX Qty: 100 2RF Dose Instruction: TAKE 1 TABLET BY MOUTH DAILY Rx Instructions: TAKE 1 TABLET BY MOUTH DAILY lisinopril 20 mg tablet See Rx Instructions .ROUTE .COMPLEX Qty: 100 2RF Dose Instruction: TAKE 1 TABLET BY MOUTH DAILY Rx Instructions: TAKE 1 TABLET BY MOUTH DAILY potassium chloride 10 mEq capsule, extended release See Rx Instructions .ROUTE .COMPLEX Qty: 100 2RF Dose Instruction: TAKE 1 CAPSULE BY MOUTH DAILY Rx Instructions: TAKE 1 CAPSULE BY MOUTH DAILY Eliquis 5 mg tablet See Rx Instructions .ROUTE .COMPLEX Qty: 120 5RF Dose Instruction: TAKE 1 TABLET BY MOUTH TWICE DAILY Rx Instructions: TAKE 1 TABLET BY MOUTH TWICE DAILY (DME) pen needle, diabetic 31 gauge x 5/16 needle See Rx Instructions .ROUTE .COMPLEX Qty: 200 0RF Dose Instruction: USE 2 PEN NEEDLES DAILY WITH LEVEMIR PEN Rx Instructions: USE 2 PEN NEEDLES DAILY WITH LEVEMIR PEN (DME) OneTouch Ultra Test Strip See Rx Instructions .ROUTE .COMPLEX Qty: 200 2RF Dose Instruction: USE TO TEST BLOOD SUGARS TWICE DAILY Rx Instructions: USE TO TEST BLOOD SUGARS TWICE DAILY dapagliflozin propanediol [Farxiga] 5 mg tablet See Rx Instructions .ROUTE .COMPLEX Qty: 100 1RF Dose Instruction: TAKE 1 TABLET BY MOUTH AT BEDTIME Rx Instructions: TAKE 1 TABLET BY MOUTH AT BEDTIME niacin 500 mg tablet extended release 24 hr See Rx Instructions .ROUTE .COMPLEX Qty: 100 2RF Dose Instruction: TAKE 1 TABLET BY MOUTH AT BEDTIME Rx Instructions: TAKE 1 TABLET BY MOUTH AT BEDTIME metoprolol tartrate 25 mg tablet See Rx Instructions .ROUTE .COMPLEX Qty: 200 2RF Dose Instruction: TAKE 1 TABLET BY MOUTH TWICE DAILY Rx Instructions: TAKE 1 TABLET BY MOUTH TWICE DAILY atorvastatin 20 mg tablet 20 mg PO HS Qty: 90 1RF donepezil 10 mg tablet See Rx Instructions .ROUTE .COMPLEX Qty: 90 3RF Dose Instruction: TAKE 1 TABLET BY MOUTH DAILY AT BEDTIME Rx Instructions: TAKE 1 TABLET BY MOUTH DAILY AT BEDTIME memantine 14 mg capsule,sprinkle,ER 24hr See Rx Instructions .ROUTE .COMPLEX Qty: 90 3RF Dose Instruction: TAKE 1 CAPSULE BY MOUTH DAILY Rx Instructions: TAKE 1 CAPSULE BY MOUTH DAILY folic acid 1 mg tablet 1 mg PO HS Qty: 90 1RF omega 7-thz-siy-fish oil 300-1,000 mg Capsule 1 cap PO BID Qty: 60 0RF Follow-up/Referrals: Dimitry Kamara MD [Primary Care Provider] -
--- NOTE | 2025-02-12 17:01 | PC.NURSE ---
Per family, pt has had 4 falls this week. Son reports similar symptoms previously when pt was septic from a cat bite in December. Pt has otherwise been acting per baseline.
[2025-02-12 17:04] LABS: Hematocrit 35.3 % (42.0-52.0); Hemoglobin 11.4 g/dL (14.0-18.0); Immature Granulocyte Percent A 0.4 % (0-0.5); Lymphocytes Absolute Auto 1.39 K/mm3 (0.9-3.2); Mean Corpuscular HGB Conc 32.3 g/dl (32-36); Mean Corpuscular Hemoglobin 32.2 pg (26-34); Mean Corpuscular Volume 99.7 fl (80-100); Nucleated Red Blood Cells Absolute Auto 0.000 K/mm3 (0.0-0.012); Nucleated Red Blood Cells Perc 0.0 % (0.0-0.2); Platelet Count Result 198 k/mm3 (150-375); Red Blood Count 3.54 M/mm3 (4.6-6.20); White Blood Count 11.3 K/mm3 (4.5-10.0)
[2025-02-12 17:12] LABS: Alanine Aminotransferase 17 U/L (6-50); Albumin Level 2.8 g/dL (3.5-5.1); Alkaline Phosphatase 103 U/L (38-126); Anion Gap 2 mmol/L (4-12); Aspartate Amino Transferase 24 U/L (17-59); Bilirubin,Total 0.8 mg/dL (0.2-1.3); Blood Urea Nitrogen 10 mg/dL (9-20); Calcium 8.6 mg/dL (8.4-10.2); Carbon Dioxide 33 mmol/L (22-30); Chloride 103 mmol/L (98-107); Estimated CRCL calculation 60 ml/min; Estimated Glomerular Filt Rate > 60; Glucose 128 mg/dL (65-110); Potassium 3.8 mmol/L (3.4-5.0); Sodium 138 mmol/L (137-145); Total Protein 6.6 g/dL (6.3-8.2)
[2025-02-12 17:17] LABS: INR 1.3; Partial Thromboplastin Time 31.2 Seconds (22.3-36.8); Prothrombin Time 16.4 Seconds (11.1-14.7)
[2025-02-12] MEDS: LACTATED RINGERS 1,000 ML 999 ML IV CONT (19:28)
[2025-02-12] MEDS: ceFAZolin 1 GM in SODIUM CHLORIDE 0.9% IV 50 ML 100 ML IVPB (19:28)
[2025-02-12 20:39] LABS: Creatine Kinase 45 U/L (55-170)
--- NOTE | 2025-02-12 21:17 | ADMGEN ---
This patient, Moisés Yip, was admitted to Medical Room 246-01. Patient/family oriented to hospital policies and general routines including ID bracelet, bed and alarms, visiting hours, pain management, procedures, bathroom and other care routines, personal items, smoking policy, room service/diet, and visiting hours. Information on how to activate the Rapid Response Team has been discussed. Patient/Family are encouraged to report perceived risks to care and to ask questions if they do not understand what they are told or what they should do.
[2025-02-12] MEDS: LACTATED RINGERS 1,000 ML 125 ML IV CONT (21:58)
[2025-02-12] MEDS: NICOTINE (*PBKC) 21 MG PATCH 1 PATCH TRANSDERM (22:03)
--- NOTE | 2025-02-12 23:30 | PM.IMHP ---
H&P: HPI History of Present Illness Date/Time: 02/12/25 22:17 Chief Complaint: Fall Narrative: 79-year-old male with a past medical history of dementia, insulin-dependent diabetes mellitus, essential hypertension, CVA, paroxysmal AFib on Eliquis, and bioprosthetic aortic valve replacement and chronic hearing loss among other comorbidities who presented to the ER after being found on the floor after a fall. The patient had recently been hospitalized 01/17/2025 through 01/26/2025 due to sepsis. Initially thought to be due to pneumonia but later found to be due to bacteremia from a cat bite. The patient was discharged to acute rehab by sounds like he only just returned home a few days ago. The patient lives in his own home in his grandson lives with him. His grandson returned from work this morning and found the patient on the floor. The time of the patient's fall is unknown as patient is only alert oriented x2 at baseline. The patient tells me that he was at home and went to bend forward to grab something and fell. He denies hitting his head and has no evidence of head trauma. He reported that he was too weak to get up on his own. He denies passing out. Noncontrast CT of the head, C-spine and lumbar spine was performed in the ER was negative. Patient was noted to have erythema and warmth to bilateral upper thighs. He initially told the ER staff that he had been outside sitting in the sun. The patient's son stated that it was not possible that the patient had a sunburn because he had not been outside. When the patient's son said this the patient stated that he was joking and had not been out in the sun in only his diaper. However at the time of my evaluation the patient told me that he had been outside in the sun in just his diaper. He stated that as long as his neighbors are not around he does not see a problem with being outside. The patient's son is concerned about the patient's placement after discharge. The patient clearly cannot live on his own. The patient's grandson will be moving out of the patient's house in the near future. The family would like the patient placed in a supervised living situation. Review of Systems Review of Systems: Review of systems unreliable due to patient's history of dementia. [facility] Past Medical History Medical History CVA (cerebral vascular accident) (~03/2024) 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 Right kidney stone Hx of colonic polyps Tobacco abuse Elevated homocysteine COPD (chronic obstructive pulmonary disease) Vitamin D deficiency Hearing loss ASHD (arteriosclerotic heart disease) A-fib Hyperlipidemia Benign essential hypertension Diabetes mellitus type 2, insulin dependent Surgical History Surgical History H/O aortic valve replacement Family History Family History Father Family history of malignant neoplasm Other Family history of cardiovascular disease Family history of pancreatic cancer Social History Social History Social History: Code status: Full code (per EMR) Surrogate decision maker: Russell (son) Smoking packs per day: 1 Smoking cigarettes per day: 20.0 Years smoked: 60 Smoking pack-years: 60.00 Smoking status: Current every day smoker Tobacco type: cigarettes Second hand tobacco smoke exposure: No Alcohol intake: never Substance use: never Substance use type: does not use Do You Feel Safe in your Home?: Yes Lack of Transportation: No Lack of Food: Never True Current Housing: I Have Housing Concerned About Future Housing: No Difficulty Paying Gas/Electric Bills: No Difficulty Paying for Meds: No Currently Unemployed: No Education: High School Diploma/GED Difficulty w/ Childcare or Family Care: No Living arrangements: with family Additional living arrangements comments: The patient's grandson lives with him. Patient raised 2 sons. 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 Gender identity (if verbalized by the patient): Male Spiritual care concerns: No Meds Home Medications and Allergies Home Medications ?Medication ?Instructions ?Recorded ?Confirmed ?Type cinnamon bark 500 mg capsule 500 mg PO HS 09/07/19 02/12/25 History (Cinnamon) omega 7-xug-xqu-fish oil 300 1 cap PO BID #60 caps 04/10/24 02/12/25 Rx mg-1,000 mg capsule Adult Incontinence Pads #60 ea 04/18/24 02/12/25 Rx blood-glucose meter (Blood Glucose #1 ea 04/18/24 02/12/25 Rx Monitoring kit) mecobalamin (vitamin B12) 1,000 1,000 mcg PO DAILY 04/22/24 02/12/25 History mcg chewable tablet metformin 1,000 mg tablet See Rx Instructions .Route 08/04/24 02/12/25 Rx .COMPLEX #100 tabs lisinopril 20 mg tablet See Rx Instructions .Route 08/08/24 02/12/25 Rx .COMPLEX #100 tabs potassium chloride 10 mEq See Rx Instructions .Route 08/08/24 02/12/25 Rx capsule,extended release .COMPLEX #100 caps apixaban 5 mg tablet (Eliquis) See Rx Instructions .Route 10/17/24 02/12/25 Rx .COMPLEX #120 tabs pen needle, diabetic 31 gauge x #200 ea 11/07/24 02/12/25 Rx 5/16 blood sugar diagnostic (OneTouch #200 strips 11/21/24 02/12/25 Rx Ultra Test strips) dapagliflozin propanediol 5 mg See Rx Instructions .Route 12/16/24 02/12/25 Rx tablet (Farxiga) .COMPLEX #100 tabs niacin 500 mg tablet,extended See Rx Instructions .Route 12/18/24 02/12/25 Rx release 24 hr .COMPLEX #100 tabs metoprolol tartrate 25 mg tablet See Rx Instructions .Route 12/31/24 02/12/25 Rx .COMPLEX #200 tabs atorvastatin 20 mg tablet 20 mg PO HS #90 tabs 01/10/25 02/12/25 Rx donepezil 10 mg tablet See Rx Instructions .Route 01/29/25 02/12/25 Rx .COMPLEX #90 tabs memantine 14 mg capsule See Rx Instructions .Route 01/29/25 02/12/25 Rx sprinkle,extended release 24hr .COMPLEX #90 caps folic acid 1 mg tablet 1 mg PO HS #90 tabs 01/30/25 02/12/25 Rx furosemide 20 mg tablet 10 mg (1/2 x 20 mg) PO DAILY Edema 02/09/25 02/12/25 Rx #30 tabs insulin glargine 100 unit/mL (3 20 unit (0.2 mL) subcut BID #100 mL 02/09/25 02/12/25 Rx mL) subcutaneous pen (Lantus Solostar U-100 Insulin) Allergies Allergy/AdvReac Type Severity Reaction Status Date / Time No Known Allergies Allergy Verified 10/13/24 14:03 Vital Signs Vital Signs - 24 hr 02/12/25 16:34 02/12/25 18:38 02/12/25 18:47 Temperature 97.8 F 98.6 F Pulse Rate 84 83 91 Respiratory Rate 20 17 Blood Pressure 134/69 137/55 L 137/55 L Pulse Oximetry 100 91 Oxygen Delivery Room Air 02/12/25 19:01 02/12/25 19:02 02/12/25 19:02 Temperature Pulse Rate 82 92 108 H Respiratory Rate Blood Pressure 129/52 L 133/46 L 112/62 Pulse Oximetry Oxygen Delivery 02/12/25 20:51 02/12/25 21:40 Temperature 98.1 F 98.2 F Pulse Rate 89 80 Respiratory Rate 18 18 Blood Pressure 114/50 L 132/53 L Pulse Oximetry 100 97 Oxygen Delivery Exam Narrative: Weight 59.5 kg BMI 22.5 H&P: Results Labs Labs: Laboratory Tests 02/12/25 16:53 02/12/25 16:53 02/12/25 02/12/25 02/12/25 16:53 16:54 19:33 WBC 11.3 H RBC 3.54 L Hgb 11.4 L Hct 35.3 L MCV 99.7 MCH 32.2 MCHC 32.3 RDW 13.4 Plt Count 198 MPV 10.3 Immature Gran % (Auto) 0.4 Neut % (Auto) 81.3 H Lymph % (Auto) 12.3 L [place] % (Auto) 5.2 Eos % (Auto) 0.7 Baso % (Auto) 0.1 L Lymph # (Auto) 1.39 [place] # (Auto) 0.6 Eos # (Auto) 0.1 Baso # (Auto) 0.0 Abs Immat Gran (auto) 0.05 H Absolute Neuts (auto) 9.2 H Absolute Nucleated RBC 0.000 Nucleated RBC % 0.0 PT 16.4 H INR 1.3 APTT 31.2 Sodium 138 Potassium 3.8 Chloride 103 Carbon Dioxide 33 H Anion Gap 2 L BUN 10 D Creatinine 0.74 Estim Creat Clear Calc 60 Estimated GFR > 60 Glucose 128 H Calcium 8.6 Total Bilirubin 0.8 AST 24 ALT 17 Alkaline Phosphatase 103 Total Creatine Kinase 45 L Total Protein 6.6 Albumin 2.8 L Impressions Chest X-Ray 02/12/25 17:14 IMPRESSION: No acute cardiopulmonary process. Head CT 02/12/25 17:33 IMPRESSION: No acute intracranial process. Cervical Spine CT 02/12/25 17:51 IMPRESSION: No acute fracture or traumatic malalignment in the cervical spine. Severe degenerative changes in the cervical spine, with severe multilevel bilateral neural foraminal narrowing and severe central canal narrowing at C3-4. Thoracic/Lumbar Spine CT 02/12/25 17:57 IMPRESSION: No acute fracture or traumatic malalignment detected in the thoracic or lumbar spine Assessment and Plan Assessment and plan (1) Cellulitis: Qualifiers: Laterality: unspecified laterality Site of cellulitis: extremity Site of cellulitis of extremity: lower extremity Qualified Code(s): L03.119 - Cellulitis of unspecified part of limb Code(s): L03.90 - Cellulitis, unspecified Status: Acute Assessment and Plan: On exam I feel that cellulitis is extremely unlikely given the appearance of the erythema and that strict demarcation of the erythema that ends in a straight line or the patient's depends what overlap his skin. Both legs are equally red and erythematous. There is no streaking or associated lymphadenopathy of the area. The patient's legs are quite white in color otherwise and he is clearly not a stand on his legs as he has a on his other extremities. I have no doubt that the patient has been sitting in area of sun exposure whether be outside or inside the window very still getting UV exposure. I am going to stop antibiotics as I feel cellulitis is extremely unlikely. Will repeat CBC in a.m. and monitor for other signs of infection. (2) Orthostatic hypotension: Code(s): I95.1 - Orthostatic hypotension Status: Acute Assessment and Plan: Patient had evidence of orthostatic hypotension in the ER. He does wear Aldo hose on bilateral lower extremities that her actively cutting into his lower legs at the time of my evaluation. His mucous membranes were tacky new peers at least somewhat volume depleted. Patient did receive 1 L fluid bolus in the ER. Will continue lactated Ringer's 125 mL an hour for 1 L and then re-evaluate fluid status in a.m.. Will repeat electrolyte panel. The patient is incontinent of urine making measurement of input and output difficult. I would like to further evaluate patient's fluid status by obtaining a urinalysis and I placed an order several hours ago to obtain UA with straight catheterization but this is not been completed. Will request nursing staff again attempt to obtain urinalysis for further evaluation. (3) Head injury: Qualifiers: Encounter type: initial encounter Qualified Code(s): S09.90XA - Unspecified injury of head, initial encounter Code(s): S09.90XA - Unspecified injury of head, initial encounter Status: Acute Assessment and Plan: CT was negative for any acute intercranial process. Patient is extremely high risk for bleed and is on chronic anticoagulation with Eliquis. The patient has bled score is high and the risk and benefits of chronic anticoagulation need to be discussed with the patient's family prior to discharge (4) Falls frequently: Code(s): R29.6 - Repeated falls Status: Acute Assessment and Plan: CT was negative for any acute intercranial process. Patient is extremely high risk for bleed and is on chronic anticoagulation with Eliquis. The patient has bled score is high and the risk and benefits of chronic anticoagulation need to be discussed with the patient's family prior to discharge. Will request PT OT evaluation for placement recommendations. . (5) Adult failure to thrive: Code(s): R62.7 - Adult failure to thrive Status: Acute Assessment and Plan: Patient has low serum albumin. Although he was markedly hyperglycemic during his last hospitalization he is currently euglycemic and is on Lantus 20 units subQ q.12 hours. Will skip tonight's dose of Lantus given euglycemia and will decrease the patient's Lantus dosing to 10 units q.[address] patient on low-dose sliding scale insulin Accu-Cheks a.c. HS and hypoglycemia protocol. Patient would benefit from nutritional supplements given his low serum albumin. Thankfully is weight is stable compared to prior hospitalization. Care coordination consult. Plan Patient has been admitted as observation status. Quality VTE Prophylaxis VTE prophylaxis: pharmacologic ordered (Continue home Eliquis.) Hospitalist [facility] Advance Care Plan I have confirmed that the patient's Advanced Care Plan is present, code status is documented, or surrogate decision maker is listed in patient medical record.: Yes Medication Reconciliation I have utilized all available resources to obtain, update and review the patients current medications (includes all prescriptions, OTC, herbals, cannabis, and nutritional supplements).: Yes
[2025-02-13 04:16] VITALS: BP 133/52; PULSE 83; RESP 18; TEMP 36.9; O2SAT 97
[2025-02-13 04:54] LABS: Add Urine Microscopic? YES; Appearance Urine Turbid (Clear); Glucose Urine UA 2+ mg/dL (Negative); Leukocyte Esterase Ur 3+ LEU/UL (Negative); Need Manual Microscopic Reviewed; Nitrate Urine Negative (Negative); Non Pathogenic Casts 0-2; Specific Grav Ur 1.022 (1.001-1.035)
[2025-02-13 08:46] VITALS: PULSE 70
[2025-02-13] MEDS: NICOTINE (*PBKC) 21 MG PATCH 1 PATCH TRANSDERM (08:46)
[2025-02-13] MEDS: APIXABAN 5 MG TABLET PO ×2 (08:46→20:31)
[2025-02-13] MEDS: CYANOCOBALAMIN 1,000 MCG TABLET 1000 MCG PO (08:46)
[2025-02-13] MEDS: METOPROLOL TARTRATE 25 MG TABLET PO ×2 (08:46→20:31)
[2025-02-13] MEDS: OMEGA 3 POLYUNSAT FATTY ACIDS 1 GM CAP PO ×2 (08:47→17:19)
[2025-02-13] MEDS: INSULIN GLARGINE (*BKC) 100 UNITS/ML 10 UNITS SUB-Q (09:58)
--- NOTE | 2025-02-13 10:14 | WNDPHOTO ---
PHOTO ONLY - See Nursing Notes and/ or assessments for documentation.
[2025-02-13] MEDS: LOPERAMIDE HCL 2 MG CAPSULE 4 MG PO (11:11)
[2025-02-13 12:17] LABS: Toxigenic C. Diff NEGATIVE (NEGATIVE)
[2025-02-13 14:00] VITALS: BP 101/50; PULSE 80; RESP 16; TEMP 36.5; O2SAT 100
--- NOTE | 2025-02-13 18:53 | P.PNIM_ITS ---
Progress Note: A&P Assessment and Plan (1) Cellulitis: Qualifiers: Laterality: unspecified laterality Site of cellulitis: extremity Site of cellulitis of extremity: lower extremity Qualified Code(s): L03.119 - Cellulitis of unspecified part of limb Code(s): L03.90 - Cellulitis, unspecified Status: Acute Assessment and Plan: Unlikely cellulitis --Monitoring off antibiotics. Does have bilateral LE edema --CBC in a.m. and monitor for other signs of infection. (2) Orthostatic hypotension: Code(s): I95.1 - Orthostatic hypotension Status: Acute Assessment and Plan: Patient had evidence of orthostatic hypotension in the ER. --Aldo hose as able (3) Head injury: Qualifiers: Encounter type: initial encounter Qualified Code(s): S09.90XA - Unspecified injury of head, initial encounter Code(s): S09.90XA - Unspecified injury of head, initial encounter Status: Acute Assessment and Plan: CT was negative for any acute intracranial process. Patient is extremely high risk for bleed and is on chronic anticoagulation with Eliquis. The patient has bled score is high and the risk and benefits of chronic anticoagulation need to be discussed with the patient's family prior to discharge (4) Falls frequently: Code(s): R29.6 - Repeated falls Status: Acute Assessment and Plan: PT/OT . (5) Adult failure to thrive: Code(s): R62.7 - Adult failure to thrive Status: Acute Assessment and Plan: Follow weight (6) Diabetes mellitus: Code(s): E11.9 - Type 2 diabetes mellitus without complications Status: Acute Assessment and Plan: Fasting blood sugar 83 this morning, trending up during the day --Decrease lantus from 10 BID to daily & monitor overnight --Add lispro 2 TID with meals & SSI Plan Patient has been admitted as observation status. Time Spent With Patient Time: 58 minutes Subjective Date/time seen: 02/13/25 18:53 Interval history: VSS. Has Lower extremity edema Overall feeling ok, confused, thinks he's at home. Said he fell but is a poor historian Family planning for placement Review of Systems Review of Systems: Review of systems unreliable due to patient's history of dementia. Exam Narrative: Weight 59.5 kg BMI 22.5 General - Awake and alert. No acute distress Eyes - PERRLA, EOM intact ENT - No thrush, No erythema Neck - No noticeable or palpable swelling Lymph Nodes - No lymphadenopathy Cardiovascular - RRR no m/r/g, no JVD Lungs: Clear to auscultation, No wheezing, use of accessory muscles, no crackles Skin - Skin warm and dry, no wounds or rashes Abdomen - Normal bowel sounds, abdomen soft and nontender Extremities - No edema, cyanosis or clubbing Musculoskeletal - 5/5 strength, normal range of motion, no swollen or erythematous joints. Neurological ? Alert and oriented x 1, CN 2-12 grossly intact. Psych: Normal mood and affect Objective Data Vital Signs Vital Signs: Vital Signs - 24 hr 02/12/25 19:01 02/12/25 19:02 02/12/25 19:02 Temperature Pulse Rate 82 92 108 H Respiratory Rate Blood Pressure 129/52 L 133/46 L 112/62 Pulse Oximetry Oxygen Delivery 02/12/25 20:51 02/12/25 21:40 02/13/25 04:16 Temperature 98.1 F 98.2 F 98.4 F Pulse Rate 89 80 83 Respiratory Rate 18 18 18 Blood Pressure 114/50 L 132/53 L 133/52 L Pulse Oximetry 100 97 97 Oxygen Delivery 02/13/25 08:00 02/13/25 08:46 02/13/25 09:48 Temperature Pulse Rate 70 Respiratory Rate Blood Pressure Pulse Oximetry Oxygen Delivery Room Air Room Air 02/13/25 11:27 02/13/25 14:00 Temperature 97.7 F Pulse Rate 80 Respiratory Rate 16 Blood Pressure 101/50 L Pulse Oximetry 100 Oxygen Delivery Room Air Intake/Output Intake/Output: Intake & Output 02/10/25 02/11/25 02/12/25 02/13/25 23:59 23:59 23:59 23:59 Intake Total 1050 1336 Output Total 200 Balance 1050 1136 Meds/Results Medications: Active Medications Generic Name Dose Route Start Last Admin Trade Name Freq PRN Reason Stop Dose Admin Apixaban 5 mg 02/13/25 09:00 02/13/25 08:46 Apixaban 5 Mg Tablet PO 5 mg Q12HR JADYN Administration Atorvastatin Calcium 20 mg 02/13/25 21:00 Atorvastatin 20 Mg Tablet PO HS JADYN Cyanocobalamin 1,000 mcg 02/13/25 09:00 02/13/25 08:46 Cyanocobalamin 1,000 Mcg Tablet PO 1,000 mcg QAM JADYN Administration Dextrose 12.5 gm 02/13/25 00:41 Dextrose 50% 25 Gm/50 Ml Syringe IV PUSH PRN PRN Hypoglycemia Protocol Donepezil HCl 10 mg 02/13/25 21:00 Donepezil Hcl 10 Mg Tablet PO QHS [facility] Empagliflozin 10 mg 02/13/25 21:00 Empagliflozin 10 Mg [facility] Fish Oil 1 gm 02/13/25 09:00 02/13/25 17:19 [place] 3 Polyunsat Fatty Acids 1 Gm Cap PO 1 gm BID JADYN Administration Folic Acid 1 mg 02/13/25 21:00 Folic Acid 1 Mg Tablet PO [facility] Glucagon 1 mg 02/13/25 00:41 Glucagon For Inj 1 Mg Vial IM PRN PRN Hypoglycemia Protocol Glucose 15 gm 02/13/25 00:41 Glucose Oral Gel 15 Gm Of Glucse In 37.5 Gm Tube PO PRN PRN Hypoglycemia Protocol Dextrose 1,000 mls @ 100 mls/hr 02/13/25 00:41 Dextrose 5% 1,000 Ml IVPB PRN PRN Hypoglycemia Protocol Insulin Aspart 2 - 5 units 02/13/25 08:00 02/13/25 17:18 Insulin Aspart (*Bkc) 100 Units/Ml SUB-Q Not Given TIDWM [facility] Protocol Insulin Glargine 10 units 02/13/25 09:00 02/13/25 09:58 Insulin Glargine (*Bkc) 100 Units/Ml SUB-Q 10 units Q12HR JADYN Administration Metformin HCl 1,000 mg 02/13/25 08:00 02/13/25 08:46 Metformin Hcl 500 Mg Tablet PO 1,000 mg DAILY@0800 [facility] Administration Metoprolol Tartrate 25 mg 02/13/25 09:00 02/13/25 08:46 Metoprolol Tartrate 25 Mg Tablet PO 25 mg Q12HR [facility] Administration Nicotine 1 patch 02/12/25 21:00 02/13/25 08:46 Nicotine (*Pbkc) 21 Mg Patch TRANSDERM 1 patch DAILY JADYN Administration Radiology Results: ITS Impressions Chest X-Ray 02/12/25 17:14 IMPRESSION: No acute cardiopulmonary process. Head CT 02/12/25 17:33 IMPRESSION: No acute intracranial process. Cervical Spine CT 02/12/25 17:51 IMPRESSION: No acute fracture or traumatic malalignment in the cervical spine. Severe degenerative changes in the cervical spine, with severe multilevel bilateral neural foraminal narrowing and severe central canal narrowing at C3-4. Thoracic/Lumbar Spine CT 02/12/25 17:57 IMPRESSION: No acute fracture or traumatic malalignment detected in the thoracic or lumbar spine Labs Labs: Laboratory Results - last 24 hr 02/12/25 02/12/25 02/13/25 16:48 19:33 00:44 POC Capillary Glucose 103 Total Creatine Kinase 45 L Urine Color Yellow Urine Appearance Turbid H Urine pH 7.0 Ur Specific [place] 1.022 Urine Protein 2+ H Urine Glucose (UA) 2+ H Urine Ketones 1+ H Ur Blood (Man) 3+ H Urine Nitrate Negative Urine Bilirubin Negative Urine Urobilinogen 1.0 Add Ur Microanalysis Reviewed Leukocyte Esterase Rfl 3+ H Urine RBC 21-50 H Urine WBC >100 H Ur Squamous Epith Cells Occasional Urine Bacteria 1+ H Urine Casts 0-2 C. difficile (PCR) 02/13/25 02/13/25 02/13/25 07: 09:55 11:10 POC Capillary Glucose 83 133 H Total Creatine Kinase Urine Color Urine Appearance Urine pH Ur Specific [place] Urine Protein Urine Glucose (UA) Urine Ketones Ur Blood (Man) Urine Nitrate Urine Bilirubin Urine Urobilinogen Add Ur Microanalysis Leukocyte Esterase Rfl Urine RBC Urine WBC Ur Squamous Epith Cells Urine Bacteria Urine Casts C. difficile (PCR) Negative 02/13/25 02/13/25 11:29 16:24 POC Capillary Glucose 114 H 174 H Total Creatine Kinase Urine Color Urine Appearance Urine pH Ur Specific [place] Urine Protein Urine Glucose (UA) Urine Ketones Ur Blood (Man) Urine Nitrate Urine Bilirubin Urine Urobilinogen Add Ur Microanalysis Leukocyte Esterase Rfl Urine RBC Urine WBC Ur Squamous Epith Cells Urine Bacteria Urine Casts C. difficile (PCR) Quality VTE Prophylaxis VTE prophylaxis: pharmacologic ordered (Continue home Eliquis.) Hospitalist MIPS Advance Care Plan I have confirmed that the patient's Advanced Care Plan is present, code status is documented, or surrogate decision maker is listed in patient medical record.: Yes Medication Reconciliation I have utilized all available resources to obtain, update and review the patients current medications (includes all prescriptions, OTC, herbals, cannabis, and nutritional supplements).: Yes
[2025-02-13 19:45] VITALS: BP 126/49; PULSE 80; RESP 12; TEMP 36.5; O2SAT 100
[2025-02-13 20:31] VITALS: PULSE 80
[2025-02-13] MEDS: DONEPEZIL HCL 10 MG TABLET PO (20:31)
[2025-02-13] MEDS: ATORVASTATIN 20 MG TABLET PO (20:31)
[2025-02-13] MEDS: FOLIC ACID 1 MG TABLET PO (20:31)
[2025-02-13] MEDS: EMPAGLIFLOZIN 10 MG TABLET BY MOUTH (20:32)
[2025-02-14 04:16] VITALS: BP 120/48; PULSE 80; RESP 12; TEMP 36.6; O2SAT 97
[2025-02-14] MEDS: OMEGA 3 POLYUNSAT FATTY ACIDS 1 GM CAP PO ×2 (09:24→17:12)
[2025-02-14 09:25] VITALS: PULSE 80
[2025-02-14] MEDS: CYANOCOBALAMIN 1,000 MCG TABLET 1000 MCG PO (09:25)
[2025-02-14] MEDS: INSULIN GLARGINE (*BKC) 100 UNITS/ML 10 UNITS SUB-Q (09:25)
[2025-02-14] MEDS: APIXABAN 5 MG TABLET PO ×2 (09:25→20:30)
[2025-02-14] MEDS: NICOTINE (*PBKC) 21 MG PATCH 1 PATCH TRANSDERM (09:25)
[2025-02-14] MEDS: METOPROLOL TARTRATE 25 MG TABLET PO ×2 (09:25→20:30)
[2025-02-14] MEDS: INSULIN ASPART (*BKC) 100 UNITS/ML SUB-Q ×2 (09:26→12:42)
[2025-02-14 14:00] VITALS: BP 112/45; PULSE 96; RESP 18; TEMP 36.7; O2SAT 100
--- NOTE | 2025-02-14 15:46 | P.PNIM_ITS ---
Progress Note: A&P Assessment and Plan (1) Cellulitis: Qualifiers: Laterality: unspecified laterality Site of cellulitis: extremity Site of cellulitis of extremity: lower extremity Qualified Code(s): L03.119 - Cellulitis of unspecified part of limb Code(s): L03.90 - Cellulitis, unspecified Status: Acute Assessment and Plan: Unlikely cellulitis --Monitoring off antibiotics. Has bilateral LE edema --Pending labs (2) Orthostatic hypotension: Code(s): I95.1 - Orthostatic hypotension Status: Acute Assessment and Plan: Patient had evidence of orthostatic hypotension in the ER. --Aldo hose as able (3) Head injury: Qualifiers: Encounter type: initial encounter Qualified Code(s): S09.90XA - Unspecified injury of head, initial encounter Code(s): S09.90XA - Unspecified injury of head, initial encounter Status: Acute Assessment and Plan: CT was negative for any acute intracranial process. Patient is extremely high risk for bleed and is on chronic anticoagulation with Eliquis. The patient has bled score is high and the risk and benefits of chronic anticoagulation need to be discussed with the patient's family prior to discharge (4) Falls frequently: Code(s): R29.6 - Repeated falls Status: Acute Assessment and Plan: PT/OT . (5) Adult failure to thrive: Code(s): R62.7 - Adult failure to thrive Status: Acute Assessment and Plan: 59.5kg 02/12 Follow weight & intake. Appears cachectic (6) Diabetes mellitus: Code(s): E11.9 - Type 2 diabetes mellitus without complications Status: Acute Assessment and Plan: Fasting blood sugar 83 this morning, trending up during the day --Decrease lantus from 10 BID to daily & monitor overnight --Added lispro 2 TID with meals & SSI Plan Patient has been admitted as observation status. Time Spent With Patient Time: 56 minutes Subjective Date/time seen: 02/14/25 15:46 Interval history: VSS. Pitting bilateral lower extremity edema Reported nausea this morning but seems to be eating well per report Pending placement Review of Systems Review of Systems: Review of systems unreliable due to patient's history of dementia. Exam Narrative: Weight 59.5 kg BMI 22.5 General - Awake and alert. No acute distress Eyes - PERRLA, EOM intact ENT - No thrush, No erythema Neck - No noticeable or palpable swelling Lymph Nodes - No lymphadenopathy Cardiovascular - RRR no m/r/g, no JVD Lungs: Clear to auscultation, No wheezing, use of accessory muscles, no crackles Skin - Skin warm and dry, no wounds. LE edema bilaterally, R>L Abdomen - Normal bowel sounds, abdomen soft and nontender Extremities - No edema, cyanosis or clubbing Musculoskeletal - 5/5 strength, normal range of motion, no swollen or erythematous joints. Neurological ? Alert and oriented x 1, CN 2-12 grossly intact. Psych: Normal mood and affect Objective Data Vital Signs Vital Signs: Vital Signs - 24 hr 02/13/25 19:45 02/13/25 20:00 02/13/25 20:31 Temperature 97.7 F Pulse Rate 80 80 Respiratory Rate 12 Blood Pressure 126/49 L Pulse Oximetry 100 Oxygen Delivery Room Air 02/14/25 04:16 02/14/25 09:25 02/14/25 14:00 Temperature 97.8 F 98.0 F Pulse Rate 80 80 96 Respiratory Rate 12 18 Blood Pressure 120/48 L 112/45 L Pulse Oximetry 97 100 Oxygen Delivery Intake/Output Intake/Output: Intake & Output 02/11/25 02/12/25 02/13/25 02/14/25 23:59 23:59 23:59 23:59 Intake Total 1050 1336 898 Output Total 200 600 Balance 1050 1136 298 Meds/Results Medications: Active Medications Generic Name Dose Route Start Last Admin Trade Name Freq PRN Reason Stop Dose Admin Apixaban 5 mg 02/13/25 09:00 02/14/25 09:25 Apixaban 5 Mg Tablet PO 5 mg Q12HR JADYN Administration Atorvastatin Calcium 20 mg 02/13/25 21:00 02/13/25 20:31 Atorvastatin 20 Mg Tablet PO 20 mg HS JADYN Administration Cyanocobalamin 1,000 mcg 02/13/25 09:00 02/14/25 09:25 Cyanocobalamin 1,000 Mcg Tablet PO 1,000 mcg QAM JADYN Administration Dextrose 12.5 gm 02/13/25 00:41 Dextrose 50% 25 Gm/50 Ml Syringe IV PUSH PRN PRN Hypoglycemia Protocol Donepezil HCl 10 mg 02/13/25 21:00 02/13/25 20:31 Donepezil Hcl 10 Mg Tablet PO 10 mg QHS JADYN Administration Empagliflozin 10 mg 02/13/25 21:00 02/13/25 20:32 Empagliflozin 10 Mg Tablet BY MOUTH 10 mg QHS JADYN Administration Fish Oil 1 gm 02/13/25 09:00 02/14/25 09:24 [place] 3 Polyunsat Fatty Acids 1 Gm Cap PO 1 gm BID JADYN Administration Folic Acid 1 mg 02/13/25 21:00 02/13/25 20:31 Folic Acid 1 Mg Tablet PO 1 mg HS JADYN Administration Glucagon 1 mg 02/13/25 00:41 Glucagon For Inj 1 Mg Vial IM PRN PRN Hypoglycemia Protocol Glucose 15 gm 02/13/25 00:41 Glucose Oral Gel 15 Gm Of Glucse In 37.5 Gm Tube PO PRN PRN Hypoglycemia Protocol Dextrose 1,000 mls @ 100 mls/hr 02/13/25 00:41 Dextrose 5% 1,000 Ml IVPB PRN PRN Hypoglycemia Protocol Insulin Aspart 2 - 5 units 02/13/25 08:00 02/14/25 12:29 Insulin Aspart (*Bkc) 100 Units/Ml SUB-Q Not Given TIDWM [facility] Protocol Insulin Aspart 2 units 02/14/25 08:00 02/14/25 12:42 Insulin Aspart (*Bkc) 100 Units/Ml SUB-Q 2 units TIDWM JADYN Administration Insulin Glargine 10 units 02/14/25 09:00 02/14/25 09:25 Insulin Glargine (*Bkc) 100 Units/Ml SUB-Q 10 units DAILY JADYN Administration Metformin HCl 1,000 mg 02/13/25 08:00 02/14/25 09:24 Metformin Hcl 500 Mg Tablet PO 1,000 mg DAILY@0800 JADYN Administration Metoprolol Tartrate 25 mg 02/13/25 09:00 02/14/25 09:25 Metoprolol Tartrate 25 Mg Tablet PO 25 mg Q12HR JADYN Administration Nicotine 1 patch 02/12/25 21:00 02/14/25 09:25 Nicotine (*Pbkc) 21 Mg Patch TRANSDERM 1 patch DAILY JADYN Administration Radiology Results: ITS Impressions Chest X-Ray 02/12/25 17:14 IMPRESSION: No acute cardiopulmonary process. Head CT 02/12/25 17:33 IMPRESSION: No acute intracranial process. Cervical Spine CT 02/12/25 17:51 IMPRESSION: No acute fracture or traumatic malalignment in the cervical spine. Severe degenerative changes in the cervical spine, with severe multilevel bilateral neural foraminal narrowing and severe central canal narrowing at C3-4. Thoracic/Lumbar Spine CT 02/12/25 17:57 IMPRESSION: No acute fracture or traumatic malalignment detected in the thoracic or lumbar spine Labs Labs: Laboratory Results - last 24 hr 02/13/25 02/13/25 02/14/25 16:24 19:43 07:24 POC Capillary Glucose 174 H 178 H 83 02/14/25 11:24 POC Capillary Glucose 77 Quality VTE Prophylaxis VTE prophylaxis: pharmacologic ordered (Continue home Eliquis.) Hospitalist MIPS Advance Care Plan I have confirmed that the patient's Advanced Care Plan is present, code status is documented, or surrogate decision maker is listed in patient medical record.: Yes Medication Reconciliation I have utilized all available resources to obtain, update and review the patients current medications (includes all prescriptions, OTC, herbals, cannabis, and nutritional supplements).: Yes
[2025-02-14] MEDS: ONDANSETRON HCL ODT 4 MG TABLET PO (17:12)
[2025-02-14] MEDS: VANCOMYCIN 1,500 MG/NS 500 ML 1,500 MG/500 ML BAG 250 MG IVPB (17:51)
[2025-02-14 18:02] LABS: Hematocrit 35.0 % (42.0-52.0); Hemoglobin 10.9 g/dL (14.0-18.0); Immature Granulocyte Percent A 0.6 % (0-0.5); Lymphocytes Absolute Auto 1.41 K/mm3 (0.9-3.2); Mean Corpuscular HGB Conc 31.1 g/dl (32-36); Mean Corpuscular Hemoglobin 32.2 pg (26-34); Mean Corpuscular Volume 103.2 fl (80-100); Nucleated Red Blood Cells Absolute Auto 0.000 K/mm3 (0.0-0.012); Nucleated Red Blood Cells Perc 0.0 % (0.0-0.2); Platelet Count Result 202 k/mm3 (150-375); Red Blood Count 3.39 M/mm3 (4.6-6.20); White Blood Count 11.8 K/mm3 (4.5-10.0)
[2025-02-14 20:30] VITALS: PULSE 75
[2025-02-14] MEDS: ATORVASTATIN 20 MG TABLET PO (20:30)
[2025-02-14] MEDS: DONEPEZIL HCL 10 MG TABLET PO (20:30)
[2025-02-14] MEDS: EMPAGLIFLOZIN 10 MG TABLET BY MOUTH (20:30)
[2025-02-14] MEDS: FOLIC ACID 1 MG TABLET PO (20:30)
[2025-02-14 20:33] LABS: Alanine Aminotransferase 18 U/L (6-50); Albumin Level 2.9 g/dL (3.5-5.1); Alkaline Phosphatase 120 U/L (38-126); Anion Gap 6 mmol/L (4-12); Aspartate Amino Transferase 27 U/L (17-59); Bilirubin,Total 0.4 mg/dL (0.2-1.3); Blood Urea Nitrogen 16 mg/dL (9-20); CRP 2.7 mg/dL (<1.0); Calcium 8.5 mg/dL (8.4-10.2); Carbon Dioxide 30 mmol/L (22-30); Chloride 102 mmol/L (98-107); Estimated CRCL calculation 48 ml/min; Estimated Glomerular Filt Rate > 60; Glucose 153 mg/dL (65-110); Potassium 4.3 mmol/L (3.4-5.0); Sodium 138 mmol/L (137-145); Total Protein 6.8 g/dL (6.3-8.2)
[2025-02-14 20:38] LABS: NT Pro B Type Natriuretic Pept 3650 pg/mL (19.9-100)
[2025-02-14 21:18] VITALS: BP 124/48; PULSE 65; RESP 18; TEMP 36.6; O2SAT 100
[2025-02-15] VITALS (7 sets, daily range): BP systolic 113–157; BP diastolic 48–59; PULSE 71–89; RESP 16–18; TEMP 36.2–36.4; O2SAT 92–100
[2025-02-15 05:11] LABS: Estimated CRCL calculation 57 ml/min; Estimated Glomerular Filt Rate > 60
[2025-02-15] MEDS: ONDANSETRON HCL ODT 4 MG TABLET PO ×3 (05:56→17:32)
--- NOTE | 2025-02-15 07:40 | P.PNIM_ITS ---
Progress Note: A&P Assessment and Plan (1) Cellulitis: Qualifiers: Laterality: unspecified laterality Site of cellulitis: extremity Site of cellulitis of extremity: lower extremity Qualified Code(s): L03.119 - Cellulitis of unspecified part of limb Code(s): L03.90 - Cellulitis, unspecified Status: Acute Assessment and Plan: Unlikely cellulitis --Monitoring off antibiotics. Has bilateral LE edema. Dopplers last month were negative --Pending labs (2) Orthostatic hypotension: Code(s): I95.1 - Orthostatic hypotension Status: Acute Assessment and Plan: Patient had evidence of orthostatic hypotension in the ER. --Aldo hose as able (3) Head injury: Qualifiers: Encounter type: initial encounter Qualified Code(s): S09.90XA - Unspecified injury of head, initial encounter Code(s): S09.90XA - Unspecified injury of head, initial encounter Status: Acute Assessment and Plan: CT was negative for any acute intracranial process. Patient is extremely high risk for bleed and is on chronic anticoagulation with Eliquis. The patient has bled score is high and the risk and benefits of chronic anticoagulation need to be discussed with the patient's family prior to discharge (4) Falls frequently: Code(s): R29.6 - Repeated falls Status: Acute Assessment and Plan: PT/OT . (5) Adult failure to thrive: Code(s): R62.7 - Adult failure to thrive Status: Acute Assessment and Plan: 59.5kg 02/12 Follow weight & intake. Appears cachectic (6) Diabetes mellitus: Code(s): E11.9 - Type 2 diabetes mellitus without complications Status: Acute Assessment and Plan: Hypoglycemic, 52 despite reduced dose of insulin --Decreased lantus from 10 BID to daily, but still low this morning. Resume 8 units qAM tomorrow -- lispro 2 TID--HOLD, Continue SSI --Has been eating, could be related to infection (7) Positive blood culture: Code(s): R78.81 - Bacteremia Status: Acute Assessment and Plan: Blood cultures positive 1/2 GPC --Repeated blood cultures prior to vanc --Follow final cultures Plan Patient has been admitted as observation status. Time Spent With Patient Time: 59 minutes Subjective Date/time seen: 02/15/25 07:40 Interval history: Blood cultures positive but afebrile Slipped yesterday, nurse had to catch him, scraped his right forearm but otherwise no injuries. Skin is fragile. Had bleeding to left arm today, scratched it across the bed. Review of Systems Review of Systems: Review of systems unreliable due to patient's history of dementia. Exam Narrative: Weight 59.5 kg BMI 22.5 General - Awake and alert. No acute distress Eyes - PERRLA, EOM intact ENT - No thrush, No erythema Neck - No noticeable or palpable swelling Lymph Nodes - No lymphadenopathy Cardiovascular - RRR no m/r/g, no JVD Lungs: Clear to auscultation, No wheezing, use of accessory muscles, no crackles Skin - Skin warm and dry, multiple bruises, fragile skin, small wounds to bilateral forearms, superficial LE edema bilaterally, R>L Abdomen - Normal bowel sounds, abdomen soft and nontender Extremities - No edema, cyanosis or clubbing Musculoskeletal - 5/5 strength, normal range of motion, no swollen or erythematous joints. Neurological ? Alert and oriented x 1, CN 2-12 grossly intact. Psych: Normal mood and affect Objective Data Vital Signs Vital Signs: Vital Signs - 24 hr 02/14/25 08:00 02/14/25 09:25 02/14/25 14:00 Temperature 98.0 F Pulse Rate 80 96 Respiratory Rate 18 Blood Pressure 112/45 L Pulse Oximetry 100 Oxygen Delivery Room Air 02/14/25 20:25 02/14/25 20:30 02/14/25 21:18 Temperature 97.8 F Pulse Rate 75 65 Respiratory Rate 18 Blood Pressure 124/48 L Pulse Oximetry 100 Oxygen Delivery Room Air 02/15/25 04:18 Temperature 97.1 F L Pulse Rate 89 Respiratory Rate 18 Blood Pressure 113/48 L Pulse Oximetry 100 Oxygen Delivery Intake/Output Intake/Output: Intake & Output 02/12/25 02/13/25 02/14/25 02/15/25 23:59 23:59 23:59 23:59 Intake Total 1050 1336 2040 240 Output Total 039 167 0430 Balance 1050 1136 1190 -1260 Meds/Results Medications: Active Medications Generic Name Dose Route Start Last Admin Trade Name Freq PRN Reason Stop Dose Admin Apixaban 5 mg 02/13/25 09:00 02/14/25 20:30 Apixaban 5 Mg Tablet PO 5 mg Q12HR JADYN Administration Atorvastatin Calcium 20 mg 02/13/25 21:00 02/14/25 20:30 Atorvastatin 20 Mg Tablet PO 20 mg HS JADYN Administration Cyanocobalamin 1,000 mcg 02/13/25 09:00 02/14/25 09:25 Cyanocobalamin 1,000 Mcg Tablet PO 1,000 mcg QAM JADYN Administration Dextrose 12.5 gm 02/13/25 00:41 Dextrose 50% 25 Gm/50 Ml Syringe IV PUSH PRN PRN Hypoglycemia Protocol Donepezil HCl 10 mg 02/13/25 21:00 02/14/25 20:30 Donepezil Hcl 10 Mg Tablet PO 10 mg QHS JADYN Administration Empagliflozin 10 mg 02/16/25 09:00 Empagliflozin 10 Mg Tablet BY MOUTH DAILY [facility] Fish Oil 1 gm 02/13/25 09:00 02/14/25 17:12 [place] 3 Polyunsat Fatty Acids 1 Gm Cap PO 1 gm BID JADYN Administration Folic Acid 1 mg 02/13/25 21:00 02/14/25 20:30 Folic Acid 1 Mg Tablet PO 1 mg HS JADYN Administration Glucagon 1 mg 02/13/25 00:41 Glucagon For Inj 1 Mg Vial IM PRN PRN Hypoglycemia Protocol Glucose 15 gm 02/13/25 00:41 Glucose Oral Gel 15 Gm Of Glucse In 37.5 Gm Tube PO PRN PRN Hypoglycemia Protocol Dextrose 1,000 mls @ 100 mls/hr 02/13/25 00:41 Dextrose 5% 1,000 Ml IVPB PRN PRN Hypoglycemia Protocol Vancomycin HCl 1,000 mg/ 250 mls @ 250 mls/hr 02/15/25 18:00 Sodium Chloride IVPB Q24H [facility] Insulin Aspart 2 - 5 units 02/13/25 08:00 02/15/25 07:37 Insulin Aspart (*Bkc) 100 Units/Ml SUB-Q Not Given TIDWM [facility] Protocol Insulin Glargine 8 units 02/15/25 09:00 Insulin Glargine (*Bkc) 100 Units/Ml SUB-Q DAILY [facility] Metformin HCl 1,000 mg 02/13/25 08:00 02/14/25 09:24 Metformin Hcl 500 Mg Tablet PO 1,000 mg DAILY@0800 [facility] Administration Metoprolol Tartrate 25 mg 02/13/25 09:00 02/14/25 20:30 Metoprolol Tartrate 25 Mg Tablet PO 25 mg Q12HR JADYN Administration Nicotine 1 patch 02/12/25 21:00 02/14/25 09:25 Nicotine (*Pbkc) 21 Mg Patch TRANSDERM 1 patch DAILY JADYN Administration Ondansetron HCl 4 mg 02/14/25 16:30 02/15/25 05:56 Ondansetron Hcl Odt 4 Mg Tablet PO 4 mg TIDAC JADYN Administration Radiology Results: ITS Impressions Chest X-Ray 02/12/25 17:14 IMPRESSION: No acute cardiopulmonary process. Head CT 02/12/25 17:33 IMPRESSION: No acute intracranial process. Cervical Spine CT 02/12/25 17:51 IMPRESSION: No acute fracture or traumatic malalignment in the cervical spine. Severe degenerative changes in the cervical spine, with severe multilevel bilateral neural foraminal narrowing and severe central canal narrowing at C3-4. Thoracic/Lumbar Spine CT 02/12/25 17:57 IMPRESSION: No acute fracture or traumatic malalignment detected in the thoracic or lumbar spine Labs Labs: Laboratory Results - last 24 hr 02/14/25 02/14/25 02/14/25 11:24 16:19 17:27 WBC RBC Hgb Hct MCV MCH MCHC RDW Plt Count MPV Immature Gran % (Auto) Neut % (Auto) Lymph % (Auto) [place] % (Auto) Eos % (Auto) Baso % (Auto) Lymph # (Auto) [place] # (Auto) Eos # (Auto) Baso # (Auto) Abs Immat Gran (auto) Absolute Neuts (auto) Absolute Nucleated RBC Nucleated RBC % ESR Sodium Potassium Chloride Carbon Dioxide Anion Gap BUN Creatinine Estim Creat Clear Calc Estimated GFR Glucose POC Capillary Glucose 77 59 L* 96 Calcium Total Bilirubin AST ALT Alkaline Phosphatase C-Reactive Protein NT-Pro-B Natriuret Pep Total Protein Albumin 02/14/25 02/14/25 02/14/25 17:52 20:12 21:18 WBC 11.8 H RBC 3.39 L Hgb 10.9 L Hct 35.0 L MCV 103.2 H MCH 32.2 MCHC 31.1 L RDW 13.9 Plt Count 202 MPV 10.4 Immature Gran % (Auto) 0.6 H Neut % (Auto) 81.5 H Lymph % (Auto) 12.0 L [place] % (Auto) 4.2 Eos % (Auto) 1.4 Baso % (Auto) 0.3 Lymph # (Auto) 1.41 [place] # (Auto) 0.5 Eos # (Auto) 0.2 Baso # (Auto) 0.0 Abs Immat Gran (auto) 0.07 H Absolute Neuts (auto) 9.6 H Absolute Nucleated RBC 0.000 Nucleated RBC % 0.0 ESR 55 H Sodium 138 Potassium 4.3 Chloride 102 Carbon Dioxide 30 Anion Gap 6 BUN 16 Creatinine 0.92 Estim Creat Clear Calc 48 Estimated GFR > 60 Glucose 153 H POC Capillary Glucose 151 H Calcium 8.5 Total Bilirubin 0.4 AST 27 ALT 18 Alkaline Phosphatase 120 C-Reactive Protein 2.7 H NT-Pro-B Natriuret Pep 3650 H Total Protein 6.8 Albumin 2.9 L 02/15/25 02/15/25 04:25 07:29 WBC RBC Hgb Hct MCV MCH MCHC RDW Plt Count MPV Immature Gran % (Auto) Neut % (Auto) Lymph % (Auto) [place] % (Auto) Eos % (Auto) Baso % (Auto) Lymph # (Auto) [place] # (Auto) Eos # (Auto) Baso # (Auto) Abs Immat Gran (auto) Absolute Neuts (auto) Absolute Nucleated RBC Nucleated RBC % ESR Sodium Potassium Chloride Carbon Dioxide Anion Gap BUN Creatinine 0.76 Estim Creat Clear Calc 57 Estimated GFR > 60 Glucose POC Capillary Glucose 52 L* Calcium Total Bilirubin AST ALT Alkaline Phosphatase C-Reactive Protein NT-Pro-B Natriuret Pep Total Protein Albumin Quality VTE Prophylaxis VTE prophylaxis: pharmacologic ordered (Continue home Eliquis.) Hospitalist [facility] Advance Care Plan I have confirmed that the patient's Advanced Care Plan is present, code status is documented, or surrogate decision maker is listed in patient medical record.: Yes Medication Reconciliation I have utilized all available resources to obtain, update and review the patients current medications (includes all prescriptions, OTC, herbals, cannabis, and nutritional supplements).: Yes
[2025-02-15] MEDS: OMEGA 3 POLYUNSAT FATTY ACIDS 1 GM CAP PO ×2 (09:39→17:32)
[2025-02-15] MEDS: APIXABAN 5 MG TABLET PO ×2 (09:39→20:38)
[2025-02-15] MEDS: METOPROLOL TARTRATE 25 MG TABLET PO ×2 (09:39→20:38)
[2025-02-15] MEDS: CYANOCOBALAMIN 1,000 MCG TABLET 1000 MCG PO (09:39)
[2025-02-15] MEDS: NICOTINE (*PBKC) 21 MG PATCH 1 PATCH TRANSDERM (09:39)
[2025-02-15] MEDS: VANCOMYCIN HCL 1,000 MG in SODIUM CHLORIDE 0.9% IV 250 ML 250 MG IVPB (17:33)
[2025-02-15] MEDS: FOLIC ACID 1 MG TABLET PO (20:38)
[2025-02-15] MEDS: DONEPEZIL HCL 10 MG TABLET PO (20:38)
[2025-02-15] MEDS: ATORVASTATIN 20 MG TABLET PO (20:38)
[2025-02-16] VITALS (8 sets, daily range): BP systolic 121–130; BP diastolic 43–64; PULSE 68–102; RESP 18; TEMP 36.5–36.8; O2SAT 96–98
[2025-02-16 06:05] LABS: Estimated CRCL calculation 57 ml/min; Estimated Glomerular Filt Rate > 60
--- NOTE | 2025-02-16 07:59 | P.CDI_ITS ---
CDI Query Clarification Request 1) Please clarify if cellulitis has been ruled in or ruled out 2) Bacteremia has been documented, using the CDC definitions below, please clarify the appropriate diagnosis for your patients clinical presentation and severity of illness. * Septicemia: Systemic disease (sepsis) associated with positive blood cultures. * Sepsis: An infection-induced syndrome without organ dysfunction. * Severe Sepsis: Sepsis with associated acute organ dysfunction. * Septic Shock: Severe sepsis in which the cardiovascular system begins to fail, blood pressure drops, and vital organs are deprived of adequate blood supply. The medical chart reflects the following: Assessment and Plan (1) Cellulitis: Qualifiers: Laterality: unspecified laterality Site of cellulitis: extremity Site of cellulitis of extremity: lower extremity Qualified Code(s): L03.119 - Cellulitis of unspecified part of limb Code(s): L03.90 - Cellulitis, unspecified Status: Acute Assessment and Plan: Unlikely cellulitis --Monitoring off antibiotics. Has bilateral LE edema. Dopplers last month were negative (7) Positive blood culture: Code(s): R78.81 - Bacteremia Status: Acute Assessment and Plan: Blood cultures positive 1/2 GPC --Repeated blood cultures prior to vanc --Follow final cultures Blood Culture, Routine Preliminary 02/15/25-1509 LC *ABNORMAL* Gram positive cocci *ABNORMAL* Recovered from aerobic bottle only. Identification and sensitivities to follow. PRELIM RESULT CALLED AND READ BACK BY YUE Marroquin ON 02/14/2025 *ABNORMAL* Gram positive cocci *ABNORMAL* IV abx vancomycin, ancef has been discontinued WBC: 11.3, 11.8 <Una Medina RN - Last Filed: 02/16/25 08:06> Clarified Diagnosis Clarified Diagnosis: Bacteremia ruled out. Contaminant <Karine Cruz APRN - Last Filed: 02/20/25 23:48>
[2025-02-16] MEDS: OMEGA 3 POLYUNSAT FATTY ACIDS 1 GM CAP PO ×2 (09:24→17:11)
[2025-02-16] MEDS: METOPROLOL TARTRATE 25 MG TABLET PO ×2 (09:24→20:56)
[2025-02-16] MEDS: CYANOCOBALAMIN 1,000 MCG TABLET 1000 MCG PO (09:24)
[2025-02-16] MEDS: EMPAGLIFLOZIN 10 MG TABLET BY MOUTH (09:24)
[2025-02-16] MEDS: APIXABAN 5 MG TABLET PO ×2 (09:25→20:57)
[2025-02-16] MEDS: NICOTINE (*PBKC) 21 MG PATCH 1 PATCH TRANSDERM (09:28)
[2025-02-16] MEDS: INSULIN ASPART (*BKC) 100 UNITS/ML SUB-Q ×2 (12:20→17:10)
[2025-02-16] MEDS: ONDANSETRON HCL ODT 4 MG TABLET PO ×2 (12:20→17:11)
--- NOTE | 2025-02-16 17:57 | P.PNIM_ITS ---
Progress Note: A&P Assessment and Plan (1) Cellulitis: Qualifiers: Laterality: unspecified laterality Site of cellulitis: extremity Site of cellulitis of extremity: lower extremity Qualified Code(s): L03.119 - Cellulitis of unspecified part of limb Code(s): L03.90 - Cellulitis, unspecified Status: Acute Assessment and Plan: Unlikely cellulitis --Monitoring off antibiotics. Has bilateral LE edema. Dopplers last month were negative --Pending labs (2) Orthostatic hypotension: Code(s): I95.1 - Orthostatic hypotension Status: Acute Assessment and Plan: Patient had evidence of orthostatic hypotension in the ER. --Charlie hose as able (3) Head injury: Qualifiers: Encounter type: initial encounter Qualified Code(s): S09.90XA - Unspecified injury of head, initial encounter Code(s): S09.90XA - Unspecified injury of head, initial encounter Status: Acute Assessment and Plan: CT was negative for any acute intracranial process. Patient is extremely high risk for bleed and is on chronic anticoagulation with Eliquis. The patient has bled score is high and the risk and benefits of chronic anticoagulation need to be discussed with the patient's family prior to discharge (4) Falls frequently: Code(s): R29.6 - Repeated falls Status: Acute Assessment and Plan: PT/OT . (5) Adult failure to thrive: Code(s): R62.7 - Adult failure to thrive Status: Acute Assessment and Plan: 59.5kg 02/12 Follow weight & intake. Appears cachectic (6) Diabetes mellitus: Code(s): E11.9 - Type 2 diabetes mellitus without complications Status: Acute Assessment and Plan: Hypoglycemic, 52 despite reduced dose of insulin --Decreased lantus from 10 BID to daily, but still low this morning. Resume 8 units qAM tomorrow -- lispro 2 TID--HOLD, Continue SSI. Discharge with metformin --Has been eating well (7) Positive blood culture: Code(s): R78.81 - Bacteremia Status: Acute Assessment and Plan: Blood cultures positive 1/2 GPC, staph hominis --Repeated blood cultures prior to vanc --Follow final cultures Plan Patient has been admitted as observation status. Time Spent With Patient Time: 59 minutes Subjective Date/time seen: 02/16/25 11:15 Interval history: Blood cultures growing coag negative staph 1/2, likely conaminant. Stopping Vanc. Monitor overnight off antibiotics. Repeat blood cultures 02/14 still negative. Drawn prior to Vanc dose Otherwise feeling ok. No new changes. Likely discharge to rehab tomorrow Review of Systems Review of Systems: Review of systems unreliable due to patient's history of dementia. Exam Narrative: Weight 59.5 kg BMI 22.5 General - Awake and alert. No acute distress Eyes - PERRLA, EOM intact ENT - No thrush, No erythema Neck - No noticeable or palpable swelling Lymph Nodes - No lymphadenopathy Cardiovascular - RRR no m/r/g, no JVD Lungs: Clear to auscultation, No wheezing, use of accessory muscles, no crackles Skin - Skin warm and dry, multiple bruises, fragile skin, small wounds to bilateral forearms, superficial LE edema bilaterally, R>L improved with CHARLIE hose Abdomen - Normal bowel sounds, abdomen soft and nontender Extremities - No edema, cyanosis or clubbing Musculoskeletal - 5/5 strength, normal range of motion, no erythematous joints. Neurological ? Alert and oriented x 2, CN 2-12 grossly intact. Psych: Normal mood and affect Objective Data Vital Signs Vital Signs: Vital Signs - 24 hr 02/15/25 20:35 02/15/25 20:38 02/15/25 22:00 Temperature 97.3 F L Pulse Rate 77 78 77 Respiratory Rate 18 18 Blood Pressure 157/59 H Pulse Oximetry 100 100 Oxygen Delivery Room Air 02/16/25 06:00 02/16/25 08:30 02/16/25 09:20 Temperature 97.7 F Pulse Rate 86 102 H Respiratory Rate 18 Blood Pressure 125/62 Pulse Oximetry 96 98 Oxygen Delivery Room Air 02/16/25 09:22 02/16/25 09:24 02/16/25 14:00 Temperature 98.3 F Pulse Rate 102 H 68 Respiratory Rate 18 Blood Pressure 130/45 L 121/43 L Pulse Oximetry 97 Oxygen Delivery Intake/Output Intake/Output: Intake & Output 02/13/25 02/14/25 02/15/25 02/16/25 23:59 23:59 23:59 23:59 Intake Total 1336 2040 1610 1452 Output Total 995 267 0201 2800 Balance 1137 5091 -191 -8881 Meds/Results Medications: Active Medications Generic Name Dose Route Start Last Admin Trade Name Freq PRN Reason Stop Dose Admin Apixaban 5 mg 02/13/25 09:00 02/16/25 09:25 Apixaban 5 Mg Tablet PO 5 mg Q12HR JADYN Administration Atorvastatin Calcium 20 mg 02/13/25 21:00 02/15/25 20:38 Atorvastatin 20 Mg Tablet PO 20 mg HS JADYN Administration Cyanocobalamin 1,000 mcg 02/13/25 09:00 02/16/25 09:24 Cyanocobalamin 1,000 Mcg Tablet PO 1,000 mcg QAM JADYN Administration Dextrose 12.5 gm 02/13/25 00:41 Dextrose 50% 25 Gm/50 Ml Syringe IV PUSH PRN PRN Hypoglycemia Protocol Donepezil HCl 10 mg 02/13/25 21:00 02/15/25 20:38 Donepezil Hcl 10 Mg Tablet PO 10 mg QHS JADYN Administration Empagliflozin 10 mg 02/16/25 09:00 02/16/25 09:24 Empagliflozin 10 Mg Tablet BY MOUTH 10 mg DAILY JADYN Administration Fish Oil 1 gm 02/13/25 09:00 02/16/25 17:11 [place] 3 Polyunsat Fatty Acids 1 Gm Cap PO 1 gm BID JADYN Administration Folic Acid 1 mg 02/13/25 21:00 02/15/25 20:38 Folic Acid 1 Mg Tablet PO 1 mg HS JADYN Administration Glucagon 1 mg 02/13/25 00:41 Glucagon For Inj 1 Mg Vial IM PRN PRN Hypoglycemia Protocol Glucose 15 gm 02/13/25 00:41 Glucose Oral Gel 15 Gm Of Glucse In 37.5 Gm Tube PO PRN PRN Hypoglycemia Protocol Dextrose 1,000 mls @ 100 mls/hr 02/13/25 00:41 Dextrose 5% 1,000 Ml IVPB PRN PRN Hypoglycemia Protocol Insulin Aspart 2 - 5 units 02/13/25 08:00 02/16/25 17:10 Insulin Aspart (*Bkc) 100 Units/Ml SUB-Q 2 units TIDWM JADYN Administration Protocol Insulin Glargine 8 units 02/15/25 09:00 Insulin Glargine (*Bkc) 100 Units/Ml SUB-Q DAILY JADYN Metformin HCl 1,000 mg 02/13/25 08:00 02/14/25 09:24 Metformin Hcl 500 Mg Tablet PO 1,000 mg DAILY@0800 JADYN Administration Metoprolol Tartrate 25 mg 02/13/25 09:00 02/16/25 09:24 Metoprolol Tartrate 25 Mg Tablet PO 25 mg Q12HR JADYN Administration Nicotine 1 patch 02/12/25 21:00 02/16/25 09:28 Nicotine (*Pbkc) 21 Mg Patch TRANSDERM 1 patch DAILY JADYN Administration Ondansetron HCl 4 mg 02/14/25 16:30 02/16/25 17:11 Ondansetron Hcl Odt 4 Mg Tablet PO 4 mg TIDAC JADYN Administration Radiology Results: ITS Impressions Chest X-Ray 02/12/25 17:14 IMPRESSION: No acute cardiopulmonary process. Head CT 02/12/25 17:33 IMPRESSION: No acute intracranial process. Cervical Spine CT 02/12/25 17:51 IMPRESSION: No acute fracture or traumatic malalignment in the cervical spine. Severe degenerative changes in the cervical spine, with severe multilevel bilateral neural foraminal narrowing and severe central canal narrowing at C3-4. Thoracic/Lumbar Spine CT 02/12/25 17:57 IMPRESSION: No acute fracture or traumatic malalignment detected in the thoracic or lumbar spine Labs Labs: Laboratory Results - last 24 hr 02/15/25 02/16/25 02/16/25 20:15 04:39 07:27 Creatinine 0.77 Estim Creat Clear Calc 57 Estimated GFR > 60 POC Capillary Glucose 244 H 96 02/16/25 02/16/25 11:19 16:54 Creatinine Estim Creat Clear Calc Estimated GFR POC Capillary Glucose 265 H 210 H Quality VTE Prophylaxis VTE prophylaxis: pharmacologic ordered (Continue home Eliquis.) Hospitalist [facility] Advance Care Plan I have confirmed that the patient's Advanced Care Plan is present, code status is documented, or surrogate decision maker is listed in patient medical record.: Yes Medication Reconciliation I have utilized all available resources to obtain, update and review the patients current medications (includes all prescriptions, OTC, herbals, cannabis, and nutritional supplements).: Yes
[2025-02-16] MEDS: ATORVASTATIN 20 MG TABLET PO (20:57)
[2025-02-16] MEDS: DONEPEZIL HCL 10 MG TABLET PO (20:57)
[2025-02-16] MEDS: FOLIC ACID 1 MG TABLET PO (20:57)
[2025-02-17 05:27] LABS: Hematocrit 31.3 % (42.0-52.0); Hemoglobin 9.7 g/dL (14.0-18.0); Immature Granulocyte Percent A 0.5 % (0-0.5); Lymphocytes Absolute Auto 1.61 K/mm3 (0.9-3.2); Mean Corpuscular HGB Conc 31.0 g/dl (32-36); Mean Corpuscular Hemoglobin 31.4 pg (26-34); Mean Corpuscular Volume 101.3 fl (80-100); Nucleated Red Blood Cells Absolute Auto 0.000 K/mm3 (0.0-0.012); Nucleated Red Blood Cells Perc 0.0 % (0.0-0.2); Platelet Count Result 174 k/mm3 (150-375); Red Blood Count 3.09 M/mm3 (4.6-6.20); White Blood Count 10.6 K/mm3 (4.5-10.0)
[2025-02-17 05:33] LABS: Alanine Aminotransferase 11 U/L (6-50); Albumin Level 2.6 g/dL (3.5-5.1); Alkaline Phosphatase 101 U/L (38-126); Anion Gap 1 mmol/L (4-12); Aspartate Amino Transferase 17 U/L (17-59); Bilirubin,Total 0.5 mg/dL (0.2-1.3); Blood Urea Nitrogen 17 mg/dL (9-20); Calcium 8.6 mg/dL (8.4-10.2); Carbon Dioxide 32 mmol/L (22-30); Chloride 105 mmol/L (98-107); Estimated CRCL calculation 46 ml/min; Estimated Glomerular Filt Rate > 60; Glucose 142 mg/dL (65-110); Potassium 4.3 mmol/L (3.4-5.0); Sodium 138 mmol/L (137-145); Total Protein 6.0 g/dL (6.3-8.2)
[2025-02-17 06:00] VITALS: BP 134/53; PULSE 72; RESP 18; TEMP 36.7; O2SAT 95
[2025-02-17] MEDS: ONDANSETRON HCL ODT 4 MG TABLET PO ×2 (06:18→12:10)
[2025-02-17 09:54] VITALS: PULSE 80
[2025-02-17] MEDS: EMPAGLIFLOZIN 10 MG TABLET BY MOUTH (09:54)
[2025-02-17] MEDS: METOPROLOL TARTRATE 25 MG TABLET PO (09:54)
[2025-02-17] MEDS: OMEGA 3 POLYUNSAT FATTY ACIDS 1 GM CAP PO (09:54)
[2025-02-17] MEDS: APIXABAN 5 MG TABLET PO (09:56)
[2025-02-17] MEDS: CYANOCOBALAMIN 1,000 MCG TABLET 1000 MCG PO (09:56)
[2025-02-17] MEDS: INSULIN ASPART (*BKC) 100 UNITS/ML SUB-Q (09:56)
[2025-02-17] MEDS: NICOTINE (*PBKC) 21 MG PATCH 1 PATCH TRANSDERM (09:56)
== END 2025-02-17 13:40 | DRG 914 ==
LOC: ANHED 19:22 → ANH2MED 20:23
PROVIDERS: Admitting Provider Internal Medicine; Emergency Provider Emergency Medicine; PCP Internal Medicine; Visit Provider Nurse Practitioner Acute Care
DX: S09.90XA Unspecified injury of head, initial encounter (principal); W19.XXXA Unspecified fall, initial encounter; I95.9 Hypotension, unspecified; R29.6 Repeated falls; R60.9 Edema, unspecified; R62.7 Adult failure to thrive; E11.649 Type 2 diabetes mellitus with hypoglycemia without coma; E55.9 Vitamin D deficiency, unspecified; E78.5 Hyperlipidemia, unspecified; F17.210 Nicotine dependence, cigarettes, uncomplicated; F03.90 Unspecified dementia, unspecified severity, without behavioral disturbance, psychotic disturbance, mood disturbance, and anxiety; H91.90 Unspecified hearing loss, unspecified ear; I10 Essential (primary) hypertension; I48.0 Paroxysmal atrial fibrillation; J44.9 Chronic obstructive pulmonary disease, unspecified; Z79.01 Long term (current) use of anticoagulants; Z79.4 Long term (current) use of insulin; Z79.84 Long term (current) use of oral hypoglycemic drugs; Z86.73 Personal history of transient ischemic attack (TIA), and cerebral infarction without residual deficits; Z95.2 Presence of prosthetic heart valve
CPT/HCPCS: 36415; 70450; 71045; 72125; 72128; 72131; 80053; 81001; 82550; 82565; 82948; 83880; 85025; 85610; 85652; 85730; 86140; 87040; 87086; 87493; 96365; 96375; 97110; 97161; 97166; 97530; 97535; 99212; 99285; A9270; G0378; G0463; J0690; J1815; J3373; J7050; J7120

== ENCOUNTER 2025-02-25 21:34 | Emergency (ER) | payer MEDICARE, SELFPAY ==
[2025-02-25] VITALS (17 sets, daily range): BP systolic 100–141; BP diastolic 43–56; PULSE 91–115; RESP 15–23; TEMP 37.2; O2SAT 95–99
--- NOTE | ~2025-02-25 | CT_ITS ---
EXAMINATION: CT cervical spine wo con DATE: 02/25/2025 22:01 INDICATION: fall, hi TECHNIQUE: Computed tomography (CT) of the cervical spine was performed without intravenous contrast. Automated exposure control and iterative reconstruction technique were employed. The dose-length pro duct was 185.00 mGy-cm. COMPARISON: 02/12/2025. FINDINGS: Vertebral Body Alignment: Stable reversed lordosis. Mild stable listheses, presumably on a degenerati ve basis. Craniocervical and atlantoaxial alignment: Mild degenerative change. Alignment intact. Osseous structures/fracture: No evidence of a lytic or blastic process in the visualized spine. No e vidence of acute fracture. C2-C4 vertebral body fusion. Right-sided C2-3 facet fusion. Cervical soft tissues: The paraspinal soft tissues planes are maintained. Biapical pleural scarring. Degenerative changes: Multilevel severe degenerative disc disease and facet arthropathy. Severe centr al canal narrowing at C3-4 secondary to degenerative changes. Severe bilateral neural foraminal narro wing at C3-4 and on the right at C5-6, secondary to degenerative changes. IMPRESSION: No acute fracture or traumatic malalignment in the cervical spine. Severe degenerative changes in the cervical spine. Reviewed, dictated and finalized at location K. IMPRESSION: No acute fracture or traumatic malalignment in the cervical spine. Severe degen erative changes in the cervical spine.
--- NOTE | ~2025-02-25 | CT_ITS ---
EXAMINATION: CT brain wo con DATE: 02/25/2025 22:01 INDICATION: fall, hi . TECHNIQUE: Computed tomography (CT) of the head was performed without intravenous contrast. The mA wa s adjusted according to patient size. Iterative reconstruction technique was employed. The dose-lengt h product was 681.00 mGy-cm. COMPARISON: 02/12/2025. FINDINGS: No acute intracranial hemorrhage or extra-axial fluid collection. No hydrocephalus, mass, or herniation. No acute ischemic infarct. Unremarkable dural venous sinus attenuation. No acute osseous abnormality. The aerated spaces are clear. Moderate atrophy and chronic white matter change. Atherosclerotic intracranial calcification. Focal o ld right cerebellar, left basal ganglia lacunar, and left thalamic infarcts. IMPRESSION: No acute intracranial process. Reviewed, dictated and finalized at location K.
--- NOTE | 2025-02-25 22:00 | PC.NURSE ---
Report received from TRINI Garces. Assumed care of patient at this time.
--- NOTE | 2025-02-25 22:09 | ECG_ITS ---
Test Date: 2025-02-25 22:20:00 Measurements Intervals [place] Rate: 109 P: 0 ME: 0 QRS: -51 QRSD: 104 T: 93 QT: 344 QTc: 463 Interpretive Statements ATRIAL FIBRILLATION WITH RAPID VENTRICULAR RESPONSE CONSIDER RIGHT VENTRICULAR CONDUCTION DELAY LEFT ANTERIOR FASCICULAR BLOCK BASELINE WANDER- II, III, AVR, AVL, AVF, V4-V6 ABNORMAL ECG Compared to ECG 01/22/2025 09:46:30 HEART RATE HAS INCREASED Left anterior fascicular block now present Electronically Signed On 02-26-2025 08:07:46 CDT by John Tracey D.O.
--- OUTSIDE RECORDS SUMMARY | 2025-02-25 22:27 | XMS_ITS | Encounter Summary ---
Author Organization [facility] Healthcare Address [address] [place] [address] Care Team Providers Care Carpenter/Labor Name Role Phone Dimitry Kamara MD Primary Care Provider [phone] Jesusita Han MD Unavailable [phone] Encounter Details Date Type Department Care Team (Late st Contact Info) Description 03/22/2024 Orders Only [facility] Health Information Management [address] [place] [id number] Scanning, Provider Social History Tobacco Use Types Packs/Day Years Used Date Smoking Tobacco: Every Day Smokeless Tobacco: Never Comments:Smoking History Pac ks/day: 1 Packs Alcohol Use Standard Drinks/Week Comments No 0 (1 standard drink = 0.6 oz pur e alcohol) Sex and Gender Information Value Date Recorded Sex Assigned at Not on file 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 Gender Identity Not on file Sexual Orientation Not on file documented as of this encounter Plan of Treatment Not on file documented as of this encounter Procedures Procedure Name Priority Date/Time Associated Diagnosis Comments SCAN - LABS 03/22/2024 documented in this encounter Results * SCAN - LABS (03/22/2024) us Provider Scanning Final Result documented in this encounter Visit Diagnoses Not on filedocumented in this encounter Care Teams Carpenter/Labor Relationship Specialty Start Date End Date Dimitry Kamara MD [address] [place] [address] PCP - General 10/24/16 Jesusita Han MD [address] [facility] [address] [place] [address] Purchase Analyst 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
--- OUTSIDE RECORDS SUMMARY | 2025-02-25 22:27 | XMS_ITS | Clinical Summary ---
Author Organization [facility] Address [address] [place] [address] Care Team Providers Care Municipal Engineer Name Role Phone Dimitry Kamara MD Primary Care Provider [phone] Jesusita Han MD Unavailable [phone] Allergies No known active allergies Medications insulin [...] by mouth daily Active cholecalciferol (VITAMIN D-3) 37990 unit capsule Take 1 capsule (10,000 Units [...] Department Care Team Description 01/30/2025 Orders Only [facility] Medical [facility] Cardiology [address] [place] [address] Mishel Leal NP 12/26/2024 Telephone [facility] Cardiology [address] [place] [address] Chase Rivas MD from Last 3 Months [...] on file 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 Gender Identity Not on file Sexual Orientation Not on file Obstetrics History Last Filed Vital Signs Vital Sign Reading Time Taken Comments Blood Pressure 102/58 09/01/2024 2:37 PM PIT CLERK Pulse 55 09/01/2024 2:37 PM PIT CLERK Temperature - - Respiratory Rate - - Oxygen Saturation 91% 09/01/2024 2:37 PM PIT CLERK Inhaled Oxygen Concentration - - Weight 67.1 kg (148 lb) 09/01/2024 2:37 PM PIT CLERK Height 172.7 cm (5' 8) 09/01/2024 2:37 PM PIT CLERK Body Mass Index 22.5 09/01/2024 2:37 PM PIT CLERK Plan of Treatment Health Maintenance Due Date [...] Final Result from Last 3 Months Insurance [facility] MEDICARE ADVANTAGE [facility] MEDICARE ADVANTAGE Care Teams Municipal Engineer Relationship Specialty Start Date End Date Dimitry Kamara MD [address] [facility] [address] [place] [address] PCP - General 10/24/16 Jesusita Han MD [address] [facility] [address] [place] [address] Spray Mixer Cardiology 10/16/20
--- OUTSIDE RECORDS SUMMARY | 2025-02-25 22:27 | XMS_ITS | Clinical Summary ---
Author Organization [facility] [employer] Address [address] [place] [address] Care Team Providers Care Taxonomy Teacher Name Role Phone Dimitry Kamara MD Primary Care Provider [phone] Source Comments [facility] [employer],non-owned Affiliates and Associated Physician Practices is amultiple site organization consisting of ambulatory clinics and hospital sitesin [place], [place], [place] and [place]. This disclosure is being madepursuant to the Care Everywhere program and may not contain all information available regarding this patient. Last updated 18.[facility] [employer] Allergies No known active allergies Medications * [...] (one) tablet by mouth at bedtime Active [place]-3 Fatty Acids (fish oil) 500 MG capsule [...] Recorded Patient Health Questionnaire-2 Score 0 03/31/2024 [place] [place] [facility] - Occupational Stress [...] place to sleep or slept in a fdc (including now)? No 03/25/2024 Sex and Gender [...] - 26 mg/dL 04/01/2024 4:07 AM CDT [facility] Creatinine 0.69(L) 0.71 - 1.16 [...] ORDERABLES F inal Result Performing Organization Address [facility] Co de Phone Number [address] [address], [facility] [phone] * HEMOGLOBIN A1C (03/30/2024 7:56 AM CDT) Hemoglobin A1c 5.6 <=5.6 % 03/30/2024 9:41 AM [facility] Estimated Average Glucose 114 mg/dL 03/30/2024 9:41 AM [facility] Comment: HbA1c Interpretation: Normal : < 5.7% Pre-diabetes: 5.7-6.4% Diabetes: Equal to or greater than 6.5% Test results diagnostic of diabetes should be repeated for confirmation. Treatment target values recommended by ADA and other clinical organizations should be used to evaluate metabolic control in patients. Reference: [place] [employer] Association, Standards of Care in Diabetes [...] ORDERABLES F inal Result Performing Organization Address City/[facility]/ZIP Co de Phone Number [address] [address], [facility] [phone] from Last 3 Months or Most Recently Relevant to Health Maintenance Insurance [facility] MANAGED MEDICARE ADV Advance Directives * Full Code (Latest Code Status on File) Date Activated Date Inactivated Comments 03/25/2024 8:09 PM 04/01/2024 1:28 PM Care Teams Taxonomy Teacher Relationship Specialty Start Date End Date Dimitry Kamara MD [address] [facility] [address] [facility] [address] [place] [address] PCP - General Internal Medicine 04/13/24
--- OUTSIDE RECORDS SUMMARY | 2025-02-25 22:27 | XMS_ITS | Referral Summary ---
Author Organization [facility] Address [address] [place] [address] Care Team Providers Care Research Editor Name Role Phone Dimitry Kamara MD Primary Care Provider [phone] Jesusita Han MD Unavailable [phone] Encounters Date Type Department Care Team Description 01/30/[address] [facility] Cardiology [address] [place] [address] Mishel Leal NP 12/26/[address] 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 Gender Identity Not on file Sexual Orientation Not on file Last Filed Vital Signs Vital Sign Reading Time Taken Comments Blood Pressure 102/58 09/01/2024 2:37 PM CYANIDE FURNACE OPERATOR Pulse 55 09/01/2024 2:37 PM CYANIDE FURNACE OPERATOR Temperature - - Respiratory Rate - - Oxygen Saturation 91% 09/01/2024 2:37 PM CYANIDE FURNACE OPERATOR Inhaled Oxygen Concentration - - Weight 67.1 kg (148 lb) 09/01/2024 2:37 PM CYANIDE FURNACE OPERATOR Height 172.7 cm (5' 8) 09/01/2024 2:37 PM CYANIDE FURNACE OPERATOR Body Mass Index 22.5 09/01/2024 2:37 PM CYANIDE FURNACE OPERATOR Plan of Treatment Not on file Procedures Procedure Name Priority Date/Time Associated Diagnosis Comments CARDIOLOGY DOCUMENT SCAN Routine 01/24/2025 4:22 PM CDT from Last 3 Months Results * Cardiology Document Scan (01/24/2025 4:22 PM CDT) Anatomical Region Laterality Modality Other Mishel Leal NP CV CARDIAC SERVICES PROCEDUR ES Final Result from Last 3 Months Insurance MEDICARE [facility] MEDICARE Address: [place] [id number] UHC MEDICARE ADVANT[facility] MEDICARE Address: [facility] [address] [place] [address] Care Teams Research Editor Relationship Specialty Start Date End Date Dimitry Kamara MD [address] [place] [address] PCP - General 10/24/16 Jesusita Han MD [address] [facility] [address] [place] [address] Handstitching Machine Collar Feller Cardiology 10/16/20
--- OUTSIDE RECORDS SUMMARY | 2025-02-25 22:27 | XMS_ITS | Encounter Summary ---
Author Organization [facility] Address [address] [place] [address] Care Team Providers Care Project Finance Analyst Name Role Phone Dimitry Kamara MD Primary Care Provider [phone] Jesusita Han MD Unavailable [phone] Encounter Details Date Type Department Care Team (Late st Contact Info) Description 02/24/2024 Orders Only [facility] [place] [address] [place] [id number] Scanning, Provider Social History Tobacco Use Types Packs/Day Years Used Date Smoking Tobacco: Every Day Smokeless Tobacco: Never Comments:Smoking History Pac ks/day: 1 Packs Alcohol Use Standard Drinks/Week Comments No 0 (1 standard drink = 0.6 oz pur e alcohol) Sex and Gender Information Value Date Recorded Sex Assigned at Not on file 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 Gender Identity Not on file Sexual Orientation Not on file documented as of this encounter Plan of Treatment Not on file documented as of this encounter Procedures Procedure Name Priority Date/Time Associated Diagnosis Comments SCAN - LABS 02/24/2024 documented in this encounter Results * SCAN - LABS (02/24/2024) us Provider Scanning Final Result documented in this encounter Visit Diagnoses Not on filedocumented in this encounter Care Teams Project Finance Analyst Relationship Specialty Start Date End Date Dimitry Kamara MD [address] [place] [address] PCP - General 10/24/16 Jesusita Han MD [address] [facility] [address] [place] [address] Pathological Technician 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
--- OUTSIDE RECORDS SUMMARY | 2025-02-25 22:28 | XMS_ITS | Encounter Summary ---
Author Organization [facility] Address 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 INR 2.1(H) 0.9 - 1.1 [facility] Comment: INR Therapeutic Range: Adult: 2.0 - 3.0 for pulmonary embolism or prophylaxis against venous thrombosis or systemic embolization. 2.0 - 3.0 for patients with tissue heart valves. 2.5 - 3.5 for patients with mechanical heart valves or post [place]. Pediatric (12 years and under): 1.5 - [...] Jr., MD HEMATOLOGY ORDERABLES F inal Result [facility] CLIA# [id number] [address] [place] [address] documented in this encounter Visit Diagnoses Diagnosis Atrial fibrillation (CMS/HCC) Atrial fibrillation documented in this encounter Care Teams Mcat Instructor Relationship Specialty Start Date End Date Dimitry Kamara MD PCP - General 12/10/07 documented as of this encounter
--- OUTSIDE RECORDS SUMMARY | 2025-02-25 22:28 | XMS_ITS | Encounter Summary ---
Author Organization [facility] Address [address] [place] [address] Care Team Providers Care Content Specialist Name Role Phone Meryl Friedman MD Primary [...] on file Legal Sex Male 2:54 AM TODDLER NANNY Gender Identity Not on file Sexual Orientation Not on file documented as of this encounter Plan of Treatment Not on file documented as of this encounter Procedures Procedure Name Priority Date/Time Associated Diagnosis Comments CL CORONARY ANGIOGRAM Routine 06/03/2008 4:22 PM TODDLER NANNY POC GLUCOSE Routine 11/16/2007 7:22 AM CDT [...] * CL CORONARY ANGIOGRAM (06/03/2008 4:22 PM TODDLER NANNY) Narrative INTERFACE SYSTEM - 06/03/2008 4:22 PM TODDLER NANNY [id number] [place] [address] [email or web address] Comprehensive Report Patient: Patricia Dunham Study ID: [id number] Gender: M : 1945 Age: 62 years Race: 1 Room: Bed: Height: 70 in ( 177.8 cm ) Study Date: November 08, 2007 Patient status: Inpatient Weight: 218 lb ( 99.1 kg ) Access. #: [id number] POC: Attending MD: Lien Performing MD: Lien [...] - Right heart catheterization. A 7 Fr Mullen Rica catheter was advanced to the pulmonary [...] placed and contrast was injected. 60 degree [place] projection - Arterial hemostasis was obtained by [...] 16:02:33 Procedure Note Provider, Historical - 06/03/2008 [address] [place] [address] [email or web address] Comprehensive Report Patient: Patricia Dunham Study ID: [id number] Gender: M : 1945 Age: 62 years Race: 1 Room: Bed: Height: 70 in ( 177.8 cm ) Study Date: November 08, 2007 Patient status: Inpatient Weight: 218 lb ( 99.1 kg ) Access. #: [id number] POC: Attending MD: Lien Blair MD: Lien [...] - Right heart catheterization. A 7 Fr Mullen Rica catheter was advancedto the pulmonary artery [...] placed and contrast was injected. 60 degree [place] projection - Arterial hemostasis was obtained by [...] FLUOROSCOPY ORDERABLES Final Result Performing Organization Address City/[facility] Co de Phone Number INTERFACE SYSTEM Refer to clinic/hospital department * POC GLUCOSE (11/16/2007 7:22 AM CDT) GLUCOSE POC 97 65 - 99 mg/dL [facility] Venous blood specimen (specimen) 11/16/2007 7:22 AM CDT 11/16/2007 7:22 AM CDT Jesusita Roland MD POINT OF CARE TESTING Final Result Performing Organization Address [facility] de Phone Number [facility] [address] [place] [address] * (ABNORMAL) PROTIME-INR (11/16/2007 5:00 AM CDT) PROTIME 20.4(H) 12.7 - 15.1 Seconds [facility] INR 1.7(H) 0.9 - 1.1 [facility] Comment: INR Therapeutic Range: Adult: 2.0 [...] HAMM HEMATOLOGY ORDERABLES Edited Performing Organization Address City/[facility]/ZIP Co de Phone Number [facility] [address] [place] [address] * (ABNORMAL) POC GLUCOSE (11/15/2007 8:06 PM CDT) GLUCOSE POC 123(H) 65 - 99 mg/dL [facility] Venous blood specimen (specimen) 11/15/2007 8:06 PM CDT 11/15/2007 8:06 PM CDT Jesusita Roland MD POINT OF CARE TESTING Final Result Performing Organization Address [facility] Co de Phone Number [facility] [address] [place] [address] * (ABNORMAL) POC GLUCOSE (11/15/2007 4:47 PM CDT) GLUCOSE POC 62(L) 65 - 99 mg/dL [facility] Venous blood specimen (specimen) 11/15/2007 4:47 PM CDT 11/15/2007 4:47 PM CDT Jesusita Roladn MD POINT OF CARE TESTING Final Result Performing Organization Address City/[facility]/ZIP Co de Phone Number [facility] [address] [place] [address] * (ABNORMAL) POC GLUCOSE (11/15/2007 10:57 AM CDT) GLUCOSE POC 162(H) 65 - 99 mg/dL [facility] Venous blood specimen (specimen) 11/15/2007 10:57 AM CDT 11/15/2007 10:57 AM CDT Jesusita Roland MD POINT OF CARE TESTING Final Result Performing Organization Address [facility] de Phone Number [facility] [address] [place] [address] * (ABNORMAL) PROTIME-INR (11/15/2007 4:00 AM CDT) PROTIME 16.8(H) 12.7 - 15.1 Seconds [facility] INR 1.4(H) 0.9 - 1.1 [facility] Comment: INR Therapeutic Range: Adult: 2.0 [...] ORDERABLES F inal Result Performing Organization Address [facility] Co de Phone Number [facility] [address] [place] [address] * MAGNESIUM LEVEL (11/15/2007 4:00 AM CDT) MAGNESIUM 2.4 1.5 - 2.5 mg/dL [facility] Blood specimen (specimen) 11/15/2007 4:00 AM CDT 11/15/2007 4:24 AM CDT Mary Arellano Jr., MD CHEMISTRY ORDERABLES Fi nal Result Performing Organization Address [facility]/ZIP Co de Phone Number [facility] [address] [place] [address] * (ABNORMAL) BASIC METABOLIC PANEL (11/15/2007 4:00 AM CDT) CHLORIDE 99 96 - 108 mmol/L [facility] GLUCOSE 91 65 - 99 mg/dL [facility] SODIUM 134(L) 135 - 145 mmol/L [facility] CALCIUM 8.4 8.4 - 10.2 mg/dL [facility] CO2 26 22 - 30 mmol/L [facility] CREATININE 0.83 0.67 - 1.17 mg/dL [facility] POTASSIUM 4.3 3.5 - 4.9 mmol/L [facility] BUN 26(H) 6 - 20 mg/dL [facility] GFR, >60 >=60 mL/min/1. 7 sq meter [facility] GFR >60 >=60 mL/min/1. 7 sq meter [facility] Comment: Estimated GFR rate interpretative information for both Americans and non- Americans is available on the [facility] Intranet at: [email or web address] Select: Lab Policies and Procedures Select: Reference Ranges - GFR Blood specimen (specimen) 11/15/2007 4:00 AM CDT 11/15/2007 4:24 AM CDT Mary Arellano Jr., MD CHEMISTRY ORDERABLES Ed ited Performing Organization Address City/[facility]/ZIP Co de Phone Number [facility] [address] [place] [address] * (ABNORMAL) CBC WITH DIFFERENTIAL (11/15/2007 4:00 AM CDT) RBC 4.03(L) 4.50 - 5.40 M/uL [facility] MCHC 33.1 31.5 - 35.5 % [facility] MCV 98.3 82.0 - 99.0 fL [facility] PLATELETS 106(L) 140 - 350 K/uL [facility] HEMOGLOBIN 13.1(L) 13.6 - 16.5 g/dL [facility] RDW 13.3 11.5 - 14.5 % [facility] WBC 13.6(H) 4.0 - 9.8 K/uL [facility] MCH 32.5 27.2 - 32.6 pg [facility] MPV 12.2 9.3 - 12.4 fL [facility] HEMATOCRIT 39.6(L) 40.0 - 48.0 % [facility] RDW-STDEV 47.5 37.1 - 48.7 fL [facility] NEUTROPHILS 77(H) 45 - 70 % [facility] NEUTROPHIL ABSOLUTE 10.45(H) 1.90 - 7.00 K/uL [facility] EOSINOPHILS 1 0 - 7 % [facility] EOSINOPHIL ABSOLUTE 0.08 0.00 - 0.70 K/uL [facility] LYMPHOCYTES 11(L) 16 - 45 % [facility] LYMPHOCYTE ABSOLUTE 1.50 0.70 - 4.50 K/uL [facility] BASOPHILS 0 0 - 2 % [facility] BASOPHILS ABSOLUTE 0.01 0.00 - 0.20 K/uL [facility] MONOCYTES 11 3 - 13 % [facility] MONOCYTE ABSOLUTE 1.51(H) 0.10 - 1.30 K/uL [facility] Blood specimen (specimen) 11/15/2007 4:00 AM CDT 11/15/2007 4:24 AM CDT Mary Arellano Jr., MD HEMATOLOGY ORDERABLES E dited Performing Organization Address City/[facility] Co de Phone Number INTERFACE SYSTEM Refer to clinic/hospital department [facility] [address] [place] [address] * POC GLUCOSE (11/14/2007 8:08 PM CDT) GLUCOSE POC 93 65 - 99 mg/dL [facility] Venous blood specimen (specimen) 11/14/2007 8:08 PM CDT 11/14/2007 8:08 PM CDT Jesusita Roland MD POINT OF CARE TESTING Final Result Performing Organization Address [facility] Co de Phone Number [facility] [address] [address] * (ABNORMAL) POC GLUCOSE (11/14/2007 4:11 PM CDT) GLUCOSE POC 112(H) 65 - 99 mg/dL [facility] Venous blood specimen (specimen) 11/14/2007 4:11 PM CDT 11/14/2007 4:11 PM CDT Jesusita Roland MD POINT OF CARE TESTING Final Result Performing Organization Address City/[facility]/ZIP Co de Phone Number [facility] [address] [place] [address] * (ABNORMAL) POC GLUCOSE (11/14/2007 11:29 AM CDT) GLUCOSE POC 108(H) 65 - 99 mg/dL [facility] Venous blood specimen (specimen) 11/14/2007 11:29 AM CDT 11/14/2007 11:29 AM CDT Jesusita Roland MD POINT OF CARE TESTING Final Result [facility] [address] [place] [address] * POC GLUCOSE (11/14/2007 7:44 AM CDT) GLUCOSE POC 84 65 - 99 mg/dL [facility] Venous blood specimen (specimen) 11/14/2007 7:44 AM CDT 11/14/2007 7:44 AM CDT Jesusita Roland MD POINT OF CARE TESTING Final Result Performing Organization Address [facility] Co de Phone Number [facility] [address] [place] [address] * XR CHEST PA AND LATERAL (11/14/2007 5:55 AM CDT) Anatomical Region Laterality Modality Chest Other 11/14/2007 5:55 AM CDT Narrative 11/14/2007 8:46 AM CDT [facility] [address] [place], [place] [address] Admit Date: 11/02/2007 PATRICIA DUNHAM Sex: M Admit Prov: JESUSITA ROLAND Date: 1945 Primary Care Prov: MERYL FRIEDMAN CMRN: [id number] Room: [address] [place] [address] SSN: [id number] IMAGING SERVICES Ordering Prov: N/A Accession Number: [id number] Interpretation Chest 2 views, 11/14/07 Comparison: 11/12/2007 [...] 08:46 Procedure Note Asia Alarcon - 11/14/2007 [facility] [address] [place], [place] [address] Admit Date: 11/02/2007 PATRICIA DUNHAM Sex: M Admit Prov: JESUSITA ROLAND Date: 1945 Primary Care Prov: MERYL FRIEDMAN CMRN: [id number] Room: [address] [place] [address] SSN: [id number] IMAGING SERVICES Ordering Prov: N/A Interpretation Chest [...] Mary Arellano Jr., MD DIAGNOSTIC IMAGING [facility] Final Result * (ABNORMAL) CBC WITH DIFFERENTIAL (11/14/2007 4:25 AM CDT) MCH 32.1 27.2 - 32.6 pg [facility] MPV 12.5(H) 9.3 - 12.4 fL [facility] HEMATOCRIT 40.3 40.0 - 48.0 % [facility] RDW-STDEV 48.3 37.1 - 48.7 fL [facility] RBC 4.05(L) 4.50 - 5.40 M/uL [facility] MCHC 32.3 31.5 - 35.5 % [facility] MCV 99.5(H) 82.0 - 99.0 fL [facility] PLATELETS 81(L) 140 - 350 K/uL [facility] Comment: Persistent abnormal result HEMOGLOBIN 13.0(L) 13.6 - 16.5 g/dL [facility] RDW 13.3 11.5 - 14.5 % [facility] WBC 15.4(H) 4.0 - 9.8 K/uL [facility] MONOCYTE ABSOLUTE 1.92(H) 0.10 - 1.30 K/uL [facility] NEUTROPHILS 79(H) 45 - 70 % [facility] NEUTROPHIL ABSOLUTE 12.20(H) 1.90 - 7.00 K/uL [facility] EOSINOPHILS 0 0 - 7 % [facility] EOSINOPHIL ABSOLUTE 0.03 0.00 - 0.70 K/uL [facility] LYMPHOCYTES 8(L) 16 - 45 % [facility] LYMPHOCYTE ABSOLUTE 1.20 0.70 - 4.50 K/uL [facility] BASOPHILS 0 0 - 2 % [facility] BASOPHILS ABSOLUTE 0.02 0.00 - 0.20 K/uL [facility] MONOCYTES 13 3 - 13 % [facility] Blood specimen (specimen) 11/14/2007 4:25 AM CDT 11/14/2007 5:48 AM CDT us Charleen HAMM HEMATOLOGY ORDERABLES Edited INTERFACE SYSTEM Refer to clinic/hospital department [facility] [address] [place] [address] * (ABNORMAL) POC GLUCOSE (11/13/2007 8:54 PM CDT) GLUCOSE POC 114(H) 65 - 99 mg/dL [facility] Venous blood specimen (specimen) 11/13/2007 8:54 PM CDT 11/13/2007 8:54 PM CDT us Jesusita Roland MD POINT OF CARE TESTING Final Result Performing Organization Address [facility]/ZIP Co de Phone Number [facility] [address] [place] [address] * (ABNORMAL) POC GLUCOSE (11/13/2007 4:21 PM CDT) GLUCOSE POC 64(L) 65 - 99 mg/dL [facility] Venous blood specimen (specimen) 11/13/2007 4:21 PM CDT 11/13/2007 4:21 PM CDT us Jesusita Roland MD POINT OF CARE TESTING Final Result Performing Organization Address [facility] Co de Phone Number [facility] [address] [place] [address] * (ABNORMAL) POC GLUCOSE (11/13/2007 11:25 AM CDT) GLUCOSE POC 161(H) 65 - 99 mg/dL [facility] Venous blood specimen (specimen) 11/13/2007 11:25 AM CDT 11/13/2007 11:25 AM CDT us Jesusita Roland MD POINT OF CARE TESTING Final Result Performing Organization Address City/[facility] Co de Phone Number [facility] [address] [place] [address] * (ABNORMAL) POC GLUCOSE (11/13/2007 7:23 AM CDT) GLUCOSE POC 101(H) 65 - 99 mg/dL [facility] Venous blood specimen (specimen) 11/13/2007 7:23 AM CDT 11/13/2007 7:23 AM CDT Jesusita Roland MD POINT OF CARE TESTING Final Result Performing Organization Address City/[facility]/ZIP Co de Phone Number [facility] [address] [place] [address] * MAGNESIUM LEVEL (11/13/2007 5:00 AM CDT) MAGNESIUM 2.3 1.5 - 2.5 mg/dL [facility] Blood specimen (specimen) 11/13/2007 5:00 AM CDT 11/13/2007 5:46 AM CDT Mary Arellano Jr., MD CHEMISTRY ORDERABLES Fi nal Result Performing Organization Address [facility] Co de Phone Number [facility] [address] [place] [address] * (ABNORMAL) BASIC METABOLIC PANEL (11/13/2007 5:00 AM CDT) BUN 17 6 - 20 mg/dL [facility] CHLORIDE 100 96 - 108 mmol/L [facility] GLUCOSE 106(H) 65 - 99 mg/dL [facility] SODIUM 135 135 - 145 mmol/L [facility] CALCIUM 8.7 8.4 - 10.2 mg/dL [facility] CO2 28 22 - 30 mmol/L [facility] CREATININE 0.93 0.67 - 1.17 mg/dL [facility] POTASSIUM 4.6 3.5 - 4.9 mmol/L [facility] GFR, >60 >=60 mL/min/1. 7 sq meter [facility] GFR >60 >=60 mL/min/1. 7 sq meter [facility] Comment: Estimated GFR rate interpretative information for both Americans and non- Americans is available on the [facility] Intranet at: [email or web address] Select: Lab Policies and Procedures Select: Reference Ranges - GFR Blood specimen (specimen) 11/13/2007 5:00 AM CDT 11/13/2007 5:46 AM CDT Mary Arellano Jr., MD CHEMISTRY ORDERABLES Ed ited [facility] [address] [place] [address] * (ABNORMAL) CBC WITH DIFFERENTIAL (11/13/2007 5:00 AM CDT) HEMATOCRIT 44.2 40.0 - 48.0 % [facility] RDW-STDEV 47.5 37.1 - 48.7 fL [facility] RBC 4.43(L) 4.50 - 5.40 M/uL [facility] MCHC 32.6 31.5 - 35.5 % [facility] MCV 99.8(H) 82.0 - 99.0 fL [facility] PLATELETS 82(L) 140 - 350 K/uL [facility] HEMOGLOBIN 14.4 13.6 - 16.5 g/dL [facility] RDW 13.2 11.5 - 14.5 % [facility] WBC 19.9(H) 4.0 - 9.8 K/uL [facility] MCH 32.5 27.2 - 32.6 pg [facility] MPV 12.7(H) 9.3 - 12.4 fL [facility] EOSINOPHILS 0 0 - 7 % [facility] EOSINOPHIL ABSOLUTE 0.04 0.00 - 0.70 K/uL [facility] LYMPHOCYTES 7(L) 16 - 45 % [facility] LYMPHOCYTE ABSOLUTE 1.37 0.70 - 4.50 K/uL [facility] BASOPHILS 0 0 - 2 % [facility] BASOPHILS ABSOLUTE 0.02 0.00 - 0.20 K/uL [facility] MONOCYTES 12 3 - 13 % [facility] MONOCYTE ABSOLUTE 2.40(H) 0.10 - 1.30 K/uL [facility] NEUTROPHILS 81(H) 45 - 70 % [facility] NEUTROPHIL ABSOLUTE 16.10(H) 1.90 - 7.00 K/uL [facility] Blood specimen (specimen) 11/13/2007 5:00 AM CDT 11/13/2007 5:46 AM CDT us Mary Arellano Jr., MD HEMATOLOGY ORDERABLES E dited INTERFACE SYSTEM Refer to clinic/hospital department [facility] [address] [place] [address] * (ABNORMAL) POC GLUCOSE (11/12/2007 8:47 PM CDT) GLUCOSE POC 174(H) 65 - 99 mg/dL [facility] Venous blood specimen (specimen) 11/12/2007 8:47 PM CDT 11/12/2007 8:47 PM CDT us Jesusita Roland MD POINT OF CARE TESTING Final Result Performing Organization Address City/[facility] Co de Phone Number [facility] [address] [place] [address] * (ABNORMAL) POC GLUCOSE (11/12/2007 6:10 PM CDT) GLUCOSE POC 165(H) 65 - 99 mg/dL [facility] Venous blood specimen (specimen) 11/12/2007 6:10 PM CDT 11/12/2007 6:10 PM CDT Jesusita Roland MD POINT OF CARE TESTING Final Result [facility] [address] [place] [address] * (ABNORMAL) POC GLUCOSE (11/12/2007 12:15 PM CDT) COMMENT, GLU POC Notified RN [facility] GLUCOSE POC 177(H) 65 - 99 mg/dL [facility] Venous blood specimen (specimen) 11/12/2007 12:15 PM CDT 11/12/2007 12:15 PM CDT Jesusita Roland MD POINT OF CARE TESTING Final Result Performing Organization Address [facility] Co de Phone Number [facility] [address] [place] [address] * XR CHEST PA OR AP (11/12/2007 8:55 AM CDT) Anatomical Region Laterality Modality Chest Other 11/12/2007 8:55 AM CDT Narrative 11/12/2007 9:23 AM CDT [facility] [address] [place], [place] [address] Admit Date: 11/02/2007 PATRICIA DUNHAM Sex: M Admit Prov: JESUSITA ROLAND Date: 1945 Primary Care Prov: MERYL FRIEDMAN CMRN: [id number] Room: [address] [place] [address] SSN: [id number] IMAGING SERVICES Ordering Prov: N/A Accession Number: [id number] Interpretation Chest single view 11/12/2007 History: Chest [...] 09:23 Procedure Note Jessica Pepe - 11/12/2007 [facility] [address] [place], [place] [address] Admit Date: 11/02/2007 PATRICIA DUNHAM Sex: M Admit Prov: JESUSITA ROLAND Date: 1945 Primary Care Prov: CARMINEBee MERYL Luh CMRN: [id number] Room: [address] [place] [address] SSN: [id number] IMAGING SERVICES Ordering Prov: N/A Interpretation Chest [...] GLUCOSE POC 176(H) 65 - 99 mg/dL [facility] Venous blood specimen (specimen) 11/12/2007 7:40 AM CDT 11/12/2007 7:40 AM CDT us Jesusita Roland MD POINT OF CARE TESTING Final Result [facility] [address] [place] [place] [address] * XR CHEST PA OR AP (11/12/2007 7:20 AM CDT) Anatomical Region Laterality Modality Chest Other 11/12/2007 7:20 AM CDT Narrative 11/12/2007 9:12 AM CDT [facility] [address] [place], [place] [address] Admit Date: 11/02/2007 PATRICIA DUNHAM Sex: M Admit Prov: JESUSITA ROLAND Date: 1945 Primary Care Prov: MERYL FRIEDMAN CMRN: [id number] Room: [address] [place] [address] SSN: [id number] IMAGING SERVICES Ordering Prov: N/A Accession Number: [id number] Interpretation Chest single view 11/12/2007 History: Postop Findings: Comparison study is from the same day. The right Mullen-Rica catheter has been removed. There is right intravenous catheter with its tip in SVC. One of the left chest tubes has been removed. No pneumothorax is seen. Small left pleural effusion and mild left lower lobe atelectasis are noted. . Dictated by: JESSICA PEPE 11/12/2007 09:11 Electronically signed by: JESSICA PEPE 11/12/2007 09:12 Procedure Note Jessica Pepe - 11/12/2007 [id number] [place], [place] [address] Admit Date: 11/02/2007 ANIKETPATRICIA MERRITT Sex: M Admit Prov: JESUSITA ROLAND Date: 1945 Primary Care Prov: MERYL FRIEDMAN CMRN: [id number] Room: [address] [place] [address] SSN: [id number] IMAGING SERVICES Ordering Prov: N/A Interpretation Chest [...] GLUCOSE POC 151(H) 65 - 99 mg/dL [facility] Venous blood specimen (specimen) 11/12/2007 6:18 AM CDT 11/12/2007 6:18 AM CDT us Jesusita Roland MD POINT OF CARE TESTING Final Result Performing Organization Address City/State/[facility] Co de Phone Number [facility] [address] [place] [address] * XR CHEST PA OR AP (11/12/2007 5:20 AM CDT) Anatomical Region Laterality Modality Chest Other 11/12/2007 5:20 AM CDT Narrative 11/12/2007 9:04 AM CDT [facility] [address] [place], [place] [address] Admit Date: 11/02/2007 PATRICIA DUNHAM Sex: M Admit Prov: JESUSITA ROLAND Date: 1945 Primary Care Prov: MERYL FRIEDMAN CMRN: [id number] Room: [facility] SSN: [id number] IMAGING SERVICES Ordering Prov: N/A Accession Number: [id number] Interpretation Chest, 11/12/2007 Clinical History: Respiratory abnormality and previous cardiac surgery. AP portable semiupright view of the chest on 11/12/2007 at 0515 hours is compared to 11/11/2007. The patient has been extubated. The patient is status post median sternotomy and prosthetic aortic valve. The mediastinal drainage tubes and left basilar chest tube are unchanged. A Mullen-Rica catheter is noted with the tip projected [...] Procedure Note Jenna Maldonado MD - 11/12/2007 [facility] [address], [place] [address] Admit Date: 11/02/2007 PATRICIA DUNHAM Sex: M Admit Prov: JESUSITA ROLAND Date: 1945 Primary Care Prov: AISHALopezMERYL GIORDANO Luh CMRN: [id number] Room: [address] [place] [address] SSN: [id number] IMAGING SERVICES Ordering Prov: N/A Interpretation Chest, [...] GLUCOSE POC 141(H) 65 - 99 mg/dL [facility] Venous blood specimen (specimen) 11/12/2007 5:06 AM CDT 11/12/2007 5:06 AM CDT Jesusita Roland MD POINT OF CARE TESTING Final Result Performing Organization Address City/[facility]/ZIP Co de Phone Number [facility] [address] [place] [address] * (ABNORMAL) POC GLUCOSE (11/12/2007 4:24 AM CDT) GLUCOSE POC 110(H) 65 - 99 mg/dL [facility] Venous blood specimen (specimen) 11/12/2007 4:24 AM CDT 11/12/2007 4:24 AM CDT Jesusita Roland MD POINT OF CARE TESTING Final Result Performing Organization Address City/[facility]/ZIP Co de Phone Number [facility] [address] [place] [address] * (ABNORMAL) PT AND APTT (11/12/2007 4:15 AM CDT) INR 1.3(H) 0.9 - 1.1 [facility] Comment: INR Therapeutic Range: Adult: 2.0 [...] established. PROTIME 16.3(H) 12.7 - 15.1 Seconds [facility] PTT 26.9 24.4 - 36.4 Seconds [facility] Comment: PTT Therapeutic Range: Heparin Level PTT (seconds) <0.10 units/mL <53 0.10 - 0.30 units/mL 53 - 67 0.30 - 0.70 units/mL* 67 - 95* 0.70 - 1.00 units/mL 95 - 116 *corresponds to therapeutic range for unfractionated heparin Blood specimen (specimen) 11/12/2007 4:15 AM CDT 11/12/2007 4:35 AM CDT Mary Arellano Jr., MD HEMATOLOGY ORDERABLES E dited [facility] [address] [facility] [place] [address] * (ABNORMAL) COMPREHENSIVE METABOLIC PANEL (11/12/2007 4:15 AM CDT) ALKALINE PHOSPHATASE 35(L) 40 - 129 U/L [facility] BILIRUBIN TOTAL 0.5 0.2 - 1.0 mg/dL [facility] CO2 22 22 - 30 mmol/L [facility] TOTAL PROTEIN 5.5(L) 6.3 - 8.6 g/dL [facility] POTASSIUM 4.8 3.5 - 4.9 mmol/L [facility] Comment: Slight hemolysis present. Result may be falsely elevated. GLUCOSE 144(H) 65 - 99 mg/dL [facility] AST 44(H) 12 - 38 U/L [facility] Comment: Hemolyzed: Result may be falsely elevated. BUN 14 6 - 20 mg/dL [facility] CALCIUM 7.8(L) 8.4 - 10.2 mg/dL [facility] CHLORIDE 108 96 - 108 mmol/L [facility] ALBUMIN 3.2(L) 3.4 - 4.8 g/dL [facility] CREATININE 0.89 0.67 - 1.17 mg/dL [facility] SODIUM 139 135 - 145 mmol/L [facility] ALT 25 0 - 41 U/L [facility] GFR, >60 >=60 mL/min/1. 7 sq meter [facility] GFR >60 >=60 mL/min/1. 7 sq meter [facility] Comment: Estimated GFR rate interpretative information for both Americans and non- Americans is available on the [facility] Intranet at: [email or web address] Select: Lab Policies and Procedures Select: Reference Ranges - GFR Blood specimen (specimen) 11/12/2007 4:15 AM CDT 11/12/2007 4:35 AM CDT Mary Arellano Jr., MD CHEMISTRY ORDERABLES Ed ited [facility] [address] [facility] [place] [address] * (ABNORMAL) CVR ONLY, CKMB/CK (11/12/2007 4:15 AM CDT) CKMB 18.2(AA) <=6.7 ng/mL [facility] Comment: Persistent abnormal result CKMB INTERP See Below [facility] Comment: Elevated CKMB,Consistent with Myocardial Injury CK 326(H) 10 - 170 U/L [facility] Comment: Hemolyzed: Result may be falsely elevated. CARDIAC RELATIVE INDEX 5.6(H) <=4.0 [facility] Blood specimen (specimen) 11/12/2007 4:15 AM CDT 11/12/2007 4:35 AM CDT Mary Arellano Jr., MD CHEMISTRY ORDERABLES Ed ited [facility] [address] [place], [place] [address] * (ABNORMAL) CBC WITH DIFFERENTIAL (11/12/2007 4:15 AM CDT) MCV 98.6 82.0 - 99.0 fL [facility] HEMOGLOBIN 15.9 13.6 - 16.5 g/dL [facility] RDW 13.1 11.5 - 14.5 % [facility] WBC 18.2(H) 4.0 - 9.8 K/uL [facility] MCH 32.9(H) 27.2 - 32.6 pg [facility] HEMATOCRIT 47.7 40.0 - 48.0 % [facility] RDW-STDEV 47.1 37.1 - 48.7 fL [facility] RBC 4.84 4.50 - 5.40 M/uL [facility] MCHC 33.3 31.5 - 35.5 % [facility] EOSINOPHILS 0 0 - 7 % [facility] EOSINOPHIL ABSOLUTE 0.00 0.00 - 0.70 K/uL [facility] LYMPHOCYTES 3(L) 16 - 45 % [facility] LYMPHOCYTE ABSOLUTE 0.52(L) 0.70 - 4.50 K/uL [facility] BASOPHILS 0 0 - 2 % [facility] BASOPHILS ABSOLUTE 0.02 0.00 - 0.20 K/uL [facility] MONOCYTES 9 3 - 13 % [facility] MONOCYTE ABSOLUTE 1.70(H) 0.10 - 1.30 K/uL [facility] NEUTROPHILS 88(H) 45 - 70 % [facility] NEUTROPHIL ABSOLUTE 15.98(H) 1.90 - 7.00 K/uL [facility] PLATELETS 81(L) 140 - 350 K/uL [facility] Comment: Platelets verified by smear review. MPV 12.7(H) 9.3 - 12.4 fL [facility] Blood specimen (specimen) 11/12/2007 4:15 AM CDT 11/12/2007 4:35 AM CDT Mary Arellano Jr., MD HEMATOLOGY ORDERABLES E dited Performing Organization Address City/[facility]/ZIP Co de Phone Number [facility] [address] [place] [address] * (ABNORMAL) POC GLUCOSE (11/12/2007 3:11 AM CDT) GLUCOSE POC 140(H) 65 - 99 mg/dL [facility] Venous blood specimen (specimen) 11/12/2007 3:11 AM CDT 11/12/2007 3:11 AM CDT Jesusita Roland MD POINT OF CARE TESTING Final Result Performing Organization Address [facility]/ZIP Co de Phone Number [facility] [address] [place] [address] * (ABNORMAL) POC GLUCOSE (11/12/2007 2:08 AM CDT) GLUCOSE POC 137(H) 65 - 99 mg/dL [facility] Venous blood specimen (specimen) 11/12/2007 2:08 AM CDT 11/12/2007 2:08 AM CDT us Jesusita Roalnd MD POINT OF CARE TESTING Final Result Performing Organization Address [facility] de Phone Number [facility] [address] [place], [place] [address] * (ABNORMAL) POC GLUCOSE (11/12/2007 1:00 AM CDT) GLUCOSE POC 186(H) 65 - 99 mg/dL [facility] Venous blood specimen (specimen) 11/12/2007 1:00 AM CDT 11/12/2007 1:00 AM CDT us Jesusita Roland MD POINT OF CARE TESTING Final Result Performing Organization Address [facility] de Phone Number [facility] [address] [place], [place] [address] * (ABNORMAL) POC GLUCOSE (11/12/2007 12:19 AM CDT) GLUCOSE POC 218(H) 65 - 99 mg/dL [facility] Venous blood specimen (specimen) 11/12/2007 12:19 AM CDT 11/12/2007 12:19 AM CDT us Jesusita Roland MD POINT OF CARE TESTING Final Result Performing Organization Address [facility] de Phone Number [facility] [address] [place] [address] * POTASSIUM LEVEL (11/12/2007 12:12 AM CDT) POTASSIUM 4.8 3.5 - 4.9 mmol/L [facility] Blood specimen (specimen) 11/12/2007 12:12 AM CDT 11/12/2007 12:17 AM CDT Mary Arellano Jr., MD CHEMISTRY ORDERABLES Fi nal Result Performing Organization Address [facility]/ZIP Co de Phone Number [facility] [address] [place] [address] * (ABNORMAL) POC GLUCOSE (11/11/2007 11:07 PM CDT) GLUCOSE POC 169(H) 65 - 99 mg/dL [facility] Venous blood specimen (specimen) 11/11/2007 11:07 PM CDT 11/11/2007 11:07 PM CDT Jesusita Roland MD POINT OF CARE TESTING Final Result Performing Organization Address [facility] Co de Phone Number [facility] [address] [place] [address] * (ABNORMAL) POC GLUCOSE (11/11/2007 10:21 PM CDT) GLUCOSE POC 137(H) 65 - 99 mg/dL [facility] Venous blood specimen (specimen) 11/11/2007 10:21 PM CDT 11/11/2007 10:21 PM CDT Jesusita Roland MD POINT OF CARE TESTING Final Result Performing Organization Address [facility] Co de Phone Number [facility] [address] [place] [address] * (ABNORMAL) POC RT, BLOOD GASES (11/11/2007 10:01 PM CDT) PH ARTERIAL 7.37 7.35 - 7.45 [facility] BASE EXCESS ABG -1.6 -2.0 - 3.0 mmol/L [facility] COMMENT, GASES POC RN NOTIFIED [facility] HEMATOCRIT POC 46.0 40.0 - 48.0 % [facility] O2 SAT EST ABG POC 99 95 - 99 % [facility] POTASSIUM POC 5.3(H) 3.5 - 4.9 mmol/L [facility] PCO2 ARTERIAL 41 35 - 48 mm Hg [facility] FIO2 40 [facility] HCO3 ARTERIAL 24 22 - 26 mmol/L [facility] PATIENT'S TEMPERATURE 37.0 Degree C [facility] CALICUM IONIZED, WHOLE BLOOD 4.33(L) 4.76 - 5.16 mg/dL [facility] PEEP POC 5 [facility] PO2 ARTERIAL 137(H) 83 - 108 mm Hg [facility] SODIUM POC 131(L) 135 - 145 mmol/L [facility] OXYGEN MODE SIMV [facility] Blood specimen (specimen) 11/11/2007 10:01 PM CDT 11/11/2007 10:01 PM CDT Jesusita Roland MD CHEMISTRY ORDERABLES Final R esult Performing Organization Address City/[facility]/ZIP Co de Phone Number [facility] [address] [place] [address] * (ABNORMAL) POC GLUCOSE (11/11/2007 9:11 PM CDT) GLUCOSE POC 166(H) 65 - 99 mg/dL [facility] Venous blood specimen (specimen) 11/11/2007 9:11 PM CDT 11/11/2007 9:11 PM CDT Jesusita Roland MD POINT OF CARE TESTING Final Result [facility] [address] [place] [place] [address] * (ABNORMAL) POC GLUCOSE (11/11/2007 8:02 PM CDT) GLUCOSE POC 127(H) 65 - 99 mg/dL [facility] Venous blood specimen (specimen) 11/11/2007 8:02 PM CDT 11/11/2007 8:02 PM CDT Jesusita Roland MD POINT OF CARE TESTING Final Result Performing Organization Address [facility] Co de Phone Number [facility] [address] [place] [address] * (ABNORMAL) POTASSIUM LEVEL (11/11/2007 7:55 PM CDT) POTASSIUM 5.2(H) 3.5 - 4.9 mmol/L [facility] Comment: No significant hemolysis Blood specimen (specimen) 11/11/2007 7:55 PM CDT 11/11/2007 8:04 PM CDT Mary Arellano Jr., MD CHEMISTRY ORDERABLES Fi nal Result Performing Organization Address [facility] Co de Phone Number [facility] [address] [place] [address] * (ABNORMAL) POC RT, BLOOD GASES (11/11/2007 5:30 PM CDT) POTASSIUM POC 4.4 3.5 - 4.9 mmol/L [facility] PCO2 ARTERIAL 45 35 - 48 mm Hg [facility] FIO2 60 [facility] HCO3 ARTERIAL 25 22 - 26 mmol/L [facility] PATIENT'S TEMPERATURE 37.0 Degree C [facility] CALICUM IONIZED, WHOLE BLOOD 4.77 4.76 - 5.16 mg/dL [facility] PEEP POC 5 [facility] PO2 ARTERIAL 128(H) 83 - 108 mm Hg [facility] SODIUM POC 133(L) 135 - 145 mmol/L [facility] OXYGEN MODE SIMV/PSV [facility] PH ARTERIAL 7.36 7.35 - 7.45 [facility] BASE EXCESS ABG -0.4 -2.0 - 3.0 mmol/L [facility] COMMENT, GASES POC NOTIFIED [facility] HEMATOCRIT POC 43.0 40.0 - 48.0 % [facility] O2 SAT EST ABG POC 99 95 - 99 % [facility] Blood specimen (specimen) 11/11/2007 5:30 PM CDT 11/11/2007 5:30 PM CDT Result [facility] Jesusita Roland MD CHEMISTRY ORDERABLES Final R esult Performing Organization Address [facility]/ZIP Co de Phone Number [facility] [address] [place] [address] * (ABNORMAL) POC GLUCOSE (11/11/2007 5:23 PM CDT) GLUCOSE POC 140(H) 65 - 99 mg/dL [facility] Venous blood specimen (specimen) 11/11/2007 5:23 PM CDT 11/11/2007 5:23 PM CDT Jesusita Roland MD POINT OF CARE TESTING Final Result Performing Organization Address [facility] Co de Phone Number [facility] [address] [place] [address] * (ABNORMAL) PT AND APTT (11/11/2007 5:14 PM CDT) PROTIME 19.0(H) 12.7 - 15.1 Seconds [facility] INR 1.6(H) 0.9 - 1.1 [facility] Comment: INR Therapeutic Range: Adult: 2.0 [...] established. PTT 31.1 24.4 - 36.4 Seconds [facility] Comment: PTT Therapeutic Range: Heparin Level PTT (seconds) <0.10 units/mL <53 0.10 - 0.30 units/mL 53 - 67 0.30 - 0.70 units/mL* 67 - 95* 0.70 - 1.00 units/mL 95 - 116 *corresponds to therapeutic range for unfractionated heparin PROTIME COMMENT Slightly Hemolyzed [facility] PTT COMMENT Slightly Hemolyzed [facility] Blood specimen (specimen) 11/11/2007 5:14 PM CDT 11/11/2007 5:30 PM CDT Mary Arellano Jr., MD HEMATOLOGY ORDERABLES E dited Performing Organization Address City/[facility]/ZIP Co de Phone Number [facility] [address] [place] [address] * (ABNORMAL) MAGNESIUM LEVEL (11/11/2007 5:14 PM CDT) MAGNESIUM 2.9(H) 1.5 - 2.5 mg/dL [facility] Blood specimen (specimen) 11/11/2007 5:14 PM CDT 11/11/2007 5:30 PM CDT Mary Arellano Jr., MD CHEMISTRY ORDERABLES Fi nal Result Performing Organization Address City/[facility]/ZIP Co de Phone Number [facility] [address] [place] [address] * (ABNORMAL) CVR ONLY, CKMB/CK (11/11/2007 5:14 PM CDT) Pathologist [facility] CKMB 15.8(AA) <=6.7 ng/mL [facility] Comment: Results called to Mona at 11/11/07 5:58 PM and read back verified. CKMB INTERP See Below [facility] Comment: Elevated CKMB,Consistent with Myocardial Injury. CK 156 10 - 170 U/L [facility] CARDIAC RELATIVE INDEX N/A <=4.0 [facility] Blood specimen (specimen) 11/11/2007 5:14 PM CDT 11/11/2007 5:30 PM CDT Mary Arellano Jr., MD CHEMISTRY ORDERABLES Ed ited [facility] [address] [facility] [place] [address] * (ABNORMAL) BASIC METABOLIC PANEL (11/11/2007 5:14 PM CDT) Pathologist [facility] BUN 15 6 - 20 mg/dL [facility] CHLORIDE 106 96 - 108 mmol/L [facility] GLUCOSE 142(H) 65 - 99 mg/dL [facility] SODIUM 135 135 - 145 mmol/L [facility] CALCIUM 8.2(L) 8.4 - 10.2 mg/dL [facility] CO2 22 22 - 30 mmol/L [facility] CREATININE 0.87 0.67 - 1.17 mg/dL [facility] POTASSIUM 4.5 3.5 - 4.9 mmol/L [facility] Comment: Moderate hemolysis present. Can cause significant falsely elevated result. Clinical judgement necessary. Redraw if indicated. GFR, >60 >=60 mL/min/1. 7 sq meter [facility] GFR >60 >=60 mL/min/1. 7 sq meter [facility] Comment: Estimated GFR rate interpretative information for both Americans and non- Americans is available on the [facility] Intranet at: [email or web address] Select: Lab Policies and Procedures Select: Reference Ranges - GFR Blood specimen (specimen) 11/11/2007 5:14 PM CDT 11/11/2007 5:30 PM CDT Mary Arellano Jr., MD CHEMISTRY ORDERABLES Ed ited [facility] [address] [place], [place] [address] * (ABNORMAL) CBC WITH DIFFERENTIAL (11/11/2007 5:14 PM CDT) HEMATOCRIT 45.6 40.0 - 48.0 % [facility] RDW-STDEV 46.7 37.1 - 48.7 fL [facility] RBC 4.64 4.50 - 5.40 M/uL [facility] MCHC 33.8 31.5 - 35.5 % [facility] MCV 98.3 82.0 - 99.0 fL [facility] HEMOGLOBIN 15.4 13.6 - 16.5 g/dL [facility] RDW 13.0 11.5 - 14.5 % [facility] WBC 21.8(H) 4.0 - 9.8 K/uL [facility] MCH 33.2(H) 27.2 - 32.6 pg [facility] MPV 11.7 9.3 - 12.4 fL [facility] PLATELETS 91(L) 140 - 350 K/uL [facility] PLATELET EST. Consistent w/ count Normal [facility] BASOPHILS ABSOLUTE 0.00 0.00 - 0.20 K/uL [facility] EOSINOPHILS 0 0 - 7 % [facility] MONOCYTE ABSOLUTE 1.31(H) 0.10 - 1.30 K/uL [facility] RBC MORPHOLOGY Normal Normal [facility] LYMPHOCYTES 1(L) 16 - 45 % [facility] NEUTROPHIL ABSOLUTE 20.27(H) 1.90 - 7.00 K/uL [facility] NEUTROPHILS, SEG 88(H) 45 - 70 % [facility] BASOPHILS 0 0 - 2 % [facility] EOSINOPHIL ABSOLUTE 0.00 0.00 - 0.70 K/uL [facility] MONOCYTES 6 3 - 13 % [facility] REVIEWED ON SMEAR Plt OK by Smear Rev. [facility] LYMPHOCYTE ABSOLUTE 0.22(L) 0.70 - 4.50 K/uL [facility] BANDS 5 0 - 5 % [facility] Blood specimen (specimen) 11/11/2007 5:14 PM CDT 11/11/2007 5:30 PM CDT us Mary Arellano Jr., MD HEMATOLOGY ORDERABLES E dited [facility] [address] [place] [address] * XR CHEST PA OR AP (11/11/2007 5:14 PM CDT) Anatomical Region Laterality Modality Chest Other 11/11/2007 5:14 PM CDT Narrative 11/11/2007 11:27 PM CDT [facility] [address] [place], [place] [address] Admit Date: 11/02/2007 PATRICIA DUN[place] Sex: M Admit Prov: JESUSITA ROLAND Date: 1945 Primary Care Prov: MERYL FRIEDMAN CMRN: [id number] Room: [address] [place] [address] SSN: [id number] IMAGING SERVICES Ordering Prov: N/A Accession Number: [id number] Interpretation CHEST, AP PORTABLE, 11/11/2007, 1725 HOURS History: Cardiac surgery. Findings: Sternal wires and mediastinal drains indicate recent cardiac surgery. Prosthetic heart valve is present. Endotracheal tube ends at the clavicles. Right internal jugular Mullen-Rica catheter ends in the right pulmonary artery. Right lung is clear. Left basilar atelectasis and/or small left effusion are present. There is no pneumothorax. . Dictated by: CONRADO SCHROEDER 11/11/2007 17:39 Electronically signed by: CONRADO SCHROEDER 11/11/2007 23:27 Transcribed: 11/11/2007 17:41 SMM Procedure Note Conrado Schroeder MD - 11/11/2007 [facility] [address], [place] [address] Admit Date: 11/02/2007 PATRICIA DUNHAM Sex: M Admit Prov: JESUSITA ROLAND Date: 1945 Primary Care Prov: MERYL FRIEDMAN CMRN: [id number] Room: [address] [place] [address] SSN: [id number] IMAGING SERVICES Ordering Prov: N/A Interpretation CHEST, AP PORTABLE, 11/11/2007, 1725 HOURS History: Cardiac surgery. Findings: Sternal wires and mediastinal drains indicate recentcardiac surgery. Prosthetic heart valve is present. Endotracheal tube ends atthe clavicles. Right internal jugular Mullen-Rica catheter ends in theright pulmonary artery. Right [...] ARTERIAL 427(H) 83 - 108 mm Hg [facility] SODIUM POC 133(L) 135 - 145 mmol/L [facility] TCO2, ABG POC 26(H) 19 - 24 mmol/L [facility] PH ARTERIAL 7.36 7.35 - 7.45 [facility] BASE EXCESS ABG -1.2 -2.0 - 3.0 mmol/L [facility] HEMATOCRIT POC 35.0(L) 40.0 - 48.0 % [facility] O2 SAT EST ABG POC 100(H) 95 - 99 % [facility] LACTIC ACID 2.1 0.5 - 2.2 mmol/L [facility] POTASSIUM POC 4.3 3.5 - 4.9 mmol/L [facility] PCO2 ARTERIAL 43 35 - 48 mm Hg [facility] HCO3 ARTERIAL 24 22 - 26 mmol/L [facility] PATIENT'S TEMPERATURE 37.0 Degree C [facility] CALICUM IONIZED, WHOLE BLOOD 5.05 4.76 - 5.16 mg/dL [facility] GLUCOSE POC 176(H) 65 - 99 mg/dL [facility] Blood specimen (specimen) 11/11/2007 4:44 PM CDT 11/11/2007 4:44 PM CDT Jesusita Roland MD CHEMISTRY ORDERABLES Final R esult [facility] [address] [place] [id number] * (ABNORMAL) POC RT, BLOOD GASES (11/11/2007 4:17 PM CDT) GLUCOSE POC 200(H) 65 - 99 mg/dL [facility] O2 SAT EST ABG POC 100(H) 95 - 99 % [facility] SODIUM POC 132(L) 135 - 145 mmol/L [facility] PH ARTERIAL 7.34(L) 7.35 - 7.45 [facility] TCO2, ABG POC 25(H) 19 - 24 mmol/L [facility] COMMENT, GASES POC POST BYPASS [facility] PATIENT'S TEMPERATURE 37.0 Degree C [facility] POTASSIUM POC 4.6 3.5 - 4.9 mmol/L [facility] PCO2 ARTERIAL 44 35 - 48 mm Hg [facility] LACTIC ACID 2.2 0.5 - 2.2 mmol/L [facility] CALICUM IONIZED, WHOLE BLOOD 5.21(H) 4.76 - 5.16 mg/dL [facility] BASE EXCESS ABG -2.1(L) -2.0 - 3.0 mmol/L [facility] PO2 ARTERIAL 332(H) 83 - 108 mm Hg [facility] HCO3 ARTERIAL 24 22 - 26 mmol/L [facility] HEMATOCRIT POC 34.0(L) 40.0 - 48.0 % [facility] Blood specimen (specimen) 11/11/2007 4:17 PM CDT 11/11/2007 4:17 PM CDT us Jesusita Roland MD CHEMISTRY ORDERABLES Final R esult [facility] [address] [place] [address] * (ABNORMAL) POC RT, BLOOD GASES (11/11/2007 3:56 PM CDT) PATIENT'S TEMPERATURE 37.0 Degree C [facility] LACTIC ACID 2.5(H) 0.5 - 2.2 mmol/L [facility] CALICUM IONIZED, WHOLE BLOOD 4.49(L) 4.76 - 5.16 mg/dL [facility] PO2 ARTERIAL 178(H) 83 - 108 mm Hg [facility] SODIUM POC 132(L) 135 - 145 mmol/L [facility] PH ARTERIAL 7.37 7.35 - 7.45 [facility] BASE EXCESS ABG 0.5 -2.0 - 3.0 mmol/L [facility] HEMATOCRIT POC 29.0(L) 40.0 - 48.0 % [facility] GLUCOSE POC 188(H) 65 - 99 mg/dL [facility] O2 SAT EST ABG POC 100(H) 95 - 99 % [facility] POTASSIUM POC 5.4(H) 3.5 - 4.9 mmol/L [facility] TCO2, ABG POC 27(H) 19 - 24 mmol/L [facility] PCO2 ARTERIAL 45 35 - 48 mm Hg [facility] HCO3 ARTERIAL 26 22 - 26 mmol/L [facility] COMMENT, GASES POC ON BYPASS [facility] Blood specimen (specimen) 11/11/2007 3:56 PM CDT 11/11/2007 3:56 PM CDT us Jesusita Roland MD CHEMISTRY ORDERABLES Final R esult [facility] [address] [place] [address] * (ABNORMAL) POC RT, BLOOD GASES (11/11/2007 3:46 PM CDT) PATIENT'S TEMPERATURE 37.0 Degree C [facility] LACTIC ACID 2.4(H) 0.5 - 2.2 mmol/L [facility] CALICUM IONIZED, WHOLE BLOOD 4.57(L) 4.76 - 5.16 mg/dL [facility] PO2 ARTERIAL 315(H) 83 - 108 mm Hg [facility] SODIUM POC 129(L) 135 - 145 mmol/L [facility] PH ARTERIAL 7.30(L) 7.35 - 7.45 [facility] BASE EXCESS ABG -4.6(L) -2.0 - 3.0 mmol/L [facility] HEMATOCRIT POC 29.0(L) 40.0 - 48.0 % [facility] GLUCOSE POC 196(H) 65 - 99 mg/dL [facility] O2 SAT EST ABG POC 100(H) 95 - 99 % [facility] POTASSIUM POC 5.3(H) 3.5 - 4.9 mmol/L [facility] TCO2, ABG POC 23 19 - 24 mmol/L [facility] PCO2 ARTERIAL 44 35 - 48 mm Hg [facility] HCO3 ARTERIAL 22 22 - 26 mmol/L [facility] COMMENT, GASES POC ON BYPASS [facility] Blood specimen (specimen) 11/11/2007 3:46 PM CDT 11/11/2007 3:46 PM CDT us Jesusita Roland MD CHEMISTRY ORDERABLES Final R esult [facility] [address] [place] [address] * (ABNORMAL) POC RT, BLOOD GASES (11/11/2007 3:11 PM CDT) GLUCOSE POC 204(H) 65 - 99 mg/dL [facility] PCO2 ARTERIAL 39 35 - 48 mm Hg [facility] POTASSIUM POC 5.6(H) 3.5 - 4.9 mmol/L [facility] PCO2 TEMP CORRECT 35 mm Hg [facility] TCO2, ABG POC 24 19 - 24 mmol/L [facility] PATIENT'S TEMPERATURE 34.5 Degree C [facility] HCO3 ARTERIAL 23 22 - 26 mmol/L [facility] COMMENT, GASES POC ON BYPASS [facility] PO2 ARTERIAL 239(H) 83 - 108 mm Hg [facility] PO2 TEMP CORRECT 227 mm Hg [facility] LACTIC ACID 1.5 0.5 - 2.2 mmol/L [facility] CALICUM IONIZED, WHOLE BLOOD 4.45(L) 4.76 - 5.16 mg/dL [facility] PH ARTERIAL 7.38 7.35 - 7.45 [facility] PH TEMP CORRECT 7.42 [facility] SODIUM POC 129(L) 135 - 145 mmol/L [facility] O2 SAT EST ABG POC 100(H) 95 - 99 % [facility] HEMATOCRIT POC 32.0(L) 40.0 - 48.0 % [facility] BASE EXCESS ABG -1.8 -2.0 - 3.0 mmol/L [facility] Blood specimen (specimen) 11/11/2007 3:11 PM CDT 11/11/2007 3:11 PM CDT us Jesusita Roland MD CHEMISTRY ORDERABLES Final R esult [facility] [address] [place] [address] * (ABNORMAL) POC RT, BLOOD GASES (11/11/2007 2:45 PM CDT) O2 SAT EST ABG POC 100(H) 95 - 99 % [facility] BASE EXCESS ABG -0.6 -2.0 - 3.0 mmol/L [facility] GLUCOSE POC 169(H) 65 - 99 mg/dL [facility] HEMATOCRIT POC 30.0(L) 40.0 - 48.0 % [facility] PCO2 ARTERIAL 55(H) 35 - 48 mm Hg [facility] PCO2 TEMP CORRECT 49 mm Hg [facility] TCO2, ABG POC 28(H) 19 - 24 mmol/L [facility] POTASSIUM POC 5.5(H) 3.5 - 4.9 mmol/L [facility] PATIENT'S TEMPERATURE 34.5 Degree C [facility] COMMENT, GASES POC ON BYPASS [facility] HCO3 ARTERIAL 26 22 - 26 mmol/L [facility] PO2 ARTERIAL 261(H) 83 - 108 mm Hg [facility] CALICUM IONIZED, WHOLE BLOOD 4.53(L) 4.76 - 5.16 mg/dL [facility] PO2 TEMP CORRECT 249 mm Hg [facility] LACTIC ACID 1.2 0.5 - 2.2 mmol/L [facility] PH ARTERIAL 7.29(L) 7.35 - 7.45 [facility] PH TEMP CORRECT 7.32 [facility] SODIUM POC 128(L) 135 - 145 mmol/L [facility] Blood specimen (specimen) 11/11/2007 2:45 PM CDT 11/11/2007 2:45 PM CDT Jesusita Roland MD CHEMISTRY ORDERABLES Final R esult Performing Organization Address City/[facility]/ZIP Co de Phone Number [facility] [address] [place] [address] * MISCELLANEOUS CULTURE (11/11/2007 2:45 PM CDT) PRELIMINARY REPORT No growth 48 hours [facility] FINAL REPORT No growth 3 days [facility] 11/11/2007 2:45 PM CDT 11/11/2007 5:51 PM CDT Mary Arellano Jr., MD MICROBIOLOGY - GENERAL ORDERABLES Final Result Performing Organization Address [facility] Co de Phone Number [facility] [address] [facility] [place] [address] * PATHOLOGY (11/11/2007 2:39 PM CDT) FINAL REPORT [facility] [address] [place], [place] [address] Patient: PATRICIA DUNHAM : 1945 Procedure Date: 11/11/2007 Accession Date: 11/12/2007 Case No: [id number] Ordering Dr: MARY ARELLANO Case types AW, BW, FW, NW and SH are performed by [facility] [place], [place] SURGICAL PATHOLOGY & NON-GYNECOLOGIC CYTOPATHOLOGY REPORT [...] valve cusps. The tissue is severely calcified. Administrative Office Specialist sections are submitted in cassettes A1-2 for decalcification. Received in the second container, additionally labeled ascending aorta, is a 5.5-cm long by 4-cm diameter tubular piece of yellow-tatum fibromembranous tissue consistent with aorta. A dissecting aneurysm is not identified. The intimal surface is remarkable for a fatty streak. There is no evidence of calcification. Administrative Office Specialist sections are submitted in cassette B1. KLA/DRC 11.12.2007 12:50 pm Microscopic: The slides are labeled Patricia Aniketpineda and [id number]. The aortic valve tissue shows areas of [...] CDT) PCO2 TEMP CORRECT 34 mm Hg [facility] PATIENT'S TEMPERATURE 34.5 Degree C [facility] PO2 ARTERIAL 346(H) 83 - 108 mm Hg [facility] SODIUM POC 133(L) 135 - 145 mmol/L [facility] GLUCOSE POC 117(H) 65 - 99 mg/dL [facility] PH ARTERIAL 7.42 7.35 - 7.45 [facility] PO2 TEMP CORRECT 333 mm Hg [facility] TCO2, ABG POC 26(H) 19 - 24 mmol/L [facility] POTASSIUM POC 5.0(H) 3.5 - 4.9 mmol/L [facility] HEMATOCRIT POC 31.0(L) 40.0 - 48.0 % [facility] CALICUM IONIZED, WHOLE BLOOD 4.57(L) 4.76 - 5.16 mg/dL [facility] O2 SAT EST ABG POC 100(H) 95 - 99 % [facility] HCO3 ARTERIAL 25 22 - 26 mmol/L [facility] COMMENT, GASES POC ON BYPASS [facility] PCO2 ARTERIAL 38 35 - 48 mm Hg [facility] BASE EXCESS ABG 0.2 -2.0 - 3.0 mmol/L [facility] LACTIC ACID 1.5 0.5 - 2.2 mmol/L [facility] PH TEMP CORRECT 7.46 [facility] Blood specimen (specimen) 11/11/2007 2:14 PM CDT 11/11/2007 2:14 PM CDT us Jesusita Roland MD CHEMISTRY ORDERABLES Final R esult [facility] [address] [facility] [place] [address] * (ABNORMAL) POC RT, BLOOD GASES (11/11/2007 2:07 PM CDT) PCO2 VENOUS 46 38 - 50 mm Hg [facility] PCO2 TEMP CORRECT 40 mm Hg [facility] TCO2, MVBG POC 27(H) 22 - 26 mmol/L [facility] POTASSIUM POC 5.4(H) 3.5 - 4.9 mmol/L [facility] PATIENT'S TEMPERATURE 34.0 Degree C [facility] COMMENT, GASES POC ON BYPASS [facility] HCO3 MIXED VENOUS 26 22 - 29 mmol/L [facility] PO2 MVBG 58(H) 25 - 40 mm Hg [facility] CALICUM IONIZED, WHOLE BLOOD 4.57(L) 4.76 - 5.16 mg/dL [facility] PO2 TEMP CORRECT 47 mm Hg [facility] LACTIC ACID 1.6 0.5 - 2.2 mmol/L [facility] PH MVBG 7.36 7.32 - 7.43 [facility] PH TEMP CORRECT 7.40 [facility] SODIUM POC 134(L) 135 - 145 mmol/L [facility] O2 SAT EST MVBG POC 89(H) 40 - 70 % [facility] BASE EXCESS VENOUS 0.3 -2.0 - 3.0 mmol/L [facility] GLUCOSE POC 110(H) 65 - 99 mg/dL [facility] HEMATOCRIT POC 30.0(L) 40.0 - 48.0 % [facility] Blood specimen (specimen) 11/11/2007 2:07 PM CDT 11/11/2007 2:07 PM CDT us Jesusita Roland MD CHEMISTRY ORDERABLES Final R esult [facility] [address] [place] [address] * (ABNORMAL) POC RT, BLOOD GASES (11/11/2007 1:50 PM CDT) PATIENT'S TEMPERATURE 37.0 Degree C [facility] GLUCOSE POC 116(H) 65 - 99 mg/dL [facility] CALICUM IONIZED, WHOLE BLOOD 4.53(L) 4.76 - 5.16 mg/dL [facility] PO2 ARTERIAL 476(H) 83 - 108 mm Hg [facility] TCO2, ABG POC 27(H) 19 - 24 mmol/L [facility] SODIUM POC 134(L) 135 - 145 mmol/L [facility] PH ARTERIAL 7.39 7.35 - 7.45 [facility] BASE EXCESS ABG 0.8 -2.0 - 3.0 mmol/L [facility] HEMATOCRIT POC 40.0 40.0 - 48.0 % [facility] O2 SAT EST ABG POC 100(H) 95 - 99 % [facility] POTASSIUM POC 4.2 3.5 - 4.9 mmol/L [facility] LACTIC ACID 1.3 0.5 - 2.2 mmol/L [facility] PCO2 ARTERIAL 43 35 - 48 mm Hg [facility] HCO3 ARTERIAL 26 22 - 26 mmol/L [facility] Blood specimen (specimen) 11/11/2007 1:50 PM CDT 11/11/2007 1:50 PM CDT us Jesusita Roland MD CHEMISTRY ORDERABLES Final R esult [facility] [address] [facility] [place] [address] * (ABNORMAL) POC RT, BLOOD GASES (11/11/2007 12:52 PM CDT) COMMENT, GASES POC POST INDUCTION [facility] HCO3 ARTERIAL 27(H) 22 - 26 mmol/L [facility] PATIENT'S TEMPERATURE 37.0 Degree C [facility] CALICUM IONIZED, WHOLE BLOOD 4.57(L) 4.76 - 5.16 mg/dL [facility] LACTIC ACID 0.9 0.5 - 2.2 mmol/L [facility] PO2 ARTERIAL 487(H) 83 - 108 mm Hg [facility] SODIUM POC 134(L) 135 - 145 mmol/L [facility] PH ARTERIAL 7.40 7.35 - 7.45 [facility] BASE EXCESS ABG 1.4 -2.0 - 3.0 mmol/L [facility] GLUCOSE POC 119(H) 65 - 99 mg/dL [facility] HEMATOCRIT POC 47.0 40.0 - 48.0 % [facility] O2 SAT EST ABG POC 100(H) 95 - 99 % [facility] TCO2, ABG POC 28(H) 19 - 24 mmol/L [facility] POTASSIUM POC 4.0 3.5 - 4.9 mmol/L [facility] PCO2 ARTERIAL 43 35 - 48 mm Hg [facility] Blood specimen (specimen) 11/11/2007 12:52 PM CDT 11/11/2007 12:52 PM CDT Jesusita Roland MD CHEMISTRY ORDERABLES Final R esult Performing Organization Address City/[facility]/ZIP Co de Phone Number [facility] [address] [place] [address] * (ABNORMAL) POC GLUCOSE (11/11/2007 7:03 AM CDT) GLUCOSE POC 116(H) 65 - 99 mg/dL [facility] Venous blood specimen (specimen) 11/11/2007 7:03 AM CDT 11/11/2007 7:03 AM CDT us Jesusita Roland MD POINT OF CARE TESTING Final Result [facility] [address] [place] [address] * (ABNORMAL) POC GLUCOSE (11/10/2007 8:15 PM CDT) GLUCOSE POC 131(H) 65 - 99 mg/dL [facility] Venous blood specimen (specimen) 11/10/2007 8:15 PM CDT 11/10/2007 8:15 PM CDT Jesusita Roland MD POINT OF CARE TESTING Final Result [facility] [address] [place] [address] * (ABNORMAL) POC GLUCOSE (11/10/2007 5:28 PM CDT) GLUCOSE POC 100(H) 65 - 99 mg/dL [facility] Venous blood specimen (specimen) 11/10/2007 5:28 PM CDT 11/10/2007 5:28 PM CDT Jesusita Roland MD POINT OF CARE TESTING Final Result Performing Organization Address City/[facility]/ZIP Co de Phone Number [facility] [address] [place] [address] * (ABNORMAL) POC GLUCOSE (11/10/2007 11:41 AM CDT) GLUCOSE POC 184(H) 65 - 99 mg/dL [facility] Venous blood specimen (specimen) 11/10/2007 11:41 AM CDT 11/10/2007 11:41 AM CDT us Jesusita Roland MD POINT OF CARE TESTING Final Result Performing Organization Address City/[facility]/ZIP Co de Phone Number [facility] [address] [place] [address] * (ABNORMAL) POC GLUCOSE (11/10/2007 7:36 AM CDT) GLUCOSE POC 108(H) 65 - 99 mg/dL [facility] Venous blood specimen (specimen) 11/10/2007 7:36 AM CDT 11/10/2007 7:36 AM CDT us Jesusita Roland MD POINT OF CARE TESTING Final Result Performing Organization Address City/[facility]/ZIP Co de Phone Number [facility] [address] [place] [address] * (ABNORMAL) POC GLUCOSE (11/09/2007 8:15 PM CDT) GLUCOSE POC 170(H) 65 - 99 mg/dL [facility] Venous blood specimen (specimen) 11/09/2007 8:15 PM CDT 11/09/2007 8:15 PM CDT Jesusita Roland MD POINT OF CARE TESTING Final Result Performing Organization Address [facility] Co de Phone Number [facility] [address] [place] [place] [address] * (ABNORMAL) POC GLUCOSE (11/09/2007 5:51 PM CDT) GLUCOSE POC 151(H) 65 - 99 mg/dL [facility] Venous blood specimen (specimen) 11/09/2007 5:51 PM CDT 11/09/2007 5:51 PM CDT us Jesusita Roland MD POINT OF CARE TESTING Final Result Performing Organization Address City/[facility]/ZIP Co de Phone Number [facility] [address] [place] [address] * (ABNORMAL) POC GLUCOSE (11/09/2007 11:34 AM CDT) GLUCOSE POC 146(H) 65 - 99 mg/dL [facility] Venous blood specimen (specimen) 11/09/2007 11:34 AM CDT 11/09/2007 11:34 AM CDT Jesusita Roland MD POINT OF CARE TESTING Final Result Performing Organization Address City/[facility]/ZIP Co de Phone Number [facility] [address] [place] [address] * (ABNORMAL) POC GLUCOSE (11/09/2007 8:35 AM CDT) GLUCOSE POC 111(H) 65 - 99 mg/dL [facility] Venous blood specimen (specimen) 11/09/2007 8:35 AM CDT 11/09/2007 8:35 AM CDT Jesusita Roland MD POINT OF CARE TESTING Final Result Performing Organization Address [facility] Co de Phone Number [facility] [address] [place] [address] * XR CHEST PA AND LATERAL (11/09/2007 7:32 AM CDT) Anatomical Region Laterality Modality Chest Other 11/09/2007 7:32 AM CDT Narrative 11/09/2007 10:56 AM CDT Ordered by SOFYA PRINCE [facility] [address] [place], [place] [address] Admit Date: 11/02/2007 PATRICIA DUNHAM Sex: M Admit Prov: JESUSITA ROLAND Date: 1945 Primary Care Prov: MERYL FRIEDMAN CMRN: [id number] Room: [address] [place] [address] SSN: [id number] IMAGING SERVICES Ordering Prov: N/A Accession Number: [id number] Interpretation Exam: Chest x-ray PA and lateral. [...] Rios - 11/09/2007 Ordered by SOFYA PRINCE [facility] [address] [place], [place] [address] Admit Date: 11/02/2007 PATRICIA DUNHAM Sex: M Admit Prov: JESUSITA ROLAND Date: 1945 Primary Care Prov: MERYL FRIEDMAN CMRN: [id number] Room: [address] [place] [address] SSN: [id number] IMAGING SERVICES Ordering Prov: N/A Interpretation Exam: [...] DIGOXIN LEVEL 0.7(L) 0.8 - 2.0 ng/mL [facility] Comment:Digoxin Toxic Level = >2.0 ng/mL Blood specimen (specimen) 11/09/2007 5:45 AM CDT 11/09/2007 6:23 AM CDT us Sofya HAMM CHEMISTRY ORDERABLES Final Res ult [facility] [address] [place] [address] * (ABNORMAL) COMPREHENSIVE METABOLIC PANEL (11/09/2007 5:45 AM CDT) CO2 25 22 - 30 mmol/L [facility] TOTAL PROTEIN 6.5 6.3 - 8.6 g/dL [facility] SODIUM 136 135 - 145 mmol/L [facility] POTASSIUM 3.9 3.5 - 4.9 mmol/L [facility] GLUCOSE 115(H) 65 - 99 mg/dL [facility] AST 28 12 - 38 U/L [facility] BUN 18 6 - 20 mg/dL [facility] CALCIUM 8.4 8.4 - 10.2 mg/dL [facility] ALBUMIN 3.6 3.4 - 4.8 g/dL [facility] CHLORIDE 102 96 - 108 mmol/L [facility] CREATININE 0.98 0.67 - 1.17 mg/dL [facility] ALT 35 0 - 41 U/L [facility] ALKALINE PHOSPHATASE 44 40 - 129 U/L [facility] BILIRUBIN TOTAL 0.6 0.2 - 1.0 mg/dL [facility] GFR, >60 >=60 mL/min/1. 7 sq meter [facility] GFR >60 >=60 mL/min/1. 7 sq meter [facility] Comment: Estimated GFR rate interpretative information for both Americans and non- Americans is available on the [facility] Intranet at: [email or web address] Select: Lab Policies and Procedures Select: Reference Ranges - GFR Blood specimen (specimen) 11/09/2007 5:45 AM CDT 11/09/2007 6:23 AM CDT Sofya HAMM CHEMISTRY ORDERABLES Edited [facility] [address] [facility] [address] [place] [id number] * (ABNORMAL) CBC WITH DIFFERENTIAL (11/09/2007 5:45 AM CDT) WBC 9.8 4.0 - 9.8 K/uL [facility] MCH 32.9(H) 27.2 - 32.6 pg [facility] MPV 11.3 9.3 - 12.4 fL [facility] HEMATOCRIT 49.5(H) 40.0 - 48.0 % [facility] RDW-STDEV 47.2 37.1 - 48.7 fL [facility] RBC 5.02 4.50 - 5.40 M/uL [facility] MCHC 33.3 31.5 - 35.5 % [facility] MCV 98.6 82.0 - 99.0 fL [facility] PLATELETS 172 140 - 350 K/uL [facility] HEMOGLOBIN 16.5 13.6 - 16.5 g/dL [facility] RDW 13.1 11.5 - 14.5 % [facility] LYMPHOCYTE ABSOLUTE 1.84 0.70 - 4.50 K/uL [facility] BASOPHILS 0 0 - 2 % [facility] BASOPHILS ABSOLUTE 0.03 0.00 - 0.20 K/uL [facility] MONOCYTES 12 3 - 13 % [facility] MONOCYTE ABSOLUTE 1.17 0.10 - 1.30 K/uL [facility] NEUTROPHILS 67 45 - 70 % [facility] NEUTROPHIL ABSOLUTE 6.50 1.90 - 7.00 K/uL [facility] [facility] EOSINOPHILS 2 0 - 7 % [facility] EOSINOPHIL ABSOLUTE 0.21 0.00 - 0.70 K/uL [facility] LYMPHOCYTES 19 16 - 45 % [facility] Blood specimen (specimen) 11/09/2007 5:45 AM CDT 11/09/2007 6:23 AM CDT Sofya HAMM HEMATOLOGY ORDERABLES Edited INTERFACE SYSTEM Refer to clinic/hospital department [facility] [address] [place] [address] * (ABNORMAL) URINALYSIS (11/09/2007 4:10 AM CDT) LEUKOCYTE ESTERASE UA Negative Negative [facility] RBC UA 1 0 - 3 /HPF [facility] SPECIFIC GRAVITY UA 1.044(H) 1.001 - 1.035 [facility] Comment: Results confirmed by 2nd methodology. BLOOD UA Negative Negative [facility] GLUCOSE UA 3+(A) Negative [facility] Comment: Verified by repeat analysis. COLOR UA Yellow [facility] NITRITE UA Negative Negative [facility] UROBILINOGEN UA 4(H) <=1 mg/dL [facility] Comment: Verified by repeat analysis. EPITHELIAL CELLS, URINE 0-2 /HPF [facility] PH UA 6.0 5.0 - 8.0 [facility] KETONES UA 1+(A) Negative [facility] WBC UA 1 0 - 3 /HPF [facility] CLARITY UA Clear Clear [facility] PROTEIN UA Trace(A) Negative [facility] BILIRUBIN UA Negative Negative [facility] 11/09/2007 4:10 AM CDT 11/09/2007 4:36 AM CDT us James Hopkins MD URINE ORDERABLES Final Result Performing Organization Address [facility] Co de Phone Number [facility] [address] [place] [address] * URINALYSIS WITH REFLEX CULTURE (11/09/2007 4:10 AM CDT) URINE CULTURE ORDER Not indicated [facility] Comment: Criteria for a reflex culture [...] URINE ORDERABLES Final Result Performing Organization Address [facility] Co de Phone Number [facility] [address] [place] [address] * (ABNORMAL) POC GLUCOSE (11/08/2007 8:21 PM CDT) GLUCOSE POC 142(H) 65 - 99 mg/dL [facility] Venous blood specimen (specimen) 11/08/2007 8:21 PM CDT 11/08/2007 8:21 PM CDT Jesusita Roland MD POINT OF CARE TESTING Final Result Performing Organization Address [facility] Co de Phone Number [facility] [address] [address] * (ABNORMAL) POC GLUCOSE (11/08/2007 4:56 PM CDT) GLUCOSE POC 100(H) 65 - 99 mg/dL [facility] Venous blood specimen (specimen) 11/08/2007 4:56 PM CDT 11/08/2007 4:56 PM CDT us Jesusita Roland MD POINT OF CARE TESTING Final Result Performing Organization Address City/[facility]/ZIP Co de Phone Number [facility] [address] [address] * (ABNORMAL) POC GLUCOSE (11/08/2007 11:39 AM CDT) GLUCOSE POC 112(H) 65 - 99 mg/dL [facility] Venous blood specimen (specimen) 11/08/2007 11:39 AM CDT 11/08/2007 11:39 AM CDT us Jesusita Roland MD POINT OF CARE TESTING Final Result Performing Organization Address [facility]/ZIP Co de Phone Number [facility] [address] [address] * POC GLUCOSE (11/08/2007 7:22 AM CDT) GLUCOSE POC 93 65 - 99 mg/dL [facility] Venous blood specimen (specimen) 11/08/2007 7:22 AM CDT 11/08/2007 7:22 AM CDT us Jesusita Roland MD POINT OF CARE TESTING Final Result Performing Organization Address City/[facility]/ZIP Co de Phone Number [facility] [address] [address] * (ABNORMAL) POC GLUCOSE (11/07/2007 8:42 PM CDT) COMMENT, GLU POC Notified RN [facility] GLUCOSE POC 149(H) 65 - 99 mg/dL [facility] Venous blood specimen (specimen) 11/07/2007 8:42 PM CDT 11/07/2007 8:42 PM CDT us Jesusita Roland MD POINT OF CARE TESTING Final Result Performing Organization Address City/[facility]/ZIP Co de Phone Number [facility] [address] [place] [address] * (ABNORMAL) POC GLUCOSE (11/07/2007 4:44 PM CDT) GLUCOSE POC 137(H) 65 - 99 mg/dL [facility] Venous blood specimen (specimen) 11/07/2007 4:44 PM CDT 11/07/2007 4:44 PM CDT us Jesusita Roland MD POINT OF CARE TESTING Final Result Performing Organization Address [facility] Co de Phone Number [facility] [address] [place] [address] * POC GLUCOSE (11/07/2007 11:38 AM CDT) GLUCOSE POC 84 65 - 99 mg/dL [facility] Venous blood specimen (specimen) 11/07/2007 11:38 AM CDT 11/07/2007 11:38 AM CDT us Jesusita Roland MD POINT OF CARE TESTING Final Result Performing Organization Address City/[facility] Co de Phone Number [facility] [address] [place] [address] * DIGOXIN LEVEL (11/07/2007 9:18 AM CDT) DIGOXIN LEVEL 1.4 0.8 - 2.0 ng/mL [facility] Comment:Digoxin Toxic Level = >2.0 ng/mL Blood specimen (specimen) 11/07/2007 9:18 AM CDT 11/07/2007 9:36 AM CDT Domingo Teran MD CHEMISTRY ORDERABLES Final R esult Performing Organization Address City/[facility] Co de Phone Number [facility] [address] [address] * (ABNORMAL) PROTIME-INR (11/07/2007 9:18 AM CDT) PROTIME 15.4(H) 12.7 - 15.1 Seconds [facility] INR 1.2(H) 0.9 - 1.1 [facility] Comment: INR Therapeutic Range: Adult: 2.0 [...] HEMATOLOGY ORDERABLES Final Result Performing Organization Address City/[facility]/ZIP Co de Phone Number [facility] [address] [place] [address] * (ABNORMAL) BASIC METABOLIC PANEL (11/07/2007 9:18 AM CDT) CREATININE 1.00 0.67 - 1.17 mg/dL [facility] POTASSIUM 4.1 3.5 - 4.9 mmol/L [facility] BUN 15 6 - 20 mg/dL [facility] CHLORIDE 102 96 - 108 mmol/L [facility] GLUCOSE 186(H) 65 - 99 mg/dL [facility] SODIUM 139 135 - 145 mmol/L [facility] CALCIUM 9.1 8.4 - 10.2 mg/dL [facility] CO2 27 22 - 30 mmol/L [facility] GFR, >60 >=60 mL/min/1. 7 sq meter [facility] GFR >60 >=60 mL/min/1. 7 sq meter [facility] Comment: Estimated GFR rate interpretative information for both Americans and non- Americans is available on the [facility] Intranet at: [email or web address] Select: Lab Policies and Procedures Select: Reference Ranges - GFR Blood specimen (specimen) 11/07/2007 9:18 AM CDT 11/07/2007 9:36 AM CDT Domingo Teran MD CHEMISTRY ORDERABLES Edited [facility] [address] [place] [address] * POC GLUCOSE (11/07/2007 7:22 AM CDT) GLUCOSE POC 87 65 - 99 mg/dL [facility] Venous blood specimen (specimen) 11/07/2007 7:22 AM CDT 11/07/2007 7:22 AM CDT Jesusita Roland MD POINT OF CARE TESTING Final Result Performing Organization Address City/[facility]/ZIP Co de Phone Number [facility] [address] [place] [address] * POC GLUCOSE (11/06/2007 8:53 PM CDT) GLUCOSE POC 93 65 - 99 mg/dL [facility] Venous blood specimen (specimen) 11/06/2007 8:53 PM CDT 11/06/2007 8:53 PM CDT Jesusita Roland MD POINT OF CARE TESTING Final Result [facility] [address] [place] [address] * POC GLUCOSE (11/06/2007 4:42 PM CDT) GLUCOSE POC 95 65 - 99 mg/dL [facility] Venous blood specimen (specimen) 11/06/2007 4:42 PM CDT 11/06/2007 4:42 PM CDT Jesusita Roland MD POINT OF CARE TESTING Final Result Performing Organization Address City/[facility]/ZIP Co de Phone Number [facility] [address] [place] [address] * POC GLUCOSE (11/06/2007 11:32 AM CDT) GLUCOSE POC 96 65 - 99 mg/dL [facility] Venous blood specimen (specimen) 11/06/2007 11:32 AM CDT 11/06/2007 11:32 AM CDT us Jesusita Roland MD POINT OF CARE TESTING Final Result Performing Organization Address City/[facility]/ZIP Co de Phone Number [facility] [address] [place] [address] * (ABNORMAL) POC GLUCOSE (11/06/2007 7:27 AM CDT) GLUCOSE POC 108(H) 65 - 99 mg/dL [facility] Venous blood specimen (specimen) 11/06/2007 7:27 AM CDT 11/06/2007 7:27 AM CDT Jesusita Roland MD POINT OF CARE TESTING Final Result Performing Organization Address City/[facility]/ZIP Co de Phone Number [facility] [address] [place] [address] * (ABNORMAL) POC GLUCOSE (11/05/2007 8:02 PM CDT) GLUCOSE POC 160(H) 65 - 99 mg/dL [facility] Venous blood specimen (specimen) 11/05/2007 8:02 PM CDT 11/05/2007 8:02 PM CDT Jesusita Roland MD POINT OF CARE TESTING Final Result Performing Organization Address City/[facility]/ZIP Co de Phone Number [facility] [address] [place] [address] * POC GLUCOSE (11/05/2007 4:54 PM CDT) [facility] Signature GLUCOSE POC 91 65 - 99 mg/dL [facility] Venous blood specimen (specimen) 11/05/2007 4:54 PM CDT 11/05/2007 4:54 PM CDT Jesusita Roland MD POINT OF CARE TESTING Final Result Performing Organization Address City/[facility]/ZIP Co de Phone Number [facility] [address] [place] [address] * (ABNORMAL) HEMOGLOBIN A1C (11/05/2007 3:37 PM CDT) GLUCOSE, MEAN BLOOD 161 mg/dL [facility] HEMOGLOBIN A1C 6.7(H) 4.1 - 6.1 % of Hgb [facility] Blood specimen (specimen) 11/05/2007 3:37 PM CDT 11/05/2007 3:49 PM CDT Kandis Vásquez MD CHEMISTRY ORDERABLES Final Result Performing Organization Address [facility] Co de Phone Number [facility] [address] [place] [address] * (ABNORMAL) POC GLUCOSE (11/05/2007 11:30 AM CDT) GLUCOSE POC 62(L) 65 - 99 mg/dL [facility] Venous blood specimen (specimen) 11/05/2007 11:30 AM CDT 11/05/2007 11:30 AM CDT Jesusita Roland MD POINT OF CARE TESTING Final Result Performing Organization Address [facility] Co de Phone Number [facility] [address] [place] [address] * POC GLUCOSE (11/05/2007 7:41 AM CDT) GLUCOSE POC 88 65 - 99 mg/dL [facility] Venous blood specimen (specimen) 11/05/2007 7:41 AM CDT 11/05/2007 7:41 AM CDT Jesusita Roland MD POINT OF CARE TESTING Final Result Performing Organization Address City/[facility] Co de Phone Number [facility] [address] [place] [address] * (ABNORMAL) BASIC METABOLIC PANEL (11/05/2007 4:30 AM CDT) BUN 19 6 - 20 mg/dL [facility] CHLORIDE 101 96 - 108 mmol/L [facility] GLUCOSE 104(H) 65 - 99 mg/dL [facility] SODIUM 138 135 - 145 mmol/L [facility] CALCIUM 8.4 8.4 - 10.2 mg/dL [facility] CO2 26 22 - 30 mmol/L [facility] CREATININE 1.04 0.67 - 1.17 mg/dL [facility] POTASSIUM 4.0 3.5 - 4.9 mmol/L [facility] GFR, >60 >=60 mL/min/1. 7 sq meter [facility] GFR >60 >=60 mL/min/1. 7 sq meter [facility] Comment: Estimated GFR rate interpretative information for both Americans and non- Americans is available on the [facility] Intranet at: [email or web address] Select: Lab Policies and Procedures Select: Reference Ranges - GFR Blood specimen (specimen) 11/05/2007 4:30 AM CDT 11/05/2007 5:22 AM CDT us Jesusita Roland MD CHEMISTRY ORDERABLES Edited [facility] [address] [place] [address] * CLOSTRIDIUM DIFFICILE TOXIN (11/04/2007 11:20 PM [...] GLUCOSE POC 111(H) 65 - 99 mg/dL [facility] Venous blood specimen (specimen) 11/04/2007 8:02 PM CDT 11/04/2007 8:02 PM CDT Jesusita Roland MD POINT OF CARE TESTING Final Result Performing Organization Address City/[facility]/ZIP Co de Phone Number [facility] [address] [place] [address] * (ABNORMAL) POC GLUCOSE (11/04/2007 4:07 PM CDT) GLUCOSE POC 138(H) 65 - 99 mg/dL [facility] Venous blood specimen (specimen) 11/04/2007 4:07 PM CDT 11/04/2007 4:07 PM CDT Jesusita Roland MD POINT OF CARE TESTING Final Result Performing Organization Address [facility]/ZIP Co de Phone Number [facility] [address] [place] [address] * POC GLUCOSE (11/04/2007 11:35 AM CDT) GLUCOSE POC 92 65 - 99 mg/dL [facility] Venous blood specimen (specimen) 11/04/2007 11:35 AM CDT 11/04/2007 11:35 AM CDT Jesusita Roland MD POINT OF CARE TESTING Final Result Performing Organization Address City/[facility]/ZIP Co de Phone Number [facility] [address] [place] [address] * (ABNORMAL) POC GLUCOSE (11/04/2007 7:15 AM CDT) GLUCOSE POC 146(H) 65 - 99 mg/dL [facility] Venous blood specimen (specimen) 11/04/2007 7:15 AM CDT 11/04/2007 7:15 AM CDT us Jesusita Roland MD POINT OF CARE TESTING Final Result Performing Organization Address City/[facility]/ZIP Co de Phone Number [facility] [address] [place] [address] * (ABNORMAL) BASIC METABOLIC PANEL (11/04/2007 4:35 AM CDT) CO2 25 22 - 30 mmol/L [facility] CREATININE 1.04 0.67 - 1.17 mg/dL [facility] POTASSIUM 3.9 3.5 - 4.9 mmol/L [facility] BUN 20 6 - 20 mg/dL [facility] CHLORIDE 102 96 - 108 mmol/L [facility] GLUCOSE 90 65 - 99 mg/dL [facility] SODIUM 136 135 - 145 mmol/L [facility] CALCIUM 8.3(L) 8.4 - 10.2 mg/dL [facility] GFR, >60 >=60 mL/min/1. 7 sq meter [facility] GFR >60 >=60 mL/min/1. 7 sq meter [facility] Comment: Estimated GFR rate interpretative information for both Americans and non- Americans is available on the [facility] Intranet at: [email or web address] Select: Lab Policies and Procedures Select: Reference Ranges - GFR Blood specimen (specimen) 11/04/2007 4:35 AM CDT 11/04/2007 5:37 AM CDT us Jesusita Roland MD CHEMISTRY ORDERABLES Edited [facility] [address] [place] [address] * (ABNORMAL) PROTIME-INR (11/04/2007 4:35 AM CDT) Pathologist [facility] INR 1.5(H) 0.9 - 1.1 [facility] Comment: INR Therapeutic Range: Adult: 2.0 [...] established. PROTIME 18.1(H) 12.7 - 15.1 Seconds [facility] Blood specimen (specimen) 11/04/2007 4:35 AM CDT 11/04/2007 5:37 AM CDT us Jesusita Roland MD HEMATOLOGY ORDERABLES Final Result Performing Organization Address City/State/[facility] Co de Phone Number [facility] [address] [place] [address] * (ABNORMAL) CBC WITH DIFFERENTIAL (11/04/2007 4:35 AM CDT) [facility] HEMATOCRIT 45.9 40.0 - 48.0 % [facility] RDW-STDEV 51.2(H) 37.1 - 48.7 fL [facility] RBC 4.57 4.50 - 5.40 M/uL [facility] MCHC 32.7 31.5 - 35.5 % [facility] MCV 100.4(H) 82.0 - 99.0 fL [facility] PLATELETS 162 140 - 350 K/uL [facility] HEMOGLOBIN 15.0 13.6 - 16.5 g/dL [facility] RDW 14.1 11.5 - 14.5 % [facility] WBC 7.2 4.0 - 9.8 K/uL [facility] MCH 32.8(H) 27.2 - 32.6 pg [facility] MPV 11.4 9.3 - 12.4 fL [facility] BASOPHILS ABSOLUTE 0.07 0.00 - 0.20 K/uL [facility] MONOCYTES 16(H) 3 - 13 % [facility] MONOCYTE ABSOLUTE 1.15 0.10 - 1.30 K/uL [facility] NEUTROPHILS 64 45 - 70 % [facility] NEUTROPHIL ABSOLUTE 4.55 1.90 - 7.00 K/uL [facility] EOSINOPHILS 1 0 - 7 % [facility] EOSINOPHIL ABSOLUTE 0.07 0.00 - 0.70 K/uL [facility] LYMPHOCYTES 18 16 - 45 % [facility] LYMPHOCYTE ABSOLUTE 1.31 0.70 - 4.50 K/uL [facility] BASOPHILS 1 0 - 2 % [facility] Blood specimen (specimen) 11/04/2007 4:35 AM CDT 11/04/2007 5:37 AM CDT us Jesusita Roland MD HEMATOLOGY ORDERABLES Edited INTERFACE SYSTEM Refer to clinic/hospital department [facility] [address] [place] [place] [address] * SPUTUM CULTURE WITH GRAM STAIN (11/03/2007 10:27 PM CDT) GRAM STAIN Non diagnostic pattern Many WBC's seen INTERFACE SYSTEM FINAL REPORT Heavy growth normal upper respiratory leticia INTERFACE SYSTEM 11/03/2007 10:2 7 PM CDT 11/03/2007 11:00 PM CDT Kandis Vásquez MD MICROBIOLOGY - GENERAL ORD ERABLES Final Result Performing Organization Address City/[facility] Co de Phone Number INTERFACE SYSTEM Refer [...] is less sensitive for viral detection. Result [facility] Kandis Vásquez MD MICROBIOLOGY - GENERAL ORD ERABLES Final Result Performing Organization Address [facility] Co de Phone Number INTERFACE SYSTEM Refer to clinic/hospital department * POC GLUCOSE (11/03/2007 8:18 PM CDT) Pathologist [facility] GLUCOSE POC 98 65 - 99 mg/dL [facility] Venous blood specimen (specimen) 11/03/2007 8:18 PM CDT 11/03/2007 8:18 PM CDT Jesusita Roland MD POINT OF CARE TESTING Final Result Performing Organization Address City/[facility] Co de Phone Number [facility] [address] [place] [address] * ECHOCARDIOGRAM COMPLETE (11/03/2007 4:41 PM CDT) Narrative INTERFACE SYSTEM - 11/03/2007 4:41 PM CDT [address] [place] [address] [email or web address] Patient: Patricia Dunham Study ID: Adult Echo Gender: M : 1945 Age: 62 years Race: 1 Room: Bed: Height: 70 in ( 178 cm ) Study Date: November 03, 2007 Patient status: Inpatient Weight: 217.58 lb ( 98.9 kg ) Access. #: [id number] POC: Ordering: Milton Consulting: Grant Attending MD: [...] 16:24:28 Procedure Note Provider, Historical - 11/03/2007 [address] [address] [id number]: [email or web address] Patient: Patricia Dunham Study ID: Adult Echo Gender: M : 1945 Age: 62 years Race: 1 Room: Bed: Height: 70 in ( 178 cm ) Study Date: November 03, 2007 Patient status: Inpatient Weight: 217.58 lb ( 98.9 kg ) Access. #: [id number] POC: Ordering: Milton Consulting: Grant Attending MD: [...] US ORDERABLES Final Result Performing Organization Address City/[facility] Co de Phone Number INTERFACE SYSTEM Refer to clinic/hospital department * (ABNORMAL) POC GLUCOSE (11/03/2007 4:33 PM CDT) GLUCOSE POC 149(H) 65 - 99 mg/dL [facility] Venous blood specimen (specimen) 11/03/2007 4:33 PM CDT 11/03/2007 4:33 PM CDT Jesusita Roland MD POINT OF CARE TESTING Final Result Performing Organization Address [facility] de Phone Number [facility] [address] [place] [address] * US DOPPLER ARTERIAL LEGS BILATERAL (11/03/2007 3:33 PM CDT) Anatomical Region Laterality Modality Lower Extremity Other Narrative 11/03/2007 3:33 PM CDT Please type in written order in [place] [address] [email or web address] Peripheral Venous Study Patient: Patricia Dunham Study ID: BLOOD FLOW STUDY Gender: M : 1945 Age: 62 years Race: 1 Room: Bed: Height: Study Date: November 03, 2007 Patient status: Inpatient Weight: Access. #: [id number] POC: [employer]: Sandy Ordering: Milton Consulting: Grant Attending MD: [...] in written order in Special Instructions field. [address] [place] [address] [email or web address] Peripheral Venous Study Patient: Patricia Dunham Study ID: BLOOD FLOW STUDY Gender: M : 1945 Age: 62 years Race: 1 Room: Bed: Height: Study Date: November 03, 2007 Patient status: Inpatient Weight: Access. #: [id number] POC: [employer] Business [employer]: Sandy Ordering: Milton Consulting: Grant Attending MD: [...] Confirmed November 03, 2007 15:30:04 us Jesusita Roladn MD ORDERABLES Final Result * SPUTUM CULTURE [...] (ABNORMAL) POC GLUCOSE (11/03/2007 11:36 AM CDT) [facility] GLUCOSE POC 136(H) 65 - 99 mg/dL [facility] Venous blood specimen (specimen) 11/03/2007 11:36 AM CDT 11/03/2007 11:36 AM CDT us Jesusita Roland MD POINT OF CARE TESTING Final Result Performing Organization Address City/[facility]/ZIP Co de Phone Number [facility] [address] [place] [address] * TROPONIN (W/REFLEX CKMB/CK) (11/03/2007 11:32 AM CDT) [facility] TROPONIN T <0.01 <=0.03 ng/mL [facility] TROPONIN T INTERP Negative [facility] Blood specimen (specimen) 11/03/2007 11:32 AM CDT 11/03/2007 11:35 AM CDT us Jesusita Roland MD CHEMISTRY ORDERABLES Edited Performing Organization Address City/[facility]/ZIP Co de Phone Number [facility] [facility] [address] [place] [address] * BLOOD CULTURE (11/03/2007 9:52 AM CDT) [facility] PRELIMINARY REPORT No growth to date. Culture in progress INTERFACE SYSTEM FINAL REPORT No growth 5 days INTERFACE SYSTEM Blood specimen (specimen) 11/03/2007 9:52 AM CDT 11/03/2007 12:07 PM CDT us Jesusita Roland MD MICROBIOLOGY - GENERAL ORDER JOSEPH Final Result Performing Organization Address City/[facility] de Phone Number INTERFACE [...] ORDER JOSEPH Final Result Performing Organization Address [facility] de Phone Number INTERFACE SYSTEM Refer to clinic/hospital department * (ABNORMAL) POC GLUCOSE (11/03/2007 7:07 AM CDT) GLUCOSE POC 129(H) 65 - 99 mg/dL [facility] Venous blood specimen (specimen) 11/03/2007 7:07 AM CDT 11/03/2007 7:07 AM CDT us Jesusita Roland MD POINT OF CARE TESTING Final Result Performing Organization Address [facility] de Phone Number [facility] [address] [place] [address] * (ABNORMAL) BASIC METABOLIC PANEL (11/03/2007 2:55 AM CDT) GLUCOSE 116(H) 65 - 99 mg/dL [facility] SODIUM 137 135 - 145 mmol/L [facility] CALCIUM 8.8 8.4 - 10.2 mg/dL [facility] CO2 27 22 - 30 mmol/L [facility] CREATININE 1.23(H) 0.67 - 1.17 mg/dL [facility] POTASSIUM 4.3 3.5 - 4.9 mmol/L [facility] BUN 17 6 - 20 mg/dL [facility] CHLORIDE 100 96 - 108 mmol/L [facility] GFR, >60 >=60 mL/min/1. 7 sq meter [facility] GFR 60 >=60 mL/min/1. 7 sq meter [facility] Comment: Estimated GFR rate interpretative information for both Americans and non- Americans is available on the [facility] Intranet at: [email or web address] Select: Lab Policies and Procedures Select: Reference Ranges - GFR Blood specimen (specimen) 11/03/2007 2:55 AM CDT 11/03/2007 2:56 AM CDT Jesusita Roland MD CHEMISTRY ORDERABLES Edited [facility] [address] [place] [address] * TROPONIN (W/REFLEX CKMB/CK) (11/03/2007 2:55 AM CDT) TROPONIN T <0.01 <=0.03 ng/mL [facility] TROPONIN T INTERP Negative [facility] Blood specimen (specimen) 11/03/2007 2:55 AM CDT 11/03/2007 2:56 AM CDT Jesusita Roland MD CHEMISTRY ORDERABLES Edited [facility] [address] [address] * (ABNORMAL) POC GLUCOSE (11/02/2007 8:25 PM CDT) GLUCOSE POC 103(H) 65 - 99 mg/dL [facility] Venous blood specimen (specimen) 11/02/2007 8:25 PM CDT 11/02/2007 8:25 PM CDT us Jesusita Roland MD POINT OF CARE TESTING Final Result [facility] [address] [place] [address] * XR CHEST PA AND LATERAL (11/02/2007 7:43 PM CDT) Anatomical Region Laterality Modality Chest Other 11/02/2007 7:43 PM CDT Narrative 11/03/2007 9:04 AM CDT [facility] [address] [place], [place] [address] Admit Date: 11/02/2007 PATRICIA DUNHAM Sex: M Admit Prov: BERTHAJESUSITA LOPEZ Date: 1945 Primary Care Prov: CARMINEBeeMERYL CMRN: [id number] Room: [address] [place] [address] SSN: [id number] IMAGING SERVICES Ordering Prov: N/A Accession Number: [id number] Interpretation CHEST 2 VIEWS 11/02/2007 History: Congestive [...] AMK Procedure Note Provider, Historical - 11/03/2007 [facility] [address] [place], [place] [address] Admit Date: 11/02/2007 PATRICIA DUNHAM Sex: M Admit Prov: JESUSITA ROLAND Date: 1945 Primary Care Prov: MERYL FRIEDMAN CMRN: [id number] Room: [address] [place] [address] SSN: [id number] IMAGING SERVICES Ordering Prov: N/A Interpretation CHEST [...] PM CDT) TROPONIN T <0.01 <=0.03 ng/mL [facility] TROPONIN T INTERP Negative [facility] Blood specimen (specimen) 11/02/2007 7:05 PM CDT 11/02/2007 7:13 PM CDT us Jesusita Roland MD CHEMISTRY ORDERABLES Edited [facility] [address] [facility] [place] [address] * TSH (11/02/2007 7:05 PM CDT) TSH 1.59 0.27 - 4.20 uU/mL [facility] Blood specimen (specimen) 11/02/2007 7:05 PM CDT 11/02/2007 7:13 PM CDT Jesusita Roland MD CHEMISTRY ORDERABLES Final R esult Performing Organization Address [facility] Co de Phone Number [facility] [address] [place] [address] * (ABNORMAL) HEPATIC FUNCTION PANEL (11/02/2007 7:05 PM CDT) BILIRUBIN TOTAL 1.0 0.2 - 1.0 mg/dL [facility] ALT 72(H) 0 - 41 U/L [facility] ALKALINE PHOSPHATASE 58 40 - 129 U/L [facility] TOTAL PROTEIN 7.0 6.3 - 8.6 g/dL [facility] BILIRUBIN DIRECT 0.4(H) 0.0 - 0.3 mg/dL [facility] AST 38 12 - 38 U/L [facility] ALBUMIN 4.2 3.4 - 4.8 g/dL [facility] Blood specimen (specimen) 11/02/2007 7:05 PM CDT 11/02/2007 7:13 PM CDT Jesusita Roland MD CHEMISTRY ORDERABLES Final R esult Performing Organization Address [facility] Co de Phone Number [facility] [address] [place] [address] * (ABNORMAL) PROTIME-INR (11/02/2007 7:05 PM CDT) INR 1.3(H) 0.9 - 1.1 [facility] Comment: INR Therapeutic Range: Adult: 2.0 [...] established. PROTIME 16.2(H) 12.7 - 15.1 Seconds [facility] Blood specimen (specimen) 11/02/2007 7:05 PM CDT 11/02/2007 7:13 PM CDT us Jesusita Roland MD HEMATOLOGY ORDERABLES Final Result [facility] [address] [address] * (ABNORMAL) CBC WITH DIFFERENTIAL (11/02/2007 7:05 PM CDT) MCV 101.4(H) 82.0 - 99.0 fL [facility] PLATELETS 169 140 - 350 K/uL [facility] HEMOGLOBIN 16.6(H) 13.6 - 16.5 g/dL [facility] RDW 14.1 11.5 - 14.5 % [facility] WBC 9.3 4.0 - 9.8 K/uL [facility] MCH 33.3(H) 27.2 - 32.6 pg [facility] MPV 11.7 9.3 - 12.4 fL [facility] HEMATOCRIT 50.6(H) 40.0 - 48.0 % [facility] RDW-STDEV 52.0(H) 37.1 - 48.7 fL [facility] RBC 4.99 4.50 - 5.40 M/uL [facility] MCHC 32.8 31.5 - 35.5 % [facility] EOSINOPHILS 0 0 - 7 % [facility] EOSINOPHIL ABSOLUTE 0.02 0.00 - 0.70 K/uL [facility] LYMPHOCYTES 13(L) 16 - 45 % [facility] LYMPHOCYTE ABSOLUTE 1.18 0.70 - 4.50 K/uL [facility] BASOPHILS 1 0 - 2 % [facility] BASOPHILS ABSOLUTE 0.05 0.00 - 0.20 K/uL [facility] MONOCYTES 15(H) 3 - 13 % [facility] MONOCYTE ABSOLUTE 1.43(H) 0.10 - 1.30 K/uL [facility] NEUTROPHILS 71(H) 45 - 70 % [facility] NEUTROPHIL ABSOLUTE 6.66 1.90 - 7.00 K/uL [facility] Blood specimen (specimen) 11/02/2007 7:05 PM CDT 11/02/2007 7:13 PM CDT us Jesusita Roland MD HEMATOLOGY ORDERABLES Edited INTERFACE SYSTEM Refer to clinic/hospital department [facility] [address] [place] [address] * BASIC METABOLIC PANEL (11/02/2007 7:05 PM CDT) BUN 15 6 - 20 mg/dL [facility] CHLORIDE 102 96 - 108 mmol/L [facility] GLUCOSE 92 65 - 99 mg/dL [facility] SODIUM 138 135 - 145 mmol/L [facility] CALCIUM 9.2 8.4 - 10.2 mg/dL [facility] CO2 25 22 - 30 mmol/L [facility] CREATININE 1.10 0.67 - 1.17 mg/dL [facility] POTASSIUM 4.5 3.5 - 4.9 mmol/L [facility] GFR, >60 >=60 mL/min/1.7 sq meter [facility] GFR >60 >=60 mL/min/1.7 sq meter [facility] Comment: Estimated GFR rate interpretative information for both Americans and non- Americans is available on the [facility] Intranet at: [email or web address] Select: Lab Policies and Procedures Select: Reference Ranges - GFR Blood specimen (specimen) 11/02/2007 7:05 PM CDT 11/02/2007 7:13 PM CDT Jesusita Roland MD CHEMISTRY ORDERABLES Edited Performing Organization Address City/[facility]/ZIP Co de Phone Number [facility] [address] [place] [address] * LIPID PANEL (11/02/2007 7:05 PM CDT) CHOL/HDL RATIO 2.8 2.0 - 5.0 [facility] TRIGLYCERIDE 59 10 - 149 mg/dL [facility] HDL 40 40 - 59 mg/dL [facility] CHOLESTEROL 110 100 - 199 mg/dL [facility] LDL CALCULATED 58 <=99 mg/dL [facility] LIPID PANEL COMMENT See Below [facility] Comment: The adult ATP and pediatric NCEP classifications for lipids are available on the [facility] Intranet at: [email or web address] Select: Lab Policies and Procedures,Current Select: Lipid Panel Interpretation Blood specimen (specimen) 11/02/2007 7:05 PM CDT 11/02/2007 7:13 PM CDT us Jesusita Roland MD CHEMISTRY ORDERABLES Edited [facility] [address] [place] [place] [address] documented in this encounter Visit Diagnoses Diagnosis Congestive heart failure, unspecified (CMS/HCC) Congestive heart failure, unspecified documented in this encounter Care Teams Content Specialist Relationship Specialty Start Date End Date Meryl Friedman MD PCP - General 12/10/07 documented as of this encounter
--- OUTSIDE RECORDS SUMMARY | 2025-02-25 22:28 | XMS_ITS | Clinical Summary ---
Author Organization [facility] Address [address] [place] [address] Phone Care Team Providers Care Supervisor [employer] Name Role Phone Dimitry Kamara MD Primary Care Provider + Social History Tobacco Use Types Packs/Day Years Used Date Smoking Tobacco: Never Assessed Sex and Gender Information Value Date Recorded Sex Assigned at Not on file Legal Sex Male 2:54 AM DIRECT CARE PROVIDER Gender Identity Not on file Sexual Orientation Not on file Plan of Treatment Health Maintenance Due Date Last Done Comments DTAP/TDAP/TD VACCINES (1 - Tdap) 1964 PNEUMOCOCCAL VACCINE 50+ YEARS (1 of 1 - PCV) 10/11/18 96 ZOSTER VACCINE (1 of 2) 10/12/1995 RSV VACCINE (60+ or ) (1 - 1-dose 75+ series) 2020 INFLUENZA VACCINE (#1) [address] [facility] BLUE ACCESS/TRUE BLUE PPO Care Teams Supervisor [employer] Relationship Specialty Start Date End Date Dimitry Kamara MD PCP - General 12/10/07
[2025-02-25] MEDS: METOPROLOL TARTRATE 25 MG TABLET PO (22:33)
--- NOTE | 2025-02-25 22:57 | ED_ITS ---
HPI - Fall General Chief Complaint: Fall Stated Complaint: FALL, STRUCK BACK OF HEAD, NO LOC Time Seen by Provider: 02/25/25 21:44 Source: patient Mode of arrival: EMS Limitations: no limitations History of Present Illness HPI Narrative: Patient is a 79-year-old male, past medical history of dementia, hypertension, diabetes, AFib on Eliquis and metoprolol, who presents to the ED via EMS with report of a fall. Patient is resident at [facility]. Reports he lost his balance while walking and fell backwards. He did hit his head on the ground. Denied LOC. Sent here for further evaluation. Patient denies any areas of pain. He does have chronic back pain, but reports this is no different than usual. Denies worsening pain since the fall tonight. Denies neck pain, chest pain, shortness breath, abdominal pain. Related Data Home Medications ?Medication ?Instructions ?Recorded ?Confirmed ?Last Taken ?Type mecobalamin (vitamin B12) 1,000 1,000 mcg PO DAILY 04/22/24 02/12/25 02/12/25 History mcg chewable tablet Allergies Allergy/AdvReac Type Severity Reaction Status Date / Time No Known Allergies Allergy Verified 10/13/24 14:03 Review of Systems 2 Review of Systems: All systems reviewed & are unremarkable except as noted in HPI. All systems reviewed & are unremarkable except as noted in HPI and below PMFSH Past Medical History Medical History CVA (cerebral vascular accident) (~03/2024) 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 Right kidney stone Hx of colonic polyps Tobacco abuse Elevated homocysteine COPD (chronic obstructive pulmonary disease) Vitamin D deficiency Hearing loss ASHD (arteriosclerotic heart disease) A-fib Hyperlipidemia Benign essential hypertension Diabetes mellitus type 2, insulin dependent Surgical History Surgical History H/O aortic valve replacement Family History Family History Father Family history of malignant neoplasm Other Family history of cardiovascular disease Family history of pancreatic cancer Social History Social History Social History: Code status: Full code (per EMR) Surrogate decision maker: Russell (son) Smoking packs per day: 1 Smoking cigarettes per day: 20.0 Years smoked: 60 Smoking pack-years: 60.00 Smoking status: Current every day smoker Tobacco type: cigarettes Second hand tobacco smoke exposure: No Alcohol intake: never Substance use: never Substance use type: does not use Do You Feel Safe in your Home?: Yes Lack of Transportation: No Lack of Food: Never True Current Housing: I Have Housing Concerned About Future Housing: No Difficulty Paying Gas/Electric Bills: No Difficulty Paying for Meds: No Currently Unemployed: No Education: High School Diploma/GED Difficulty w/ Childcare or Family Care: No Living arrangements: with family Additional living arrangements comments: The patient's grandson lives with him. Patient raised 2 sons. 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 HEAD: Normocephalic, atraumatic. NECK: Normal ROM, no significant focal tenderness. RESPIRATORY: Airway patent, respirations nonlabored. Clear to auscultation bilaterally, no rales, rhonchi, wheezing. No focal lung sounds. CARDIOVASCULAR: Borderline tachycardic with irregular rhythm without murmurs, rubs, or gallops. ABDOMINAL: Soft, nontender, nondistended. Normoactive BS. MUSCULOSKELETAL: Moves all extremities. No gross deformities. No significant focal tenderness throughout lumbar midline spine. No palpable bony deformities. Sensation intact. SKIN: Warm, dry, normal color. NEURO: A&O X3. Speech clear. No ataxic movements. No focal deficits. PSYCHIATRIC: Appropriate mood and affect. Normal interaction. Course Vital Signs Vital signs: Vital Signs Temperature 99 F 02/25/25 21:34 Pulse Rate 110 H 02/25/25 21:34 Respiratory Rate 18 02/25/25 21:34 Blood Pressure 111/49 L 02/25/25 21:34 Pulse Oximetry 95 02/25/25 21:34 Oxygen Delivery Room Air 02/25/25 21:34 Temperature 99 F 02/25/25 21:34 Pulse Rate 54 L 02/26/25 02:26 Respiratory Rate 17 02/26/25 02:26 Blood Pressure 167/85 H 02/26/25 02:26 Pulse Oximetry 96 02/26/25 02:26 Oxygen Delivery Room Air 02/25/25 21:34 MDM - Fall MDM Narrative Medical decision making narrative: Patient presented to ED from local half-way facility after ground level fall, head injury in, no LOC. On Eliquis due to history of AFib. Patient neurologically intact upon arrival. Vital signs are stable. In no acute distress. Denying any acute complaints. CT brain and cervical spine were obtained and without acute traumatic findings. Patient continues to deny any new areas of pain. Remains neurologically intact. Was noted to be tachycardic on monitoring engineer. Sounded irregular with auscultation. Does have history of AFib. EKG did show AFib with RVR, rates in the low 100s. Some nonspecific ST changes. Patient is denying any significant symptoms related to this. Denies chest pain, shortness of breath, palpitations. Does report feeling possibly slightly lightheaded, but states this is not abnormal for him. He was given his nighttime dose of metoprolol tartrate 25 mg. Given 1 L of fluids. Laboratory studies were obtained and fairly unremarkable. Very minimal leukocytosis, though this appears chronic for patient per previous records. Anemia stable. Stable electrolytes. Stable magnesium. Troponin within normal range. Again patient denying any chest pain. Heart rate did normalize into the 80s/low 90s. Blood pressure remained stable. Patient will be discharged back to half-way. Given return precautions. Discharged in stable condition. Medical Records Attestation: I reviewed the patient's medical records. Lab Data Attestation: I reviewed the patient's lab results. 02/25/25 23:25 02/25/25 23:25 Labs: Lab Results 02/25/25 Range/Units 23:25 WBC 11.8 H (4.5-10.0) K/mm3 RBC 3.37 L (4.6-6.20) M/mm3 Hgb 10.7 L (14.0-18.0) g/dL Hct 34.2 L (42.0-52.0) % MCV 101.5 H (80-100) fl MCH 31.8 (26-34) pg MCHC 31.3 L (32-36) g/dl RDW 15.1 H (11.5-14.5) % Plt Count 161 (150-375) k/mm3 MPV 10.3 (7.4-10.4) fl Immature Gran % (Auto) 0.5 (0-0.5) % Neut % (Auto) 86.5 H (45.5-73.1) % Lymph % (Auto) 8.1 L (18.3-44.2) % Dickens % (Auto) 4.4 (2.6-8.5) % Eos % (Auto) 0.2 (0-4.4) % Baso % (Auto) 0.3 (0.2-1.2) % Lymph # (Auto) 0.95 (0.9-3.2) K/mm3 Dickens # (Auto) 0.5 (0.1-0.6) K/mm3 Eos # (Auto) 0.0 (0-0.3) K/mm3 Baso # (Auto) 0.0 (0.0-0.1) K/mm3 Abs Immat Gran (auto) 0.06 H (0.00-0.031) K/mm3 Absolute Neuts (auto) 10.2 H (1.3-6.7) K/mm3 Absolute Nucleated RBC 0.000 (0.0-0.012) K/mm3 Nucleated RBC % 0.0 (0.0-0.2) % PT 22.3 H (11.1-14.7) Seconds INR 2.0 APTT 35.0 (22.3-36.8) Seconds Sodium 136 L (137-145) mmol/L Potassium 3.7 (3.4-5.0) mmol/L Chloride 102 (98-107) mmol/L Carbon Dioxide 30 (22-30) mmol/L Anion Gap 4 (4-12) mmol/L BUN 19 (9-20) mg/dL Creatinine 0.79 (0.7-1.3) mg/dL Estim Creat Clear Calc 55 ml/min Estimated GFR > 60 (59 - ) Glucose 247 H (65-110) mg/dL Calcium 8.9 (8.4-10.2) mg/dL Magnesium 2.0 (1.6-2.3) mg/dL Total Bilirubin 1.0 (0.2-1.3) mg/dL AST 29 (17-59) U/L ALT 22 (6-50) U/L Alkaline Phosphatase 129 H (38-126) U/L Troponin I 0.019 (0.000-0.034) ng/mL Total Protein 6.7 (6.3-8.2) g/dL Albumin 2.9 L (3.5-5.1) g/dL Imaging Data Attestation: I personally reviewed and interpreted this imaging study as follows: Radiologist's impression: ITS Impressions Head CT 02/25/25 22:02 IMPRESSION: No acute intracranial process. Cervical Spine CT 02/25/25 22:03 IMPRESSION: No acute fracture or traumatic malalignment in the cervical spine. Severe degenerative changes in the cervical spine. ECG Data EKG #1: Attestation: I personally reviewed and interpreted this ECG as follows: ECG completion date: 02/25/25 ECG completion time: 22:20 EKG Interpretation: tachycardia (109), atrial fibrillation and non- specific ST changes Discharge Plan Discharge Clinical Impression: Fall from ground level, Chronic anticoagulation Closed head injury Qualifiers: Encounter type: initial encounter Qualified Code(s): S09.90XA - Unspecified injury of head, initial encounter Patient Disposition: NH Senior Living/Asst Living Condition: Stable Instructions: Antibiotic Form, Fall Prevention for Older Adults (ED), Head Injury (ED) Additional Instructions: Patient's imaging did not show any evidence of fracture for traumatic findings. Recommend Tylenol as needed for pain, ice areas of pain. Return patient to the ED if he experiences recurrent fall or injury, severe pain, severe dizziness, passing out, unable to keep down food or drink, chest pain, difficulty breathing, or any other symptoms of concern. Patient Language: Persian Prescriptions: No Action (DME) Adult Incontinence Pads Ht 5'9 wt 145 See Rx Instructions .Route .MEDSUPPLY Qty: 60 6RF Rx Instructions: As directed metformin [Glumetza] 1,000 mg tablet,ER kanika.retention 24 hr 1,000 mg PO DAILY Qty: 30 0RF nicotine [Nicoderm CQ] 21 mg/24 hr Patch 24 Hour 1 patch transdermal DAILY Qty: 28 0RF metoprolol tartrate 25 mg tablet 25 mg PO BID Qty: 200 2RF Dose Instruction: TAKE 1 TABLET BY MOUTH TWICE DAILY Rx Instructions: TAKE 1 TABLET BY MOUTH TWICE DAILY hydrochlorothiazide 12.5 mg capsule 12.5 mg PO DAILY Qty: 30 0RF insulin aspart U-100 [Novolog U-100 Insulin aspart] 100 unit/mL Solution 2 - 5 unit subcut TIDWM Qty: 10 0RF Protocol: Insulin Corrective Low-Dose Condition: glucose < 70 mg/dl Dose/Route: Follow Hypoglycemia Order Condition: glucose 70-200 mg/dl Dose/Route: No additional insulin Condition: glucose 201-250 mg/dl Dose/Route: 2 units sub-Q Condition: glucose 251-300 mg/dl Dose/Route: 3 units sub-Q Condition: glucose 301-350 mg/dl Dose/Route: 4 units sub-Q Condition: glucose 351-400 mg/dl Dose/Route: 5 units sub-Q Condition: glucose > 400 mg/dl Dose/Route: Call MD Protocol Text: *No Correction Dose at Bedtime* mecobalamin (vitamin B12) 1,000 mcg tablet,chewable 1,000 mcg PO DAILY Eliquis 5 mg tablet See Rx Instructions .ROUTE .COMPLEX Qty: 120 5RF Dose Instruction: TAKE 1 TABLET BY MOUTH TWICE DAILY Rx Instructions: TAKE 1 TABLET BY MOUTH TWICE DAILY (DME) pen needle, diabetic 31 gauge x 5/16 needle See Rx Instructions .ROUTE .COMPLEX Qty: 200 0RF Dose Instruction: USE 2 PEN NEEDLES DAILY WITH LEVEMIR PEN Rx Instructions: USE 2 PEN NEEDLES DAILY WITH LEVEMIR PEN dapagliflozin propanediol [Farxiga] 5 mg tablet See Rx Instructions .ROUTE .COMPLEX Qty: 100 1RF Dose Instruction: TAKE 1 TABLET BY MOUTH AT BEDTIME Rx Instructions: TAKE 1 TABLET BY MOUTH AT BEDTIME niacin 500 mg tablet extended release 24 hr See Rx Instructions .ROUTE .COMPLEX Qty: 100 2RF Dose Instruction: TAKE 1 TABLET BY MOUTH AT BEDTIME Rx Instructions: TAKE 1 TABLET BY MOUTH AT BEDTIME atorvastatin 20 mg tablet 20 mg PO HS Qty: 90 1RF donepezil 10 mg tablet See Rx Instructions .ROUTE .COMPLEX Qty: 90 3RF Dose Instruction: TAKE 1 TABLET BY MOUTH DAILY AT BEDTIME Rx Instructions: TAKE 1 TABLET BY MOUTH DAILY AT BEDTIME memantine 14 mg capsule,sprinkle,ER 24hr See Rx Instructions .ROUTE .COMPLEX Qty: 90 3RF Dose Instruction: TAKE 1 CAPSULE BY MOUTH DAILY Rx Instructions: TAKE 1 CAPSULE BY MOUTH DAILY folic acid 1 mg tablet 1 mg PO HS Qty: 90 1RF (DME) blood-glucose meter [Accu-Chek Guide Glucose Meter] Misc See Rx Instructions .Route Qty: 1 0RF Rx Instructions: Use to check blood sugar once daily (DME) Accu-Chek Guide test strips Strip See Rx Instructions .Route Qty: 100 0RF Rx Instructions: Use to check blood sugar once daily. omega 3-fxs-lcy-fish oil 300-1,000 mg Capsule 1 cap PO BID Qty: 60 0RF Follow-up/Referrals: Dimitry Kamara MD [Primary Care Provider] - Time of Disposition: 23:01
[2025-02-25] MEDS: SODIUM CHLORIDE 0.9% IV 1,000 ML 999 ML IV CONT (23:26)
[2025-02-25 23:32] LABS: Hematocrit 34.2 % (42.0-52.0); Hemoglobin 10.7 g/dL (14.0-18.0); Immature Granulocyte Percent A 0.5 % (0-0.5); Lymphocytes Absolute Auto 0.95 K/mm3 (0.9-3.2); Mean Corpuscular HGB Conc 31.3 g/dl (32-36); Mean Corpuscular Hemoglobin 31.8 pg (26-34); Mean Corpuscular Volume 101.5 fl (80-100); Nucleated Red Blood Cells Absolute Auto 0.000 K/mm3 (0.0-0.012); Nucleated Red Blood Cells Perc 0.0 % (0.0-0.2); Platelet Count Result 161 k/mm3 (150-375); Red Blood Count 3.37 M/mm3 (4.6-6.20); White Blood Count 11.8 K/mm3 (4.5-10.0)
[2025-02-25 23:45] LABS: INR 2.0; Prothrombin Time 22.3 Seconds (11.1-14.7)
[2025-02-25 23:46] LABS: Partial Thromboplastin Time 35.0 Seconds (22.3-36.8)
[2025-02-25 23:49] LABS: Alanine Aminotransferase 22 U/L (6-50); Albumin Level 2.9 g/dL (3.5-5.1); Alkaline Phosphatase 129 U/L (38-126); Anion Gap 4 mmol/L (4-12); Aspartate Amino Transferase 29 U/L (17-59); Bilirubin,Total 1.0 mg/dL (0.2-1.3); Blood Urea Nitrogen 19 mg/dL (9-20); Calcium 8.9 mg/dL (8.4-10.2); Carbon Dioxide 30 mmol/L (22-30); Chloride 102 mmol/L (98-107); Estimated CRCL calculation 55 ml/min; Estimated Glomerular Filt Rate > 60; Glucose 247 mg/dL (65-110); Magnesium 2.0 mg/dL (1.6-2.3); Potassium 3.7 mmol/L (3.4-5.0); Sodium 136 mmol/L (137-145); Total Protein 6.7 g/dL (6.3-8.2)
[2025-02-25 23:55] LABS: Troponin I 0.019 ng/mL (0.000-0.034)
[2025-02-26] VITALS (18 sets, daily range): BP systolic 92–167; BP diastolic 46–85; PULSE 54–102; RESP 13–26; TEMP 36.4; O2SAT 94–100
--- NOTE | 2025-02-26 00:36 | PC.NURSE ---
Report called to VERONICA Dumont at [facility] at 0034. Patient now waiting for transport back to [facility] via EMS.
== END 2025-02-26 08:53 ==
PROVIDERS: Emergency Provider Physician Assistant; PCP Internal Medicine
DX: S09.90XA Unspecified injury of head, initial encounter (principal); F03.90 Unspecified dementia, unspecified severity, without behavioral disturbance, psychotic disturbance, mood disturbance, and anxiety; I48.91 Unspecified atrial fibrillation; I10 Essential (primary) hypertension; I25.10 Atherosclerotic heart disease of native coronary artery without angina pectoris; E11.9 Type 2 diabetes mellitus without complications; E78.5 Hyperlipidemia, unspecified; E55.9 Vitamin D deficiency, unspecified; J44.9 Chronic obstructive pulmonary disease, unspecified; F17.210 Nicotine dependence, cigarettes, uncomplicated; Z95.2 Presence of prosthetic heart valve; Z86.73 Personal history of transient ischemic attack (TIA), and cerebral infarction without residual deficits; Z87.442 Personal history of urinary calculi; Z86.0100 Personal history of colon polyps, unspecified; Z79.01 Long term (current) use of anticoagulants; Z79.899 Other long term (current) drug therapy; Z79.84 Long term (current) use of oral hypoglycemic drugs; Z79.4 Long term (current) use of insulin; R94.31 Abnormal electrocardiogram [ECG] [EKG]; I44.4 Left anterior fascicular block; W18.39XA Other fall on same level, initial encounter
CPT/HCPCS: 36415; 70450; 72125; 80053; 83735; 84484; 85025; 85610; 85730; 93005; 96360; 99284; A9270; J7030

== ENCOUNTER 2025-03-10 08:57 | Emergency (ER) | payer MEDICARE, SELFPAY ==
--- NOTE | ~2025-03-10 | CT_ITS ---
EXAMINATION: CT cervical spine wo con DATE: 03/10/2025 09:28 INDICATION: Status post fall. Head injury. TECHNIQUE: Computed tomography (CT) of the cervical spine was performed without intravenous contrast. The dose-length product was 214 mGy-cm. Automated exposure control and iterative reconstruction tech nique were employed. COMPARISON: CT dated 02/25/2025 FINDINGS: Stable severe cervical spondylosis at all cervical levels. No acute fracture or traumatic m alalignment. Mild levocurvature. Odontoid process is normal. Lung apices are normal. No paraspinal so ft tissue abnormality. IMPRESSION: 1. No acute fracture. Reviewed, dictated and finalized at location A. IMPRESSION: 1. No acute fracture.
--- NOTE | ~2025-03-10 | CT_ITS ---
EXAMINATION: CT brain wo con DATE: 03/10/2025 09:28 INDICATION: Fall with head injury and altered mental status TECHNIQUE: Computed tomography (CT) of the head was performed without intravenous contrast. Sagittal and coronal reconstructions were performed. The mA was adjusted according to patient size. Iterative reconstruction technique was employed. The dose-length product was 605.33 mGy-cm. COMPARISON: head CT dated 02/25/2025 and brain MR dated 05/27/2024 FINDINGS: No fracture. There are few small old infarcts in the bilateral cerebellar hemispheres. Additional old infarct left basal ganglia extending from the head of the caudate nucleus to the anterior lentiform nucleus crossing the anterior limb of the internal capsule. Small old lacunar infarct at the left cris lamus. No acute intracranial hemorrhage, acute infarction or abnormal extra axial fluid collection. T here is moderate scattered white matter hypoattenuation consistent with chronic small vessel ischemic disease. Symmetric prominence of the sulci and ventricles consistent with moderate age-appropriate diffuse cerebral volume loss. No mass/mass effect. Mild mucosal thickening the left maxillary and sherrie ateral ethmoid sinuses. The orbits and mastoid air cells are normal. IMPRESSION: 1. No fracture or acute intracranial process. 2. A few small old lacunar infarcts in the left thalamus, left basal ganglia and bilateral cerebellar hemispheres. 3. Age-related changes including moderate diffuse volume loss and moderate scattered white matter hyp oattenuation consistent with chronic small vessel ischemic disease. Reviewed, dictated and finalized at location A. IMPRESSION: 1. No fracture or acute intracranial process. 2. A few small old lacunar infarcts in the left thalamus, left basal ganglia an d bilateral cerebellar hemispheres. 3. Age-related changes including moderate diffuse volume loss and moderate scat tered white matter hypoattenuation consistent with chronic small vessel ischemi c disease.
--- NOTE | ~2025-03-10 | XR_ITS ---
XR heel RT min 2V, XR heel LT min 2V 03/10/2025 10:09 Indication: Heel wound Procedure: 2 views of bilateral heel/os calcis Comparison: No prior studies for comparison. Findings: Normal mineralization. No fracture, subluxation or dislocation. No evidence for osteomyelit is. There is atherosclerosis. Impression: 1: No significant bone or joint abnormality. Consider correlation with MRI with contrast if there is concern for cellulitis or osteomyelitis. Reviewed, dictated and finalized at location A. Impression: 1: No significant bone or joint abnormality. Consider correlation with MRI with contrast if there is concern for cellulitis or osteomyelitis. Impression: 1: No significant bone or joint abnormality. Consider correlation with MRI with contrast if there is concern for cellulitis or osteomyelitis.
--- NOTE | ~2025-03-10 | CT_ITS ---
EXAMINATION: CT abdomen pelvis wo con DATE: 03/10/2025 15:10 INDICATION: Difficulty urinating. Hematuria with obstructive process TECHNIQUE: Computed tomography (CT) of the abdomen and pelvis was performed without intravenous contr ast. The dose-length product was 350.53 mGy-cm. COMPARISON: None. FINDINGS: Patchy opacities in the lower lungs most prominent in the left lower lobe. Differential includes atel ectasis/scarring or infiltrates. 5 mm calcified granuloma in the right lower lobe. Liver, spleen, pancreas and gallbladder are unremarkable. Kidneys no hydronephrosis. There are a few tiny nonobstructing renal stones. 4Adrenal glands are unremarkable. Abdominal aorta is not aneurysmal . Moderate of this chronic disease in the abdominal aorta. No enlarged lymph nodes in the abdomen or pelvis. Large left inguinal hernia with fat and a bowel loop in the hernia sac. Small right inguinal hernia w ith a bowel loop in the hernia sac. Moderate concentric thickening of the gonzales of the moderately distended bladder. Prostate gland is mildly enlarged. Large amount of stool. Appendix not visualized. No colitis. Bones appear osteopenic. Bony irregularity of the superior endplate of the L4 vertebral body and infe rior endplate of the L3 vertebral body. The findings may be secondary to sequelae from degenerative c hange, posttraumatic or secondary to discitis osteomyelitis. Correlate clinically. Consider an MRI of the lumbar spine with and without contrast for further assessment. Grade 1 anterolisthesis of L4 on L5. Severe narrowing of the L5-S1 level. IMPRESSION: 1. Bony irregularity of the superior endplate of the L4 vertebral body and inferior endplate of the L 3 vertebral body. The findings may be secondary to sequelae from degenerative change, posttraumatic ( compression fractures are possible) or secondary to discitis/osteomyelitis. Correlate clinically. Con trial manager an MRI of the lumbar spine with and without contrast for further assessment. 2. Moderate concentric thickening of the gonzales of the moderately distended bladder. Cystitis is suspe cted. Recommend follow-up to resolution. 3. Large left inguinal hernia with fat and a bowel loop in the hernia sac. Small right inguinal herni a with a bowel loop in the hernia sac. No CT evidence for bowel obstruction at this time. 4. Patchy opacities in the lower lungs most prominent in the left lower lobe. Differential includes a telectasis/scarring or infiltrates. Reviewed, dictated and finalized at location A. IMPRESSION: 1. Bony irregularity of the superior endplate of the L4 vertebral body and infe rior endplate of the L3 vertebral body. The findings may be secondary to sequel ae from degenerative change, posttraumatic (compression fractures are possible) or secondary to discitis/osteomyelitis. Correlate clinically. Consider an MRI of the lumbar spine with and without contrast for further assessment. 2. Moderate concentric thickening of the gonzales of the moderately distended blad michel. Cystitis is suspected. Recommend follow-up to resolution. 3. Large left inguinal hernia with fat and a bowel loop in the hernia sac. Smal l right inguinal hernia with a bowel loop in the hernia sac. No CT evidence for bowel obstruction at this time. 4. Patchy opacities in the lower lungs most prominent in the left lower lobe. D ifferential includes atelectasis/scarring or infiltrates.
[2025-03-10 08:57] VITALS: BP 133/69; PULSE 84; RESP 20; TEMP 36.7; O2SAT 96
--- NOTE | 2025-03-10 09:12 | ECG_ITS ---
Test Date: 2025-03-10 09:34:12 Measurements Intervals [place] Rate: 71 P: 0 NC: 0 QRS: -40 QRSD: 105 T: 87 QT: 392 QTc: 427 Interpretive Statements ATRIAL FIBRILLATION WITH ABERRANT CONDUCTION OR VENTRICULAR PREMATURE COMPLEXES LEFT AXIS DEVIATION INCOMPLETE RIGHT BUNDLE BRANCH BLOCK DELAYED PRECORDIAL R/S TRANSITION BORDERLINE ST-T WAVE ABNORMALITY- HIGH LATERAL LEADS ABNORMAL ECG Compared to ECG 02/25/2025 22:20:00 HEART RATE HAS DECREASED Electronically Signed On 03-10-2025 10:09:45 CDT by John Tracey D.O.
--- OUTSIDE RECORDS SUMMARY | 2025-03-10 09:30 | XMS_ITS | Encounter Summary ---
Author Organization [facility] Healthcare Address [address] [place] [address] Care Team Providers Care Livestock Rancher Name Role Phone Dimitry Kamara MD Primary Care Provider Jesusita Han MD Unavailable [phone] Encounter Details Date Type Department Care Team (Late st Contact Info) Description 03/22/2024 Orders Only [facility] [place] Information Management [address] [place] [id number] Scanning, Provider Social History Tobacco Use Types Packs/Day Years Used Date Smoking Tobacco: Every Day Smokeless Tobacco: Never Comments:Smoking History Pac ks/day: 1 Packs Alcohol Use Standard Drinks/Week Comments No 0 (1 standard drink = 0.6 oz pur e alcohol) Sex and Gender Information Value Date Recorded Sex Assigned at Not on file Legal Sex Male 7:14 PM [employer] Gender Identity Not on file Sexual Orientation [...] on filedocumented in this encounter Care Teams Livestock Rancher Relationship Specialty Start Date End Date Dimitry Kamara MD [address] [place] [address] PCP - General 10/24/16 Jesusita Han MD [address] [facility] [address] [place] [address] 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
--- OUTSIDE RECORDS SUMMARY | 2025-03-10 09:30 | XMS_ITS ---
[place] [id number] * (ABNORMAL) POC GLUCOSE (11/11/2007 11:07 PM CDT) GLUCOSE POC 169(H) 65 - 99 mg/dL [facility] Venous blood specimen (specimen) 11/11/2007 11:07 PM CDT 11/11/2007 11:07 PM CDT Jesusita Roland MD POINT OF CARE TESTING Final Result Performing Organization Address City/[facility]/ZIP Co de Phone Number [facility] [address] [place] [address] * (ABNORMAL) POC GLUCOSE (11/11/2007 10:21 PM CDT) [facility] Signature GLUCOSE POC 137(H) 65 - 99 mg/dL [facility] Venous blood specimen (specimen) 11/11/2007 10:21 PM CDT 11/11/2007 10:21 PM CDT Jesusita Roland MD POINT OF CARE TESTING Final Result Performing Organization Address [facility] Co de Phone Number [facility] [address] [place] [address] * (ABNORMAL) POC RT, BLOOD GASES (11/11/2007 10:01 PM CDT) PH ARTERIAL 7.37 7.35 - 7.45 [facility] BASE EXCESS ABG -1.6 -2.0 - 3.0 mmol/L [facility] COMMENT, GASES POC RN NOTIFIED [facility] HEMATOCRIT POC 46.0 40.0 - 48.0 % [facility] O2 SAT EST ABG POC 99 95 - 99 % [facility] POTASSIUM POC 5.3(H) 3.5 - 4.9 mmol/L [facility] PCO2 ARTERIAL 41 35 - 48 mm Hg [facility] FIO2 40 [facility] HCO3 ARTERIAL 24 22 - 26 mmol/L [facility] PATIENT'S TEMPERATURE 37.0 Degree C [facility] CALICUM IONIZED, WHOLE BLOOD 4.33(L) 4.76 - 5.16 mg/dL [facility] PEEP POC 5 [facility] PO2 ARTERIAL 137(H) 83 - 108 mm Hg [facility] SODIUM POC 131(L) 135 - 145 mmol/L [facility] OXYGEN MODE SIMV [facility] Blood specimen (specimen) 11/11/2007 10:01 PM CDT 11/11/2007 10:01 PM CDT Jesusita Roland MD CHEMISTRY ORDERABLES Final R esult Performing Organization Address City/[facility]/ZIP Co de Phone Number [facility] [address] [place] [address] * (ABNORMAL) POC GLUCOSE (11/11/2007 9:11 PM CDT) GLUCOSE POC 166(H) 65 - 99 mg/dL [facility] Venous blood specimen (specimen) 11/11/2007 9:11 PM CDT 11/11/2007 9:11 PM CDT Jesusita Roland MD POINT OF CARE TESTING Final Result [facility] [address] [place] [address] * (ABNORMAL) POC GLUCOSE (11/11/2007 8:02 PM CDT) GLUCOSE POC 127(H) 65 - 99 mg/dL [facility] Venous blood specimen (specimen) 11/11/2007 8:02 PM CDT 11/11/2007 8:02 PM CDT us Jesusita Roland MD POINT OF CARE TESTING Final Result Performing Organization Address [facility] Co de Phone Number [facility] [address] [place] [address] * (ABNORMAL) POTASSIUM LEVEL (11/11/2007 7:55 PM CDT) POTASSIUM 5.2(H) 3.5 - 4.9 mmol/L [facility] Comment: No significant hemolysis Blood specimen (specimen) 11/11/2007 7:55 PM CDT 11/11/2007 8:04 PM CDT us Mary Arellano Jr., MD CHEMISTRY ORDERABLES Fi nal Result Performing Organization Address [facility] de Phone Number [facility] [address] [place] [address] * (ABNORMAL) POC RT, BLOOD GASES (11/11/2007 5:30 PM CDT) POTASSIUM POC 4.4 3.5 - 4.9 mmol/L [facility] PCO2 ARTERIAL 45 35 - 48 mm Hg [facility] FIO2 60 [facility] HCO3 ARTERIAL 25 22 - 26 mmol/L [facility] PATIENT'S TEMPERATURE 37.0 Degree C [facility] CALICUM IONIZED, WHOLE BLOOD 4.77 4.76 - 5.16 mg/dL [facility] PEEP POC 5 [facility] PO2 ARTERIAL 128(H) 83 - 108 mm Hg [facility] SODIUM POC 133(L) 135 - 145 mmol/L [facility] OXYGEN MODE SIMV/PSV [facility] PH ARTERIAL 7.36 7.35 - 7.45 [facility] BASE EXCESS ABG -0.4 -2.0 - 3.0 mmol/L [facility] COMMENT, GASES POC NOTIFIED [facility] HEMATOCRIT POC 43.0 40.0 - 48.0 % [facility] O2 SAT EST ABG POC 99 95 - 99 % [facility] Blood specimen (specimen) 11/11/2007 5:30 PM CDT 11/11/2007 5:30 PM CDT Jesusita Roland MD CHEMISTRY ORDERABLES Final R esult Performing Organization Address City/[facility]/ZIP Co de Phone Number [facility] [address] [place] [address] * (ABNORMAL) POC GLUCOSE (11/11/2007 5:23 PM CDT) GLUCOSE POC 140(H) 65 - 99 mg/dL [facility] Venous blood specimen (specimen) 11/11/2007 5:23 PM CDT 11/11/2007 5:23 PM CDT Jesusita Roland MD POINT OF CARE TESTING Final Result Performing Organization Address [facility] Co de Phone Number [facility] [address] [place] [address] * (ABNORMAL) PT AND APTT (11/11/2007 5:14 PM CDT) PROTIME 19.0(H) 12.7 - 15.1 Seconds [facility] INR 1.6(H) 0.9 - 1.1 [facility] Comment: INR Therapeutic Range: Adult: 2.0 - 3.0 for pulmonary embolism or prophylaxis against venous thrombosis or systemic embolization. 2.0 - 3.0 for patients with tissue heart valves. 2.5 - 3.5 for patients with mechanical heart valves or post TX. Pediatric (12 years and under): 1.5 - 3.0 Although the target range in children is not well established, INR values of 1.5 - 3.0 are recommended for most patients. Higher values have been used in children with prosthetic cardiac valves and hereditary clotting disorders. (<3 days) therapeutic ranges have not been established. PTT 31.1 24.4 - 36.4 Seconds [facility] Comment: PTT Therapeutic Range: Heparin Level PTT (seconds) <0.10 units/mL <53 0.10 - 0.30 units/mL 53 - 67 0.30 - 0.70 units/mL* 67 - 95* 0.70 - 1.00 units/mL 95 - 116 *corresponds to therapeutic range for unfractionated heparin PROTIME COMMENT Slightly Hemolyzed [facility] PTT COMMENT Slightly Hemolyzed [facility] Blood specimen (specimen) 11/11/2007 5:14 PM CDT 11/11/2007 5:30 PM CDT Mary Arellano Jr., MD HEMATOLOGY ORDERABLES E dited Performing Organization Address City/[facility]/ZIP Co de Phone Number [facility] [address] [facility] [place] [address] * (ABNORMAL) MAGNESIUM LEVEL (11/11/2007 5:14 PM CDT) MAGNESIUM 2.9(H) 1.5 - 2.5 mg/dL [facility] Blood specimen (specimen) 11/11/2007 5:14 PM CDT 11/11/2007 5:30 PM CDT Mary Arellano Jr., MD CHEMISTRY ORDERABLES Fi nal Result Performing Organization Address City/[facility]/ZIP Co de Phone Number [facility] [address] [place] [address] * (ABNORMAL) CVR ONLY, CKMB/CK (11/11/2007 5:14 PM CDT) CKMB 15.8(AA) <=6.7 ng/mL [facility] Comment: Results called to Mona at 11/11/07 5:58 PM and read back verified. CKMB INTERP See Below [facility] Comment: Elevated CKMB,Consistent with Myocardial Injury. CK 156 10 - 170 U/L [facility] CARDIAC RELATIVE INDEX N/A <=4.0 [facility] Blood specimen (specimen) 11/11/2007 5:14 PM CDT 11/11/2007 5:30 PM CDT Mary Arellano Jr., MD CHEMISTRY ORDERABLES Ed ited [facility] [address] [place] [address] * (ABNORMAL) BASIC METABOLIC PANEL (11/11/2007 5:14 PM CDT) BUN 15 6 - 20 mg/dL [facility] CHLORIDE 106 96 - 108 mmol/L [facility] GLUCOSE 142(H) 65 - 99 mg/dL [facility] SODIUM 135 135 - 145 mmol/L [facility] CALCIUM 8.2(L) 8.4 - 10.2 mg/dL [facility] CO2 22 22 - 30 mmol/L [facility] CREATININE 0.87 0.67 - 1.17 mg/dL [facility] POTASSIUM 4.5 3.5 - 4.9 mmol/L [facility] Comment: Moderate hemolysis present. Can cause significant falsely elevated result. Clinical judgement necessary. Redraw if indicated. GFR, >60 >=60 mL/min/1. 7 sq meter [facility] GFR >60 >=60 mL/min/1. 7 sq meter [facility] Comment: Estimated GFR rate interpretative information for both Americans and non- Americans is available on the [facility] Intranet at: [email or web address] Select: Lab Policies and Procedures Select: Reference Ranges - GFR Blood specimen (specimen) 11/11/2007 5:14 PM CDT 11/11/2007 5:30 PM CDT Mary Arellano Jr., MD CHEMISTRY ORDERABLES Ed ited [facility] [address] [place] [address] * (ABNORMAL) CBC WITH DIFFERENTIAL (11/11/2007 5:14 PM CDT) HEMATOCRIT 45.6 40.0 - 48.0 % [facility] RDW-STDEV 46.7 37.1 - 48.7 fL [facility] RBC 4.64 4.50 - 5.40 M/uL [facility] MCHC 33.8 31.5 - 35.5 % [facility] MCV 98.3 82.0 - 99.0 fL [facility] HEMOGLOBIN 15.4 13.6 - 16.5 g/dL [facility] RDW 13.0 11.5 - 14.5 % [facility] WBC 21.8(H) 4.0 - 9.8 K/uL [facility] MCH 33.2(H) 27.2 - 32.6 pg [facility] MPV 11.7 9.3 - 12.4 fL [facility] PLATELETS 91(L) 140 - 350 K/uL [facility] PLATELET EST. Consistent w/ count Normal [facility] BASOPHILS ABSOLUTE 0.00 0.00 - 0.20 K/uL [facility] EOSINOPHILS 0 0 - 7 % [facility] MONOCYTE ABSOLUTE 1.31(H) 0.10 - 1.30 K/uL [facility] RBC MORPHOLOGY Normal Normal [facility] LYMPHOCYTES 1(L) 16 - 45 % [facility] NEUTROPHIL ABSOLUTE 20.27(H) 1.90 - 7.00 K/uL [facility] NEUTROPHILS, SEG 88(H) 45 - 70 % [facility] BASOPHILS 0 0 - 2 % [facility] EOSINOPHIL ABSOLUTE 0.00 0.00 - 0.70 K/uL [facility] MONOCYTES 6 3 - 13 % [facility] REVIEWED ON SMEAR Plt OK by Smear Rev. [facility] LYMPHOCYTE ABSOLUTE 0.22(L) 0.70 - 4.50 K/uL [facility] BANDS 5 0 - 5 % [facility] Blood specimen (specimen) 11/11/2007 5:14 PM CDT 11/11/2007 5:30 PM CDT Mary Arellano Jr., MD HEMATOLOGY ORDERABLES E dited [facility] [address] [place] [address] * XR CHEST PA OR AP (11/11/2007 5:14 PM CDT) Anatomical Region Laterality Modality Chest Other 11/11/2007 5:14 PM CDT Narrative 11/11/2007 11:27 PM CDT [facility] [address] [place], [place] [address] Admit Date: 11/02/2007 PATRICIA DUNHAM Sex: M Admit Prov: JESUSITA ROLAND Nadia Date: 1945 Primary Care Prov: MERYL FRIEDMAN CMRN: [id number] Room: [address] [place] [address] 1 SSN: [id number] IMAGING SERVICES Ordering Prov: N/A Accession Number: [id number] Interpretation CHEST, AP PORTABLE, 11/11/2007, 1725 HOURS History: Cardiac surgery. Findings: Sternal wires and mediastinal drains indicate recent cardiac surgery. Prosthetic heart valve is present. Endotracheal tube ends at the clavicles. Right internal jugular [place] catheter ends in the right pulmonary artery. Right lung is clear. Left basilar atelectasis and/or small left effusion are present. There is no pneumothorax. . Dictated by: CONRADO SCHROEDER 11/11/2007 17:39 Electronically signed by: CONRADO SCHROEDER 11/11/2007 23:27 Transcribed: 11/11/2007 17:41 SMM Procedure Note Conrado Schroeder MD - 11/11/[address] [address] Admit Date: 11/02/2007 ANIKETSHAINA PATRICIA Sex: M Admit Prov: JESUSITA ROLAND Date: 1945 Primary Care Prov: MERYL FRIEDMAN CMRN: [id number] Room: [address] [place] [address] 1 SSN: [id number] IMAGING SERVICES Ordering Prov: N/A Interpretation CHEST, AP PORTABLE, 11/11/2007, 1725 HOURS History: Cardiac surgery. Findings: Sternal wires and mediastinal drains indicate recentcardiac surgery. Prosthetic heart valve is present. Endotracheal tube ends atthe clavicles. Right internal jugular [place] catheter ends in theright pulmonary artery. Right lung is clear. Left basilar atelectasisand/or small left effusion are present. There is no pneumothorax. . Dictated by: CONRADO SCHROEDER 11/11/2007 17:39 Electronically signed by: CONRADO SCHROEDER 11/11/2007 23:27 Transcribed: 11/11/2007 17:41 SMM Mary Arellano Jr., MD DIAGNOSTIC IMAGING ORDChavo GIBSON Final Result * (ABNORMAL) POC RT, BLOOD GASES (11/11/2007 4:44 PM CDT) PO2 ARTERIAL 427(H) 83 - 108 mm Hg [facility] SODIUM POC 133(L) 135 - 145 mmol/L [facility] TCO2, ABG POC 26(H) 19 - 24 mmol/L [facility] PH ARTERIAL 7.36 7.35 - 7.45 [facility] BASE EXCESS ABG -1.2 -2.0 - 3.0 mmol/L [facility] HEMATOCRIT POC 35.0(L) 40.0 - 48.0 % [facility] O2 SAT EST ABG POC 100(H) 95 - 99 % [facility] LACTIC ACID 2.1 0.5 - 2.2 mmol/L [facility] POTASSIUM POC 4.3 3.5 - 4.9 mmol/L [facility] PCO2 ARTERIAL 43 35 - 48 mm Hg [facility] HCO3 ARTERIAL 24 22 - 26 mmol/L [facility] PATIENT'S TEMPERATURE 37.0 Degree C [facility] CALICUM IONIZED, WHOLE BLOOD 5.05 4.76 - 5.16 mg/dL [facility] GLUCOSE POC 176(H) 65 - 99 mg/dL [facility] Blood specimen (specimen) 11/11/2007 4:44 PM CDT 11/11/2007 4:44 PM CDT us Jesusita Roland MD CHEMISTRY ORDERABLES Final R esult [facility] [address] [place] [address] * (ABNORMAL) POC RT, BLOOD GASES (11/11/2007 4:17 PM CDT) GLUCOSE POC 200(H) 65 - 99 mg/dL [facility] O2 SAT EST ABG POC 100(H) 95 - 99 % [facility] SODIUM POC 132(L) 135 - 145 mmol/L [facility] PH ARTERIAL 7.34(L) 7.35 - 7.45 [facility] TCO2, ABG POC 25(H) 19 - 24 mmol/L [facility] COMMENT, GASES POC POST BYPASS [facility] PATIENT'S TEMPERATURE 37.0 Degree C [facility] POTASSIUM POC 4.6 3.5 - 4.9 mmol/L [facility] PCO2 ARTERIAL 44 35 - 48 mm Hg [facility] LACTIC ACID 2.2 0.5 - 2.2 mmol/L [facility] CALICUM IONIZED, WHOLE BLOOD 5.21(H) 4.76 - 5.16 mg/dL [facility] BASE EXCESS ABG -2.1(L) -2.0 - 3.0 mmol/L [facility] PO2 ARTERIAL 332(H) 83 - 108 mm Hg [facility] HCO3 ARTERIAL 24 22 - 26 mmol/L [facility] HEMATOCRIT POC 34.0(L) 40.0 - 48.0 % [facility] Blood specimen (specimen) 11/11/2007 4:17 PM CDT 11/11/2007 4:17 PM CDT us Jesusita Roland MD CHEMISTRY ORDERABLES Final R esult [facility] [address] [place] [address] * (ABNORMAL) POC RT, BLOOD GASES (11/11/2007 3:56 PM CDT) PATIENT'S TEMPERATURE 37.0 Degree C [facility] LACTIC ACID 2.5(H) 0.5 - 2.2 mmol/L [facility] CALICUM IONIZED, WHOLE BLOOD 4.49(L) 4.76 - 5.16 mg/dL [facility] PO2 ARTERIAL 178(H) 83 - 108 mm Hg [facility] SODIUM POC 132(L) 135 - 145 mmol/L [facility] PH ARTERIAL 7.37 7.35 - 7.45 [facility] BASE EXCESS ABG 0.5 -2.0 - 3.0 mmol/L [facility] HEMATOCRIT POC 29.0(L) 40.0 - 48.0 % [facility] GLUCOSE POC 188(H) 65 - 99 mg/dL [facility] O2 SAT EST ABG POC 100(H) 95 - 99 % [facility] POTASSIUM POC 5.4(H) 3.5 - 4.9 mmol/L [facility] TCO2, ABG POC 27(H) 19 - 24 mmol/L [facility] PCO2 ARTERIAL 45 35 - 48 mm Hg [facility] HCO3 ARTERIAL 26 22 - 26 mmol/L [facility] COMMENT, GASES POC ON BYPASS [facility] Blood specimen (specimen) 11/11/2007 3:56 PM CDT 11/11/2007 3:56 PM CDT us Jesusita Roland MD CHEMISTRY ORDERABLES Final R esult [facility] [address] [place] [address] * (ABNORMAL) POC RT, BLOOD GASES (11/11/2007 3:46 PM CDT) PATIENT'S TEMPERATURE 37.0 Degree C [facility] LACTIC ACID 2.4(H) 0.5 - 2.2 mmol/L [facility] CALICUM IONIZED, WHOLE BLOOD 4.57(L) 4.76 - 5.16 mg/dL [facility] PO2 ARTERIAL 315(H) 83 - 108 mm Hg [facility] SODIUM POC 129(L) 135 - 145 mmol/L [facility] PH ARTERIAL 7.30(L) 7.35 - 7.45 [facility] BASE EXCESS ABG -4.6(L) -2.0 - 3.0 mmol/L [facility] HEMATOCRIT POC 29.0(L) 40.0 - 48.0 % [facility] GLUCOSE POC 196(H) 65 - 99 mg/dL [facility] O2 SAT EST ABG POC 100(H) 95 - 99 % [facility] POTASSIUM POC 5.3(H) 3.5 - 4.9 mmol/L [facility] TCO2, ABG POC 23 19 - 24 mmol/L [facility] PCO2 ARTERIAL 44 35 - 48 mm Hg [facility] HCO3 ARTERIAL 22 22 - 26 mmol/L [facility] COMMENT, GASES POC ON BYPASS [facility] Blood specimen (specimen) 11/11/2007 3:46 PM CDT 11/11/2007 3:46 PM CDT us Jesusita Roland MD CHEMISTRY ORDERABLES Final R esult [facility] [address] [place] [address] * (ABNORMAL) POC RT, BLOOD GASES (11/11/2007 3:11 PM CDT) GLUCOSE POC 204(H) 65 - 99 mg/dL [facility] PCO2 ARTERIAL 39 35 - 48 mm Hg [facility] POTASSIUM POC 5.6(H) 3.5 - 4.9 mmol/L [facility] PCO2 TEMP CORRECT 35 mm Hg [facility] TCO2, ABG POC 24 19 - 24 mmol/L [facility] PATIENT'S TEMPERATURE 34.5 Degree C [facility] HCO3 ARTERIAL 23 22 - 26 mmol/L [facility] COMMENT, GASES POC ON BYPASS [facility] PO2 ARTERIAL 239(H) 83 - 108 mm Hg [facility] PO2 TEMP CORRECT 227 mm Hg [facility] LACTIC ACID 1.5 0.5 - 2.2 mmol/L [facility] CALICUM IONIZED, WHOLE BLOOD 4.45(L) 4.76 - 5.16 mg/dL [facility] PH ARTERIAL 7.38 7.35 - 7.45 [facility] PH TEMP CORRECT 7.42 [facility] SODIUM POC 129(L) 135 - 145 mmol/L [facility] O2 SAT EST ABG POC 100(H) 95 - 99 % [facility] HEMATOCRIT POC 32.0(L) 40.0 - 48.0 % [facility] BASE EXCESS ABG -1.8 -2.0 - 3.0 mmol/L [facility] Blood specimen (specimen) 11/11/2007 3:11 PM CDT 11/11/2007 3:11 PM CDT us Jesusita Roland MD CHEMISTRY ORDERABLES Final R esult [facility] [address] [place] [address] * (ABNORMAL) POC RT, BLOOD GASES (11/11/2007 2:45 PM CDT) O2 SAT EST ABG POC 100(H) 95 - 99 % [facility] BASE EXCESS ABG -0.6 -2.0 - 3.0 mmol/L [facility] GLUCOSE POC 169(H) 65 - 99 mg/dL [facility] HEMATOCRIT POC 30.0(L) 40.0 - 48.0 % [facility] PCO2 ARTERIAL 55(H) 35 - 48 mm Hg [facility] PCO2 TEMP CORRECT 49 mm Hg [facility] TCO2, ABG POC 28(H) 19 - 24 mmol/L [facility] POTASSIUM POC 5.5(H) 3.5 - 4.9 mmol/L [facility] PATIENT'S TEMPERATURE 34.5 Degree C [facility] COMMENT, GASES POC ON BYPASS [facility] HCO3 ARTERIAL 26 22 - 26 mmol/L [facility] PO2 ARTERIAL 261(H) 83 - 108 mm Hg [facility] CALICUM IONIZED, WHOLE BLOOD 4.53(L) 4.76 - 5.16 mg/dL [facility] PO2 TEMP CORRECT 249 mm Hg [facility] LACTIC ACID 1.2 0.5 - 2.2 mmol/L [facility] PH ARTERIAL 7.29(L) 7.35 - 7.45 [facility] PH TEMP CORRECT 7.32 [facility] SODIUM POC 128(L) 135 - 145 mmol/L [facility] Blood specimen (specimen) 11/11/2007 2:45 PM CDT 11/11/2007 2:45 PM CDT us Jesusita Roland MD CHEMISTRY ORDERABLES Final R esult [facility] [address] [place] [address] * MISCELLANEOUS CULTURE (11/11/2007 2:45 PM CDT) PRELIMINARY REPORT No growth 48 hours [facility] FINAL REPORT No growth 3 days [facility] 11/11/2007 2:45 PM CDT 11/11/2007 5:51 PM CDT Mary Arellano Jr., MD MICROBIOLOGY - GENERAL ORDERABLES Final Result [facility] [address] [place] [address] * PATHOLOGY (11/11/2007 2:39 PM CDT) FINAL REPORT [facility] [place] [address] [place], [place] [address] Patient: PATRICIA DUNHAM : 1945 Procedure Date: 11/11/2007 Accession Date: 11/12/2007 Case No: [id number] Ordering Dr: MARY ARELLANO Case types AW, BW, FW, NW and SH are performed by [facility], [place], [place] SURGICAL PATHOLOGY & NON-GYNECOLOGIC CYTOPATHOLOGY REPORT [...] valve cusps. The tissue is severely calcified. Soils Analyst sections are submitted in cassettes A1-2 for decalcification. Received in the second container, additionally labeled ascending aorta, is a 5.5-cm long by 4-cm diameter tubular piece of yellow-tatum fibromembranous tissue consistent with aorta. A dissecting aneurysm is not identified. The intimal surface is remarkable for a fatty streak. There is no evidence of calcification. Soils Analyst sections are submitted in cassette B1. KLA/ADRI 11.12.2007 12:50 pm Microscopic: The slides are labeled Patricia Dunham and [id number]. The aortic valve tissue shows areas of [...] fibrosis is identified. These features are nonspecific. JCL/ADRI 11.15.2007 02:13 pm Staging Form: No. ELECTRONIC SIGNATURE FOR MARY HOWARD M.D.- 11/16/07 05:25 pm INTERFACE SYSTEM 11/11/2007 2:39 PM CDT Mary Arellano Jr., MD PATHOLOGY/CYTOLOGY [facility] Final Result INTERFACE SYSTEM Refer to clinic/hospital department * (ABNORMAL) POC RT, BLOOD GASES (11/11/2007 2:14 PM CDT) PCO2 TEMP CORRECT 34 mm Hg [facility] PATIENT'S TEMPERATURE 34.5 Degree C [facility] PO2 ARTERIAL 346(H) 83 - 108 mm Hg [facility] SODIUM POC 133(L) 135 - 145 mmol/L [facility] GLUCOSE POC 117(H) 65 - 99 mg/dL [facility] PH ARTERIAL 7.42 7.35 - 7.45 [facility] PO2 TEMP CORRECT 333 mm Hg [facility] TCO2, ABG POC 26(H) 19 - 24 mmol/L [facility] POTASSIUM POC 5.0(H) 3.5 - 4.9 mmol/L [facility] HEMATOCRIT POC 31.0(L) 40.0 - 48.0 % [facility] CALICUM IONIZED, WHOLE BLOOD 4.57(L) 4.76 - 5.16 mg/dL [facility] O2 SAT EST ABG POC 100(H) 95 - 99 % [facility] HCO3 ARTERIAL 25 22 - 26 mmol/L [facility] COMMENT, GASES POC ON BYPASS [facility] PCO2 ARTERIAL 38 35 - 48 mm Hg [facility] BASE EXCESS ABG 0.2 -2.0 - 3.0 mmol/L [facility] LACTIC ACID 1.5 0.5 - 2.2 mmol/L [facility] PH TEMP CORRECT 7.46 [facility] Blood specimen (specimen) 11/11/2007 2:14 PM CDT 11/11/2007 2:14 PM CDT us Jesusita Roland MD CHEMISTRY ORDERABLES Final R esult [facility] [address] [facility] [place] [address] * (ABNORMAL) POC RT, BLOOD GASES (11/11/2007 2:07 PM CDT) PCO2 VENOUS 46 38 - 50 mm Hg [facility] PCO2 TEMP CORRECT 40 mm Hg [facility] TCO2, MVBG POC 27(H) 22 - 26 mmol/L [facility] POTASSIUM POC 5.4(H) 3.5 - 4.9 mmol/L [facility] PATIENT'S TEMPERATURE 34.0 Degree C [facility] COMMENT, GASES POC ON BYPASS [facility] HCO3 MIXED VENOUS 26 22 - 29 mmol/L [facility] PO2 MVBG 58(H) 25 - 40 mm Hg [facility], WHOLE BLOOD 4.57(L) 4.76 - 5.16 mg/dL [facility] PO2 TEMP CORRECT 47 mm Hg [facility] LACTIC ACID 1.6 0.5 - 2.2 mmol/L [facility] PH MVBG 7.36 7.32 - 7.43 [facility] PH TEMP CORRECT 7.40 [facility] SODIUM POC 134(L) 135 - 145 mmol/L [facility] O2 SAT EST MVBG POC 89(H) 40 - 70 % [facility] BASE EXCESS VENOUS 0.3 -2.0 - 3.0 mmol/L [facility] GLUCOSE POC 110(H) 65 - 99 mg/dL [facility] HEMATOCRIT POC 30.0(L) 40.0 - 48.0 % [facility] Blood specimen (specimen) 11/11/2007 2:07 PM CDT 11/11/2007 2:07 PM CDT us Jesusita Roland MD CHEMISTRY ORDERABLES Final R esult [facility] [address] [facility] [address] * (ABNORMAL) POC RT, BLOOD GASES (11/11/2007 1:50 PM CDT) PATIENT'S TEMPERATURE 37.0 Degree C [facility] GLUCOSE POC 116(H) 65 - 99 mg/dL [facility] CALICUM IONIZED, WHOLE BLOOD 4.53(L) 4.76 - 5.16 mg/dL [facility] PO2 ARTERIAL 476(H) 83 - 108 mm Hg [facility] TCO2, ABG POC 27(H) 19 - 24 mmol/L [facility] SODIUM POC 134(L) 135 - 145 mmol/L [facility] PH ARTERIAL 7.39 7.35 - 7.45 [facility] BASE EXCESS ABG 0.8 -2.0 - 3.0 mmol/L [facility] HEMATOCRIT POC 40.0 40.0 - 48.0 % [facility] O2 SAT EST ABG POC 100(H) 95 - 99 % [facility] POTASSIUM POC 4.2 3.5 - 4.9 mmol/L [facility] LACTIC ACID 1.3 0.5 - 2.2 mmol/L [facility] PCO2 ARTERIAL 43 35 - 48 mm Hg [facility] HCO3 ARTERIAL 26 22 - 26 mmol/L [facility] Blood specimen (specimen) 11/11/2007 1:50 PM CDT 11/11/2007 1:50 PM CDT us Jesusita Roland MD CHEMISTRY ORDERABLES Final R esult [facility] [address] [facility] [address] [place] [address] * (ABNORMAL) POC RT, BLOOD GASES (11/11/2007 12:52 PM CDT) COMMENT, GASES POC POST INDUCTION [facility] HCO3 ARTERIAL 27(H) 22 - 26 mmol/L [facility] PATIENT'S TEMPERATURE 37.0 Degree C [facility] CALICUM IONIZED, WHOLE BLOOD 4.57(L) 4.76 - 5.16 mg/dL [facility] LACTIC ACID 0.9 0.5 - 2.2 mmol/L [facility] PO2 ARTERIAL 487(H) 83 - 108 mm Hg [facility] SODIUM POC 134(L) 135 - 145 mmol/L [facility] PH ARTERIAL 7.40 7.35 - 7.45 [facility] BASE EXCESS ABG 1.4 -2.0 - 3.0 mmol/L [facility] GLUCOSE POC 119(H) 65 - 99 mg/dL [facility] HEMATOCRIT POC 47.0 40.0 - 48.0 % [facility] O2 SAT EST ABG POC 100(H) 95 - 99 % [facility] TCO2, ABG POC 28(H) 19 - 24 mmol/L [facility] POTASSIUM POC 4.0 3.5 - 4.9 mmol/L [facility] PCO2 ARTERIAL 43 35 - 48 mm Hg [facility] Blood specimen (specimen) 11/11/2007 12:52 PM CDT 11/11/2007 12:52 PM CDT Jesusita Roland MD CHEMISTRY ORDERABLES Final R esult [facility] [address] [place] [address] * (ABNORMAL) POC GLUCOSE (11/11/2007 7:03 AM CDT) GLUCOSE POC 116(H) 65 - 99 mg/dL [facility] Venous blood specimen (specimen) 11/11/2007 7:03 AM CDT 11/11/2007 7:03 AM CDT Jesusita Roland MD POINT OF CARE TESTING Final Result [facility] [address] [place] [address] * (ABNORMAL) POC GLUCOSE (11/10/2007 8:15 PM CDT) GLUCOSE POC 131(H) 65 - 99 mg/dL [facility] Venous blood specimen (specimen) 11/10/2007 8:15 PM CDT 11/10/2007 8:15 PM CDT us Jesusita Roland MD POINT OF CARE TESTING Final Result [facility] [address] [place] [address] * (ABNORMAL) POC GLUCOSE (11/10/2007 5:28 PM CDT) GLUCOSE POC 100(H) 65 - 99 mg/dL [facility] Venous blood specimen (specimen) 11/10/2007 5:28 PM CDT 11/10/2007 5:28 PM CDT Jesusita Roland MD POINT OF CARE TESTING Final Result Performing Organization Address City/[facility]/ZIP Co de Phone Number [facility] [address] [place] [address] * (ABNORMAL) POC GLUCOSE (11/10/2007 11:41 AM CDT) GLUCOSE POC 184(H) 65 - 99 mg/dL [facility] Venous blood specimen (specimen) 11/10/2007 11:41 AM CDT 11/10/2007 11:41 AM CDT Jesusita Roland MD POINT OF CARE TESTING Final Result [facility] [address] [place] [address] * (ABNORMAL) POC GLUCOSE (11/10/2007 7:36 AM CDT) GLUCOSE POC 108(H) 65 - 99 mg/dL [facility] Venous blood specimen (specimen) 11/10/2007 7:36 AM CDT 11/10/2007 7:36 AM CDT us Jesusita Roland MD POINT OF CARE TESTING Final Result Performing Organization Address [facility] Co de Phone Number [facility] [address] [place] [address] * (ABNORMAL) POC GLUCOSE (11/09/2007 8:15 PM CDT) GLUCOSE POC 170(H) 65 - 99 mg/dL [facility] Venous blood specimen (specimen) 11/09/2007 8:15 PM CDT 11/09/2007 8:15 PM CDT Jesusita Roland MD POINT OF CARE TESTING Final Result Performing Organization Address [facility] de Phone Number [facility] [address] [place] [address] * (ABNORMAL) POC GLUCOSE (11/09/2007 5:51 PM CDT) GLUCOSE POC 151(H) 65 - 99 mg/dL [facility] Venous blood specimen (specimen) 11/09/2007 5:51 PM CDT 11/09/2007 5:51 PM CDT Jesusita Roland MD POINT OF CARE TESTING Final Result Performing Organization Address [facility] Co de Phone Number [facility] [address] [place] [address] * (ABNORMAL) POC GLUCOSE (11/09/2007 11:34 AM CDT) GLUCOSE POC 146(H) 65 - 99 mg/dL [facility] Venous blood specimen (specimen) 11/09/2007 11:34 AM CDT 11/09/2007 11:34 AM CDT us Jesusita Roland MD POINT OF CARE TESTING Final Result [facility] [address] [place] [address] * (ABNORMAL) POC GLUCOSE (11/09/2007 8:35 AM CDT) GLUCOSE POC 111(H) 65 - 99 mg/dL [facility] Venous blood specimen (specimen) 11/09/2007 8:35 AM CDT 11/09/2007 8:35 AM CDT Jesusita Roland MD POINT OF CARE TESTING Final Result [facility] [address] [place] [address] * XR CHEST PA AND LATERAL (11/09/2007 7:32 AM CDT) Anatomical Region Laterality Modality Chest Other 11/09/2007 7:32 AM CDT Narrative 11/09/2007 10:56 AM CDT Ordered by SOFYA [facility]CE [facility] [place] [address] [place], [place] [address] Admit Date: 11/02/2007 PATRICIA DUNHAM Sex: M Admit Prov: JESUSITA ROLAND Date: 1945 Primary Care Prov: MERYL FRIEDMAN CMRN: [id number] Room: [address] [place] [address] SSN: [id number] IMAGING SERVICES Ordering Prov: N/A Accession Number: [id number] Interpretation Exam: Chest x-ray PA and lateral. [...] Rios - 11/09/2007 Ordered by SOFYA PRINCE [facility] [place] [address] [place], [place] [address] Admit Date: 11/02/2007 PATRICIA DUNHAM Sex: M Admit Prov: JESUSITA ROLAND Date: 1945 Primary Care Prov: AISHALopezPASQUALE MERYL Arvizu CMRN: [id number] Room: [address] [place] [address] SSN: [id number] IMAGING SERVICES Ordering Prov: N/A Interpretation Exam: [...] RIOS 11/09/2007 10:56 Transcribed: 11/09/2007 09:44 AMK Historical Provider DIAGNOSTIC IMAGING ORDERABLE S Final Result * (ABNORMAL) DIGOXIN LEVEL (11/09/2007 5:45 AM CDT) DIGOXIN LEVEL 0.7(L) 0.8 - 2.0 ng/mL [facility] Comment:Digoxin Toxic Level = >2.0 ng/mL Blood specimen (specimen) 11/09/2007 5:45 AM CDT 11/09/2007 6:23 AM CDT Sofya HAMM CHEMISTRY ORDERABLES Final Res ult [facility] [address] [place] [address] * (ABNORMAL) COMPREHENSIVE METABOLIC PANEL (11/09/2007 5:45 AM CDT) CO2 25 22 - 30 mmol/L [facility] TOTAL PROTEIN 6.5 6.3 - 8.6 g/dL [facility] SODIUM 136 135 - 145 mmol/L [facility] POTASSIUM 3.9 3.5 - 4.9 mmol/L [facility] GLUCOSE 115(H) 65 - 99 mg/dL [facility] AST 28 12 - 38 U/L [facility] BUN 18 6 - 20 mg/dL [facility] CALCIUM 8.4 8.4 - 10.2 mg/dL [facility] ALBUMIN 3.6 3.4 - 4.8 g/dL [facility] CHLORIDE 102 96 - 108 mmol/L [facility] CREATININE 0.98 0.67 - 1.17 mg/dL [facility] ALT 35 0 - 41 U/L [facility] ALKALINE PHOSPHATASE 44 40 - 129 U/L [facility] BILIRUBIN TOTAL 0.6 0.2 - 1.0 mg/dL [facility] GFR, >60 >=60 mL/min/1. 7 sq meter [facility] GFR >60 >=60 mL/min/1. 7 sq meter [facility] Comment: Estimated GFR rate interpretative information for both Americans and non- Americans is available on the [facility] Intranet at: [email or web address] Select: Lab Policies and Procedures Select: Reference Ranges - GFR Blood specimen (specimen) 11/09/2007 5:45 AM CDT 11/09/2007 6:23 AM CDT Sofya HAMM CHEMISTRY ORDERABLES Edited [facility] [address] [place] [address] * (ABNORMAL) CBC WITH DIFFERENTIAL (11/09/2007 5:45 AM CDT) WBC 9.8 4.0 - 9.8 K/uL [facility] MCH 32.9(H) 27.2 - 32.6 pg [facility] MPV 11.3 9.3 - 12.4 fL [facility] HEMATOCRIT 49.5(H) 40.0 - 48.0 % [facility] RDW-STDEV 47.2 37.1 - 48.7 fL [facility] RBC 5.02 4.50 - 5.40 M/uL [facility] MCHC 33.3 31.5 - 35.5 % [facility] MCV 98.6 82.0 - 99.0 fL [facility] PLATELETS 172 140 - 350 K/uL [facility] HEMOGLOBIN 16.5 13.6 - 16.5 g/dL [facility] RDW 13.1 11.5 - 14.5 % [facility] LYMPHOCYTE ABSOLUTE 1.84 0.70 - 4.50 K/uL [facility] BASOPHILS 0 0 - 2 % [facility] BASOPHILS ABSOLUTE 0.03 0.00 - 0.20 K/uL [facility] MONOCYTES 12 3 - 13 % [facility] MONOCYTE ABSOLUTE 1.17 0.10 - 1.30 K/uL [facility] NEUTROPHILS 67 45 - 70 % [facility] NEUTROPHIL ABSOLUTE 6.50 1.90 - 7.00 K/uL [facility] EOSINOPHILS 2 0 - 7 % [facility] EOSINOPHIL ABSOLUTE 0.21 0.00 - 0.70 K/uL [facility] LYMPHOCYTES 19 16 - 45 % [facility] Blood specimen (specimen) 11/09/2007 5:45 AM CDT 11/09/2007 6:23 AM CDT Sofya HAMM HEMATOLOGY ORDERABLES Edited INTERFACE SYSTEM Refer to clinic/hospital department [facility] [address] [place] [address] * (ABNORMAL) URINALYSIS (11/09/2007 4:10 AM CDT) LEUKOCYTE ESTERASE UA Negative Negative [facility] RBC UA 1 0 - 3 /HPF [facility] SPECIFIC GRAVITY UA 1.044(H) 1.001 - 1.035 [facility] Comment: Results confirmed by 2nd methodology. BLOOD UA Negative Negative [facility] GLUCOSE UA 3+(A) Negative [facility] Comment: Verified by repeat analysis. COLOR UA Yellow [facility] NITRITE UA Negative Negative [facility] UROBILINOGEN UA 4(H) <=1 mg/dL [facility] Comment: Verified by repeat analysis. EPITHELIAL CELLS, URINE 0-2 /HPF [facility] PH UA 6.0 5.0 - 8.0 [facility] KETONES UA 1+(A) Negative [facility] WBC UA 1 0 - 3 /HPF [facility] CLARITY UA Clear Clear [facility] PROTEIN UA Trace(A) Negative [facility] BILIRUBIN UA Negative Negative [facility] 11/09/2007 4:10 AM CDT 11/09/2007 4:36 AM CDT us James Hopkins MD URINE ORDERABLES Final Result Performing Organization Address [facility] Co de Phone Number [facility] [address] [place] [address] * URINALYSIS WITH REFLEX CULTURE (11/09/2007 4:10 AM CDT) URINE CULTURE ORDER Not indicated [facility] Comment: Criteria for a reflex culture [...] URINE ORDERABLES Final Result Performing Organization Address [facility] de Phone Number [facility] [address] [place] [address] * (ABNORMAL) POC GLUCOSE (11/08/2007 8:21 PM CDT) GLUCOSE POC 142(H) 65 - 99 mg/dL [facility] Venous blood specimen (specimen) 11/08/2007 8:21 PM CDT 11/08/2007 8:21 PM CDT us Jesusita Roland MD POINT OF CARE TESTING Final Result Performing Organization Address [facility] Co de Phone Number [facility] [address] [place] [address] * (ABNORMAL) POC GLUCOSE (11/08/2007 4:56 PM CDT) GLUCOSE POC 100(H) 65 - 99 mg/dL [facility] Venous blood specimen (specimen) 11/08/2007 4:56 PM CDT 11/08/2007 4:56 PM CDT Jesusita Roland MD POINT OF CARE TESTING Final Result Performing Organization Address City/[facility]/ZIP Co de Phone Number [facility] [address] [place] [place] [address] * (ABNORMAL) POC GLUCOSE (11/08/2007 11:39 AM CDT) GLUCOSE POC 112(H) 65 - 99 mg/dL [facility] Venous blood specimen (specimen) 11/08/2007 11:39 AM CDT 11/08/2007 11:39 AM CDT Jesusita Roland MD POINT OF CARE TESTING Final Result Performing Organization Address [facility] Co de Phone Number [facility] [address] [place] [address] * POC GLUCOSE (11/08/2007 7:22 AM CDT) GLUCOSE POC 93 65 - 99 mg/dL [facility] Venous blood specimen (specimen) 11/08/2007 7:22 AM CDT 11/08/2007 7:22 AM CDT Jesusita Roland MD POINT OF CARE TESTING Final Result Performing Organization Address City/[facility]/ZIP Co de Phone Number [facility] [address] [place] [address] * (ABNORMAL) POC GLUCOSE (11/07/2007 8:42 PM CDT) COMMENT, GLU POC Notified RN [facility] GLUCOSE POC 149(H) 65 - 99 mg/dL [facility] Venous blood specimen (specimen) 11/07/2007 8:42 PM CDT 11/07/2007 8:42 PM CDT us Jesusita Roland MD POINT OF CARE TESTING Final Result [facility] [address] [place] [address] * (ABNORMAL) POC GLUCOSE (11/07/2007 4:44 PM CDT) GLUCOSE POC 137(H) 65 - 99 mg/dL [facility] Venous blood specimen (specimen) 11/07/2007 4:44 PM CDT 11/07/2007 4:44 PM CDT Jesusita Roland MD POINT OF CARE TESTING Final Result Performing Organization Address City/[facility]/ZIP Co de Phone Number [facility] [address] [place] [place] [address] * POC GLUCOSE (11/07/2007 11:38 AM CDT) GLUCOSE POC 84 65 - 99 mg/dL [facility] Venous blood specimen (specimen) 11/07/2007 11:38 AM CDT 11/07/2007 11:38 AM CDT Jesusita Roland MD POINT OF CARE TESTING Final Result [facility] [address] [place] [address] * DIGOXIN LEVEL (11/07/2007 9:18 AM CDT) DIGOXIN LEVEL 1.4 0.8 - 2.0 ng/mL [facility] Comment:Digoxin Toxic Level = >2.0 ng/mL Blood specimen (specimen) 11/07/2007 9:18 AM CDT 11/07/2007 9:36 AM CDT Domingo Teran MD CHEMISTRY ORDERABLES Final R esult Performing Organization Address [facility] Co de Phone Number [facility] [address] [place] [address] * (ABNORMAL) PROTIME-INR (11/07/2007 9:18 AM CDT) PROTIME 15.4(H) 12.7 - 15.1 Seconds [facility] INR 1.2(H) 0.9 - 1.1 [facility] Comment: INR Therapeutic Range: Adult: 2.0 - 3.0 for pulmonary embolism or prophylaxis against venous thrombosis or systemic embolization. 2.0 - 3.0 for patients with tissue heart valves. 2.5 - 3.5 for patients with mechanical heart valves or post TX. Pediatric (12 years and under): 1.5 - [...] 11/07/2007 9:36 AM CDT Domingo Teran MD HEMATOLOGY ORDERABLES Final Result Performing Organization Address City/[facility] Co de Phone Number [facility] [address] [place] [address] * (ABNORMAL) BASIC METABOLIC PANEL (11/07/2007 9:18 AM CDT) CREATININE 1.00 0.67 - 1.17 mg/dL [facility] POTASSIUM 4.1 3.5 - 4.9 mmol/L [facility] BUN 15 6 - 20 mg/dL [facility] CHLORIDE 102 96 - 108 mmol/L [facility] GLUCOSE 186(H) 65 - 99 mg/dL [facility] SODIUM 139 135 - 145 mmol/L [facility] CALCIUM 9.1 8.4 - 10.2 mg/dL [facility] CO2 27 22 - 30 mmol/L [facility] GFR, >60 >=60 mL/min/1. 7 sq meter [facility] GFR >60 >=60 mL/min/1. 7 sq meter [facility] Comment: Estimated GFR rate interpretative information for both Americans and non- Americans is available on the [facility] Intranet at: [email or web address] Select: Lab Policies and Procedures Select: Reference Ranges - GFR Blood specimen (specimen) 11/07/2007 9:18 AM CDT 11/07/2007 9:36 AM CDT us Domingo Teran MD CHEMISTRY ORDERABLES Edited Performing Organization Address City/[facility]/ZIP Co de Phone Number [facility] [address] [facility] [place] [place] [address] * POC GLUCOSE (11/07/2007 7:22 AM CDT) GLUCOSE POC 87 65 - 99 mg/dL [facility] Venous blood specimen (specimen) 11/07/2007 7:22 AM CDT 11/07/2007 7:22 AM CDT us Jesusita Roland MD POINT OF CARE TESTING Final Result Performing Organization Address [facility] Co de Phone Number [facility] [address] [facility] [address] [facility] [place] [address] * POC GLUCOSE (11/06/2007 8:53 PM CDT) GLUCOSE POC 93 65 - 99 mg/dL [facility] Venous blood specimen (specimen) 11/06/2007 8:53 PM CDT 11/06/2007 8:53 PM CDT us Jesusita Roland MD POINT OF CARE TESTING Final Result Performing Organization Address City/[facility]/ZIP Co de Phone Number [facility] [address] [place] [place] [place] [address] * POC GLUCOSE (11/06/2007 4:42 PM CDT) GLUCOSE POC 95 65 - 99 mg/dL [facility] Venous blood specimen (specimen) 11/06/2007 4:42 PM CDT 11/06/2007 4:42 PM CDT Jesusita Roland MD POINT OF CARE TESTING Final Result Performing Organization Address City/[facility]/ZIP Co de Phone Number [facility] [address] [place] [address] * POC GLUCOSE (11/06/2007 11:32 AM CDT) GLUCOSE POC 96 65 - 99 mg/dL [facility] Venous blood specimen (specimen) 11/06/2007 11:32 AM CDT 11/06/2007 11:32 AM CDT Jesusita Roland MD POINT OF CARE TESTING Final Result Performing Organization Address City/[facility]/ZIP Co de Phone Number [facility] [address] [place] [place] [address] * (ABNORMAL) POC GLUCOSE (11/06/2007 7:27 AM CDT) GLUCOSE POC 108(H) 65 - 99 mg/dL [facility] Venous blood specimen (specimen) 11/06/2007 7:27 AM CDT 11/06/2007 7:27 AM CDT Jesusita Roland MD POINT OF CARE TESTING Final Result Performing Organization Address [facility] Co de Phone Number [facility] [address] [place] [address] * (ABNORMAL) POC GLUCOSE (11/05/2007 8:02 PM CDT) GLUCOSE POC 160(H) 65 - 99 mg/dL [facility] Venous blood specimen (specimen) 11/05/2007 8:02 PM CDT 11/05/2007 8:02 PM CDT Jesusita Roland MD POINT OF CARE TESTING Final Result Performing Organization Address [facility] Co de Phone Number [facility] [address] [place] [address] * POC GLUCOSE (11/05/2007 4:54 PM CDT) GLUCOSE POC 91 65 - 99 mg/dL [facility] Venous blood specimen (specimen) 11/05/2007 4:54 PM CDT 11/05/2007 4:54 PM CDT Jesusita Roland MD POINT OF CARE TESTING Final Result Performing Organization Address [facility] Co de Phone Number [facility] [address] [place] [address] * (ABNORMAL) HEMOGLOBIN A1C (11/05/2007 3:37 PM CDT) GLUCOSE, MEAN BLOOD 161 mg/dL [facility] HEMOGLOBIN A1C 6.7(H) 4.1 - 6.1 % of Hgb [facility] Blood specimen (specimen) 11/05/2007 3:37 PM CDT 11/05/2007 3:49 PM CDT Kandis Vásquez MD CHEMISTRY ORDERABLES Final Result Performing Organization Address [facility] Co de Phone Number [facility] [address] [place] [address] * (ABNORMAL) POC GLUCOSE (11/05/2007 11:30 AM CDT) GLUCOSE POC 62(L) 65 - 99 mg/dL [facility] Venous blood specimen (specimen) 11/05/2007 11:30 AM CDT 11/05/2007 11:30 AM CDT Jesusita Roland MD POINT OF CARE TESTING Final Result Performing Organization Address [facility] Co de Phone Number [facility] [address] [place] [address] * POC GLUCOSE (11/05/2007 7:41 AM CDT) GLUCOSE POC 88 65 - 99 mg/dL [facility] Venous blood specimen (specimen) 11/05/2007 7:41 AM CDT 11/05/2007 7:41 AM CDT Jesusita Roland MD POINT OF CARE TESTING Final Result Performing Organization Address [facility] Co de Phone Number [facility] [address] [address] * (ABNORMAL) BASIC METABOLIC PANEL (11/05/2007 4:30 AM CDT) BUN 19 6 - 20 mg/dL [facility] CHLORIDE 101 96 - 108 mmol/L [facility] GLUCOSE 104(H) 65 - 99 mg/dL [facility] SODIUM 138 135 - 145 mmol/L [facility] CALCIUM 8.4 8.4 - 10.2 mg/dL [facility] CO2 26 22 - 30 mmol/L [facility] CREATININE 1.04 0.67 - 1.17 mg/dL [facility] POTASSIUM 4.0 3.5 - 4.9 mmol/L [facility] GFR, >60 >=60 mL/min/1. 7 sq meter [facility] GFR >60 >=60 mL/min/1. 7 sq meter [facility] Comment: Estimated GFR rate interpretative information for both Americans and non- Americans is available on the [facility] Intranet at: [email or web address] Select: Lab Policies and Procedures Select: Reference Ranges - GFR Blood specimen (specimen) 11/05/2007 4:30 AM CDT 11/05/2007 5:22 AM CDT us Jesusita Roland MD CHEMISTRY ORDERABLES Edited [facility] [place] [address] * CLOSTRIDIUM DIFFICILE TOXIN (11/04/2007 11:20 PM [...] Performing Organization Address City/[facility]/ZIP Co de Phone Number INTERFACE SYSTEM Refer to clinic/hospital department * (ABNORMAL) POC GLUCOSE (11/04/2007 8:02 PM CDT) GLUCOSE POC 111(H) 65 - 99 mg/dL [facility] Venous blood specimen (specimen) 11/04/2007 8:02 PM CDT 11/04/2007 8:02 PM CDT us Jesusita Roland MD POINT OF CARE TESTING Final Result Performing Organization Address City/[facility]/ZIP Co de Phone Number [facility] [address] [place] [address] * (ABNORMAL) POC GLUCOSE (11/04/2007 4:07 PM CDT) GLUCOSE POC 138(H) 65 - 99 mg/dL [facility] Venous blood specimen (specimen) 11/04/2007 4:07 PM CDT 11/04/2007 4:07 PM CDT us Jesusita Roland MD POINT OF CARE TESTING Final Result Performing Organization Address City/[facility]/ZIP Co de Phone Number [facility] [address] [place] [address] * POC GLUCOSE (11/04/2007 11:35 AM CDT) GLUCOSE POC 92 65 - 99 mg/dL [facility] Venous blood specimen (specimen) 11/04/2007 11:35 AM CDT 11/04/2007 11:35 AM CDT Jesusita Roland MD POINT OF CARE TESTING Final Result Performing Organization Address City/[facility]/ZIP Co de Phone Number [facility] [address] [place] [address] * (ABNORMAL) POC GLUCOSE (11/04/2007 7:15 AM CDT) GLUCOSE POC 146(H) 65 - 99 mg/dL [facility] Venous blood specimen (specimen) 11/04/2007 7:15 AM CDT 11/04/2007 7:15 AM CDT Jesusita Roland MD POINT OF CARE TESTING Final Result Performing Organization Address City/[facility]/ZIP Co de Phone Number [facility] [address] [place] [address] * (ABNORMAL) BASIC METABOLIC PANEL (11/04/2007 4:35 AM CDT) CO2 25 22 - 30 mmol/L [facility] CREATININE 1.04 0.67 - 1.17 mg/dL [facility] POTASSIUM 3.9 3.5 - 4.9 mmol/L [facility] BUN 20 6 - 20 mg/dL [facility] CHLORIDE 102 96 - 108 mmol/L [facility] GLUCOSE 90 65 - 99 mg/dL [facility] SODIUM 136 135 - 145 mmol/L [facility] CALCIUM 8.3(L) 8.4 - 10.2 mg/dL [facility] GFR, >60 >=60 mL/min/1. 7 sq meter [facility] GFR >60 >=60 mL/min/1. 7 sq meter [facility] Comment: Estimated GFR rate interpretative information for both Americans and non- Americans is available on the [facility] Intranet at: [email or web address] Select: Lab Policies and Procedures Select: Reference Ranges - GFR Blood specimen (specimen) 11/04/2007 4:35 AM CDT 11/04/2007 5:37 AM CDT Jesusita Roland MD CHEMISTRY ORDERABLES Edited [facility] [address] [place] [address] * (ABNORMAL) PROTIME-INR (11/04/2007 4:35 AM CDT) INR 1.5(H) 0.9 - 1.1 [facility] Comment: INR Therapeutic Range: Adult: 2.0 - 3.0 for pulmonary embolism or prophylaxis against venous thrombosis or systemic embolization. 2.0 - 3.0 for patients with tissue heart valves. 2.5 - 3.5 for patients with mechanical heart valves or post TX. Pediatric (12 years and under): 1.5 - 3.0 Although the target range in children is not well established, INR values of 1.5 - 3.0 are recommended for most patients. Higher values have been used in children with prosthetic cardiac valves and hereditary clotting disorders. (<3 days) therapeutic ranges have not been established. PROTIME 18.1(H) 12.7 - 15.1 Seconds [facility] Blood specimen (specimen) 11/04/2007 4:35 AM CDT 11/04/2007 5:37 AM CDT us Jesusita Roland MD HEMATOLOGY ORDERABLES Final Result [facility] [address] [place] [address] * (ABNORMAL) CBC WITH DIFFERENTIAL (11/04/2007 4:35 AM CDT) Pathologist [facility] HEMATOCRIT 45.9 40.0 - 48.0 % [facility] RDW-STDEV 51.2(H) 37.1 - 48.7 fL [facility] RBC 4.57 4.50 - 5.40 M/uL [facility] MCHC 32.7 31.5 - 35.5 % [facility] MCV 100.4(H) 82.0 - 99.0 fL [facility] PLATELETS 162 140 - 350 K/uL [facility] HEMOGLOBIN 15.0 13.6 - 16.5 g/dL [facility] RDW 14.1 11.5 - 14.5 % [facility] WBC 7.2 4.0 - 9.8 K/uL [facility] MCH 32.8(H) 27.2 - 32.6 pg [facility] MPV 11.4 9.3 - 12.4 fL [facility] BASOPHILS ABSOLUTE 0.07 0.00 - 0.20 K/uL [facility] MONOCYTES 16(H) 3 - 13 % [facility] MONOCYTE ABSOLUTE 1.15 0.10 - 1.30 K/uL [facility] NEUTROPHILS 64 45 - 70 % [facility] NEUTROPHIL ABSOLUTE 4.55 1.90 - 7.00 K/uL [facility] EOSINOPHILS 1 0 - 7 % [facility] EOSINOPHIL ABSOLUTE 0.07 0.00 - 0.70 K/uL [facility] LYMPHOCYTES 18 16 - 45 % [facility] LYMPHOCYTE ABSOLUTE 1.31 0.70 - 4.50 K/uL [facility] BASOPHILS 1 0 - 2 % [facility] Blood specimen (specimen) 11/04/2007 4:35 AM CDT 11/04/2007 5:37 AM CDT Jesusita Roland MD HEMATOLOGY ORDERABLES Edited INTERFACE SYSTEM Refer to clinic/hospital department [facility] [address] [place] [place] [address] * SPUTUM CULTURE WITH GRAM STAIN (11/03/2007 [...] swab is less sensitive for viral detection. Kandis Vásquez MD MICROBIOLOGY - GENERAL ORD ERABLES Final Result Performing Organization Address City/[facility] Co de Phone Number INTERFACE SYSTEM Refer to clinic/hospital department * POC GLUCOSE (11/03/2007 8:18 PM CDT) GLUCOSE POC 98 65 - 99 mg/dL [facility] Venous blood specimen (specimen) 11/03/2007 8:18 PM CDT 11/03/2007 8:18 PM CDT Jesusita Roland MD POINT OF CARE TESTING Final Result Performing Organization Address [facility] Co de Phone Number [facility] [address] [place] [address] * ECHOCARDIOGRAM COMPLETE (11/03/2007 4:41 PM CDT) Narrative INTERFACE SYSTEM - 11/03/2007 4:41 [place] [address] [email or web address] Transthoracic Echocardiogram Patient: Patricia Dunham Study ID: Adult Echo Gender: M : 1945 Age: 62 years Race: 1 Room: Bed: Height: 70 in ( 178 cm ) Study Date: November 03, 2007 Patient status: Inpatient Weight: 217.58 lb ( 98.9 kg ) Access. #: [id number] POC: Ordering: Milton Consulting: Grant Attending MD: [...] 16:24:28 Procedure Note Provider, Historical - 11/03/[address] [address]Qcgyz: [email or web address] Transthoracic Echocardiogram Patient: Patricia Dunham Study ID: Adult Echo Gender: M : 1945 Age: 62 years Race: 1 Room: Bed: Height: 70 in ( 178 cm ) Study Date: November 03, 2007 Patient status: Inpatient Weight: 217.58 lb ( 98.9 kg ) Access. #: [id number] POC: Ordering: Milton Consulting: Grant Attending MD: [...] Jesusita Roland MD US ORDERABLES Final Result INTERFACE SYSTEM Refer to clinic/hospital department * (ABNORMAL) POC GLUCOSE (11/03/2007 4:33 PM CDT) GLUCOSE POC 149(H) 65 - 99 mg/dL [facility] Venous blood specimen (specimen) 11/03/2007 4:33 PM CDT 11/03/2007 4:33 PM CDT us Jesusita Roland MD POINT OF CARE TESTING Final Result [facility] [address] [place] [address] * US DOPPLER ARTERIAL LEGS BILATERAL (11/03/2007 3:33 PM CDT) Anatomical Region Laterality Modality Lower Extremity Other Narrative 11/03/2007 3:33 PM CDT Please type in written order in Special Instructions field. [facility] [address] [place] [address] [email or web address] [facility] Peripheral Venous Study Patient: Patricia Dunham Study ID: BLOOD FLOW STUDY Gender: M : 1945 Age: 62 years Race: 1 Room: Bed: Height: Study Date: November 03, 2007 Patient status: Inpatient Weight: Access. #: [id number] POC: Grain Elevator Motor Starter: Sandy Ordering: Milton Consulting: Grant Attending MD: [...] in written order in Special Instructions field. [facility] [address] [place] [address] [email or web address] [facility] Peripheral Venous Study Patient: Patricia Dunham Study ID: BLOOD FLOW STUDY Gender: M : 1945 Age: 62 years Race: 1 Room: Bed: Height: Study Date: November 03, 2007 Patient status: Inpatient Weight: Access. #: [id number] POC: Grain Elevator Motor Starter: Sandy Ordering: Milton Consulting: Grant Attending MD: [...] Performing Organization Address City/[facility] Co de Phone Number INTERFACE SYSTEM Refer to clinic/hospital department * (ABNORMAL) POC GLUCOSE (11/03/2007 11:36 AM CDT) GLUCOSE POC 136(H) 65 - 99 mg/dL [facility] Venous blood specimen (specimen) 11/03/2007 11:36 AM CDT 11/03/2007 11:36 AM CDT us Jesusita Roland MD POINT OF CARE TESTING Final Result Performing Organization Address [facility] de Phone Number [facility] [address] [place] [place] [address] * TROPONIN (W/REFLEX CKMB/CK) (11/03/2007 11:32 AM CDT) TROPONIN T <0.01 <=0.03 ng/mL [facility] TROPONIN T INTERP Negative [facility] Blood specimen (specimen) 11/03/2007 11:32 AM CDT 11/03/2007 11:35 AM CDT us Jesusita Roland MD CHEMISTRY ORDERABLES Edited Performing Organization Address [facility] Co de Phone Number [facility] [address] [place] [address] * BLOOD CULTURE (11/03/2007 9:52 AM CDT) PRELIMINARY REPORT No growth to date. Culture in progress INTERFACE SYSTEM FINAL REPORT No growth 5 days INTERFACE SYSTEM Blood specimen (specimen) 11/03/2007 9:52 AM CDT 11/03/2007 12:07 PM CDT us Jesusita Roland MD MICROBIOLOGY - GENERAL ORDER JOSEPH Final Result Performing Organization Address City/[facility] Co de Phone Number INTERFACE [...] 9:46 AM CDT 11/03/2007 12:07 PM CDT Jesusita Roland MD MICROBIOLOGY - GENERAL ORDER JOSEPH Final Result Performing Organization Address City/[facility] Co de Phone Number INTERFACE SYSTEM Refer to clinic/hospital department * (ABNORMAL) POC GLUCOSE (11/03/2007 7:07 AM CDT) GLUCOSE POC 129(H) 65 - 99 mg/dL [facility] Venous blood specimen (specimen) 11/03/2007 7:07 AM CDT 11/03/2007 7:07 AM CDT Jesusita Roland MD POINT OF CARE TESTING Final Result Performing Organization Address City/[facility] Co de Phone Number [facility] [address] [place] [address] * (ABNORMAL) BASIC METABOLIC PANEL (11/03/2007 2:55 AM CDT) GLUCOSE 116(H) 65 - 99 mg/dL [facility] SODIUM 137 135 - 145 mmol/L [facility] CALCIUM 8.8 8.4 - 10.2 mg/dL [facility] CO2 27 22 - 30 mmol/L [facility] CREATININE 1.23(H) 0.67 - 1.17 mg/dL [facility] POTASSIUM 4.3 3.5 - 4.9 mmol/L [facility] BUN 17 6 - 20 mg/dL [facility] CHLORIDE 100 96 - 108 mmol/L [facility] GFR, >60 >=60 mL/min/1. 7 sq meter [facility] GFR 60 >=60 mL/min/1. 7 sq meter [facility] Comment: Estimated GFR rate interpretative information for both Americans and non- Americans is available on the [facility] Intranet at: [email or web address] Select: Lab Policies and Procedures Select: Reference Ranges - GFR Blood specimen (specimen) 11/03/2007 2:55 AM CDT 11/03/2007 2:56 AM CDT Jesusita Roland MD CHEMISTRY ORDERABLES Edited Performing Organization Address City/[facility]/ZIP Co de Phone Number [facility] [address] [place] [address] * TROPONIN (W/REFLEX CKMB/CK) (11/03/2007 2:55 AM CDT) TROPONIN T <0.01 <=0.03 ng/mL [facility] TROPONIN T INTERP Negative [facility] Blood specimen (specimen) 11/03/2007 2:55 AM CDT 11/03/2007 2:56 AM CDT Jesusita Roland MD CHEMISTRY ORDERABLES Edited [facility] [address] [place] [place] [address] * (ABNORMAL) POC GLUCOSE (11/02/2007 8:25 PM CDT) GLUCOSE POC 103(H) 65 - 99 mg/dL [facility] Venous blood specimen (specimen) 11/02/2007 8:25 PM CDT 11/02/2007 8:25 PM CDT Jesusita Roland MD POINT OF CARE TESTING Final Result [facility] [address] [place] [place] [address] * XR CHEST PA AND LATERAL (11/02/2007 7:43 PM CDT) Anatomical Region Laterality Modality Chest Other 11/02/2007 7:43 PM CDT Narrative 11/03/2007 9:04 AM CDT [facility] [address] [place], [place] [address] Admit Date: 11/02/2007 PATRICIA DUNHAM Sex: M Admit Prov: JESUSITA ROLAND Date: 1945 Primary Care Prov: MERYL FRIEDMAN CMRN: [id number] Room: [address] [place] [address] SSN: [id number] IMAGING SERVICES Ordering Prov: N/A Accession Number: [id number] Interpretation CHEST 2 VIEWS 11/02/2007 History: Congestive [...] AMK Procedure Note Provider, Historical - 11/03/2007 [facility] [address] [place], [place] [address] Admit Date: 11/02/2007 PATRICIA DUNHAM Sex: M Admit Prov: JESUSITA ROLAND Date: 1945 Primary Care Prov: MERYL FRIEDMAN CMRN: [id number] Room: [address] [place] [address] SSN: [id number] IMAGING SERVICES Ordering Prov: N/A Interpretation CHEST [...] PM CDT) TROPONIN T <0.01 <=0.03 ng/mL [facility] TROPONIN T INTERP Negative [facility] Blood specimen (specimen) 11/02/2007 7:05 PM CDT 11/02/2007 7:13 PM CDT Jesusita Roland MD CHEMISTRY ORDERABLES Edited Performing Organization Address City/[facility]/ZIP Co de Phone Number [facility] [address] [place] [address] * TSH (11/02/2007 7:05 PM CDT) TSH 1.59 0.27 - 4.20 uU/mL [facility] Blood specimen (specimen) 11/02/2007 7:05 PM CDT 11/02/2007 7:13 PM CDT Jesusita Roland MD CHEMISTRY ORDERABLES Final R esult [facility] [address] [place] [address] * (ABNORMAL) HEPATIC FUNCTION PANEL (11/02/2007 7:05 PM CDT) BILIRUBIN TOTAL 1.0 0.2 - 1.0 mg/dL [facility] ALT 72(H) 0 - 41 U/L [facility] ALKALINE PHOSPHATASE 58 40 - 129 U/L [facility] TOTAL PROTEIN 7.0 6.3 - 8.6 g/dL [facility] BILIRUBIN DIRECT 0.4(H) 0.0 - 0.3 mg/dL [facility] AST 38 12 - 38 U/L [facility] ALBUMIN 4.2 3.4 - 4.8 g/dL [facility] Blood specimen (specimen) 11/02/2007 7:05 PM CDT 11/02/2007 7:13 PM CDT us Jesusita Roland MD CHEMISTRY ORDERABLES Final R esult [facility] [address] [place] [address] * (ABNORMAL) PROTIME-INR (11/02/2007 7:05 PM CDT) INR 1.3(H) 0.9 - 1.1 [facility] Comment: INR Therapeutic Range: Adult: 2.0 - 3.0 for pulmonary embolism or prophylaxis against venous thrombosis or systemic embolization. 2.0 - 3.0 for patients with tissue heart valves. 2.5 - 3.5 for patients with mechanical heart valves or post TX. Pediatric (12 years and under): 1.5 - 3.0 Although the target range in children is not well established, INR values of 1.5 - 3.0 are recommended for most patients. Higher values have been used in children with prosthetic cardiac valves and hereditary clotting disorders. (<3 days) therapeutic ranges have not been established. PROTIME 16.2(H) 12.7 - 15.1 Seconds [facility] Blood specimen (specimen) 11/02/2007 7:05 PM CDT 11/02/2007 7:13 PM CDT us Jesusita Roland MD HEMATOLOGY ORDERABLES Final Result [facility] [address] [place] [address] * (ABNORMAL) CBC WITH DIFFERENTIAL (11/02/2007 7:05 PM CDT) MCV 101.4(H) 82.0 - 99.0 fL [facility] PLATELETS 169 140 - 350 K/uL [facility] HEMOGLOBIN 16.6(H) 13.6 - 16.5 g/dL [facility] RDW 14.1 11.5 - 14.5 % [facility] WBC 9.3 4.0 - 9.8 K/uL [facility] MCH 33.3(H) 27.2 - 32.6 pg [facility] MPV 11.7 9.3 - 12.4 fL [facility] HEMATOCRIT 50.6(H) 40.0 - 48.0 % [facility] RDW-STDEV 52.0(H) 37.1 - 48.7 fL [facility] RBC 4.99 4.50 - 5.40 M/uL [facility] MCHC 32.8 31.5 - 35.5 % [facility] EOSINOPHILS 0 0 - 7 % [facility] EOSINOPHIL ABSOLUTE 0.02 0.00 - 0.70 K/uL [facility] LYMPHOCYTES 13(L) 16 - 45 % [facility] LYMPHOCYTE ABSOLUTE 1.18 0.70 - 4.50 K/uL [facility] BASOPHILS 1 0 - 2 % [facility] BASOPHILS ABSOLUTE 0.05 0.00 - 0.20 K/uL [facility] MONOCYTES 15(H) 3 - 13 % [facility] MONOCYTE ABSOLUTE 1.43(H) 0.10 - 1.30 K/uL [facility] NEUTROPHILS 71(H) 45 - 70 % [facility] NEUTROPHIL ABSOLUTE 6.66 1.90 - 7.00 K/uL [facility] Blood specimen (specimen) 11/02/2007 7:05 PM CDT 11/02/2007 7:13 PM CDT us Jesusita Roland MD HEMATOLOGY ORDERABLES Edited INTERFACE SYSTEM Refer to clinic/hospital department [facility] [address] [place] [address] * BASIC METABOLIC PANEL (11/02/2007 7:05 PM CDT) BUN 15 6 - 20 mg/dL [facility] CHLORIDE 102 96 - 108 mmol/L [facility] GLUCOSE 92 65 - 99 mg/dL [facility] SODIUM 138 135 - 145 mmol/L [facility] CALCIUM 9.2 8.4 - 10.2 mg/dL [facility] CO2 25 22 - 30 mmol/L [facility] CREATININE 1.10 0.67 - 1.17 mg/dL [facility] POTASSIUM 4.5 3.5 - 4.9 mmol/L [facility] GFR, >60 >=60 mL/min/1.7 sq meter [facility] GFR >60 >=60 mL/min/1.7 sq meter [facility] Comment: Estimated GFR rate interpretative information for both Americans and non- Americans is available on the [facility] Intranet at: [email or web address] Select: Lab Policies and Procedures Select: Reference Ranges - GFR Blood specimen (specimen) 11/02/2007 7:05 PM CDT 11/02/2007 7:13 PM CDT Jesusita Roland MD CHEMISTRY ORDERABLES Edited Performing Organization Address City/[facility] Co de Phone Number [facility] [address] [place] [address] * LIPID PANEL (11/02/2007 7:05 PM CDT) CHOL/HDL RATIO 2.8 2.0 - 5.0 [facility] TRIGLYCERIDE 59 10 - 149 mg/dL [facility] HDL 40 40 - 59 mg/dL [facility] CHOLESTEROL 110 100 - 199 mg/dL [facility] LDL CALCULATED 58 <=99 mg/dL [facility] LIPID PANEL COMMENT See Below [facility] Comment: The adult ATP and pediatric NCEP classifications for lipids are available on the [facility] Intranet at: [email or web address] Select: Lab Policies and Procedures,Current Select: Lipid Panel Interpretation Blood specimen (specimen) 11/02/2007 7:05 PM CDT 11/02/2007 7:13 PM CDT Result [facility] Jesusita Roland MD CHEMISTRY ORDERABLES Edited Performing Organization Address City/[facility]/ZIP Co de Phone Number [facility] [address] [place] [address] documented in this encounter Visit Diagnoses Diagnosis Congestive heart failure, unspecified (CMS/HCC) Congestive heart failure, unspecified documented in this encounter Care Teams Digital Ad Trafficker Relationship Specialty Start Date End Date Meryl Friedman MD PCP - General 12/10/07 documented as of this encounter
--- OUTSIDE RECORDS SUMMARY | 2025-03-10 09:30 | XMS_ITS | Clinical Summary ---
Author Organization [facility] Address [address] [place] [address] Care Team Providers Care Special Needs Librarian Name Role Phone Dimitry Kamara MD Primary Care Provider [phone] Jesusita Han MD Unavailable [phone] Allergies No known active allergies Medications insulin [...] by mouth daily Active cholecalciferol (VITAMIN D-3) 39839 unit capsule Take 1 capsule (10,000 Units [...] Department Care Team Description 01/30/2025 Orders Only [facility] Cardiology [address] [place] [address] Mishel Leal NP 12/26/2024 Telephone [facility] Cardiology [address] [place] [address] Chase Rivas MD from Last 3 Months [...] on file Legal Sex Male 7:14 PM [employer] Gender Identity Not on file Sexual Orientation Not on file Obstetrics History Last Filed Vital Signs Vital Sign Reading Time Taken Comments Blood Pressure 102/58 09/01/2024 2:37 PM [employer] Pulse 55 09/01/2024 2:37 PM [employer] Temperature - - Respiratory Rate - - Oxygen Saturation 91% 09/01/2024 2:37 PM [employer] Inhaled Oxygen Concentration - - Weight 67.1 kg (148 lb) 09/01/2024 2:37 PM [employer] Height 172.7 cm (5' 8) 09/01/2024 2:37 PM [employer] Body Mass Index 22.5 09/01/2024 2:37 PM [employer] Plan of Treatment Health Maintenance Due Date Last Done Comments Depression Screening 1945 Fall Risk Assessment 1945 Hepatitis C Screening 1945 DTaP/Tdap/Td Vaccine (1 - Tdap) 1956 Hepatitis B Screening 10/12/1963 Zoster Vaccine (1 of 2) 10/12/1995 Abdominal Aortic Aneurysm (A AA) Screen 2010 Well Visit 65+ 2010 Pneumococcal vaccine 65+ (2 of 2 - PPSV23, PCV20, or PCV21) 06/26/2017 05/01/2017 Influenza Vaccine (#1) 2025 9, 05/01/2017, 06/27/2015, Additional history exists Procedures Procedure Name Priority Date/Time Associated Diagnosis Comments CARDIOLOGY DOCUMENT SCAN Routine 01/24/2025 4:22 PM CDT from Last 3 Months Results * Cardiology Document Scan (01/24/2025 4:22 PM CDT) Anatomical Region Laterality Modality Other Mishel Leal NP CV CARDIAC SERVICES PROCEDUR ES Final Result from Last 3 Months Insurance [facility] MEDICARE ADVANTAGE [facility] MEDICARE ADVANTAGE Care Teams Special Needs Librarian Relationship Specialty Start Date End Date Dimitry Kamara MD [address] [place] [address] PCP - General 10/24/16 Jesusita Han MD [address] [place] [address] Machine Shop Worker Cardiology 10/16/20
--- OUTSIDE RECORDS SUMMARY | 2025-03-10 09:30 | XMS_ITS | Encounter Summary ---
Author Organization [facility] Healthcare Address [address] [place] [address] Care Team Providers Care Land Leasing Examiner Name Role Phone Dimitry Kamara MD Primary Care Provider [phone] Jesusita Han MD Unavailable [phone] Encounter Details Date Type Department Care Team (Late st Contact Info) Description 11/12/2022 Orders Only [facility] Health Information Management [address] [place] [id number] Scanning, Provider Social History Tobacco Use Types Packs/Day Years Used Date Smoking Tobacco: Every Day Smokeless Tobacco: Never Comments:Smoking History Pac ks/day: 1 Packs Alcohol Use Standard Drinks/Week Comments No 0 (1 standard drink = 0.6 oz pur e alcohol) Sex and Gender Information Value Date Recorded Sex Assigned at Not on file Legal Sex Male 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 Gender Identity Not on file Sexual Orientation Not on file documented as of this encounter Plan of Treatment Not on file documented as of this encounter Procedures Procedure Name Priority Date/Time Associated Diagnosis Comments SCAN - LABS 11/12/2022 documented in this encounter Results * SCAN - LABS (11/12/2022) us Provider Scanning Final Result documented in this encounter Visit Diagnoses Not on filedocumented in this encounter Care Teams Land Leasing Examiner Relationship Specialty Start Date End Date Dimitry Kamara MD [address] [place] [address] PCP - General 10/24/16 Jesusita Han MD [address] [facility] [facility] [address] [place] [address] Information Services Consultant 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
--- OUTSIDE RECORDS SUMMARY | 2025-03-10 09:30 | XMS_ITS | Encounter Summary ---
Author Organization [facility] Address [address] [place] [address] Care Team Providers Care Telecommunicator Supervisor Name Role Phone Dimitry Kamara MD Primary Care Provider + Encounter Details Date Type Department Care Team (Late st Contact Info) Description 12/15/2007 Outpatient Historical [facility] Steven Pimentel Jr., MD NO ADDRESS ON FILE Atrial Fibrillation ([facility]) Social History Tobacco Use Types Packs/Day Years Used Date Smoking Tobacco: Never Assessed Sex and Gender Information Value Date Recorded Sex Assigned at Not on file Legal Sex Male 2:54 AM CUSTOMER SUPPORT COORDINATOR Gender Identity Not on file Sexual Orientation Not on file documented as of this encounter Plan of Treatment Not on file documented as of this encounter Procedures Procedure Name Priority Date/Time Associated Diagnosis Comments PROTIME-INR Routine 12/15/2007 10:33 AM CDT documented in this encounter Results * (ABNORMAL) PROTIME-INR (12/15/2007 10:33 AM CDT) PROTIME 23.3(H) 12.7 - 15.1 Seconds [facility] INR 2.1(H) 0.9 - 1.1 [facility] Comment: INR Therapeutic Range: Adult: 2.0 - 3.0 for pulmonary embolism or prophylaxis against venous thrombosis or systemic embolization. 2.0 - 3.0 for patients with tissue heart valves. 2.5 - 3.5 for patients with mechanical heart valves or post [place]. Pediatric (12 years and under): 1.5 - [...] Jr., MD HEMATOLOGY ORDERABLES F inal Result [facility] CLIA# [id number] [address] [place] [address] documented in this encounter Visit Diagnoses Diagnosis Atrial fibrillation (CMS/HCC) Atrial fibrillation documented in this encounter Care Teams Telecommunicator Supervisor Relationship Specialty Start Date End Date Dimitry Kamara MD PCP - General 12/10/07 documented as of this encounter
--- OUTSIDE RECORDS SUMMARY | 2025-03-10 09:30 | XMS_ITS | Clinical Summary ---
Author Organization [facility] Address [address] [place] [address] Phone Care Team Providers Care Esthetician/Owner Name Role Phone Dimitry Kamara MD Primary Care Provider + Social History Tobacco Use Types Packs/Day Years Used Date Smoking Tobacco: Never Assessed Sex and Gender Information Value Date Recorded Sex Assigned at Not on file Legal Sex Male 2:54 AM COMMERCIAL ACCOUNT MANAGER Gender Identity Not on file Sexual Orientation Not on file Plan of Treatment Health Maintenance Due Date Last Done Comments DTAP/TDAP/TD VACCINES (1 - Tdap) 1964 PNEUMOCOCCAL VACCINE 50+ YEARS (1 of 1 - PCV) 10/11/18 96 ZOSTER VACCINE (1 of 2) 10/12/1995 RSV VACCINE (60+ or ) (1 - 1-dose 75+ series) 2020 INFLUENZA VACCINE (#1) 2025 Insurance [facility] BLUE ACCESS/TRUE BLUE PPO Care Teams Esthetician/Owner Relationship Specialty Start Date End Date Dimitry Kamara MD PCP - General 12/10/07
--- OUTSIDE RECORDS SUMMARY | 2025-03-10 09:30 | XMS_ITS | Clinical Summary ---
Author Organization [facility] Address [address] [place] [address] Care Team Providers Care Bread Dough Mixer Name Role Phone Dimitry Kamara MD Primary Care Provider [phone] Source Comments [facility],non-owned Affiliates and Associated Physician Practices is amultiple site organization consisting of ambulatory clinics and hospital sitesin [place], [place], [place] and [place]. This disclosure is being madepursuant to the Care Everywhere program and may not contain all information available regarding this patient. Last updated 18.[facility] Allergies No known active allergies Medications * [...] (one) tablet by mouth at bedtime Active [place]-3 Fatty Acids (fish oil) 500 MG capsule [...] Recorded Patient Health Questionnaire-2 Score 0 03/31/2024 [place] [facility] [employer] - Occupational Stress [...] place to sleep or slept in a retirement (including now)? No 03/25/2024 Sex and Gender [...] - 26 mg/dL 04/01/2024 4:07 AM CDT [facility] Creatinine 0.69(L) 0.71 - 1.16 mg/dL 04/01/2024 4:07 AM [facility] Sodium 139 136 - 145 mmol/L 04/01/2024 4:07 AM [facility] Potassium 3.7 3.5 - 4.5 mmol/L 04/01/2024 4:07 AM [facility] Chloride 110(H) 98 - 107 mmol/L 04/01/2024 4:07 AM [facility] CO2 25 22 - 29 mmol/L 04/01/2024 4:07 AM [facility] Glucose 137(H) 70 - 115 mg/dL 04/01/2024 4:07 AM [facility] Calcium 8.6 8.4 - 10.2 mg/dL 04/01/2024 4:07 AM [facility] Protein Total 5.6(L) 6.0 - 8.3 g/dL 04/01/2024 4:07 AM [facility] Albumin 2.8(L) 3.4 - 5.0 g/dL 04/01/2024 4:07 AM [facility] Bilirubin Total 1.3(H) 0.2 - 1.2 mg/dL 04/01/2024 4:07 AM [facility] Alkaline Phosphatase 66 40 - 150 U/L 04/01/2024 4:07 AM [facility] ALT 28 5 - 55 U/L 04/01/2024 4:07 AM [facility] AST 23 5 - 34 U/L 04/01/2024 4:07 AM [facility] Anion Gap 4(L) 6 - 16 04/01/2024 4:07 AM [facility] BUN/Creatinine Ratio 20 7 - 23 04/01/2024 4:07 AM [facility] Osmolality Calculated 291 275 - 295 mOsm/kg 04/01/2024 4:07 AM [facility] Albumin/Globulin Ratio 1.0(L) 1.1 - 2.3 04/01/2024 4:07 AM [facility] eGFR by CKD-EPI >90 >=90 mL/min/1.7 3 m2 04/01/2024 4:07 AM [facility] Blood BLOOD SPECIMEN / Unknown Lab Venipuncture / Unknown 04/01/2024 3:04 AM CDT 04/01/2024 3:37 AM CDT Malachi Wayne MD LAB - CHEMISTRY ORDERABLES F inal Result Performing Organization Address [facility] [[email or web address]] Co de Phone Number [address] [address], [facility] [phone] * HEMOGLOBIN A1C (03/30/2024 7:56 AM CDT) Hemoglobin A1c 5.6 <=5.6 % 03/30/2024 9:41 AM [facility] Estimated Average Glucose 114 mg/dL 03/30/2024 9:41 AM [facility] Comment: HbA1c Interpretation: Normal : < 5.7% Pre-diabetes: 5.7-6.4% Diabetes: Equal to or greater than 6.5% Test results diagnostic of diabetes should be repeated for confirmation. Treatment target values recommended by ADA and other clinical organizations should be used to evaluate metabolic control in patients. Reference: [place] [employer], Standards of Care in Diabetes -2020 In patients 70 years and older consider HbA1c target range of 7.0-7.5% (Reference: Jamal oM et al. JAMDA. 2012) The [place] assay for the measurement of HbA1c is a National Glycohemoglobin Standardization Program (NGSP) certified method. Blood BLOOD SPECIMEN / Unknown Lab Venipuncture / Unknown 03/30/2024 7:56 AM CDT 03/30/2024 8:27 AM CDT Malachi Wayne MD LAB - CHEMISTRY ORDERABLES F inal Result Performing Organization Address City/[facility]/ZIP Co de Phone Number [address] [address], [facility] [phone] from Last 3 Months or Most Recently Relevant to Health Maintenance Insurance [facility] MANAGED MEDICARE ADV Advance Directives * Full Code (Latest Code Status on File) Date Activated Date Inactivated Comments 03/25/2024 8:09 PM 04/01/2024 1:28 PM Care Teams Bread Dough Mixer Relationship Specialty Start Date End Date Dimitry Kamara MD [address] [facility] [address] [facility] [address] [place] [address] PCP - General Internal Medicine 04/13/24
[2025-03-10 09:46] LABS: Hematocrit 34.0 % (42.0-52.0); Hemoglobin 10.4 g/dL (14.0-18.0); Immature Granulocyte Percent A 0.5 % (0-0.5); Lymphocytes Absolute Auto 1.94 K/mm3 (0.9-3.2); Mean Corpuscular HGB Conc 30.6 g/dl (32-36); Mean Corpuscular Hemoglobin 31.2 pg (26-34); Mean Corpuscular Volume 102.1 fl (80-100); Nucleated Red Blood Cells Absolute Auto 0.000 K/mm3 (0.0-0.012); Nucleated Red Blood Cells Perc 0.0 % (0.0-0.2); Platelet Count Result 197 k/mm3 (150-375); Red Blood Count 3.33 M/mm3 (4.6-6.20); White Blood Count 9.4 K/mm3 (4.5-10.0)
[2025-03-10 10:00] LABS: INR 1.4; Prothrombin Time 17.2 Seconds (11.1-14.7)
[2025-03-10 10:01] LABS: Alanine Aminotransferase 14 U/L (6-50); Albumin Level 2.9 g/dL (3.5-5.1); Alkaline Phosphatase 105 U/L (38-126); Anion Gap 3 mmol/L (4-12); Aspartate Amino Transferase 20 U/L (17-59); Bilirubin,Total 0.5 mg/dL (0.2-1.3); Blood Urea Nitrogen 12 mg/dL (9-20); Calcium 8.8 mg/dL (8.4-10.2); Carbon Dioxide 34 mmol/L (22-30); Chloride 101 mmol/L (98-107); Estimated CRCL calculation 66 ml/min; Estimated Glomerular Filt Rate > 60; Glucose 127 mg/dL (65-110); Partial Thromboplastin Time 32.5 Seconds (22.3-36.8); Potassium 3.8 mmol/L (3.4-5.0); Sodium 138 mmol/L (137-145); Total Protein 7.1 g/dL (6.3-8.2)
[2025-03-10 10:11] LABS: Troponin I < 0.012 ng/mL (0.000-0.034)
[2025-03-10 10:14] LABS: CRP 2.6 mg/dL (<1.0)
--- NOTE | 2025-03-10 10:41 | ED_ITS ---
HPI - General Adult General Chief complaint: Altered Mental Status Stated complaint: multiple complaints Time Seen by Provider: 03/10/25 09:06 Source: patient Mode of arrival: EMS Limitations: no limitations History of Present Illness HPI narrative: Patient is a 79-year-old male, past medical history of dementia, hypertension, diabetes, AFib on Eliquis and metoprolol, who presents to the ED via EMS with report of a fall. Patient is resident at [facility]. Reports he lost his balance and fell backwards today, hitting his posterior head. Small contusion to posterior scalp. Patient denies LOC. Patient reports feeling somewhat dizzy before the fall, but states this is not abnormal for him. He has dizziness every day. Patient otherwise denies any areas of pain. The long term was also concerned about wounds to his bilateral heels. Denies fevers. Related Data Home Medications ?Medication ?Instructions ?Recorded ?Confirmed ?Last Taken ?Type mecobalamin (vitamin B12) 1,000 1,000 mcg PO DAILY 04/22/24 02/12/25 02/12/25 History mcg chewable tablet Allergies Allergy/AdvReac Type Severity Reaction Status Date / Time No Known Allergies Allergy Verified 10/13/24 14:03 Review of Systems 2 Review of Systems: All systems reviewed & are unremarkable except as noted in HPI. All systems reviewed & are unremarkable except as noted in HPI and below PMFSH Past Medical History Medical History Encounter for routine adult health examination with abnormal findings Hospital discharge follow-up CVA (cerebral vascular accident) (~03/2024) 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 Right kidney stone Hx of colonic polyps Tobacco abuse Elevated homocysteine COPD (chronic obstructive pulmonary disease) Vitamin D deficiency Hearing loss ASHD (arteriosclerotic heart disease) A-fib Hyperlipidemia Benign essential hypertension Diabetes mellitus type 2, insulin dependent Surgical History Surgical History H/O aortic valve replacement Family History Family History Father Family history of malignant neoplasm Other Family history of cardiovascular disease Family history of pancreatic cancer Social History Social History (Reviewed 03/10/25 @ 10:44 by MARITZA Wallis Social History: Code status: Full code (per EMR) Surrogate decision maker: Russell (son) Smoking packs per day: 1 Smoking cigarettes per day: 20.0 Years smoked: 60 Smoking pack-years: 60.00 Smoking status: Current every day smoker Tobacco type: cigarettes Second hand tobacco smoke exposure: No Alcohol intake: never Substance use: never Substance use type: does not use Do You Feel Safe in your Home?: Yes Lack of Transportation: No Lack of Food: Never True Current Housing: I Have Housing Concerned About Future Housing: No Difficulty Paying Gas/Electric Bills: No Difficulty Paying for Meds: No Currently Unemployed: No Education: High School Diploma/GED Difficulty w/ Childcare or Family Care: No Living arrangements: with family Additional living arrangements comments: The patient's grandson lives with him. Patient raised 2 sons. 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 HEAD: Normocephalic, small contusion to posterior scalp. No wounds or lacerations. NECK: Normal range of motion. No midline cervical spinal tenderness. RESPIRATORY: Airway patent, respirations nonlabored. Clear to auscultation bilaterally, no rales, rhonchi, wheezing. CARDIOVASCULAR: Regular rate and rhythm without murmurs, rubs, or gallops. Pedal pulses are intact MUSCULOSKELETAL: Moves all extremities. No gross deformities. Mild diffuse swelling throughout lower extremities and dorsal feet bilaterally. Small pressure ulcer wounds to bilateral heels with scant purulent drainage and slight foul odor. Mild tenderness surrounding wounds. SKIN: Warm, dry, normal color. NEURO: Alert, somewhat confused at times. Speech clear. Cranial nerves II-XII grossly intact. Steady gait. No ataxic movements. No focal deficits. PSYCHIATRIC: Appropriate mood and affect. Normal interaction. Course Vital Signs Vital signs: Vital Signs Temperature 98.1 F 03/10/25 08:57 Pulse Rate 84 03/10/25 08:57 Respiratory Rate 20 03/10/25 08:57 Blood Pressure 133/69 03/10/25 08:57 Pulse Oximetry 96 03/10/25 08:57 Oxygen Delivery Room Air 03/10/25 08:57 Temperature 98.1 F 03/10/25 08:57 Pulse Rate 74 03/10/25 16:00 Respiratory Rate 19 03/10/25 16:00 Blood Pressure 142/62 H 03/10/25 16:00 Pulse Oximetry 100 03/10/25 16:00 Oxygen Delivery Room Air 03/10/25 08:57 Medical Decision Making MDM Narrative Medical decision making narrative: Patient presented to ED from local nursing facility with report of a fall. Head injury. No LOC. Patient did report feeling slightly dizzy, but states this is not abnormal for him. Patient is on Eliquis. History of AFib. Facility also worried about the wounds to bilateral heels. Vital signs are stable. Patient in no acute distress. Appears neurologically intact, no focal deficits, at neurologic baseline. CT brain and cervical spine without traumatic findings. X-rays of bilateral heels without obvious osteomyelitis or bone abnormalities. Wound care came to evaluate patient/wounds and reported that wounds are very stable, chronic, no signs of acute infection. Recommended offloading, elevation as much as possible, heel protector boots, daily dressing changes with silvergel. Laboratory studies without without leukocytosis. Chronic mild anemia. Inflammatory markers are elevated. EKG with chronic AFIB, rate controlled, no significant changes from previous. No significant ST changes. Troponin undetectable. UA does appear infectious. Sent for culture. Blood cultures obtained. Given dose of Rocephin in the ED. CT abd/pelvis was obtained to r/o obstructive process. No ureterolithiasis. Does show cystitis changes of bladder. Does show some bony irregularity of endplate of L4 and L3. Differential includes degenerative changes, posttraumatic, discitis/osteomyelitis. Patient reports long history of chronic back pain. Denies changes in this today. He has been afebrile. No leukocytosis. Has well documented severe degenerative changes on CT imaging here within the last couple months. Very low suspicion for osteo picture. Patient otherwise safe for discharge back to long term facility with oral antibiotics for UTI. Wound instructions given for LA on paperwork. Given strict return precautions. Patient in agreement with plan. Discharged in stable condition. Medical Records Medical records reviewed: Yes I reviewed the external patient's medical records. Vital Signs Vital Signs: Vital Signs Temperature 98.1 F 03/10/25 08:57 Pulse Rate 84 03/10/25 08:57 Respiratory Rate 20 03/10/25 08:57 Blood Pressure 133/69 03/10/25 08:57 Pulse Oximetry 96 03/10/25 08:57 Oxygen Delivery Room Air 03/10/25 08:57 Temperature 98.1 F 03/10/25 08:57 Pulse Rate 74 03/10/25 16:00 Respiratory Rate 19 03/10/25 16:00 Blood Pressure 142/62 H 03/10/25 16:00 Pulse Oximetry 100 03/10/25 16:00 Oxygen Delivery Room Air 03/10/25 08:57 Lab Data Lab results reviewed: Yes I reviewed the patient's lab results. 03/10/25 09:38 03/10/25 09:38 Labs: Lab Results 03/10/25 03/10/25 Range/Units 09:38 14:29 WBC 9.4 (4.5-10.0) K/mm3 RBC 3.33 L (4.6-6.20) M/mm3 Hgb 10.4 L (14.0-18.0) g/dL Hct 34.0 L (42.0-52.0) % MCV 102.1 H (80-100) fl MCH 31.2 (26-34) pg MCHC 30.6 L (32-36) g/dl RDW 15.4 H (11.5-14.5) % Plt Count 197 (150-375) k/mm3 MPV 9.6 (7.4-10.4) fl Immature Gran % (Auto) 0.5 (0-0.5) % Neut % (Auto) 73.0 (45.5-73.1) % Lymph % (Auto) 20.6 (18.3-44.2) % Sargent % (Auto) 4.9 (2.6-8.5) % Eos % (Auto) 0.7 (0-4.4) % Baso % (Auto) 0.3 (0.2-1.2) % Lymph # (Auto) 1.94 (0.9-3.2) K/mm3 Sargent # (Auto) 0.5 (0.1-0.6) K/mm3 Eos # (Auto) 0.1 (0-0.3) K/mm3 Baso # (Auto) 0.0 (0.0-0.1) K/mm3 Abs Immat Gran (auto) 0.05 H (0.00-0.031) K/mm3 Absolute Neuts (auto) 6.9 H (1.3-6.7) K/mm3 Absolute Nucleated RBC 0.000 (0.0-0.012) K/mm3 Nucleated RBC % 0.0 (0.0-0.2) % ESR 138 H (0-20) mm/hr PT 17.2 H (11.1-14.7) Seconds INR 1.4 APTT 32.5 (22.3-36.8) Seconds Sodium 138 (137-145) mmol/L Potassium 3.8 (3.4-5.0) mmol/L Chloride 101 (98-107) mmol/L Carbon Dioxide 34 H (22-30) mmol/L Anion Gap 3 L (4-12) mmol/L BUN 12 D (9-20) mg/dL Creatinine 0.72 (0.7-1.3) mg/dL Estim Creat Clear Calc 66 ml/min Estimated GFR > 60 (59 - ) Glucose 127 H (65-110) mg/dL Calcium 8.8 (8.4-10.2) mg/dL Total Bilirubin 0.5 (0.2-1.3) mg/dL AST 20 (17-59) U/L ALT 14 (6-50) U/L Alkaline Phosphatase 105 (38-126) U/L Troponin I < 0.012 (0.000-0.034) ng/mL C-Reactive Protein 2.6 H (<1.0) mg/dL Total Protein 7.1 (6.3-8.2) g/dL Albumin 2.9 L (3.5-5.1) g/dL Urine Color Dark yellow (Yellow) Urine Appearance Turbid H (Clear) Urine pH 7.0 (5.0-9.0) Ur Specific Mohawk 1.019 (1.001-1.035) Urine Protein 2+ H (Negative) mg/dL Urine Glucose (UA) 2+ H (Negative) mg/dL Urine Ketones Negative (Negative) mg/dL Ur Blood (Man) 3+ H (Negative) Urine Nitrate Negative (Negative) Urine Bilirubin Negative (Negative) Urine Urobilinogen 1.0 (<2.0) mg/dL Add Ur Microanalysis Reviewed Leukocyte Esterase Rfl 3+ H (Negative) VIDA/UL Urine RBC >100 H (0-2) /hpf Urine WBC >100 H (0-3) /hpf Ur Squamous Epith Cells Moderate (Few) /hpf Urine Bacteria 2+ H /hpf Urine Casts 0-2 Imaging Data Attestation: I personally reviewed and interpreted this imaging study as follows: Radiologist's impression: ITS Impressions Head CT 03/10/25 09:34 IMPRESSION: 1. No fracture or acute intracranial process. 2. A few small old lacunar infarcts in the left thalamus, left basal ganglia and bilateral cerebellar hemispheres. 3. Age-related changes including moderate diffuse volume loss and moderate scattered white matter hypoattenuation consistent with chronic small vessel ischemic disease. Cervical Spine CT 03/10/25 09:37 IMPRESSION: 1. No acute fracture. Heel X-Ray 03/10/25 10:12 Impression: 1: No significant bone or joint abnormality. Consider correlation with MRI with contrast if there is concern for cellulitis or osteomyelitis. Heel X-Ray 03/10/25 10:12 Impression: 1: No significant bone or joint abnormality. Consider correlation with MRI with contrast if there is concern for cellulitis or osteomyelitis. Abdomen/Pelvis CT 03/10/25 15:22 IMPRESSION: 1. Bony irregularity of the superior endplate of the L4 vertebral body and inferior endplate of the L3 vertebral body. The findings may be secondary to sequelae from degenerative change, posttraumatic (compression fractures are possible) or secondary to discitis/osteomyelitis. Correlate clinically. Consider an MRI of the lumbar spine with and without contrast for further assessment. 2. Moderate concentric thickening of the gonzales of the moderately distended bladder. Cystitis is suspected. Recommend follow-up to resolution. 3. Large left inguinal hernia with fat and a bowel loop in the hernia sac. Small right inguinal hernia with a bowel loop in the hernia sac. No CT evidence for bowel obstruction at this time. 4. Patchy opacities in the lower lungs most prominent in the left lower lobe. Differential includes atelectasis/scarring or infiltrates. ECG Data EKG #1: Attestation: I personally reviewed and interpreted this ECG as follows: ECG completion date: 03/10/25 ECG completion time: 09:34 Prior ECG tracings: available for review (unchanged) EKG Interpretation: normal rate (71), atrial fibrillation, non-specific ST changes and RBBB Discharge Plan Discharge Clinical Impression: Fall from ground level Urinary tract infection Qualifiers: Urinary tract infection type: acute cystitis Hematuria presence: with hematuria Qualified Code(s): N30.01 - Acute cystitis with hematuria Closed head injury Qualifiers: Encounter type: initial encounter Qualified Code(s): S09.90XA - Unspecified injury of head, initial encounter Pressure ulcer of left heel Qualifiers: Pressure injury stage: unspecified pressure injury stage Qualified Code(s): L 89.629 - Pressure ulcer of left heel, unspecified stage Pressure ulcer of right heel Qualifiers: Pressure injury stage: unspecified pressure injury stage Qualified Code(s): L 89.619 - Pressure ulcer of right heel, unspecified stage Patient Disposition: NH Senior Care/Asst Living Condition: Stable Instructions: Antibiotic Form, Urinary Tract Infection in Men (ED), Fall Prevention for Older Adults (ED), Head Injury (ED), Pressure Injury (ED), Chronic Wounds (ED) Additional Instructions: Patient was diagnosed with a urinary tract infection today. Take Keflex as prescribed. Follow-up with primary care doctor for urine and blood culture results. Patient's wounds to both heels are chronic and without acute infection. Wound care evaluated patient today in the ED. It is recommended patient keep his legs elevated as much as possible. Wear heel protector boots as much as possible. His dressings need to be changed daily. Can apply silver gel to heels with bandaging. Follow-up with primary care doctor for further evaluation. Return to the ED if patient has recurrent fall or injury, severe pain, severe dizziness, passing out, unable to keep down food or drink, persistent fevers, chest pain, difficulty breathing, or any other symptoms of concern. Patient Language: Serbian Prescriptions: New cephalexin 500 mg capsule 500 mg PO Q6H 7 Days Qty: 28 0RF No Action (DME) Adult Incontinence Pads Ht 5'9 wt 145 See Rx Instructions .Route .MEDSUPPLY Qty: 60 6RF Rx Instructions: As directed furosemide 20 mg tablet 10 mg PO DAILY Qty: 90 1RF potassium chloride 10 mEq tablet extended release 10 meq PO DAILY Qty: 90 1RF metformin [Glumetza] 1,000 mg tablet,ER kanika.retention 24 hr 1,000 mg PO DAILY Qty: 30 0RF nicotine [Nicoderm CQ] 21 mg/24 hr Patch 24 Hour 1 patch transdermal DAILY Qty: 28 0RF metoprolol tartrate 25 mg tablet 25 mg PO BID Qty: 200 2RF Dose Instruction: TAKE 1 TABLET BY MOUTH TWICE DAILY Rx Instructions: TAKE 1 TABLET BY MOUTH TWICE DAILY hydrochlorothiazide 12.5 mg capsule 12.5 mg PO DAILY Qty: 30 0RF insulin aspart U-100 [Novolog U-100 Insulin aspart] 100 unit/mL Solution 2 - 5 unit subcut TIDWM Qty: 10 0RF Protocol: Insulin Corrective Low-Dose Condition: glucose < 70 mg/dl Dose/Route: Follow Hypoglycemia Order Condition: glucose 70-200 mg/dl Dose/Route: No additional insulin Condition: glucose 201-250 mg/dl Dose/Route: 2 units sub-Q Condition: glucose 251-300 mg/dl Dose/Route: 3 units sub-Q Condition: glucose 301-350 mg/dl Dose/Route: 4 units sub-Q Condition: glucose 351-400 mg/dl Dose/Route: 5 units sub-Q Condition: glucose > 400 mg/dl Dose/Route: Call MD Protocol Text: *No Correction Dose at Bedtime* mecobalamin (vitamin B12) 1,000 mcg tablet,chewable 1,000 mcg PO DAILY Eliquis 5 mg tablet See Rx Instructions .ROUTE .COMPLEX Qty: 120 5RF Dose Instruction: TAKE 1 TABLET BY MOUTH TWICE DAILY Rx Instructions: TAKE 1 TABLET BY MOUTH TWICE DAILY (DME) pen needle, diabetic 31 gauge x 5/16 needle See Rx Instructions .ROUTE .COMPLEX Qty: 200 0RF Dose Instruction: USE 2 PEN NEEDLES DAILY WITH LEVEMIR PEN Rx Instructions: USE 2 PEN NEEDLES DAILY WITH LEVEMIR PEN dapagliflozin propanediol [Farxiga] 5 mg tablet See Rx Instructions .ROUTE .COMPLEX Qty: 100 1RF Dose Instruction: TAKE 1 TABLET BY MOUTH AT BEDTIME Rx Instructions: TAKE 1 TABLET BY MOUTH AT BEDTIME niacin 500 mg tablet extended release 24 hr See Rx Instructions .ROUTE .COMPLEX Qty: 100 2RF Dose Instruction: TAKE 1 TABLET BY MOUTH AT BEDTIME Rx Instructions: TAKE 1 TABLET BY MOUTH AT BEDTIME donepezil 10 mg tablet See Rx Instructions .ROUTE .COMPLEX Qty: 90 3RF Dose Instruction: TAKE 1 TABLET BY MOUTH DAILY AT BEDTIME Rx Instructions: TAKE 1 TABLET BY MOUTH DAILY AT BEDTIME memantine 14 mg capsule,sprinkle,ER 24hr See Rx Instructions .ROUTE .COMPLEX Qty: 90 3RF Dose Instruction: TAKE 1 CAPSULE BY MOUTH DAILY Rx Instructions: TAKE 1 CAPSULE BY MOUTH DAILY folic acid 1 mg tablet 1 mg PO HS Qty: 90 1RF (DME) blood-glucose meter [Accu-Chek Guide Glucose Meter] Misc See Rx Instructions .Route Qty: 1 0RF Rx Instructions: Use to check blood sugar once daily (DME) Accu-Chek Guide test strips Strip See Rx Instructions .Route Qty: 100 0RF Rx Instructions: Use to check blood sugar once daily. atorvastatin 20 mg tablet See Rx Instructions .ROUTE .COMPLEX Qty: 100 1RF Dose Instruction: TAKE 1 TABLET BY MOUTH AT BEDTIME Rx Instructions: TAKE 1 TABLET BY MOUTH AT BEDTIME omega 4-zom-jaz-fish oil 300-1,000 mg Capsule 1 cap PO BID Qty: 60 0RF Follow-up/Referrals: Dimitry Kamara MD [Primary Care Provider] - Time of Disposition: 16:01
[2025-03-10] MEDS: SODIUM CHLORIDE 0.9% IV 500 ML 999 ML IV CONT (12:08)
[2025-03-10 12:40] VITALS: BP 133/57; PULSE 72; RESP 13; O2SAT 100
[2025-03-10 13:30] VITALS: BP 141/59; PULSE 73; RESP 15; O2SAT 100
--- NOTE | 2025-03-10 13:44 | PC.NURSE ---
Attempted to straight cath patient after bladder scan showing 271mL with no success. External catheter placed on patient to obtain sample
[2025-03-10 14:30] VITALS: BP 130/69; PULSE 74; RESP 18; O2SAT 100
[2025-03-10 14:52] LABS: Add Urine Microscopic? YES; Appearance Urine Turbid (Clear); Glucose Urine UA 2+ mg/dL (Negative); Leukocyte Esterase Ur 3+ LEU/UL (Negative); Need Manual Microscopic Reviewed; Nitrate Urine Negative (Negative); Non Pathogenic Casts 0-2; Specific Grav Ur 1.019 (1.001-1.035)
[2025-03-10] MEDS: cefTRIAXone 1 GM in SODIUM CHLORIDE 0.9% IV 50 ML 100 ML IVPB (15:31)
[2025-03-10 16:00] VITALS: BP 142/62; PULSE 74; RESP 19; O2SAT 100
== END 2025-03-10 17:31 ==
PROVIDERS: Emergency Provider Physician Assistant; PCP Internal Medicine
DX: S00.03XA Contusion of scalp, initial encounter (principal); L89.629 Pressure ulcer of left heel, unspecified stage; L89.619 Pressure ulcer of right heel, unspecified stage; N39.0 Urinary tract infection, site not specified; R31.9 Hematuria, unspecified; F03.90 Unspecified dementia, unspecified severity, without behavioral disturbance, psychotic disturbance, mood disturbance, and anxiety; I10 Essential (primary) hypertension; I48.91 Unspecified atrial fibrillation; I25.10 Atherosclerotic heart disease of native coronary artery without angina pectoris; J44.9 Chronic obstructive pulmonary disease, unspecified; E11.9 Type 2 diabetes mellitus without complications; E78.5 Hyperlipidemia, unspecified; E55.9 Vitamin D deficiency, unspecified; F17.210 Nicotine dependence, cigarettes, uncomplicated; Z86.73 Personal history of transient ischemic attack (TIA), and cerebral infarction without residual deficits; Z87.442 Personal history of urinary calculi; Z86.0100 Personal history of colon polyps, unspecified; Z95.2 Presence of prosthetic heart valve; Z79.4 Long term (current) use of insulin; Z79.01 Long term (current) use of anticoagulants; Z79.899 Other long term (current) drug therapy; K40.90 Unilateral inguinal hernia, without obstruction or gangrene, not specified as recurrent; R91.8 Other nonspecific abnormal finding of lung field; I45.10 Unspecified right bundle-branch block; R94.31 Abnormal electrocardiogram [ECG] [EKG]; R93.7 Abnormal findings on diagnostic imaging of other parts of musculoskeletal system; W18.39XA Other fall on same level, initial encounter
CPT/HCPCS: 36415; 70450; 72125; 73650; 74176; 80053; 81001; 84484; 85025; 85610; 85652; 85730; 86140; 87040; 93005; 96361; 96365; 99284; J0696; J7040

== ENCOUNTER 2025-03-11 11:27 | Outpatient (CLI) | payer MEDICARE, SELFPAY ==
--- OUTSIDE RECORDS SUMMARY | 2025-03-11 11:37 | XMS_ITS | Encounter Summary ---
Author Organization [facility] Healthcare Address [address] [place] [address] Care Team Providers Care Woodworker Name Role Phone Dimitry Kamara MD Primary Care Provider [phone] Jesusita Han MD Unavailable [phone] Encounter Details Date Type Department Care Team (Late st Contact Info) Description 11/12/2022 Orders Only [facility] [place] [address] [place] [id number] Scanning, Provider Social History Tobacco Use Types Packs/Day Years Used Date Smoking Tobacco: Every Day Smokeless Tobacco: Never Comments:Smoking History Pac ks/day: 1 Packs Alcohol Use Standard Drinks/Week Comments No 0 (1 standard drink = 0.6 oz pur e alcohol) Sex and Gender Information Value Date Recorded Sex Assigned at Not on file 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
--- OUTSIDE RECORDS SUMMARY | 2025-03-11 11:37 | XMS_ITS | Encounter Summary ---
Author Organization [facility] Address 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 [address] [email or web address] Cardiac Catheterization Comprehensive Report Patient: Patricia Dunham Study ID: [id number] Gender: M : 1945 Age: 62 years Race: 1 Room: Bed: Height: 70 in ( 177.8 cm ) Study Date: November 08, 2007 Patient status: Inpatient Weight: 218 lb ( 99.1 kg ) Access. #: [id number] POC: Attending MD: Lien Performing MD: Lien [...] - Right heart catheterization. A 7 Fr Sh[place]inny Rica catheter was advanced to the pulmonary [...] placed and contrast was injected. 60 degree NEPALI projection - Arterial hemostasis was obtained by [...] 16:02:33 Procedure Note Provider, Historical - 06/03/2008 [address] [place] [address] [email or web address] Cardiac Catheterization Comprehensive Report Patient: Patricia Dunham Study ID: [id number] Gender: M : 1945 Age: 62 years Race: 1 Room: Bed: Height: 70 in ( 177.8 cm ) Study Date: November 08, 2007 Patient status: Inpatient Weight: 218 lb ( 99.1 kg ) Access. #: [id number] POC: Attending MD: Lien Blair MD: Lien [...] - Right heart catheterization. A 7 Fr Sh[place] Rica catheter was advancedto the pulmonary artery [...] placed and contrast was injected. 60 degree NEPALI projection - Arterial hemostasis was obtained by [...] FLUOROSCOPY ORDERABLES Final Result Performing Organization Address [facility] Co de Phone Number INTERFACE SYSTEM Refer to clinic/hospital department * POC GLUCOSE (11/16/2007 7:22 AM CDT) GLUCOSE POC 97 65 - 99 mg/dL [facility] Venous blood specimen (specimen) 11/16/2007 7:22 AM CDT 11/16/2007 7:22 AM CDT Jesusita Roland MD POINT OF CARE TESTING Final Result Performing Organization Address [facility] de Phone Number [facility] [address] [place] [address] * (ABNORMAL) PROTIME-INR (11/16/2007 5:00 AM CDT) PROTIME 20.4(H) 12.7 - 15.1 Seconds [facility] INR 1.7(H) 0.9 - 1.1 [facility] Comment: INR Therapeutic Range: Adult: 2.0 - 3.0 for pulmonary embolism or prophylaxis against venous thrombosis or systemic embolization. 2.0 - 3.0 for patients with tissue heart valves. 2.5 - 3.5 for patients with mechanical heart valves or post VT. Pediatric (12 years and under): 1.5 - [...] HAMM HEMATOLOGY ORDERABLES Edited Performing Organization Address City/[facility]/ZIP Co de Phone Number [facility] [address] [address] * (ABNORMAL) POC GLUCOSE (11/15/2007 8:06 PM CDT) GLUCOSE POC 123(H) 65 - 99 mg/dL [facility] Venous blood specimen (specimen) 11/15/2007 8:06 PM CDT 11/15/2007 8:06 PM CDT Jesusita Roland MD POINT OF CARE TESTING Final Result Performing Organization Address [facility] Co de Phone Number [facility] [address] [place] [address] * (ABNORMAL) POC GLUCOSE (11/15/2007 4:47 PM CDT) GLUCOSE POC 62(L) 65 - 99 mg/dL [facility] Venous blood specimen (specimen) 11/15/2007 4:47 PM CDT 11/15/2007 4:47 PM CDT Jesusita Roland MD POINT OF CARE TESTING Final Result Performing Organization Address City/[facility]/ZIP Co de Phone Number [facility] [address] [address] * (ABNORMAL) POC GLUCOSE (11/15/2007 10:57 AM CDT) GLUCOSE POC 162(H) 65 - 99 mg/dL [facility] Venous blood specimen (specimen) 11/15/2007 10:57 AM CDT 11/15/2007 10:57 AM CDT Jesusita Roland MD POINT OF CARE TESTING Final Result Performing Organization Address [facility] de Phone Number [facility] [address] [place] [address] * (ABNORMAL) PROTIME-INR (11/15/2007 4:00 AM CDT) PROTIME 16.8(H) 12.7 - 15.1 Seconds [facility] INR 1.4(H) 0.9 - 1.1 [facility] Comment: INR Therapeutic Range: Adult: 2.0 - 3.0 for pulmonary embolism or prophylaxis against venous thrombosis or systemic embolization. 2.0 - 3.0 for patients with tissue heart valves. 2.5 - 3.5 for patients with mechanical heart valves or post VT. Pediatric (12 years and under): 1.5 - [...] ORDERABLES F inal Result Performing Organization Address [facility] Co de Phone Number [facility] [address] [place] [address] * MAGNESIUM LEVEL (11/15/2007 4:00 AM CDT) MAGNESIUM 2.4 1.5 - 2.5 mg/dL [facility] Blood specimen (specimen) 11/15/2007 4:00 AM CDT 11/15/2007 4:24 AM CDT Mary Arellano Jr., MD CHEMISTRY ORDERABLES Fi nal Result Performing Organization Address [facility]/ZIP Co de Phone Number [facility] [address] [place] [address] * (ABNORMAL) BASIC METABOLIC PANEL (11/15/2007 4:00 AM CDT) CHLORIDE 99 96 - 108 mmol/L [facility] GLUCOSE 91 65 - 99 mg/dL [facility] SODIUM 134(L) 135 - 145 mmol/L [facility] CALCIUM 8.4 8.4 - 10.2 mg/dL [facility] CO2 26 22 - 30 mmol/L [facility] CREATININE 0.83 0.67 - 1.17 mg/dL [facility] POTASSIUM 4.3 3.5 - 4.9 mmol/L [facility] BUN 26(H) 6 - 20 mg/dL [facility] GFR, >60 >=60 mL/min/1. 7 sq meter [facility] GFR >60 >=60 mL/min/1. 7 sq meter [facility] Comment: Estimated GFR rate interpretative information for both Americans and non- Americans is available on the [facility] Intranet at: [email or web address] Select: Lab Policies and Procedures Select: Reference Ranges - GFR Blood specimen (specimen) 11/15/2007 4:00 AM CDT 11/15/2007 4:24 AM CDT Mary Arellano Jr., MD CHEMISTRY ORDERABLES Ed ited Performing Organization Address City/[facility]/ZIP Co de Phone Number [facility] [address] [place] [address] * (ABNORMAL) CBC WITH DIFFERENTIAL (11/15/2007 4:00 AM CDT) RBC 4.03(L) 4.50 - 5.40 M/uL [facility] MCHC 33.1 31.5 - 35.5 % [facility] MCV 98.3 82.0 - 99.0 fL [facility] PLATELETS 106(L) 140 - 350 K/uL [facility] HEMOGLOBIN 13.1(L) 13.6 - 16.5 g/dL [facility] RDW 13.3 11.5 - 14.5 % [facility] WBC 13.6(H) 4.0 - 9.8 K/uL [facility] MCH 32.5 27.2 - 32.6 pg [facility] MPV 12.2 9.3 - 12.4 fL [facility] HEMATOCRIT 39.6(L) 40.0 - 48.0 % [facility] RDW-STDEV 47.5 37.1 - 48.7 fL [facility] NEUTROPHILS 77(H) 45 - 70 % [facility] NEUTROPHIL ABSOLUTE 10.45(H) 1.90 - 7.00 K/uL [facility] EOSINOPHILS 1 0 - 7 % [facility] EOSINOPHIL ABSOLUTE 0.08 0.00 - 0.70 K/uL [facility] LYMPHOCYTES 11(L) 16 - 45 % [facility] LYMPHOCYTE ABSOLUTE 1.50 0.70 - 4.50 K/uL [facility] BASOPHILS 0 0 - 2 % [facility] BASOPHILS ABSOLUTE 0.01 0.00 - 0.20 K/uL [facility] MONOCYTES 11 3 - 13 % [facility] MONOCYTE ABSOLUTE 1.51(H) 0.10 - 1.30 K/uL [facility] Blood specimen (specimen) 11/15/2007 4:00 AM CDT 11/15/2007 4:24 AM CDT Mary Arellano Jr., MD HEMATOLOGY ORDERABLES E dited Performing Organization Address [facility] Co de Phone Number INTERFACE SYSTEM Refer to clinic/hospital department [facility] [address] [place] [address] * POC GLUCOSE (11/14/2007 8:08 PM CDT) GLUCOSE POC 93 65 - 99 mg/dL [facility] Venous blood specimen (specimen) 11/14/2007 8:08 PM CDT 11/14/2007 8:08 PM CDT Jesusita Roland MD POINT OF CARE TESTING Final Result Performing Organization Address [facility] Co de Phone Number [facility] [address] [address] * (ABNORMAL) POC GLUCOSE (11/14/2007 4:11 PM CDT) GLUCOSE POC 112(H) 65 - 99 mg/dL [facility] Venous blood specimen (specimen) 11/14/2007 4:11 PM CDT 11/14/2007 4:11 PM CDT Jesusita Roland MD POINT OF CARE TESTING Final Result Performing Organization Address City/[facility]/ZIP Co de Phone Number [facility] [address] [place] [address] * (ABNORMAL) POC GLUCOSE (11/14/2007 11:29 AM CDT) GLUCOSE POC 108(H) 65 - 99 mg/dL [facility] Venous blood specimen (specimen) 11/14/2007 11:29 AM CDT 11/14/2007 11:29 AM CDT Jesusita Roland MD POINT OF CARE TESTING Final Result [facility] [address] [place] [address] * POC GLUCOSE (11/14/2007 7:44 AM CDT) GLUCOSE POC 84 65 - 99 mg/dL [facility] Venous blood specimen (specimen) 11/14/2007 7:44 AM CDT 11/14/2007 7:44 AM CDT Jesusita Roland MD POINT OF CARE TESTING Final Result Performing Organization Address [facility] Co de Phone Number [facility] [address] [place] [address] * XR CHEST PA AND LATERAL (11/14/2007 5:55 AM CDT) Anatomical Region Laterality Modality Chest Other 11/14/2007 5:55 AM CDT Narrative 11/14/2007 8:46 AM CDT [facility] [address] [place], [place] [address] Admit Date: 11/02/2007 PATRICIA DUNHAM Sex: M Admit Prov: JESUSITA ROLAND Date: 1945 Primary Care Prov: MERYL FRIEDMAN CMRN: [id number] Room: [address] [place] [address] SSN: [id number] IMAGING SERVICES Ordering Prov: N/A Accession Number: [id number] Interpretation Chest 2 views, 11/14/07 Comparison: 11/12/2007 [...] 08:46 Procedure Note Asia Alarcon - 11/14/2007 [facility] [address] [place], [place] [address] Admit Date: 11/02/2007 PATRICIA DUNHAM Sex: M Admit Prov: JESUSITA ROLAND Date: 1945 Primary Care Prov: MERYL FRIEDMAN CMRN: [id number] Room: [address] [place] [address] SSN: [id number] IMAGING SERVICES Ordering Prov: N/A Interpretation Chest [...] Mary Arellano Jr., MD DIAGNOSTIC IMAGING ORDChavo [facility] Final Result * (ABNORMAL) CBC WITH DIFFERENTIAL (11/14/2007 4:25 AM CDT) MCH 32.1 27.2 - 32.6 pg [facility] MPV 12.5(H) 9.3 - 12.4 fL [facility] HEMATOCRIT 40.3 40.0 - 48.0 % [facility] RDW-STDEV 48.3 37.1 - 48.7 fL [facility] RBC 4.05(L) 4.50 - 5.40 M/uL [facility] MCHC 32.3 31.5 - 35.5 % [facility] MCV 99.5(H) 82.0 - 99.0 fL [facility] PLATELETS 81(L) 140 - 350 K/uL [facility] Comment: Persistent abnormal result HEMOGLOBIN 13.0(L) 13.6 - 16.5 g/dL [facility] RDW 13.3 11.5 - 14.5 % [facility] WBC 15.4(H) 4.0 - 9.8 K/uL [facility] MONOCYTE ABSOLUTE 1.92(H) 0.10 - 1.30 K/uL [facility] NEUTROPHILS 79(H) 45 - 70 % [facility] NEUTROPHIL ABSOLUTE 12.20(H) 1.90 - 7.00 K/uL [facility] EOSINOPHILS 0 0 - 7 % [facility] EOSINOPHIL ABSOLUTE 0.03 0.00 - 0.70 K/uL [facility] LYMPHOCYTES 8(L) 16 - 45 % [facility] LYMPHOCYTE ABSOLUTE 1.20 0.70 - 4.50 K/uL [facility] BASOPHILS 0 0 - 2 % [facility] BASOPHILS ABSOLUTE 0.02 0.00 - 0.20 K/uL [facility] MONOCYTES 13 3 - 13 % [facility] Blood specimen (specimen) 11/14/2007 4:25 AM CDT 11/14/2007 5:48 AM CDT us Charleen HAMM HEMATOLOGY ORDERABLES Edited INTERFACE SYSTEM Refer to clinic/hospital department [facility] [address] [place] [address] * (ABNORMAL) POC GLUCOSE (11/13/2007 8:54 PM CDT) GLUCOSE POC 114(H) 65 - 99 mg/dL [facility] Venous blood specimen (specimen) 11/13/2007 8:54 PM CDT 11/13/2007 8:54 PM CDT us Jesusita Roland MD POINT OF CARE TESTING Final Result Performing Organization Address [facility]/ZIP Co de Phone Number [facility] [address] [address] * (ABNORMAL) POC GLUCOSE (11/13/2007 4:21 PM CDT) GLUCOSE POC 64(L) 65 - 99 mg/dL [facility] Venous blood specimen (specimen) 11/13/2007 4:21 PM CDT 11/13/2007 4:21 PM CDT us Jesusita Roland MD POINT OF CARE TESTING Final Result Performing Organization Address [facility] Co de Phone Number [facility] [address] [address] * (ABNORMAL) POC GLUCOSE (11/13/2007 11:25 AM CDT) GLUCOSE POC 161(H) 65 - 99 mg/dL [facility] Venous blood specimen (specimen) 11/13/2007 11:25 AM CDT 11/13/2007 11:25 AM CDT us Jesusita Roland MD POINT OF CARE TESTING Final Result Performing Organization Address City/[facility] Co de Phone Number [facility] [address] [place] [address] * (ABNORMAL) POC GLUCOSE (11/13/2007 7:23 AM CDT) GLUCOSE POC 101(H) 65 - 99 mg/dL [facility] Venous blood specimen (specimen) 11/13/2007 7:23 AM CDT 11/13/2007 7:23 AM CDT Jesusita Rloand MD POINT OF CARE TESTING Final Result Performing Organization Address City/[facility]/ZIP Co de Phone Number [facility] [address] [place] [address] * MAGNESIUM LEVEL (11/13/2007 5:00 AM CDT) MAGNESIUM 2.3 1.5 - 2.5 mg/dL [facility] Blood specimen (specimen) 11/13/2007 5:00 AM CDT 11/13/2007 5:46 AM CDT Mary Arellano Jr., MD CHEMISTRY ORDERABLES Fi nal Result Performing Organization Address [facility] Co de Phone Number [facility] [address] [place] [address] * (ABNORMAL) BASIC METABOLIC PANEL (11/13/2007 5:00 AM CDT) BUN 17 6 - 20 mg/dL [facility] CHLORIDE 100 96 - 108 mmol/L [facility] GLUCOSE 106(H) 65 - 99 mg/dL [facility] SODIUM 135 135 - 145 mmol/L [facility] CALCIUM 8.7 8.4 - 10.2 mg/dL [facility] CO2 28 22 - 30 mmol/L [facility] CREATININE 0.93 0.67 - 1.17 mg/dL [facility] POTASSIUM 4.6 3.5 - 4.9 mmol/L [facility] GFR, >60 >=60 mL/min/1. 7 sq meter [facility] GFR >60 >=60 mL/min/1. 7 sq meter [facility] Comment: Estimated GFR rate interpretative information for both Americans and non- Americans is available on the [facility] Intranet at: [email or web address] Select: Lab Policies and Procedures Select: Reference Ranges - GFR Blood specimen (specimen) 11/13/2007 5:00 AM CDT 11/13/2007 5:46 AM CDT Mary Arellano Jr., MD CHEMISTRY ORDERABLES Ed ited [facility] [address] [place] [address] * (ABNORMAL) CBC WITH DIFFERENTIAL (11/13/2007 5:00 AM CDT) HEMATOCRIT 44.2 40.0 - 48.0 % [facility] RDW-STDEV 47.5 37.1 - 48.7 fL [facility] RBC 4.43(L) 4.50 - 5.40 M/uL [facility] MCHC 32.6 31.5 - 35.5 % [facility] MCV 99.8(H) 82.0 - 99.0 fL [facility] PLATELETS 82(L) 140 - 350 K/uL [facility] HEMOGLOBIN 14.4 13.6 - 16.5 g/dL [facility] RDW 13.2 11.5 - 14.5 % [facility] WBC 19.9(H) 4.0 - 9.8 K/uL [facility] MCH 32.5 27.2 - 32.6 pg [facility] MPV 12.7(H) 9.3 - 12.4 fL [facility] EOSINOPHILS 0 0 - 7 % [facility] EOSINOPHIL ABSOLUTE 0.04 0.00 - 0.70 K/uL [facility] LYMPHOCYTES 7(L) 16 - 45 % [facility] LYMPHOCYTE ABSOLUTE 1.37 0.70 - 4.50 K/uL [facility] BASOPHILS 0 0 - 2 % [facility] BASOPHILS ABSOLUTE 0.02 0.00 - 0.20 K/uL [facility] MONOCYTES 12 3 - 13 % [facility] MONOCYTE ABSOLUTE 2.40(H) 0.10 - 1.30 K/uL [facility] NEUTROPHILS 81(H) 45 - 70 % [facility] NEUTROPHIL ABSOLUTE 16.10(H) 1.90 - 7.00 K/uL [facility] Blood specimen (specimen) 11/13/2007 5:00 AM CDT 11/13/2007 5:46 AM CDT us Mary Arellano Jr., MD HEMATOLOGY ORDERABLES E dited INTERFACE SYSTEM Refer to clinic/hospital department [facility] [address] [place] [address] * (ABNORMAL) POC GLUCOSE (11/12/2007 8:47 PM CDT) GLUCOSE POC 174(H) 65 - 99 mg/dL [facility] Venous blood specimen (specimen) 11/12/2007 8:47 PM CDT 11/12/2007 8:47 PM CDT us Jesusita Roland MD POINT OF CARE TESTING Final Result Performing Organization Address [facility] Co de Phone Number [facility] [address] [address] * (ABNORMAL) POC GLUCOSE (11/12/2007 6:10 PM CDT) GLUCOSE POC 165(H) 65 - 99 mg/dL [facility] Venous blood specimen (specimen) 11/12/2007 6:10 PM CDT 11/12/2007 6:10 PM CDT Jesusita Roland MD POINT OF CARE TESTING Final Result [facility] [address] [place] [address] * (ABNORMAL) POC GLUCOSE (11/12/2007 12:15 PM CDT) COMMENT, GLU POC Notified RN [facility] GLUCOSE POC 177(H) 65 - 99 mg/dL [facility] Venous blood specimen (specimen) 11/12/2007 12:15 PM CDT 11/12/2007 12:15 PM CDT Jesusita Roland MD POINT OF CARE TESTING Final Result Performing Organization Address [facility] Co de Phone Number [facility] [address] [place] [address] * XR CHEST PA OR AP (11/12/2007 8:55 AM CDT) Anatomical Region Laterality Modality Chest Other 11/12/2007 8:55 AM CDT Narrative 11/12/2007 9:23 AM CDT [facility] [address] [place], [place] [address] Admit Date: 11/02/2007 PATRICIA DUNHAM Sex: M Admit Prov: JESUSITA ROLAND Date: 1945 Primary Care Prov: MERYL FRIEDMAN CMRN: [id number] Room: [address] [place] [address] SSN: [id number] IMAGING SERVICES Ordering Prov: N/A Accession Number: [id number] Interpretation Chest single view 11/12/2007 History: Chest [...] 09:23 Procedure Note Jessica Pepe - 11/12/2007 [facility] [address] [place], [place] [address] Admit Date: 11/02/2007 PATRICIA DUNHAM Sex: M Admit Prov: JESUSITA ROLAND Date: 1945 Primary Care Prov: CARMINEBee MERYL Luh CMRN: [id number] Room: [address] [place] [address] SSN: [id number] IMAGING SERVICES Ordering Prov: N/A Interpretation Chest [...] GLUCOSE POC 176(H) 65 - 99 mg/dL [facility] Venous blood specimen (specimen) 11/12/2007 7:40 AM CDT 11/12/2007 7:40 AM CDT us Jesusita Roland MD POINT OF CARE TESTING Final Result [facility] [address] [place] [id number] * XR CHEST PA OR AP (11/12/2007 7:20 AM CDT) Anatomical Region Laterality Modality Chest Other 11/12/2007 7:20 AM CDT Narrative 11/12/2007 9:12 AM CDT [facility] [address] [place], [place] [address] Admit Date: 11/02/2007 PATRICIA DUNHAM Sex: M Admit Prov: JESUSITA ROLAND Date: 1945 Primary Care Prov: MERYL FRIEDMAN CMRN: [id number] Room: [address] [place] [address] SSN: [id number] IMAGING SERVICES Ordering Prov: N/A Accession Number: [id number] Interpretation Chest single view 11/12/2007 History: Postop Findings: Comparison study is from the same day. The right [place] catheter has been removed. There is right intravenous catheter with its tip in SVC. One of the left chest tubes has been removed. No pneumothorax is seen. Small left pleural effusion and mild left lower lobe atelectasis are noted. . Dictated by: JESSICA PEPE 11/12/2007 09:11 Electronically signed by: JESSICA PEPE 11/12/2007 09:12 Procedure Note Jessica Pepe - 11/12/2007 [address] [place], [place] [address] Admit Date: 11/02/2007 ANIKETPATRICIA MERRITT Sex: M Admit Prov: JESUSITA ROLAND Date: 1945 Primary Care Prov: MERYL FRIEDMAN CMRN: [id number] Room: [address] [place] [address] SSN: [id number] IMAGING SERVICES Ordering Prov: N/A Interpretation Chest [...] GLUCOSE POC 151(H) 65 - 99 mg/dL [facility] Venous blood specimen (specimen) 11/12/2007 6:18 AM CDT 11/12/2007 6:18 AM CDT us Jesusita Roland MD POINT OF CARE TESTING Final Result Performing Organization Address City/State/[facility] Co de Phone Number [facility] [address] [place] [address] * XR CHEST PA OR AP (11/12/2007 5:20 AM CDT) Anatomical Region Laterality Modality Chest Other 11/12/2007 5:20 AM CDT Narrative 11/12/2007 9:04 AM CDT [facility] [address] [place], [place] [address] Admit Date: 11/02/2007 PATRICIA DUNHAM Sex: M Admit Prov: JESUSITA ROLAND Date: 1945 Primary Care Prov: MERYL FRIEDMAN CMRN: [id number] Room: [facility] SSN: [id number] IMAGING SERVICES Ordering Prov: N/A Accession Number: [id number] Interpretation Chest, 11/12/2007 Clinical History: Respiratory abnormality and previous cardiac surgery. AP portable semiupright view of the chest on 11/12/2007 at 0515 hours is compared to 11/11/2007. The patient has been extubated. The patient is status post median sternotomy and prosthetic aortic valve. The mediastinal drainage tubes and left basilar chest tube are unchanged. A Shickshinny-Rica catheter is noted with the tip projected [...] Procedure Note Jenna Maldonado MD - 11/12/2007 [facility] [address] [place], [place] [address] Admit Date: 11/02/2007 PATRICIA DUNHAM Sex: M Admit Prov: JESUSITA ROLAND Date: 1945 Primary Care Prov: AISHALopezMERYL GIORDANO Luh CMRN: [id number] Room: [address] [place] [address] SSN: [id number] IMAGING SERVICES Ordering Prov: N/A Interpretation Chest, [...] GLUCOSE POC 141(H) 65 - 99 mg/dL [facility] Venous blood specimen (specimen) 11/12/2007 5:06 AM CDT 11/12/2007 5:06 AM CDT Jesusita Roland MD POINT OF CARE TESTING Final Result Performing Organization Address City/[facility]/ZIP Co de Phone Number [facility] [address] [place] [address] * (ABNORMAL) POC GLUCOSE (11/12/2007 4:24 AM CDT) GLUCOSE POC 110(H) 65 - 99 mg/dL [facility] Venous blood specimen (specimen) 11/12/2007 4:24 AM CDT 11/12/2007 4:24 AM CDT Jesusita Roland MD POINT OF CARE TESTING Final Result Performing Organization Address City/[facility]/ZIP Co de Phone Number [facility] [address] [place] [address] * (ABNORMAL) PT AND APTT (11/12/2007 4:15 AM CDT) INR 1.3(H) 0.9 - 1.1 [facility] Comment: INR Therapeutic Range: Adult: 2.0 - 3.0 for pulmonary embolism or prophylaxis against venous thrombosis or systemic embolization. 2.0 - 3.0 for patients with tissue heart valves. 2.5 - 3.5 for patients with mechanical heart valves or post VT. Pediatric (12 years and under): 1.5 - 3.0 Although the target range in children is not well established, INR values of 1.5 - 3.0 are recommended for most patients. Higher values have been used in children with prosthetic cardiac valves and hereditary clotting disorders. (<3 days) therapeutic ranges have not been established. PROTIME 16.3(H) 12.7 - 15.1 Seconds [facility] PTT 26.9 24.4 - 36.4 Seconds [facility] Comment: PTT Therapeutic Range: Heparin Level PTT (seconds) <0.10 units/mL <53 0.10 - 0.30 units/mL 53 - 67 0.30 - 0.70 units/mL* 67 - 95* 0.70 - 1.00 units/mL 95 - 116 *corresponds to therapeutic range for unfractionated heparin Blood specimen (specimen) 11/12/2007 4:15 AM CDT 11/12/2007 4:35 AM CDT Mary Arellano Jr., MD HEMATOLOGY ORDERABLES E dited [facility] [address] [facility] [place] [address] * (ABNORMAL) COMPREHENSIVE METABOLIC PANEL (11/12/2007 4:15 AM CDT) ALKALINE PHOSPHATASE 35(L) 40 - 129 U/L [facility] BILIRUBIN TOTAL 0.5 0.2 - 1.0 mg/dL [facility] CO2 22 22 - 30 mmol/L [facility] TOTAL PROTEIN 5.5(L) 6.3 - 8.6 g/dL [facility] POTASSIUM 4.8 3.5 - 4.9 mmol/L [facility] Comment: Slight hemolysis present. Result may be falsely elevated. GLUCOSE 144(H) 65 - 99 mg/dL [facility] AST 44(H) 12 - 38 U/L [facility] Comment: Hemolyzed: Result may be falsely elevated. BUN 14 6 - 20 mg/dL [facility] CALCIUM 7.8(L) 8.4 - 10.2 mg/dL [facility] CHLORIDE 108 96 - 108 mmol/L [facility] ALBUMIN 3.2(L) 3.4 - 4.8 g/dL [facility] CREATININE 0.89 0.67 - 1.17 mg/dL [facility] SODIUM 139 135 - 145 mmol/L [facility] ALT 25 0 - 41 U/L [facility] GFR, >60 >=60 mL/min/1. 7 sq meter [facility] GFR >60 >=60 mL/min/1. 7 sq meter [facility] Comment: Estimated GFR rate interpretative information for both Americans and non- Americans is available on the [facility] Intranet at: [email or web address] Select: Lab Policies and Procedures Select: Reference Ranges - GFR Blood specimen (specimen) 11/12/2007 4:15 AM CDT 11/12/2007 4:35 AM CDT Mary Arellano Jr., MD CHEMISTRY ORDERABLES Ed ited [facility] [address] [facility] [address] * (ABNORMAL) CVR ONLY, CKMB/CK (11/12/2007 4:15 AM CDT) CKMB 18.2(AA) <=6.7 ng/mL [facility] Comment: Persistent abnormal result CKMB INTERP See Below [facility] Comment: Elevated CKMB,Consistent with Myocardial Injury CK 326(H) 10 - 170 U/L [facility] Comment: Hemolyzed: Result may be falsely elevated. CARDIAC RELATIVE INDEX 5.6(H) <=4.0 [facility] Blood specimen (specimen) 11/12/2007 4:15 AM CDT 11/12/2007 4:35 AM CDT Mary Arellano Jr., MD CHEMISTRY ORDERABLES Ed ited [facility] [address] [place], [place] [address] * (ABNORMAL) CBC WITH DIFFERENTIAL (11/12/2007 4:15 AM CDT) MCV 98.6 82.0 - 99.0 fL [facility] HEMOGLOBIN 15.9 13.6 - 16.5 g/dL [facility] RDW 13.1 11.5 - 14.5 % [facility] WBC 18.2(H) 4.0 - 9.8 K/uL [facility] MCH 32.9(H) 27.2 - 32.6 pg [facility] HEMATOCRIT 47.7 40.0 - 48.0 % [facility] RDW-STDEV 47.1 37.1 - 48.7 fL [facility] RBC 4.84 4.50 - 5.40 M/uL [facility] MCHC 33.3 31.5 - 35.5 % [facility] EOSINOPHILS 0 0 - 7 % [facility] EOSINOPHIL ABSOLUTE 0.00 0.00 - 0.70 K/uL [facility] LYMPHOCYTES 3(L) 16 - 45 % [facility] LYMPHOCYTE ABSOLUTE 0.52(L) 0.70 - 4.50 K/uL [facility] BASOPHILS 0 0 - 2 % [facility] BASOPHILS ABSOLUTE 0.02 0.00 - 0.20 K/uL [facility] MONOCYTES 9 3 - 13 % [facility] MONOCYTE ABSOLUTE 1.70(H) 0.10 - 1.30 K/uL [facility] NEUTROPHILS 88(H) 45 - 70 % [facility] NEUTROPHIL ABSOLUTE 15.98(H) 1.90 - 7.00 K/uL [facility] PLATELETS 81(L) 140 - 350 K/uL [facility] Comment: Platelets verified by smear review. MPV 12.7(H) 9.3 - 12.4 fL [facility] Blood specimen (specimen) 11/12/2007 4:15 AM CDT 11/12/2007 4:35 AM CDT Mary Arellano Jr., MD HEMATOLOGY ORDERABLES E dited Performing Organization Address City/[facility]/ZIP Co de Phone Number [facility] [address] [place] [address] * (ABNORMAL) POC GLUCOSE (11/12/2007 3:11 AM CDT) GLUCOSE POC 140(H) 65 - 99 mg/dL [facility] Venous blood specimen (specimen) 11/12/2007 3:11 AM CDT 11/12/2007 3:11 AM CDT Jesusita Roland MD POINT OF CARE TESTING Final Result Performing Organization Address [facility]/ZIP Co de Phone Number [facility] [address] [place] [address] * (ABNORMAL) POC GLUCOSE (11/12/2007 2:08 AM CDT) GLUCOSE POC 137(H) 65 - 99 mg/dL [facility] Venous blood specimen (specimen) 11/12/2007 2:08 AM CDT 11/12/2007 2:08 AM CDT us Jesusita Roland MD POINT OF CARE TESTING Final Result Performing Organization Address [facility] de Phone Number [facility] [address] [place], [place] [address] * (ABNORMAL) POC GLUCOSE (11/12/2007 1:00 AM CDT) GLUCOSE POC 186(H) 65 - 99 mg/dL [facility] Venous blood specimen (specimen) 11/12/2007 1:00 AM CDT 11/12/2007 1:00 AM CDT us Jesusita Roland MD POINT OF CARE TESTING Final Result Performing Organization Address [facility] de Phone Number [facility] [address] [place], [place] [address] * (ABNORMAL) POC GLUCOSE (11/12/2007 12:19 AM CDT) GLUCOSE POC 218(H) 65 - 99 mg/dL [facility] Venous blood specimen (specimen) 11/12/2007 12:19 AM CDT 11/12/2007 12:19 AM CDT us Jesusita Roland MD POINT OF CARE TESTING Final Result Performing Organization Address [facility] de Phone Number [facility] [address] [place] [address] * POTASSIUM LEVEL (11/12/2007 12:12 AM CDT) POTASSIUM 4.8 3.5 - 4.9 mmol/L [facility] Blood specimen (specimen) 11/12/2007 12:12 AM CDT 11/12/2007 12:17 AM CDT Mary Arellano Jr., MD CHEMISTRY ORDERABLES Fi nal Result Performing Organization Address [facility]/ZIP Co de Phone Number [facility] [address] [place] [address] * (ABNORMAL) POC GLUCOSE (11/11/2007 11:07 PM CDT) GLUCOSE POC 169(H) 65 - 99 mg/dL [facility] Venous blood specimen (specimen) 11/11/2007 11:07 PM CDT 11/11/2007 11:07 PM CDT Jesusita Roland MD POINT OF CARE TESTING Final Result Performing Organization Address [facility] Co de Phone Number [facility] [address] [place] [address] * (ABNORMAL) POC GLUCOSE (11/11/2007 10:21 PM CDT) GLUCOSE POC 137(H) 65 - 99 mg/dL [facility] Venous blood specimen (specimen) 11/11/2007 10:21 PM CDT 11/11/2007 10:21 PM CDT Jesusita Roland MD POINT OF CARE TESTING Final Result Performing Organization Address [facility] Co de Phone Number [facility] [address] [place] [address] * (ABNORMAL) POC RT, BLOOD GASES (11/11/2007 10:01 PM CDT) PH ARTERIAL 7.37 7.35 - 7.45 [facility] BASE EXCESS ABG -1.6 -2.0 - 3.0 mmol/L [facility] COMMENT, GASES POC RN NOTIFIED [facility] HEMATOCRIT POC 46.0 40.0 - 48.0 % [facility] O2 SAT EST ABG POC 99 95 - 99 % [facility] POTASSIUM POC 5.3(H) 3.5 - 4.9 mmol/L [facility] PCO2 ARTERIAL 41 35 - 48 mm Hg [facility] FIO2 40 [facility] HCO3 ARTERIAL 24 22 - 26 mmol/L [facility] PATIENT'S TEMPERATURE 37.0 Degree C [facility] CALICUM IONIZED, WHOLE BLOOD 4.33(L) 4.76 - 5.16 mg/dL [facility] PEEP POC 5 [facility] PO2 ARTERIAL 137(H) 83 - 108 mm Hg [facility] SODIUM POC 131(L) 135 - 145 mmol/L [facility] OXYGEN MODE SIMV [facility] Blood specimen (specimen) 11/11/2007 10:01 PM CDT 11/11/2007 10:01 PM CDT Jesusita Roland MD CHEMISTRY ORDERABLES Final R esult Performing Organization Address City/[facility]/ZIP Co de Phone Number [facility] [address] [facility] [place] [address] * (ABNORMAL) POC GLUCOSE (11/11/2007 9:11 PM CDT) GLUCOSE POC 166(H) 65 - 99 mg/dL [facility] Venous blood specimen (specimen) 11/11/2007 9:11 PM CDT 11/11/2007 9:11 PM CDT Jesusita Roland MD POINT OF CARE TESTING Final Result [facility] [address] [place] [address] * (ABNORMAL) POC GLUCOSE (11/11/2007 8:02 PM CDT) GLUCOSE POC 127(H) 65 - 99 mg/dL [facility] Venous blood specimen (specimen) 11/11/2007 8:02 PM CDT 11/11/2007 8:02 PM CDT Jesusita Roland MD POINT OF CARE TESTING Final Result Performing Organization Address [facility] Co de Phone Number [facility] [address] [place] [address] * (ABNORMAL) POTASSIUM LEVEL (11/11/2007 7:55 PM CDT) POTASSIUM 5.2(H) 3.5 - 4.9 mmol/L [facility] Comment: No significant hemolysis Blood specimen (specimen) 11/11/2007 7:55 PM CDT 11/11/2007 8:04 PM CDT Mary Arellano Jr., MD CHEMISTRY ORDERABLES Fi nal Result Performing Organization Address [facility] Co de Phone Number [facility] [address] [place] [address] * (ABNORMAL) POC RT, BLOOD GASES (11/11/2007 5:30 PM CDT) POTASSIUM POC 4.4 3.5 - 4.9 mmol/L [facility] PCO2 ARTERIAL 45 35 - 48 mm Hg [facility] FIO2 60 [facility] HCO3 ARTERIAL 25 22 - 26 mmol/L [facility] PATIENT'S TEMPERATURE 37.0 Degree C [facility] CALICUM IONIZED, WHOLE BLOOD 4.77 4.76 - 5.16 mg/dL [facility] PEEP POC 5 [facility] PO2 ARTERIAL 128(H) 83 - 108 mm Hg [facility] SODIUM POC 133(L) 135 - 145 mmol/L [facility] OXYGEN MODE SIMV/PSV [facility] PH ARTERIAL 7.36 7.35 - 7.45 [facility] BASE EXCESS ABG -0.4 -2.0 - 3.0 mmol/L [facility] COMMENT, GASES POC NOTIFIED [facility] HEMATOCRIT POC 43.0 40.0 - 48.0 % [facility] O2 SAT EST ABG POC 99 95 - 99 % [facility] Blood specimen (specimen) 11/11/2007 5:30 PM CDT 11/11/2007 5:30 PM CDT Result [facility] Jesusita Roland MD CHEMISTRY ORDERABLES Final R esult Performing Organization Address [facility]/ZIP Co de Phone Number [facility] [address] [place] [address] * (ABNORMAL) POC GLUCOSE (11/11/2007 5:23 PM CDT) GLUCOSE POC 140(H) 65 - 99 mg/dL [facility] Venous blood specimen (specimen) 11/11/2007 5:23 PM CDT 11/11/2007 5:23 PM CDT Jesusita Roland MD POINT OF CARE TESTING Final Result Performing Organization Address [facility] Co de Phone Number [facility] [address] [place] [address] * (ABNORMAL) PT AND APTT (11/11/2007 5:14 PM CDT) PROTIME 19.0(H) 12.7 - 15.1 Seconds [facility] INR 1.6(H) 0.9 - 1.1 [facility] Comment: INR Therapeutic Range: Adult: 2.0 - 3.0 for pulmonary embolism or prophylaxis against venous thrombosis or systemic embolization. 2.0 - 3.0 for patients with tissue heart valves. 2.5 - 3.5 for patients with mechanical heart valves or post VT. Pediatric (12 years and under): 1.5 - 3.0 Although the target range in children is not well established, INR values of 1.5 - 3.0 are recommended for most patients. Higher values have been used in children with prosthetic cardiac valves and hereditary clotting disorders. (<3 days) therapeutic ranges have not been established. PTT 31.1 24.4 - 36.4 Seconds [facility] Comment: PTT Therapeutic Range: Heparin Level PTT (seconds) <0.10 units/mL <53 0.10 - 0.30 units/mL 53 - 67 0.30 - 0.70 units/mL* 67 - 95* 0.70 - 1.00 units/mL 95 - 116 *corresponds to therapeutic range for unfractionated heparin PROTIME COMMENT Slightly Hemolyzed [facility] PTT COMMENT Slightly Hemolyzed [facility] Blood specimen (specimen) 11/11/2007 5:14 PM CDT 11/11/2007 5:30 PM CDT Mary Arellano Jr., MD HEMATOLOGY ORDERABLES E dited Performing Organization Address City/[facility]/ZIP Co de Phone Number [facility] [address] [place] [address] * (ABNORMAL) MAGNESIUM LEVEL (11/11/2007 5:14 PM CDT) MAGNESIUM 2.9(H) 1.5 - 2.5 mg/dL [facility] Blood specimen (specimen) 11/11/2007 5:14 PM CDT 11/11/2007 5:30 PM CDT Mary Arellano Jr., MD CHEMISTRY ORDERABLES Fi nal Result Performing Organization Address City/[facility]/ZIP Co de Phone Number [facility] [address] [place] [address] * (ABNORMAL) CVR ONLY, CKMB/CK (11/11/2007 5:14 PM CDT) Pathologist [facility] CKMB 15.8(AA) <=6.7 ng/mL [facility] Comment: Results called to Mona at 11/11/07 5:58 PM and read back verified. CKMB INTERP See Below [facility] Comment: Elevated CKMB,Consistent with Myocardial Injury. CK 156 10 - 170 U/L [facility] CARDIAC RELATIVE INDEX N/A <=4.0 [facility] Blood specimen (specimen) 11/11/2007 5:14 PM CDT 11/11/2007 5:30 PM CDT Mary Arellano Jr., MD CHEMISTRY ORDERABLES Ed ited [facility] [address] [facility] [address] * (ABNORMAL) BASIC METABOLIC PANEL (11/11/2007 5:14 PM CDT) Pathologist [facility] BUN 15 6 - 20 mg/dL [facility] CHLORIDE 106 96 - 108 mmol/L [facility] GLUCOSE 142(H) 65 - 99 mg/dL [facility] SODIUM 135 135 - 145 mmol/L [facility] CALCIUM 8.2(L) 8.4 - 10.2 mg/dL [facility] CO2 22 22 - 30 mmol/L [facility] CREATININE 0.87 0.67 - 1.17 mg/dL [facility] POTASSIUM 4.5 3.5 - 4.9 mmol/L [facility] Comment: Moderate hemolysis present. Can cause significant falsely elevated result. Clinical judgement necessary. Redraw if indicated. GFR, >60 >=60 mL/min/1. 7 sq meter [facility] GFR >60 >=60 mL/min/1. 7 sq meter [facility] Comment: Estimated GFR rate interpretative information for both Americans and non- Americans is available on the [facility] Intranet at: [email or web address] Select: Lab Policies and Procedures Select: Reference Ranges - GFR Blood specimen (specimen) 11/11/2007 5:14 PM CDT 11/11/2007 5:30 PM CDT Mary Arellano Jr., MD CHEMISTRY ORDERABLES Ed ited [facility] [address] [place], [place] [address] * (ABNORMAL) CBC WITH DIFFERENTIAL (11/11/2007 5:14 PM CDT) HEMATOCRIT 45.6 40.0 - 48.0 % [facility] RDW-STDEV 46.7 37.1 - 48.7 fL [facility] RBC 4.64 4.50 - 5.40 M/uL [facility] MCHC 33.8 31.5 - 35.5 % [facility] MCV 98.3 82.0 - 99.0 fL [facility] HEMOGLOBIN 15.4 13.6 - 16.5 g/dL [facility] RDW 13.0 11.5 - 14.5 % [facility] WBC 21.8(H) 4.0 - 9.8 K/uL [facility] MCH 33.2(H) 27.2 - 32.6 pg [facility] MPV 11.7 9.3 - 12.4 fL [facility] PLATELETS 91(L) 140 - 350 K/uL [facility] PLATELET EST. Consistent w/ count Normal [facility] BASOPHILS ABSOLUTE 0.00 0.00 - 0.20 K/uL [facility] EOSINOPHILS 0 0 - 7 % [facility] MONOCYTE ABSOLUTE 1.31(H) 0.10 - 1.30 K/uL [facility] RBC MORPHOLOGY Normal Normal [facility] LYMPHOCYTES 1(L) 16 - 45 % [facility] NEUTROPHIL ABSOLUTE 20.27(H) 1.90 - 7.00 K/uL [facility] NEUTROPHILS, SEG 88(H) 45 - 70 % [facility] BASOPHILS 0 0 - 2 % [facility] EOSINOPHIL ABSOLUTE 0.00 0.00 - 0.70 K/uL [facility] MONOCYTES 6 3 - 13 % [facility] REVIEWED ON SMEAR Plt OK by Smear Rev. [facility] LYMPHOCYTE ABSOLUTE 0.22(L) 0.70 - 4.50 K/uL [facility] BANDS 5 0 - 5 % [facility] Blood specimen (specimen) 11/11/2007 5:14 PM CDT 11/11/2007 5:30 PM CDT us Mary Arellano Jr., MD HEMATOLOGY ORDERABLES E dited [facility] [address] [place] [address] * XR CHEST PA OR AP (11/11/2007 5:14 PM CDT) Anatomical Region Laterality Modality Chest Other 11/11/2007 5:14 PM CDT Narrative 11/11/2007 11:27 PM CDT [facility] [address] [place], [place] [address] Admit Date: 11/02/2007 PATRICIA DUNHAM Sex: M Admit Prov: JESUSITA ROLAND Date: 1945 Primary Care Prov: MERYL FRIEDMAN CMRN: [id number] Room: [address] [place] [address] SSN: [id number] IMAGING SERVICES Ordering Prov: N/A Accession Number: [id number] Interpretation CHEST, AP PORTABLE, 11/11/2007, 1725 HOURS History: Cardiac surgery. Findings: Sternal wires and mediastinal drains indicate recent cardiac surgery. Prosthetic heart valve is present. Endotracheal tube ends at the clavicles. Right internal jugular Shickshinny-Rica catheter ends in the right pulmonary artery. Right lung is clear. Left basilar atelectasis and/or small left effusion are present. There is no pneumothorax. . Dictated by: CONRADO SCHROEDER 11/11/2007 17:39 Electronically signed by: CONRADO SCHROEDER 11/11/2007 23:27 Transcribed: 11/11/2007 17:41 SMM Procedure Note Conrado Schroeder MD - 11/11/2007 [facility] [address] [place], [place] [address] Admit Date: 11/02/2007 PATRICIA DUNHAM Sex: M Admit Prov: JESUSITA ROLAND Date: 1945 Primary Care Prov: MERYL FRIEDMAN CMRN: [id number] Room: [address] [place] [address] SSN: [id number] IMAGING SERVICES Ordering Prov: N/A Interpretation CHEST, AP PORTABLE, 11/11/2007, 1725 HOURS History: Cardiac surgery. Findings: Sternal wires and mediastinal drains indicate recentcardiac surgery. Prosthetic heart valve is present. Endotracheal tube ends atthe clavicles. Right internal jugular Shickshinny-Rica catheter ends in theright pulmonary artery. Right [...] ARTERIAL 427(H) 83 - 108 mm Hg [facility] SODIUM POC 133(L) 135 - 145 mmol/L [facility] TCO2, ABG POC 26(H) 19 - 24 mmol/L [facility] PH ARTERIAL 7.36 7.35 - 7.45 [facility] BASE EXCESS ABG -1.2 -2.0 - 3.0 mmol/L [facility] HEMATOCRIT POC 35.0(L) 40.0 - 48.0 % [facility] O2 SAT EST ABG POC 100(H) 95 - 99 % [facility] LACTIC ACID 2.1 0.5 - 2.2 mmol/L [facility] POTASSIUM POC 4.3 3.5 - 4.9 mmol/L [facility] PCO2 ARTERIAL 43 35 - 48 mm Hg [facility] HCO3 ARTERIAL 24 22 - 26 mmol/L [facility] PATIENT'S TEMPERATURE 37.0 Degree C [facility] CALICUM IONIZED, WHOLE BLOOD 5.05 4.76 - 5.16 mg/dL [facility] GLUCOSE POC 176(H) 65 - 99 mg/dL [facility] Blood specimen (specimen) 11/11/2007 4:44 PM CDT 11/11/2007 4:44 PM CDT Jesusita Roland MD CHEMISTRY ORDERABLES Final R esult [facility] [address] [place] [address] * (ABNORMAL) POC RT, BLOOD GASES (11/11/2007 4:17 PM CDT) GLUCOSE POC 200(H) 65 - 99 mg/dL [facility] O2 SAT EST ABG POC 100(H) 95 - 99 % [facility] SODIUM POC 132(L) 135 - 145 mmol/L [facility] PH ARTERIAL 7.34(L) 7.35 - 7.45 [facility] TCO2, ABG POC 25(H) 19 - 24 mmol/L [facility] COMMENT, GASES POC POST BYPASS [facility] PATIENT'S TEMPERATURE 37.0 Degree C [facility] POTASSIUM POC 4.6 3.5 - 4.9 mmol/L [facility] PCO2 ARTERIAL 44 35 - 48 mm Hg [facility] LACTIC ACID 2.2 0.5 - 2.2 mmol/L [facility] CALICUM IONIZED, WHOLE BLOOD 5.21(H) 4.76 - 5.16 mg/dL [facility] BASE EXCESS ABG -2.1(L) -2.0 - 3.0 mmol/L [facility] PO2 ARTERIAL 332(H) 83 - 108 mm Hg [facility] HCO3 ARTERIAL 24 22 - 26 mmol/L [facility] HEMATOCRIT POC 34.0(L) 40.0 - 48.0 % [facility] Blood specimen (specimen) 11/11/2007 4:17 PM CDT 11/11/2007 4:17 PM CDT us Jesusita Roland MD CHEMISTRY ORDERABLES Final R esult [facility] [address] [place] [address] * (ABNORMAL) POC RT, BLOOD GASES (11/11/2007 3:56 PM CDT) PATIENT'S TEMPERATURE 37.0 Degree C [facility] LACTIC ACID 2.5(H) 0.5 - 2.2 mmol/L [facility] CALICUM IONIZED, WHOLE BLOOD 4.49(L) 4.76 - 5.16 mg/dL [facility] PO2 ARTERIAL 178(H) 83 - 108 mm Hg [facility] SODIUM POC 132(L) 135 - 145 mmol/L [facility] PH ARTERIAL 7.37 7.35 - 7.45 [facility] BASE EXCESS ABG 0.5 -2.0 - 3.0 mmol/L [facility] HEMATOCRIT POC 29.0(L) 40.0 - 48.0 % [facility] GLUCOSE POC 188(H) 65 - 99 mg/dL [facility] O2 SAT EST ABG POC 100(H) 95 - 99 % [facility] POTASSIUM POC 5.4(H) 3.5 - 4.9 mmol/L [facility] TCO2, ABG POC 27(H) 19 - 24 mmol/L [facility] PCO2 ARTERIAL 45 35 - 48 mm Hg [facility] HCO3 ARTERIAL 26 22 - 26 mmol/L [facility] COMMENT, GASES POC ON BYPASS [facility] Blood specimen (specimen) 11/11/2007 3:56 PM CDT 11/11/2007 3:56 PM CDT us Jesusita Roland MD CHEMISTRY ORDERABLES Final R esult [facility] [address] [place] [address] * (ABNORMAL) POC RT, BLOOD GASES (11/11/2007 3:46 PM CDT) PATIENT'S TEMPERATURE 37.0 Degree C [facility] LACTIC ACID 2.4(H) 0.5 - 2.2 mmol/L [facility] CALICUM IONIZED, WHOLE BLOOD 4.57(L) 4.76 - 5.16 mg/dL [facility] PO2 ARTERIAL 315(H) 83 - 108 mm Hg [facility] SODIUM POC 129(L) 135 - 145 mmol/L [facility] PH ARTERIAL 7.30(L) 7.35 - 7.45 [facility] BASE EXCESS ABG -4.6(L) -2.0 - 3.0 mmol/L [facility] HEMATOCRIT POC 29.0(L) 40.0 - 48.0 % [facility] GLUCOSE POC 196(H) 65 - 99 mg/dL [facility] O2 SAT EST ABG POC 100(H) 95 - 99 % [facility] POTASSIUM POC 5.3(H) 3.5 - 4.9 mmol/L [facility] TCO2, ABG POC 23 19 - 24 mmol/L [facility] PCO2 ARTERIAL 44 35 - 48 mm Hg [facility] HCO3 ARTERIAL 22 22 - 26 mmol/L [facility] COMMENT, GASES POC ON BYPASS [facility] Blood specimen (specimen) 11/11/2007 3:46 PM CDT 11/11/2007 3:46 PM CDT us Jesusita Roland MD CHEMISTRY ORDERABLES Final R esult [facility] [address] [place] [address] * (ABNORMAL) POC RT, BLOOD GASES (11/11/2007 3:11 PM CDT) GLUCOSE POC 204(H) 65 - 99 mg/dL [facility] PCO2 ARTERIAL 39 35 - 48 mm Hg [facility] POTASSIUM POC 5.6(H) 3.5 - 4.9 mmol/L [facility] PCO2 TEMP CORRECT 35 mm Hg [facility] TCO2, ABG POC 24 19 - 24 mmol/L [facility] PATIENT'S TEMPERATURE 34.5 Degree C [facility] HCO3 ARTERIAL 23 22 - 26 mmol/L [facility] COMMENT, GASES POC ON BYPASS [facility] PO2 ARTERIAL 239(H) 83 - 108 mm Hg [facility] PO2 TEMP CORRECT 227 mm Hg [facility] LACTIC ACID 1.5 0.5 - 2.2 mmol/L [facility] CALICUM IONIZED, WHOLE BLOOD 4.45(L) 4.76 - 5.16 mg/dL [facility] PH ARTERIAL 7.38 7.35 - 7.45 [facility] PH TEMP CORRECT 7.42 [facility] SODIUM POC 129(L) 135 - 145 mmol/L [facility] O2 SAT EST ABG POC 100(H) 95 - 99 % [facility] HEMATOCRIT POC 32.0(L) 40.0 - 48.0 % [facility] BASE EXCESS ABG -1.8 -2.0 - 3.0 mmol/L [facility] Blood specimen (specimen) 11/11/2007 3:11 PM CDT 11/11/2007 3:11 PM CDT us Jesusita Roland MD CHEMISTRY ORDERABLES Final R esult [facility] [address] [place] [address] * (ABNORMAL) POC RT, BLOOD GASES (11/11/2007 2:45 PM CDT) O2 SAT EST ABG POC 100(H) 95 - 99 % [facility] BASE EXCESS ABG -0.6 -2.0 - 3.0 mmol/L [facility] GLUCOSE POC 169(H) 65 - 99 mg/dL [facility] HEMATOCRIT POC 30.0(L) 40.0 - 48.0 % [facility] PCO2 ARTERIAL 55(H) 35 - 48 mm Hg [facility] PCO2 TEMP CORRECT 49 mm Hg [facility] TCO2, ABG POC 28(H) 19 - 24 mmol/L [facility] POTASSIUM POC 5.5(H) 3.5 - 4.9 mmol/L [facility] PATIENT'S TEMPERATURE 34.5 Degree C [facility] COMMENT, GASES POC ON BYPASS [facility] HCO3 ARTERIAL 26 22 - 26 mmol/L [facility] PO2 ARTERIAL 261(H) 83 - 108 mm Hg [facility] CALICUM IONIZED, WHOLE BLOOD 4.53(L) 4.76 - 5.16 mg/dL [facility] PO2 TEMP CORRECT 249 mm Hg [facility] LACTIC ACID 1.2 0.5 - 2.2 mmol/L [facility] PH ARTERIAL 7.29(L) 7.35 - 7.45 [facility] PH TEMP CORRECT 7.32 [facility] SODIUM POC 128(L) 135 - 145 mmol/L [facility] Blood specimen (specimen) 11/11/2007 2:45 PM CDT 11/11/2007 2:45 PM CDT Jesusita Roland MD CHEMISTRY ORDERABLES Final R esult Performing Organization Address City/[facility]/ZIP Co de Phone Number [facility] [address] [place] [address] * MISCELLANEOUS CULTURE (11/11/2007 2:45 PM CDT) PRELIMINARY REPORT No growth 48 hours [facility] FINAL REPORT No growth 3 days [facility] 11/11/2007 2:45 PM CDT 11/11/2007 5:51 PM CDT Mary Arellano Jr., MD MICROBIOLOGY - GENERAL ORDERABLES Final Result Performing Organization Address [facility] Co de Phone Number [facility] [address] [facility] [place] [address] * PATHOLOGY (11/11/2007 2:39 PM CDT) FINAL REPORT [facility] [address] [place], [place] [address] Patient: PATRICIA DUNHAM : 1945 Procedure Date: 11/11/2007 Accession Date: 11/12/2007 Case No: [id number] Ordering Dr: MARY ARELLANO Case types AW, BW, FW, NW and SH are performed by [facility], [place], [place] SURGICAL PATHOLOGY & NON-GYNECOLOGIC CYTOPATHOLOGY REPORT [...] valve cusps. The tissue is severely calcified. Oyster Unloader sections are submitted in cassettes A1-2 for decalcification. Received in the second container, additionally labeled ascending aorta, is a 5.5-cm long by 4-cm diameter tubular piece of yellow-tatum fibromembranous tissue consistent with aorta. A dissecting aneurysm is not identified. The intimal surface is remarkable for a fatty streak. There is no evidence of calcification. Oyster Unloader sections are submitted in cassette B1. KLA/DRC 11.12.2007 12:50 pm Microscopic: The slides are labeled Patricia Aniketpineda and [id number]. The aortic valve tissue shows areas of [...] CDT) PCO2 TEMP CORRECT 34 mm Hg [facility] PATIENT'S TEMPERATURE 34.5 Degree C [facility] PO2 ARTERIAL 346(H) 83 - 108 mm Hg [facility] SODIUM POC 133(L) 135 - 145 mmol/L [facility] GLUCOSE POC 117(H) 65 - 99 mg/dL [facility] PH ARTERIAL 7.42 7.35 - 7.45 [facility] PO2 TEMP CORRECT 333 mm Hg [facility] TCO2, ABG POC 26(H) 19 - 24 mmol/L [facility] POTASSIUM POC 5.0(H) 3.5 - 4.9 mmol/L [facility] HEMATOCRIT POC 31.0(L) 40.0 - 48.0 % [facility] CALICUM IONIZED, WHOLE BLOOD 4.57(L) 4.76 - 5.16 mg/dL [facility] O2 SAT EST ABG POC 100(H) 95 - 99 % [facility] HCO3 ARTERIAL 25 22 - 26 mmol/L [facility] COMMENT, GASES POC ON BYPASS [facility] PCO2 ARTERIAL 38 35 - 48 mm Hg [facility] BASE EXCESS ABG 0.2 -2.0 - 3.0 mmol/L [facility] LACTIC ACID 1.5 0.5 - 2.2 mmol/L [facility] PH TEMP CORRECT 7.46 [facility] Blood specimen (specimen) 11/11/2007 2:14 PM CDT 11/11/2007 2:14 PM CDT us Jesusita Roland MD CHEMISTRY ORDERABLES Final R esult [facility] [address] [facility] [address] * (ABNORMAL) POC RT, BLOOD GASES (11/11/2007 2:07 PM CDT) PCO2 VENOUS 46 38 - 50 mm Hg [facility] PCO2 TEMP CORRECT 40 mm Hg [facility] TCO2, MVBG POC 27(H) 22 - 26 mmol/L [facility] POTASSIUM POC 5.4(H) 3.5 - 4.9 mmol/L [facility] PATIENT'S TEMPERATURE 34.0 Degree C [facility] COMMENT, GASES POC ON BYPASS [facility] HCO3 MIXED VENOUS 26 22 - 29 mmol/L [facility] PO2 MVBG 58(H) 25 - 40 mm Hg [facility] CALICUM IONIZED, WHOLE BLOOD 4.57(L) 4.76 - 5.16 mg/dL [facility] PO2 TEMP CORRECT 47 mm Hg [facility] LACTIC ACID 1.6 0.5 - 2.2 mmol/L [facility] PH MVBG 7.36 7.32 - 7.43 [facility] PH TEMP CORRECT 7.40 [facility] SODIUM POC 134(L) 135 - 145 mmol/L [facility] O2 SAT EST MVBG POC 89(H) 40 - 70 % [facility] BASE EXCESS VENOUS 0.3 -2.0 - 3.0 mmol/L [facility] GLUCOSE POC 110(H) 65 - 99 mg/dL [facility] HEMATOCRIT POC 30.0(L) 40.0 - 48.0 % [facility] Blood specimen (specimen) 11/11/2007 2:07 PM CDT 11/11/2007 2:07 PM CDT us Jesusita Roland MD CHEMISTRY ORDERABLES Final R esult [facility] [address] [place] [address] * (ABNORMAL) POC RT, BLOOD GASES (11/11/2007 1:50 PM CDT) PATIENT'S TEMPERATURE 37.0 Degree C [facility] GLUCOSE POC 116(H) 65 - 99 mg/dL [facility] CALICUM IONIZED, WHOLE BLOOD 4.53(L) 4.76 - 5.16 mg/dL [facility] PO2 ARTERIAL 476(H) 83 - 108 mm Hg [facility] TCO2, ABG POC 27(H) 19 - 24 mmol/L [facility] SODIUM POC 134(L) 135 - 145 mmol/L [facility] PH ARTERIAL 7.39 7.35 - 7.45 [facility] BASE EXCESS ABG 0.8 -2.0 - 3.0 mmol/L [facility] HEMATOCRIT POC 40.0 40.0 - 48.0 % [facility] O2 SAT EST ABG POC 100(H) 95 - 99 % [facility] POTASSIUM POC 4.2 3.5 - 4.9 mmol/L [facility] LACTIC ACID 1.3 0.5 - 2.2 mmol/L [facility] PCO2 ARTERIAL 43 35 - 48 mm Hg [facility] HCO3 ARTERIAL 26 22 - 26 mmol/L [facility] Blood specimen (specimen) 11/11/2007 1:50 PM CDT 11/11/2007 1:50 PM CDT us Jesusita Roland MD CHEMISTRY ORDERABLES Final R esult [facility] [address] [facility] [place] [address] * (ABNORMAL) POC RT, BLOOD GASES (11/11/2007 12:52 PM CDT) COMMENT, GASES POC POST INDUCTION [facility] HCO3 ARTERIAL 27(H) 22 - 26 mmol/L [facility] PATIENT'S TEMPERATURE 37.0 Degree C [facility] CALICUM IONIZED, WHOLE BLOOD 4.57(L) 4.76 - 5.16 mg/dL [facility] LACTIC ACID 0.9 0.5 - 2.2 mmol/L [facility] PO2 ARTERIAL 487(H) 83 - 108 mm Hg [facility] SODIUM POC 134(L) 135 - 145 mmol/L [facility] PH ARTERIAL 7.40 7.35 - 7.45 [facility] BASE EXCESS ABG 1.4 -2.0 - 3.0 mmol/L [facility] GLUCOSE POC 119(H) 65 - 99 mg/dL [facility] HEMATOCRIT POC 47.0 40.0 - 48.0 % [facility] O2 SAT EST ABG POC 100(H) 95 - 99 % [facility] TCO2, ABG POC 28(H) 19 - 24 mmol/L [facility] POTASSIUM POC 4.0 3.5 - 4.9 mmol/L [facility] PCO2 ARTERIAL 43 35 - 48 mm Hg [facility] Blood specimen (specimen) 11/11/2007 12:52 PM CDT 11/11/2007 12:52 PM CDT Jesusita Roland MD CHEMISTRY ORDERABLES Final R esult Performing Organization Address City/[facility]/ZIP Co de Phone Number [facility] [address] [place] [address] * (ABNORMAL) POC GLUCOSE (11/11/2007 7:03 AM CDT) GLUCOSE POC 116(H) 65 - 99 mg/dL [facility] Venous blood specimen (specimen) 11/11/2007 7:03 AM CDT 11/11/2007 7:03 AM CDT us Jesusita Roland MD POINT OF CARE TESTING Final Result [facility] [address] [place] [address] * (ABNORMAL) POC GLUCOSE (11/10/2007 8:15 PM CDT) GLUCOSE POC 131(H) 65 - 99 mg/dL [facility] Venous blood specimen (specimen) 11/10/2007 8:15 PM CDT 11/10/2007 8:15 PM CDT Jesusita Roland MD POINT OF CARE TESTING Final Result [facility] [address] [address] * (ABNORMAL) POC GLUCOSE (11/10/2007 5:28 PM CDT) GLUCOSE POC 100(H) 65 - 99 mg/dL [facility] Venous blood specimen (specimen) 11/10/2007 5:28 PM CDT 11/10/2007 5:28 PM CDT Jesusita Roland MD POINT OF CARE TESTING Final Result Performing Organization Address City/[facility]/ZIP Co de Phone Number [facility] [address] [address] * (ABNORMAL) POC GLUCOSE (11/10/2007 11:41 AM CDT) GLUCOSE POC 184(H) 65 - 99 mg/dL [facility] Venous blood specimen (specimen) 11/10/2007 11:41 AM CDT 11/10/2007 11:41 AM CDT us Jesusita Roland MD POINT OF CARE TESTING Final Result Performing Organization Address City/[facility]/ZIP Co de Phone Number [facility] [address] [address] * (ABNORMAL) POC GLUCOSE (11/10/2007 7:36 AM CDT) GLUCOSE POC 108(H) 65 - 99 mg/dL [facility] Venous blood specimen (specimen) 11/10/2007 7:36 AM CDT 11/10/2007 7:36 AM CDT us Jesusita Roland MD POINT OF CARE TESTING Final Result Performing Organization Address City/[facility]/ZIP Co de Phone Number [facility] [address] [place] [address] * (ABNORMAL) POC GLUCOSE (11/09/2007 8:15 PM CDT) GLUCOSE POC 170(H) 65 - 99 mg/dL [facility] Venous blood specimen (specimen) 11/09/2007 8:15 PM CDT 11/09/2007 8:15 PM CDT Jesusita Roland MD POINT OF CARE TESTING Final Result Performing Organization Address [facility] Co de Phone Number [facility] [address] [place] [address] * (ABNORMAL) POC GLUCOSE (11/09/2007 5:51 PM CDT) GLUCOSE POC 151(H) 65 - 99 mg/dL [facility] Venous blood specimen (specimen) 11/09/2007 5:51 PM CDT 11/09/2007 5:51 PM CDT us Jesusita Roland MD POINT OF CARE TESTING Final Result Performing Organization Address City/[facility]/ZIP Co de Phone Number [facility] [address] [place] [address] * (ABNORMAL) POC GLUCOSE (11/09/2007 11:34 AM CDT) GLUCOSE POC 146(H) 65 - 99 mg/dL [facility] Venous blood specimen (specimen) 11/09/2007 11:34 AM CDT 11/09/2007 11:34 AM CDT Jesusita Roland MD POINT OF CARE TESTING Final Result Performing Organization Address City/[facility]/ZIP Co de Phone Number [facility] [address] [place] [address] * (ABNORMAL) POC GLUCOSE (11/09/2007 8:35 AM CDT) GLUCOSE POC 111(H) 65 - 99 mg/dL [facility] Venous blood specimen (specimen) 11/09/2007 8:35 AM CDT 11/09/2007 8:35 AM CDT Jesusita Roland MD POINT OF CARE TESTING Final Result Performing Organization Address [facility] Co de Phone Number [facility] [address] [place] [address] * XR CHEST PA AND LATERAL (11/09/2007 7:32 AM CDT) Anatomical Region Laterality Modality Chest Other 11/09/2007 7:32 AM CDT Narrative 11/09/2007 10:56 AM CDT Ordered by SOFYA PRINCE [facility] [address] [place], [place] [address] Admit Date: 11/02/2007 PATRICIA DUNHAM Sex: M Admit Prov: JESUSITA ROLAND Date: 1945 Primary Care Prov: MERYL FRIEDMAN CMRN: [id number] Room: [address] [place] [address] SSN: [id number] IMAGING SERVICES Ordering Prov: N/A Accession Number: [id number] Interpretation Exam: Chest x-ray PA and lateral. [...] Rios - 11/09/2007 Ordered by SOFYA PRINCE [facility] [address] [place], [place] [address] Admit Date: 11/02/2007 PATRICIA DUNHAM Sex: M Admit Prov: JESUSITA ROLAND Date: 1945 Primary Care Prov: MERYL FRIEDMAN CMRN: [id number] Room: [address] [place] [address] SSN: [id number] IMAGING SERVICES Ordering Prov: N/A Interpretation Exam: [...] DIGOXIN LEVEL 0.7(L) 0.8 - 2.0 ng/mL [facility] Comment:Digoxin Toxic Level = >2.0 ng/mL Blood specimen (specimen) 11/09/2007 5:45 AM CDT 11/09/2007 6:23 AM CDT us Sofya HAMM CHEMISTRY ORDERABLES Final Res ult [facility] [address] [place] [address] * (ABNORMAL) COMPREHENSIVE METABOLIC PANEL (11/09/2007 5:45 AM CDT) CO2 25 22 - 30 mmol/L [facility] TOTAL PROTEIN 6.5 6.3 - 8.6 g/dL [facility] SODIUM 136 135 - 145 mmol/L [facility] POTASSIUM 3.9 3.5 - 4.9 mmol/L [facility] GLUCOSE 115(H) 65 - 99 mg/dL [facility] AST 28 12 - 38 U/L [facility] BUN 18 6 - 20 mg/dL [facility] CALCIUM 8.4 8.4 - 10.2 mg/dL [facility] ALBUMIN 3.6 3.4 - 4.8 g/dL [facility] CHLORIDE 102 96 - 108 mmol/L [facility] CREATININE 0.98 0.67 - 1.17 mg/dL [facility] ALT 35 0 - 41 U/L [facility] ALKALINE PHOSPHATASE 44 40 - 129 U/L [facility] BILIRUBIN TOTAL 0.6 0.2 - 1.0 mg/dL [facility] GFR, >60 >=60 mL/min/1. 7 sq meter [facility] GFR >60 >=60 mL/min/1. 7 sq meter [facility] Comment: Estimated GFR rate interpretative information for both Americans and non- Americans is available on the [facility] Intranet at: [email or web address] Select: Lab Policies and Procedures Select: Reference Ranges - GFR Blood specimen (specimen) 11/09/2007 5:45 AM CDT 11/09/2007 6:23 AM CDT Sofya HAMM CHEMISTRY ORDERABLES Edited [facility] [address] [facility] [address] [place] [address] * (ABNORMAL) CBC WITH DIFFERENTIAL (11/09/2007 5:45 AM CDT) WBC 9.8 4.0 - 9.8 K/uL [facility] MCH 32.9(H) 27.2 - 32.6 pg [facility] MPV 11.3 9.3 - 12.4 fL [facility] HEMATOCRIT 49.5(H) 40.0 - 48.0 % [facility] RDW-STDEV 47.2 37.1 - 48.7 fL [facility] RBC 5.02 4.50 - 5.40 M/uL [facility] MCHC 33.3 31.5 - 35.5 % [facility] MCV 98.6 82.0 - 99.0 fL [facility] PLATELETS 172 140 - 350 K/uL [facility] HEMOGLOBIN 16.5 13.6 - 16.5 g/dL [facility] RDW 13.1 11.5 - 14.5 % [facility] LYMPHOCYTE ABSOLUTE 1.84 0.70 - 4.50 K/uL [facility] BASOPHILS 0 0 - 2 % [facility] BASOPHILS ABSOLUTE 0.03 0.00 - 0.20 K/uL [facility] MONOCYTES 12 3 - 13 % [facility] MONOCYTE ABSOLUTE 1.17 0.10 - 1.30 K/uL [facility] NEUTROPHILS 67 45 - 70 % [facility] NEUTROPHIL ABSOLUTE 6.50 1.90 - 7.00 K/uL [facility] EOSINOPHILS 2 0 - 7 % [facility] EOSINOPHIL ABSOLUTE 0.21 0.00 - 0.70 K/uL [facility] LYMPHOCYTES 19 16 - 45 % [facility] Blood specimen (specimen) 11/09/2007 5:45 AM CDT 11/09/2007 6:23 AM CDT Sofya HAMM HEMATOLOGY ORDERABLES Edited INTERFACE SYSTEM Refer to clinic/hospital department [facility] [address] [place] [address] * (ABNORMAL) URINALYSIS (11/09/2007 4:10 AM CDT) LEUKOCYTE ESTERASE UA Negative Negative [facility] RBC UA 1 0 - 3 /HPF [facility] SPECIFIC GRAVITY UA 1.044(H) 1.001 - 1.035 [facility] Comment: Results confirmed by 2nd methodology. BLOOD UA Negative Negative [facility] GLUCOSE UA 3+(A) Negative [facility] Comment: Verified by repeat analysis. COLOR UA Yellow [facility] NITRITE UA Negative Negative [facility] UROBILINOGEN UA 4(H) <=1 mg/dL [facility] Comment: Verified by repeat analysis. EPITHELIAL CELLS, URINE 0-2 /HPF [facility] PH UA 6.0 5.0 - 8.0 [facility] KETONES UA 1+(A) Negative [facility] WBC UA 1 0 - 3 /HPF [facility] CLARITY UA Clear Clear [facility] PROTEIN UA Trace(A) Negative [facility] BILIRUBIN UA Negative Negative [facility] 11/09/2007 4:10 AM CDT 11/09/2007 4:36 AM CDT us James Hopkins MD URINE ORDERABLES Final Result Performing Organization Address [facility] Co de Phone Number [facility] [address] [place] [address] * URINALYSIS WITH REFLEX CULTURE (11/09/2007 4:10 AM CDT) URINE CULTURE ORDER Not indicated [facility] Comment: Criteria for a reflex culture [...] URINE ORDERABLES Final Result Performing Organization Address [facility] Co de Phone Number [facility] [address] [place] [address] * (ABNORMAL) POC GLUCOSE (11/08/2007 8:21 PM CDT) GLUCOSE POC 142(H) 65 - 99 mg/dL [facility] Venous blood specimen (specimen) 11/08/2007 8:21 PM CDT 11/08/2007 8:21 PM CDT Jesusita Roland MD POINT OF CARE TESTING Final Result Performing Organization Address [facility] Co de Phone Number [facility] [address] [place] [address] * (ABNORMAL) POC GLUCOSE (11/08/2007 4:56 PM CDT) GLUCOSE POC 100(H) 65 - 99 mg/dL [facility] Venous blood specimen (specimen) 11/08/2007 4:56 PM CDT 11/08/2007 4:56 PM CDT us Jesusita Roland MD POINT OF CARE TESTING Final Result Performing Organization Address City/[facility]/ZIP Co de Phone Number [facility] [address] [place] [address] * (ABNORMAL) POC GLUCOSE (11/08/2007 11:39 AM CDT) GLUCOSE POC 112(H) 65 - 99 mg/dL [facility] Venous blood specimen (specimen) 11/08/2007 11:39 AM CDT 11/08/2007 11:39 AM CDT us Jesusita Roland MD POINT OF CARE TESTING Final Result Performing Organization Address [facility]/ZIP Co de Phone Number [facility] [address] [place] [address] * POC GLUCOSE (11/08/2007 7:22 AM CDT) GLUCOSE POC 93 65 - 99 mg/dL [facility] Venous blood specimen (specimen) 11/08/2007 7:22 AM CDT 11/08/2007 7:22 AM CDT us Jesusita Roland MD POINT OF CARE TESTING Final Result Performing Organization Address City/[facility]/ZIP Co de Phone Number [facility] [address] [address] * (ABNORMAL) POC GLUCOSE (11/07/2007 8:42 PM CDT) COMMENT, GLU POC Notified RN [facility] GLUCOSE POC 149(H) 65 - 99 mg/dL [facility] Venous blood specimen (specimen) 11/07/2007 8:42 PM CDT 11/07/2007 8:42 PM CDT us Jesusita Roland MD POINT OF CARE TESTING Final Result Performing Organization Address City/[facility]/ZIP Co de Phone Number [facility] [address] [place] [address] * (ABNORMAL) POC GLUCOSE (11/07/2007 4:44 PM CDT) GLUCOSE POC 137(H) 65 - 99 mg/dL [facility] Venous blood specimen (specimen) 11/07/2007 4:44 PM CDT 11/07/2007 4:44 PM CDT us Jesusita Roland MD POINT OF CARE TESTING Final Result Performing Organization Address [facility] Co de Phone Number [facility] [address] [place] [address] * POC GLUCOSE (11/07/2007 11:38 AM CDT) GLUCOSE POC 84 65 - 99 mg/dL [facility] Venous blood specimen (specimen) 11/07/2007 11:38 AM CDT 11/07/2007 11:38 AM CDT us Jesusita Roland MD POINT OF CARE TESTING Final Result Performing Organization Address City/[facility] Co de Phone Number [facility] [address] [address] * DIGOXIN LEVEL (11/07/2007 9:18 AM CDT) DIGOXIN LEVEL 1.4 0.8 - 2.0 ng/mL [facility] Comment:Digoxin Toxic Level = >2.0 ng/mL Blood specimen (specimen) 11/07/2007 9:18 AM CDT 11/07/2007 9:36 AM CDT Domingo Teran MD CHEMISTRY ORDERABLES Final R esult Performing Organization Address City/[facility] Co de Phone Number [facility] [address] [place] [place] [address] * (ABNORMAL) PROTIME-INR (11/07/2007 9:18 AM CDT) PROTIME 15.4(H) 12.7 - 15.1 Seconds [facility] INR 1.2(H) 0.9 - 1.1 [facility] Comment: INR Therapeutic Range: Adult: 2.0 - 3.0 for pulmonary embolism or prophylaxis against venous thrombosis or systemic embolization. 2.0 - 3.0 for patients with tissue heart valves. 2.5 - 3.5 for patients with mechanical heart valves or post VT. Pediatric (12 years and under): 1.5 - [...] HEMATOLOGY ORDERABLES Final Result Performing Organization Address City/[facility]/ZIP Co de Phone Number [facility] [address] [place] [address] * (ABNORMAL) BASIC METABOLIC PANEL (11/07/2007 9:18 AM CDT) CREATININE 1.00 0.67 - 1.17 mg/dL [facility] POTASSIUM 4.1 3.5 - 4.9 mmol/L [facility] BUN 15 6 - 20 mg/dL [facility] CHLORIDE 102 96 - 108 mmol/L [facility] GLUCOSE 186(H) 65 - 99 mg/dL [facility] SODIUM 139 135 - 145 mmol/L [facility] CALCIUM 9.1 8.4 - 10.2 mg/dL [facility] CO2 27 22 - 30 mmol/L [facility] GFR, >60 >=60 mL/min/1. 7 sq meter [facility] GFR >60 >=60 mL/min/1. 7 sq meter [facility] Comment: Estimated GFR rate interpretative information for both Americans and non- Americans is available on the [facility] Intranet at: [email or web address] Select: Lab Policies and Procedures Select: Reference Ranges - GFR Blood specimen (specimen) 11/07/2007 9:18 AM CDT 11/07/2007 9:36 AM CDT Domingo Teran MD CHEMISTRY ORDERABLES Edited [facility] [address] [place] [address] * POC GLUCOSE (11/07/2007 7:22 AM CDT) GLUCOSE POC 87 65 - 99 mg/dL [facility] Venous blood specimen (specimen) 11/07/2007 7:22 AM CDT 11/07/2007 7:22 AM CDT Jesusita Roland MD POINT OF CARE TESTING Final Result Performing Organization Address City/[facility]/ZIP Co de Phone Number [facility] [address] [place] [address] * POC GLUCOSE (11/06/2007 8:53 PM CDT) GLUCOSE POC 93 65 - 99 mg/dL [facility] Venous blood specimen (specimen) 11/06/2007 8:53 PM CDT 11/06/2007 8:53 PM CDT Jesusita Roland MD POINT OF CARE TESTING Final Result [facility] [address] [place] [address] * POC GLUCOSE (11/06/2007 4:42 PM CDT) GLUCOSE POC 95 65 - 99 mg/dL [facility] Venous blood specimen (specimen) 11/06/2007 4:42 PM CDT 11/06/2007 4:42 PM CDT Jesusita Roland MD POINT OF CARE TESTING Final Result Performing Organization Address City/[facility]/ZIP Co de Phone Number [facility] [address] [place] [address] * POC GLUCOSE (11/06/2007 11:32 AM CDT) GLUCOSE POC 96 65 - 99 mg/dL [facility] Venous blood specimen (specimen) 11/06/2007 11:32 AM CDT 11/06/2007 11:32 AM CDT us Jesusita Roland MD POINT OF CARE TESTING Final Result Performing Organization Address City/[facility]/ZIP Co de Phone Number [facility] [address] [place] [address] * (ABNORMAL) POC GLUCOSE (11/06/2007 7:27 AM CDT) GLUCOSE POC 108(H) 65 - 99 mg/dL [facility] Venous blood specimen (specimen) 11/06/2007 7:27 AM CDT 11/06/2007 7:27 AM CDT Jesusita Roland MD POINT OF CARE TESTING Final Result Performing Organization Address City/[facility]/ZIP Co de Phone Number [facility] [address] [place] [address] * (ABNORMAL) POC GLUCOSE (11/05/2007 8:02 PM CDT) GLUCOSE POC 160(H) 65 - 99 mg/dL [facility] Venous blood specimen (specimen) 11/05/2007 8:02 PM CDT 11/05/2007 8:02 PM CDT Jesusita Roland MD POINT OF CARE TESTING Final Result Performing Organization Address City/[facility]/ZIP Co de Phone Number [facility] [address] [place] [place] [address] * POC GLUCOSE (11/05/2007 4:54 PM CDT) [facility] Signature GLUCOSE POC 91 65 - 99 mg/dL [facility] Venous blood specimen (specimen) 11/05/2007 4:54 PM CDT 11/05/2007 4:54 PM CDT Jesusita Roland MD POINT OF CARE TESTING Final Result Performing Organization Address City/[facility]/ZIP Co de Phone Number [facility] [address] [place] [address] * (ABNORMAL) HEMOGLOBIN A1C (11/05/2007 3:37 PM CDT) GLUCOSE, MEAN BLOOD 161 mg/dL [facility] HEMOGLOBIN A1C 6.7(H) 4.1 - 6.1 % of Hgb [facility] Blood specimen (specimen) 11/05/2007 3:37 PM CDT 11/05/2007 3:49 PM CDT Kandis Vásquez MD CHEMISTRY ORDERABLES Final Result Performing Organization Address [facility] Co de Phone Number [facility] [address] [place] [address] * (ABNORMAL) POC GLUCOSE (11/05/2007 11:30 AM CDT) GLUCOSE POC 62(L) 65 - 99 mg/dL [facility] Venous blood specimen (specimen) 11/05/2007 11:30 AM CDT 11/05/2007 11:30 AM CDT Jesusita Roland MD POINT OF CARE TESTING Final Result Performing Organization Address [facility] Co de Phone Number [facility] [address] [place] [address] * POC GLUCOSE (11/05/2007 7:41 AM CDT) GLUCOSE POC 88 65 - 99 mg/dL [facility] Venous blood specimen (specimen) 11/05/2007 7:41 AM CDT 11/05/2007 7:41 AM CDT Jesusita Roland MD POINT OF CARE TESTING Final Result Performing Organization Address City/[facility] Co de Phone Number [facility] [address] [place] [address] * (ABNORMAL) BASIC METABOLIC PANEL (11/05/2007 4:30 AM CDT) BUN 19 6 - 20 mg/dL [facility] CHLORIDE 101 96 - 108 mmol/L [facility] GLUCOSE 104(H) 65 - 99 mg/dL [facility] SODIUM 138 135 - 145 mmol/L [facility] CALCIUM 8.4 8.4 - 10.2 mg/dL [facility] CO2 26 22 - 30 mmol/L [facility] CREATININE 1.04 0.67 - 1.17 mg/dL [facility] POTASSIUM 4.0 3.5 - 4.9 mmol/L [facility] GFR, >60 >=60 mL/min/1. 7 sq meter [facility] GFR >60 >=60 mL/min/1. 7 sq meter [facility] Comment: Estimated GFR rate interpretative information for both Americans and non- Americans is available on the [facility] Intranet at: [email or web address] Select: Lab Policies and Procedures Select: Reference Ranges - GFR Blood specimen (specimen) 11/05/2007 4:30 AM CDT 11/05/2007 5:22 AM CDT us Jesusita Roland MD CHEMISTRY ORDERABLES Edited [facility] [address] [place] [address] * CLOSTRIDIUM DIFFICILE TOXIN (11/04/2007 11:20 PM [...] GLUCOSE POC 111(H) 65 - 99 mg/dL [facility] Venous blood specimen (specimen) 11/04/2007 8:02 PM CDT 11/04/2007 8:02 PM CDT Jesusita Roland MD POINT OF CARE TESTING Final Result Performing Organization Address City/[facility]/ZIP Co de Phone Number [facility] [address] [place] [address] * (ABNORMAL) POC GLUCOSE (11/04/2007 4:07 PM CDT) GLUCOSE POC 138(H) 65 - 99 mg/dL [facility] Venous blood specimen (specimen) 11/04/2007 4:07 PM CDT 11/04/2007 4:07 PM CDT Jesusita Roland MD POINT OF CARE TESTING Final Result Performing Organization Address [facility]/ZIP Co de Phone Number [facility] [address] [place] [address] * POC GLUCOSE (11/04/2007 11:35 AM CDT) GLUCOSE POC 92 65 - 99 mg/dL [facility] Venous blood specimen (specimen) 11/04/2007 11:35 AM CDT 11/04/2007 11:35 AM CDT Jesusita Roland MD POINT OF CARE TESTING Final Result Performing Organization Address City/[facility]/ZIP Co de Phone Number [facility] [address] [place] [address] * (ABNORMAL) POC GLUCOSE (11/04/2007 7:15 AM CDT) GLUCOSE POC 146(H) 65 - 99 mg/dL [facility] Venous blood specimen (specimen) 11/04/2007 7:15 AM CDT 11/04/2007 7:15 AM CDT us Jesusita Roland MD POINT OF CARE TESTING Final Result Performing Organization Address City/[facility]/ZIP Co de Phone Number [facility] [address] [place] [address] * (ABNORMAL) BASIC METABOLIC PANEL (11/04/2007 4:35 AM CDT) CO2 25 22 - 30 mmol/L [facility] CREATININE 1.04 0.67 - 1.17 mg/dL [facility] POTASSIUM 3.9 3.5 - 4.9 mmol/L [facility] BUN 20 6 - 20 mg/dL [facility] CHLORIDE 102 96 - 108 mmol/L [facility] GLUCOSE 90 65 - 99 mg/dL [facility] SODIUM 136 135 - 145 mmol/L [facility] CALCIUM 8.3(L) 8.4 - 10.2 mg/dL [facility] GFR, >60 >=60 mL/min/1. 7 sq meter [facility] GFR >60 >=60 mL/min/1. 7 sq meter [facility] Comment: Estimated GFR rate interpretative information for both Americans and non- Americans is available on the [facility] Intranet at: [email or web address] Select: Lab Policies and Procedures Select: Reference Ranges - GFR Blood specimen (specimen) 11/04/2007 4:35 AM CDT 11/04/2007 5:37 AM CDT us Jesusita Roland MD CHEMISTRY ORDERABLES Edited [facility] [address] [place] [id number] * (ABNORMAL) PROTIME-INR (11/04/2007 4:35 AM CDT) Pathologist [facility] INR 1.5(H) 0.9 - 1.1 [facility] Comment: INR Therapeutic Range: Adult: 2.0 - 3.0 for pulmonary embolism or prophylaxis against venous thrombosis or systemic embolization. 2.0 - 3.0 for patients with tissue heart valves. 2.5 - 3.5 for patients with mechanical heart valves or post VT. Pediatric (12 years and under): 1.5 - 3.0 Although the target range in children is not well established, INR values of 1.5 - 3.0 are recommended for most patients. Higher values have been used in children with prosthetic cardiac valves and hereditary clotting disorders. (<3 days) therapeutic ranges have not been established. PROTIME 18.1(H) 12.7 - 15.1 Seconds [facility] Blood specimen (specimen) 11/04/2007 4:35 AM CDT 11/04/2007 5:37 AM CDT us Jesusita Roland MD HEMATOLOGY ORDERABLES Final Result Performing Organization Address City/State/[facility] Co de Phone Number [facility] [address] [place] [address] * (ABNORMAL) CBC WITH DIFFERENTIAL (11/04/2007 4:35 AM CDT) [facility] HEMATOCRIT 45.9 40.0 - 48.0 % [facility] RDW-STDEV 51.2(H) 37.1 - 48.7 fL [facility] RBC 4.57 4.50 - 5.40 M/uL [facility] MCHC 32.7 31.5 - 35.5 % [facility] MCV 100.4(H) 82.0 - 99.0 fL [facility] PLATELETS 162 140 - 350 K/uL [facility] HEMOGLOBIN 15.0 13.6 - 16.5 g/dL [facility] RDW 14.1 11.5 - 14.5 % [facility] WBC 7.2 4.0 - 9.8 K/uL [facility] MCH 32.8(H) 27.2 - 32.6 pg [facility] MPV 11.4 9.3 - 12.4 fL [facility] BASOPHILS ABSOLUTE 0.07 0.00 - 0.20 K/uL [facility] MONOCYTES 16(H) 3 - 13 % [facility] MONOCYTE ABSOLUTE 1.15 0.10 - 1.30 K/uL [facility] NEUTROPHILS 64 45 - 70 % [facility] NEUTROPHIL ABSOLUTE 4.55 1.90 - 7.00 K/uL [facility] EOSINOPHILS 1 0 - 7 % [facility] EOSINOPHIL ABSOLUTE 0.07 0.00 - 0.70 K/uL [facility] LYMPHOCYTES 18 16 - 45 % [facility] LYMPHOCYTE ABSOLUTE 1.31 0.70 - 4.50 K/uL [facility] BASOPHILS 1 0 - 2 % [facility] Blood specimen (specimen) 11/04/2007 4:35 AM CDT 11/04/2007 5:37 AM CDT us Jesusita Roland MD HEMATOLOGY ORDERABLES Edited INTERFACE SYSTEM Refer to clinic/hospital department [facility] [address] [address] * SPUTUM CULTURE WITH GRAM STAIN (11/03/2007 10:27 PM CDT) GRAM STAIN Non diagnostic pattern Many WBC's seen INTERFACE SYSTEM FINAL REPORT Heavy growth normal upper respiratory leticia INTERFACE SYSTEM 11/03/2007 10:2 7 PM CDT 11/03/2007 11:00 PM CDT Kandis Vásquez MD MICROBIOLOGY - GENERAL ORD ERABLES Final Result Performing Organization Address City/[facility] Co de Phone Number INTERFACE SYSTEM Refer [...] is less sensitive for viral detection. Result [facility] Kandis Vásquez MD MICROBIOLOGY - GENERAL ORD ERABLES Final Result Performing Organization Address [facility] Co de Phone Number INTERFACE SYSTEM Refer to clinic/hospital department * POC GLUCOSE (11/03/2007 8:18 PM CDT) Pathologist [facility] GLUCOSE POC 98 65 - 99 mg/dL [facility] Venous blood specimen (specimen) 11/03/2007 8:18 PM CDT 11/03/2007 8:18 PM CDT Jesusita Roland MD POINT OF CARE TESTING Final Result Performing Organization Address City/[facility] Co de Phone Number [facility] [address] [place] [address] * ECHOCARDIOGRAM COMPLETE (11/03/2007 4:41 PM CDT) Narrative INTERFACE SYSTEM - 11/03/2007 4:41 PM CDT [place] [address] [place] [address] [email or web address] Transthoracic Echocardiogram Patient: Patricia Dunham Study ID: Adult Echo Gender: M : 1945 Age: 62 years Race: 1 Room: Bed: Height: 70 in ( 178 cm ) Study Date: November 03, 2007 Patient status: Inpatient Weight: 217.58 lb ( 98.9 kg ) Access. #: [id number] POC: Ordering: Milton Consulting: Grant Attending MD: [...] 16:24:28 Procedure Note Provider, Historical - 11/03/2007 [place] [address] [place] [place] [id number]: [email or web address] Transthoracic Echocardiogram Patient: Patricia Dunham Study ID: Adult Echo Gender: M : 1945 Age: 62 years Race: 1 Room: Bed: Height: 70 in ( 178 cm ) Study Date: November 03, 2007 Patient status: Inpatient Weight: 217.58 lb ( 98.9 kg ) Access. #: [id number] POC: Ordering: Milton Consulting: Grant Attending MD: [...] US ORDERABLES Final Result Performing Organization Address City/[facility] Co de Phone Number INTERFACE SYSTEM Refer to clinic/hospital department * (ABNORMAL) POC GLUCOSE (11/03/2007 4:33 PM CDT) GLUCOSE POC 149(H) 65 - 99 mg/dL [facility] Venous blood specimen (specimen) 11/03/2007 4:33 PM CDT 11/03/2007 4:33 PM CDT Jesusita Roland MD POINT OF CARE TESTING Final Result Performing Organization Address [facility] de Phone Number [facility] [address] [place] [address] * US DOPPLER ARTERIAL LEGS BILATERAL (11/03/2007 3:33 PM CDT) Anatomical Region Laterality Modality Lower Extremity Other Narrative 11/03/2007 3:33 PM CDT Please type in written order in [place] [address] [email or web address] [facility] Peripheral Venous Study Patient: Patricia Dunham Study ID: BLOOD FLOW STUDY Gender: M : 1945 Age: 62 years Race: 1 Room: Bed: Height: Study Date: November 03, 2007 Patient status: Inpatient Weight: Access. #: [id number] POC: Administrative Services Manager: Sandy Ordering: Milton Consulting: Grant Attending [...] in written order in Special Instructions field. [place] [address] [place] [address] [email or web address] Peripheral Venous Study Patient: Patricia Dunham Study ID: BLOOD FLOW STUDY Gender: M : 1945 Age: 62 years Race: 1 Room: Bed: Height: Study Date: November 03, 2007 Patient status: Inpatient Weight: Access. #: [id number] POC: Administrative Services Manager: Sandy Ordering: Milton Consulting: Grant Attending [...] (ABNORMAL) POC GLUCOSE (11/03/2007 11:36 AM CDT) [facility] GLUCOSE POC 136(H) 65 - 99 mg/dL [facility] Venous blood specimen (specimen) 11/03/2007 11:36 AM CDT 11/03/2007 11:36 AM CDT us Jesusita Roland MD POINT OF CARE TESTING Final Result Performing Organization Address City/[facility]/ZIP Co de Phone Number [facility] [address] [place] [address] * TROPONIN (W/REFLEX CKMB/CK) (11/03/2007 11:32 AM CDT) [facility] TROPONIN T <0.01 <=0.03 ng/mL [facility] TROPONIN T INTERP Negative [facility] Blood specimen (specimen) 11/03/2007 11:32 AM CDT 11/03/2007 11:35 AM CDT us Jesusita Roland MD CHEMISTRY ORDERABLES Edited Performing Organization Address City/[facility]/ZIP Co de Phone Number [facility] [address] [place] [address] * BLOOD CULTURE (11/03/2007 9:52 AM CDT) [facility] PRELIMINARY REPORT No growth to date. Culture in progress INTERFACE SYSTEM FINAL REPORT No growth 5 days INTERFACE SYSTEM Blood specimen (specimen) 11/03/2007 9:52 AM CDT 11/03/2007 12:07 PM CDT us Jesusita Roland MD MICROBIOLOGY - GENERAL ORDER JOSEPH Final Result Performing Organization Address City/[facility] de Phone Number INTERFACE SYSTEM [...] ORDER JOSEPH Final Result Performing Organization Address [facility] de Phone Number INTERFACE SYSTEM Refer to clinic/hospital department * (ABNORMAL) POC GLUCOSE (11/03/2007 7:07 AM CDT) GLUCOSE POC 129(H) 65 - 99 mg/dL [facility] Venous blood specimen (specimen) 11/03/2007 7:07 AM CDT 11/03/2007 7:07 AM CDT us Jesusita Roland MD POINT OF CARE TESTING Final Result Performing Organization Address [facility] de Phone Number [facility] [address] [place] [address] * (ABNORMAL) BASIC METABOLIC PANEL (11/03/2007 2:55 AM CDT) GLUCOSE 116(H) 65 - 99 mg/dL [facility] SODIUM 137 135 - 145 mmol/L [facility] CALCIUM 8.8 8.4 - 10.2 mg/dL [facility] CO2 27 22 - 30 mmol/L [facility] CREATININE 1.23(H) 0.67 - 1.17 mg/dL [facility] POTASSIUM 4.3 3.5 - 4.9 mmol/L [facility] BUN 17 6 - 20 mg/dL [facility] CHLORIDE 100 96 - 108 mmol/L [facility] GFR, >60 >=60 mL/min/1. 7 sq meter [facility] GFR 60 >=60 mL/min/1. 7 sq meter [facility] Comment: Estimated GFR rate interpretative information for both Americans and non- Americans is available on the [facility] Intranet at: [email or web address] Select: Lab Policies and Procedures Select: Reference Ranges - GFR Blood specimen (specimen) 11/03/2007 2:55 AM CDT 11/03/2007 2:56 AM CDT Jesusita Roland MD CHEMISTRY ORDERABLES Edited [facility] [address] [place] [address] * TROPONIN (W/REFLEX CKMB/CK) (11/03/2007 2:55 AM CDT) TROPONIN T <0.01 <=0.03 ng/mL [facility] TROPONIN T INTERP Negative [facility] Blood specimen (specimen) 11/03/2007 2:55 AM CDT 11/03/2007 2:56 AM CDT Jesusita Roland MD CHEMISTRY ORDERABLES Edited [facility] [address] [address] * (ABNORMAL) POC GLUCOSE (11/02/2007 8:25 PM CDT) GLUCOSE POC 103(H) 65 - 99 mg/dL [facility] Venous blood specimen (specimen) 11/02/2007 8:25 PM CDT 11/02/2007 8:25 PM CDT us Jesusita Roland MD POINT OF CARE TESTING Final Result [facility] [address] [place] [address] * XR CHEST PA AND LATERAL (11/02/2007 7:43 PM CDT) Anatomical Region Laterality Modality Chest Other 11/02/2007 7:43 PM CDT Narrative 11/03/2007 9:04 AM CDT [facility] [address] [place], [place] [address] Admit Date: 11/02/2007 PATRICIA DUNHAM Sex: M Admit Prov: BERTHAJESUSITA LOPEZ Date: 1945 Primary Care Prov: CARMINEBeeMERYL CMRN: [id number] Room: [address] [place] [address] SSN: [id number] IMAGING SERVICES Ordering Prov: N/A Accession Number: [id number] Interpretation CHEST 2 VIEWS 11/02/2007 History: Congestive [...] AMK Procedure Note Provider, Historical - 11/03/2007 [facility] [address] [place], [place] [address] Admit Date: 11/02/2007 PATRICIA DUNHAM Sex: M Admit Prov: JESUSITA ROLAND Date: 1945 Primary Care Prov: MERYL FRIEDMAN CMRN: [id number] Room: [address] [place] [address] SSN: [id number] IMAGING SERVICES Ordering Prov: N/A Interpretation CHEST [...] PM CDT) TROPONIN T <0.01 <=0.03 ng/mL [facility] TROPONIN T INTERP Negative [facility] Blood specimen (specimen) 11/02/2007 7:05 PM CDT 11/02/2007 7:13 PM CDT us Jesusita Roland MD CHEMISTRY ORDERABLES Edited [facility] [address] [facility] [address] * TSH (11/02/2007 7:05 PM CDT) TSH 1.59 0.27 - 4.20 uU/mL [facility] Blood specimen (specimen) 11/02/2007 7:05 PM CDT 11/02/2007 7:13 PM CDT Jesusita Roland MD CHEMISTRY ORDERABLES Final R esult Performing Organization Address [facility] Co de Phone Number [facility] [address] [place] [address] * (ABNORMAL) HEPATIC FUNCTION PANEL (11/02/2007 7:05 PM CDT) BILIRUBIN TOTAL 1.0 0.2 - 1.0 mg/dL [facility] ALT 72(H) 0 - 41 U/L [facility] ALKALINE PHOSPHATASE 58 40 - 129 U/L [facility] TOTAL PROTEIN 7.0 6.3 - 8.6 g/dL [facility] BILIRUBIN DIRECT 0.4(H) 0.0 - 0.3 mg/dL [facility] AST 38 12 - 38 U/L [facility] ALBUMIN 4.2 3.4 - 4.8 g/dL [facility] Blood specimen (specimen) 11/02/2007 7:05 PM CDT 11/02/2007 7:13 PM CDT Jesusita Roland MD CHEMISTRY ORDERABLES Final R esult Performing Organization Address [facility] Co de Phone Number [facility] [address] [place] [address] * (ABNORMAL) PROTIME-INR (11/02/2007 7:05 PM CDT) INR 1.3(H) 0.9 - 1.1 [facility] Comment: INR Therapeutic Range: Adult: 2.0 - 3.0 for pulmonary embolism or prophylaxis against venous thrombosis or systemic embolization. 2.0 - 3.0 for patients with tissue heart valves. 2.5 - 3.5 for patients with mechanical heart valves or post VT. Pediatric (12 years and under): 1.5 - 3.0 Although the target range in children is not well established, INR values of 1.5 - 3.0 are recommended for most patients. Higher values have been used in children with prosthetic cardiac valves and hereditary clotting disorders. (<3 days) therapeutic ranges have not been established. PROTIME 16.2(H) 12.7 - 15.1 Seconds [facility] Blood specimen (specimen) 11/02/2007 7:05 PM CDT 11/02/2007 7:13 PM CDT us Jesusita Roland MD HEMATOLOGY ORDERABLES Final Result [facility] [address] [address] * (ABNORMAL) CBC WITH DIFFERENTIAL (11/02/2007 7:05 PM CDT) MCV 101.4(H) 82.0 - 99.0 fL [facility] PLATELETS 169 140 - 350 K/uL [facility] HEMOGLOBIN 16.6(H) 13.6 - 16.5 g/dL [facility] RDW 14.1 11.5 - 14.5 % [facility] WBC 9.3 4.0 - 9.8 K/uL [facility] MCH 33.3(H) 27.2 - 32.6 pg [facility] MPV 11.7 9.3 - 12.4 fL [facility] HEMATOCRIT 50.6(H) 40.0 - 48.0 % [facility] RDW-STDEV 52.0(H) 37.1 - 48.7 fL [facility] RBC 4.99 4.50 - 5.40 M/uL [facility] MCHC 32.8 31.5 - 35.5 % [facility] EOSINOPHILS 0 0 - 7 % [facility] EOSINOPHIL ABSOLUTE 0.02 0.00 - 0.70 K/uL [facility] LYMPHOCYTES 13(L) 16 - 45 % [facility] LYMPHOCYTE ABSOLUTE 1.18 0.70 - 4.50 K/uL [facility] BASOPHILS 1 0 - 2 % [facility] BASOPHILS ABSOLUTE 0.05 0.00 - 0.20 K/uL [facility] MONOCYTES 15(H) 3 - 13 % [facility] MONOCYTE ABSOLUTE 1.43(H) 0.10 - 1.30 K/uL [facility] NEUTROPHILS 71(H) 45 - 70 % [facility] NEUTROPHIL ABSOLUTE 6.66 1.90 - 7.00 K/uL [facility] Blood specimen (specimen) 11/02/2007 7:05 PM CDT 11/02/2007 7:13 PM CDT us Jesusita Roland MD HEMATOLOGY ORDERABLES Edited INTERFACE SYSTEM Refer to clinic/hospital department [facility] [address] [place] [address] * BASIC METABOLIC PANEL (11/02/2007 7:05 PM CDT) BUN 15 6 - 20 mg/dL [facility] CHLORIDE 102 96 - 108 mmol/L [facility] GLUCOSE 92 65 - 99 mg/dL [facility] SODIUM 138 135 - 145 mmol/L [facility] CALCIUM 9.2 8.4 - 10.2 mg/dL [facility] CO2 25 22 - 30 mmol/L [facility] CREATININE 1.10 0.67 - 1.17 mg/dL [facility] POTASSIUM 4.5 3.5 - 4.9 mmol/L [facility] GFR, >60 >=60 mL/min/1.7 sq meter [facility] GFR >60 >=60 mL/min/1.7 sq meter [facility] Comment: Estimated GFR rate interpretative information for both Americans and non- Americans is available on the [facility] Intranet at: [email or web address] Select: Lab Policies and Procedures Select: Reference Ranges - GFR Blood specimen (specimen) 11/02/2007 7:05 PM CDT 11/02/2007 7:13 PM CDT Jesusita Roland MD CHEMISTRY ORDERABLES Edited Performing Organization Address City/[facility]/ZIP Co de Phone Number [facility] [address] [place] [address] * LIPID PANEL (11/02/2007 7:05 PM CDT) CHOL/HDL RATIO 2.8 2.0 - 5.0 [facility] TRIGLYCERIDE 59 10 - 149 mg/dL [facility] HDL 40 40 - 59 mg/dL [facility] CHOLESTEROL 110 100 - 199 mg/dL [facility] LDL CALCULATED 58 <=99 mg/dL [facility] LIPID PANEL COMMENT See Below [facility] Comment: The adult ATP and pediatric NCEP classifications for lipids are available on the [facility] Intranet at: [email or web address] Select: Lab Policies and Procedures,Current Select: Lipid Panel Interpretation Blood specimen (specimen) 11/02/2007 7:05 PM CDT 11/02/2007 7:13 PM CDT us Jesusita Roland MD CHEMISTRY ORDERABLES Edited [facility] [address] [place] [address] documented in this encounter Visit Diagnoses Diagnosis Congestive heart failure, unspecified (CMS/HCC) Congestive heart failure, unspecified documented in this encounter Care Teams Qualitative Field Project Manager Relationship Specialty Start Date End Date Meryl Friedman MD PCP - General 12/10/07 documented as of this encounter
--- OUTSIDE RECORDS SUMMARY | 2025-03-11 11:37 | XMS_ITS | Encounter Summary ---
Author Organization [facility] Healthcare Address [address] [place] [address] Care Team Providers Care Mulcher Operator Name Role Phone Dimitry Kamara MD Primary Care Provider [phone] Jesusita Han MD Unavailable [phone] Encounter Details Date Type Department Care Team (Late st Contact Info) Description 03/22/2024 Orders Only [facility] Health Information Management [address] [place] [address] Scanning, Provider Social History Tobacco Use Types Packs/Day Years Used Date Smoking Tobacco: Every Day Smokeless Tobacco: Never Comments:Smoking History Pac ks/day: 1 Packs Alcohol Use Standard Drinks/Week Comments No 0 (1 standard drink = 0.6 oz pur e alcohol) Sex and Gender Information Value Date Recorded Sex Assigned at Not on file 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
--- OUTSIDE RECORDS SUMMARY | 2025-03-11 11:37 | XMS_ITS | Encounter Summary ---
Author Organization [employer] Address 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 Gender Identity Not on file Sexual Orientation Not on file documented as of this encounter Plan of Treatment Not on file documented as of this encounter Procedures Procedure Name Priority Date/Time Associated Diagnosis Comments PROTIME-INR Routine 12/15/2007 10:33 AM CDT documented in this encounter Results * (ABNORMAL) PROTIME-INR (12/15/2007 10:33 AM CDT) PROTIME 23.3(H) 12.7 - 15.1 Seconds [facility] INR 2.1(H) 0.9 - 1.1 [facility] Comment: INR Therapeutic Range: Adult: 2.0 - 3.0 for pulmonary embolism or prophylaxis against venous thrombosis or systemic embolization. 2.0 - 3.0 for patients with tissue heart valves. 2.5 - 3.5 for patients with mechanical heart valves or post NC. Pediatric (12 years and under): 1.5 - [...] Jr., MD HEMATOLOGY ORDERABLES F inal Result [facility] CLIA# [id number] [address] [place] [address] documented in this encounter Visit Diagnoses Diagnosis Atrial fibrillation (CMS/HCC) Atrial fibrillation documented in this encounter Care Teams Youth Manager Relationship Specialty Start Date End Date Dimitry Kamara MD PCP - General 12/10/07 documented as of this encounter
--- OUTSIDE RECORDS SUMMARY | 2025-03-11 11:37 | XMS_ITS | Clinical Summary ---
Author Organization [facility] [email or web address] Address [address] [place] [address] Care Team Providers Care Home Health Care Case Manager Name Role Phone Dimitry Kamara MD Primary Care Provider [phone] Source Comments [facility] [email or web address],non-owned Affiliates and Associated Physician Practices is amultiple site organization consisting of ambulatory clinics and hospital sitesin [place], [place] and [place]. This disclosure is being madepursuant to the Care Everywhere program and may not contain all information available regarding this patient. Last updated 18.[facility] [email or web address] Allergies No known active allergies Medications * [...] (one) tablet by mouth at bedtime Active [place]-3 Fatty Acids (fish oil) 500 MG capsule [...] Recorded Patient Health Questionnaire-2 Score 0 03/31/2024 [place] Citizen [place] of Occupat ional Health - Occupational Stress [...] - 26 mg/dL 04/01/2024 4:[address] [facility] Creatinine 0.69(L) 0.71 - 1.16 mg/dL 04/01/2024 4:07 AM [facility] Sodium 139 136 - 145 mmol/L 04/01/2024 4:07 AM [facility] Potassium 3.7 3.5 - 4.5 mmol/L 04/01/2024 4:07 AM [facility] Chloride 110(H) 98 - 107 mmol/L 04/01/2024 4:07 AM [facility] CO2 25 22 - 29 mmol/L 04/01/2024 4:07 AM [facility] Glucose 137(H) 70 - 115 mg/dL 04/01/2024 4:07 AM [facility] Calcium 8.6 8.4 - 10.2 mg/dL 04/01/2024 4:07 AM [facility] Protein Total 5.6(L) 6.0 - 8.3 g/dL 04/01/2024 4:07 AM [facility] Albumin 2.8(L) 3.4 - 5.0 g/dL 04/01/2024 4:07 AM [facility] Bilirubin Total 1.3(H) 0.2 - 1.2 mg/dL 04/01/2024 4:07 AM [facility] Alkaline Phosphatase 66 40 - 150 U/L 04/01/2024 4:07 AM [facility] ALT 28 5 - 55 U/L 04/01/2024 4:07 AM [facility] AST 23 5 - 34 U/L 04/01/2024 4:07 AM [facility] Anion Gap 4(L) 6 - 16 04/01/2024 4:07 AM [facility] BUN/Creatinine Ratio 20 7 - 23 04/01/2024 4:07 AM [facility] Osmolality Calculated 291 275 - 295 mOsm/kg 04/01/2024 4:07 AM [facility] Albumin/Globulin Ratio 1.0(L) 1.1 - 2.3 04/01/2024 4:07 AM [facility] eGFR by CKD-EPI >90 >=90 mL/min/1.7 3 m2 04/01/2024 4:07 AM [facility] Blood BLOOD SPECIMEN / Unknown Lab Venipuncture / Unknown 04/01/2024 3:04 AM CDT 04/01/2024 3:37 AM CDT Malachi Wayne MD LAB - CHEMISTRY ORDERABLES F inal Result Performing Organization Address [facility] Co de Phone Number [address] [address], [facility] [phone] * HEMOGLOBIN A1C (03/30/2024 7:56 AM CDT) Hemoglobin A1c 5.6 <=5.6 % 03/30/2024 9:41 AM [facility] Estimated Average Glucose 114 mg/dL 03/30/2024 9:41 AM [facility] Comment: HbA1c Interpretation: Normal : < 5.7% Pre-diabetes: 5.7-6.4% Diabetes: Equal to or greater than 6.5% Test results diagnostic of diabetes should be repeated for confirmation. Treatment target values recommended by ADA and other clinical organizations should be used to evaluate metabolic control in patients. Reference: [place] Diabetes Association, Standards of Care in Diabetes [...] ORDERABLES F inal Result Performing Organization Address City/[facility]/ZIP Co de Phone Number [address] [address], [facility] [phone] from Last 3 Months or Most Recently Relevant to Health Maintenance Insurance [facility] MANAGED MEDICARE ADV Advance Directives * Full Code (Latest Code Status on File) Date Activated Date Inactivated Comments 03/25/2024 8:09 PM 04/01/2024 1:28 PM Care Teams Home Health Care Case Manager Relationship Specialty Start Date End Date Dimitry Kamara MD [address] [facility] [address] [facility] [address] [place] [address] PCP - General Internal Medicine 04/13/24
--- OUTSIDE RECORDS SUMMARY | 2025-03-11 11:37 | XMS_ITS | Clinical Summary ---
Author Organization [facility] Address [address] [place] 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
--- OUTSIDE RECORDS SUMMARY | 2025-03-11 11:37 | XMS_ITS | Clinical Summary ---
Author Organization [facility] Address [address] [place] [address] Care Team Providers Care Ccie Name Role Phone Dimitry Kamara MD Primary Care Provider [phone] Jesusita Han MD Unavailable [phone] Allergies No known active allergies Medications insulin [...] by mouth daily Active cholecalciferol (VITAMIN D-3) 38687 unit capsule Take 1 capsule (10,000 Units [...] Department Care Team Description 01/30/2025 Orders Only [facility] Medical [facility] Cardiology [address] [place] [address] Mishel Leal NP 12/26/2024 Telephone [facility] Cardiology [address] [place] [address] Chase Rivas MD from Last 3 Months [...] on file 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 Gender Identity Not on file Sexual Orientation Not on file Obstetrics History Last Filed Vital Signs Vital Sign Reading Time Taken Comments Blood Pressure 102/58 09/01/2024 2:37 PM LIGHT RAIL TRANSIT OPERATOR Pulse 55 09/01/2024 2:37 PM LIGHT RAIL TRANSIT OPERATOR Temperature - - Respiratory Rate - - Oxygen Saturation 91% 09/01/2024 2:37 PM LIGHT RAIL TRANSIT OPERATOR Inhaled Oxygen Concentration - - Weight 67.1 kg (148 lb) 09/01/2024 2:37 PM LIGHT RAIL TRANSIT OPERATOR Height 172.7 cm (5' 8) 09/01/2024 2:37 PM LIGHT RAIL TRANSIT OPERATOR Body Mass Index 22.5 09/01/2024 2:37 PM LIGHT RAIL TRANSIT OPERATOR Plan of Treatment Health Maintenance Due Date [...] Final Result from Last 3 Months Insurance [facility] MEDICARE ADVANTAGE [facility] MEDICARE ADVANTAGE Care Teams Ccie Relationship Specialty Start Date End Date Dimitry Kamara MD [address] [place] [address] PCP - General 10/24/16 Jesusita Han MD [address] [place] [address] [employer] Salesperson Cardiology 10/16/20
[2025-03-11 12:04] LABS: Hematocrit 33.7 % (42.0-52.0); Hemoglobin 10.4 g/dL (14.0-18.0); Immature Granulocyte Percent A 0.4 % (0-0.5); Lymphocytes Absolute Auto 1.24 K/mm3 (0.9-3.2); Mean Corpuscular HGB Conc 30.9 g/dl (32-36); Mean Corpuscular Hemoglobin 31.5 pg (26-34); Mean Corpuscular Volume 102.1 fl (80-100); Nucleated Red Blood Cells Absolute Auto 0.000 K/mm3 (0.0-0.012); Nucleated Red Blood Cells Perc 0.0 % (0.0-0.2); Platelet Count Result 208 k/mm3 (150-375); Red Blood Count 3.30 M/mm3 (4.6-6.20); White Blood Count 9.4 K/mm3 (4.5-10.0)
[2025-03-11 12:28] LABS: Alanine Aminotransferase 16 U/L (6-50); Albumin Level 2.9 g/dL (3.5-5.1); Alkaline Phosphatase 110 U/L (38-126); Anion Gap 4 mmol/L (4-12); Aspartate Amino Transferase 27 U/L (17-59); Bilirubin,Total 0.6 mg/dL (0.2-1.3); Blood Urea Nitrogen 14 mg/dL (9-20); Calcium 8.6 mg/dL (8.4-10.2); Carbon Dioxide 29 mmol/L (22-30); Chloride 101 mmol/L (98-107); Cholesterol 123 mg/dL (0-200); Estimated Glomerular Filt Rate > 60; Glucose 341 mg/dL (65-110); HDL Direct 34 mg/dL; Potassium 4.2 mmol/L (3.4-5.0); Sodium 134 mmol/L (137-145); Total Protein 6.6 g/dL (6.3-8.2); Triglycerides 106 mg/dL (<150)
[2025-03-11 12:33] LABS: Hemoglobin A1C 7.1 % (<5.7)
[2025-03-11 12:44] LABS: Free T4 Free Thyroxine 1.03 ng/dL (0.78-2.19)
[2025-03-11 13:04] LABS: Thyroid Stimulating Hormone 1.250 uIU/mL (0.465-4.680)
== END 2025-03-11 11:28 | disposition home or self-care (01) ==
LOC: ANHLAB 11:32
PROVIDERS: PCP Internal Medicine; Visit Provider Internal Medicine
DX: E11.9 Type 2 diabetes mellitus without complications (principal); Z79.4 Long term (current) use of insulin; Z79.899 Other long term (current) drug therapy; Z13.29 Encounter for screening for other suspected endocrine disorder; I10 Essential (primary) hypertension; E78.2 Mixed hyperlipidemia
CPT/HCPCS: 36415; 80053; 80061; 83036; 84439; 84443; 85025

== ENCOUNTER 2025-06-14 11:19 | Emergency (ER) | payer MEDICARE, SELFPAY ==
--- NOTE | ~2025-06-14 | US_ITS ---
EXAMINATION: High resolution ultrasound scrotum with Doppler: DATE: 06/14/2025 INDICATION: 79-year-old male with inguinal pain and swelling. No history of trauma. TECHNIQUE: High resolution ultrasound scrotum with color Doppler study. were obtained. COMPARISON: CT abdomen pelvis dated 03/10/2025 FINDINGS: No intratesticular lesions are seen on either side. Symmetric color perfusion within the testes are noted on both sides. Epididymis are normal in size.. Bilateral varicocele are noted along with minimal hydrocele. Left inguinal hernia is noted containing omental fat and bowel loops. IMPRESSION: 1. Perfusion of both testes are noted. 2. Bilateral varicocele. Minimal bilateral hydrocele. 3. Left inguinal hernia containing bowel loops and omental fat. Reviewed, dictated and finalized at location T. [facility]
[2025-06-14 11:18] VITALS: BP 136/55; PULSE 66; RESP 19; TEMP 36.4; O2SAT 97
[2025-06-14 11:41] LABS: Hematocrit 40.3 % (42.0-52.0); Hemoglobin 12.8 g/dL (14.0-18.0); Immature Granulocyte Percent A 0.3 % (0-0.5); Lymphocytes Absolute Auto 2.89 K/mm3 (0.9-3.2); Mean Corpuscular HGB Conc 31.8 g/dl (32-36); Mean Corpuscular Hemoglobin 31.7 pg (26-34); Mean Corpuscular Volume 99.8 fl (80-100); Nucleated Red Blood Cells Absolute Auto 0.000 K/mm3 (0.0-0.012); Nucleated Red Blood Cells Perc 0.0 % (0.0-0.2); Platelet Count Result 154 k/mm3 (150-375); Red Blood Count 4.04 M/mm3 (4.6-6.20); White Blood Count 10.1 K/mm3 (4.5-10.0)
[2025-06-14 11:48] LABS: Alanine Aminotransferase 17 U/L (6-50); Albumin Level 3.9 g/dL (3.5-5.1); Alkaline Phosphatase 90 U/L (38-126); Anion Gap 8 mmol/L (4-12); Aspartate Amino Transferase 29 U/L (17-59); Bilirubin,Total 0.5 mg/dL (0.2-1.3); Blood Urea Nitrogen 17 mg/dL (9-20); Calcium 9.1 mg/dL (8.4-10.2); Carbon Dioxide 31 mmol/L (22-30); Chloride 97 mmol/L (98-107); Estimated CRCL calculation 50 ml/min; Estimated Glomerular Filt Rate > 60; Glucose 248 mg/dL (65-110); Potassium 3.7 mmol/L (3.4-5.0); Sodium 136 mmol/L (137-145); Total Protein 7.5 g/dL (6.3-8.2)
--- NOTE | 2025-06-14 12:49 | ED.MALEGU ---
HPI - Male Genitourinary General Chief complaint: Urogenital-Male Stated complaint: large testicles Time Seen by Provider: 06/14/25 12:11 History of Present Illness HPI Narrative: Pt sent in from local NH due to more scrotal swelling than usual. Pt has no specific complaints and is poor historian. Related Data Home Medications ?Medication ?Instructions ?Recorded ?Confirmed ?Last Taken ?Type mecobalamin (vitamin B12) 1,000 1,000 mcg PO DAILY 04/22/24 02/12/25 02/12/25 History mcg chewable tablet Allergies Allergy/AdvReac Type Severity Reaction Status Date / Time No Known Allergies Allergy Verified 10/13/24 14:03 Review of Systems Review of Systems: ROS unobtainable: Yes unobtainable due to mental status PMFSH Past Medical History Medical History Encounter for routine adult health examination with abnormal findings Hospital discharge follow-up CVA (cerebral vascular accident) (~03/2024) 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 Right kidney stone Hx of colonic polyps Tobacco abuse Elevated homocysteine COPD (chronic obstructive pulmonary disease) Vitamin D deficiency Hearing loss ASHD (arteriosclerotic heart disease) A-fib Hyperlipidemia Benign essential hypertension Diabetes mellitus type 2, insulin dependent Surgical History Surgical History H/O aortic valve replacement Family History Family History Father Family history of malignant neoplasm Other Family history of cardiovascular disease Family history of pancreatic cancer Social History Social History Social History: Code status: Full code (per EMR) Surrogate decision maker: Russell (son) Smoking packs per day: 1 Smoking cigarettes per day: 20.0 Years smoked: 60 Smoking pack-years: 60.00 Smoking status: Current every day smoker Tobacco type: cigarettes Second hand tobacco smoke exposure: No Alcohol intake: never Substance use: never Substance use type: does not use Do You Feel Safe in your Home?: Yes Lack of Transportation: No Lack of Food: Never True Current Housing: I Have Housing Concerned About Future Housing: No Difficulty Paying Gas/Electric Bills: No Difficulty Paying for Meds: No Currently Unemployed: No Education: High School Diploma/GED Difficulty w/ Childcare or Family Care: No Living arrangements: with family Additional living arrangements comments: The patient's grandson lives with him. Patient raised 2 sons. 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 Gender identity (if verbalized by the patient): Male Spiritual care concerns: No Course Vital Signs Vital signs: Vital Signs Temperature 97.5 F L 06/14/25 11:18 Pulse Rate 66 06/14/25 11:18 Respiratory Rate 19 06/14/25 11:18 Blood Pressure 136/55 L 06/14/25 11:18 Pulse Oximetry 97 06/14/25 11:18 Oxygen Delivery Room Air 06/14/25 11:18 Temperature 97.5 F L 06/14/25 11:18 Pulse Rate 73 06/14/25 18:22 Respiratory Rate 16 06/14/25 18:22 Blood Pressure 152/80 H 06/14/25 18:22 Pulse Oximetry 97 06/14/25 18:22 Oxygen Delivery Room Air 06/14/25 11:18 MDM - Male Genitourinary MDM Narrative Medical decision making narrative: Pt has good flow top testes on sono. has inguinal hernia but non tender. Pt has UTI will treat. Differential Diagnosis Differential diagnosis: Likely urinary tract infection, epididymitis and inguinal hernia Lab Data Attestation: I reviewed the patient's lab results. 06/14/25 11:27 06/14/25 11:27 Labs: Lab Results 06/14/25 06/14/25 Range/Units 11:27 14:20 WBC 10.1 H (4.5-10.0) K/mm3 RBC 4.04 L (4.6-6.20) M/mm3 Hgb 12.8 L (14.0-18.0) g/dL Hct 40.3 L (42.0-52.0) % MCV 99.8 (80-100) fl MCH 31.7 (26-34) pg MCHC 31.8 L (32-36) g/dl RDW 14.1 (11.5-14.5) % Plt Count 154 (150-375) k/mm3 MPV 10.3 (7.4-10.4) fl Immature Gran % (Auto) 0.3 (0-0.5) % Neut % (Auto) 58.6 (45.5-73.1) % Lymph % (Auto) 28.6 (18.3-44.2) % [place] % (Auto) 8.4 (2.6-8.5) % Eos % (Auto) 3.4 (0-4.4) % Baso % (Auto) 0.7 (0.2-1.2) % Lymph # (Auto) 2.89 (0.9-3.2) K/mm3 [place] # (Auto) 0.9 H (0.1-0.6) K/mm3 Eos # (Auto) 0.3 (0-0.3) K/mm3 Baso # (Auto) 0.1 (0.0-0.1) K/mm3 Abs Immat Gran (auto) 0.03 (0.00-0.031) K/mm3 Absolute Neuts (auto) 5.9 (1.3-6.7) K/mm3 Absolute Nucleated RBC 0.000 (0.0-0.012) K/mm3 Nucleated RBC % 0.0 (0.0-0.2) % Sodium 136 L (137-145) mmol/L Potassium 3.7 (3.4-5.0) mmol/L Chloride 97 L (98-107) mmol/L Carbon Dioxide 31 H (22-30) mmol/L Anion Gap 8 (4-12) mmol/L BUN 17 (9-20) mg/dL Creatinine 0.90 (0.7-1.3) mg/dL Estim Creat Clear Calc 50 ml/min Estimated GFR > 60 (59 - ) Glucose 248 H (65-110) mg/dL Calcium 9.1 (8.4-10.2) mg/dL Total Bilirubin 0.5 (0.2-1.3) mg/dL AST 29 (17-59) U/L ALT 17 (6-50) U/L Alkaline Phosphatase 90 (38-126) U/L Total Protein 7.5 (6.3-8.2) g/dL Albumin 3.9 (3.5-5.1) g/dL Urine Color Yellow (Yellow) Urine Appearance Turbid H (Clear) Urine pH 5.5 (5.0-9.0) Ur Specific [place] 1.026 (1.001-1.035) Urine Protein 2+ H (Negative) mg/dL Urine Glucose (UA) 3+ H (Negative) mg/dL Urine Ketones Negative (Negative) mg/dL Ur Blood (Man) 3+ H (Negative) Urine Nitrate Negative (Negative) Urine Bilirubin Negative (Negative) Urine Urobilinogen 0.2 (<2.0) mg/dL Add Ur Microanalysis Reviewed Leukocyte Esterase Rfl 2+ H (Negative) VIDA/UL Urine RBC >100 H (0-2) /hpf Urine WBC >100 H (0-3) /hpf Ur Squamous Epith Cells None seen (Few) /hpf Urine Bacteria None seen /hpf Urine Casts 0-2 Discharge Plan Discharge Clinical Impression: Acute UTI, Inguinal hernia Patient Disposition: Home Condition: Stable Instructions: Antibiotic Form, Urinary Tract Infection in Men (ED), Inguinal Hernia (ED) Patient Language: Palauan Prescriptions: New cefdinir 300 mg capsule 300 mg PO Q12H Qty: 10 0RF cefdinir 300 mg capsule 300 mg PO Q12H Qty: 20 0RF No Action (DME) Adult Incontinence Pads Ht 5'9 wt 145 See Rx Instructions .Route .MEDSUPPLY Qty: 60 6RF Rx Instructions: As directed furosemide 20 mg tablet 10 mg PO DAILY Qty: 90 1RF potassium chloride 10 mEq tablet extended release 10 meq PO DAILY Qty: 90 1RF metformin [Glumetza] 1,000 mg tablet,ER kanika.retention 24 hr 1,000 mg PO DAILY Qty: 30 0RF nicotine [Nicoderm CQ] 21 mg/24 hr Patch 24 Hour 1 patch transdermal DAILY Qty: 28 0RF metoprolol tartrate 25 mg tablet 25 mg PO BID Qty: 200 2RF Dose Instruction: TAKE 1 TABLET BY MOUTH TWICE DAILY Rx Instructions: TAKE 1 TABLET BY MOUTH TWICE DAILY hydrochlorothiazide 12.5 mg capsule 12.5 mg PO DAILY Qty: 30 0RF insulin aspart U-100 [Novolog U-100 Insulin aspart] 100 unit/mL Solution 2 - 5 unit subcut TIDWM Qty: 10 0RF Protocol: Insulin Corrective Low-Dose Condition: glucose < 70 mg/dl Dose/Route: Follow Hypoglycemia Order Condition: glucose 70-200 mg/dl Dose/Route: No additional insulin Condition: glucose 201-250 mg/dl Dose/Route: 2 units sub-Q Condition: glucose 251-300 mg/dl Dose/Route: 3 units sub-Q Condition: glucose 301-350 mg/dl Dose/Route: 4 units sub-Q Condition: glucose 351-400 mg/dl Dose/Route: 5 units sub-Q Condition: glucose > 400 mg/dl Dose/Route: Call MD Protocol Text: *No Correction Dose at Bedtime* cephalexin 500 mg capsule 500 mg PO Q6H 7 Days Qty: 28 0RF mecobalamin (vitamin B12) 1,000 mcg tablet,chewable 1,000 mcg PO DAILY Eliquis 5 mg tablet See Rx Instructions .ROUTE .COMPLEX Qty: 120 5RF Dose Instruction: TAKE 1 TABLET BY MOUTH TWICE DAILY Rx Instructions: TAKE 1 TABLET BY MOUTH TWICE DAILY (DME) pen needle, diabetic 31 gauge x 5/16 needle See Rx Instructions .ROUTE .COMPLEX Qty: 200 0RF Dose Instruction: USE 2 PEN NEEDLES DAILY WITH LEVEMIR PEN Rx Instructions: USE 2 PEN NEEDLES DAILY WITH LEVEMIR PEN dapagliflozin propanediol [Farxiga] 5 mg tablet See Rx Instructions .ROUTE .COMPLEX Qty: 100 1RF Dose Instruction: TAKE 1 TABLET BY MOUTH AT BEDTIME Rx Instructions: TAKE 1 TABLET BY MOUTH AT BEDTIME niacin 500 mg tablet extended release 24 hr See Rx Instructions .ROUTE .COMPLEX Qty: 100 2RF Dose Instruction: TAKE 1 TABLET BY MOUTH AT BEDTIME Rx Instructions: TAKE 1 TABLET BY MOUTH AT BEDTIME donepezil 10 mg tablet See Rx Instructions .ROUTE .COMPLEX Qty: 90 3RF Dose Instruction: TAKE 1 TABLET BY MOUTH DAILY AT BEDTIME Rx Instructions: TAKE 1 TABLET BY MOUTH DAILY AT BEDTIME memantine 14 mg capsule,sprinkle,ER 24hr See Rx Instructions .ROUTE .COMPLEX Qty: 90 3RF Dose Instruction: TAKE 1 CAPSULE BY MOUTH DAILY Rx Instructions: TAKE 1 CAPSULE BY MOUTH DAILY folic acid 1 mg tablet 1 mg PO HS Qty: 90 1RF (DME) blood-glucose meter [Accu-Chek Guide Glucose Meter] [facility] See Rx Instructions .Route Qty: 1 0RF Rx Instructions: Use to check blood sugar once daily (DME) Accu-Chek Guide test strips Strip See Rx Instructions .Route Qty: 100 0RF Rx Instructions: Use to check blood sugar once daily. atorvastatin 20 mg tablet See Rx Instructions .ROUTE .COMPLEX Qty: 100 1RF Dose Instruction: TAKE 1 TABLET BY MOUTH AT BEDTIME Rx Instructions: TAKE 1 TABLET BY MOUTH AT BEDTIME omega 9-zpm-zsf-fish oil 300-1,000 mg Capsule 1 cap PO BID Qty: 60 0RF Follow-up/Referrals: Dimitry Kamara MD [Primary Care Provider, Internal Medicine]
[2025-06-14 14:48] LABS: Add Urine Microscopic? YES; Appearance Urine Turbid (Clear); Glucose Urine UA 3+ mg/dL (Negative); Leukocyte Esterase Ur 2+ LEU/UL (Negative); Need Manual Microscopic Reviewed; Nitrate Urine Negative (Negative); Non Pathogenic Casts 0-2; Specific Grav Ur 1.026 (1.001-1.035)
--- OUTSIDE RECORDS SUMMARY | 2025-06-14 17:59 | XMS_ITS | Clinical Summary ---
Author Organization [facility] Address [address] 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
--- OUTSIDE RECORDS SUMMARY | 2025-06-14 17:59 | XMS_ITS | Clinical Summary ---
Author Organization [facility] Address [address] [place] [address] Care Team Providers Care Senior Oracle Developer Name Role Phone Dimitry Kamara MD Primary Care Provider [phone] Source Comments [facility],non-owned Affiliates and Associated Physician Practices is amultiple site organization consisting of ambulatory clinics and hospital sitesin [place], [place], [place] and [place]. This disclosure is being madepursuant to the Care Everywhere program and may not contain all information available regarding this patient. Last updated 18.[facility] Allergies No known active allergies Medications * [...] (one) tablet by mouth at bedtime Active [place]-3 Fatty Acids (fish oil) 500 MG capsule [...] Recorded Patient Health Questionnaire-2 Score 0 03/31/2024 [place] of Occupat ional Health - Occupational Stress [...] place to sleep or slept in a jail (including now)? No 03/25/2024 Sex and Gender [...] yrs (1 - 1-dose 75+ series) 2020 DIABETES RETINOPATHY SCREENING 03/28/2024 DIABETES-FOOT EXAM WITH MONOFILAMENT 03/28/2024 DEPRESSION SCREENING 07/27/2024 03/25/2024 DIABETES - URINE PROTEIN SCREENING 07/27/2024 MEDICARE AWV CALENDAR YEAR 2024 DIABETES-HGB A1C 09/27/2024 03/30/2024 COVID-19 VACCINE ( - season) 2025 INFLUENZA VACCINE (#1) 2025 DIABETES-SERUM CREATININE 04/01/20252023, [...] - 26 mg/dL 04/01/2024 4:07 AM CDT [facility] Creatinine 0.69(L) 0.71 - 1.16 mg/dL 04/01/2024 4:07 AM [facility] Sodium 139 136 - 145 mmol/L 04/01/2024 4:07 AM [facility] Potassium 3.7 3.5 - 4.5 mmol/L 04/01/2024 4:07 AM [facility] Chloride 110(H) 98 - 107 mmol/L 04/01/2024 4:07 AM [facility] CO2 25 22 - 29 mmol/L 04/01/2024 4:07 AM [facility] Glucose 137(H) 70 - 115 mg/dL 04/01/2024 4:07 AM [facility] Calcium 8.6 8.4 - 10.2 mg/dL 04/01/2024 4:07 AM [facility] Protein Total 5.6(L) 6.0 - 8.3 g/dL 04/01/2024 4:07 AM [facility] Albumin 2.8(L) 3.4 - 5.0 g/dL 04/01/2024 4:07 AM [facility] Bilirubin Total 1.3(H) 0.2 - 1.2 mg/dL 04/01/2024 4:07 AM [facility] Alkaline Phosphatase 66 40 - 150 U/L 04/01/2024 4:07 AM [facility] ALT 28 5 - 55 U/L 04/01/2024 4:07 AM [facility] AST 23 5 - 34 U/L 04/01/2024 4:07 AM [facility] Anion Gap 4(L) 6 - 16 04/01/2024 4:07 AM [facility] BUN/Creatinine Ratio 20 7 - 23 04/01/2024 4:07 AM [facility] Osmolality Calculated 291 275 - 295 mOsm/kg 04/01/2024 4:07 AM [facility] Albumin/Globulin Ratio 1.0(L) 1.1 - 2.3 04/01/2024 4:07 AM [facility] eGFR by CKD-EPI >90 >=90 mL/min/1.7 3 m2 04/01/2024 4:07 AM [facility] Blood BLOOD SPECIMEN / Unknown Lab Venipuncture / Unknown 04/01/2024 3:04 AM CDT 04/01/2024 3:37 AM CDT Malachi Wayne MD LAB - CHEMISTRY ORDERABLES F inal Result Performing Organization Address [facility] Co de Phone Number [address] [address], [facility] [phone] * HEMOGLOBIN A1C (03/30/2024 7:56 AM CDT) Hemoglobin A1c 5.6 <=5.6 % 03/30/2024 9:41 AM [facility] Estimated Average Glucose 114 mg/dL 03/30/2024 9:41 AM [facility] Comment: HbA1c Interpretation: Normal : < 5.7% Pre-diabetes: 5.7-6.4% Diabetes: Equal to or greater than 6.5% Test results diagnostic of diabetes should be repeated for confirmation. Treatment target values recommended by ADA and other clinical organizations should be used to evaluate metabolic control in patients. Reference: [place] Diabetes Association, Standards of Care in Diabetes [...] ORDERABLES F inal Result Performing Organization Address City/[facility]/ZIP Co de Phone Number [address] [address], [facility] [phone] from Last 3 Months or Most Recently Relevant to Health Maintenance Insurance [facility] MANAGED MEDICARE ADV Advance Directives * Full Code (Latest Code Status on File) Date Activated Date Inactivated Comments 03/25/2024 8:09 PM 04/01/2024 1:28 PM Care Teams Senior Oracle Developer Relationship Specialty Start Date End Date Dimitry Kamara MD [address] [facility] [address] [facility] [address] [place] [address] PCP - General Internal Medicine 04/13/24
--- OUTSIDE RECORDS SUMMARY | 2025-06-14 17:59 | XMS_ITS | Encounter Summary ---
Author Organization [facility] Address 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 [address] [email or web address] Cardiac Catheterization Comprehensive Report Patient: Patricia Dunham Study ID: [id number] Gender: M : 1945 Age: 62 years Race: 1 Room: Bed: Height: 70 in ( 177.8 cm ) Study Date: November 08, 2007 Patient status: Inpatient Weight: 218 lb ( 99.1 kg ) Access. #: [id number] POC: Attending MD: Lien Performing MD: Lien [...] - Right heart catheterization. A 7 Fr Jesup Rica catheter was advanced to the pulmonary [...] placed and contrast was injected. 60 degree SRI LANKAN projection - Arterial hemostasis was obtained by [...] 16:02:33 Procedure Note Provider, Historical - 06/03/2008 [address] [place] [address] [email or web address] Cardiac Catheterization Comprehensive Report Patient: Patricia Dunham Study ID: [id number] Gender: M : 1945 Age: 62 years Race: 1 Room: Bed: Height: 70 in ( 177.8 cm ) Study Date: November 08, 2007 Patient status: Inpatient Weight: 218 lb ( 99.1 kg ) Access. #: [id number] POC: Attending MD: Lien Blair MD: Lien [...] - Right heart catheterization. A 7 Fr Jesup Rica catheter was advancedto the pulmonary artery [...] placed and contrast was injected. 60 degree SRI LANKAN projection - Arterial hemostasis was obtained by [...] FLUOROSCOPY ORDERABLES Final Result Performing Organization Address City/[facility] Co de Phone Number INTERFACE SYSTEM Refer to clinic/hospital department * POC GLUCOSE (11/16/2007 7:22 AM CDT) GLUCOSE POC 97 65 - 99 mg/dL [facility] Venous blood specimen (specimen) 11/16/2007 7:22 AM CDT 11/16/2007 7:22 AM CDT Jesusita Roland MD POINT OF CARE TESTING Final Result Performing Organization Address [facility] de Phone Number [facility] [address] [address] * (ABNORMAL) PROTIME-INR (11/16/2007 5:00 AM CDT) PROTIME 20.4(H) 12.7 - 15.1 Seconds [facility] INR 1.7(H) 0.9 - 1.1 [facility] Comment: INR Therapeutic Range: Adult: 2.0 - 3.0 for pulmonary embolism or prophylaxis against venous thrombosis or systemic embolization. 2.0 - 3.0 for patients with tissue heart valves. 2.5 - 3.5 for patients with mechanical heart valves or post OK. Pediatric (12 years and under): 1.5 - [...] HAMM HEMATOLOGY ORDERABLES Edited Performing Organization Address City/[facility]/ZIP Co de Phone Number [facility] [address] [place] [address] * (ABNORMAL) POC GLUCOSE (11/15/2007 8:06 PM CDT) GLUCOSE POC 123(H) 65 - 99 mg/dL [facility] Venous blood specimen (specimen) 11/15/2007 8:06 PM CDT 11/15/2007 8:06 PM CDT Jesusita Roland MD POINT OF CARE TESTING Final Result Performing Organization Address [facility] Co de Phone Number [facility] [address] [place] [place] [address] * (ABNORMAL) POC GLUCOSE (11/15/2007 4:47 PM CDT) GLUCOSE POC 62(L) 65 - 99 mg/dL [facility] Venous blood specimen (specimen) 11/15/2007 4:47 PM CDT 11/15/2007 4:47 PM CDT Jesusita Roland MD POINT OF CARE TESTING Final Result Performing Organization Address City/[facility]/ZIP Co de Phone Number [facility] [address] [place] [address] * (ABNORMAL) POC GLUCOSE (11/15/2007 10:57 AM CDT) GLUCOSE POC 162(H) 65 - 99 mg/dL [facility] Venous blood specimen (specimen) 11/15/2007 10:57 AM CDT 11/15/2007 10:57 AM CDT Jesusita Roland MD POINT OF CARE TESTING Final Result Performing Organization Address [facility] de Phone Number [facility] [address] [place] [address] * (ABNORMAL) PROTIME-INR (11/15/2007 4:00 AM CDT) PROTIME 16.8(H) 12.7 - 15.1 Seconds [facility] INR 1.4(H) 0.9 - 1.1 [facility] Comment: INR Therapeutic Range: Adult: 2.0 - 3.0 for pulmonary embolism or prophylaxis against venous thrombosis or systemic embolization. 2.0 - 3.0 for patients with tissue heart valves. 2.5 - 3.5 for patients with mechanical heart valves or post OK. Pediatric (12 years and under): 1.5 - [...] ORDERABLES F inal Result Performing Organization Address [facility] Co de Phone Number [facility] [address] [place] [address] * MAGNESIUM LEVEL (11/15/2007 4:00 AM CDT) MAGNESIUM 2.4 1.5 - 2.5 mg/dL [facility] Blood specimen (specimen) 11/15/2007 4:00 AM CDT 11/15/2007 4:24 AM CDT Mary Arellano Jr., MD CHEMISTRY ORDERABLES Fi nal Result Performing Organization Address [facility]/ZIP Co de Phone Number [facility] [address] [place] [address] * (ABNORMAL) BASIC METABOLIC PANEL (11/15/2007 4:00 AM CDT) CHLORIDE 99 96 - 108 mmol/L [facility] GLUCOSE 91 65 - 99 mg/dL [facility] SODIUM 134(L) 135 - 145 mmol/L [facility] CALCIUM 8.4 8.4 - 10.2 mg/dL [facility] CO2 26 22 - 30 mmol/L [facility] CREATININE 0.83 0.67 - 1.17 mg/dL [facility] POTASSIUM 4.3 3.5 - 4.9 mmol/L [facility] BUN 26(H) 6 - 20 mg/dL [facility] GFR, >60 >=60 mL/min/1. 7 sq meter [facility] GFR >60 >=60 mL/min/1. 7 sq meter [facility] Comment: Estimated GFR rate interpretative information for both Americans and non- Americans is available on the [facility] Intranet at: [email or web address] Select: Lab Policies and Procedures Select: Reference Ranges - GFR Blood specimen (specimen) 11/15/2007 4:00 AM CDT 11/15/2007 4:24 AM CDT Mary Arellano Jr., MD CHEMISTRY ORDERABLES Ed ited Performing Organization Address City/[facility]/ZIP Co de Phone Number [facility] [address] [place] [address] * (ABNORMAL) CBC WITH DIFFERENTIAL (11/15/2007 4:00 AM CDT) RBC 4.03(L) 4.50 - 5.40 M/uL [facility] MCHC 33.1 31.5 - 35.5 % [facility] MCV 98.3 82.0 - 99.0 fL [facility] PLATELETS 106(L) 140 - 350 K/uL [facility] HEMOGLOBIN 13.1(L) 13.6 - 16.5 g/dL [facility] RDW 13.3 11.5 - 14.5 % [facility] WBC 13.6(H) 4.0 - 9.8 K/uL [facility] MCH 32.5 27.2 - 32.6 pg [facility] MPV 12.2 9.3 - 12.4 fL [facility] HEMATOCRIT 39.6(L) 40.0 - 48.0 % [facility] RDW-STDEV 47.5 37.1 - 48.7 fL [facility] NEUTROPHILS 77(H) 45 - 70 % [facility] NEUTROPHIL ABSOLUTE 10.45(H) 1.90 - 7.00 K/uL [facility] EOSINOPHILS 1 0 - 7 % [facility] EOSINOPHIL ABSOLUTE 0.08 0.00 - 0.70 K/uL [facility] LYMPHOCYTES 11(L) 16 - 45 % [facility] LYMPHOCYTE ABSOLUTE 1.50 0.70 - 4.50 K/uL [facility] BASOPHILS 0 0 - 2 % [facility] BASOPHILS ABSOLUTE 0.01 0.00 - 0.20 K/uL [facility] MONOCYTES 11 3 - 13 % [facility] MONOCYTE ABSOLUTE 1.51(H) 0.10 - 1.30 K/uL [facility] Blood specimen (specimen) 11/15/2007 4:00 AM CDT 11/15/2007 4:24 AM CDT Mary Arellano Jr., MD HEMATOLOGY ORDERABLES E dited Performing Organization Address City/[facility] Co de Phone Number INTERFACE SYSTEM Refer to clinic/hospital department [facility] [address] [place] [address] * POC GLUCOSE (11/14/2007 8:08 PM CDT) GLUCOSE POC 93 65 - 99 mg/dL [facility] Venous blood specimen (specimen) 11/14/2007 8:08 PM CDT 11/14/2007 8:08 PM CDT Jesusita Roland MD POINT OF CARE TESTING Final Result Performing Organization Address [facility] Co de Phone Number [facility] [address] [address] * (ABNORMAL) POC GLUCOSE (11/14/2007 4:11 PM CDT) GLUCOSE POC 112(H) 65 - 99 mg/dL [facility] Venous blood specimen (specimen) 11/14/2007 4:11 PM CDT 11/14/2007 4:11 PM CDT Jesusita Roland MD POINT OF CARE TESTING Final Result Performing Organization Address City/[facility]/ZIP Co de Phone Number [facility] [address] [place] [address] * (ABNORMAL) POC GLUCOSE (11/14/2007 11:29 AM CDT) GLUCOSE POC 108(H) 65 - 99 mg/dL [facility] Venous blood specimen (specimen) 11/14/2007 11:29 AM CDT 11/14/2007 11:29 AM CDT Jesusita Roland MD POINT OF CARE TESTING Final Result [facility] [address] [place] [address] * POC GLUCOSE (11/14/2007 7:44 AM CDT) GLUCOSE POC 84 65 - 99 mg/dL [facility] Venous blood specimen (specimen) 11/14/2007 7:44 AM CDT 11/14/2007 7:44 AM CDT Jesusita Roland MD POINT OF CARE TESTING Final Result Performing Organization Address [facility] Co de Phone Number [facility] [address] [place] [address] * XR CHEST PA AND LATERAL (11/14/2007 5:55 AM CDT) Anatomical Region Laterality Modality Chest Other 11/14/2007 5:55 AM CDT Narrative 11/14/2007 8:46 AM CDT [facility] [address] [place], [place] [address] Admit Date: 11/02/2007 PATRICIA DUNHAM Sex: M Admit Prov: JESUSITA ROLAND Date: 1945 Primary Care Prov: MERYL FRIEDMAN CMRN: [id number] Room: [address] [place] [address] SSN: [id number] IMAGING SERVICES Ordering Prov: N/A Accession Number: [id number] Interpretation Chest 2 views, 11/14/07 Comparison: 11/12/2007 [...] [facility] [address] [place], [place] [address] Admit Date: 11/02/2007 PATRICIA DUNHAM Sex: M Admit Prov: JESUSITA ROLAND Date: 1945 Primary Care Prov: MERYL FRIEDMAN CMRN: [id number] Room: [address] [place] [address] SSN: [id number] IMAGING SERVICES Ordering Prov: N/A Interpretation Chest [...] Mary Arellano Jr., MD DIAGNOSTIC IMAGING ORDChavo [facility] Final Result * (ABNORMAL) CBC WITH DIFFERENTIAL (11/14/2007 4:25 AM CDT) MCH 32.1 27.2 - 32.6 pg [facility] MPV 12.5(H) 9.3 - 12.4 fL [facility] HEMATOCRIT 40.3 40.0 - 48.0 % [facility] RDW-STDEV 48.3 37.1 - 48.7 fL [facility] RBC 4.05(L) 4.50 - 5.40 M/uL [facility] MCHC 32.3 31.5 - 35.5 % [facility] MCV 99.5(H) 82.0 - 99.0 fL [facility] PLATELETS 81(L) 140 - 350 K/uL [facility] Comment: Persistent abnormal result HEMOGLOBIN 13.0(L) 13.6 - 16.5 g/dL [facility] RDW 13.3 11.5 - 14.5 % [facility] WBC 15.4(H) 4.0 - 9.8 K/uL [facility] MONOCYTE ABSOLUTE 1.92(H) 0.10 - 1.30 K/uL [facility] NEUTROPHILS 79(H) 45 - 70 % [facility] NEUTROPHIL ABSOLUTE 12.20(H) 1.90 - 7.00 K/uL [facility] EOSINOPHILS 0 0 - 7 % [facility] EOSINOPHIL ABSOLUTE 0.03 0.00 - 0.70 K/uL [facility] LYMPHOCYTES 8(L) 16 - 45 % [facility] LYMPHOCYTE ABSOLUTE 1.20 0.70 - 4.50 K/uL [facility] BASOPHILS 0 0 - 2 % [facility] BASOPHILS ABSOLUTE 0.02 0.00 - 0.20 K/uL [facility] MONOCYTES 13 3 - 13 % [facility] Blood specimen (specimen) 11/14/2007 4:25 AM CDT 11/14/2007 5:48 AM CDT us Charleen HAMM HEMATOLOGY ORDERABLES Edited INTERFACE SYSTEM Refer to clinic/hospital department [facility] [address] [place] [address] * (ABNORMAL) POC GLUCOSE (11/13/2007 8:54 PM CDT) GLUCOSE POC 114(H) 65 - 99 mg/dL [facility] Venous blood specimen (specimen) 11/13/2007 8:54 PM CDT 11/13/2007 8:54 PM CDT us Jesusita Roland MD POINT OF CARE TESTING Final Result Performing Organization Address [facility]/ZIP Co de Phone Number [facility] [address] [place] [address] * (ABNORMAL) POC GLUCOSE (11/13/2007 4:21 PM CDT) GLUCOSE POC 64(L) 65 - 99 mg/dL [facility] Venous blood specimen (specimen) 11/13/2007 4:21 PM CDT 11/13/2007 4:21 PM CDT us Jesusita Roland MD POINT OF CARE TESTING Final Result Performing Organization Address [facility] Co de Phone Number [facility] [address] [place] [address] * (ABNORMAL) POC GLUCOSE (11/13/2007 11:25 AM CDT) GLUCOSE POC 161(H) 65 - 99 mg/dL [facility] Venous blood specimen (specimen) 11/13/2007 11:25 AM CDT 11/13/2007 11:25 AM CDT us Jesusita Roland MD POINT OF CARE TESTING Final Result Performing Organization Address City/[facility] Co de Phone Number [facility] [address] [place] [address] * (ABNORMAL) POC GLUCOSE (11/13/2007 7:23 AM CDT) GLUCOSE POC 101(H) 65 - 99 mg/dL [facility] Venous blood specimen (specimen) 11/13/2007 7:23 AM CDT 11/13/2007 7:23 AM CDT Jesusita Roland MD POINT OF CARE TESTING Final Result Performing Organization Address City/[facility]/ZIP Co de Phone Number [facility] [address] [place] [address] * MAGNESIUM LEVEL (11/13/2007 5:00 AM CDT) MAGNESIUM 2.3 1.5 - 2.5 mg/dL [facility] Blood specimen (specimen) 11/13/2007 5:00 AM CDT 11/13/2007 5:46 AM CDT Mary Arellano Jr., MD CHEMISTRY ORDERABLES Fi nal Result Performing Organization Address [facility] Co de Phone Number [facility] [address] [place] [address] * (ABNORMAL) BASIC METABOLIC PANEL (11/13/2007 5:00 AM CDT) BUN 17 6 - 20 mg/dL [facility] CHLORIDE 100 96 - 108 mmol/L [facility] GLUCOSE 106(H) 65 - 99 mg/dL [facility] SODIUM 135 135 - 145 mmol/L [facility] CALCIUM 8.7 8.4 - 10.2 mg/dL [facility] CO2 28 22 - 30 mmol/L [facility] CREATININE 0.93 0.67 - 1.17 mg/dL [facility] POTASSIUM 4.6 3.5 - 4.9 mmol/L [facility] GFR, >60 >=60 mL/min/1. 7 sq meter [facility] GFR >60 >=60 mL/min/1. 7 sq meter [facility] Comment: Estimated GFR rate interpretative information for both Americans and non- Americans is available on the [facility] Intranet at: [email or web address] Select: Lab Policies and Procedures Select: Reference Ranges - GFR Blood specimen (specimen) 11/13/2007 5:00 AM CDT 11/13/2007 5:46 AM CDT Mary Arellano Jr., MD CHEMISTRY ORDERABLES Ed ited [facility] [address] [place] [address] * (ABNORMAL) CBC WITH DIFFERENTIAL (11/13/2007 5:00 AM CDT) HEMATOCRIT 44.2 40.0 - 48.0 % [facility] RDW-STDEV 47.5 37.1 - 48.7 fL [facility] RBC 4.43(L) 4.50 - 5.40 M/uL [facility] MCHC 32.6 31.5 - 35.5 % [facility] MCV 99.8(H) 82.0 - 99.0 fL [facility] PLATELETS 82(L) 140 - 350 K/uL [facility] HEMOGLOBIN 14.4 13.6 - 16.5 g/dL [facility] RDW 13.2 11.5 - 14.5 % [facility] WBC 19.9(H) 4.0 - 9.8 K/uL [facility] MCH 32.5 27.2 - 32.6 pg [facility] MPV 12.7(H) 9.3 - 12.4 fL [facility] EOSINOPHILS 0 0 - 7 % [facility] EOSINOPHIL ABSOLUTE 0.04 0.00 - 0.70 K/uL [facility] LYMPHOCYTES 7(L) 16 - 45 % [facility] LYMPHOCYTE ABSOLUTE 1.37 0.70 - 4.50 K/uL [facility] BASOPHILS 0 0 - 2 % [facility] BASOPHILS ABSOLUTE 0.02 0.00 - 0.20 K/uL [facility] MONOCYTES 12 3 - 13 % [facility] MONOCYTE ABSOLUTE 2.40(H) 0.10 - 1.30 K/uL [facility] NEUTROPHILS 81(H) 45 - 70 % [facility] NEUTROPHIL ABSOLUTE 16.10(H) 1.90 - 7.00 K/uL [facility] Blood specimen (specimen) 11/13/2007 5:00 AM CDT 11/13/2007 5:46 AM CDT us Mary Arellano Jr., MD HEMATOLOGY ORDERABLES E dited INTERFACE SYSTEM Refer to clinic/hospital department [facility] [address] [place] [address] * (ABNORMAL) POC GLUCOSE (11/12/2007 8:47 PM CDT) GLUCOSE POC 174(H) 65 - 99 mg/dL [facility] Venous blood specimen (specimen) 11/12/2007 8:47 PM CDT 11/12/2007 8:47 PM CDT us Jesusita Roland MD POINT OF CARE TESTING Final Result Performing Organization Address City/[facility] Co de Phone Number [facility] [address] [place] [address] * (ABNORMAL) POC GLUCOSE (11/12/2007 6:10 PM CDT) GLUCOSE POC 165(H) 65 - 99 mg/dL [facility] Venous blood specimen (specimen) 11/12/2007 6:10 PM CDT 11/12/2007 6:10 PM CDT Jesusita Roland MD POINT OF CARE TESTING Final Result [facility] [address] [place] [address] * (ABNORMAL) POC GLUCOSE (11/12/2007 12:15 PM CDT) COMMENT, GLU POC Notified RN [facility] GLUCOSE POC 177(H) 65 - 99 mg/dL [facility] Venous blood specimen (specimen) 11/12/2007 12:15 PM CDT 11/12/2007 12:15 PM CDT Jesusita Roland MD POINT OF CARE TESTING Final Result Performing Organization Address [facility] Co de Phone Number [facility] [address] [place] [address] * XR CHEST PA OR AP (11/12/2007 8:55 AM CDT) Anatomical Region Laterality Modality Chest Other 11/12/2007 8:55 AM CDT Narrative 11/12/2007 9:23 AM CDT [facility] [address] [place], [place] [address] Admit Date: 11/02/2007 PATRICIA DUNHAM Sex: M Admit Prov: JESUSITA ROLAND Date: 1945 Primary Care Prov: MERYL FRIEDMAN CMRN: [id number] Room: [address] [place] [address] SSN: [id number] IMAGING SERVICES Ordering Prov: N/A Accession Number: [id number] Interpretation Chest single view 11/12/2007 History: Chest [...] - [facility] [address] [place], [place] [address] Admit Date: 11/02/2007 PATRICIA DUNHAM Sex: M Admit Prov: JESUSITA ROLAND Date: 1945 Primary Care Prov: CARMINEBee MERYL Luh CMRN: [id number] Room: [address] [place] [address] SSN: [id number] IMAGING SERVICES Ordering Prov: N/A Interpretation Chest [...] GLUCOSE POC 176(H) 65 - 99 mg/dL [facility] Venous blood specimen (specimen) 11/12/2007 7:40 AM CDT 11/12/2007 7:40 AM CDT us Jesuista Roland MD POINT OF CARE TESTING Final Result [facility] [address] [place] [address] * XR CHEST PA OR AP (11/12/2007 7:20 AM CDT) Anatomical Region Laterality Modality Chest Other 11/12/2007 7:20 AM CDT Narrative 11/12/2007 9:12 AM CDT [facility] [address] [place], [place] [address] Admit Date: 11/02/2007 PATRICIA DUNHAM Sex: M Admit Prov: JESUSITA ROLAND Date: 1945 Primary Care Prov: MERYL FRIEDMAN CMRN: [id number] Room: [address] [place] [address] SSN: [id number] IMAGING SERVICES Ordering Prov: N/A Accession Number: [id number] Interpretation Chest single view 11/12/2007 History: Postop Findings: Comparison study is from the same day. The right Jesup-Rica catheter has been removed. There is right intravenous catheter with its tip in SVC. One of the left chest tubes has been removed. No pneumothorax is seen. Small left pleural effusion and mild left lower lobe atelectasis are noted. . Dictated by: JESSICA PEPE 11/12/2007 09:11 Electronically signed by: JESSICA PEPE 11/12/2007 09:12 Procedure Note Jessica Pepe - 11/12/2007 [id number] [place], [place] [address] Admit Date: 11/02/2007 ANIKETPATRICIA MERRITT Sex: M Admit Prov: JESUSITA ROLAND Date: 1945 Primary Care Prov: MERYL FRIEDMAN CMRN: [id number] Room: [address] [place] [address] SSN: [id number] IMAGING SERVICES Ordering Prov: N/A Interpretation Chest [...] GLUCOSE POC 151(H) 65 - 99 mg/dL [facility] Venous blood specimen (specimen) 11/12/2007 6:18 AM CDT 11/12/2007 6:18 AM CDT us Jesusita Roland MD POINT OF CARE TESTING Final Result Performing Organization Address City/State/[facility] Co de Phone Number [facility] [address] [place] [address] * XR CHEST PA OR AP (11/12/2007 5:20 AM CDT) Anatomical Region Laterality Modality Chest Other 11/12/2007 5:20 AM CDT Narrative 11/12/2007 9:04 AM CDT [facility] [address] [place], [place] [address] Admit Date: 11/02/2007 PATRICIA DUNHAM Sex: M Admit Prov: JESUSITA ROLAND Date: 1945 Primary Care Prov: MERYL FRIEDMAN CMRN: [id number] Room: [facility] SSN: [id number] IMAGING SERVICES Ordering Prov: N/A Accession Number: [id number] Interpretation Chest, 11/12/2007 Clinical History: Respiratory abnormality and previous cardiac surgery. AP portable semiupright view of the chest on 11/12/2007 at 0515 hours is compared to 11/11/2007. The patient has been extubated. The patient is status post median sternotomy and prosthetic aortic valve. The mediastinal drainage tubes and left basilar chest tube are unchanged. A Jesup-Rica catheter is noted with the tip projected [...] [facility] [address] [place], [place] [address] Admit Date: 11/02/2007 PATRICIA DUNHAM Sex: M Admit Prov: JESUSITA ROLAND Date: 1945 Primary Care Prov: AISHALopezMERYL GIORDANO Luh CMRN: [id number] Room: [address] [place] [address] SSN: [id number] IMAGING SERVICES Ordering Prov: N/A Interpretation Chest, [...] GLUCOSE POC 141(H) 65 - 99 mg/dL [facility] Venous blood specimen (specimen) 11/12/2007 5:06 AM CDT 11/12/2007 5:06 AM CDT Jesusita Roland MD POINT OF CARE TESTING Final Result Performing Organization Address City/[facility]/ZIP Co de Phone Number [facility] [address] [place] [address] * (ABNORMAL) POC GLUCOSE (11/12/2007 4:24 AM CDT) GLUCOSE POC 110(H) 65 - 99 mg/dL [facility] Venous blood specimen (specimen) 11/12/2007 4:24 AM CDT 11/12/2007 4:24 AM CDT Jesusita Roland MD POINT OF CARE TESTING Final Result Performing Organization Address City/[facility]/ZIP Co de Phone Number [facility] [address] [place] [address] * (ABNORMAL) PT AND APTT (11/12/2007 4:15 AM CDT) INR 1.3(H) 0.9 - 1.1 [facility] Comment: INR Therapeutic Range: Adult: 2.0 - 3.0 for pulmonary embolism or prophylaxis against venous thrombosis or systemic embolization. 2.0 - 3.0 for patients with tissue heart valves. 2.5 - 3.5 for patients with mechanical heart valves or post OK. Pediatric (12 years and under): 1.5 - 3.0 Although the target range in children is not well established, INR values of 1.5 - 3.0 are recommended for most patients. Higher values have been used in children with prosthetic cardiac valves and hereditary clotting disorders. (<3 days) therapeutic ranges have not been established. PROTIME 16.3(H) 12.7 - 15.1 Seconds [facility] PTT 26.9 24.4 - 36.4 [facility] Comment: PTT Therapeutic Range: Heparin Level PTT (seconds) <0.10 units/mL <53 0.10 - 0.30 units/mL 53 - 67 0.30 - 0.70 units/mL* 67 - 95* 0.70 - 1.00 units/mL 95 - 116 *corresponds to therapeutic range for unfractionated heparin Blood specimen (specimen) 11/12/2007 4:15 AM CDT 11/12/2007 4:35 AM CDT Mary Arellano Jr., MD HEMATOLOGY ORDERABLES E dited [facility] [address] [facility] [place] [address] * (ABNORMAL) COMPREHENSIVE METABOLIC PANEL (11/12/2007 4:15 AM CDT) ALKALINE PHOSPHATASE 35(L) 40 - 129 U/L [facility] BILIRUBIN TOTAL 0.5 0.2 - 1.0 mg/dL [facility] CO2 22 22 - 30 mmol/L [facility] TOTAL PROTEIN 5.5(L) 6.3 - 8.6 g/dL [facility] POTASSIUM 4.8 3.5 - 4.9 mmol/L [facility] Comment: Slight hemolysis present. Result may be falsely elevated. GLUCOSE 144(H) 65 - 99 mg/dL [facility] AST 44(H) 12 - 38 U/L [facility] Comment: Hemolyzed: Result may be falsely elevated. BUN 14 6 - 20 mg/dL [facility] CALCIUM 7.8(L) 8.4 - 10.2 mg/dL [facility] CHLORIDE 108 96 - 108 mmol/L [facility] ALBUMIN 3.2(L) 3.4 - 4.8 g/dL [facility] CREATININE 0.89 0.67 - 1.17 mg/dL [facility] SODIUM 139 135 - 145 mmol/L [facility] ALT 25 0 - 41 U/L [facility] GFR, >60 >=60 mL/min/1. 7 sq meter [facility] GFR >60 >=60 mL/min/1. 7 sq meter [facility] Comment: Estimated GFR rate interpretative information for both Americans and non- Americans is available on the [facility] Intranet at: [email or web address] Select: Lab Policies and Procedures Select: Reference Ranges - GFR Blood specimen (specimen) 11/12/2007 4:15 AM CDT 11/12/2007 4:35 AM CDT Mary Arellano Jr., MD CHEMISTRY ORDERABLES Ed ited [facility] [address] [facility] [address] * (ABNORMAL) CVR ONLY, CKMB/CK (11/12/2007 4:15 AM CDT) CKMB 18.2(AA) <=6.7 ng/mL [facility] Comment: Persistent abnormal result CKMB INTERP See Below [facility] Comment: Elevated CKMB,Consistent with Myocardial Injury CK 326(H) 10 - 170 U/L [facility] Comment: Hemolyzed: Result may be falsely elevated. CARDIAC RELATIVE INDEX 5.6(H) <=4.0 [facility] Blood specimen (specimen) 11/12/2007 4:15 AM CDT 11/12/2007 4:35 AM CDT Mary Arellano Jr., MD CHEMISTRY ORDERABLES Ed ited [facility] [address] [place], [place] [address] * (ABNORMAL) CBC WITH DIFFERENTIAL (11/12/2007 4:15 AM CDT) MCV 98.6 82.0 - 99.0 fL [facility] HEMOGLOBIN 15.9 13.6 - 16.5 g/dL [facility] RDW 13.1 11.5 - 14.5 % [facility] WBC 18.2(H) 4.0 - 9.8 K/uL [facility] MCH 32.9(H) 27.2 - 32.6 pg [facility] HEMATOCRIT 47.7 40.0 - 48.0 % [facility] RDW-STDEV 47.1 37.1 - 48.7 fL [facility] RBC 4.84 4.50 - 5.40 M/uL [facility] MCHC 33.3 31.5 - 35.5 % [facility] EOSINOPHILS 0 0 - 7 % [facility] EOSINOPHIL ABSOLUTE 0.00 0.00 - 0.70 K/uL [facility] LYMPHOCYTES 3(L) 16 - 45 % [facility] LYMPHOCYTE ABSOLUTE 0.52(L) 0.70 - 4.50 K/uL [facility] BASOPHILS 0 0 - 2 % [facility] BASOPHILS ABSOLUTE 0.02 0.00 - 0.20 K/uL [facility] MONOCYTES 9 3 - 13 % [facility] MONOCYTE ABSOLUTE 1.70(H) 0.10 - 1.30 K/uL [facility] NEUTROPHILS 88(H) 45 - 70 % [facility] NEUTROPHIL ABSOLUTE 15.98(H) 1.90 - 7.00 K/uL [facility] PLATELETS 81(L) 140 - 350 K/uL [facility] Comment: Platelets verified by smear review. MPV 12.7(H) 9.3 - 12.4 fL [facility] Blood specimen (specimen) 11/12/2007 4:15 AM CDT 11/12/2007 4:35 AM CDT Mary Arellano Jr., MD HEMATOLOGY ORDERABLES E dited Performing Organization Address City/[facility]/ZIP Co de Phone Number [facility] [address] [place] [address] * (ABNORMAL) POC GLUCOSE (11/12/2007 3:11 AM CDT) GLUCOSE POC 140(H) 65 - 99 mg/dL [facility] Venous blood specimen (specimen) 11/12/2007 3:11 AM CDT 11/12/2007 3:11 AM CDT Jesusita Roland MD POINT OF CARE TESTING Final Result Performing Organization Address [facility]/ZIP Co de Phone Number [facility] [address] [place] [address] * (ABNORMAL) POC GLUCOSE (11/12/2007 2:08 AM CDT) GLUCOSE POC 137(H) 65 - 99 mg/dL [facility] Venous blood specimen (specimen) 11/12/2007 2:08 AM CDT 11/12/2007 2:08 AM CDT us Jesusita Roland MD POINT OF CARE TESTING Final Result Performing Organization Address [facility] de Phone Number [facility] [address] [place], [place] [address] * (ABNORMAL) POC GLUCOSE (11/12/2007 1:00 AM CDT) GLUCOSE POC 186(H) 65 - 99 mg/dL [facility] Venous blood specimen (specimen) 11/12/2007 1:00 AM CDT 11/12/2007 1:00 AM CDT us Jesusita Roland MD POINT OF CARE TESTING Final Result Performing Organization Address [facility] de Phone Number [facility] [address] [place], [place] [address] * (ABNORMAL) POC GLUCOSE (11/12/2007 12:19 AM CDT) GLUCOSE POC 218(H) 65 - 99 mg/dL [facility] Venous blood specimen (specimen) 11/12/2007 12:19 AM CDT 11/12/2007 12:19 AM CDT us Jesusita Roland MD POINT OF CARE TESTING Final Result Performing Organization Address [facility] de Phone Number [facility] [address] [place] [address] * POTASSIUM LEVEL (11/12/2007 12:12 AM CDT) POTASSIUM 4.8 3.5 - 4.9 mmol/L [facility] Blood specimen (specimen) 11/12/2007 12:12 AM CDT 11/12/2007 12:17 AM CDT Mary Arellano Jr., MD CHEMISTRY ORDERABLES Fi nal Result Performing Organization Address [facility]/ZIP Co de Phone Number [facility] [address] [place] [address] * (ABNORMAL) POC GLUCOSE (11/11/2007 11:07 PM CDT) GLUCOSE POC 169(H) 65 - 99 mg/dL [facility] Venous blood specimen (specimen) 11/11/2007 11:07 PM CDT 11/11/2007 11:07 PM CDT Jesusita Roland MD POINT OF CARE TESTING Final Result Performing Organization Address [facility] Co de Phone Number [facility] [address] [place] [address] * (ABNORMAL) POC GLUCOSE (11/11/2007 10:21 PM CDT) GLUCOSE POC 137(H) 65 - 99 mg/dL [facility] Venous blood specimen (specimen) 11/11/2007 10:21 PM CDT 11/11/2007 10:21 PM CDT Jesusita Roland MD POINT OF CARE TESTING Final Result Performing Organization Address [facility] Co de Phone Number [facility] [address] [place] [address] * (ABNORMAL) POC RT, BLOOD GASES (11/11/2007 10:01 PM CDT) PH ARTERIAL 7.37 7.35 - 7.45 [facility] BASE EXCESS ABG -1.6 -2.0 - 3.0 mmol/L [facility] COMMENT, GASES POC RN NOTIFIED [facility] HEMATOCRIT POC 46.0 40.0 - 48.0 % [facility] O2 SAT EST ABG POC 99 95 - 99 % [facility] POTASSIUM POC 5.3(H) 3.5 - 4.9 mmol/L [facility] PCO2 ARTERIAL 41 35 - 48 mm Hg [facility] FIO2 40 [facility] HCO3 ARTERIAL 24 22 - 26 mmol/L [facility] PATIENT'S TEMPERATURE 37.0 Degree C [facility] CALICUM IONIZED, WHOLE BLOOD 4.33(L) 4.76 - 5.16 mg/dL [facility] PEEP POC 5 [facility] PO2 ARTERIAL 137(H) 83 - 108 mm Hg [facility] SODIUM POC 131(L) 135 - 145 mmol/L [facility] OXYGEN MODE SIMV [facility] Blood specimen (specimen) 11/11/2007 10:01 PM CDT 11/11/2007 10:01 PM CDT Jesusita Roland MD CHEMISTRY ORDERABLES Final R esult Performing Organization Address City/[facility]/ZIP Co de Phone Number [facility] [address] [facility] [place] [address] * (ABNORMAL) POC GLUCOSE (11/11/2007 9:11 PM CDT) GLUCOSE POC 166(H) 65 - 99 mg/dL [facility] Venous blood specimen (specimen) 11/11/2007 9:11 PM CDT 11/11/2007 9:11 PM CDT Jesusita Roland MD POINT OF CARE TESTING Final Result [facility] [address] [place] [address] * (ABNORMAL) POC GLUCOSE (11/11/2007 8:02 PM CDT) GLUCOSE POC 127(H) 65 - 99 mg/dL [facility] Venous blood specimen (specimen) 11/11/2007 8:02 PM CDT 11/11/2007 8:02 PM CDT Jesusita Roland MD POINT OF CARE TESTING Final Result Performing Organization Address [facility] Co de Phone Number [facility] [address] [place] [address] * (ABNORMAL) POTASSIUM LEVEL (11/11/2007 7:55 PM CDT) POTASSIUM 5.2(H) 3.5 - 4.9 mmol/L [facility] Comment: No significant hemolysis Blood specimen (specimen) 11/11/2007 7:55 PM CDT 11/11/2007 8:04 PM CDT Mary Arellano Jr., MD CHEMISTRY ORDERABLES Fi nal Result Performing Organization Address [facility] Co de Phone Number [facility] [address] [place] [address] * (ABNORMAL) POC RT, BLOOD GASES (11/11/2007 5:30 PM CDT) POTASSIUM POC 4.4 3.5 - 4.9 mmol/L [facility] PCO2 ARTERIAL 45 35 - 48 mm Hg [facility] FIO2 60 [facility] HCO3 ARTERIAL 25 22 - 26 mmol/L [facility] PATIENT'S TEMPERATURE 37.0 Degree C [facility] CALICUM IONIZED, WHOLE BLOOD 4.77 4.76 - 5.16 mg/dL [facility] PEEP POC 5 [facility] PO2 ARTERIAL 128(H) 83 - 108 mm Hg [facility] SODIUM POC 133(L) 135 - 145 mmol/L [facility] OXYGEN MODE SIMV/PSV [facility] PH ARTERIAL 7.36 7.35 - 7.45 [facility] BASE EXCESS ABG -0.4 -2.0 - 3.0 mmol/L [facility] COMMENT, GASES POC NOTIFIED [facility] HEMATOCRIT POC 43.0 40.0 - 48.0 % [facility] O2 SAT EST ABG POC 99 95 - 99 % [facility] Blood specimen (specimen) 11/11/2007 5:30 PM CDT 11/11/2007 5:30 PM CDT Result [facility] Jesusita Roland MD CHEMISTRY ORDERABLES Final R esult Performing Organization Address [facility]/ZIP Co de Phone Number [facility] [address] [place] [address] * (ABNORMAL) POC GLUCOSE (11/11/2007 5:23 PM CDT) GLUCOSE POC 140(H) 65 - 99 mg/dL [facility] Venous blood specimen (specimen) 11/11/2007 5:23 PM CDT 11/11/2007 5:23 PM CDT Jesusita Roland MD POINT OF CARE TESTING Final Result Performing Organization Address [facility] Co de Phone Number [facility] [address] [place] [address] * (ABNORMAL) PT AND APTT (11/11/2007 5:14 PM CDT) PROTIME 19.0(H) 12.7 - 15.1 Seconds [facility] INR 1.6(H) 0.9 - 1.1 [facility] Comment: INR Therapeutic Range: Adult: 2.0 - 3.0 for pulmonary embolism or prophylaxis against venous thrombosis or systemic embolization. 2.0 - 3.0 for patients with tissue heart valves. 2.5 - 3.5 for patients with mechanical heart valves or post OK. Pediatric (12 years and under): 1.5 - 3.0 Although the target range in children is not well established, INR values of 1.5 - 3.0 are recommended for most patients. Higher values have been used in children with prosthetic cardiac valves and hereditary clotting disorders. (<3 days) therapeutic ranges have not been established. PTT 31.1 24.4 - 36.4 Seconds [facility] Comment: PTT Therapeutic Range: Heparin Level PTT (seconds) <0.10 units/mL <53 0.10 - 0.30 units/mL 53 - 67 0.30 - 0.70 units/mL* 67 - 95* 0.70 - 1.00 units/mL 95 - 116 *corresponds to therapeutic range for unfractionated heparin PROTIME COMMENT Slightly Hemolyzed [facility] PTT COMMENT Slightly Hemolyzed [facility] Blood specimen (specimen) 11/11/2007 5:14 PM CDT 11/11/2007 5:30 PM CDT Mary Arellano Jr., MD HEMATOLOGY ORDERABLES E dited Performing Organization Address City/[facility]/ZIP Co de Phone Number [facility] [address] [place] [address] * (ABNORMAL) MAGNESIUM LEVEL (11/11/2007 5:14 PM CDT) MAGNESIUM 2.9(H) 1.5 - 2.5 mg/dL [facility] Blood specimen (specimen) 11/11/2007 5:14 PM CDT 11/11/2007 5:30 PM CDT Mary Arellano Jr., MD CHEMISTRY ORDERABLES Fi nal Result Performing Organization Address City/[facility]/ZIP Co de Phone Number [facility] [address] [place] [address] * (ABNORMAL) CVR ONLY, CKMB/CK (11/11/2007 5:14 PM CDT) Pathologist [facility] CKMB 15.8(AA) <=6.7 ng/mL [facility] Comment: Results called to Mona at 11/11/07 5:58 PM and read back verified. CKMB INTERP See Below [facility] Comment: Elevated CKMB,Consistent with Myocardial Injury. CK 156 10 - 170 U/L [facility] CARDIAC RELATIVE INDEX N/A <=4.0 [facility] Blood specimen (specimen) 11/11/2007 5:14 PM CDT 11/11/2007 5:30 PM CDT Mary Arellano Jr., MD CHEMISTRY ORDERABLES Ed ited [facility] [address] [facility] [address] * (ABNORMAL) BASIC METABOLIC PANEL (11/11/2007 5:14 PM CDT) Pathologist [facility] BUN 15 6 - 20 mg/dL [facility] CHLORIDE 106 96 - 108 mmol/L [facility] GLUCOSE 142(H) 65 - 99 mg/dL [facility] SODIUM 135 135 - 145 mmol/L [facility] CALCIUM 8.2(L) 8.4 - 10.2 mg/dL [facility] CO2 22 22 - 30 mmol/L [facility] CREATININE 0.87 0.67 - 1.17 mg/dL [facility] POTASSIUM 4.5 3.5 - 4.9 mmol/L [facility] Comment: Moderate hemolysis present. Can cause significant falsely elevated result. Clinical judgement necessary. Redraw if indicated. GFR, >60 >=60 mL/min/1. 7 sq meter [facility] GFR >60 >=60 mL/min/1. 7 sq meter [facility] Comment: Estimated GFR rate interpretative information for both Americans and non- Americans is available on the [facility] Intranet at: [email or web address] Select: Lab Policies and Procedures Select: Reference Ranges - GFR Blood specimen (specimen) 11/11/2007 5:14 PM CDT 11/11/2007 5:30 PM CDT Mary Arellano Jr., MD CHEMISTRY ORDERABLES Ed ited [facility] [address] [place] [address] * (ABNORMAL) CBC WITH DIFFERENTIAL (11/11/2007 5:14 PM CDT) HEMATOCRIT 45.6 40.0 - 48.0 % [facility] RDW-STDEV 46.7 37.1 - 48.7 fL [facility] RBC 4.64 4.50 - 5.40 M/uL [facility] MCHC 33.8 31.5 - 35.5 % [facility] MCV 98.3 82.0 - 99.0 fL [facility] HEMOGLOBIN 15.4 13.6 - 16.5 g/dL [facility] RDW 13.0 11.5 - 14.5 % [facility] WBC 21.8(H) 4.0 - 9.8 K/uL [facility] MCH 33.2(H) 27.2 - 32.6 pg [facility] MPV 11.7 9.3 - 12.4 fL [facility] PLATELETS 91(L) 140 - 350 K/uL [facility] PLATELET EST. Consistent w/ count Normal [facility] BASOPHILS ABSOLUTE 0.00 0.00 - 0.20 K/uL [facility] EOSINOPHILS 0 0 - 7 % [facility] MONOCYTE ABSOLUTE 1.31(H) 0.10 - 1.30 K/uL [facility] RBC MORPHOLOGY Normal Normal [facility] LYMPHOCYTES 1(L) 16 - 45 % [facility] NEUTROPHIL ABSOLUTE 20.27(H) 1.90 - 7.00 K/uL [facility] NEUTROPHILS, SEG 88(H) 45 - 70 % [facility] BASOPHILS 0 0 - 2 % [facility] EOSINOPHIL ABSOLUTE 0.00 0.00 - 0.70 K/uL [facility] MONOCYTES 6 3 - 13 % [facility] REVIEWED ON SMEAR Plt OK by Smear Rev. [facility] LYMPHOCYTE ABSOLUTE 0.22(L) 0.70 - 4.50 K/uL [facility] BANDS 5 0 - 5 % [facility] Blood specimen (specimen) 11/11/2007 5:14 PM CDT 11/11/2007 5:30 PM CDT us Mary Arellano Jr., MD HEMATOLOGY ORDERABLES E dited [facility] [address] [place] [address] * XR CHEST PA OR AP (11/11/2007 5:14 PM CDT) Anatomical Region Laterality Modality Chest Other 11/11/2007 5:14 PM CDT Narrative 11/11/2007 11:27 PM CDT [facility] [address] [place], [place] [address] Admit Date: 11/02/2007 PATRICIA DUN[place]AM Sex: M Admit Prov: JESUSITA ROLAND Date: 1945 Primary Care Prov: MERYL FRIEDMAN CMRN: [id number] Room: [address] [place] [address] SSN: [id number] IMAGING SERVICES Ordering Prov: N/A Accession Number: [id number] Interpretation CHEST, AP PORTABLE, 11/11/2007, 1725 HOURS History: Cardiac surgery. Findings: Sternal wires and mediastinal drains indicate recent cardiac surgery. Prosthetic heart valve is present. Endotracheal tube ends at the clavicles. Right internal jugular Jesup-Rica catheter ends in the right pulmonary artery. Right lung is clear. Left basilar atelectasis and/or small left effusion are present. There is no pneumothorax. . Dictated by: CONRADO SCHROEDER 11/11/2007 17:39 Electronically signed by: CONRADO SCHROEDER 11/11/2007 23:27 Transcribed: 11/11/2007 17:41 SMM Procedure Note Conrado Schroeder MD - 11/11/2007 [facility] [address] [place], [place] [address] Admit Date: 11/02/2007 PATRICIA DUNHAM Sex: M Admit Prov: JESUSITA ROLAND Date: 1945 Primary Care Prov: MERYL FRIEDMAN CMRN: [id number] Room: [address] [place] [address] SSN: [id number] IMAGING SERVICES Ordering Prov: N/A Interpretation CHEST, AP PORTABLE, 11/11/2007, 1725 HOURS History: Cardiac surgery. Findings: Sternal wires and mediastinal drains indicate recentcardiac surgery. Prosthetic heart valve is present. Endotracheal tube ends atthe clavicles. Right internal jugular Jesup-Rica catheter ends in theright pulmonary artery. Right [...] ARTERIAL 427(H) 83 - 108 mm Hg [facility] SODIUM POC 133(L) 135 - 145 mmol/L [facility] TCO2, ABG POC 26(H) 19 - 24 mmol/L [facility] PH ARTERIAL 7.36 7.35 - 7.45 [facility] BASE EXCESS ABG -1.2 -2.0 - 3.0 mmol/L [facility] HEMATOCRIT POC 35.0(L) 40.0 - 48.0 % [facility] O2 SAT EST ABG POC 100(H) 95 - 99 % [facility] LACTIC ACID 2.1 0.5 - 2.2 mmol/L [facility] POTASSIUM POC 4.3 3.5 - 4.9 mmol/L [facility] PCO2 ARTERIAL 43 35 - 48 mm Hg [facility] HCO3 ARTERIAL 24 22 - 26 mmol/L [facility] PATIENT'S TEMPERATURE 37.0 Degree C [facility] CALICUM IONIZED, WHOLE BLOOD 5.05 4.76 - 5.16 mg/dL [facility] GLUCOSE POC 176(H) 65 - 99 mg/dL [facility] Blood specimen (specimen) 11/11/2007 4:44 PM CDT 11/11/2007 4:44 PM CDT Jesusita Roland MD CHEMISTRY ORDERABLES Final R esult [facility] [address] [place] [address] * (ABNORMAL) POC RT, BLOOD GASES (11/11/2007 4:17 PM CDT) GLUCOSE POC 200(H) 65 - 99 mg/dL [facility] O2 SAT EST ABG POC 100(H) 95 - 99 % [facility] SODIUM POC 132(L) 135 - 145 mmol/L [facility] PH ARTERIAL 7.34(L) 7.35 - 7.45 [facility] TCO2, ABG POC 25(H) 19 - 24 mmol/L [facility] COMMENT, GASES POC POST BYPASS [facility] PATIENT'S TEMPERATURE 37.0 Degree C [facility] POTASSIUM POC 4.6 3.5 - 4.9 mmol/L [facility] PCO2 ARTERIAL 44 35 - 48 mm Hg [facility] LACTIC ACID 2.2 0.5 - 2.2 mmol/L [facility] CALICUM IONIZED, WHOLE BLOOD 5.21(H) 4.76 - 5.16 mg/dL [facility] BASE EXCESS ABG -2.1(L) -2.0 - 3.0 mmol/L [facility] PO2 ARTERIAL 332(H) 83 - 108 mm Hg [facility] HCO3 ARTERIAL 24 22 - 26 mmol/L [facility] HEMATOCRIT POC 34.0(L) 40.0 - 48.0 % [facility] Blood specimen (specimen) 11/11/2007 4:17 PM CDT 11/11/2007 4:17 PM CDT us Jesusita Roland MD CHEMISTRY ORDERABLES Final R esult [facility] [address] [place] [address] * (ABNORMAL) POC RT, BLOOD GASES (11/11/2007 3:56 PM CDT) PATIENT'S TEMPERATURE 37.0 Degree C [facility] LACTIC ACID 2.5(H) 0.5 - 2.2 mmol/L [facility] CALICUM IONIZED, WHOLE BLOOD 4.49(L) 4.76 - 5.16 mg/dL [facility] PO2 ARTERIAL 178(H) 83 - 108 mm Hg [facility] SODIUM POC 132(L) 135 - 145 mmol/L [facility] PH ARTERIAL 7.37 7.35 - 7.45 [facility] BASE EXCESS ABG 0.5 -2.0 - 3.0 mmol/L [facility] HEMATOCRIT POC 29.0(L) 40.0 - 48.0 % [facility] GLUCOSE POC 188(H) 65 - 99 mg/dL [facility] O2 SAT EST ABG POC 100(H) 95 - 99 % [facility] POTASSIUM POC 5.4(H) 3.5 - 4.9 mmol/L [facility] TCO2, ABG POC 27(H) 19 - 24 mmol/L [facility] PCO2 ARTERIAL 45 35 - 48 mm Hg [facility] HCO3 ARTERIAL 26 22 - 26 mmol/L [facility] COMMENT, GASES POC ON BYPASS [facility] Blood specimen (specimen) 11/11/2007 3:56 PM CDT 11/11/2007 3:56 PM CDT us Jesusita Roland MD CHEMISTRY ORDERABLES Final R esult [facility] [address] [place] [address] * (ABNORMAL) POC RT, BLOOD GASES (11/11/2007 3:46 PM CDT) PATIENT'S TEMPERATURE 37.0 Degree C [facility] LACTIC ACID 2.4(H) 0.5 - 2.2 mmol/L [facility] CALICUM IONIZED, WHOLE BLOOD 4.57(L) 4.76 - 5.16 mg/dL [facility] PO2 ARTERIAL 315(H) 83 - 108 mm Hg [facility] SODIUM POC 129(L) 135 - 145 mmol/L [facility] PH ARTERIAL 7.30(L) 7.35 - 7.45 [facility] BASE EXCESS ABG -4.6(L) -2.0 - 3.0 mmol/L [facility] HEMATOCRIT POC 29.0(L) 40.0 - 48.0 % [facility] GLUCOSE POC 196(H) 65 - 99 mg/dL [facility] O2 SAT EST ABG POC 100(H) 95 - 99 % [facility] POTASSIUM POC 5.3(H) 3.5 - 4.9 mmol/L [facility] TCO2, ABG POC 23 19 - 24 mmol/L [facility] PCO2 ARTERIAL 44 35 - 48 mm Hg [facility] HCO3 ARTERIAL 22 22 - 26 mmol/L [facility] COMMENT, GASES POC ON BYPASS [facility] Blood specimen (specimen) 11/11/2007 3:46 PM CDT 11/11/2007 3:46 PM CDT us Jesusita Roland MD CHEMISTRY ORDERABLES Final R esult [facility] [address] [place] [id number] * (ABNORMAL) POC RT, BLOOD GASES (11/11/2007 3:11 PM CDT) GLUCOSE POC 204(H) 65 - 99 mg/dL [facility] PCO2 ARTERIAL 39 35 - 48 mm Hg [facility] POTASSIUM POC 5.6(H) 3.5 - 4.9 mmol/L [facility] PCO2 TEMP CORRECT 35 mm Hg [facility] TCO2, ABG POC 24 19 - 24 mmol/L [facility] PATIENT'S TEMPERATURE 34.5 Degree C [facility] HCO3 ARTERIAL 23 22 - 26 mmol/L [facility] COMMENT, GASES POC ON [facility]PASS [facility] PO2 ARTERIAL 239(H) 83 - 108 mm Hg [facility] PO2 TEMP CORRECT 227 mm Hg [facility] LACTIC ACID 1.5 0.5 - 2.2 mmol/L [facility] CALICUM IONIZED, WHOLE BLOOD 4.45(L) 4.76 - 5.16 mg/dL [facility] PH ARTERIAL 7.38 7.35 - 7.45 [facility] PH TEMP CORRECT 7.42 [facility] SODIUM POC 129(L) 135 - 145 mmol/L [facility] O2 SAT EST ABG POC 100(H) 95 - 99 % [facility] HEMATOCRIT POC 32.0(L) 40.0 - 48.0 % [facility] BASE EXCESS ABG -1.8 -2.0 - 3.0 mmol/L [facility] Blood specimen (specimen) 11/11/2007 3:11 PM CDT 11/11/2007 3:11 PM CDT us Jesusita Roland MD CHEMISTRY ORDERABLES Final R esult [facility] [address] [place] [id number] * (ABNORMAL) POC RT, BLOOD GASES (11/11/2007 2:45 PM CDT) O2 SAT EST ABG POC 100(H) 95 - 99 % [facility] BASE EXCESS ABG -0.6 -2.0 - 3.0 mmol/L [facility] GLUCOSE POC 169(H) 65 - 99 mg/dL [facility] HEMATOCRIT POC 30.0(L) 40.0 - 48.0 % [facility] PCO2 ARTERIAL 55(H) 35 - 48 mm Hg [facility] PCO2 TEMP CORRECT 49 mm Hg [facility] TCO2, ABG POC 28(H) 19 - 24 mmol/L [facility] POTASSIUM POC 5.5(H) 3.5 - 4.9 mmol/L [facility] PATIENT'S TEMPERATURE 34.5 Degree C [facility] COMMENT, GASES POC ON BYPASS [facility] HCO3 ARTERIAL 26 22 - 26 mmol/L [facility] PO2 ARTERIAL 261(H) 83 - 108 mm Hg [facility] CALICUM IONIZED, WHOLE BLOOD 4.53(L) 4.76 - 5.16 mg/dL [facility] PO2 TEMP CORRECT 249 mm Hg [facility] LACTIC ACID 1.2 0.5 - 2.2 mmol/L [facility] PH ARTERIAL 7.29(L) 7.35 - 7.45 [facility] PH TEMP CORRECT 7.32 [facility] SODIUM POC 128(L) 135 - 145 mmol/L [facility] Blood specimen (specimen) 11/11/2007 2:45 PM CDT 11/11/2007 2:45 PM CDT Jesusita Roland MD CHEMISTRY ORDERABLES Final R esult Performing Organization Address City/[facility]/ZIP Co de Phone Number [facility] [address] [place] [address] * MISCELLANEOUS CULTURE (11/11/2007 2:45 PM CDT) PRELIMINARY REPORT No growth 48 hours [facility] FINAL REPORT No growth 3 days [facility] 11/11/2007 2:45 PM CDT 11/11/2007 5:51 PM CDT Mary Arellano Jr., MD MICROBIOLOGY - GENERAL ORDERABLES Final Result Performing Organization Address [facility] Co de Phone Number [facility] [address] [facility] [place] [address] * PATHOLOGY (11/11/2007 2:39 PM CDT) FINAL REPORT [facility] [address] [place], [place] [address] Patient: PATRICIA DUNHAM : 1945 Procedure Date: 11/11/2007 Accession Date: 11/12/2007 Case No: [id number] Ordering Dr: MARY ARELLANO Case types AW, BW, FW, NW and SH are performed by [facility], [place], [place] SURGICAL PATHOLOGY & NON-GYNECOLOGIC CYTOPATHOLOGY REPORT [...] valve cusps. The tissue is severely calcified. Quilt Maker sections are submitted in cassettes A1-2 for decalcification. Received in the second container, additionally labeled ascending aorta, is a 5.5-cm long by 4-cm diameter tubular piece of yellow-tatum fibromembranous tissue consistent with aorta. A dissecting aneurysm is not identified. The intimal surface is remarkable for a fatty streak. There is no evidence of calcification. Quilt Maker sections are submitted in cassette B1. KLA/DRC [...] CDT) PCO2 TEMP CORRECT 34 mm Hg [facility] PATIENT'S TEMPERATURE 34.5 Degree C [facility] PO2 ARTERIAL 346(H) 83 - 108 mm Hg [facility] SODIUM POC 133(L) 135 - 145 mmol/L [facility] GLUCOSE POC 117(H) 65 - 99 mg/dL [facility] PH ARTERIAL 7.42 7.35 - 7.45 [facility] PO2 TEMP CORRECT 333 mm Hg [facility] TCO2, ABG POC 26(H) 19 - 24 mmol/L [facility] POTASSIUM POC 5.0(H) 3.5 - 4.9 mmol/L [facility] HEMATOCRIT POC 31.0(L) 40.0 - 48.0 % [facility] CALICUM IONIZED, WHOLE BLOOD 4.57(L) 4.76 - 5.16 mg/dL [facility] O2 SAT EST ABG POC 100(H) 95 - 99 % [facility] HCO3 ARTERIAL 25 22 - 26 mmol/L [facility] COMMENT, GASES POC ON BYPASS [facility] PCO2 ARTERIAL 38 35 - 48 mm Hg [facility] BASE EXCESS ABG 0.2 -2.0 - 3.0 mmol/L [facility] LACTIC ACID 1.5 0.5 - 2.2 mmol/L [facility] PH TEMP CORRECT 7.46 [facility] Blood specimen (specimen) 11/11/2007 2:14 PM CDT 11/11/2007 2:14 PM CDT us Jesusita Roland MD CHEMISTRY ORDERABLES Final R esult [facility] [address] [facility] [address] * (ABNORMAL) POC RT, BLOOD GASES (11/11/2007 2:07 PM CDT) PCO2 VENOUS 46 38 - 50 mm Hg [facility] PCO2 TEMP CORRECT 40 mm Hg [facility] TCO2, MVBG POC 27(H) 22 - 26 mmol/L [facility] POTASSIUM POC 5.4(H) 3.5 - 4.9 mmol/L [facility] PATIENT'S TEMPERATURE 34.0 Degree C [facility] COMMENT, GASES POC ON BYPASS [facility] HCO3 MIXED VENOUS 26 22 - 29 mmol/L [facility] PO2 MVBG 58(H) 25 - 40 mm Hg [facility] CALICUM IONIZED, WHOLE BLOOD 4.57(L) 4.76 - 5.16 mg/dL [facility] PO2 TEMP CORRECT 47 mm Hg [facility] LACTIC ACID 1.6 0.5 - 2.2 mmol/L [facility] PH MVBG 7.36 7.32 - 7.43 [facility] PH TEMP CORRECT 7.40 [facility] SODIUM POC 134(L) 135 - 145 mmol/L [facility] O2 SAT EST MVBG POC 89(H) 40 - 70 % [facility] BASE EXCESS VENOUS 0.3 -2.0 - 3.0 mmol/L [facility] GLUCOSE POC 110(H) 65 - 99 mg/dL [facility] HEMATOCRIT POC 30.0(L) 40.0 - 48.0 % [facility] Blood specimen (specimen) 11/11/2007 2:07 PM CDT 11/11/2007 2:07 PM CDT us Jesusita Roland MD CHEMISTRY ORDERABLES Final R esult [facility] [address] [place] [address] * (ABNORMAL) POC RT, BLOOD GASES (11/11/2007 1:50 PM CDT) PATIENT'S TEMPERATURE 37.0 Degree C [facility] GLUCOSE POC 116(H) 65 - 99 mg/dL [facility] CALICUM IONIZED, WHOLE BLOOD 4.53(L) 4.76 - 5.16 mg/dL [facility] PO2 ARTERIAL 476(H) 83 - 108 mm Hg [facility] TCO2, ABG POC 27(H) 19 - 24 mmol/L [facility] SODIUM POC 134(L) 135 - 145 mmol/L [facility] PH ARTERIAL 7.39 7.35 - 7.45 [facility] BASE EXCESS ABG 0.8 -2.0 - 3.0 mmol/L [facility] HEMATOCRIT POC 40.0 40.0 - 48.0 % [facility] O2 SAT EST ABG POC 100(H) 95 - 99 % [facility] POTASSIUM POC 4.2 3.5 - 4.9 mmol/L [facility] LACTIC ACID 1.3 0.5 - 2.2 mmol/L [facility] PCO2 ARTERIAL 43 35 - 48 mm Hg [facility] HCO3 ARTERIAL 26 22 - 26 mmol/L [facility] Blood specimen (specimen) 11/11/2007 1:50 PM CDT 11/11/2007 1:50 PM CDT us Jesusita Roland MD CHEMISTRY ORDERABLES Final R esult [facility] [address] [facility] [place] [address] * (ABNORMAL) POC RT, BLOOD GASES (11/11/2007 12:52 PM CDT) COMMENT, GASES POC POST INDUCTION [facility] HCO3 ARTERIAL 27(H) 22 - 26 mmol/L [facility] PATIENT'S TEMPERATURE 37.0 Degree C [facility] CALICUM IONIZED, WHOLE BLOOD 4.57(L) 4.76 - 5.16 mg/dL [facility] LACTIC ACID 0.9 0.5 - 2.2 mmol/L [facility] PO2 ARTERIAL 487(H) 83 - 108 mm Hg [facility] SODIUM POC 134(L) 135 - 145 mmol/L [facility] PH ARTERIAL 7.40 7.35 - 7.45 [facility] BASE EXCESS ABG 1.4 -2.0 - 3.0 mmol/L [facility] GLUCOSE POC 119(H) 65 - 99 mg/dL [facility] HEMATOCRIT POC 47.0 40.0 - 48.0 % [facility] O2 SAT EST ABG POC 100(H) 95 - 99 % [facility] TCO2, ABG POC 28(H) 19 - 24 mmol/L [facility] POTASSIUM POC 4.0 3.5 - 4.9 mmol/L [facility] PCO2 ARTERIAL 43 35 - 48 mm Hg [facility] Blood specimen (specimen) 11/11/2007 12:52 PM CDT 11/11/2007 12:52 PM CDT Jesusita Roland MD CHEMISTRY ORDERABLES Final R esult Performing Organization Address City/[facility]/ZIP Co de Phone Number [facility] [address] [place] [address] * (ABNORMAL) POC GLUCOSE (11/11/2007 7:03 AM CDT) GLUCOSE POC 116(H) 65 - 99 mg/dL [facility] Venous blood specimen (specimen) 11/11/2007 7:03 AM CDT 11/11/2007 7:03 AM CDT us Jesusita Roland MD POINT OF CARE TESTING Final Result [facility] [address] [place] [address] * (ABNORMAL) POC GLUCOSE (11/10/2007 8:15 PM CDT) GLUCOSE POC 131(H) 65 - 99 mg/dL [facility] Venous blood specimen (specimen) 11/10/2007 8:15 PM CDT 11/10/2007 8:15 PM CDT Jesusita Roland MD POINT OF CARE TESTING Final Result [facility] [address] [place] [address] * (ABNORMAL) POC GLUCOSE (11/10/2007 5:28 PM CDT) GLUCOSE POC 100(H) 65 - 99 mg/dL [facility] Venous blood specimen (specimen) 11/10/2007 5:28 PM CDT 11/10/2007 5:28 PM CDT Jesusita Roland MD POINT OF CARE TESTING Final Result Performing Organization Address City/[facility]/ZIP Co de Phone Number [facility] [address] [place] [address] * (ABNORMAL) POC GLUCOSE (11/10/2007 11:41 AM CDT) GLUCOSE POC 184(H) 65 - 99 mg/dL [facility] Venous blood specimen (specimen) 11/10/2007 11:41 AM CDT 11/10/2007 11:41 AM CDT us Jesusita Roland MD POINT OF CARE TESTING Final Result Performing Organization Address City/[facility]/ZIP Co de Phone Number [facility] [address] [place] [address] * (ABNORMAL) POC GLUCOSE (11/10/2007 7:36 AM CDT) GLUCOSE POC 108(H) 65 - 99 mg/dL [facility] Venous blood specimen (specimen) 11/10/2007 7:36 AM CDT 11/10/2007 7:36 AM CDT us Jesusita Roland MD POINT OF CARE TESTING Final Result Performing Organization Address City/[facility]/ZIP Co de Phone Number [facility] [address] [place] [address] * (ABNORMAL) POC GLUCOSE (11/09/2007 8:15 PM CDT) GLUCOSE POC 170(H) 65 - 99 mg/dL [facility] Venous blood specimen (specimen) 11/09/2007 8:15 PM CDT 11/09/2007 8:15 PM CDT Jesusita Roland MD POINT OF CARE TESTING Final Result Performing Organization Address [facility] Co de Phone Number [facility] [address] [place] [place] [address] * (ABNORMAL) POC GLUCOSE (11/09/2007 5:51 PM CDT) GLUCOSE POC 151(H) 65 - 99 mg/dL [facility] Venous blood specimen (specimen) 11/09/2007 5:51 PM CDT 11/09/2007 5:51 PM CDT us Jesusita Roland MD POINT OF CARE TESTING Final Result Performing Organization Address City/[facility]/ZIP Co de Phone Number [facility] [address] [place] [address] * (ABNORMAL) POC GLUCOSE (11/09/2007 11:34 AM CDT) GLUCOSE POC 146(H) 65 - 99 mg/dL [facility] Venous blood specimen (specimen) 11/09/2007 11:34 AM CDT 11/09/2007 11:34 AM CDT Jesusita Roland MD POINT OF CARE TESTING Final Result Performing Organization Address City/[facility]/ZIP Co de Phone Number [facility] [address] [place] [address] * (ABNORMAL) POC GLUCOSE (11/09/2007 8:35 AM CDT) GLUCOSE POC 111(H) 65 - 99 mg/dL [facility] Venous blood specimen (specimen) 11/09/2007 8:35 AM CDT 11/09/2007 8:35 AM CDT Jesusita Roland MD POINT OF CARE TESTING Final Result Performing Organization Address [facility] Co de Phone Number [facility] [address] [place] [address] * XR CHEST PA AND LATERAL (11/09/2007 7:32 AM CDT) Anatomical Region Laterality Modality Chest Other 11/09/2007 7:32 AM CDT Narrative 11/09/2007 10:56 AM CDT Ordered by SOFYA PRINCE [facility] [address] [place], [place] [address] Admit Date: 11/02/2007 PATRICIA DUNHAM Sex: M Admit Prov: JESUSITA ROLAND Date: 1945 Primary Care Prov: MERYL FRIEDMAN CMRN: [id number] Room: [address] [place] [address] SSN: [id number] IMAGING SERVICES Ordering Prov: N/A Accession Number: [id number] Interpretation Exam: Chest x-ray PA and lateral. [...] [facility] [address] [place], [place] [address] Admit Date: 11/02/2007 PATRICIA DUNHAM Sex: M Admit Prov: JESUSITA ROLAND Date: 1945 Primary Care Prov: MERYL FRIEDMAN CMRN: [id number] Room: [address] [place] [address] SSN: [id number] IMAGING SERVICES Ordering Prov: N/A Interpretation Exam: [...] DIGOXIN LEVEL 0.7(L) 0.8 - 2.0 ng/mL [facility] Comment:Digoxin Toxic Level = >2.0 ng/mL Blood specimen (specimen) 11/09/2007 5:45 AM CDT 11/09/2007 6:23 AM CDT us Sofya HAMM CHEMISTRY ORDERABLES Final Res ult [facility] [address] [place] [address] * (ABNORMAL) COMPREHENSIVE METABOLIC PANEL (11/09/2007 5:45 AM CDT) CO2 25 22 - 30 mmol/L [facility] TOTAL PROTEIN 6.5 6.3 - 8.6 g/dL [facility] SODIUM 136 135 - 145 mmol/L [facility] POTASSIUM 3.9 3.5 - 4.9 mmol/L [facility] GLUCOSE 115(H) 65 - 99 mg/dL [facility] AST 28 12 - 38 U/L [facility] BUN 18 6 - 20 mg/dL [facility] CALCIUM 8.4 8.4 - 10.2 mg/dL [facility] ALBUMIN 3.6 3.4 - 4.8 g/dL [facility] CHLORIDE 102 96 - 108 mmol/L [facility] CREATININE 0.98 0.67 - 1.17 mg/dL [facility] ALT 35 0 - 41 U/L [facility] ALKALINE PHOSPHATASE 44 40 - 129 U/L [facility] BILIRUBIN TOTAL 0.6 0.2 - 1.0 mg/dL [facility] GFR, >60 >=60 mL/min/1. 7 sq meter [facility] GFR >60 >=60 mL/min/1. 7 sq meter [facility] Comment: Estimated GFR rate interpretative information for both Americans and non- Americans is available on the [facility] Intranet at: [email or web address] Select: Lab Policies and Procedures Select: Reference Ranges - GFR Blood specimen (specimen) 11/09/2007 5:45 AM CDT 11/09/2007 6:23 AM CDT Sofya HAMM CHEMISTRY ORDERABLES Edited [facility] [address] [facility] [address] [place] [address] * (ABNORMAL) CBC WITH DIFFERENTIAL (11/09/2007 5:45 AM CDT) WBC 9.8 4.0 - 9.8 K/uL [facility] MCH 32.9(H) 27.2 - 32.6 pg [facility] MPV 11.3 9.3 - 12.4 fL [facility] HEMATOCRIT 49.5(H) 40.0 - 48.0 % [facility] RDW-STDEV 47.2 37.1 - 48.7 fL [facility] RBC 5.02 4.50 - 5.40 M/uL [facility] MCHC 33.3 31.5 - 35.5 % [facility] MCV 98.6 82.0 - 99.0 fL [facility] PLATELETS 172 140 - 350 K/uL [facility] HEMOGLOBIN 16.5 13.6 - 16.5 g/dL [facility] RDW 13.1 11.5 - 14.5 % [facility] LYMPHOCYTE ABSOLUTE 1.84 0.70 - 4.50 K/uL [facility] BASOPHILS 0 0 - 2 % [facility] BASOPHILS ABSOLUTE 0.03 0.00 - 0.20 K/uL [facility] MONOCYTES 12 3 - 13 % [facility] MONOCYTE ABSOLUTE 1.17 0.10 - 1.30 K/uL [facility] NEUTROPHILS 67 45 - 70 % [facility] NEUTROPHIL ABSOLUTE 6.50 1.90 - 7.00 K/uL [facility] EOSINOPHILS 2 0 - 7 % [facility] EOSINOPHIL ABSOLUTE 0.21 0.00 - 0.70 K/uL [facility] LYMPHOCYTES 19 16 - 45 % [facility] Blood specimen (specimen) 11/09/2007 5:45 AM CDT 11/09/2007 6:23 AM CDT Sofya HAMM HEMATOLOGY ORDERABLES Edited INTERFACE SYSTEM Refer to clinic/hospital department [facility] [address] [place] [address] * (ABNORMAL) URINALYSIS (11/09/2007 4:10 AM CDT) LEUKOCYTE ESTERASE UA Negative Negative [facility] RBC UA 1 0 - 3 /HPF [facility] SPECIFIC GRAVITY UA 1.044(H) 1.001 - 1.035 [facility] Comment: Results confirmed by 2nd methodology. BLOOD UA Negative Negative [facility] GLUCOSE UA 3+(A) Negative [facility] Comment: Verified by repeat analysis. COLOR UA Yellow [facility] NITRITE UA Negative Negative [facility] UROBILINOGEN UA 4(H) <=1 mg/dL [facility] Comment: Verified by repeat analysis. EPITHELIAL CELLS, URINE 0-2 /HPF [facility] PH UA 6.0 5.0 - 8.0 [facility] KETONES UA 1+(A) Negative [facility] WBC UA 1 0 - 3 /HPF [facility] CLARITY UA Clear Clear [facility] PROTEIN UA Trace(A) Negative [facility] BILIRUBIN UA Negative Negative [facility] 11/09/2007 4:10 AM CDT 11/09/2007 4:36 AM CDT us James Hopkins MD URINE ORDERABLES Final Result Performing Organization Address [facility] Co de Phone Number [facility] [address] [place] [address] * URINALYSIS WITH REFLEX CULTURE (11/09/2007 4:10 AM CDT) URINE CULTURE ORDER Not indicated [facility] Comment: Criteria for a reflex culture [...] URINE ORDERABLES Final Result Performing Organization Address [facility] Co de Phone Number [facility] [address] [place] [address] * (ABNORMAL) POC GLUCOSE (11/08/2007 8:21 PM CDT) GLUCOSE POC 142(H) 65 - 99 mg/dL [facility] Venous blood specimen (specimen) 11/08/2007 8:21 PM CDT 11/08/2007 8:21 PM CDT Jesusita Roland MD POINT OF CARE TESTING Final Result Performing Organization Address [facility] Co de Phone Number [facility] [address] [address] * (ABNORMAL) POC GLUCOSE (11/08/2007 4:56 PM CDT) GLUCOSE POC 100(H) 65 - 99 mg/dL [facility] Venous blood specimen (specimen) 11/08/2007 4:56 PM CDT 11/08/2007 4:56 PM CDT us Jesusita Roland MD POINT OF CARE TESTING Final Result Performing Organization Address City/[facility]/ZIP Co de Phone Number [facility] [address] [address] * (ABNORMAL) POC GLUCOSE (11/08/2007 11:39 AM CDT) GLUCOSE POC 112(H) 65 - 99 mg/dL [facility] Venous blood specimen (specimen) 11/08/2007 11:39 AM CDT 11/08/2007 11:39 AM CDT us Jesusita Roland MD POINT OF CARE TESTING Final Result Performing Organization Address [facility]/ZIP Co de Phone Number [facility] [address] [place] [address] * POC GLUCOSE (11/08/2007 7:22 AM CDT) GLUCOSE POC 93 65 - 99 mg/dL [facility] Venous blood specimen (specimen) 11/08/2007 7:22 AM CDT 11/08/2007 7:22 AM CDT us Jesusita Roland MD POINT OF CARE TESTING Final Result Performing Organization Address City/[facility]/ZIP Co de Phone Number [facility] [address] [address] * (ABNORMAL) POC GLUCOSE (11/07/2007 8:42 PM CDT) COMMENT, GLU POC Notified RN [facility] GLUCOSE POC 149(H) 65 - 99 mg/dL [facility] Venous blood specimen (specimen) 11/07/2007 8:42 PM CDT 11/07/2007 8:42 PM CDT us Jesusita Roland MD POINT OF CARE TESTING Final Result Performing Organization Address City/[facility]/ZIP Co de Phone Number [facility] [address] [place] [address] * (ABNORMAL) POC GLUCOSE (11/07/2007 4:44 PM CDT) GLUCOSE POC 137(H) 65 - 99 mg/dL [facility] Venous blood specimen (specimen) 11/07/2007 4:44 PM CDT 11/07/2007 4:44 PM CDT us Jesusita Roland MD POINT OF CARE TESTING Final Result Performing Organization Address [facility] Co de Phone Number [facility] [address] [place] [address] * POC GLUCOSE (11/07/2007 11:38 AM CDT) GLUCOSE POC 84 65 - 99 mg/dL [facility] Venous blood specimen (specimen) 11/07/2007 11:38 AM CDT 11/07/2007 11:38 AM CDT us Jesusita Roland MD POINT OF CARE TESTING Final Result Performing Organization Address City/[facility] Co de Phone Number [facility] [address] [address] * DIGOXIN LEVEL (11/07/2007 9:18 AM CDT) DIGOXIN LEVEL 1.4 0.8 - 2.0 ng/mL [facility] Comment:Digoxin Toxic Level = >2.0 ng/mL Blood specimen (specimen) 11/07/2007 9:18 AM CDT 11/07/2007 9:36 AM CDT Domingo Teran MD CHEMISTRY ORDERABLES Final R esult Performing Organization Address City/[facility] Co de Phone Number [facility] [address] [place] [address] * (ABNORMAL) PROTIME-INR (11/07/2007 9:18 AM CDT) PROTIME 15.4(H) 12.7 - 15.1 Seconds [facility] INR 1.2(H) 0.9 - 1.1 [facility] Comment: INR Therapeutic Range: Adult: 2.0 - 3.0 for pulmonary embolism or prophylaxis against venous thrombosis or systemic embolization. 2.0 - 3.0 for patients with tissue heart valves. 2.5 - 3.5 for patients with mechanical heart valves or post OK. Pediatric (12 years and under): 1.5 - [...] HEMATOLOGY ORDERABLES Final Result Performing Organization Address City/[facility]/ZIP Co de Phone Number [facility] [address] [place] [address] * (ABNORMAL) BASIC METABOLIC PANEL (11/07/2007 9:18 AM CDT) CREATININE 1.00 0.67 - 1.17 mg/dL [facility] POTASSIUM 4.1 3.5 - 4.9 mmol/L [facility] BUN 15 6 - 20 mg/dL [facility] CHLORIDE 102 96 - 108 mmol/L [facility] GLUCOSE 186(H) 65 - 99 mg/dL [facility] SODIUM 139 135 - 145 mmol/L [facility] CALCIUM 9.1 8.4 - 10.2 mg/dL [facility] CO2 27 22 - 30 mmol/L [facility] GFR, >60 >=60 mL/min/1. 7 sq meter [facility] GFR >60 >=60 mL/min/1. 7 sq meter [facility] Comment: Estimated GFR rate interpretative information for both Americans and non- Americans is available on the [facility] Intranet at: [email or web address] Select: Lab Policies and Procedures Select: Reference Ranges - GFR Blood specimen (specimen) 11/07/2007 9:18 AM CDT 11/07/2007 9:36 AM CDT Domingo Teran MD CHEMISTRY ORDERABLES Edited [facility] [address] [place] [address] * POC GLUCOSE (11/07/2007 7:22 AM CDT) GLUCOSE POC 87 65 - 99 mg/dL [facility] Venous blood specimen (specimen) 11/07/2007 7:22 AM CDT 11/07/2007 7:22 AM CDT Jesusita Roland MD POINT OF CARE TESTING Final Result Performing Organization Address City/[facility]/ZIP Co de Phone Number [facility] [address] [place] [address] * POC GLUCOSE (11/06/2007 8:53 PM CDT) GLUCOSE POC 93 65 - 99 mg/dL [facility] Venous blood specimen (specimen) 11/06/2007 8:53 PM CDT 11/06/2007 8:53 PM CDT Jesusita Roland MD POINT OF CARE TESTING Final Result [facility] [address] [place] [address] * POC GLUCOSE (11/06/2007 4:42 PM CDT) GLUCOSE POC 95 65 - 99 mg/dL [facility] Venous blood specimen (specimen) 11/06/2007 4:42 PM CDT 11/06/2007 4:42 PM CDT Jesusita Roland MD POINT OF CARE TESTING Final Result Performing Organization Address City/[facility]/ZIP Co de Phone Number [facility] [address] [place] [address] * POC GLUCOSE (11/06/2007 11:32 AM CDT) GLUCOSE POC 96 65 - 99 mg/dL [facility] Venous blood specimen (specimen) 11/06/2007 11:32 AM CDT 11/06/2007 11:32 AM CDT us Jesusita Roland MD POINT OF CARE TESTING Final Result Performing Organization Address City/[facility]/ZIP Co de Phone Number [facility] [address] [place] [address] * (ABNORMAL) POC GLUCOSE (11/06/2007 7:27 AM CDT) GLUCOSE POC 108(H) 65 - 99 mg/dL [facility] Venous blood specimen (specimen) 11/06/2007 7:27 AM CDT 11/06/2007 7:27 AM CDT Jesusita Roland MD POINT OF CARE TESTING Final Result Performing Organization Address City/[facility]/ZIP Co de Phone Number [facility] [address] [address] * (ABNORMAL) POC GLUCOSE (11/05/2007 8:02 PM CDT) GLUCOSE POC 160(H) 65 - 99 mg/dL [facility] Venous blood specimen (specimen) 11/05/2007 8:02 PM CDT 11/05/2007 8:02 PM CDT Jesusita Roland MD POINT OF CARE TESTING Final Result Performing Organization Address City/[facility]/ZIP Co de Phone Number [facility] [address] [place] [address] * POC GLUCOSE (11/05/2007 4:54 PM CDT) [facility] Signature GLUCOSE POC 91 65 - 99 mg/dL [facility] Venous blood specimen (specimen) 11/05/2007 4:54 PM CDT 11/05/2007 4:54 PM CDT Jesusita Roland MD POINT OF CARE TESTING Final Result Performing Organization Address City/[facility]/ZIP Co de Phone Number [facility] [address] [place] [address] * (ABNORMAL) HEMOGLOBIN A1C (11/05/2007 3:37 PM CDT) GLUCOSE, MEAN BLOOD 161 mg/dL [facility] HEMOGLOBIN A1C 6.7(H) 4.1 - 6.1 % of Hgb [facility] Blood specimen (specimen) 11/05/2007 3:37 PM CDT 11/05/2007 3:49 PM CDT Kandis Vásquez MD CHEMISTRY ORDERABLES Final Result Performing Organization Address [facility] Co de Phone Number [facility] [address] [place] [address] * (ABNORMAL) POC GLUCOSE (11/05/2007 11:30 AM CDT) GLUCOSE POC 62(L) 65 - 99 mg/dL [facility] Venous blood specimen (specimen) 11/05/2007 11:30 AM CDT 11/05/2007 11:30 AM CDT Jesusita Roland MD POINT OF CARE TESTING Final Result Performing Organization Address [facility] Co de Phone Number [facility] [address] [place] [address] * POC GLUCOSE (11/05/2007 7:41 AM CDT) GLUCOSE POC 88 65 - 99 mg/dL [facility] Venous blood specimen (specimen) 11/05/2007 7:41 AM CDT 11/05/2007 7:41 AM CDT Jesusita Roland MD POINT OF CARE TESTING Final Result Performing Organization Address City/[facility] Co de Phone Number [facility] [address] [place] [address] * (ABNORMAL) BASIC METABOLIC PANEL (11/05/2007 4:30 AM CDT) BUN 19 6 - 20 mg/dL [facility] CHLORIDE 101 96 - 108 mmol/L [facility] GLUCOSE 104(H) 65 - 99 mg/dL [facility] SODIUM 138 135 - 145 mmol/L [facility] CALCIUM 8.4 8.4 - 10.2 mg/dL [facility] CO2 26 22 - 30 mmol/L [facility] CREATININE 1.04 0.67 - 1.17 mg/dL [facility] POTASSIUM 4.0 3.5 - 4.9 mmol/L [facility] GFR, >60 >=60 mL/min/1. 7 sq meter [facility] GFR >60 >=60 mL/min/1. 7 sq meter [facility] Comment: Estimated GFR rate interpretative information for both Americans and non- Americans is available on the [facility] Intranet at: [email or web address] Select: Lab Policies and Procedures Select: Reference Ranges - GFR Blood specimen (specimen) 11/05/2007 4:30 AM CDT 11/05/2007 5:22 AM CDT us Jesusita Roland MD CHEMISTRY ORDERABLES Edited [facility] [address] [place] [place] [address] * CLOSTRIDIUM DIFFICILE TOXIN (11/04/2007 11:20 PM [...] GLUCOSE POC 111(H) 65 - 99 mg/dL [facility] Venous blood specimen (specimen) 11/04/2007 8:02 PM CDT 11/04/2007 8:02 PM CDT Jesusita Roland MD POINT OF CARE TESTING Final Result Performing Organization Address City/[facility]/ZIP Co de Phone Number [facility] [address] [place] [address] * (ABNORMAL) POC GLUCOSE (11/04/2007 4:07 PM CDT) GLUCOSE POC 138(H) 65 - 99 mg/dL [facility] Venous blood specimen (specimen) 11/04/2007 4:07 PM CDT 11/04/2007 4:07 PM CDT Jesusita Roland MD POINT OF CARE TESTING Final Result Performing Organization Address [facility]/ZIP Co de Phone Number [facility] [address] [place] [address] * POC GLUCOSE (11/04/2007 11:35 AM CDT) GLUCOSE POC 92 65 - 99 mg/dL [facility] Venous blood specimen (specimen) 11/04/2007 11:35 AM CDT 11/04/2007 11:35 AM CDT Jesusita Roland MD POINT OF CARE TESTING Final Result Performing Organization Address City/[facility]/ZIP Co de Phone Number [facility] [address] [place] [address] * (ABNORMAL) POC GLUCOSE (11/04/2007 7:15 AM CDT) GLUCOSE POC 146(H) 65 - 99 mg/dL [facility] Venous blood specimen (specimen) 11/04/2007 7:15 AM CDT 11/04/2007 7:15 AM CDT us Jesusita Roland MD POINT OF CARE TESTING Final Result Performing Organization Address City/[facility]/ZIP Co de Phone Number [facility] [address] [place] [address] * (ABNORMAL) BASIC METABOLIC PANEL (11/04/2007 4:35 AM CDT) CO2 25 22 - 30 mmol/L [facility] CREATININE 1.04 0.67 - 1.17 mg/dL [facility] POTASSIUM 3.9 3.5 - 4.9 mmol/L [facility] BUN 20 6 - 20 mg/dL [facility] CHLORIDE 102 96 - 108 mmol/L [facility] GLUCOSE 90 65 - 99 mg/dL [facility] SODIUM 136 135 - 145 mmol/L [facility] CALCIUM 8.3(L) 8.4 - 10.2 mg/dL [facility] GFR, >60 >=60 mL/min/1. 7 sq meter [facility] GFR >60 >=60 mL/min/1. 7 sq meter [facility] Comment: Estimated GFR rate interpretative information for both Americans and non- Americans is available on the [facility] Intranet at: [email or web address] Select: Lab Policies and Procedures Select: Reference Ranges - GFR Blood specimen (specimen) 11/04/2007 4:35 AM CDT 11/04/2007 5:37 AM CDT us Jesusita Roland MD CHEMISTRY ORDERABLES Edited [facility] [address] [place] [address] * (ABNORMAL) PROTIME-INR (11/04/2007 4:35 AM CDT) Pathologist [facility] INR 1.5(H) 0.9 - 1.1 [facility] Comment: INR Therapeutic Range: Adult: 2.0 - 3.0 for pulmonary embolism or prophylaxis against venous thrombosis or systemic embolization. 2.0 - 3.0 for patients with tissue heart valves. 2.5 - 3.5 for patients with mechanical heart valves or post OK. Pediatric (12 years and under): 1.5 - 3.0 Although the target range in children is not well established, INR values of 1.5 - 3.0 are recommended for most patients. Higher values have been used in children with prosthetic cardiac valves and hereditary clotting disorders. (<3 days) therapeutic ranges have not been established. PROTIME 18.1(H) 12.7 - 15.1 Seconds [facility] Blood specimen (specimen) 11/04/2007 4:35 AM CDT 11/04/2007 5:37 AM CDT us Jesusita Roland MD HEMATOLOGY ORDERABLES Final Result Performing Organization Address City/State/[facility] Co de Phone Number [facility] [address] [place] [address] * (ABNORMAL) CBC WITH DIFFERENTIAL (11/04/2007 4:35 AM CDT) [facility] HEMATOCRIT 45.9 40.0 - 48.0 % [facility] RDW-STDEV 51.2(H) 37.1 - 48.7 fL [facility] RBC 4.57 4.50 - 5.40 M/uL [facility] MCHC 32.7 31.5 - 35.5 % [facility] MCV 100.4(H) 82.0 - 99.0 fL [facility] PLATELETS 162 140 - 350 K/uL [facility] HEMOGLOBIN 15.0 13.6 - 16.5 g/dL [facility] RDW 14.1 11.5 - 14.5 % [facility] WBC 7.2 4.0 - 9.8 K/uL [facility] MCH 32.8(H) 27.2 - 32.6 pg [facility] MPV 11.4 9.3 - 12.4 fL [facility] BASOPHILS ABSOLUTE 0.07 0.00 - 0.20 K/uL [facility] MONOCYTES 16(H) 3 - 13 % [facility] MONOCYTE ABSOLUTE 1.15 0.10 - 1.30 K/uL [facility] NEUTROPHILS 64 45 - 70 % [facility] NEUTROPHIL ABSOLUTE 4.55 1.90 - 7.00 K/uL [facility] EOSINOPHILS 1 0 - 7 % [facility] EOSINOPHIL ABSOLUTE 0.07 0.00 - 0.70 K/uL [facility] LYMPHOCYTES 18 16 - 45 % [facility] LYMPHOCYTE ABSOLUTE 1.31 0.70 - 4.50 K/uL [facility] BASOPHILS 1 0 - 2 % [facility] Blood specimen (specimen) 11/04/2007 4:35 AM CDT 11/04/2007 5:37 AM CDT us Jesusita Roland MD HEMATOLOGY ORDERABLES Edited INTERFACE SYSTEM Refer to clinic/hospital department [facility] [address] [place] [address] * SPUTUM CULTURE WITH GRAM STAIN (11/03/2007 10:27 PM CDT) GRAM STAIN Non diagnostic pattern Many WBC's seen INTERFACE SYSTEM FINAL REPORT Heavy growth normal upper respiratory leticia INTERFACE SYSTEM 11/03/2007 10:2 7 PM CDT 11/03/2007 11:00 PM CDT Kandis Vásquez MD MICROBIOLOGY - GENERAL ORD ERABLES Final Result Performing Organization Address City/[facility] Co de Phone Number INTERFACE SYSTEM [...] is less sensitive for viral detection. Result [facility] Kandis Vásquez MD MICROBIOLOGY - GENERAL ORD ERABLES Final Result Performing Organization Address [facility] Co de Phone Number INTERFACE SYSTEM Refer to clinic/hospital department * POC GLUCOSE (11/03/2007 8:18 PM CDT) Pathologist [facility] GLUCOSE POC 98 65 - 99 mg/dL [facility] Venous blood specimen (specimen) 11/03/2007 8:18 PM CDT 11/03/2007 8:18 PM CDT Jesusita Roland MD POINT OF CARE TESTING Final Result Performing Organization Address City/[facility] Co de Phone Number [facility] [address] [place] [address] * ECHOCARDIOGRAM COMPLETE (11/03/2007 4:41 PM CDT) Narrative INTERFACE SYSTEM - 11/03/2007 4:41 PM CDT [address] [address] [place] [address] [email or web address] Echocardiogram Patient: Patricia Dunham Study ID: Adult Echo Gender: M : 1945 Age: 62 years Race: 1 Room: Bed: Height: 70 in ( 178 cm ) Study Date: November 03, 2007 Patient status: Inpatient Weight: 217.58 lb ( 98.9 kg ) Access. #: [id number] POC: Ordering: Milton Consulting: Grant Attending MD: [...] 16:24:28 Procedure Note Provider, Historical - 11/03/2007 [address] [place] [id number]: [email or web address] Transthoracic Echocardiogram Patient: Patricia Dunham Study ID: Adult Echo Gender: M : 1945 Age: 62 years Race: 1 Room: Bed: Height: 70 in ( 178 cm ) Study Date: November 03, 2007 Patient status: Inpatient Weight: 217.58 lb ( 98.9 kg ) Access. #: [id number] POC: Ordering: Milton Consulting: Grant Attending MD: [...] US ORDERABLES Final Result Performing Organization Address City/[facility] Co de Phone Number INTERFACE SYSTEM Refer to clinic/hospital department * (ABNORMAL) POC GLUCOSE (11/03/2007 4:33 PM CDT) GLUCOSE POC 149(H) 65 - 99 mg/dL [facility] Venous blood specimen (specimen) 11/03/2007 4:33 PM CDT 11/03/2007 4:33 PM CDT Jesusita Roland MD POINT OF CARE TESTING Final Result Performing Organization Address [facility] de Phone Number [facility] [address] [place] [address] * US DOPPLER ARTERIAL LEGS BILATERAL (11/03/2007 3:33 PM CDT) Anatomical Region Laterality Modality Lower Extremity Other Narrative 11/03/2007 3:33 PM CDT Please type in written order [place] [address] [email or web address] Peripheral Venous Study Patient: Patricia Dunham Study ID: BLOOD FLOW STUDY Gender: M : 1945 Age: 62 years Race: 1 Room: Bed: Height: Study Date: November 03, 2007 Patient status: Inpatient Weight: Access. #: [id number] POC: Internal Auditor: Sandy Ordering: Milton Consulting: Grant Attending MD: [...] in written order in Special Instructions field. [address] [address] [place] [address] [email or web address] [facility] Peripheral Venous Study Patient: Patricia Dunham Study ID: BLOOD FLOW STUDY Gender: M : 1945 Age: 62 years Race: 1 Room: Bed: Height: Study Date: November 03, 2007 Patient status: Inpatient Weight: Access. #: [id number] POC: Internal Auditor: Sandy Ordering: Milton Consulting: Grant Attending MD: [...] Thakkar Confirmed November 03, 2007 15:30:04 us Jeussita Roland MD ORDERABLES Final Result * SPUTUM [...] (ABNORMAL) POC GLUCOSE (11/03/2007 11:36 AM CDT) [facility] GLUCOSE POC 136(H) 65 - 99 mg/dL [facility] Venous blood specimen (specimen) 11/03/2007 11:36 AM CDT 11/03/2007 11:36 AM CDT us Jesusita Roland MD POINT OF CARE TESTING Final Result Performing Organization Address City/[facility]/ZIP Co de Phone Number [facility] [address] [place] [address] * TROPONIN (W/REFLEX CKMB/CK) (11/03/2007 11:32 AM CDT) [facility] TROPONIN T <0.01 <=0.03 ng/mL [facility] TROPONIN T INTERP Negative [facility] Blood specimen (specimen) 11/03/2007 11:32 AM CDT 11/03/2007 11:35 AM CDT us Jesusita Roland MD CHEMISTRY ORDERABLES Edited Performing Organization Address City/[facility]/ZIP Co de Phone Number [facility] [address] [place] [address] * BLOOD CULTURE (11/03/2007 9:52 AM CDT) [facility] PRELIMINARY REPORT No growth to date. Culture in progress INTERFACE SYSTEM FINAL REPORT No growth 5 days INTERFACE SYSTEM Blood specimen (specimen) 11/03/2007 9:52 AM CDT 11/03/2007 12:07 PM CDT us Jesusita Roland MD MICROBIOLOGY - GENERAL ORDER JOSEPH Final Result Performing Organization Address City/[facility] de Phone Number INTERFACE SYSTEM Refer [...] ORDER JOSEPH Final Result Performing Organization Address [facility] de Phone Number INTERFACE SYSTEM Refer to clinic/hospital department * (ABNORMAL) POC GLUCOSE (11/03/2007 7:07 AM CDT) GLUCOSE POC 129(H) 65 - 99 mg/dL [facility] Venous blood specimen (specimen) 11/03/2007 7:07 AM CDT 11/03/2007 7:07 AM CDT us Jesusita Roland MD POINT OF CARE TESTING Final Result Performing Organization Address [facility] de Phone Number [facility] [address] [place] [address] * (ABNORMAL) BASIC METABOLIC PANEL (11/03/2007 2:55 AM CDT) GLUCOSE 116(H) 65 - 99 mg/dL [facility] SODIUM 137 135 - 145 mmol/L [facility] CALCIUM 8.8 8.4 - 10.2 mg/dL [facility] CO2 27 22 - 30 mmol/L [facility] CREATININE 1.23(H) 0.67 - 1.17 mg/dL [facility] POTASSIUM 4.3 3.5 - 4.9 mmol/L [facility] BUN 17 6 - 20 mg/dL [facility] CHLORIDE 100 96 - 108 mmol/L [facility] GFR, >60 >=60 mL/min/1. 7 sq meter [facility] GFR 60 >=60 mL/min/1. 7 sq meter [facility] Comment: Estimated GFR rate interpretative information for both Americans and non- Americans is available on the [facility] Intranet at: [email or web address] Select: Lab Policies and Procedures Select: Reference Ranges - GFR Blood specimen (specimen) 11/03/2007 2:55 AM CDT 11/03/2007 2:56 AM CDT Jesusita Roland MD CHEMISTRY ORDERABLES Edited [facility] [address] [place] [address] * TROPONIN (W/REFLEX CKMB/CK) (11/03/2007 2:55 AM CDT) TROPONIN T <0.01 <=0.03 ng/mL [facility] TROPONIN T INTERP Negative [facility] Blood specimen (specimen) 11/03/2007 2:55 AM CDT 11/03/2007 2:56 AM CDT Jesusita Roland MD CHEMISTRY ORDERABLES Edited [facility] [address] [place] [address] * (ABNORMAL) POC GLUCOSE (11/02/2007 8:25 PM CDT) GLUCOSE POC 103(H) 65 - 99 mg/dL [facility] Venous blood specimen (specimen) 11/02/2007 8:25 PM CDT 11/02/2007 8:25 PM CDT us Jesusita Roland MD POINT OF CARE TESTING Final Result [facility] [address] [place] [address] * XR CHEST PA AND LATERAL (11/02/2007 7:43 PM CDT) Anatomical Region Laterality Modality Chest Other 11/02/2007 7:43 PM CDT Narrative 11/03/2007 9:04 AM CDT [facility] [address] [place], [place] [address] Admit Date: 11/02/2007 PATRICIA DUNHAM Sex: M Admit Prov: BERTHAJESUSITA LOPEZ Date: 1945 Primary Care Prov: CARMINEBeeMERYL CMRN: [id number] Room: [address] [place] [address] SSN: [id number] IMAGING SERVICES Ordering Prov: N/A Accession Number: [id number] Interpretation CHEST 2 VIEWS 11/02/2007 History: Congestive [...] [facility] [address] [place], [place] [address] Admit Date: 11/02/2007 PATRICIA DUNHAM Sex: M Admit Prov: JESUSITA ROLAND Date: 1945 Primary Care Prov: MERYL FRIEDMAN CMRN: [id number] Room: [address] [place] [address] SSN: [id number] IMAGING SERVICES Ordering Prov: N/A Interpretation CHEST [...] PM CDT) TROPONIN T <0.01 <=0.03 ng/mL [facility] TROPONIN T INTERP Negative [facility] Blood specimen (specimen) 11/02/2007 7:05 PM CDT 11/02/2007 7:13 PM CDT us Jesusita Roland MD CHEMISTRY ORDERABLES Edited [facility] [address] [facility] [address] * TSH (11/02/2007 7:05 PM CDT) TSH 1.59 0.27 - 4.20 uU/mL [facility] Blood specimen (specimen) 11/02/2007 7:05 PM CDT 11/02/2007 7:13 PM CDT Jesusita Roland MD CHEMISTRY ORDERABLES Final R esult Performing Organization Address [facility] Co de Phone Number [facility] [address] [place] [address] * (ABNORMAL) HEPATIC FUNCTION PANEL (11/02/2007 7:05 PM CDT) BILIRUBIN TOTAL 1.0 0.2 - 1.0 mg/dL [facility] ALT 72(H) 0 - 41 U/L [facility] ALKALINE PHOSPHATASE 58 40 - 129 U/L [facility] TOTAL PROTEIN 7.0 6.3 - 8.6 g/dL [facility] BILIRUBIN DIRECT 0.4(H) 0.0 - 0.3 mg/dL [facility] AST 38 12 - 38 U/L [facility] ALBUMIN 4.2 3.4 - 4.8 g/dL [facility] Blood specimen (specimen) 11/02/2007 7:05 PM CDT 11/02/2007 7:13 PM CDT Jesusita Roland MD CHEMISTRY ORDERABLES Final R esult Performing Organization Address [facility] Co de Phone Number [facility] [address] [place] [address] * (ABNORMAL) PROTIME-INR (11/02/2007 7:05 PM CDT) INR 1.3(H) 0.9 - 1.1 [facility] Comment: INR Therapeutic Range: Adult: 2.0 - 3.0 for pulmonary embolism or prophylaxis against venous thrombosis or systemic embolization. 2.0 - 3.0 for patients with tissue heart valves. 2.5 - 3.5 for patients with mechanical heart valves or post OK. Pediatric (12 years and under): 1.5 - 3.0 Although the target range in children is not well established, INR values of 1.5 - 3.0 are recommended for most patients. Higher values have been used in children with prosthetic cardiac valves and hereditary clotting disorders. (<3 days) therapeutic ranges have not been established. PROTIME 16.2(H) 12.7 - 15.1 Seconds [facility] Blood specimen (specimen) 11/02/2007 7:05 PM CDT 11/02/2007 7:13 PM CDT us Jesusita Roland MD HEMATOLOGY ORDERABLES Final Result [facility] [address] [place] [address] * (ABNORMAL) CBC WITH DIFFERENTIAL (11/02/2007 7:05 PM CDT) MCV 101.4(H) 82.0 - 99.0 fL [facility] PLATELETS 169 140 - 350 K/uL [facility] HEMOGLOBIN 16.6(H) 13.6 - 16.5 g/dL [facility] RDW 14.1 11.5 - 14.5 % [facility] WBC 9.3 4.0 - 9.8 K/uL [facility] MCH 33.3(H) 27.2 - 32.6 pg [facility] MPV 11.7 9.3 - 12.4 fL [facility] HEMATOCRIT 50.6(H) 40.0 - 48.0 % [facility] RDW-STDEV 52.0(H) 37.1 - 48.7 fL [facility] RBC 4.99 4.50 - 5.40 M/uL [facility] MCHC 32.8 31.5 - 35.5 % [facility] EOSINOPHILS 0 0 - 7 % [facility] EOSINOPHIL ABSOLUTE 0.02 0.00 - 0.70 K/uL [facility] LYMPHOCYTES 13(L) 16 - 45 % [facility] LYMPHOCYTE ABSOLUTE 1.18 0.70 - 4.50 K/uL [facility] BASOPHILS 1 0 - 2 % [facility] BASOPHILS ABSOLUTE 0.05 0.00 - 0.20 K/uL [facility] MONOCYTES 15(H) 3 - 13 % [facility] MONOCYTE ABSOLUTE 1.43(H) 0.10 - 1.30 K/uL [facility] NEUTROPHILS 71(H) 45 - 70 % [facility] NEUTROPHIL ABSOLUTE 6.66 1.90 - 7.00 K/uL [facility] Blood specimen (specimen) 11/02/2007 7:05 PM CDT 11/02/2007 7:13 PM CDT us Jesusita Roland MD HEMATOLOGY ORDERABLES Edited INTERFACE SYSTEM Refer to clinic/hospital department [facility] [address] [place] [address] * BASIC METABOLIC PANEL (11/02/2007 7:05 PM CDT) BUN 15 6 - 20 mg/dL [facility] CHLORIDE 102 96 - 108 mmol/L [facility] GLUCOSE 92 65 - 99 mg/dL [facility] SODIUM 138 135 - 145 mmol/L [facility] CALCIUM 9.2 8.4 - 10.2 mg/dL [facility] CO2 25 22 - 30 mmol/L [facility] CREATININE 1.10 0.67 - 1.17 mg/dL [facility] POTASSIUM 4.5 3.5 - 4.9 mmol/L [facility] GFR, >60 >=60 mL/min/1.7 sq meter [facility] GFR >60 >=60 mL/min/1.7 sq meter [facility] Comment: Estimated GFR rate interpretative information for both Americans and non- Americans is available on the [facility] Intranet at: [email or web address] Select: Lab Policies and Procedures Select: Reference Ranges - GFR Blood specimen (specimen) 11/02/2007 7:05 PM CDT 11/02/2007 7:13 PM CDT Jesusita Roland MD CHEMISTRY ORDERABLES Edited Performing Organization Address City/[facility]/ZIP Co de Phone Number [facility] [address] [place] [address] * LIPID PANEL (11/02/2007 7:05 PM CDT) CHOL/HDL RATIO 2.8 2.0 - 5.0 [facility] TRIGLYCERIDE 59 10 - 149 mg/dL [facility] HDL 40 40 - 59 mg/dL [facility] CHOLESTEROL 110 100 - 199 mg/dL [facility] LDL CALCULATED 58 <=99 mg/dL [facility] LIPID PANEL COMMENT See Below [facility] Comment: The adult ATP and pediatric NCEP classifications for lipids are available on the [facility] Intranet at: [email or web address] Select: Lab Policies and Procedures,Current Select: Lipid Panel Interpretation Blood specimen (specimen) 11/02/2007 7:05 PM CDT 11/02/2007 7:13 PM CDT us Jesusita Roland MD CHEMISTRY ORDERABLES Edited [facility] [address] [place] [address] documented in this encounter Visit Diagnoses Diagnosis Congestive heart failure, unspecified documented in this encounter Care Teams Craft Center Director Relationship Specialty Start Date End Date Meryl Friedman MD PCP - General 12/10/07 documented as of this encounter
--- OUTSIDE RECORDS SUMMARY | 2025-06-14 17:59 | XMS_ITS | Encounter Summary ---
Author Organization [facility] Address 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 Gender Identity Not on file Sexual Orientation Not on file documented as of this encounter Plan of Treatment Not on file documented as of this encounter Procedures Procedure Name Priority Date/Time Associated Diagnosis Comments PROTIME-INR Routine 12/15/2007 10:33 AM CDT documented in this encounter Results * (ABNORMAL) PROTIME-INR (12/15/2007 10:33 AM CDT) PROTIME 23.3(H) 12.7 - 15.1 Seconds [facility] INR 2.1(H) 0.9 - 1.1 [facility] [place] [place] [facility] Comment: INR Therapeutic Range: Adult: 2.0 - 3.0 for pulmonary embolism or prophylaxis against venous thrombosis or systemic embolization. 2.0 - 3.0 for patients with tissue heart valves. 2.5 - 3.5 for patients with mechanical heart valves or post [place]. Pediatric (12 years and under): 1.5 - [...] Jr., MD HEMATOLOGY ORDERABLES F inal Result [facility] [place] [place] [facility] CLIA# [id number] [address] [place] [address] documented in this encounter Visit Diagnoses Diagnosis Atrial fibrillation (CMS/HCC) Atrial fibrillation documented in this encounter Care Teams Access Specialist Relationship Specialty Start Date End Date Dimitry Kamara MD PCP - General 12/10/07 documented as of this encounter
[2025-06-14 18:22] VITALS: BP 152/80; PULSE 73; RESP 16; O2SAT 97
== END 2025-06-14 19:13 ==
PROVIDERS: Emergency Provider Emergency Medicine; PCP Internal Medicine
DX: N39.0 Urinary tract infection, site not specified (principal); K40.90 Unilateral inguinal hernia, without obstruction or gangrene, not specified as recurrent; I25.10 Atherosclerotic heart disease of native coronary artery without angina pectoris; I48.91 Unspecified atrial fibrillation; I10 Essential (primary) hypertension; J44.9 Chronic obstructive pulmonary disease, unspecified; E78.5 Hyperlipidemia, unspecified; E55.9 Vitamin D deficiency, unspecified; E11.9 Type 2 diabetes mellitus without complications; F17.210 Nicotine dependence, cigarettes, uncomplicated; Z86.73 Personal history of transient ischemic attack (TIA), and cerebral infarction without residual deficits; Z87.442 Personal history of urinary calculi; Z86.0100 Personal history of colon polyps, unspecified; Z79.4 Long term (current) use of insulin; Z79.84 Long term (current) use of oral hypoglycemic drugs; Z79.01 Long term (current) use of anticoagulants
CPT/HCPCS: 36415; 76870; 80053; 81001; 85025; 87086; 93976; 99284